=== PATIENT | male | born 1955 | race American Indian/Alaskan Native ===

== ENCOUNTER → 2017-10-31 | Outpatient (CLI) | payer MEDICARE, OTHER ==
[2017-10-31 11:05] LABS: Albumin 3.6 g/dL (3.5-5.0); Calcium 8.2 mg/dL (8.4-10.2); Total Bilirubin 0.3 mg/dL (0.2-1.3); Total Protein 6.1 g/dL (6.3-8.2)
[2017-10-31 18:20] LABS: Hemoglobin A1C 7.1 % (4.0-6.0)
== END | disposition home or self-care (01) ==
LOC: LABWHC1 09:11
PROVIDERS: ATTEND Internal Medicine Endocrinology, Diabetes & Metabolism
DX: E11.65 Type 2 diabetes mellitus with hyperglycemia (principal)
CPT/HCPCS: 36415; 80053; 80061; 82043; 82570; 83036

== ENCOUNTER → 2017-12-06 | Outpatient (CLI) | payer MEDICARE, OTHER | END | disposition home or self-care (01) | LOC: RADMRIMAIN 14:55 | PROVIDERS: ATTEND Otolaryngology | DX: Z53.9 Procedure and treatment not carried out, unspecified reason (principal) | CPT/HCPCS: 82565 ==

== ENCOUNTER → 2017-12-06 | Outpatient (CLI) | payer MEDICARE, OTHER ==
[2017-12-06 15:56] LABS: HCT 39.6 % (39.0-53.0); HGB 12.7 gm/dL (13.0-17.5); MCH 27.6 pg (25.0-35.0); MCHC 32.1 g/dL (31.0-37.0); MCV 85.9 fL (80.0-100.0); Mean Platelet Volume 6.4; Platelet Count 330 k/uL (150-450); RBC 4.61 m/uL (4.30-5.90); RDW 14.4 % (11.5-15.5); WBC 9.9 k/uL (3.8-10.6)
[2017-12-06 16:19] LABS: Appearance,Urine Clear (Clear); Bacteria,Urine Occasional /hpf; Bilirubin,Urine Negative (Negative); Blood,Urine Negative (Negative); Color,Urine Yellow; Glucose,Urine (UA) 1+ (Negative); Hyaline Casts,Urine 4 /lpf (0-2); Ketones,Urine Negative (Negative); Leukocyte Esterase,Urine Small (Negative); Mucus,Urine Rare /hpf; Nitrite,Urine Negative (Negative); Protein,Urine 3+ (Negative); RBC,Urine 1 /hpf (0-5); Specific Gravity,Urine 1.013 (1.001-1.035); Squamous Epithelial Cell,Urine 1 /hpf (0-4); Urobilinogen,Urine <2.0 mg/dL (<2.0); WBC,Urine 4 /hpf (0-5)
[2017-12-06 16:30] LABS: Calcium 8.9 mg/dL (8.4-10.2); Phosphorus 3.8 mg/dL (2.5-4.5); Potassium 5.1 mmol/L (3.5-5.1); Total Bilirubin 0.3 mg/dL (0.2-1.3); Total Protein 6.8 g/dL (6.3-8.2)
== END | disposition home or self-care (01) ==
LOC: LABWHC1 15:31
PROVIDERS: ATTEND Internal Medicine Endocrinology, Diabetes & Metabolism
DX: E78.5 Hyperlipidemia, unspecified (principal); E11.65 Type 2 diabetes mellitus with hyperglycemia; I10 Essential (primary) hypertension
CPT/HCPCS: 36415; 80053; 81001; 84100; 85027

== ENCOUNTER → 2017-12-26 | Outpatient (CLI) | payer MEDICARE, OTHER ==
--- NOTE | 2017-12-26 21:08 | US ---
EXAMINATION TYPE: US kidneys/renal and bladder DATE OF EXAM: 12/26/2017 COMPARISON: NONE CLINICAL HISTORY: E11.65 Type 2 Diabetes. Abnormal labs, pt is a diabetic EXAM MEASUREMENTS: Right Kidney: 11.3 x 5.8 x 4.9 cm Left Kidney: 11.2 x 6.1 x 5.7 cm Right Kidney: Possible perinephric edema, otherwise appeared wnl Left Kidney: Possible perinephric edema, small cyst lateral= 0.8 x 0.8 x 0.7 cm with increased throug h transmission. Bladder: wnl Bilateral Jets seen: Only left jet visualized There is no evidence for hydronephrosis at this point in time. No nephrolithiasis is seen. The uri nary bladder is anechoic. Bilateral ureteral jets are seen. IMPRESSION: 1. Crescentic areas of hypoattenuation are seen around the kidneys and may represent nonspecific isabella nephric fat stranding/edema although very less likely other considerations are for subcapsular hemato ma and the setting of trauma or perinephric masses such as lymphangiectasia or renal lymphoma. CT is recommended to ensure crescentic regions represent nonspecific perinephric fat stranding. 2. 8mm left renal cyst.
== END | disposition home or self-care (01) ==
LOC: RADUSWWP 15:19
PROVIDERS: ATTEND Internal Medicine Endocrinology, Diabetes & Metabolism
DX: N28.1 Cyst of kidney, acquired (principal); R60.0 Localized edema; E11.65 Type 2 diabetes mellitus with hyperglycemia
CPT/HCPCS: 76770

== ENCOUNTER → 2018-02-05 | Outpatient (CLI) | payer MEDICARE, OTHER ==
--- NOTE | 2018-02-05 16:19 | MR ---
EXAMINATION TYPE: MR iac wo con DATE OF EXAM: 02/05/2018 COMPARISON: NONE HISTORY: Headaches, Hearing loss bilateral. TECHNIQUE: Multiplanar, multisequence imaging of the brain and brainstem including dedicated IAC imag ing is performed without IV contrast. Contrast was not given as patient refused FINDINGS: Diffusion weighted images demonstrate no evidence of a recent infarct or other diffusion abnormality. Significant artifact degradation is present. There is no worrisome extra-axial fluid collection. There is ventricular and sulcal prominence with d iffuse cerebral atrophy. Degree of ventricular prominence is slightly out of proportion to degree of sulcal effacement and a normal pressure hydrocephalus cannot be excluded. There is prominence of the third ventricle without prominence of the fourth ventricle. Some scattered foci of T2 hyperintensity throughout the white matter are present. Midline structures demonstrate normal morphology. Thinning of corpus callosum is present. The crani ocervical junction appears within normal limits. Normal vascular flow voids are present. The visualiz ed sinuses are clear and the globes are intact. Mastoid air cells show no increased fluid signal bilaterally. Vestibulocochlear complexes are symmetr ic and felt within normal limits. IMPRESSION: 1. Suboptimal study as patient refused contrast. No worrisome fluid collection in the mastoid air diana ls are seen. 2. There is moderate diffuse cerebral atrophy, cannot exclude a normal pressure hydrocephalus. Correl ate with old outside CT or MRI would be beneficial. Mild underlying chronic small vessel ischemic jose alejandro nges present. 3. Suboptimal study due to significant artifact degradation over left frontal region and patient refu sing IV contrast.
== END | disposition home or self-care (01) ==
LOC: RADMRIMAIN 14:19
PROVIDERS: ATTEND Otolaryngology
DX: G31.9 Degenerative disease of nervous system, unspecified (principal); I67.82 Cerebral ischemia
CPT/HCPCS: 82565; 70551; A9581

== ENCOUNTER → 2018-04-30 | Outpatient (CLI) | payer MEDICARE, OTHER ==
[2018-04-30 12:03] LABS: Basophils % (A) 1 %; Eosinophils # (A) 0.3 k/uL (0-0.7); Eosinophils % (A) 4 %; HGB 12.5 gm/dL (13.0-17.5); Lymphocytes # (A) 1.4 k/uL (1.0-4.8); Lymphocytes % (A) 18 %; MCH 27.5 pg (25.0-35.0); MCHC 32.2 g/dL (31.0-37.0); MCV 85.3 fL (80.0-100.0); Mean Platelet Volume 6.2; Monocytes # (A) 0.4 k/uL (0-1.0); Monocytes % (A) 5 %; Neutrophils # (A) 5.5 k/uL (1.3-7.7); Neutrophils % (A) 71 %; Platelet Count 292 k/uL (150-450); RBC 4.57 m/uL (4.30-5.90); RDW 13.9 % (11.5-15.5); WBC 7.8 k/uL (3.8-10.6)
[2018-04-30 12:21] LABS: INR 0.9 (<1.2); Partial Thromboplastin Time 23.6 sec (22.0-30.0); Prothrombin Time 9.4 sec (9.0-12.0)
[2018-04-30 19:05] LABS: Anion Gap 7.2 mmol/L (4.00-12.00); Carbon Dioxide 23.8 mmol/L (21.6-31.8); Potassium 4.7 mmol/L (3.5-5.5)
== END | disposition home or self-care (01) ==
LOC: LABWHC1 10:35
PROVIDERS: ATTEND Internal Medicine
DX: R80.9 Proteinuria, unspecified (principal)
CPT/HCPCS: 36415; 80051; 82565; 84520; 85025; 85610; 85730

== ENCOUNTER → 2018-05-01 | Day surgery (SDC) | payer MEDICARE, OTHER ==
[~2018-05-01] MED LIST: ALPRAZolam 0.5 MG TAB PO ONE; HYDROmorphone 1 MG/ML 1 ML SYRINGE IVP PRN
[2018-05-01 09:41] VITALS: TEMP 97.9
[2018-05-01 09:41] LABS: Glucose,Whole Blood 159 mg/dL (75-99)
--- NOTE | 2018-05-01 12:03 | CT ---
EXAMINATION TYPE: CT biopsy renal LT DATE OF EXAM: 05/01/2018 COMPARISON: NONE HISTORY: Proteinuria CT DLP: 08/02/2019 mGycm The procedure was explained to the patient. The risks, complications, benefits, and alternatives wer e discussed and any questions were answered. Informed consent was obtained. Patient was placed pron e on the CT table and prepped and draped in the usual sterile fashion. Utilizing CT guidance, an 18 gauge core biopsy needle access into the left renal cortex was achieved and three 18 gauge core samples were obtained. The patient was stable throughout the procedure and r emained stable upon discharge. IMPRESSION: Successful 18 gauge core biopsy of the kidney function.
[2018-05-01 14:16] VITALS: BP 160/74; PULSE 79; RESP 18
== END ==
LOC: RADPROMAIN 09:02
PROVIDERS: ATTEND Internal Medicine Nephrology
DX: I12.9 Hypertensive chronic kidney disease with stage 1 through stage 4 chronic kidney disease, or unspecified chronic kidney disease (principal); E11.22 Type 2 diabetes mellitus with diabetic chronic kidney disease; N18.9 Chronic kidney disease, unspecified
CPT/HCPCS: 86900; 86901; 86850; 50200; 77012; J1170

== ENCOUNTER → 2018-08-13 | Outpatient (CLI) | payer MEDICARE, OTHER ==
[2018-08-13 17:17] LABS: Albumin/Globulin Ratio 1.9 (1.60-3.17); Anion Gap 10.9 mmol/L (4.00-12.00); Calcium 8.1 mg/dL (8.7-10.3); Carbon Dioxide 21.1 mmol/L (21.6-31.8); Globulin 2.1 g/dL (1.6-3.3); LDL Cholesterol,Calculated 54.2 mg/dL (0.0-131.0); Potassium 4.7 mmol/L (3.5-5.5); Total Bilirubin 0.3 mg/dL (0.2-1.2); Total Protein 6.1 g/dL (6.2-8.2); VLDL Calculation 36.8 mg/dL (5.00-40.00)
[2018-08-13 18:46] LABS: Hemoglobin A1C 8.1 % (4.0-6.0)
== END | disposition home or self-care (01) ==
LOC: LABWHC1 10:43
PROVIDERS: ATTEND Internal Medicine Endocrinology, Diabetes & Metabolism
DX: E11.65 Type 2 diabetes mellitus with hyperglycemia (principal)
CPT/HCPCS: 36415; 80053; 80061; 82043; 82570; 83036; 84443

== ENCOUNTER → 2019-03-26 | Outpatient (CLI) | payer MEDICARE, OTHER ==
[2019-03-26 17:03] LABS: African American GFR (CKD) 41.9 (60.0-200.0); Albumin 3.9 g/dL (3.80-4.90); Albumin/Globulin Ratio 1.86 (1.60-3.17); Anion Gap 12.3 mmol/L (4.00-12.00); BUN/Creat Ratio 18.42 Ratio (12.00-20.00); Calcium 8.1 mg/dL (8.7-10.3); Carbon Dioxide 22.7 mmol/L (21.6-31.8); Chol/HDL Ratio 4.45; Globulin 2.1 g/dL (1.6-3.3); LDL Cholesterol,Calculated 54.4 mg/dL (0.0-131.0); Potassium 4.6 mmol/L (3.5-5.5); Total Bilirubin 0.2 mg/dL (0.2-1.2); VLDL Calculation 45.6 mg/dL (5.00-40.00)
[2019-03-26 17:40] LABS: Hemoglobin A1C 7.6 % (4.0-6.0)
== END | disposition home or self-care (01) ==
LOC: LABWHC1 08:28
PROVIDERS: ATTEND Internal Medicine Endocrinology, Diabetes & Metabolism
DX: E11.65 Type 2 diabetes mellitus with hyperglycemia (principal)
CPT/HCPCS: 36415; 80053; 80061; 82043; 82570; 83036; 84443

== ENCOUNTER 2019-05-21 13:23 | Inpatient (IN) | payer MEDICARE, OTHER ==
[2019-05-21 13:33] LABS: Glucose,Whole Blood 187 mg/dL (75-99)
[2019-05-21] MEDS ORDERED: IPRATROPIUM 0.5 MG/2.5 ML NEBU INHALATION STA (13:34)
[2019-05-21] MEDS ORDERED: methylPREDNISolone SOD SUCCI 125 MG/2 ML VIAL IV STA (13:34)
[2019-05-21] MEDS ORDERED: ALBUTEROL NEBULIZED 2.5 MG/3 ML INHALATION STA (13:34)
[2019-05-21 14:11] LABS: Basophils # (A) 0.1 k/uL (0-0.2); Basophils % (A) 1 %; Eosinophils % (A) 0 %; HCT 34.6 % (39.0-53.0); HGB 11.3 gm/dL (13.0-17.5); Lymphocytes # (A) 0.4 k/uL (1.0-4.8); Lymphocytes % (A) 4 %; MCH 27.3 pg (25.0-35.0); MCHC 32.6 g/dL (31.0-37.0); MCV 83.5 fL (80.0-100.0); Monocytes # (A) 0.6 k/uL (0-1.0); Monocytes % (A) 6 %; Neutrophils # (A) 8.6 k/uL (1.3-7.7); Neutrophils % (A) 88 %; Platelet Count 238 k/uL (150-450); RBC 4.14 m/uL (4.30-5.90); RDW 13.8 % (11.5-15.5); WBC 9.8 k/uL (3.8-10.6)
[2019-05-21 14:20] LABS: Albumin 3.4 g/dL (3.5-5.0); Calcium 6.7 mg/dL (8.4-10.2); Potassium 3.4 mmol/L (3.5-5.1); Total Bilirubin 0.8 mg/dL (0.2-1.3); Total Protein 6.4 g/dL (6.3-8.2)
[2019-05-21] MEDS ORDERED: LORazepam 2 MG/ML INJ IV STA (14:31)
--- NOTE | 2019-05-21 14:36 | XR ---
EXAMINATION TYPE: XR chest 1V portable DATE OF EXAM: 05/21/2019 COMPARISON: 11/03/2014 HISTORY: Chest pain short of breath TECHNIQUE: Single view FINDINGS: There is moderate pulmonary edema. Heart is probably enlarged. There are chest leads. There is no definite pleural effusion. IMPRESSION: Moderately severe pulmonary edema is new compared to old exam and could relate to acute h eart failure or RDS.
[2019-05-21] MEDS ORDERED: FUROSEMIDE 10 MG/ML 10 ML VIAL IV STA (14:43)
[2019-05-21] MEDS ORDERED: NITROGLYCERIN-D5W PMX 50 MG in DEXTROSE/WATER 1 250ML.BAG IV ONE (14:43)
[2019-05-21] MEDS ORDERED: HEPARIN SODIUM,PORCINE 5,000 UNIT/ML 1 ML VIAL SQ SCH (14:45)
--- NOTE | 2019-05-21 14:46 | P.HPIM ---
History of Present Illness this is a pleasant 63 years old male with past medical history of COPD not on home oxygen or steroids, status post cardiac arrest in 2016 and he follows up with Dr. Saavedra clothing examiner, diabetes mellitus, hypertension, hyperlipidemia, sleep apnea on CPAP, previous smoker since 2009 he quit. to presents because of worsening dyspnea of one week duration associated with cough and white phlegm especially when he takes his inhaler. Associated with orthopnea and paroxysmal nocturnal dyspnea but no chest pain. He denies abdominal pain, no headache, no vomiting, no change in urine or bowel habits. No fever vitals on admission showing tachycardia and high blood pressure 190/95. He was immediately placed on BiPAP. Labs showingunremarkable CBC and INR, sodium 132, potassium 3.4, creatinine is 3.9. Lactic acid 1.5, AST 75 and ALT 41.. Chest x-ray showing fluid overload. Patient was started on nitroglycerin drip and given 1 dose of Lasix 80 mg. Review of Systems CONSTITUTIONAL: No fever, no malaise, no fatigue. HEENT: No recent visual problems or hearing problems. Denied any sore throat. CARDIOVASCULAR: no palpitations, no syncope. PULMONARY: no hemoptysis. GASTROINTESTINAL: No diarrhea, no nausea, no vomiting, no abdominal pain. Normoactive bowel sounds. NEUROLOGICAL: No headaches, no weakness, no numbness. HEMATOLOGICAL: Denies any bleeding or petechiae. GENITOURINARY: Denies any burning micturition, frequency, or urgency. MUSCULOSKELETAL/RHEUMATOLOGICAL: Denies any joint pain, swelling, or any muscle pain. ENDOCRINE: Denies any polyuria or polydipsia. Past Medical History Past Medical History: COPD, Diabetes Mellitus, Hyperlipidemia, Hypertension, Sleep Apnea/CPAP/BIPAP Additional Past Medical History / Comment(s): callus removed 1rst digit left foot-prophylactic tx of antibiotic currently,uses cpap History of Any Multi-Drug Resistant Organisms: None Reported Past Surgical History: Joint Replacement Additional Past Surgical History / Comment(s): rt total hip Additional Past Anesthesia/Blood Transfusion Reaction / Comment(s): heartrate went very low in recovery room and admitted into icu for hip surgery at [facility]. Past Psychological History: No Psychological Hx Reported Smoking Status: Former smoker Past Alcohol Use History: None Reported Past Drug Use History: None Reported - Past Family History Mother Family Medical History: No Reported History Sister(s) Family Medical History: Cancer Brother(s) Family Medical History: Cancer Medications and Allergies Home Medications Medication Instructions Recorded Confirmed Type Atorvastatin [Lipitor] 80 mg PO HS 11/03/14 05/01/18 History Budesonide-Formot 160-4.5 Mcg 2 puff INHALATION BID 11/03/14 05/01/18 History [Symbicort 160-4.5 Mcg Inhaler] Tiotropium Docena [Spiriva 2 puff INHALATION DAILY 11/03/14 05/01/18 History Respimat] metFORMIN HCL [Glucophage] 1,000 mg PO BID 11/03/14 05/01/18 History Albuterol Inhaler [Ventolin Hfa 1 - 2 puff INHALATION RT-Q6H PRN 04/11/18 05/01/18 History Inhaler] Albuterol Nebulized [Ventolin 2.5 mg INHALATION Q6H PRN 04/11/18 05/01/18 History Nebulized] Amoxicillin 250 mg PO Q8H 04/11/18 05/01/18 History Dorzolamide HCl/Pf [Dorzolamide 2% 1 drop BOTH EYES BID 04/11/18 05/01/18 Hi story Eye Drop] Ergocalciferol [Vitamin D2] 50,000 unit PO Q7D 04/11/18 05/01/18 History Ferrous Sulfate [Iron] 325 mg PO DAILY 04/11/18 05/01/18 History Hydrochlorothiazide 25 mg PO DAILY 04/11/18 05/01/18 History Insulin NPH Hum/Reg Insulin Hm 57 unit SQ QAM 04/11/18 05/01/18 History [NovoLIN 70-30 100 UNIT/ML VIAL] Insuln Asp Prt/Insulin Aspart 56 unit SQ 1800 04/11/18 05/01/18 History [NovoLOG MIX 70-30 VIAL] Latanoprost [Xalatan 0.005%] 1 drop BOTH EYES HS 04/11/18 05/01/18 History Losartan Potassium [Cozaar] 100 mg PO DAILY 04/11/18 05/01/18 History Methocarbamol [Robaxin] 500 mg PO TID PRN 04/11/18 05/01/18 History Pregabalin [Lyrica] 100 mg PO TID 04/11/18 05/01/18 History amLODIPine BESYLATE 10 mg PO DAILY 04/11/18 05/01/18 History cloNIDine HCL [Catapres] 0.2 mg PO BID 04/11/18 05/01/18 History hydrALAZINE HCL [Apresoline] 100 mg PO TID 04/11/18 05/01/18 History Allergies Allergy/AdvReac Type Severity Reaction Status Date / Time antibiotic Allergy pt not Uncoded 05/01/18 09:28 sure of name,throat swelling Physical Exam Vitals: Vital Signs Temp Pulse Resp BP Pulse Ox 05/21/19 14:16 113 H 05/21/19 14:13 112 H 20 190/95 97 05/21/19 13:40 105 H 05/21/19 13:34 105 H 24 163/82 88 L 05/21/19 13:33 24 05/21/19 13:30 98.6 F 114 H 16 127/65 64 L Intake and Output 05/20/19 05/21/19 05/21/19 22:59 06:59 14:59 Other: Weight 107.501 kg GENERAL: The patient is alert and oriented x3, not in any acute distress. Well developed, well nourished. HEENT: Pupils are round and equally reacting to light. EOMI. No scleral icterus. No conjunctival pallor. Normocephalic, atraumatic. No pharyngeal erythema. No thyromegaly. CARDIOVASCULAR: S1 and S2 present. No murmurs, rubs, or gallops. -PULMONARY: Chest is clear to auscultation, bilateral scattered wheezing with bilateral coarse crepitation ABDOMEN: Soft, nontender, nondistended, normoactive bowel sounds. No palpable organomegaly. MUSCULOSKELETAL: No joint swelling or deformity. -EXTREMITIES: No cyanosis, clubbing,. Bilateral leg edema, pitting NEUROLOGICAL: Gross neurological examination did not reveal any focal deficits. SKIN: No rashes. No petechiae Results CBC & Chem 7: 05/21/19 13:54 05/21/19 13:54 Labs: Abnormal Lab Results - Last 24 Hours (Table) 05/21/19 05/21/19 05/21/19 Range/Units 13:32 13:54 13:54 RBC 4.14 L (4.30-5.90) m/uL Hgb 11.3 L (13.0-17.5) gm/dL Hct 34.6 L (39.0-53.0) % Neutrophils # 8.6 H (1.3-7.7) k/uL Lymphocytes # 0.4 L (1.0-4.8) k/uL Sodium 132 L (137-145) mmol/L Potassium 3.4 L (3.5-5.1) mmol/L Chloride 96 L (98-107) mmol/L Carbon Dioxide 19 L (22-30) mmol/L BUN 67 H (9-20) mg/dL Creatinine 3.94 H (0.66-1.25) mg/dL Glucose 182 H (74-99) mg/dL POC Glucose (mg/dL) 187 H (75-99) mg/dL Calcium 6.7 L (8.4-10.2) mg/dL AST 75 H (17-59) U/L Albumin 3.4 L (3.5-5.0) g/dL Assessment and Plan Assessment: acute pulmonary congestion, suspicious for acute heart failure Hypertensive urgency possible acute COPD exacerbation acute hypoxic respiratory failure Acute kidney injury on chronic kidney disease CKD, stage III hypokalemia diabetes mellitus Hypertension Hyperlipidemia Sleep apnea on CPAP/BiPAP Plan: this is a pleasant 63 years old male who presents with acute renal failure and respiratory failure from fluid congestion of the lungs. Continue with BiPAP. Consult legal manager. Continue with Lasix. Check renal ultrasound. Check echocardiogram. cardiology consult. Continue with BiPAP as needed Labs and medication were reviewed.. Continue same treatment. Continue with sym ptomatic treatment. Resume home medication. Monitor lytes and vitals. DVT and GI prophylaxis. Further recommendations of the clinical course of the patient DVT prophylaxis: Subcutaneous heparin GI Prophylaxis: Pepcid PT/OT: Pending Prognosis is guarded
[2019-05-21 14:59] LABS: INR 0.9 (<1.2); Partial Thromboplastin Time 26.7 sec (22.0-30.0); Prothrombin Time 9.4 sec (9.0-12.0)
[2019-05-21] MEDS ORDERED: ASPIRIN 325 MG TAB PO STA (15:00)
[2019-05-21] MEDS ORDERED: OSELTAMIVIR 75 MG CAP PO STA (15:16)
[2019-05-21] MEDS ORDERED: IPRATROPIUM-ALBUTEROL 3 ML NEB INHALATION PRN (15:56)
[2019-05-21] MEDS ORDERED: ALBUTEROL NEBULIZED 2.5 MG/3 ML INHALATION PRN (16:00)
--- NOTE | 2019-05-21 16:03 | ED ---
General Adult HPI - General Chief complaint: Shortness of Breath Stated complaint: ROBERT Time Seen by Provider: 05/21/19 13:27 Source: patient, EMS, RN notes reviewed, old records reviewed Mode of arrival: EMS Limitations: no limitations - History of Present Illness Initial comments: 63-year-old male presents through a mandatory triage with chief complaint of dyspnea. Patient found to be severely hypoxic in the 60s. He is taken toresuscitation room. He states he's been sick for approximately one week with minimal cough and dyspnea. He does report some lower extremity swelling. He has a history of COPD states his inhalers have not been working. He denies fever. Denies chest pain. No history of heart failure. history limited Secondary to severe respiratory distress. - Related Data Home Medications Medication Instructions Recorded Confirmed Atorvastatin [Lipitor] 80 mg PO HS 11/03/14 05/01/18 Budesonide-Formot 160-4.5 Mcg 2 puff INHALATION BID 11/03/14 05/01/18 [Symbicort 160-4.5 Mcg Inhaler] Tiotropium Pritchett [Spiriva 2 puff INHALATION DAILY 11/03/14 05/01/18 Respimat] metFORMIN HCL [Glucophage] 1,000 mg PO BID 11/03/14 05/01/18 Albuterol Inhaler [Ventolin Hfa 1 - 2 puff INHALATION RT-Q6H PRN 04/11/18 05/01/18 Inhaler] Albuterol Nebulized [Ventolin 2.5 mg INHALATION Q6H PRN 04/11/18 05/01/18 Nebulized] Amoxicillin 250 mg PO Q8H 04/11/18 05/01/18 Dorzolamide HCl/Pf [Dorzolamide 2% 1 drop BOTH EYES BID 04/11/18 05/01/18 Eye Drop] Ergocalciferol [Vitamin D2] 50,000 unit PO Q7D 04/11/18 05/01/18 Ferrous Sulfate [Iron] 325 mg PO DAILY 04/11/18 05/01/18 Hydrochlorothiazide 25 mg PO DAILY 04/11/18 05/01/18 Insulin NPH Hum/Reg Insulin Hm 57 unit SQ QAM 04/11/18 05/01/18 [NovoLIN 70-30 100 UNIT/ML VIAL] Insuln Asp Prt/Insulin Aspart 56 unit SQ 1800 04/11/18 05/01/18 [NovoLOG MIX 70-30 VIAL] Latanoprost [Xalatan 0.005%] 1 drop BOTH EYES HS 04/11/18 05/01/18 Losartan Potassium [Cozaar] 100 mg PO DAILY 04/11/18 05/01/18 Methocarbamol [Robaxin] 500 mg PO TID PRN 04/11/18 05/01/18 Pregabalin [Lyrica] 100 mg PO TID 04/11/18 05/01/18 amLODIPine BESYLATE 10 mg PO DAILY 04/11/18 05/01/18 cloNIDine HCL [Catapres] 0.2 mg PO BID 04/11/18 05/01/18 hydrALAZINE HCL [Apresoline] 100 mg PO TID 04/11/18 05/01/18 Allergies Allergy/AdvReac Type Severity Reaction Status Date / Time antibiotic Allergy pt not Uncoded 05/01/18 09:28 sure of name,throat swelling Review of Systems ROS Statement: Those systems with pertinent positive or pertinent negative responses have been documented in the HPI. ROS Other: All systems not noted in ROS Statement are negative. Past Medical History Past Medical History: COPD, Diabetes Mellitus, Hyperlipidemia, Hypertension, Sleep Apnea/CPAP/BIPAP Additional Past Medical History / Comment(s): callus removed 1rst digit left foot-prophylactic tx of antibiotic currently,uses cpap History of Any Multi-Drug Resistant Organisms: None Reported Past Surgical History: Joint Replacement Additional Past Surgical History / Comment(s): rt total hip Additional Past Anesthesia/Blood Transfusion Reaction / Comment(s): heartrate went very low in recovery room and admitted into icu for hip surgery at [facility]. Past Psychological History: No Psychological Hx Reported Smoking Status: Former smoker Past Alcohol Use History: None Reported Past Drug Use History: None Reported - Past Family History Mother Family Medical History: No Reported History Sister(s) Family Medical History: Cancer Brother(s) Family Medical History: Cancer General Exam Limitations: no limitations General appearance: alert, in distress Head exam: Present: atraumatic, normocephalic Eye exam: Present: normal appearance, PERRL ENT exam: Present: mucous membranes dry Neck exam: Present: normal inspection. Absent: tenderness, meningismus Respiratory exam: Present: respiratory distress, wheezes, rhonchi, accessory muscle use, decreased breath sounds Cardiovascular Exam: Present: normal rhythm, tachycardia GI/Abdominal exam: Present: soft, distended. Absent: tenderness, guarding, rebound Extremities exam: Present: pedal edema Neurological exam: Present: alert, oriented X3, CN II-XII intact. Absent: motor sensory deficit Psychiatric exam: Present: normal affect, normal mood Skin exam: Present: warm, dry, intact. Absent: cyanosis, diaphoretic Course Vital Signs 05/21/19 05/21/19 05/21/19 13:30 13:33 13:34 Temperature 98.6 F Pulse Rate 114 H 105 H Respiratory 16 24 24 Rate Blood Pressure 127/65 163/82 O2 Sat by Pulse 64 L 88 L Oximetry 05/21/19 05/21/19 05/21/19 13:40 14:13 14:16 Temperature Pulse Rate 105 H 112 H 113 H Respiratory 20 Rate Blood Pressure 190/95 O2 Sat by Pulse 97 Oximetry 05/21/19 05/21/19 14:33 15:34 Temperature Pulse Rate 114 H 105 H Respiratory 16 Rate Blood Pressure 136/70 O2 Sat by Pulse 98 Oximetry EKG Findings - EKG Comments: EKG Findings:: EKG: Sinus tachycardia no ST segment elevation, rate of 108, NC interval 138, QRS duration 112, QTC 474 Procedures - [place] Protocol (Time Out) Nurse: Natalya Mendez Medical Decision Making - Medical Decision Making 63-year-old male presenting in severe respiratory distress, hypoxic respiratory failure placed on BiPAP with significant improvement in oxygenation. Given albuterol, Atrovent, steroids. Patient states she is found to be in acute renal failure with a creatinine of 3.94, baseline creatinine is 1.9. He has a significantly elevated BNP at 6890. Troponin is elevated 2.17 likely secondary to renal failure and congestive heart failure. He hasn't no leukocytosis, white blood cell count 9.8, hemoglobin is 11.3. He has mild left foot abnormalities with a sodium 132 and potassium 3.4. His an x-ray showing diffuse pulmonary edema, concern for ARDS. He is influenza A positive. He's continued on BiPAP, initiated on Tamiflu, given a dose of Levaquin. He will be admitted for multifactorial dyspnea, acute fluid overload and pulmonary edema, ARDS, COPD, hypoxic respiratory failure. Case is discussed with the admitting physician , covering physician Dr. Spence, and the pulmonary laborer chicken farm Dr. Shields, who does recommend Lasix drip. Closely monitored in the emergency department with improvement and vitals on BiPAP. He will be admitted to the ICU - Lab Data Result diagrams: 05/21/19 13:54 05/21/19 13:54 Lab Results 05/21/19 05/21/19 05/21/19 Range/Units 13:32 13:50 13:54 WBC 9.8 (3.8-10.6) k/uL RBC 4.14 L (4.30-5.90) m/uL Hgb 11.3 L (13.0-17.5) gm/dL Hct 34.6 L (39.0-53.0) % MCV 83.5 (80.0-100.0) fL MCH 27.3 (25.0-35.0) pg MCHC 32.6 (31.0-37.0) g/dL RDW 13.8 (11.5-15.5) % Plt Count 238 (150-450) k/uL Neutrophils % 88 % Lymphocytes % 4 % Monocytes % 6 % Eosinophils % 0 % Basophils % 1 % Neutrophils # 8.6 H (1.3-7.7) k/uL Lymphocytes # 0.4 L (1.0-4.8) k/uL Monocytes # 0.6 (0-1.0) k/uL Eosinophils # 0.0 (0-0.7) k/uL Basophils # 0.1 (0-0.2) k/uL PT (9.0-12.0) sec INR (<1.2) APTT (22.0-30.0) sec Sodium (137-145) mmol/L Potassium (3.5-5.1) mmol/L Chloride (98-107) mmol/L Carbon Dioxide (22-30) mmol/L Anion Gap mmol/L BUN (9-20) mg/dL Creatinine (0.66-1.25) mg/dL Est GFR (CKD-EPI)AfAm (>60 ml/min/1.73 sqM) Est GFR (CKD-EPI)NonAf (>60 ml/min/1.73 sqM) Glucose (74-99) mg/dL POC Glucose (mg/dL) 187 H (75-99) mg/dL POC Glu Ambulance Dispatcher ID Urmila Martínez Plasma Lactic Acid Parminder (0.7-2.0) mmol/L Calcium (8.4-10.2) mg/dL Total Bilirubin (0.2-1.3) mg/dL AST (17-59) U/L ALT (4-49) U/L Alkaline Phosphatase (38-126) U/L Troponin I (0.000-0.034) ng/mL NT-Pro-B Natriuret Pep pg/mL Total Protein (6.3-8.2) g/dL Albumin (3.5-5.0) g/dL Influenza Type A RNA Detected H (Not Detectd) Influenza Type B (PCR) Not Detected (Not Detectd) 05/21/19 05/21/19 05/21/19 Range/Units 13:54 13:54 13:54 WBC (3.8-10.6) k/uL RBC (4.30-5.90) m/uL Hgb (13.0-17.5) gm/dL Hct (39.0-53.0) % MCV (80.0-100.0) fL MCH (25.0-35.0) pg MCHC (31.0-37.0) g/dL RDW (11.5-15.5) % Plt Count (150-450) k/uL Neutrophils % % Lymphocytes % % Monocytes % % Eosinophils % % Basophils % % Neutrophils # (1.3-7.7) k/uL Lymphocytes # (1.0-4.8) k/uL Monocytes # (0-1.0) k/uL Eosinophils # (0-0.7) k/uL Basophils # (0-0.2) k/uL PT (9.0-12.0) sec INR (<1.2) APTT (22.0-30.0) sec Sodium 132 L (137-145) mmol/L Potassium 3.4 L (3.5-5.1) mmol/L Chloride 96 L (98-107) mmol/L Carbon Dioxide 19 L (22-30) mmol/L Anion Gap 17 mmol/L BUN 67 H (9-20) mg/dL Creatinine 3.94 H (0.66-1.25) mg/dL Est GFR (CKD-EPI)AfAm 17 (>60 ml/min/1.73 sqM) Est GFR (CKD-EPI)NonAf 15 (>60 ml/min/1.73 sqM) Glucose 182 H (74-99) mg/dL POC Glucose (mg/dL) (75-99) mg/dL POC Glu Ambulance Dispatcher ID Plasma Lactic Acid Parminder 1.5 (0.7-2.0) mmol/L Calcium 6.7 L (8.4-10.2) mg/dL Total Bilirubin 0.8 (0.2-1.3) mg/dL AST 75 H (17-59) U/L ALT 41 (4-49) U/L Alkaline Phosphatase 98 (38-126) U/L Troponin I (0.000-0.034) ng/mL NT-Pro-B Natriuret Pep 6890 pg/mL Total Protein 6.4 (6.3-8.2) g/dL Albumin 3.4 L (3.5-5.0) g/dL Influenza Type A RNA (Not Detectd) Influenza Type B (PCR) (Not Detectd) 05/21/19 05/21/19 Range/Units 13:54 14:29 WBC (3.8-10.6) k/uL RBC (4.30-5.90) m/uL Hgb (13.0-17.5) gm/dL Hct (39.0-53.0) % MCV (80.0-100.0) fL MCH (25.0-35.0) pg MCHC (31.0-37.0) g/dL RDW (11.5-15.5) % Plt Count (150-450) k/uL Neutrophils % % Lymphocytes % % Monocytes % % Eosinophils % % Basophils % % Neutrophils # (1.3-7.7) k/uL Lymphocytes # (1.0-4.8) k/uL Monocytes # (0-1.0) k/uL Eosinophils # (0-0.7) k/uL Basophils # (0-0.2) k/uL PT 9.4 (9.0-12.0) sec INR 0.9 (<1.2) APTT 26.7 (22.0-30.0) sec Sodium (137-145) mmol/L Potassium (3.5-5.1) mmol/L Chloride (98-107) mmol/L Carbon Dioxide (22-30) mmol/L Anion Gap mmol/L BUN (9-20) mg/dL Creatinine (0.66-1.25) mg/dL Est GFR (CKD-EPI)AfAm (>60 ml/min/1.73 sqM) Est GFR (CKD-EPI)NonAf (>60 ml/min/1.73 sqM) Glucose (74-99) mg/dL POC Glucose (mg/dL) (75-99) mg/dL POC Glu Ambulance Dispatcher ID Plasma Lactic Acid Parminder (0.7-2.0) mmol/L Calcium (8.4-10.2) mg/dL Total Bilirubin (0.2-1.3) mg/dL AST (17-59) U/L ALT (4-49) U/L Alkaline Phosphatase (38-126) U/L Troponin I 2.170 H* (0.000-0.034) ng/mL NT-Pro-B Natriuret Pep pg/mL Total Protein (6.3-8.2) g/dL Albumin (3.5-5.0) g/dL Influenza Type A RNA (Not Detectd) Influenza Type B (PCR) (Not Detectd) Critical Care Time Critical Care Time: Yes Total Critical Care Time: 35 Disposition Clinical Impression: Congestive heart failure, Acute pulmonary edema, Acute respiratory distress syndrome in adult, Acute exacerbation of chronic obstructive pulmonary disease, Influenza A Disposition: ADMITTED IP TO THIS HOSP Condition: Serious Is patient prescribed a controlled substance at d/c from ED?: No Referrals: Pastora Cisse MD [Primary Care Provider] - 1-2 days Decision to Admit Reason: Admit from EC Decision Date: 05/21/19 Decision Time: 16:03
[2019-05-21] MEDS ORDERED: LEVOFLOXACIN 500MG-D5W PMX 500 MG in DEXTROSE/WATER 1 100ML.BAG IVPB STA (16:04)
--- NOTE | 2019-05-21 16:33 | US ---
EXAMINATION TYPE: US renals and bladder DATE OF EXAM: 05/21/2019 COMPARISON: NONE CLINICAL HISTORY: mel. ROBERT, diabetic EXAM MEASUREMENTS: Right Kidney: 11.0 x 5.9 x 7.0 cm Left Kidney: 11.1 x 7.4 x 6.9 cm Post Void Residual Volume: not assessed on EC trauma room patient Right Kidney: No hydronephrosis or masses seen; multiple crescent shaped areas adjacent to renal isabella phery may be sonographic "sweat sign" suggestive of renal failure Left Kidney: No hydronephrosis or masses seen ; multiple crescent shaped areas adjacent to renal isabella phery may be sonographic "sweat sign" suggestive of renal failure Bladder: wnl Bilateral Jets seen: no, only left jet was seen. ROBERT caused motion color artifact, thus right uret eral jet was not seen. There is no evidence for hydronephrosis at this point in time. No nephrolithiasis is seen. No timothy s are identified. The urinary bladder is anechoic. IMPRESSION: No evidence of renal mass or obstruction.
[2019-05-21 16:38] LABS: ABG Base Excess -7.6 mmol/L; ABG HCO3 18 mmol/L (21-25); ABG Oxygen Saturation 90.4 % (94-97); ABG PCO2 32 mmHg (35-45); ABG PH 7.36 (7.35-7.45); ABG PO2 64 mmHg (83-108); ABG TCO2 19 mmol/L (19-24); Allen Test Performed? Yes
[2019-05-21] MEDS: IPRATROPIUM-ALBUTEROL 3 ML NEB INHALATION SCH ×2 (16:56→20:26)
[2019-05-21 17:05] LABS: Glucose,Whole Blood 252 mg/dL (75-99)
[2019-05-21] MEDS: FUROSEMIDE 100 MG in SODIUM CHLORIDE 0.9% 90 ML IV SCH (17:43)
[2019-05-21] MEDS: methylPREDNISolone SOD SUCCI 125 MG/2 ML VIAL IV SCH (18:19)
[2019-05-21 20:31] LABS: Glucose,Whole Blood 321 mg/dL (75-99)
[2019-05-21] MEDS ORDERED: FAMOTIDINE 20 MG/2 ML VIAL IV SCH ×2 (21:00)
[2019-05-21] MEDS: hydrALAZINE HCL 50 MG TAB PO SCH (21:15)
[2019-05-21] MEDS: cloNIDine HCL 0.1 MG TAB PO SCH (21:15)
[2019-05-21] MEDS: PIPERACILLIN-TAZOBACTAM 3.375 GM in SODIUM CHLORIDE 0.9% 100 ML IVPB SCH (21:16)
[2019-05-21] MEDS: INSULIN ASPART (NovoLOG) 100 UNIT/ML VIAL SQ SCH (21:16)
[2019-05-21] MEDS: PANTOPRAZOLE 40 MG/10 ML VIAL IVP SCH (21:16)
[2019-05-22] MEDS ORDERED: HEPARIN SODIUM,PORCINE 5,000 UNIT/ML 1 ML VIAL SQ SCH
[2019-05-22] MEDS: methylPREDNISolone SOD SUCCI 125 MG/2 ML VIAL IV SCH ×2 (00:29→06:45)
[2019-05-22] MEDS: HEPARIN SODIUM,PORCINE 5,000 UNIT/ML 1 ML VIAL SQ SCH ×3 (00:29→15:02)
[2019-05-22] MEDS: FUROSEMIDE 100 MG in SODIUM CHLORIDE 0.9% 90 ML IV SCH ×2 (00:43→11:16)
[2019-05-22 05:20] LABS: Basophils % (A) 0 %; Eosinophils % (A) 0 %; HCT 34.3 % (39.0-53.0); HGB 10.9 gm/dL (13.0-17.5); Hypochromasia Slight; Lymphocytes # (A) 0.4 k/uL (1.0-4.8); Lymphocytes % (A) 4 %; MCH 28.2 pg (25.0-35.0); MCHC 31.9 g/dL (31.0-37.0); MCV 88.3 fL (80.0-100.0); Mean Platelet Volume 7.5; Monocytes # (A) 0.3 k/uL (0-1.0); Monocytes % (A) 3 %; Neutrophils # (A) 7.6 k/uL (1.3-7.7); Neutrophils % (A) 90 %; Platelet Count 243 k/uL (150-450); RBC 3.88 m/uL (4.30-5.90); RDW 13.6 % (11.5-15.5); WBC 8.4 k/uL (3.8-10.6)
[2019-05-22 05:35] LABS: Albumin 3.2 g/dL (3.5-5.0); Calcium 6.5 mg/dL (8.4-10.2); Magnesium 2.2 mg/dL (1.6-2.3); Total Protein 6.4 g/dL (6.3-8.2)
[2019-05-22 06:42] LABS: Glucose,Whole Blood 320 mg/dL (75-99)
[2019-05-22] MEDS: INSULIN ASPART (NovoLOG) 100 UNIT/ML VIAL SQ SCH (06:45)
--- NOTE | 2019-05-22 07:14 | XR ---
EXAMINATION TYPE: XR chest 1V DATE OF EXAM: 05/22/2019 HISTORY: Shortness of breath. COMPARISON: 05/21/2019 TECHNIQUE: Single view of the chest is submitted. FINDINGS: Demonstrated are scattered senescent parenchymal change. Persistent airspace infiltrates throughout the right lung greatest within the right upper lobe slight ly improved relative to the prior study. Mild patchy density left lower lobe as well. Suspect small l eft-sided pleural effusion. The heart is stable. Hilar and mediastinal structures are within normal limits. Degenerative changes are seen of the dorsal spine. IMPRESSION: 1. Persistent airspace infiltrates throughout the right lung greatest within the right upper lobe sl ightly improved relative to the prior study. Mild patchy density left lower lobe as well. Suspect sma ll left-sided pleural effusion.
[2019-05-22] MEDS ORDERED: DOCUSATE 100 MG CAP PO PRN (08:39)
[2019-05-22] MEDS: IPRATROPIUM-ALBUTEROL 3 ML NEB INHALATION SCH ×4 (08:48→20:01)
[2019-05-22] MEDS ORDERED: LOSARTAN 50 MG TAB PO SCH (09:00)
--- NOTE | 2019-05-22 09:16 | P.CRDCN ---
History of Present Illness Consult date: 05/22/19 History of present illness: This is a 63-year-old gentleman with history of hypertension, insulin-dependent diamonds mellitus and apparently chronic renal failure who was admitted to the hospital with progressive shortness of breath. A chest x-ray showed picture of possible pulmonary edema versus ARDS. Patient is also positive for influenza A. He was started on IV Lasix drip and was admitted to the hospital. His creatinine on admission was about 3.5 and 3.4. Patient did not complain of any chest pain. His EKGs did not really any acute changes. Apparently patient had severe bradycardia and cardiac arrest after hip surgery and was seen by Dr. Saavedra and has been followed by him. No definite history of previous myocardial infarction. Patient is maintaining sinus rhythm. His creatinine has gone up this morning. His troponin was high but was felt to be secondary to renal failure and CHF. We're going to get an echocardiogram and follow-up troponin. Nephrology consult is pending. We'll continue also on IV diuretics. Further examination depend upon the clinical course. Review of Systems REVIEW OF SYSTEMS: CONSTITUTIONAL:. Patient is in moderate respiratory distress EYES: Denies diplopia, blurring of vision EARS, NOSE, MOUTH, THROAT: Denies headaches, denies sore throat. CARDIOVASCULAR: As per HPI RESPIRATORY: As per HPI GASTROINTESTINAL: Denies change in appetite, denies abdominal pain, denies diarrhea GENITOURINARY: Denies hematuria, denies infections. MUSKULOSKELETAL: Denies pain, denies swelling. Denies any cramps or claudication INTEGUMENTARY: Denies rash, denies eczema. NEUROLOGICAL: Denies focal weakness, or visual disturbance. Denies any dizziness or syncope PSYCHIATRIC: Denies anxiety, denies depression. HEMATOLOGIC/LYMPHATIC: Denies any bleeding, denies enlarged lymph nodes. Past Medical History Past Medical History: COPD, Diabetes Mellitus, Hyperlipidemia, Hypertension, Sleep Apnea/CPAP/BIPAP Additional Past Medical History / Comment(s): callus removed 1rst digit left foot-prophylactic tx of antibiotic currently,uses cpap. diabetic retinopathy History of Any Multi-Drug Resistant Organisms: None Reported Past Surgical History: Joint Replacement Additional Past Surgical History / Comment(s): rt total hip Additional Past Anesthesia/Blood Transfusion Reaction / Comment(s): heartrate went very low in recovery room and admitted into icu for hip surgery at [facility]. Past Psychological History: No Psychological Hx Reported Smoking Status: Former smoker Past Alcohol Use History: None Reported Additional Past Alcohol Use History / Comment(s): quit smoking approx 2009,smoked approx since age 13,<1ppd Past Drug Use History: None Reported - Past Family History Mother Family Medical History: No Reported History Sister(s) Family Medical History: Cancer Brother(s) Family Medical History: Cancer Medications and Allergies Home Medications Medication Instructions Recorded Confirmed Type Atorvastatin [Lipitor] 80 mg PO HS 11/03/14 05/01/18 History Budesonide-Formot 160-4.5 Mcg 2 puff INHALATION BID 11/03/14 05/01/18 History [Symbicort 160-4.5 Mcg Inhaler] Tiotropium [place] [Spiriva 2 puff INHALATION DAILY 11/03/14 05/01/18 History Respimat] metFORMIN HCL [Glucophage] 1,000 mg PO BID 11/03/14 05/01/18 History Albuterol Inhaler [Ventolin Hfa 1 - 2 puff INHALATION RT-Q6H PRN 04/11/18 05/01/18 History Inhaler] Albuterol Nebulized [Ventolin 2.5 mg INHALATION Q6H PRN 04/11/18 05/01/18 Hi story Nebulized] Amoxicillin 250 mg PO Q8H 04/11/18 05/01/18 History Dorzolamide HCl/Pf [Dorzolamide 2% 1 drop BOTH EYES BID 04/11/18 05/01/18 History Eye Drop] Ergocalciferol [Vitamin D2] 50,000 unit PO Q7D 04/11/18 05/01/18 History Ferrous Sulfate [Iron] 325 mg PO DAILY 04/11/18 05/01/18 History Hydrochlorothiazide 25 mg PO DAILY 04/11/18 05/01/18 History Insulin NPH Hum/Reg Insulin Hm 57 unit SQ QAM 04/11/18 05/01/18 History [NovoLIN 70-30 100 UNIT/ML VIAL] Insuln Asp Prt/Insulin Aspart 56 unit SQ 1800 04/11/18 05/01/18 History [NovoLOG MIX 70-30 VIAL] Latanoprost [Xalatan 0.005%] 1 drop BOTH EYES HS 04/11/18 05/01/18 History Losartan Potassium [Cozaar] 100 mg PO DAILY 04/11/18 05/01/18 History Methocarbamol [Robaxin] 500 mg PO TID PRN 04/11/18 05/01/18 History Pregabalin [Lyrica] 100 mg PO TID 04/11/18 05/01/18 History amLODIPine BESYLATE 10 mg PO DAILY 04/11/18 05/01/18 History cloNIDine HCL [Catapres] 0.2 mg PO BID 04/11/18 05/01/18 History hydrALAZINE HCL [Apresoline] 100 mg PO TID 04/11/18 05/01/18 History Allergies Allergy/AdvReac Type Severity Reaction Status Date / Time clindamycin Allergy Anaphylaxis Verified 05/21/19 17:00 Physical Exam Vitals: Vital Signs Temp Pulse Resp BP Pulse Ox 05/22/19 09:03 94 05/22/19 08:48 89 05/22/19 07:00 87 59 H 117/74 94 L 05/22/19 06:00 88 27 H 150/78 94 L 05/22/19 05:00 92 22 130/70 94 L 05/22/19 04:00 98.1 F 86 19 113/67 94 L 05/22/19 03:00 85 22 131/70 93 L 05/22/19 02:00 90 24 132/62 93 L 05/22/19 01:00 90 20 144/79 92 L 05/22/19 00:00 97.8 F 92 22 107/57 93 L 05/21/19 23:09 83 20 92 L 05/21/19 23:00 85 18 120/66 92 L 05/21/19 22:00 94 24 147/73 91 L 05/21/19 21:30 102 H 29 H 90 L 05/21/19 21:00 100 29 H 127/90 88 L 05/21/19 20:38 100 05/21/19 20:30 98 30 H 94 L 05/21/19 20:26 98 05/21/19 20:00 98.2 F 93 26 H 111/59 92 L 05/21/19 19:30 96 26 H 93 L 05/21/19 19:00 88 20 111/59 92 L 05/21/19 18:00 94 22 142/73 91 L 05/21/19 17:31 100 29 H 142/73 93 L 05/21/19 17:14 102 H 05/21/19 17:00 99.1 F 100 29 H 142/73 93 L 05/21/19 16:57 100 05/21/19 16:54 102 H 35 H 90 L 05/21/19 15:34 105 H 16 136/70 98 05/21/19 14:33 114 H 05/21/19 14:16 113 H 05/21/19 14:13 112 H 20 190/95 97 05/21/19 13:40 105 H 05/21/19 13:34 105 H 24 163/82 88 L 05/21/19 13:33 24 05/21/19 13:30 98.6 F 114 H 16 127/65 64 L Intake and Output 05/21/19 05/22/19 05/22/19 22:59 06:59 14:59 Intake Total 150 310 90 Output Total 855 560 325 Balance -705 250 -235 Intake: IV 130 240 90 0.9 100 60 60 Furosemide 100 mg In 30 80 30 Sodium Chloride 0.9% 90 ml @ 10 MG/HR 10 mls/hr IV .Q10H [facility] Rx#: [id number] Piperacillin-Tazobactam 3 0 100 .375 gm In Sodium Chloride 0.9% 100 ml @ 25 mls/hr IVPB Q12HR [facility] Rx #:[id number] Intake, IV Titration 20 70 Amount Furosemide 100 mg In 20 70 Sodium Chloride 0.9% 90 ml @ 10 MG/HR 10 mls/hr IV .Q10H [facility] Rx#: [id number] Output: Urine 855 560 325 Uretheral (Jalloh) 500 Other: Voiding Method Indwelling Catheter Indwelling Catheter Indwelling Catheter Weight 107.501 kg 104.8 kg GENERAL EXAM: Patient is alert and oriented and in moderate distress HEENT: Normocephalic. Normal reaction of pupils, equal size, normal range of extraocular motion. No erythema or exudates in the throat. NECK: No masses, no nuchal rigidity. CHEST: No chest wall deformity. LUNGS: Expiratory wheezes and rhonchi HEART: S1 and S2 normal. Distant heart sounds and difficult to assess for any murmurs ABDOMEN: No hepatosplenomegaly, normal bowel sounds, no guarding or rigidity. SKIN: No rashes CENTRAL NERVOUS SYSTEM: No focal deficits. EXTREMITIES: No cyanosis, clubbing or edema. Results 05/22/19 04:42 05/22/19 04:42 Cardiac Enzymes 05/21/19 05/21/19 05/22/19 Range/Units 13:54 13:54 04:42 AST 75 H 82 H (17-59) U/L Troponin I 2.170 H* (0.000-0.034) ng/mL Coagulation 05/21/19 Range/Units 14:29 PT 9.4 (9.0-12.0) sec APTT 26.7 (22.0-30.0) sec CBC 05/21/19 05/22/19 Range/Units 13:54 04:42 WBC 9.8 8.4 (3.8-10.6) k/uL RBC 4.14 L 3.88 L (4.30-5.90) m/uL Hgb 11.3 L 10.9 L (13.0-17.5) gm/dL Hct 34.6 L 34.3 L (39.0-53.0) % Plt Count 238 243 (150-450) k/uL Comprehensive Metabolic Panel 05/21/19 05/22/19 Range/Units 13:54 04:42 Sodium 132 L 131 L (137-145) mmol/L Potassium 3.4 L 4.0 (3.5-5.1) mmol/L Chloride 96 L 97 L (98-107) mmol/L Carbon Dioxide 19 L 14 L (22-30) mmol/L BUN 67 H 83 H (9-20) mg/dL Creatinine 3.94 H 4.60 H (0.66-1.25) mg/dL Glucose 182 H 333 H (74-99) mg/dL Calcium 6.7 L 6.5 L (8.4-10.2) mg/dL AST 75 H 82 H (17-59) U/L ALT 41 42 (4-49) U/L Alkaline Phosphatase 98 69 (38-126) U/L Total Protein 6.4 6.4 (6.3-8.2) g/dL Albumin 3.4 L 3.2 L (3.5-5.0) g/dL Current Medications Generic Name Dose Route Start Last Admin Trade Name Freq PRN Reason Stop Dose Admin Albuterol Sulfate 2.5 mg 05/21/19 16:00 Ventolin Nebulized INHALATION RT-Q2H PRN Shortness Of Breath Or Wheezing Albuterol/Ipratropium 3 ml 05/21/19 15:56 Duoneb 0.5 Mg-3 Mg/3 Ml Soln INHALATION RT-Q4H PRN Shortness Of Breath Or Wheezing Albuterol/Ipratropium 3 ml 05/21/19 16:00 05/22/19 08:48 Duoneb 0.5 Mg-3 Mg/3 Ml Soln INHALATION 3 ml RT-QID [facility] Administration Amlodipine Besylate 10 mg 05/22/19 09:00 Norvasc PO DAILY [facility] Aspirin 81 mg 05/22/19 09:00 Aspirin PO DAILY [facility] Clonidine 0.3 mg 05/21/19 21:00 05/21/19 21:15 Catapres PO 0.3 mg BID [facility] Administration Docusate Sodium 100 mg 05/22/19 08:39 Colace PO BID PRN Constipation Heparin Sodium (Porcine) 5,000 unit 05/22/19 00:00 05/22/19 00:29 Heparin SQ 5,000 unit Q8HR [facility] Administration Hydralazine HCl 100 mg 05/21/19 22:00 05/21/19 21:15 Apresoline PO 100 mg TID [facility] Administration Furosemide 100 mg/ Sodium 100 mls @ 10 mls/hr 05/21/19 16:30 05/22/19 00:43 Chloride IV 10 mg/hr .Q10H [facility] 10 mls/hr Administration 10 MG/HR Piperacillin Sod/Tazobactam 100 mls @ 25 mls/hr 05/21/19 21:00 05/21/19 21:16 Sod 3.375 gm/ Sodium Chloride IVPB 25 mls/hr Q12HR [facility] Administration Insulin Aspart 0 unit 05/21/19 21:00 05/22/19 06:45 Novolog SQ 5 unit ACHS [facility] Administration Protocol Losartan Potassium 100 mg 05/22/19 09:00 Cozaar PO DAILY [facility] Methylprednisolone Sodium Succinate 60 mg 05/21/19 18:00 05/22/19 06:45 Solu-Medrol IV 60 mg Q6HR [facility] Administration Oseltamivir Phosphate 30 mg 05/22/19 09:00 Tamiflu PO 05/25/19 09:01 Q24HR [facility] Pantoprazole Sodium 40 mg 05/21/19 21:00 05/21/19 21:16 Protonix IVP 40 mg BID [facility] Administration Intake and Output 05/21/19 05/22/19 05/22/19 22:59 06:59 14:59 Intake Total 150 310 90 Output Total 855 560 325 Balance -705 -250 -235 Intake: IV 130 240 90 0.9 100 60 60 Furosemide 100 mg In 30 80 30 Sodium Chloride 0.9% 90 ml @ 10 MG/HR 10 mls/hr IV .Q10H [facility] Rx#: [id number] Piperacillin-Tazobactam 3 0 100 .375 gm In Sodium Chloride 0.9% 100 ml @ 25 mls/hr IVPB Q12HR [facility] Rx #:[id number] Intake, IV Titration 20 70 Amount Furosemide 100 mg In 20 70 Sodium Chloride 0.9% 90 ml @ 10 MG/HR 10 mls/hr IV .Q10H [facility] Rx#: [id number] Output: Urine 855 560 325 Uretheral (Jalloh) 500 Other: Voiding Method Indwelling Catheter Indwelling Catheter Indwelling Catheter Weight 107.501 kg 104.8 kg 05/22/19 04:42 05/22/19 04:42 EKG Interpretations (text) Sinus rhythm Assessment and Plan (1) Essential hypertension Current Visit: Yes Status: Acute Code(s): I10 - ESSENTIAL (PRIMARY) HYPERTENSION SNOMED Code(s): 23100339 (2) Acute pulmonary edema Current Visit: Yes Status: Acute Code(s): J81.0 - ACUTE PULMONARY EDEMA SNOMED Code(s): 40433681 (3) Acute respiratory distress syndrome in adult Current Visit: Yes Status: Acute Code(s): J80 - ACUTE RESPIRATORY DISTRESS SYNDROME SNOMED Code(s): 53866776 (4) Influenza A Current Visit: Yes Status: Acute Code(s): J10.1 - FLU DUE TO OTH IDENT INFLUENZA VIRUS W OTH RESP MANIFEST SNOMED Code(s): 435231905 (5) Acute on chronic renal failure Current Visit: Yes Status: Acute Code(s): N17.9 - ACUTE KIDNEY FAILURE, UNSPECIFIED; N18.9 - CHRONIC KIDNEY DISEASE, UNSPECIFIED SNOMED Code(s): 300652130 Plan: Continue current medical therapy. I will get an echocardiogram to assess LV function and also follow-up troponin value. Nephrology consult is pending. Further recommendations depend upon the clinical course. Prognosis is guarded
[2019-05-22] MEDS: OSELTAMIVIR 60 MG/10 ML ORAL SYRINGE PO SCH (09:27)
[2019-05-22] MEDS: PIPERACILLIN-TAZOBACTAM 3.375 GM in SODIUM CHLORIDE 0.9% 100 ML IVPB SCH ×2 (09:27→21:38)
[2019-05-22] MEDS: PANTOPRAZOLE 40 MG/10 ML VIAL IVP SCH (09:27)
[2019-05-22] MEDS: amLODIPine 10 MG TAB PO SCH (09:28)
[2019-05-22] MEDS: cloNIDine HCL 0.1 MG TAB PO SCH ×2 (09:28→21:36)
[2019-05-22] MEDS: hydrALAZINE HCL 50 MG TAB PO SCH ×3 (09:28→21:36)
[2019-05-22] MEDS: ASPIRIN 81 MG PO SCH (09:28)
[2019-05-22] MEDS ORDERED: INSULIN REGULAR BOLUS (FROM DRIP BAG) IV PRN (09:44)
--- NOTE | 2019-05-22 09:54 | P.CNPUL ---
History of Present Illness Consult date: 05/22/19 Requesting physician: Cullen E Yvan Reason for consult: other (Acute hypoxic respiratory failure) Chief complaint: Shortness of breath and cough. 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 Patient presented to the ER with 1 week history of shortness of breath cough and wheezing. He was also complaining of few pillows orthopnea, paroxysmal nocturnal dyspnea, he had no fever no chills no hemoptysis no chest pain. No nausea no vomiting no abdominal pain no melena no hematemesis. Upon arrival, patient was tachycardic, hypertensive with a blood pressure of 190/95. Chest x- ray showed evidence of pulmonary edema. Labs showed no evidence of leukocytosis, his ABG on 40% FiO2 showed a pO2 of 64 pCO2 of 32, pH of 7.36, Low bicarb of 19, anion gap of 17, BUN of 67 and creatinine of 3.94, elevated troponin of 2.17, and elevated BNP of 6890. He also tested positive for influenza type A. Patient was admitted, placed on BiPAP, placed on bronchodilators, steroids, Lasix drip, Tamiflu, empiric antibiotics, and this consult was initiated. Patient is not in the ICU, responding well to diuresis, feeling better breathing easier, however he remains on BiPAP at IPAP of 16 EPAP of 6 FiO2 of 50%. O2 saturation is 94%. Repeat labs this morning showed a blood sugar of 333, BUN is 83 creatinine 4.60 bicarb is 14 and anion gap of 20. Review of Systems CONSTITUTIONAL: Denies weight loss, fever chills or malaise. HEENT: Denies any ear ache, sore throat, headache, blurred vision, dizziness. Denies any symptoms related to his sinuses. CARDIOVASCULAR: Denies any chest pain, no palpitations, however he has orthopnea and PND. PULMONARY: Cough, shortness of breath, cough is productive with yellow phlegm. No chest pain. GASTROINTESTINAL: Denies nausea vomiting abdominal pain melena or hematemesis.. NEUROLOGICAL: Denies headache blurred vision dizziness diplopia. HEMATOLOGICAL: No history of clotting bleeding or bruising GENITOURINARY: Denies any dysuria frequency urgency or hematuria. MUSCULOSKELETAL/RHEUMATOLOGICAL: Vague generalized aches, otherwise unremarkable. ENDOCRINE: Denies any heat or cold intolerance, patient has known history of diabetes. Psychiatric: Denies any symptoms of active depression. Past Medical History Past Medical History: COPD, Diabetes Mellitus, Hyperlipidemia, Hypertension, Sleep Apnea/CPAP/BIPAP Additional Past Medical History / Comment(s): callus removed 1rst digit left foot-prophylactic tx of antibiotic currently,uses cpap. diabetic retinopathy History of Any Multi-Drug Resistant Organisms: None Reported Past Surgical History: Joint Replacement Additional Past Surgical History / Comment(s): rt total hip Additional Past Anesthesia/Blood Transfusion Reaction / Comment(s): heartrate went very low in recovery room and admitted into icu for hip surgery at [facility]. Past Psychological History: No Psychological Hx Reported Smoking Status: Former smoker Past Alcohol Use History: None Reported Additional Past Alcohol Use History / Comment(s): quit smoking approx 2 010,smoked approx since age 13,<1ppd Past Drug Use History: None Reported - Past Family History Mother Family Medical History: No Reported History Sister(s) Family Medical History: Cancer Brother(s) Family Medical History: Cancer Medications and Allergies Home Medications Medication Instructions Recorded Confirmed Type Atorvastatin [Lipitor] 80 mg PO HS 11/03/14 05/01/18 History Budesonide-Formot 160-4.5 Mcg 2 puff INHALATION BID 11/03/14 05/01/18 History [Symbicort 160-4.5 Mcg Inhaler] Tiotropium [place] [Spiriva 2 puff INHALATION DAILY 11/03/14 05/01/18 History Respimat] metFORMIN HCL [Glucophage] 1,000 mg PO BID 11/03/14 05/01/18 History Albuterol Inhaler [Ventolin Hfa 1 - 2 puff INHALATION RT-Q6H PRN 04/11/18 05/01/18 History Inhaler] Albuterol Nebulized [Ventolin 2.5 mg INHALATION Q6H PRN 04/11/18 05/01/18 History Nebulized] Amoxicillin 250 mg PO Q8H 04/11/18 05/01/18 History Dorzolamide HCl/Pf [Dorzolamide 2% 1 drop BOTH EYES BID 04/11/18 05/01/18 Hist ory Eye Drop] Ergocalciferol [Vitamin D2] 50,000 unit PO Q7D 04/11/18 05/01/18 History Ferrous Sulfate [Iron] 325 mg PO DAILY 04/11/18 05/01/18 History Hydrochlorothiazide 25 mg PO DAILY 04/11/18 05/01/18 History Insulin NPH Hum/Reg Insulin Hm 57 unit SQ QAM 04/11/18 05/01/18 History [NovoLIN 70-30 100 UNIT/ML VIAL] Insuln Asp Prt/Insulin Aspart 56 unit SQ 1800 04/11/18 05/01/18 History [NovoLOG MIX 70-30 VIAL] Latanoprost [Xalatan 0.005%] 1 drop BOTH EYES HS 04/11/18 05/01/18 History Losartan Potassium [Cozaar] 100 mg PO DAILY 04/11/18 05/01/18 History Methocarbamol [Robaxin] 500 mg PO TID PRN 04/11/18 05/01/18 History Pregabalin [Lyrica] 100 mg PO TID 04/11/18 05/01/18 History amLODIPine BESYLATE 10 mg PO DAILY 04/11/18 05/01/18 History cloNIDine HCL [Catapres] 0.2 mg PO BID 04/11/18 05/01/18 History hydrALAZINE HCL [Apresoline] 100 mg PO TID 04/11/18 05/01/18 History Allergies Allergy/AdvReac Type Severity Reaction Status Date / Time clindamycin Allergy Anaphylaxis Verified 05/21/19 17:00 Physical Exam Vitals: Vital Signs Temp Pulse Resp BP Pulse Ox 05/22/19 09:03 94 05/22/19 09:00 93 30 H 125/64 97 05/22/19 08:48 89 05/22/19 08:00 97.9 F 81 29 H 134/78 95 05/22/19 07:00 87 59 H 117/74 94 L 05/22/19 06:00 88 27 H 150/78 94 L 05/22/19 05:00 92 22 130/70 94 L 05/22/19 04:00 98.1 F 86 19 113/67 94 L 05/22/19 03:00 85 22 131/70 93 L 05/22/19 02:00 90 24 132/62 93 L 05/22/19 01:00 90 20 144/79 92 L 05/22/19 00:00 97.8 F 92 22 107/57 93 L 05/21/19 23:09 83 20 92 L 05/21/19 23:00 85 18 120/66 92 L 05/21/19 22:00 94 24 147/73 91 L 05/21/19 21:30 102 H 29 H 90 L 05/21/19 21:00 100 29 H 127/90 88 L 05/21/19 20:38 100 05/21/19 20:30 98 30 H 94 L 05/21/19 20:26 98 05/21/19 20:00 98.2 F 93 26 H 111/59 92 L 05/21/19 19:30 96 26 H 93 L 05/21/19 19:00 88 20 111/59 92 L 05/21/19 18:00 94 22 142/73 91 L 05/21/19 17:31 100 29 H 142/73 93 L 05/21/19 17:14 102 H 05/21/19 17:00 99.1 F 100 29 H 142/73 93 L 05/21/19 16:57 100 05/21/19 16:54 102 H 35 H 90 L 05/21/19 15:34 105 H 16 136/70 98 05/21/19 14:33 114 H 05/21/19 14:16 113 H 05/21/19 14:13 112 H 20 190/95 97 05/21/19 13:40 105 H 05/21/19 13:34 105 H 24 163/82 88 L 05/21/19 13:33 24 05/21/19 13:30 98.6 F 114 H 16 127/65 64 L Intake and Output 05/21/19 05/22/19 05/22/19 22:59 06:59 14:59 Intake Total 150 310 90 Output Total 855 560 325 Balance -705 -250 -235 Intake: IV 130 240 90 0.9 100 60 60 Furosemide 100 mg In 30 80 30 Sodium Chloride 0.9% 90 ml @ 10 MG/HR 10 mls/hr IV .Q10H [facility] Rx#: [id number] Piperacillin-Tazobactam 3 0 100 .375 gm In Sodium Chloride 0.9% 100 ml @ 25 mls/hr IVPB Q12HR [facility] Rx #:[id number] Intake, IV Titration 20 70 Amount Furosemide 100 mg In 20 70 Sodium Chloride 0.9% 90 ml @ 10 MG/HR 10 mls/hr IV .Q10H [facility] Rx#: [id number] Output: Urine 855 560 325 Uretheral (Jalloh) 500 Other: Voiding Method Indwelling Catheter Indwelling Catheter Indwelling Catheter Weight 107.501 kg 104.8 kg Physical Exam: Revealed a 63-year-old male on BiPAP, obese, in no distress. Head: Atraumatic, normocephalic. HEENT:[Neck is supple.] [No neck masses.] [No thyromegaly.] [No JVD.] Moist mucous membranes. Chest: [Crackles and rhonchi and wheezes noted bilaterally. Symmetrical chest expansion noted..] Cardiac Exam: Normal S1 and S2, no S3 gallop, no murmur, Abdomen: Obese, [Soft, nontender, no megaly, no rebound, no guarding, normal bowel sounds.] Extremities: Trace of bipedal edema, no clubbing no cyanosis. Neurological Exam: Alert and oriented 3, no gross focal neurologic deficits. Skin: No rashes. Psychiatric: Normal mood affect and normal mental status examination. Results - Laboratory Findings CBC and BMP: 05/22/19 04:42 05/22/19 04:42 ABG ABG pH 7.36 (7.35-7.45) 05/21/19 16:34 ABG pCO2 32 mmHg (35-45) L 05/21/19 16:34 ABG pO2 64 mmHg (83-108) L 05/21/19 16:34 ABG O2 Saturation 90.4 % (94-97) L 05/21/19 16:34 PT/INR, D-dimer PT 9.4 sec (9.0-12.0) 05/21/19 14:29 INR 0.9 (<1.2) 05/21/19 14:29 Abnormal lab findings: Abnormal Labs 05/21/19 05/21/19 05/21/19 13:32 13:50 13:54 RBC 4.14 L Hgb 11.3 L Hct 34.6 L Neutrophils # 8.6 H Lymphocytes # 0.4 L ABG pCO2 ABG pO2 ABG HCO3 ABG O2 Saturation Sodium Potassium Chloride Carbon Dioxide BUN Creatinine Glucose POC Glucose (mg/dL) 187 H Calcium AST Troponin I Albumin Influenza Type A RNA Detected H 05/21/19 05/21/19 05/21/19 13:54 13:54 16:34 RBC Hgb Hct Neutrophils # Lymphocytes # ABG pCO2 32 L ABG pO2 64 L ABG HCO3 18 L ABG O2 Saturation 90.4 L Sodium 132 L Potassium 3.4 L Chloride 96 L Carbon Dioxide 19 L BUN 67 H Creatinine 3.94 H Glucose 182 H POC Glucose (mg/dL) Calcium 6.7 L AST 75 H Troponin I 2.170 H* Albumin 3.4 L Influenza Type A RNA 05/21/19 05/21/19 05/22/19 16:53 20:30 04:42 RBC 3.88 L Hgb 10.9 L Hct 34.3 L Neutrophils # Lymphocytes # 0.4 L ABG pCO2 ABG pO2 ABG HCO3 ABG O2 Saturation Sodium Potassium Chloride Carbon Dioxide BUN Creatinine Glucose POC Glucose (mg/dL) 252 H 321 H Calcium AST Troponin I Albumin Influenza Type A RNA 05/22/19 05/22/19 05/22/19 04:42 04:42 06:41 RBC Hgb Hct Neutrophils # Lymphocytes # ABG pCO2 ABG pO2 ABG HCO3 ABG O2 Saturation Sodium 131 L Potassium Chloride 97 L Carbon Dioxide 14 L BUN 83 H Creatinine 4.60 H Glucose 333 H POC Glucose (mg/dL) 320 H Calcium 6.5 L AST 82 H Troponin I 1.680 H* Albumin 3.2 L Influenza Type A RNA - Diagnostic Findings Chest x-ray: image reviewed (As noted in HPI.) Assessment and Plan Assessment: Impression: Acute hypoxic respiratory failure secondary to acute congestive heart failure, possibly systolic in nature however echocardiogram is pending. Hypertensive urgency, patient was initially started on nitroglycerin drip, presently on his usual blood pressure medications. Acute influenza a infection. Patient is now on Tamiflu. Acute exacerbation of COPD, continue bronchodilators and steroids. Possible underlying pneumonia, hence the patient will remain on empiric antibiotics. Unless we noticed a significant improvement on the chest x-ray wi th diuretics. Clearly the findings on the chest x-ray are mostly findings of chf. Chronic kidney disease stage III Type 2 diabetes, poorly controlled associated with diabetic nephropathy, previously diagnosed with kidney biopsy. Hypertensive nephrosclerosis and diabetic nephropathy Dyslipidemia Obstructive sleep apnea syndrome maintained normally on CPAP at home. Acute anion gap metabolic acidosis, secondary to renal failure, and also secondary to poorly controlled blood sugar, and could also be related to metformin. And possible sepsis. Primary source is unclear at this point. Acute on chronic kidney injury. Recommendation: Continue Lasix drip, I have cut down the dose from 10 mg per hour to 5 mg per hour. Continue bronchodilators and steroids. Continue Tamiflu. Continue empiric antibiotics for the time being until cultures become available. Continue insulin drip and titrate accordingly. Continue to control blood pressure patient was restarted on his blood pressure medication. Resume home meds except continue to hold metformin. Continue BiPAP and oxygen titrate accordingly. Added sodium bicarb drip since the patient is developing worsening metabolic acidosis since admission. Nephrology consultation to evaluate his acute on chronic kidney injury. GI and DVT prophylaxis. We'll continue to follow. Prognosis is guarded. Patient will remain in the ICU for now. Time with Patient: Greater than 30
--- NOTE | 2019-05-22 10:09 | P.PN ---
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 to presents because of worsening dyspnea of one week duration associated with cough and white phlegm especially when he takes his inhaler. Associated with o rthopnea and paroxysmal nocturnal dyspnea but no chest pain. He denies abdominal pain, no headache, no vomiting, no change in urine or bowel habits. No fever vitals on admission showing tachycardia and high blood pressure 190/95. He was immediately placed on BiPAP. Labs showingunremarkable CBC and INR, sodium 132, potassium 3.4, creatinine is 3.9. Lactic acid 1.5, AST 75 and ALT 41.. Chest x-ray showing fluid overload. Patient was started on nitroglycerin drip and given 1 dose of Lasix 80 mg. further work up came back positive for influenza A and pt was started on Tamiflu,, troponin is elevated at 2.17, pt is admitted to ICU, with nitro drip and lasix drip, c/w BiPAP , consult critical care team, c/w asprin ,and steroid and bronchodilators and heparin prognosis is guarded given multiple and complex medical problems 05/22/2019 Patient remains in the ICU, he is currently on BiPAP patients with FiO2 -40%, which is lowered compared to last night. Patient is breathing is better and he says more than 50% improved. He still denies chest pain, no headache. No nausea vomiting. No sweating. Is still tachypneic with a preserved rate 30, other vitals are stable. CBC is stable. Sodium stable at 131, creatinine is worsened and 4.6. Renal ultrasound was unremarkable. His troponin is trending down from 2.1 down to 1.6. He remains on droplet isolation for positive for influenza A. Chest x-ray, per radiology showing some improvement in the right side with patchy consolidation of the left lower side. Chest x-ray reviewed by me showing significant improvement on radiation especially in the right side. Patient remains on Lasix drip at 10, no nitro drip. He remains on BiPAP machine. Cardiology input is appreciated, they recommended echocardiogram. Patient currently remains on Tamiflu, and steroids. Continue with aspirin. Nephrology consult is called. Review of systems CONSTITUTIONAL: No fever, no malaise, no fatigue. HEENT: No recent visual problems or hearing problems. Denied any sore throat. CARDIOVASCULAR: no palpitations, no syncope. PULMONARY: no hemoptysis. GASTROINTESTINAL: No diarrhea, no nausea, no vomiting, no abdominal pain. Normoactive bowel sounds. NEUROLOGICAL: No headaches, no weakness, no numbness. HEMATOLOGICAL: Denies any bleeding or petechiae. GENITOURINARY: Denies any burning micturition, frequency, or urgency. MUSCULOSKELETAL/RHEUMATOLOGICAL: Denies any joint pain, swelling, or any muscle pain. ENDOCRINE: Denies any polyuria or polydipsia. Active Medications Generic Name Dose Route Start Last Admin Trade Name Freq PRN Reason Stop Dose Admin Albuterol Sulfate 2.5 mg 05/21/19 16:00 Ventolin Nebulized INHALATION RT-Q2H PRN Shortness Of Breath Or Wheezing Albuterol/Ipratropium 3 ml 05/21/19 15:56 Duoneb 0.5 Mg-3 Mg/3 Ml Soln INHALATION RT-Q4H PRN Shortness Of Breath Or Wheezing Albuterol/Ipratropium 3 ml 05/21/19 16:00 05/22/19 08:48 Duoneb 0.5 Mg-3 Mg/3 Ml Soln INHALATION 3 ml RT-QID [facility] Administration Amlodipine Besylate 10 mg 05/22/19 09:00 05/22/19 09:28 Norvasc PO 10 mg DAILY [facility] Administration Aspirin 81 mg 05/22/19 09:00 05/22/19 09:28 Aspirin PO 81 mg DAILY [facility] Administration Clonidine 0.3 mg 05/21/19 21:00 05/22/19 09:28 Catapres PO 0.3 mg BID [facility] Administration Docusate Sodium 100 mg 05/22/19 08:39 Colace PO BID PRN Constipation Heparin Sodium (Porcine) 5,000 unit 05/22/19 00:00 05/22/19 09:27 Heparin SQ 5,000 unit Q8HR [facility] Administration Hydralazine HCl 100 mg 05/21/19 22:00 05/22/19 09:28 Apresoline PO 100 mg TID [facility] Administration Furosemide 100 mg/ Sodium 100 mls @ 5 mls/hr 05/21/19 16:30 05/22/19 00:43 Chloride IV 10 mg/hr .Q20H [facility] 10 mls/hr Administration 5 MG/HR Piperacillin Sod/Tazobactam 100 mls @ 25 mls/hr 05/21/19 21:00 05/22/19 09:27 Sod 3.375 gm/ Sodium Chloride IVPB 25 mls/hr Q12HR [facility] Administration Sodium Bicarbonate 150 ml/ 1,150 mls @ 50 mls/hr 05/22/19 11:00 Dextrose/Water IV .Q23H [facility] Insulin Human Regular 100 unit 101 mls @ 0 mls/hr 05/22/19 10:00 / Sodium Chloride IV .Q0M [facility] Protocol Per Protocol Insulin Human Regular 10.5 unit 05/22/19 09:44 Humulin R Bolus From Bag 0.1 unit/kg (10.5 unit) 05/22/19 12:44 IV ONCE PRN Blood Sugar - High Methylprednisolone Sodium Succinate 40 mg 05/22/19 16:00 Solu-Medrol IV Q8HR [facility] Oseltamivir Phosphate 30 mg 05/22/19 09:00 05/22/19 09:27 Tamiflu PO 05/25/19 09:01 30 mg Q24HR [facility] Administration Pantoprazole Sodium 40 mg 05/21/19 21:00 05/22/19 09:27 Protonix IVP 40 mg BID [facility] Administration Objective - Vital Signs Vital signs: Vital Signs Temp 97.9 F 05/22/19 08:00 Pulse 94 05/22/19 09:03 Resp 30 H 05/22/19 09:00 BP 125/64 05/22/19 09:00 Pulse Ox 97 05/22/19 09:00 Intake & Output 05/21/19 05/22/19 05/22/19 18:59 06:59 18:59 Intake Total 50 410 120 Output Total 600 815 410 Balance -550 -405 -290 Weight 107.501 kg 104.8 kg Intake: IV 40 330 120 0.9 40 120 80 Furosemide 100 mg In 110 40 Sodium Chloride 0.9% 90 ml @ 5 MG/HR 5 mls/hr IV .Q20H [facility] Rx#:[id number] Piperacillin-Tazobactam 3 100 .375 gm In Sodium Chloride 0.9% 100 ml @ 25 mls/hr IVPB Q12HR [facility] Rx #:[id number] Intake, IV Titration 10 80 Amount Furosemide 100 mg In 10 80 Sodium Chloride 0.9% 90 ml @ 5 MG/HR 5 mls/hr IV .Q20H [facility] Rx#:[id number] Output: Urine 600 815 410 Uretheral (Jalloh) 500 Other: Voiding Method Indwelling Catheter Indwelling Catheter Indwelling Catheter - Exam GENERAL: The patient is alert and oriented x3, not in any acute distress. Well developed, well nourished. HEENT: Pupils are round and equally reacting to light. EOMI. No scleral icterus. No conjunctival pallor. Normocephalic, atraumatic. No pharyngeal erythema. No thyromegaly. CARDIOVASCULAR: S1 and S2 present. No murmurs, rubs, or gallops. -PULMONARY: Chest is clear to auscultation, bilateral scattered wheezing with bilateral coarse crepitation ABDOMEN: Soft, nontender, nondistended, normoactive bowel sounds. No palpable organomegaly. MUSCULOSKELETAL: No joint swelling or deformity. -EXTREMITIES: No cyanosis, clubbing,. Bilateral leg edema, pitting NEUROLOGICAL: Gross neurological examination did not reveal any focal deficits. SKIN: No rashes. No petechiae - Labs CBC & Chem 7: 05/22/19 04:42 05/22/19 04:42 Labs: Abnormal Lab Results - Last 24 Hours (Table) 05/21/19 05/21/19 05/21/19 Range/Units 13:32 13:50 13:54 RBC 4.14 L (4.30-5.90) m/uL Hgb 11.3 L (13.0-17.5) gm/dL Hct 34.6 L (39.0-53.0) % Neutrophils # 8.6 H (1.3-7.7) k/uL Lymphocytes # 0.4 L (1.0-4.8) k/uL ABG pCO2 (35-45) mmHg ABG pO2 (83-108) mmHg ABG HCO3 (21-25) mmol/L ABG O2 Saturation (94-97) % Sodium (137-145) mmol/L Potassium (3.5-5.1) mmol/L Chloride (98-107) mmol/L Carbon Dioxide (22-30) mmol/L BUN (9-20) mg/dL Creatinine (0.66-1.25) mg/dL Glucose (74-99) mg/dL POC Glucose (mg/dL) 187 H (75-99) mg/dL Calcium (8.4-10.2) mg/dL AST (17-59) U/L Troponin I (0.000-0.034) ng/mL Albumin (3.5-5.0) g/dL Influenza Type A RNA Detected H (Not Detectd) 05/21/19 05/21/19 05/21/19 Range/Units 13:54 13:54 16:34 RBC (4.30-5.90) m/uL Hgb (13.0-17.5) gm/dL Hct (39.0-53.0) % Neutrophils # (1.3-7.7) k/uL Lymphocytes # (1.0-4.8) k/uL ABG pCO2 32 L (35-45) mmHg ABG pO2 64 L (83-108) mmHg ABG HCO3 18 L (21-25) mmol/L ABG O2 Saturation 90.4 L (94-97) % Sodium 132 L (137-145) mmol/L Potassium 3.4 L (3.5-5.1) mmol/L Chloride 96 L (98-107) mmol/L Carbon Dioxide 19 L (22-30) mmol/L BUN 67 H (9-20) mg/dL Creatinine 3.94 H (0.66-1.25) mg/dL Glucose 182 H (74-99) mg/dL POC Glucose (mg/dL) (75-99) mg/dL Calcium 6.7 L (8.4-10.2) mg/dL AST 75 H (17-59) U/L Troponin I 2.170 H* (0.000-0.034) ng/mL Albumin 3.4 L (3.5-5.0) g/dL Influenza Type A RNA (Not Detectd) 05/21/19 05/21/19 05/22/19 Range/Units 16:53 20:30 04:42 RBC 3.88 L (4.30-5.90) m/uL Hgb 10.9 L (13.0-17.5) gm/dL Hct 34.3 L (39.0-53.0) % Neutrophils # (1.3-7.7) k/uL Lymphocytes # 0.4 L (1.0-4.8) k/uL ABG pCO2 (35-45) mmHg ABG pO2 (83-108) mmHg ABG HCO3 (21-25) mmol/L ABG O2 Saturation (94-97) % Sodium (137-145) mmol/L Potassium (3.5-5.1) mmol/L Chloride (98-107) mmol/L Carbon Dioxide (22-30) mmol/L BUN (9-20) mg/dL Creatinine (0.66-1.25) mg/dL Glucose (74-99) mg/dL POC Glucose (mg/dL) 252 H 321 H (75-99) mg/dL Calcium (8.4-10.2) mg/dL AST (17-59) U/L Troponin I (0.000-0.034) ng/mL Albumin (3.5-5.0) g/dL Influenza Type A RNA (Not Detectd) 05/22/19 05/22/19 05/22/19 Range/Units 04:42 04:42 06:41 RBC (4.30-5.90) m/uL Hgb (13.0-17.5) gm/dL Hct (39.0-53.0) % Neutrophils # (1.3-7.7) k/uL Lymphocytes # (1.0-4.8) k/uL ABG pCO2 (35-45) mmHg ABG pO2 (83-108) mmHg ABG HCO3 (21-25) mmol/L ABG O2 Saturation (94-97) % Sodium 131 L (137-145) mmol/L Potassium (3.5-5.1) mmol/L Chloride 97 L (98-107) mmol/L Carbon Dioxide 14 L (22-30) mmol/L BUN 83 H (9-20) mg/dL Creatinine 4.60 H (0.66-1.25) mg/dL Glucose 333 H (74-99) mg/dL POC Glucose (mg/dL) 320 H (75-99) mg/dL Calcium 6.5 L (8.4-10.2) mg/dL AST 82 H (17-59) U/L Troponin I 1.680 H* (0.000-0.034) ng/mL Albumin 3.2 L (3.5-5.0) g/dL Influenza Type A RNA (Not Detectd) Assessment and Plan Assessment: acute pulmonary edema with acute congestive heart failure Hypertensive urgency, improved Influenza A infection possible acute COPD exacerbation acute hypoxic respiratory failure Acute kidney injury on chronic kidney disease CKD, stage III hypokalemia diabetes mellitus Hypertension Hyperlipidemia Sleep apnea on CPAP/BiPAP Plan: this is a pleasant 63 years old male who presents with acute renal failure and respiratory failure from fluid congestion of the lungs. Continue with BiPAP. Consult die attacher. Continue with Lasix. Check echocardiogram. cardiology consult. Continue with BiPAP as needed, continue with steroids, continue with antibiotics. Continue with aspirin. Continue with Atripla to isolation Labs and medication were reviewed.. Continue same treatment. Continue with symptomatic treatment. Resume home medication. Monitor lytes and vitals. DVT and GI prophylaxis. Further recommendations of the clinical course of the patient DVT prophylaxis: Subcutaneous heparin GI Prophylaxis: Pepcid PT/OT: Pending Prognosis is guarded
[2019-05-22 10:34] LABS: Glucose,Whole Blood 329 mg/dL (75-99)
[2019-05-22] MEDS: INSULIN REGULAR 100 UNIT in SODIUM CHLORIDE 0.9% 100 ML IV SCH ×3 (10:41→23:44)
[2019-05-22] MEDS ORDERED: DEXTROSE 5% IN WATER 1,000 ML with SODIUM BICARB (1 MEQ/ML) 150 ML IV SCH (11:00)
[2019-05-22 11:16] LABS: Glucose,Whole Blood 338 mg/dL (75-99)
[2019-05-22 11:56] LABS: Glucose,Whole Blood 312 mg/dL (75-99)
[2019-05-22 13:04] LABS: Amorphous Sediment,Urine Rare /hpf; Appearance,Urine Cloudy (Clear); Bacteria,Urine Rare /hpf; Bilirubin,Urine Negative (Negative); Blood,Urine Small (Negative); Color,Urine Light Yellow; Glucose,Urine (UA) 1+ (Negative); Hyaline Casts,Urine 1 /lpf (0-2); Ketones,Urine Negative (Negative); Leukocyte Esterase,Urine Negative (Negative); Mucus,Urine Rare /hpf; Nitrite,Urine Negative (Negative); PH, Urine 5.5 (5.0-8.0); Protein,Urine 2+ (Negative); RBC,Urine 10 /hpf (0-5); Specific Gravity,Urine 1.008 (1.001-1.035); Squamous Epithelial Cell,Urine <1 /hpf (0-4); Urobilinogen,Urine <2.0 mg/dL (<2.0); WBC,Urine 4 /hpf (0-5)
[2019-05-22 13:13] LABS: Glucose,Whole Blood 263 mg/dL (75-99)
[2019-05-22 14:11] LABS: Glucose,Whole Blood 264 mg/dL (75-99)
--- NOTE | 2019-05-22 14:57 | CONS ---
CONSULTATION REASON FOR CONSULT: Renal failure. HISTORY OF PRESENT ILLNESS: Patient is a 63-year-old male with history of chronic kidney disease, being followed as outpatient, NKF stage 3B with baseline creatinine about 1.5-1.6 mg/dL secondary to diabetic nephropathy and nephrosclerosis. The patient was admitted to the hospital with complaints of shortness of breath. He tested positive for influenza A. The patient is also maintained on BiPAP. Chest x-ray shows evidence of CHF as well. Currently patient is on Lasix drip. He has had good urine output, about 6200 mL an hour. Chest x-ray shows some improvement. Serum creatinine was 3.9 on admission. It has gone up to 4.6. Blood pressure has not been significantly low. Patient is maintained on Cozaar. PAST MEDICAL HISTORY: Hypertension, diabetes, CKD stage 3B, COPD, obstructive sleep apnea. PAST SURGICAL HISTORY: Removal of callus on the foot, arthroplasty of the right. SOCIAL HISTORY: Patient is a former smoker. No history of drug abuse or alcohol abuse. MEDICATIONS: Medications at home prior to admission include Lipitor, Glucophage, vitamin D, iron, insulin, hydrochlorothiazide, Cozaar, Robaxin, Lyrica, amlodipine, clonidine, hydralazine. ALLERGIES: Include an antibiotic, name is not known. EXAMINATION: Patient is currently on BiPAP. He is not in any acute distress. Blood pressure was 125/64, heart rate 93 per minute, he is afebrile. Examination of the heart S1, S2. Examination of the lungs, decreased breath sounds at bases, basal crackles are heard. Abdomen is soft, nontender, obese. Examination of lower extremities shows trace edema. SCRAP METAL COLLECTOR exam is grossly intact. LAB: Show sodium 131, potassium 4.0, chloride 97, CO2 is 14, BUN 83, creatinine 4.6, hemoglobin 10.9 g/dL. ASSESSMENT: 1. Acute kidney injury secondary to flu as well as acute tubular necrosis currently as well as cardiorenal currently nonoliguric. I will continue with the Lasix drip and changed to IV push Lasix later on this evening once the respiratory status improves. Chest x-ray is significantly improved. I will also DC the Cozaar. 2. Chronic kidney disease, stage 3B. Baseline creatinine 1.5-1.6 mg/dL secondary to diabetic nephropathy and nephrosclerosis. 3. Congestive heart failure volume overload maintained on Lasix drip, currently improving. The previous echocardiogram is not available. Cardiology has evaluated the patient. 4. Influenza A maintained on Tamiflu. 5. Metabolic acidosis, anion gap secondary to renal failure add oral sodium bicarb. If it is worse, I will add a small amount of IV bicarb. PLAN: Continue with Lasix drip until later on this evening. We can switch to IV push Lasix then. Discontinue Cozaar. Add oral sodium bicarb. Repeat labs in a.m. Check urinalysis. Follow up on the troponins. Thank you for this consultation. Will continue to follow the patient with you during his hospitalization. MMODL / IJN: [id number] /
[2019-05-22] MEDS: methylPREDNISolone SOD SUCCI 40 MG/ML 1 ML VIAL IV SCH (15:02)
[2019-05-22 15:07] LABS: Glucose,Whole Blood 249 mg/dL (75-99)
[2019-05-22 16:36] LABS: Glucose,Whole Blood 242 mg/dL (75-99)
[2019-05-22 18:05] LABS: Glucose,Whole Blood 282 mg/dL (75-99)
[2019-05-22] MEDS: PANTOPRAZOLE 40 MG TABLET PO SCH (18:26)
[2019-05-22 19:12] LABS: Glucose,Whole Blood 285 mg/dL (75-99)
[2019-05-22 20:11] LABS: Glucose,Whole Blood 281 mg/dL (75-99)
[2019-05-22] MEDS ORDERED: MORPHINE SULFATE 2 MG/ML SYRINGE IVP STA (20:32)
[2019-05-22] MEDS ORDERED: FUROSEMIDE 100 MG in SODIUM CHLORIDE 0.9% 90 ML IV SCH (20:45)
[2019-05-22 20:53] LABS: Glucose,Whole Blood 263 mg/dL (75-99)
[2019-05-22 22:12] LABS: Glucose,Whole Blood 225 mg/dL (75-99)
[2019-05-22 23:09] LABS: Glucose,Whole Blood 213 mg/dL (75-99)
[2019-05-23] MEDS: methylPREDNISolone SOD SUCCI 40 MG/ML 1 ML VIAL IV SCH ×4 (00:03→23:24)
[2019-05-23] MEDS: HEPARIN SODIUM,PORCINE 5,000 UNIT/ML 1 ML VIAL SQ SCH ×4 (00:03→23:24)
[2019-05-23 00:07] LABS: Glucose,Whole Blood 189 mg/dL (75-99)
[2019-05-23 01:04] LABS: Glucose,Whole Blood 161 mg/dL (75-99)
[2019-05-23 02:01] LABS: Glucose,Whole Blood 116 mg/dL (75-99)
[2019-05-23 03:02] LABS: Glucose,Whole Blood 123 mg/dL (75-99)
[2019-05-23 04:03] LABS: Glucose,Whole Blood 205 mg/dL (75-99)
[2019-05-23 05:02] LABS: Glucose,Whole Blood 207 mg/dL (75-99)
[2019-05-23 06:00] LABS: Basophils % (A) 0 %; Eosinophils % (A) 0 %; HCT 32.4 % (39.0-53.0); HGB 10.9 gm/dL (13.0-17.5); Lymphocytes # (A) 0.3 k/uL (1.0-4.8); Lymphocytes % (A) 3 %; MCH 28.3 pg (25.0-35.0); MCHC 33.8 g/dL (31.0-37.0); MCV 83.8 fL (80.0-100.0); Mean Platelet Volume 7.3; Monocytes # (A) 0.4 k/uL (0-1.0); Monocytes % (A) 3 %; Neutrophils # (A) 10.8 k/uL (1.3-7.7); Neutrophils % (A) 93 %; Platelet Count 307 k/uL (150-450); RBC 3.87 m/uL (4.30-5.90); RDW 13.6 % (11.5-15.5); WBC 11.6 k/uL (3.8-10.6)
[2019-05-23 06:05] LABS: Glucose,Whole Blood 155 mg/dL (75-99)
[2019-05-23] MEDS: PANTOPRAZOLE 40 MG TABLET PO SCH ×2 (06:22→17:25)
[2019-05-23 06:25] LABS: Magnesium 2.2 mg/dL (1.6-2.3); Total Bilirubin 0.5 mg/dL (0.2-1.3); Total Protein 5.8 g/dL (6.3-8.2)
[2019-05-23 06:50] LABS: Potassium 2.6 mmol/L (3.5-5.1)
[2019-05-23 06:51] LABS: Calcium 6.2 mg/dL (8.4-10.2)
[2019-05-23] MEDS: IPRATROPIUM-ALBUTEROL 3 ML NEB INHALATION SCH ×4 (06:58→20:33)
[2019-05-23 07:08] LABS: Glucose,Whole Blood 155 mg/dL (75-99)
[2019-05-23] MEDS ORDERED: POTASSIUM CHLORIDE ER 20 MEQ TAB.ER PO ONE ×2 (07:30→08:30)
--- NOTE | 2019-05-23 07:53 | XR ---
EXAMINATION TYPE: XR chest 1V DATE OF EXAM: 05/23/2019 COMPARISON: Prior chest x-ray 05/22/2019 HISTORY: Abnormal chest x-ray shortness of breath and follow-up TECHNIQUE: Single frontal view of the chest is obtained. FINDINGS: Airspace disease persists similar to prior exam bilaterally. Patient is rotated. No eviden t pneumothorax or pleural effusion. Heart size is stable. IMPRESSION: Correlate for pneumonia, edema, follow-up recommended.
[2019-05-23] MEDS: cloNIDine HCL 0.1 MG TAB PO SCH ×2 (08:09→21:02)
[2019-05-23] MEDS: ASPIRIN 81 MG PO SCH (08:10)
[2019-05-23] MEDS: amLODIPine 10 MG TAB PO SCH (08:10)
[2019-05-23] MEDS: hydrALAZINE HCL 50 MG TAB PO SCH ×3 (08:10→21:02)
[2019-05-23] MEDS: PIPERACILLIN-TAZOBACTAM 3.375 GM in SODIUM CHLORIDE 0.9% 100 ML IVPB SCH ×2 (08:11→21:22)
[2019-05-23 08:22] LABS: Glucose,Whole Blood 112 mg/dL (75-99)
[2019-05-23] MEDS: OSELTAMIVIR 60 MG/10 ML ORAL SYRINGE PO SCH (08:39)
--- NOTE | 2019-05-23 09:35 | P.PN ---
Subjective Progress Note Date: 05/23/19 This 63-year-old gentleman who was admitted to the hospital with increasing shortness of breath and pulmonary infiltrates and possible edema. Patient has been treated with antibiotics and also IV Lasix. Patient also has chronic renal failure. Patient has diuresed well and feeling slightly better. A chest x-ray still shows right upper lobe infiltrate suggestive of possible pneumonia. His creatinine is up and his potassium is low. I'm going to stop the Lasix at this time, which can be resumed if necessary. Echo Cardigan was pending. Overall there seemed to be improvement. We'll continue current medical therapy. Nephrology is also following patient regarding his renal failure Objective - Vital Signs Vital signs: Vital Signs Temp 98.2 F 05/23/19 08:00 Pulse 85 05/23/19 09:00 Resp 19 05/23/19 09:00 BP 145/84 05/23/19 09:00 Pulse Ox 93 L 05/23/19 09:00 Intake & Output 05/22/19 05/23/19 05/23/19 18:59 06:59 18:59 Intake Total 287.978 6659.109 300.014 Output Total 820 820 350 Balance -261.333 204.109 -49.986 Weight 105.1 kg Intake: IV 320 865 275 0.9 240 160 60 Dextrose 5% in Water 1, 550 150 000 ml @ 50 mls/hr IV . Q23H [facility]HAWN with Sodium Bicarb (1 Meq/ml) 150 ml Rx#:[id number] Furosemide 100 mg In 80 Sodium Chloride 0.9% 90 ml @ 5 MG/HR 5 mls/hr IV .Q20H [facility] Rx#:[id number] Furosemide 100 mg In 55 15 Sodium Chloride 0.9% 90 ml @ 5 MG/HR 5 mls/hr IV .Q20H [facility] Rx#:[id number] Piperacillin-Tazobactam 3 100 50 .375 gm In Sodium Chloride 0.9% 100 ml @ 25 mls/hr IVPB Q12HR [facility] Rx #:[id number] Intake, IV Titration 238.667 159.109 25.014 Amount Furosemide 100 mg In 137.667 Sodium Chloride 0.9% 90 ml @ 5 MG/HR 5 mls/hr IV .Q20H [facility] Rx#:[id number] Insulin Regular 100 unit 101.000 159.109 25.014 In Sodium Chloride 0.9% 100 ml @ Per Protocol IV .Q0M [facility] Rx#:[id number] Output: Urine 820 820 350 Other: Voiding Method Indwelling Catheter Indwelling Catheter Indwelling Catheter - Exam GENERAL EXAM: Patient is alert and oriented and doesn't appear to be in any acute distress HEENT: Normocephalic. Normal reaction of pupils, equal size, normal range of extraocular motion. No erythema or exudates in the throat. NECK: No masses, no nuchal rigidity. CHEST: No chest wall deformity. LUNGS: Expiratory wheezes and rhonchi HEART: S1 and S2 normal with no audible mumurs or gallops. Regular rhythm, femorals equal on both sides.. ABDOMEN: No hepatosplenomegaly, normal bowel sounds, no guarding or rigidity. SKIN: No rashes CENTRAL NERVOUS SYSTEM: No focal deficits. EXTREMITIES: No cyanosis, clubbing or edema. - Labs CBC & Chem 7: 05/23/19 04:53 05/23/19 04:53 Labs: Abnormal Lab Results - Last 24 Hours (Table) 05/22/19 05/22/19 05/22/19 Range/Units 10:32 10:37 11:14 WBC (3.8-10.6) k/uL RBC (4.30-5.90) m/uL Hgb (13.0-17.5) gm/dL Hct (39.0-53.0) % Neutrophils # (1.3-7.7) k/uL Lymphocytes # (1.0-4.8) k/uL Potassium (3.5-5.1) mmol/L Carbon Dioxide (22-30) mmol/L BUN (9-20) mg/dL Creatinine (0.66-1.25) mg/dL Glucose (74-99) mg/dL POC Glucose (mg/dL) 329 H 338 H (75-99) mg/dL Calcium (8.4-10.2) mg/dL Troponin I (0.000-0.034) ng/mL Total Protein (6.3-8.2) g/dL Albumin (3.5-5.0) g/dL Urine Protein 2+ H (Negative) Urine Glucose (UA) 1+ H (Negative) Urine Blood Small H (Negative) Urine RBC 10 H (0-5) /hpf Amorphous Sediment Rare H (None) /hpf Urine Bacteria Rare H (None) /hpf Urine Mucus Rare H (None) /hpf 05/22/19 05/22/19 05/22/19 Range/Units 11:55 13:02 13:47 WBC (3.8-10.6) k/uL RBC (4.30-5.90) m/uL Hgb (13.0-17.5) gm/dL Hct (39.0-53.0) % Neutrophils # (1.3-7.7) k/uL Lymphocytes # (1.0-4.8) k/uL Potassium (3.5-5.1) mmol/L Carbon Dioxide (22-30) mmol/L BUN (9-20) mg/dL Creatinine (0.66-1.25) mg/dL Glucose (74-99) mg/dL POC Glucose (mg/dL) 312 H 263 H (75-99) mg/dL Calcium (8.4-10.2) mg/dL Troponin I 1.270 H* (0.000-0.034) ng/mL Total Protein (6.3-8.2) g/dL Albumin (3.5-5.0) g/dL Urine Protein (Negative) Urine Glucose (UA) (Negative) Urine Blood (Negative) Urine RBC (0-5) /hpf Amorphous Sediment (None) /hpf Urine Bacteria (None) /hpf Urine Mucus (None) /hpf 05/22/19 05/22/19 05/22/19 Range/Units 14:08 14:55 16:35 WBC (3.8-10.6) k/uL RBC (4.30-5.90) m/uL Hgb (13.0-17.5) gm/dL Hct (39.0-53.0) % Neutrophils # (1.3-7.7) k/uL Lymphocytes # (1.0-4.8) k/uL Potassium (3.5-5.1) mmol/L Carbon Dioxide (22-30) mmol/L BUN (9-20) mg/dL Creatinine (0.66-1.25) mg/dL Glucose (74-99) mg/dL POC Glucose (mg/dL) 264 H 249 H 242 H (75-99) mg/dL Calcium (8.4-10.2) mg/dL Troponin I (0.000-0.034) ng/mL Total Protein (6.3-8.2) g/dL Albumin (3.5-5.0) g/dL Urine Protein (Negative) Urine Glucose (UA) (Negative) Urine Blood (Negative) Urine RBC (0-5) /hpf Amorphous Sediment (None) /hpf Urine Bacteria (None) /hpf Urine Mucus (None) /hpf 05/22/19 05/22/19 05/22/19 Range/Units 18:04 19:01 20:09 WBC (3.8-10.6) k/uL RBC (4.30-5.90) m/uL Hgb (13.0-17.5) gm/dL Hct (39.0-53.0) % Neutrophils # (1.3-7.7) k/uL Lymphocytes # (1.0-4.8) k/uL Potassium (3.5-5.1) mmol/L Carbon Dioxide (22-30) mmol/L BUN (9-20) mg/dL Creatinine (0.66-1.25) mg/dL Glucose (74-99) mg/dL POC Glucose (mg/dL) 282 H 285 H 281 H (75-99) mg/dL Calcium (8.4-10.2) mg/dL Troponin I (0.000-0.034) ng/mL Total Protein (6.3-8.2) g/dL Albumin (3.5-5.0) g/dL Urine Protein (Negative) Urine Glucose (UA) (Negative) Urine Blood (Negative) Urine RBC (0-5) /hpf Amorphous Sediment (None) /hpf Urine Bacteria (None) /hpf Urine Mucus (None) /hpf 05/22/19 05/22/19 05/22/19 Range/Units 20:52 22:10 23:08 WBC (3.8-10.6) k/uL RBC (4.30-5.90) m/uL Hgb (13.0-17.5) gm/dL Hct (39.0-53.0) % Neutrophils # (1.3-7.7) k/uL Lymphocytes # (1.0-4.8) k/uL Potassium (3.5-5.1) mmol/L Carbon Dioxide (22-30) mmol/L BUN (9-20) mg/dL Creatinine (0.66-1.25) mg/dL Glucose (74-99) mg/dL POC Glucose (mg/dL) 263 H 225 H 213 H (75-99) mg/dL Calcium (8.4-10.2) mg/dL Troponin I (0.000-0.034) ng/mL Total Protein (6.3-8.2) g/dL Albumin (3.5-5.0) g/dL Urine Protein (Negative) Urine Glucose (UA) (Negative) Urine Blood (Negative) Urine RBC (0-5) /hpf Amorphous Sediment (None) /hpf Urine Bacteria (None) /hpf Urine Mucus (None) /hpf 05/23/19 05/23/19 05/23/19 Range/Units 00:05 01:02 02:00 WBC (3.8-10.6) k/uL RBC (4.30-5.90) m/uL Hgb (13.0-17.5) gm/dL Hct (39.0-53.0) % Neutrophils # (1.3-7.7) k/uL Lymphocytes # (1.0-4.8) k/uL Potassium (3.5-5.1) mmol/L Carbon Dioxide (22-30) mmol/L BUN (9-20) mg/dL Creatinine (0.66-1.25) mg/dL Glucose (74-99) mg/dL POC Glucose (mg/dL) 189 H 161 H 116 H (75-99) mg/dL Calcium (8.4-10.2) mg/dL Troponin I (0.000-0.034) ng/mL Total Protein (6.3-8.2) g/dL Albumin (3.5-5.0) g/dL Urine Protein (Negative) Urine Glucose (UA) (Negative) Urine Blood (Negative) Urine RBC (0-5) /hpf Amorphous Sediment (None) /hpf Urine Bacteria (None) /hpf Urine Mucus (None) /hpf 05/23/19 05/23/19 05/23/19 Range/Units 03:01 04:01 04:53 WBC 11.6 H (3.8-10.6) k/uL RBC 3.87 L (4.30-5.90) m/uL Hgb 10.9 L (13.0-17.5) gm/dL Hct 32.4 L (39.0-53.0) % Neutrophils # 10.8 H (1.3-7.7) k/uL Lymphocytes # 0.3 L (1.0-4.8) k/uL Potassium (3.5-5.1) mmol/L Carbon Dioxide (22-30) mmol/L BUN (9-20) mg/dL Creatinine (0.66-1.25) mg/dL Glucose (74-99) mg/dL POC Glucose (mg/dL) 123 H 205 H (75-99) mg/dL Calcium (8.4-10.2) mg/dL Troponin I (0.000-0.034) ng/mL Total Protein (6.3-8.2) g/dL Albumin (3.5-5.0) g/dL Urine Protein (Negative) Urine Glucose (UA) (Negative) Urine Blood (Negative) Urine RBC (0-5) /hpf Amorphous Sediment (None) /hpf Urine Bacteria (None) /hpf Urine Mucus (None) /hpf 05/23/19 05/23/19 05/23/19 Range/Units 04:53 05:00 06:04 WBC (3.8-10.6) k/uL RBC (4.30-5.90) m/uL Hgb (13.0-17.5) gm/dL Hct (39.0-53.0) % Neutrophils # (1.3-7.7) k/uL Lymphocytes # (1.0-4.8) k/uL Potassium 2.6 L* (3.5-5.1) mmol/L Carbon Dioxide 20 L (22-30) mmol/L BUN 99 H (9-20) mg/dL Creatinine 5.49 H (0.66-1.25) mg/dL Glucose 195 H (74-99) mg/dL POC Glucose (mg/dL) 207 H 155 H (75-99) mg/dL Calcium 6.2 L* (8.4-10.2) mg/dL Troponin I (0.000-0.034) ng/mL Total Protein 5.8 L (6.3-8.2) g/dL Albumin 3.0 L (3.5-5.0) g/dL Urine Protein (Negative) Urine Glucose (UA) (Negative) Urine Blood (Negative) Urine RBC (0-5) /hpf Amorphous Sediment (None) /hpf Urine Bacteria (None) /hpf Urine Mucus (None) /hpf 05/23/19 05/23/19 Range/Units 07:07 08:21 WBC (3.8-10.6) k/uL RBC (4.30-5.90) m/uL Hgb (13.0-17.5) gm/dL Hct (39.0-53.0) % Neutrophils # (1.3-7.7) k/uL Lymphocytes # (1.0-4.8) k/uL Potassium (3.5-5.1) mmol/L Carbon Dioxide (22-30) mmol/L BUN (9-20) mg/dL Creatinine (0.66-1.25) mg/dL Glucose (74-99) mg/dL POC Glucose (mg/dL) 155 H 112 H (75-99) mg/dL Calcium (8.4-10.2) mg/dL Troponin I (0.000-0.034) ng/mL Total Protein (6.3-8.2) g/dL Albumin (3.5-5.0) g/dL Urine Protein (Negative) Urine Glucose (UA) (Negative) Urine Blood (Negative) Urine RBC (0-5) /hpf Amorphous Sediment (None) /hpf Urine Bacteria (None) /hpf Urine Mucus (None) /hpf Microbiology - Last 24 Hours (Table) 05/21/19 13:54 Blood Culture - Preliminary Blood No Growth after 24 hours Assessment and Plan (1) Essential hypertension Current Visit: Yes Status: Acute Code(s): I10 - ESSENTIAL (PRIMARY) HYPERTENSION SNOMED Code(s): 96507198 (2) Acute pulmonary edema Current Visit: Yes Status: Acute Code(s): J81.0 - ACUTE PULMONARY EDEMA SNOMED Code(s): 35662480 (3) Acute respiratory distress syndrome in adult Current Visit: Yes Status: Acute Code(s): J80 - ACUTE RESPIRATORY DISTRESS SYNDROME SNOMED Code(s): 88191549 (4) Influenza A Current Visit: Yes Status: Acute Code(s): J10.1 - FLU DUE TO OTH IDENT INFLUENZA VIRUS W OTH RESP MANIFEST SNOMED Code(s): 710644613 (5) Acute on chronic renal failure Current Visit: Yes Status: Acute Code(s): N17.9 - ACUTE KIDNEY FAILURE, UNSPECIFIED; N18.9 - CHRONIC KIDNEY DISEASE, UNSPECIFIED SNOMED Code(s): 727542077 Plan: We'll discontinue Lasix for now because of increasing creatinine and low potassium. May resume the Lasix if necessary. Nephrology is also following. Continue the rest of the medication
[2019-05-23] MEDS ORDERED: VANCOMYCIN IV PER PHARMACY 1 EACH MISC MISCELLANE PRN (09:38)
[2019-05-23] MEDS: GABAPENTIN 100 MG CAP PO SCH ×2 (10:24→21:02)
--- NOTE | 2019-05-23 10:56 | P.PN ---
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 to presents because of worsening dyspnea of one week duration associated with cough and white phlegm especially when he takes his inhaler. Associated with o rthopnea and paroxysmal nocturnal dyspnea but no chest pain. He denies abdominal pain, no headache, no vomiting, no change in urine or bowel habits. No fever vitals on admission showing tachycardia and high blood pressure 190/95. He was immediately placed on BiPAP. Labs showingunremarkable CBC and INR, sodium 132, potassium 3.4, creatinine is 3.9. Lactic acid 1.5, AST 75 and ALT 41.. Chest x-ray showing fluid overload. Patient was started on nitroglycerin drip and given 1 dose of Lasix 80 mg. further work up came back positive for influenza A and pt was started on Tamiflu,, troponin is elevated at 2.17, pt is admitted to ICU, with nitro drip and lasix drip, c/w BiPAP , consult critical care team, c/w asprin ,and steroid and bronchodilators and heparin prognosis is guarded given multiple and complex medical problems 05/22/2019 Patient remains in the ICU, he is currently on BiPAP patients with FiO2 -40%, which is lowered compared to last night. Patient is breathing is better and he says more than 50% improved. He still denies chest pain, no headache. No nausea vomiting. No sweating. Is still tachypneic with a preserved rate 30, other vitals are stable. CBC is stable. Sodium stable at 131, creatinine is worsened and 4.6. Renal ultrasound was unremarkable. His troponin is trending down from 2.1 down to 1.6. He remains on droplet isolation for positive for influenza A. Chest x-ray, per radiology showing some improvement in the right side with patchy consolidation of the left lower side. Chest x-ray reviewed by me showing significant improvement on radiation especially in the right side. Patient remains on Lasix drip at 10, no nitro drip. He remains on BiPAP machine. Cardiology input is appreciated, they recommended echocardiogram. Patient currently remains on Tamiflu, and steroids. Continue with aspirin. Nephrology consult is called. 05/23/2019 Patient is seen in the ICU. His breathing is improving with a air entry on auscultation. He is currently on high flow nasal cannula at 15 L/minutes. Patient can't really with no much difficulty. However patient had use BiPAP at night. He has mild leukocytosis of 11.6. Potassium was severely low at 2.6 and calcium 6.2. This will replaced. Hold Lasix drip for now for hypokalemia and high creatinine. Insulin drip was stopped and patient was started on insulin 70:30 mm going to follow-up glucose level and adjust dose accordingly. Also patient remains on insulin drip. He remains on Tamiflu on Zosyn, remains on IV steroids. And continue with hydralazine and clonidine with Norvasc and losartan for blood pressure control. Aspirin has been added. Labs showing worsening creatinine of 5.4. Chest x-ray: Pneumonia versus edema. However is improved from admission. Review of systems CONSTITUTIONAL: No fever, no malaise, no fatigue. HEENT: No recent visual problems or hearing problems. Denied any sore throat. CARDIOVASCULAR: no palpitations, no syncope. PULMONARY: no hemoptysis. GASTROINTESTINAL: No diarrhea, no nausea, no vomiting, no abdominal pain. Normoactive bowel sounds. NEUROLOGICAL: No headaches, no weakness, no numbness. HEMATOLOGICAL: Denies any bleeding or petechiae. GENITOURINARY: Denies any burning micturition, frequency, or urgency. MUSCULOSKELETAL/RHEUMATOLOGICAL: Denies any joint pain, swelling, or any muscle pain. ENDOCRINE: Denies any polyuria or polydipsia. Active Medications Generic Name Dose Route Start Last Admin Trade Name Freq PRN Reason Stop Dose Admin Albuterol Sulfate 2.5 mg 05/21/19 16:00 Ventolin Nebulized INHALATION RT-Q2H PRN Shortness Of Breath Or Wheezing Albuterol/Ipratropium 3 ml 05/21/19 15:56 Duoneb 0.5 Mg-3 Mg/3 Ml Soln INHALATION RT-Q4H PRN Shortness Of Breath Or Wheezing Albuterol/Ipratropium 3 ml 05/21/19 16:00 05/23/19 06:58 Duoneb 0.5 Mg-3 Mg/3 Ml Soln INHALATION 3 ml RT-QID DESHAWN Administration Amlodipine Besylate 10 mg 05/22/19 09:00 05/23/19 08:10 Norvasc PO 10 mg DAILY DESHAWN Administration Aspirin 81 mg 05/22/19 09:00 05/23/19 08:10 Aspirin PO 81 mg DAILY DESHAWN Administration Clonidine 0.3 mg 05/21/19 21:00 05/23/19 08:09 Catapres PO 0.3 mg BID DESHAWN Administration Docusate Sodium 100 mg 05/22/19 08:39 Colace PO BID PRN Constipation Gabapentin 100 mg 05/23/19 10:00 05/23/19 10:24 Neurontin PO 100 mg BID DESHAWN Administration Heparin Sodium (Porcine) 5,000 unit 05/22/19 00:00 05/23/19 08:09 Heparin SQ 5,000 unit Q8HR DESHAWN Administration Hydralazine HCl 100 mg 05/21/19 22:00 05/23/19 08:10 Apresoline PO 100 mg TID DESHAWN Administration Piperacillin Sod/Tazobactam 100 mls @ 25 mls/hr 05/21/19 21:00 05/23/19 08:11 Sod 3.375 gm/ Sodium Chloride IVPB 25 mls/hr Q12HR DESHAWN Administration Vancomycin HCl 2,000 mg/ 500 mls @ 167 mls/hr 05/23/19 11:00 05/23/19 10:34 Sodium Chloride IVPB 05/23/19 13:59 167 mls/hr ONCE ONE Administration Insulin Aspart 30 unit 05/23/19 17:30 Novolog Mix 70-30 Vial SQ AC-BID DESHAWN Methocarbamol 500 mg 05/23/19 09:34 Robaxin PO TID PRN Mild Pain Methylprednisolone Sodium Succinate 40 mg 05/22/19 16:00 05/23/19 08:09 Solu-Medrol IV 40 mg Q8HR DESHAWN Administration Miscellaneous Information 1 each 05/23/19 09:38 Pharmacy To Dose Iv Vancomycin MISCELLANE DIRECTED PRN Per Protocol Protocol Oseltamivir Phosphate 30 mg 05/22/19 09:00 05/23/19 08:39 Tamiflu PO 05/25/19 09:01 30 mg Q24HR DESHAWN Administration Pantoprazole Sodium 40 mg 05/22/19 17:30 05/23/19 06:22 Protonix PO 40 mg AC-BID DESHAWN Administration Objective - Vital Signs Vital signs: Vital Signs Temp 98.2 F 05/23/19 08:00 Pulse 88 05/23/19 10:00 Resp 20 05/23/19 10:00 BP 145/77 05/23/19 10:00 Pulse Ox 93 L 05/23/19 09:00 Intake & Output 05/22/19 05/23/19 05/23/19 18:59 06:59 18:59 Intake Total 368.173 7203.109 400.014 Output Total 820 820 450 Balance -261.333 204.109 -49.986 Weight 105.1 kg Intake: IV 320 865 375 0.9 240 160 80 Dextrose 5% in Water 1, 550 200 000 ml @ 50 mls/hr IV . Q23H DESHAWN with Sodium Bicarb (1 Meq/ml) 150 ml Rx#:[id number] Furosemide 100 mg In 80 Sodium Chloride 0.9% 90 ml @ 5 MG/HR 5 mls/hr IV .Q20H [facility] Rx#:[id number] Furosemide 100 mg In 55 20 Sodium Chloride 0.9% 90 ml @ 5 MG/HR 5 mls/hr IV .Q20H [facility] Rx#:[id number] Piperacillin-Tazobactam 3 100 75 .375 gm In Sodium Chloride 0.9% 100 ml @ 25 mls/hr IVPB Q12HR [facility] Rx #:[id number] Intake, IV Titration 238.667 159.109 25.014 Amount Furosemide 100 mg In 137.667 Sodium Chloride 0.9% 90 ml @ 5 MG/HR 5 mls/hr IV .Q20H [facility] Rx#:[id number] Insulin Regular 100 unit 101.000 159.109 25.014 In Sodium Chloride 0.9% 100 ml @ Per Protocol IV .Q0M [facility] Rx#:[id number] Output: Urine 820 820 450 Other: Voiding Method Indwelling Catheter Indwelling Catheter Indwelling Catheter - Exam GENERAL: The patient is alert and oriented x3, not in any acute distress. Well developed, well nourished. HEENT: Pupils are round and equally reacting to light. EOMI. No scleral icterus. No conjunctival pallor. Normocephalic, atraumatic. No pharyngeal erythema. No thyromegaly. CARDIOVASCULAR: S1 and S2 present. No murmurs, rubs, or gallops. -PULMONARY: Chest is clear to auscultation, bilateral scattered wheezing with bilateral coarse crepitation ABDOMEN: Soft, nontender, nondistended, normoactive bowel sounds. No palpable or ganomegaly. MUSCULOSKELETAL: No joint swelling or deformity. -EXTREMITIES: No cyanosis, clubbing,. Bilateral leg edema, pitting NEUROLOGICAL: Gross neurological examination did not reveal any focal deficits. SKIN: No rashes. No petechiae - Labs CBC & Chem 7: 05/23/19 04:53 05/23/19 04:53 Labs: Abnormal Lab Results - Last 24 Hours (Table) 05/22/19 05/22/19 05/22/19 Range/Units 10:37 11:14 11:55 WBC (3.8-10.6) k/uL RBC (4.30-5.90) m/uL Hgb (13.0-17.5) gm/dL Hct (39.0-53.0) % Neutrophils # (1.3-7.7) k/uL Lymphocytes # (1.0-4.8) k/uL Potassium (3.5-5.1) mmol/L Carbon Dioxide (22-30) mmol/L BUN (9-20) mg/dL Creatinine (0.66-1.25) mg/dL Glucose (74-99) mg/dL POC Glucose (mg/dL) 338 H 312 H (75-99) mg/dL Calcium (8.4-10.2) mg/dL Troponin I (0.000-0.034) ng/mL Total Protein (6.3-8.2) g/dL Albumin (3.5-5.0) g/dL Urine Protein 2+ H (Negative) Urine Glucose (UA) 1+ H (Negative) Urine Blood Small H (Negative) Urine RBC 10 H (0-5) /hpf Amorphous Sediment Rare H (None) /hpf Urine Bacteria Rare H (None) /hpf Urine Mucus Rare H (None) /hpf 05/22/19 05/22/19 05/22/19 Range/Units 13:02 13:47 14:08 WBC (3.8-10.6) k/uL RBC (4.30-5.90) m/uL Hgb (13.0-17.5) gm/dL Hct (39.0-53.0) % Neutrophils # (1.3-7.7) k/uL Lymphocytes # (1.0-4.8) k/uL Potassium (3.5-5.1) mmol/L Carbon Dioxide (22-30) mmol/L BUN (9-20) mg/dL Creatinine (0.66-1.25) mg/dL Glucose (74-99) mg/dL POC Glucose (mg/dL) 263 H 264 H (75-99) mg/dL Calcium (8.4-10.2) mg/dL Troponin I 1.270 H* (0.000-0.034) ng/mL Total Protein (6.3-8.2) g/dL Albumin (3.5-5.0) g/dL Urine Protein (Negative) Urine Glucose (UA) (Negative) Urine Blood (Negative) Urine RBC (0-5) /hpf Amorphous Sediment (None) /hpf Urine Bacteria (None) /hpf Urine Mucus (None) /hpf 05/22/19 05/22/19 05/22/19 Range/Units 14:55 16:35 18:04 WBC (3.8-10.6) k/uL RBC (4.30-5.90) m/uL Hgb (13.0-17.5) gm/dL Hct (39.0-53.0) % Neutrophils # (1.3-7.7) k/uL Lymphocytes # (1.0-4.8) k/uL Potassium (3.5-5.1) mmol/L Carbon Dioxide (22-30) mmol/L BUN (9-20) mg/dL Creatinine (0.66-1.25) mg/dL Glucose (74-99) mg/dL POC Glucose (mg/dL) 249 H 242 H 282 H (75-99) mg/dL Calcium (8.4-10.2) mg/dL Troponin I (0.000-0.034) ng/mL Total Protein (6.3-8.2) g/dL Albumin (3.5-5.0) g/dL Urine Protein (Negative) Urine Glucose (UA) (Negative) Urine Blood (Negative) Urine RBC (0-5) /hpf Amorphous Sediment (None) /hpf Urine Bacteria (None) /hpf Urine Mucus (None) /hpf 05/22/19 05/22/19 05/22/19 Range/Units 19:01 20:09 20:52 WBC (3.8-10.6) k/uL RBC (4.30-5.90) m/uL Hgb (13.0-17.5) gm/dL Hct (39.0-53.0) % Neutrophils # (1.3-7.7) k/uL Lymphocytes # (1.0-4.8) k/uL Potassium (3.5-5.1) mmol/L Carbon Dioxide (22-30) mmol/L BUN (9-20) mg/dL Creatinine (0.66-1.25) mg/dL Glucose (74-99) mg/dL POC Glucose (mg/dL) 285 H 281 H 263 H (75-99) mg/dL Calcium (8.4-10.2) mg/dL Troponin I (0.000-0.034) ng/mL Total Protein (6.3-8.2) g/dL Albumin (3.5-5.0) g/dL Urine Protein (Negative) Urine Glucose (UA) (Negative) Urine Blood (Negative) Urine RBC (0-5) /hpf Amorphous Sediment (None) /hpf Urine Bacteria (None) /hpf Urine Mucus (None) /hpf 05/22/19 05/22/19 05/23/19 Range/Units 22:10 23:08 00:05 WBC (3.8-10.6) k/uL RBC (4.30-5.90) m/uL Hgb (13.0-17.5) gm/dL Hct (39.0-53.0) % Neutrophils # (1.3-7.7) k/uL Lymphocytes # (1.0-4.8) k/uL Potassium (3.5-5.1) mmol/L Carbon Dioxide (22-30) mmol/L BUN (9-20) mg/dL Creatinine (0.66-1.25) mg/dL Glucose (74-99) mg/dL POC Glucose (mg/dL) 225 H 213 H 189 H (75-99) mg/dL Calcium (8.4-10.2) mg/dL Troponin I (0.000-0.034) ng/mL Total Protein (6.3-8.2) g/dL Albumin (3.5-5.0) g/dL Urine Protein (Negative) Urine Glucose (UA) (Negative) Urine Blood (Negative) Urine RBC (0-5) /hpf Amorphous Sediment (None) /hpf Urine Bacteria (None) /hpf Urine Mucus (None) /hpf 05/23/19 05/23/19 05/23/19 Range/Units 01:02 02:00 03:01 WBC (3.8-10.6) k/uL RBC (4.30-5.90) m/uL Hgb (13.0-17.5) gm/dL Hct (39.0-53.0) % Neutrophils # (1.3-7.7) k/uL Lymphocytes # (1.0-4.8) k/uL Potassium (3.5-5.1) mmol/L Carbon Dioxide (22-30) mmol/L BUN (9-20) mg/dL Creatinine (0.66-1.25) mg/dL Glucose (74-99) mg/dL POC Glucose (mg/dL) 161 H 116 H 123 H (75-99) mg/dL Calcium (8.4-10.2) mg/dL Troponin I (0.000-0.034) ng/mL Total Protein (6.3-8.2) g/dL Albumin (3.5-5.0) g/dL Urine Protein (Negative) Urine Glucose (UA) (Negative) Urine Blood (Negative) Urine RBC (0-5) /hpf Amorphous Sediment (None) /hpf Urine Bacteria (None) /hpf Urine Mucus (None) /hpf 05/23/19 05/23/19 05/23/19 Range/Units 04:01 04:53 04:53 WBC 11.6 H (3.8-10.6) k/uL RBC 3.87 L (4.30-5.90) m/uL Hgb 10.9 L (13.0-17.5) gm/dL Hct 32.4 L (39.0-53.0) % Neutrophils # 10.8 H (1.3-7.7) k/uL Lymphocytes # 0.3 L (1.0-4.8) k/uL Potassium 2.6 L* (3.5-5.1) mmol/L Carbon Dioxide 20 L (22-30) mmol/L BUN 99 H (9-20) mg/dL Creatinine 5.49 H (0.66-1.25) mg/dL Glucose 195 H (74-99) mg/dL POC Glucose (mg/dL) 205 H (75-99) mg/dL Calcium 6.2 L* (8.4-10.2) mg/dL Troponin I (0.000-0.034) ng/mL Total Protein 5.8 L (6.3-8.2) g/dL Albumin 3.0 L (3.5-5.0) g/dL Urine Protein (Negative) Urine Glucose (UA) (Negative) Urine Blood (Negative) Urine RBC (0-5) /hpf Amorphous Sediment (None) /hpf Urine Bacteria (None) /hpf Urine Mucus (None) /hpf 05/23/19 05/23/19 05/23/19 Range/Units 05:00 06:04 07:07 WBC (3.8-10.6) k/uL RBC (4.30-5.90) m/uL Hgb (13.0-17.5) gm/dL Hct (39.0-53.0) % Neutrophils # (1.3-7.7) k/uL Lymphocytes # (1.0-4.8) k/uL Potassium (3.5-5.1) mmol/L Carbon Dioxide (22-30) mmol/L BUN (9-20) mg/dL Creatinine (0.66-1.25) mg/dL Glucose (74-99) mg/dL POC Glucose (mg/dL) 207 H 155 H 155 H (75-99) mg/dL Calcium (8.4-10.2) mg/dL Troponin I (0.000-0.034) ng/mL Total Protein (6.3-8.2) g/dL Albumin (3.5-5.0) g/dL Urine Protein (Negative) Urine Glucose (UA) (Negative) Urine Blood (Negative) Urine RBC (0-5) /hpf Amorphous Sediment (None) /hpf Urine Bacteria (None) /hpf Urine Mucus (None) /hpf 05/23/19 Range/Units 08:21 WBC (3.8-10.6) k/uL RBC (4.30-5.90) m/uL Hgb (13.0-17.5) gm/dL Hct (39.0-53.0) % Neutrophils # (1.3-7.7) k/uL Lymphocytes # (1.0-4.8) k/uL Potassium (3.5-5.1) mmol/L Carbon Dioxide (22-30) mmol/L BUN (9-20) mg/dL Creatinine (0.66-1.25) mg/dL Glucose (74-99) mg/dL POC Glucose (mg/dL) 112 H (75-99) mg/dL Calcium (8.4-10.2) mg/dL Troponin I (0.000-0.034) ng/mL Total Protein (6.3-8.2) g/dL Albumin (3.5-5.0) g/dL Urine Protein (Negative) Urine Glucose (UA) (Negative) Urine Blood (Negative) Urine RBC (0-5) /hpf Amorphous Sediment (None) /hpf Urine Bacteria (None) /hpf Urine Mucus (None) /hpf Microbiology - Last 24 Hours (Table) 05/21/19 13:54 Blood Culture - Preliminary Blood No Growth after 24 hours Assessment and Plan Assessment: acute pulmonary edema with acute congestive heart failure Hypertensive urgency, improved Influenza A infection possible acute COPD exacerbation acute hypoxic respiratory failure Acute kidney injury on chronic kidney disease CKD, stage III hypokalemia diabetes mellitus Hypertension Hyperlipidemia Sleep apnea on CPAP/BiPAP Plan: this is a pleasant 63 years old male who presents with acute renal failure and respiratory failure from fluid congestion of the lungs. Continue with oxygen via High flow nasal cannula. Following recommendation by mica plate layer hand. Hold Lasix. Check echocardiogram. cardiology consult. Continue with BiPAP as needed, continue with steroids, continue with antibiotics. Continue with aspirin. Continue with droplets isolation Labs and medication were reviewed.. Continue same treatment. Continue with symptomatic treatment. Resume home medication. Monitor lytes and vitals. DVT and GI prophylaxis. Further recommendations of the clinical course of the patient DVT prophylaxis: Subcutaneous heparin GI Prophylaxis: Pepcid PT/OT: Pending Prognosis is guarded
[2019-05-23] MEDS ORDERED: VANCOMYCIN 2,000 MG in SODIUM CHLORIDE 0.9% 500 ML 500 ML IVPB ONE (11:00)
--- NOTE | 2019-05-23 11:16 | P.PN ---
Subjective Progress Note Date: 05/23/19 Principal diagnosis: Acute hypoxic respiratory failure secondary to acute congestive heart failure, possibly systolic, and possible right upper lobe pneumonia This is a 63-year-old white male, morbidly obese, known history of COPD, however not O2 dependent and not steroid dependent, history of previous cardiac arrest in 2016, type 2 diabetes, associated with that the attic nephropathy and chronic renal failure, hypertension and hypertensive nephrosclerosis, obstructive sleep apnea, maintained on CPAP at home, remote smoking history quit in 2009. Patient presented to the ER with 1 week history of shortness of breath cough and wheezing. He was also complaining of few pillows orthopnea, paroxysmal nocturnal dyspnea, he had no fever no chills no hemoptysis no chest pain. No nausea no vomiting no abdominal pain no melena no hematemesis. Upon arrival, patient was tachycardic, hypertensive with a blood pressure of 190/95. Chest x- ray showed evidence of pulmonary edema. Labs showed no evidence of leukocytosis, his ABG on 40% FiO2 showed a pO2 of 64 pCO2 of 32, pH of 7.36, Low bicarb of 19, anion gap of 17, BUN of 67 and creatinine of 3.94, elevated troponin of 2.17, and elevated BNP of 6890. He also tested positive for influenza type A. Patient was admitted, placed on BiPAP, placed on bronchodilators, steroids, Lasix drip, Tamiflu, empiric antibiotics, and this consult was initiated. Patient is not in the ICU, responding well to diuresis, feeling better breathing easier, however he remains on BiPAP at IPAP of 16 EPAP of 6 FiO2 of 50%. O2 saturation is 94%. Repeat labs this morning showed a blood sugar of 333, BUN is 83 creatinine 4.60 bicarb is 14 and anion gap of 20. Patient was reevaluated today on 05/23/2019, remains in the ICU, continues to h ave a good urine output on Lasix drip, renal functioning is getting a bit worse, hence the Lasix was discontinued. Chest x-ray continues to show interstitial edema and what seems to be a right upper lobe consolidation, possible pneumonia. Although the possibility of atypical pulmonary edema is not entirely ruled out. Patient is empirically on antibiotics including vancomycin and Zosyn. Pro-florentino citonin level was ordered. Patient is on 5 L nasal cannula. Electrolytes showed low potassium being corrected. Bicarb is 20. BUN is 99 creatinine is 5.49. Admission creatinine was 3.94, patient does have history of chronic stage III renal failure. Patient is feeling better breathing easier compared to how he felt on admission. He is on Tamiflu, diuretics which were discontinued this morning, and antibiotics. Hardly any cough, no wheezing, he does have shortness of breath. And maintained presently on 5 L nasal cannula. Objective - Vital Signs Vital signs: Vital Signs Temp 98.2 F 05/23/19 08:00 Pulse 87 05/23/19 11:00 Resp 21 05/23/19 11:00 BP 154/77 05/23/19 11:00 Pulse Ox 93 L 05/23/19 11:00 Intake & Output 05/22/19 05/23/19 05/23/19 18:59 06:59 18:59 Intake Total 020.384 4319.109 500.014 Output Total 820 820 550 Balance -261.333 204.109 -49.986 Weight 105.1 kg Intake: IV 320 865 475 0.9 240 160 100 Dextrose 5% in Water 1, 550 250 000 ml @ 50 mls/hr IV . Q23H DESHAWN with Sodium Bicarb (1 Meq/ml) 150 ml Rx#:[id number] Furosemide 100 mg In 80 Sodium Chloride 0.9% 90 ml @ 5 MG/HR 5 mls/hr IV .Q20H DESHAWN Rx#:[id number] Furosemide 100 mg In 55 25 Sodium Chloride 0.9% 90 ml @ 5 MG/HR 5 mls/hr IV .Q20H [facility]HA[facility] Rx#:[id number] Piperacillin-Tazobactam 3 100 100 .375 gm In Sodium Chloride 0.9% 100 ml @ 25 mls/hr IVPB Q12HR [facility] Rx #:[id number] Intake, IV Titration 238.667 159.109 25.014 Amount Furosemide 100 mg In 137.667 Sodium Chloride 0.9% 90 ml @ 5 MG/HR 5 mls/hr IV .Q20H DESHAWN Rx#:[id number] Insulin Regular 100 unit 101.000 159.109 25.014 In Sodium Chloride 0.9% 100 ml @ Per Protocol IV .Q0M DESHAWN Rx#:[id number] Output: Urine 820 820 550 Other: Voiding Method Indwelling Catheter Indwelling Catheter Indwelling Catheter - Exam Physical Exam: Revealed a 63-year-old male on 5 L nasal cannula, seems to be in no distress. Head: Atraumatic, normocephalic. HEENT:[Neck is supple.] [No neck masses.] [No thyromegaly.] [No JVD.] Moist mucous membranes. Chest: [Crackles bilaterally, no wheezing noted. Symmetrical chest expansion. Cardiac Exam: Normal S1 and S2, no S3 gallop, no murmur, Abdomen: Obese, [Soft, nontender, no megaly, no rebound, no guarding, normal bowel sounds.] Extremities: Trace of bipedal edema, no clubbing no cyanosis. Neurological Exam: Alert and oriented 3, no gross focal neurologic deficits. Skin: No rashes. Psychiatric: Normal mood affect and normal mental status examination. - Labs CBC & Chem 7: 05/23/19 04:53 05/23/19 04:53 Labs: Abnormal Lab Results - Last 24 Hours (Table) 05/22/19 05/22/19 05/22/19 Range/Units 10:37 11:14 11:55 WBC (3.8-10.6) k/uL RBC (4.30-5.90) m/uL Hgb (13.0-17.5) gm/dL Hct (39.0-53.0) % Neutrophils # (1.3-7.7) k/uL Lymphocytes # (1.0-4.8) k/uL Potassium (3.5-5.1) mmol/L Carbon Dioxide (22-30) mmol/L BUN (9-20) mg/dL Creatinine (0.66-1.25) mg/dL Glucose (74-99) mg/dL POC Glucose (mg/dL) 338 H 312 H (75-99) mg/dL Calcium (8.4-10.2) mg/dL Troponin I (0.000-0.034) ng/mL Total Protein (6.3-8.2) g/dL Albumin (3.5-5.0) g/dL Urine Protein 2+ H (Negative) Urine Glucose (UA) 1+ H (Negative) Urine Blood Small H (Negative) Urine RBC 10 H (0-5) /hpf Amorphous Sediment Rare H (None) /hpf Urine Bacteria Rare H (None) /hpf Urine Mucus Rare H (None) /hpf 05/22/19 05/22/19 05/22/19 Range/Units 13:02 13:47 14:08 WBC (3.8-10.6) k/uL RBC (4.30-5.90) m/uL Hgb (13.0-17.5) gm/dL Hct (39.0-53.0) % Neutrophils # (1.3-7.7) k/uL Lymphocytes # (1.0-4.8) k/uL Potassium (3.5-5.1) mmol/L Carbon Dioxide (22-30) mmol/L BUN (9-20) mg/dL Creatinine (0.66-1.25) mg/dL Glucose (74-99) mg/dL POC Glucose (mg/dL) 263 H 264 H (75-99) mg/dL Calcium (8.4-10.2) mg/dL Troponin I 1.270 H* (0.000-0.034) ng/mL Total Protein (6.3-8.2) g/dL Albumin (3.5-5.0) g/dL Urine Protein (Negative) Urine Glucose (UA) (Negative) Urine Blood (Negative) Urine RBC (0-5) /hpf Amorphous Sediment (None) /hpf Urine Bacteria (None) /hpf Urine Mucus (None) /hpf 05/22/19 05/22/19 05/22/19 Range/Units 14:55 16:35 18:04 WBC (3.8-10.6) k/uL RBC (4.30-5.90) m/uL Hgb (13.0-17.5) gm/dL Hct (39.0-53.0) % Neutrophils # (1.3-7.7) k/uL Lymphocytes # (1.0-4.8) k/uL Potassium (3.5-5.1) mmol/L Carbon Dioxide (22-30) mmol/L BUN (9-20) mg/dL Creatinine (0.66-1.25) mg/dL Glucose (74-99) mg/dL POC Glucose (mg/dL) 249 H 242 H 282 H (75-99) mg/dL Calcium (8.4-10.2) mg/dL Troponin I (0.000-0.034) ng/mL Total Protein (6.3-8.2) g/dL Albumin (3.5-5.0) g/dL Urine Protein (Negative) Urine Glucose (UA) (Negative) Urine Blood (Negative) Urine RBC (0-5) /hpf Amorphous Sediment (None) /hpf Urine Bacteria (None) /hpf Urine Mucus (None) /hpf 05/22/19 05/22/19 05/22/19 Range/Units 19:01 20:09 20:52 WBC (3.8-10.6) k/uL RBC (4.30-5.90) m/uL Hgb (13.0-17.5) gm/dL Hct (39.0-53.0) % Neutrophils # (1.3-7.7) k/uL Lymphocytes # (1.0-4.8) k/uL Potassium (3.5-5.1) mmol/L Carbon Dioxide (22-30) mmol/L BUN (9-20) mg/dL Creatinine (0.66-1.25) mg/dL Glucose (74-99) mg/dL POC Glucose (mg/dL) 285 H 281 H 263 H (75-99) mg/dL Calcium (8.4-10.2) mg/dL Troponin I (0.000-0.034) ng/mL Total Protein (6.3-8.2) g/dL Albumin (3.5-5.0) g/dL Urine Protein (Negative) Urine Glucose (UA) (Negative) Urine Blood (Negative) Urine RBC (0-5) /hpf Amorphous Sediment (None) /hpf Urine Bacteria (None) /hpf Urine Mucus (None) /hpf 05/22/19 05/22/19 05/23/19 Range/Units 22:10 23:08 00:05 WBC (3.8-10.6) k/uL RBC (4.30-5.90) m/uL Hgb (13.0-17.5) gm/dL Hct (39.0-53.0) % Neutrophils # (1.3-7.7) k/uL Lymphocytes # (1.0-4.8) k/uL Potassium (3.5-5.1) mmol/L Carbon Dioxide (22-30) mmol/L BUN (9-20) mg/dL Creatinine (0.66-1.25) mg/dL Glucose (74-99) mg/dL POC Glucose (mg/dL) 225 H 213 H 189 H (75-99) mg/dL Calcium (8.4-10.2) mg/dL Troponin I (0.000-0.034) ng/mL Total Protein (6.3-8.2) g/dL Albumin (3.5-5.0) g/dL Urine Protein (Negative) Urine Glucose (UA) (Negative) Urine Blood (Negative) Urine RBC (0-5) /hpf Amorphous Sediment (None) /hpf Urine Bacteria (None) /hpf Urine Mucus (None) /hpf 05/23/19 05/23/19 05/23/19 Range/Units 01:02 02:00 03:01 WBC (3.8-10.6) k/uL RBC (4.30-5.90) m/uL Hgb (13.0-17.5) gm/dL Hct (39.0-53.0) % Neutrophils # (1.3-7.7) k/uL Lymphocytes # (1.0-4.8) k/uL Potassium (3.5-5.1) mmol/L Carbon Dioxide (22-30) mmol/L BUN (9-20) mg/dL Creatinine (0.66-1.25) mg/dL Glucose (74-99) mg/dL POC Glucose (mg/dL) 161 H 116 H 123 H (75-99) mg/dL Calcium (8.4-10.2) mg/dL Troponin I (0.000-0.034) ng/mL Total Protein (6.3-8.2) g/dL Albumin (3.5-5.0) g/dL Urine Protein (Negative) Urine Glucose (UA) (Negative) Urine Blood (Negative) Urine RBC (0-5) /hpf Amorphous Sediment (None) /hpf Urine Bacteria (None) /hpf Urine Mucus (None) /hpf 05/23/19 05/23/19 05/23/19 Range/Units 04:01 04:53 04:53 WBC 11.6 H (3.8-10.6) k/uL RBC 3.87 L (4.30-5.90) m/uL Hgb 10.9 L (13.0-17.5) gm/dL Hct 32.4 L (39.0-53.0) % Neutrophils # 10.8 H (1.3-7.7) k/uL Lymphocytes # 0.3 L (1.0-4.8) k/uL Potassium 2.6 L* (3.5-5.1) mmol/L Carbon Dioxide 20 L (22-30) mmol/L BUN 99 H (9-20) mg/dL Creatinine 5.49 H (0.66-1.25) mg/dL Glucose 195 H (74-99) mg/dL POC Glucose (mg/dL) 205 H (75-99) mg/dL Calcium 6.2 L* (8.4-10.2) mg/dL Troponin I (0.000-0.034) ng/mL Total Protein 5.8 L (6.3-8.2) g/dL Albumin 3.0 L (3.5-5.0) g/dL Urine Protein (Negative) Urine Glucose (UA) (Negative) Urine Blood (Negative) Urine RBC (0-5) /hpf Amorphous Sediment (None) /hpf Urine Bacteria (None) /hpf Urine Mucus (None) /hpf 05/23/19 05/23/19 05/23/19 Range/Units 05:00 06:04 07:07 WBC (3.8-10.6) k/uL RBC (4.30-5.90) m/uL Hgb (13.0-17.5) gm/dL Hct (39.0-53.0) % Neutrophils # (1.3-7.7) k/uL Lymphocytes # (1.0-4.8) k/uL Potassium (3.5-5.1) mmol/L Carbon Dioxide (22-30) mmol/L BUN (9-20) mg/dL Creatinine (0.66-1.25) mg/dL Glucose (74-99) mg/dL POC Glucose (mg/dL) 207 H 155 H 155 H (75-99) mg/dL Calcium (8.4-10.2) mg/dL Troponin I (0.000-0.034) ng/mL Total Protein (6.3-8.2) g/dL Albumin (3.5-5.0) g/dL Urine Protein (Negative) Urine Glucose (UA) (Negative) Urine Blood (Negative) Urine RBC (0-5) /hpf Amorphous Sediment (None) /hpf Urine Bacteria (None) /hpf Urine Mucus (None) /hpf 05/23/19 Range/Units 08:21 WBC (3.8-10.6) k/uL RBC (4.30-5.90) m/uL Hgb (13.0-17.5) gm/dL Hct (39.0-53.0) % Neutrophils # (1.3-7.7) k/uL Lymphocytes # (1.0-4.8) k/uL Potassium (3.5-5.1) mmol/L Carbon Dioxide (22-30) mmol/L BUN (9-20) mg/dL Creatinine (0.66-1.25) mg/dL Glucose (74-99) mg/dL POC Glucose (mg/dL) 112 H (75-99) mg/dL Calcium (8.4-10.2) mg/dL Troponin I (0.000-0.034) ng/mL Total Protein (6.3-8.2) g/dL Albumin (3.5-5.0) g/dL Urine Protein (Negative) Urine Glucose (UA) (Negative) Urine Blood (Negative) Urine RBC (0-5) /hpf Amorphous Sediment (None) /hpf Urine Bacteria (None) /hpf Urine Mucus (None) /hpf Microbiology - Last 24 Hours (Table) 05/21/19 13:54 Blood Culture - Preliminary Blood No Growth after 24 hours Assessment and Plan Assessment: Impression: Acute hypoxic respiratory failure secondary to acute congestive heart failure, possibly systolic in nature however echocardiogram is pending. Possible right upper lobe pneumonia, likely community-acquired, could also be staph aureus pneumonia since the patient is recovering from influenza A infection. Pro-calcitonin level was ordered. Hypertensive urgency, on presentation, however his blood pressure seems to be better controlled today Acute influenza A infection. Patient is now on Tamiflu. Acute exacerbation of COPD, remains on steroids and bronchodilators.. Type 2 diabetes, poorly controlled associated with diabetic nephropathy, previously diagnosed with kidney biopsy. Hypertensive nephrosclerosis and diabetic nephropathy Dyslipidemia Obstructive sleep apnea syndrome maintained normally on CPAP at home. Acute anion gap metabolic acidosis, secondary to renal failure, and also secondary to poorly controlled blood sugar, and could also be related to metformin. Possible sepsis from pneumonia. Acute on chronic kidney injury. Recommendation: Hold Lasix for today. Continue bronchodilators and steroids. Continue Tamiflu. Continue empiric antibiotics including vancomycin and Zosyn. Continue insulin Continue to control blood pressure Resume home meds except continue to hold metformin. Use BiPAP as needed Discontinue sodium bicarb drip. Renal functioning is being addressed by nephrology. GI and DVT prophylaxis. Continue to monitor in the ICU Pro-calcitonin level was ordered. Discussed his condition with other consultants on the case. Time with Patient: Less than 30
--- NOTE | 2019-05-23 12:01 | ECHOF ---
Referral Reason:Chest pain and cardiomyopathy MEASUREMENTS -------- HEIGHT: 162.6 cm WEIGHT: 104.8 kg BP: 131/65 RVIDd: 2.8 cm (< 3.3) IVSd: 1.4 cm (0.6 - 1.1) LVIDd: 5.4 cm (3.9 - 5.3) LVPWd: 1.3 cm (0.6 - 1.1) IVSs: 1.5 cm LVIDs: 4.6 cm LVPWs: 1.4 cm LA Diam: 4.2 cm (2.7 - 3.8) LAESV Index (A-L): 31.14 ml/m Ao Diam: 3.4 cm (2.0 - 3.7) AV Cusp: 1.4 cm (1.5 - 2.6) LA Diam: 3.9 cm (2.7 - 3.8) MV EXCURSION: 23.254 mm (> 18.000) MV EF SLOPE: 59 mm/s (70 - 150) EPSS: 0.7 cm MV E Jb: 0.84 m/s MV DecT: 286 ms MV A Jb: 0.97 m/s MV E/A Ratio: 0.86 RAP: 5.00 mmHg RVSP: 40.90 mmHg FINDINGS -------- Sinus rhythm. This was a techncally difficult study with suboptimal views, , Lumason utilized for enhancement of im ages. The left ventricular size is normal. There is moderate concentric left ventricular hypertrophy. O verall left ventricular systolic function is low-normal with, an EF between 50 - 55 %. The right ventricle is normal in size. LA is midly dilated 29-33ml/m2. The right atrial size is normal. 5.0mg OF Lumason UTLIZED: 2 OR MORE WALL SEGMENTS NOT VISUALIZED. There is mild aortic valve sclerosis. There is no evidence of aortic regurgitation. Mild mitral annular calcification present. There is trace mitral regurgitation. Trace tricuspid regurgitation present. There is mild pulmonary hypertension. The right ventricula r systolic pressure, as measured by Doppler, is 40.90mmHg. There is no pulmonic regurgitation present. The aortic root size is normal. There is no pericardial effusion. CONCLUSIONS -------- 1. Sinus rhythm. 2. This was a techncally difficult study with suboptimal views, , Lumason utilized for enhancement of images. 3. The left ventricular size is normal. 4. There is moderate concentric left ventricular hypertrophy. 5. Overall left ventricular systolic function is low-normal with, an EF between 50 - 55 %. 6. LA is midly dilated 29-33ml/m2. 7. 5.0mg OF Lumason UTLIZED: 2 OR MORE WALL SEGMENTS NOT VISUALIZED. 8. There is mild aortic valve sclerosis. 9. Mild mitral annular calcification present. 10. There is trace mitral regurgitation. 11. Trace tricuspid regurgitation present. 12. There is mild pulmonary hypertension. 13. There is no pulmonic regurgitation present. 14. The aortic root size is normal. 15. There is no pericardial effusion. [place]: Stefanie Prince RDCS
[2019-05-23 12:05] LABS: Glucose,Whole Blood 328 mg/dL (75-99)
[2019-05-23] MEDS: INSULIN ASPART (NovoLOG) 100 UNIT/ML VIAL SQ SCH ×4 (12:27→21:23)
--- NOTE | 2019-05-23 13:11 | PN ---
PROGRESS NOTE The patient is seen for followup for acute kidney injury. He was admitted to the hospital with shortness of breath and fever. Patient was found to have influenza A. He was also in CHF and maintained on Lasix drip. The patient has had good urine output. His respiratory status has improved however his creatinine has worsened and it is up to 5.49 today from 3.94 on initial admission. Previous creatinine in February and July of 2018 was 1.9 and 1.6 mg/dL. Overall patient states he is feeling better. He is currently off of BiPAP. Patient is also maintained on sodium bicarb. PHYSICAL EXAMINATION: On examination today, blood pressure was 154/77, heart rate 87 per minute. He is afebrile. EXAMINATION OF THE HEART: S1, S2. EXAMINATION OF THE LUNGS: Decreased breath sounds at bases. Abdomen is soft, nontender. Examination of lower extremities shows chronic skin changes, edema 1+ bilaterally. DIRECTOR OF CREATIVE SERVICES EXAM: Grossly intact. LAB: Labs show sodium of 138, potassium 2.6, chloride 99, CO2 is 20, BUN 99, creatinine 5.49, calcium 6.2. ASSESSMENT: 1. Acute kidney injury secondary to influenza as well as cardiorenal currently nonoliguric. Serum creatinine is higher today. I will discontinue the Lasix drip as respiratory status has improved. We will repeat labs in a.m. Patient has good urine output. Hopefully he will not need renal replacement therapy. 2. Metabolic acidosis, currently off of bicarb drip. 3. Congestive heart failure, volume overload, now improved. Echocardiogram shows ejection fraction 50% to 55% with left atrium mildly dilated. 4. Influenza A, maintained on Tamiflu. 5. Non gap metabolic acidosis secondary to renal failure, currently improved. 6. Acute exacerbation of chronic obstructive pulmonary disease, slowly improving. 7. Hypokalemia secondary to diuresis, being replaced. PLAN: Discontinue Lasix drip, replace potassium, discontinue bicarb drip and repeat labs in a.m. Check chest x-ray. I will decrease the dose of Lasix. MMODL / IJN: [id number] /
[2019-05-23] MEDS ORDERED: FUROSEMIDE 10 MG/ML 10 ML VIAL IV SCH (16:00)
[2019-05-23 17:13] LABS: Glucose,Whole Blood 340 mg/dL (75-99)
[2019-05-23] MEDS ORDERED: INSULN ASP PRT/INSULIN ASPART 100 UNIT/ML 10 ML VIAL SQ SCH (17:30)
[2019-05-23] MEDS ORDERED: MAGNESIUM HYDROXIDE 2,400 MG/10 ML CUP PO PRN (18:38)
[2019-05-23] MEDS: FUROSEMIDE 10 MG/ML 4 ML VIAL IV SCH (21:02)
[2019-05-23] MEDS: METHOCARBAMOL 500 MG TAB PO PRN (21:03)
[2019-05-23 21:12] LABS: Glucose,Whole Blood 314 mg/dL (75-99)
[2019-05-23] MEDS: INSULIN NPH 300 UNIT/3 ML VIAL SQ SCH (21:22)
[2019-05-24 02:00] LABS: Glucose,Whole Blood 295 mg/dL (75-99)
[2019-05-24] MEDS: INSULIN ASPART (NovoLOG) 100 UNIT/ML VIAL SQ SCH ×6 (02:35→20:30)
[2019-05-24] MEDS ORDERED: ONDANSETRON 4 MG/2 ML VIAL IVP STA (03:26)
[2019-05-24 05:58] LABS: Basophils % (A) 0 %; Eosinophils % (A) 0 %; HCT 34.5 % (39.0-53.0); HGB 11.1 gm/dL (13.0-17.5); Lymphocytes # (A) 0.3 k/uL (1.0-4.8); Lymphocytes % (A) 2 %; MCH 27.4 pg (25.0-35.0); MCHC 32.3 g/dL (31.0-37.0); MCV 84.9 fL (80.0-100.0); Mean Platelet Volume 7.3; Monocytes # (A) 0.5 k/uL (0-1.0); Monocytes % (A) 4 %; Neutrophils # (A) 10.8 k/uL (1.3-7.7); Neutrophils % (A) 91 %; Platelet Count 311 k/uL (150-450); RBC 4.06 m/uL (4.30-5.90); RDW 13.8 % (11.5-15.5); WBC 11.9 k/uL (3.8-10.6)
[2019-05-24 06:12] LABS: Albumin 3.2 g/dL (3.5-5.0); Magnesium 2.3 mg/dL (1.6-2.3); Potassium 3.1 mmol/L (3.5-5.1); Total Bilirubin 0.6 mg/dL (0.2-1.3); Total Protein 6.1 g/dL (6.3-8.2)
[2019-05-24 06:17] LABS: Vancomycin,Random 17.2 ug/mL
[2019-05-24] MEDS: PANTOPRAZOLE 40 MG TABLET PO SCH ×2 (07:00→17:10)
[2019-05-24 07:01] LABS: Glucose,Whole Blood 266 mg/dL (75-99)
[2019-05-24] MEDS: IPRATROPIUM-ALBUTEROL 3 ML NEB INHALATION SCH ×4 (07:11→20:32)
[2019-05-24] MEDS: METHOCARBAMOL 500 MG TAB PO PRN (07:15)
[2019-05-24] MEDS ORDERED: CALCIUM GLUCONATE 1 GM in SODIUM CHLORIDE 0.9% 100 ML IVPB ONE (07:30)
[2019-05-24] MEDS ORDERED: INSULN ASP PRT/INSULIN ASPART 100 UNIT/ML 10 ML VIAL SQ SCH ×2 (07:30→17:30)
[2019-05-24] MEDS ORDERED: POTASSIUM CHLORIDE ER 20 MEQ TAB.ER PO SCH (08:00)
[2019-05-24] MEDS: HEPARIN SODIUM,PORCINE 5,000 UNIT/ML 1 ML VIAL SQ SCH ×3 (08:44→23:02)
[2019-05-24] MEDS: PIPERACILLIN-TAZOBACTAM 3.375 GM in SODIUM CHLORIDE 0.9% 100 ML IVPB SCH ×2 (08:44→20:01)
[2019-05-24] MEDS: GABAPENTIN 100 MG CAP PO SCH ×2 (08:45→20:01)
[2019-05-24] MEDS: amLODIPine 10 MG TAB PO SCH (08:45)
[2019-05-24] MEDS: FUROSEMIDE 10 MG/ML 4 ML VIAL IV SCH ×2 (08:45→20:01)
[2019-05-24] MEDS: cloNIDine HCL 0.1 MG TAB PO SCH ×2 (08:45→20:01)
[2019-05-24] MEDS: methylPREDNISolone SOD SUCCI 40 MG/ML 1 ML VIAL IV SCH ×3 (08:45→23:00)
[2019-05-24] MEDS: hydrALAZINE HCL 50 MG TAB PO SCH ×3 (08:45→21:15)
[2019-05-24] MEDS: ASPIRIN 81 MG PO SCH (08:46)
[2019-05-24] MEDS: OSELTAMIVIR 60 MG/10 ML ORAL SYRINGE PO SCH (08:55)
[2019-05-24] MEDS ORDERED: FUROSEMIDE 10 MG/ML 4 ML VIAL IV SCH (09:15)
[2019-05-24] MEDS ORDERED: ONDANSETRON 4 MG/2 ML VIAL IVP PRN (09:38)
--- NOTE | 2019-05-24 09:54 | P.PN ---
Subjective Progress Note Date: 05/24/19 This 63-year-old gentleman who was admitted to the hospital with increasing shortness of breath and pulmonary infiltrates and possible edema. Patient has been treated with antibiotics and also IV Lasix. Patient also has chronic renal failure. Patient has diuresed well and feeling slightly better. A chest x-ray still shows right upper lobe infiltrate suggestive of possible pneumonia. His creatinine is up and his potassium is low. I'm going to stop the Lasix at this time, which can be resumed if necessary. Echo Cardigan was pending. Overall there seemed to be improvement. We'll continue current medical therapy. Nephrology is also following patient regarding his renal failure. He had 05/24/2019: This patient's critically appears to be more stable. In less distress and less difficulty with breathing. Patient is having good urinary output. His BUN is going up and creatinine is stable. The patient is off Lasix at this time. If necessary, we'll may have to give some IV fluids. Lungs still show expiratory wheezes and rhonchi. Patient is maintaining sinus rhythm. Heart rate is controlled. Continue current medical therapy. Objective - Vital Signs Vital signs: Vital Signs Temp 98.1 F 05/24/19 08:00 Pulse 97 05/24/19 09:00 Resp 17 05/24/19 09:00 BP 161/76 05/24/19 09:00 Pulse Ox 92 L 05/24/19 09:00 Intake & Output 05/23/19 05/24/19 05/24/19 18:59 06:59 18:59 Intake Total 545.014 240 260 Output Total 1550 1130 300 Balance -1004.986 -890 -40 Weight 103.9 kg Intake: IV 520 240 160 0.9 260 140 60 Dextrose 5% in Water 1, 150 000 ml @ 50 mls/hr IV . Q23H DESAHWN with Sodium Bicarb (1 Meq/ml) 150 ml Rx#:[id number] Furosemide 100 mg In 10 Sodium Chloride 0.9% 90 ml @ 5 MG/HR 5 mls/hr IV .Q20H DESHAWN Rx#:[id number] Piperacillin-Tazobactam 3 100 100 100 .375 gm In Sodium Chloride 0.9% 100 ml @ 25 mls/hr IVPB Q12HR [facility]HAWN Rx #:[id number] Intake, IV Titration 25.014 100 Amount Calcium Gluconate 1 gm In 100 Sodium Chloride 0.9% 100 ml @ 100 mls/hr IVPB ONCE ONE Rx#:[id number] Insulin Regular 100 unit 25.014 In Sodium Chloride 0.9% 100 ml @ Per Protocol IV .Q0M [facility] Rx#:[id number] Output: Urine 1550 1130 300 Other: Voiding Method Indwelling Catheter Indwelling Catheter Indwelling Catheter - Exam GENERAL EXAM: Patient is alert and oriented and doesn't appear to be in any acute distress HEENT: Normocephalic. Normal reaction of pupils, equal size, normal range of extraocular motion. No erythema or exudates in the throat. NECK: No masses, no nuchal rigidity. CHEST: No chest wall deformity. LUNGS: Expiratory wheezes and rhonchi HEART: S1 and S2 normal with no audible mumurs or gallops. Regular rhythm, femorals equal on both sides.. ABDOMEN: No hepatosplenomegaly, normal bowel sounds, no guarding or rigidity. SKIN: No rashes CENTRAL NERVOUS SYSTEM: No focal deficits. EXTREMITIES: No cyanosis, clubbing or edema. - Labs CBC & Chem 7: 05/24/19 05:43 05/24/19 05:43 Labs: Abnormal Lab Results - Last 24 Hours (Table) 05/23/19 05/23/19 05/23/19 Range/Units 04:53 12:03 17:12 WBC (3.8-10.6) k/uL RBC (4.30-5.90) m/uL Hgb (13.0-17.5) gm/dL Hct (39.0-53.0) % Neutrophils # (1.3-7.7) k/uL Lymphocytes # (1.0-4.8) k/uL Potassium (3.5-5.1) mmol/L BUN (9-20) mg/dL Creatinine (0.66-1.25) mg/dL Glucose (74-99) mg/dL POC Glucose (mg/dL) 328 H 340 H (75-99) mg/dL Calcium (8.4-10.2) mg/dL Total Protein (6.3-8.2) g/dL Albumin (3.5-5.0) g/dL Procalcitonin 1.11 H (0.02-0.09) ng/mL 05/23/19 05/24/19 05/24/19 Range/Units 21:10 01:59 05:43 WBC 11.9 H (3.8-10.6) k/uL RBC 4.06 L (4.30-5.90) m/uL Hgb 11.1 L (13.0-17.5) gm/dL Hct 34.5 L (39.0-53.0) % Neutrophils # 10.8 H (1.3-7.7) k/uL Lymphocytes # 0.3 L (1.0-4.8) k/uL Potassium (3.5-5.1) mmol/L BUN (9-20) mg/dL Creatinine (0.66-1.25) mg/dL Glucose (74-99) mg/dL POC Glucose (mg/dL) 314 H 295 H (75-99) mg/dL Calcium (8.4-10.2) mg/dL Total Protein (6.3-8.2) g/dL Albumin (3.5-5.0) g/dL Procalcitonin (0.02-0.09) ng/mL 05/24/19 05/24/19 Range/Units 05:43 06:58 WBC (3.8-10.6) k/uL RBC (4.30-5.90) m/uL Hgb (13.0-17.5) gm/dL Hct (39.0-53.0) % Neutrophils # (1.3-7.7) k/uL Lymphocytes # (1.0-4.8) k/uL Potassium 3.1 L (3.5-5.1) mmol/L BUN 111 H* (9-20) mg/dL Creatinine 5.48 H (0.66-1.25) mg/dL Glucose 287 H (74-99) mg/dL POC Glucose (mg/dL) 266 H (75-99) mg/dL Calcium 6.0 L* (8.4-10.2) mg/dL Total Protein 6.1 L (6.3-8.2) g/dL Albumin 3.2 L (3.5-5.0) g/dL Procalcitonin (0.02-0.09) ng/mL Microbiology - Last 24 Hours (Table) 05/21/19 13:54 Blood Culture - Preliminary Blood No Growth after 48 hours Assessment and Plan (1) Essential hypertension Current Visit: Yes Status: Acute Code(s): I10 - ESSENTIAL (PRIMARY) HYPERTENSION SNOMED Code(s): 79071329 (2) Acute pulmonary edema Current Visit: Yes Status: Acute Code(s): J81.0 - ACUTE PULMONARY EDEMA SNOMED Code(s): 46696371 (3) Acute respiratory distress syndrome in adult Current Visit: Yes Status: Acute Code(s): J80 - ACUTE RESPIRATORY DISTRESS SYNDROME SNOMED Code(s): 93007345 (4) Influenza A Current Visit: Yes Status: Acute Code(s): J10.1 - FLU DUE TO OTH IDENT INFLUENZA VIRUS W OTH RESP MANIFEST SNOMED Code(s): 009453873 (5) Acute on chronic renal failure Current Visit: Yes Status: Acute Code(s): N17.9 - ACUTE KIDNEY FAILURE, UNSPECIFIED; N18.9 - CHRONIC KIDNEY DISEASE, UNSPECIFIED SNOMED Code(s): 306734090 Plan: Patient is clinically looking better. His BUN is up creatinine is stable. Maintaining sinus rhythm. Lungs still show expiratory wheezes and rhonchi. Continue current management without diuretics. May need some fluid replacement, If necessary
--- NOTE | 2019-05-24 10:03 | P.PN ---
Subjective this is a pleasant 63 years old male with past medical history of COPD not on home oxygen or steroids, status post cardiac arrest in 2016 and he follows up with Dr. Saavedra hide handler, diabetes mellitus, hypertension, hyperlipidemia, sleep apnea on CPAP, previous smoker since 2009 he quit. to presents because of worsening dyspnea of one week duration associated with cough and white phlegm especially when he takes his inhaler. Associated with o rthopnea and paroxysmal nocturnal dyspnea but no chest pain. He denies abdominal pain, no headache, no vomiting, no change in urine or bowel habits. No fever vitals on admission showing tachycardia and high blood pressure 190/95. He was immediately placed on BiPAP. Labs showingunremarkable CBC and INR, sodium 132, potassium 3.4, creatinine is 3.9. Lactic acid 1.5, AST 75 and ALT 41.. Chest x-ray showing fluid overload. Patient was started on nitroglycerin drip and given 1 dose of Lasix 80 mg. further work up came back positive for influenza A and pt was started on Tamiflu,, troponin is elevated at 2.17, pt is admitted to ICU, with nitro drip and lasix drip, c/w BiPAP , consult critical care team, c/w asprin ,and steroid and bronchodilators and heparin prognosis is guarded given multiple and complex medical problems 05/22/2019 Patient remains in the ICU, he is currently on BiPAP patients with FiO2 -40%, which is lowered compared to last night. Patient is breathing is better and he says more than 50% improved. He still denies chest pain, no headache. No nausea vomiting. No sweating. Is still tachypneic with a preserved rate 30, other vitals are stable. CBC is stable. Sodium stable at 131, creatinine is worsened and 4.6. Renal ultrasound was unremarkable. His troponin is trending down from 2.1 down to 1.6. He remains on droplet isolation for positive for influenza A. Chest x-ray, per radiology showing some improvement in the right side with patchy consolidation of the left lower side. Chest x-ray reviewed by me showing significant improvement on radiation especially in the right side. Patient remains on Lasix drip at 10, no nitro drip. He remains on BiPAP machine. Cardiology input is appreciated, they recommended echocardiogram. Patient currently remains on Tamiflu, and steroids. Continue with aspirin. Nephrology consult is called. 05/23/2019 Patient is seen in the ICU. His breathing is improving with a air entry on auscultation. He is currently on high flow nasal cannula at 15 L/minutes. Patient can't really with no much difficulty. However patient had use BiPAP at night. He has mild leukocytosis of 11.6. Potassium was severely low at 2.6 and calcium 6.2. This will replaced. Hold Lasix drip for now for hypokalemia and high creatinine. Insulin drip was stopped and patient was started on insulin 70:30 mm going to follow-up glucose level and adjust dose accordingly. Also patient remains on insulin drip. He remains on Tamiflu on Zosyn, remains on IV steroids. And continue with hydralazine and clonidine with Norvasc and losartan for blood pressure control. Aspirin has been added. Labs showing worsening creatinine of 5.4. Chest x-ray: Pneumonia versus edema. However is improved from admission. Leukocytosis at 11.9 K. 05/24/2019 Patient is awake, his breathing is little better than yesterday however still on high flow oxygen at 15 L/m via nasal cannula. History is looks a bit tight and repeat chest x-ray is requested. Patient needs and BiPAP at night. He feels some nausea. He also is constipated and lactulose has been ordered. Vitals looks stable. Creatinine is stable at 5.4, potassium 3.2 and with calcium 6.0, sugars to 266-314. Increase his insulin to 40 units twice a day. He is currently on Lasix 40 mg twice daily however wanted to be increased, this on repeat chest x-ray. Patient is making good urine output and will follow up with commutator undercutter for possible need for hemodialysis. ProBNP is improving from 6890 down to 4600 Review of systems CONSTITUTIONAL: No fever, no malaise, no fatigue. HEENT: No recent visual problems or hearing problems. Denied any sore throat. CARDIOVASCULAR: no palpitations, no syncope. PULMONARY: no hemoptysis. GASTROINTESTINAL: No diarrhea, no nausea, no vomiting, no abdominal pain. Normoactive bowel sounds. NEUROLOGICAL: No headaches, no weakness, no numbness. HEMATOLOGICAL: Denies any bleeding or petechiae. GENITOURINARY: Denies any burning micturition, frequency, or urgency. MUSCULOSKELETAL/RHEUMATOLOGICAL: Denies any joint pain, swelling, or any muscle pain. ENDOCRINE: Denies any polyuria or polydipsia. Active Medications Generic Name Dose Route Start Last Admin Trade Name Freq PRN Reason Stop Dose Admin Albuterol Sulfate 2.5 mg 05/21/19 16:00 Ventolin Nebulized INHALATION RT-Q2H PRN Shortness Of Breath Or Wheezing Albuterol/Ipratropium 3 ml 05/21/19 15:56 Duoneb 0.5 Mg-3 Mg/3 Ml Soln INHALATION RT-Q4H PRN Shortness Of Breath Or Wheezing Albuterol/Ipratropium 3 ml 05/21/19 16:00 05/24/19 07:11 Duoneb 0.5 Mg-3 Mg/3 Ml Soln INHALATION 3 ml RT-QID DESHAWN Administration Amlodipine Besylate 10 mg 05/22/19 09:00 05/24/19 08:45 Norvasc PO 10 mg DAILY DESHAWN Administration Aspirin 81 mg 05/22/19 09:00 05/24/19 08:46 Aspirin PO 81 mg DAILY DESHAWN Administration Clonidine 0.3 mg 05/21/19 21:00 05/24/19 08:45 Catapres PO 0.3 mg BID DESHAWN Administration Docusate Sodium 100 mg 05/22/19 08:39 05/24/19 07:00 Colace PO 100 mg BID PRN Administration Constipation Furosemide 40 mg 05/23/19 21:00 05/24/19 08:45 Lasix IV 40 mg Q12HR DESHA[facility] Administration Gabapentin 100 mg 05/23/19 10:00 05/24/19 08:45 Neurontin PO 100 mg BID DESHAWN Administration Heparin Sodium (Porcine) 5,000 unit 05/22/19 00:00 05/24/19 08:44 Heparin SQ 5,000 unit Q8HR DESHA[facility] Administration Hydralazine HCl 100 mg 05/21/19 22:00 05/24/19 08:45 Apresoline PO 100 mg TID DESHAWN Administration Piperacillin Sod/Tazobactam 100 mls @ 25 mls/hr 05/21/19 21:00 05/24/19 08:44 Sod 3.375 gm/ Sodium Chloride IVPB 25 mls/hr Q12HR [facility] Administration Vancomycin HCl 2,000 mg/ 500 mls @ 167 mls/hr 05/24/19 11:00 Sodium Chloride IVPB 05/24/19 13:59 ONCE ONE Potassium Chloride 10 meq/ IV 100 mls @ 100 mls/hr 05/24/19 09:30 Solution IVPB 05/24/19 11:29 Q1H DESHAWN Protocol Insulin Aspart 6 unit 05/23/19 12:30 05/23/19 12:27 Novolog 0.06 unit/kg (6 unit) 6 unit SQ Administration AC-LUNCH DESHAWN Insulin Aspart 0 unit 05/23/19 12:30 05/24/19 07:43 Novolog SQ 4 unit ACHS DESHAWN Administration Protocol Insulin Aspart 15 unit 05/24/19 07:30 05/24/19 07:43 Novolog Mix 70-30 Vial SQ 15 unit AC-BID DESHAWN Administration Insulin Human NPH 6 unit 05/23/19 21:00 05/23/19 21:22 Humulin N 0.06 unit/kg (6 unit) 6 unit SQ Administration HS [facility] Lactulose 30 gm 05/24/19 16:00 Cephulac PO TID DESHAWN Magnesium Hydroxide 2,400 mg 05/23/19 18:38 05/23/19 19:00 Milk Of Magnesia PO 2,400 mg ONCE PRN Administration Constipation Methocarbamol 500 mg 05/23/19 09:34 05/24/19 07:15 Robaxin PO 500 mg TID PRN Administration Mild Pain Methylprednisolone Sodium Succinate 40 mg 05/22/19 16:00 05/24/19 08:45 Solu-Medrol IV 40 mg Q8HR DESHAWN Administration Miscellaneous Information 1 each 05/23/19 09:38 Pharmacy To Dose Iv Vancomycin MISCELLANE DIRECTED PRN Per Protocol Protocol Ondansetron HCl 4 mg 05/24/19 09:38 Zofran IVP Q6HR PRN Nausea And Vomiting Oseltamivir Phosphate 30 mg 05/22/19 09:00 05/24/19 08:55 Tamiflu PO 05/25/19 09:01 30 mg Q24HR DESHAWN Administration Pantoprazole Sodium 40 mg 05/22/19 17:30 05/24/19 07:00 Protonix PO 40 mg AC-BID DESHAWN Administration Objective - Vital Signs Vital signs: Vital Signs Temp 98.1 F 05/24/19 08:00 Pulse 97 05/24/19 09:00 Resp 17 05/24/19 09:00 BP 161/76 05/24/19 09:00 Pulse Ox 92 L 05/24/19 09:00 Intake & Output 05/23/19 05/24/19 05/24/19 18:59 06:59 18:59 Intake Total 545.014 240 260 Output Total 1550 1130 300 Balance -1004.986 -890 -40 Weight 103.9 kg Intake: IV 520 240 160 0.9 260 140 60 Dextrose 5% in Water 1, 150 000 ml @ 50 mls/hr IV . Q23H DESHAWN with Sodium Bicarb (1 Meq/ml) 150 ml Rx#:[id number] Furosemide 100 mg In 10 Sodium Chloride 0.9% 90 ml @ 5 MG/HR 5 mls/hr IV .Q20H [facility] Rx#:[id number] Piperacillin-Tazobactam 3 100 100 100 .375 gm In Sodium Chloride 0.9% 100 ml @ 25 mls/hr IVPB Q12HR [facility] Rx #:[id number] Intake, IV Titration 25.014 100 Amount Calcium Gluconate 1 gm In 100 Sodium Chloride 0.9% 100 ml @ 100 mls/hr IVPB ONCE ONE Rx#:[id number] Insulin Regular 100 unit 25.014 In Sodium Chloride 0.9% 100 ml @ Per Protocol IV .Q0M [facility] Rx#:[id number] Output: Urine 1550 1130 300 Other: Voiding Method Indwelling Catheter Indwelling Catheter Indwelling Catheter - Exam GENERAL: The patient is alert and oriented x3, not in any acute distress. Well developed, well nourished. HEENT: Pupils are round and equally reacting to light. EOMI. No scleral icterus. No conjunctival pallor. Normocephalic, atraumatic. No pharyngeal erythema. No thyromegaly. CARDIOVASCULAR: S1 and S2 present. No murmurs, rubs, or gallops. -PULMONARY: Chest is clear to auscultation, bilateral scattered wheezing with bilateral coarse crepitation ABDOMEN: Soft, nontender, nondistended, normoactive bowel sounds. No palpable organomegaly. MUSCULOSKELETAL: No joint swelling or deformity. -EXTREMITIES: No cyanosis, clubbing,. Bilateral leg edema, pitting NEUROLOGICAL: Gross neurological examination did not reveal any focal deficits. SKIN: No rashes. No petechiae - Labs CBC & Chem 7: 05/24/19 05:43 05/24/19 05:43 Labs: Abnormal Lab Results - Last 24 Hours (Table) 05/23/19 05/23/19 05/23/19 Range/Units 04:53 12:03 17:12 WBC (3.8-10.6) k/uL RBC (4.30-5.90) m/uL Hgb (13.0-17.5) gm/dL Hct (39.0-53.0) % Neutrophils # (1.3-7.7) k/uL Lymphocytes # (1.0-4.8) k/uL Potassium (3.5-5.1) mmol/L BUN (9-20) mg/dL Creatinine (0.66-1.25) mg/dL Glucose (74-99) mg/dL POC Glucose (mg/dL) 328 H 340 H (75-99) mg/dL Calcium (8.4-10.2) mg/dL Total Protein (6.3-8.2) g/dL Albumin (3.5-5.0) g/dL Procalcitonin 1.11 H (0.02-0.09) ng/mL 05/23/19 05/24/19 05/24/19 Range/Units 21:10 01:59 05:43 WBC 11.9 H (3.8-10.6) k/uL RBC 4.06 L (4.30-5.90) m/uL Hgb 11.1 L (13.0-17.5) gm/dL Hct 34.5 L (39.0-53.0) % Neutrophils # 10.8 H (1.3-7.7) k/uL Lymphocytes # 0.3 L (1.0-4.8) k/uL Potassium (3.5-5.1) mmol/L BUN (9-20) mg/dL Creatinine (0.66-1.25) mg/dL Glucose (74-99) mg/dL POC Glucose (mg/dL) 314 H 295 H (75-99) mg/dL Calcium (8.4-10.2) mg/dL Total Protein (6.3-8.2) g/dL Albumin (3.5-5.0) g/dL Procalcitonin (0.02-0.09) ng/mL 05/24/19 05/24/19 Range/Units 05:43 06:58 WBC (3.8-10.6) k/uL RBC (4.30-5.90) m/uL Hgb (13.0-17.5) gm/dL Hct (39.0-53.0) % Neutrophils # (1.3-7.7) k/uL Lymphocytes # (1.0-4.8) k/uL Potassium 3.1 L (3.5-5.1) mmol/L BUN 111 H* (9-20) mg/dL Creatinine 5.48 H (0.66-1.25) mg/dL Glucose 287 H (74-99) mg/dL POC Glucose (mg/dL) 266 H (75-99) mg/dL Calcium 6.0 L* (8.4-10.2) mg/dL Total Protein 6.1 L (6.3-8.2) g/dL Albumin 3.2 L (3.5-5.0) g/dL Procalcitonin (0.02-0.09) ng/mL Microbiology - Last 24 Hours (Table) 05/21/19 13:54 Blood Culture - Preliminary Blood No Growth after 48 hours Assessment and Plan Assessment: acute pulmonary edema with acute congestive heart failure Hypertensive urgency, improved Influenza A infection possible acute COPD exacerbation acute hypoxic respiratory failure Acute kidney injury on chronic kidney disease CKD, stage III hypokalemia diabetes mellitus Hypertension Hyperlipidemia Sleep apnea on CPAP/BiPAP Plan: this is a pleasant 63 years old male who presents with acute renal failure and respiratory failure from fluid congestion of the lungs. Continue with oxygen via High flow nasal cannula. Following recommendation by commutator undercutter. Continue with Lasix. Follow-up recommendation by hide handler, commutator undercutter and cut off saw grader. Continue with BiPAP as needed at night. Continue with high flow oxygen via nasal cannula. Continue with steroids and antibiotics. Continue with aspirin, and Labs and medication were reviewed.. Continue same treatment. Continue with symptomatic treatment. Resume home medication. Monitor lytes and vitals. DVT and GI prophylaxis. Further recommendations of the clinical course of the patient DVT prophylaxis: Subcutaneous heparin GI Prophylaxis: Pepcid PT/OT: Pending Prognosis is guarded
[2019-05-24] MEDS: POTASSIUM CHLORIDE 10 MEQ in WATER FOR INJECTION 1 100ML.BAG IVPB SCH ×2 (10:04→10:47)
--- NOTE | 2019-05-24 10:29 | P.PN ---
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 Patient presented to the ER with 1 week history of shortness of breath cough and wheezing. He was also complaining of few pillows orthopnea, paroxysmal nocturnal dyspnea, he had no fever no chills no hemoptysis no chest pain. No nausea no vomiting no abdominal pain no melena no hematemesis. Upon arrival, patient was tachycardic, hypertensive with a blood pressure of 190/95. Chest x- ray showed evidence of pulmonary edema. Labs showed no evidence of leukocytosis, his ABG on 40% FiO2 showed a pO2 of 64 pCO2 of 32, pH of 7.36, Low bicarb of 19, anion gap of 17, BUN of 67 and creatinine of 3.94, elevated troponin of 2.17, and elevated BNP of 6890. He also tested positive for influenza type A. Patient was admitted, placed on BiPAP, placed on bronchodilators, steroids, Lasix drip, Tamiflu, empiric antibiotics, and this consult was initiated. Patient is not in the ICU, responding well to diuresis, feeling better breathing easier, however he remains on BiPAP at IPAP of 16 EPAP of 6 FiO2 of 50%. O2 saturation is 94%. Repeat labs this morning showed a blood sugar of 333, BUN is 83 creatinine 4.60 bicarb is 14 and anion gap of 20. Patient was reevaluated today on 05/23/2019, remains in the ICU, continues to h ave a good urine output on Lasix drip, renal functioning is getting a bit worse, hence the Lasix was discontinued. Chest x-ray continues to show interstitial edema and what seems to be a right upper lobe consolidation, possible pneumonia. Although the possibility of atypical pulmonary edema is not entirely ruled out. Patient is empirically on antibiotics including vancomycin and Zosyn. Pro-florentino citonin level was ordered. Patient is on 5 L nasal cannula. Electrolytes showed low potassium being corrected. Bicarb is 20. BUN is 99 creatinine is 5.49. Admission creatinine was 3.94, patient does have history of chronic stage III renal failure. Patient is feeling better breathing easier compared to how he felt on admission. He is on Tamiflu, diuretics which were discontinued this morning, and antibiotics. Hardly any cough, no wheezing, he does have shortness of breath. And maintained presently on 5 L nasal cannula. Patient was reevaluated today on 05/24/2019, remains in the intensive care unit, he is on high flow nasal cannula, O2 saturation is marginal, received a dose of Lasix earlier today, and last night he had an episode of increased shortness of breath, desaturation, coughing and wheezing, placed on BiPAP. Off BiPAP at 4:00 this morning. Has been off and on a high flow nasal cannula since 4 AM. His overall pulmonary status remains marginal. Chest x-ray this morning is pending. Presently the patient is feeling a bit better, however he did receive earlier 40 mg of Lasix IV push. Remains on broad-spectrum antibiotics, remains on bronchodilators, remains on steroids. CBC is relatively normal electrolytes showed low potassium of 3.1 renal functioning showed BUN of 111 creatinine 5.48. Similar to yesterday. Pro-calcitonin level is elevated, it is 1.11, hence we'll continue antibiotics. Objective - Vital Signs Vital signs: Vital Signs Temp 98.1 F 05/24/19 08:00 Pulse 97 05/24/19 09:00 Resp 17 05/24/19 09:00 BP 161/76 05/24/19 09:00 Pulse Ox 92 L 05/24/19 09:00 Intake & Output 05/23/19 05/24/19 05/24/19 18:59 06:59 18:59 Intake Total 545.014 240 260 Output Total 1550 1130 300 Balance -1004.986 -890 -40 Weight 103.9 kg Intake: IV 520 240 160 0.9 260 140 60 Dextrose 5% in Water 1, 150 000 ml @ 50 mls/hr IV . Q23H DESHAWN with Sodium Bicarb (1 Meq/ml) 150 ml Rx#:[id number] Furosemide 100 mg In 10 Sodium Chloride 0.9% 90 ml @ 5 MG/HR 5 mls/hr IV .Q20H DESHAWN Rx#:[id number] Piperacillin-Tazobactam 3 100 100 100 .375 gm In Sodium Chloride 0.9% 100 ml @ 25 mls/hr IVPB Q12HR [facility] Rx #:[id number] Intake, IV Titration 25.014 100 Amount Calcium Gluconate 1 gm In 100 Sodium Chloride 0.9% 100 ml @ 100 mls/hr IVPB ONCE ONE Rx#:[id number] Insulin Regular 100 unit 25.014 In Sodium Chloride 0.9% 100 ml @ Per Protocol IV .Q0M [facility] Rx#:[id number] Output: Urine 1550 1130 300 Other: Voiding Method Indwelling Catheter Indwelling Catheter Indwelling Catheter - Exam Physical Exam: Revealed a 63-year-old male on high flow nasal cannula at 10 L/m. Head: Atraumatic, normocephalic. HEENT:[Neck is supple.] [No neck masses.] [No thyromegaly.] [No JVD.] Moist mucous membranes. Chest: [Crackles bilaterally, no wheezing noted. Symmetrical chest expansion. Cardiac Exam: Normal S1 and S2, no S3 gallop, no murmur, Abdomen: Obese, [Soft, nontender, no megaly, no rebound, no guarding, normal bowel sounds.] Extremities: Trace of bipedal edema, no clubbing no cyanosis. Neurological Exam: Alert and oriented 3, no gross focal neurologic deficits. Skin: No rashes. Psychiatric: Normal mood affect and normal mental status examination. - Labs CBC & Chem 7: 05/24/19 05:43 05/24/19 05:43 Labs: Abnormal Lab Results - Last 24 Hours (Table) 05/23/19 05/23/19 05/23/19 Range/Units 04:53 12:03 17:12 WBC (3.8-10.6) k/uL RBC (4.30-5.90) m/uL Hgb (13.0-17.5) gm/dL Hct (39.0-53.0) % Neutrophils # (1.3-7.7) k/uL Lymphocytes # (1.0-4.8) k/uL Potassium (3.5-5.1) mmol/L BUN (9-20) mg/dL Creatinine (0.66-1.25) mg/dL Glucose (74-99) mg/dL POC Glucose (mg/dL) 328 H 340 H (75-99) mg/dL Calcium (8.4-10.2) mg/dL Total Protein (6.3-8.2) g/dL Albumin (3.5-5.0) g/dL Procalcitonin 1.11 H (0.02-0.09) ng/mL 05/23/19 05/24/19 05/24/19 Range/Units 21:10 01:59 05:43 WBC 11.9 H (3.8-10.6) k/uL RBC 4.06 L (4.30-5.90) m/uL Hgb 11.1 L (13.0-17.5) gm/dL Hct 34.5 L (39.0-53.0) % Neutrophils # 10.8 H (1.3-7.7) k/uL Lymphocytes # 0.3 L (1.0-4.8) k/uL Potassium (3.5-5.1) mmol/L BUN (9-20) mg/dL Creatinine (0.66-1.25) mg/dL Glucose (74-99) mg/dL POC Glucose (mg/dL) 314 H 295 H (75-99) mg/dL Calcium (8.4-10.2) mg/dL Total Protein (6.3-8.2) g/dL Albumin (3.5-5.0) g/dL Procalcitonin (0.02-0.09) ng/mL 05/24/19 05/24/19 Range/Units 05:43 06:58 WBC (3.8-10.6) k/uL RBC (4.30-5.90) m/uL Hgb (13.0-17.5) gm/dL Hct (39.0-53.0) % Neutrophils # (1.3-7.7) k/uL Lymphocytes # (1.0-4.8) k/uL Potassium 3.1 L (3.5-5.1) mmol/L BUN 111 H* (9-20) mg/dL Creatinine 5.48 H (0.66-1.25) mg/dL Glucose 287 H (74-99) mg/dL POC Glucose (mg/dL) 266 H (75-99) mg/dL Calcium 6.0 L* (8.4-10.2) mg/dL Total Protein 6.1 L (6.3-8.2) g/dL Albumin 3.2 L (3.5-5.0) g/dL Procalcitonin (0.02-0.09) ng/mL Microbiology - Last 24 Hours (Table) 05/21/19 13:54 Blood Culture - Preliminary Blood No Growth after 48 hours Assessment and Plan Assessment: Impression: Acute hypoxic respiratory failure secondary to acute congestive heart failure, diastolic congestive heart failure. Echocardiogram showed Good LV function. Possible right upper lobe pneumonia, likely community-acquired, could also be staph aureus pneumonia since the patient is recovering from influenza A infection. Pro-calcitonin level was 1.11 Hypertensive urgency, on presentation, remains on treatment for blood pressure. Acute influenza A infection. Continue Tamiflu. Acute exacerbation of COPD, continue bronchodilators and steroids. Type 2 diabetes, poorly controlled associated with diabetic nephropathy, previously diagnosed with kidney biopsy. Hypertensive nephrosclerosis and diabetic nephropathy Dyslipidemia Obstructive sleep apnea syndrome maintained normally on CPAP at home. Used last night because of desaturation and increased shortness of breath. Acute on chronic kidney injury. Recommendation: Follow-up chest x-ray this morning was ordered. Resume Lasix at 40 mg IV push every 12 hours. Continue bronchodilators and steroids. Continue Tamiflu. Continue empiric vancomycin and Zosyn. Continue insulin Continue to control blood pressure Continue to hold metformin. Use insulin as per protocol. Use BiPAP as needed Renal functioning is being addressed by nephrology. GI and DVT prophylaxis. Continue to monitor in the ICU Pro-calcitonin level is elevated hence we'll continue antibiotics. We'll continue to monitor in the ICU Time with Patient: Less than 30
--- NOTE | 2019-05-24 10:33 | PN ---
PROGRESS NOTE Patient is seen for followup for acute kidney injury secondary to influenza and cardiorenal syndrome. Patient was admitted to the hospital with shortness of breath. He tested positive for influenza A. He also had CHF, which is mainly diastolic dysfunction and was initially maintained on Lasix drip. Lasix drip was discontinued and yesterday Lasix was decreased to 40 mg q.12 hours. The patient is off of BiPAP. However, he did need a BiPAP last night. His creatinine had increased to 5.4 yesterday. However, today it is the same at 5.4. Patient continues to have good urine output at about 75 to 100 mL an hour. Overall, he states he is feeling better. Previous creatinine was 1.9 on 03/26/2019 and 1.5 in 2018. PHYSICAL EXAMINATION: On examination, patient is comfortable, awake. He is not in any acute distress. Blood pressure is 161/76, heart rate 97 per minute. He is afebrile. EXAMINATION OF THE HEART: S1, S2. EXAMINATION OF THE LUNGS: Decreased breath sounds at the bases. Occasional crackles are heard. ABDOMEN: Soft, nontender. Examination of lower extremities shows edema 1+ bilaterally. LIFE ADVISOR EXAM: Grossly intact. LABS: Labs show sodium of 137, potassium 3.1, chloride 100, CO2 is 22, BUN 111, serum creatinine 5.4, calcium 6.0, albumin 3.2. Vancomycin level 17.2. Hemoglobin 11.1 g/dL. ASSESSMENT: 1. Acute kidney injury, cardiorenal as well as acute tubular necrosis and secondary to influenza, currently nonoliguric. Renal function is fairly stable. We will check the chest x-ray and if patient's volume status is further improved, I can decrease the Lasix. However, I feel he will still need a small amount of diuretics. Hopefully the kidney function will start to improve over the weekend. I will discontinue the vancomycin as well. 2. Hypokalemia associated with diuresis, currently being replaced. 3. Influenza A, maintained on Tamiflu. 4. Congestive heart failure, acute on top of chronic diastolic dysfunction, status post Lasix drip currently maintained on 40 mg IV q.12 hours. 5. Chronic kidney disease, stage 3. Previous creatinine 1.5 to 1.9 mg/dL. Secondary to nephrosclerosis. 6. Non-gap metabolic acidosis secondary to renal failure, now improved. 7. Acute exacerbation of chronic obstructive pulmonary disease, slowly improving. PLAN: Check chest x-ray. Continue with the Lasix for now. Decrease if volume status is further improved based on the chest x-ray. Clinically patient is better. However, he remains volume overloaded. Discontinue vancomycin and repeat labs in a.m. MMODL / IJN: [id number] /
[2019-05-24] MEDS ORDERED: VANCOMYCIN 2,000 MG in SODIUM CHLORIDE 0.9% 500 ML 500 ML IVPB ONE (11:00)
--- NOTE | 2019-05-24 11:30 | XR ---
EXAMINATION TYPE: XR chest 1V portable DATE OF EXAM: 05/24/2019 CLINICAL HISTORY: Difficulty breathing progress study. TECHNIQUE: Single AP portable upright view of the chest is obtained. COMPARISON: Chest x-ray from one day earlier and older studies FINDINGS: Persistent multifocal airspace opacities inferior lateral right upper lobe and medial righ t basilar region along with left mid to lower lung, left-sided findings more prominent from most rece nt study. No pleural effusion or pneumothorax. Cardiac silhouettes are stable and upper limits of nor mal. Old fracture deformity left clavicle redemonstrated IMPRESSION: Multilobar multifocal bilateral acute infiltrates appear more prominent left mid to lower lung versus most recent x-ray. Progress study advised.
[2019-05-24 11:53] LABS: Glucose,Whole Blood 248 mg/dL (75-99)
[2019-05-24] MEDS: LACTULOSE 20 GM/30 ML CUP PO SCH ×2 (16:02→21:15)
[2019-05-24 16:55] LABS: Glucose,Whole Blood 306 mg/dL (75-99)
[2019-05-24 20:28] LABS: Glucose,Whole Blood 294 mg/dL (75-99)
[2019-05-24] MEDS: INSULIN NPH 300 UNIT/3 ML VIAL SQ SCH (20:30)
[2019-05-25 05:36] LABS: Basophils % (A) 0 %; Eosinophils % (A) 0 %; HCT 33.4 % (39.0-53.0); HGB 10.9 gm/dL (13.0-17.5); Lymphocytes # (A) 0.2 k/uL (1.0-4.8); Lymphocytes % (A) 2 %; MCH 27.5 pg (25.0-35.0); MCHC 32.7 g/dL (31.0-37.0); MCV 84.1 fL (80.0-100.0); Mean Platelet Volume 7.5; Monocytes # (A) 0.6 k/uL (0-1.0); Monocytes % (A) 5 %; Neutrophils # (A) 10.3 k/uL (1.3-7.7); Neutrophils % (A) 91 %; Platelet Count 350 k/uL (150-450); RBC 3.96 m/uL (4.30-5.90); RDW 13.7 % (11.5-15.5); WBC 11.2 k/uL (3.8-10.6)
[2019-05-25 05:40] LABS: Potassium 3.8 mmol/L (3.5-5.1)
[2019-05-25 05:45] LABS: Vancomycin,Random 12.9 ug/mL
[2019-05-25 05:57] LABS: Calcium 6.2 mg/dL (8.4-10.2)
[2019-05-25 06:46] LABS: Glucose,Whole Blood 247 mg/dL (75-99)
[2019-05-25] MEDS: PANTOPRAZOLE 40 MG TABLET PO SCH ×2 (06:51→16:59)
[2019-05-25] MEDS: INSULIN ASPART (NovoLOG) 100 UNIT/ML VIAL SQ SCH ×5 (06:51→20:11)
--- NOTE | 2019-05-25 06:56 | XR ---
EXAMINATION TYPE: XR chest 1V portable DATE OF EXAM: 05/25/2019 CLINICAL HISTORY: Difficulty breathing progress study. TECHNIQUE: Single AP portable upright view of the chest is obtained. COMPARISON: Chest x-ray from one day earlier and older studies. FINDINGS: Persistent multifocal airspace opacities right mid lung laterally and medial right basilar region along with left lower lung, improved left midlung opacity from most recent prior. No new pleu ral effusion or pneumothorax. Cardiac silhouettes are stable and mildly enlarged. Old fracture deform ity left clavicle less well seen. IMPRESSION: Bilateral multifocal areas of acute infiltrate and/or atelectasis with some improvement m idlung findings noted since most recent prior.
[2019-05-25] MEDS ORDERED: INSULN ASP PRT/INSULIN ASPART 100 UNIT/ML 10 ML VIAL SQ SCH ×2 (07:30→17:30)
[2019-05-25] MEDS ORDERED: CALCIUM GLUCONATE 2 GM in SODIUM CHLORIDE 0.9% 100 ML IVPB ONE (08:00)
[2019-05-25] MEDS ORDERED: CALCIUM GLUCONATE 1 GM in SODIUM CHLORIDE 0.9% 100 ML IVPB ONE (08:00)
--- NOTE | 2019-05-25 08:10 | P.PN ---
Subjective Patient is seen in follow-up for acute kidney injury on chronic kidney disease. Renal function is stable. Patient is nonoliguric. Currently maintained on Lasix 40 mg IV twice daily. Currently on 15 L nasal cannula. Vital signs are stable. General: The patient appeared well nourished and normally developed. HEENT: Head exam is unremarkable. Neck is without jugular venous distension. LUNGS: Breath sounds decreased. HEART: Rate and Rhythm are regular. First and second heart sounds normal. No murmurs, rubs or gallops. ABDOMEN: Abdominal exam reveals normal bowel sounds. Non-tender and non- distended. No evidence of peritonitis. EXTREMITITES: No clubbing, cyanosis, or edema. Objective - Vital Signs Vital signs: Vital Signs Temp 97.6 F 05/25/19 04:00 Pulse 85 05/25/19 07:00 Resp 19 05/25/19 07:00 BP 156/87 05/25/19 07:00 Pulse Ox 96 05/25/19 07:00 Intake & Output 05/24/19 05/25/19 05/25/19 18:59 06:59 18:59 Intake Total 1090 540 20 Output Total 1140 710 120 Balance -50 -170 -100 Weight 102.9 kg Intake: IV 340 240 20 0.9 240 240 20 Piperacillin-Tazobactam 3 100 .375 gm In Sodium Chloride 0.9% 100 ml @ 25 mls/hr IVPB Q12HR [facility] Rx #:[id number] Intake, IV Titration 300 Amount Calcium Gluconate 1 gm In 100 Sodium Chloride 0.9% 100 ml @ 100 mls/hr IVPB ONCE ONE Rx#:[id number] Potassium Chloride 10 meq 200 In Water For Injection 1 100ml.bag @ 100 mls/hr IVPB Q1H [facility] Rx#: [id number] Oral 450 300 Output: Urine 1140 710 120 Other: Voiding Method Indwelling Catheter Indwelling Catheter - Labs CBC & Chem 7: 05/25/19 04:44 05/25/19 04:44 Labs: Abnormal Lab Results - Last 24 Hours (Table) 05/24/19 05/24/19 05/24/19 Range/Units 11:52 16:53 20:26 WBC (3.8-10.6) k/uL RBC (4.30-5.90) m/uL Hgb (13.0-17.5) gm/dL Hct (39.0-53.0) % Neutrophils # (1.3-7.7) k/uL Lymphocytes # (1.0-4.8) k/uL BUN (9-20) mg/dL Creatinine (0.66-1.25) mg/dL Glucose (74-99) mg/dL POC Glucose (mg/dL) 248 H 306 H 294 H (75-99) mg/dL Calcium (8.4-10.2) mg/dL Ionized Calcium Khurram (4.5-5.3) mg/dL 05/25/19 05/25/19 05/25/19 Range/Units 04:44 04:44 06:19 WBC 11.2 H (3.8-10.6) k/uL RBC 3.96 L (4.30-5.90) m/uL Hgb 10.9 L (13.0-17.5) gm/dL Hct 33.4 L (39.0-53.0) % Neutrophils # 10.3 H (1.3-7.7) k/uL Lymphocytes # 0.2 L (1.0-4.8) k/uL BUN 112 H* (9-20) mg/dL Creatinine 5.36 H (0.66-1.25) mg/dL Glucose 225 H (74-99) mg/dL POC Glucose (mg/dL) (75-99) mg/dL Calcium 6.2 L* (8.4-10.2) mg/dL Ionized Calcium Khurram 3.5 L* (4.5-5.3) mg/dL 05/25/19 Range/Units 06:45 WBC (3.8-10.6) k/uL RBC (4.30-5.90) m/uL Hgb (13.0-17.5) gm/dL Hct (39.0-53.0) % Neutrophils # (1.3-7.7) k/uL Lymphocytes # (1.0-4.8) k/uL BUN (9-20) mg/dL Creatinine (0.66-1.25) mg/dL Glucose (74-99) mg/dL POC Glucose (mg/dL) 247 H (75-99) mg/dL Calcium (8.4-10.2) mg/dL Ionized Calcium Khurram (4.5-5.3) mg/dL Microbiology - Last 24 Hours (Table) 05/21/19 13:54 Blood Culture - Preliminary Blood No Growth after 72 hours Assessment and Plan Plan: Assessment: 1. Acute kidney injury secondary to ATN secondary to infection. Also component of cardiorenal syndrome. Renal function stable. Creatinine 5.36 today. Elevated BUN which is due to renal failure as well as IV steroids. 2. Chronic kidney disease stage III. Baseline creatinine 1.5-1.6. Etiology is diabetic kidney disease. 3. Influenza A maintained on Tamiflu. 4. Acute on chronic diastolic CHF. 5. Volume overload maintain IV Lasix. Better. 6. Hypocalcemia secondary to acute kidney injury. 7. Hypokalemia secondary to diuresis. Better. 8. Hypertension with chronic kidney disease. 9. Insulin-dependent diabetes mellitus. Plan: Maintain IV Lasix 40 mg twice daily. Wean FiO2. Replace calcium. 2 g IV today. Continue to monitor renal function and urine output.
[2019-05-25] MEDS: amLODIPine 10 MG TAB PO SCH (08:14)
[2019-05-25] MEDS: hydrALAZINE HCL 50 MG TAB PO SCH ×3 (08:14→21:20)
[2019-05-25] MEDS: HEPARIN SODIUM,PORCINE 5,000 UNIT/ML 1 ML VIAL SQ SCH ×3 (08:14→23:35)
[2019-05-25] MEDS: cloNIDine HCL 0.1 MG TAB PO SCH ×2 (08:14→19:51)
[2019-05-25] MEDS: ASPIRIN 81 MG PO SCH (08:14)
[2019-05-25] MEDS: methylPREDNISolone SOD SUCCI 40 MG/ML 1 ML VIAL IV SCH ×3 (08:15→23:35)
[2019-05-25] MEDS: OSELTAMIVIR 60 MG/10 ML ORAL SYRINGE PO SCH (08:15)
[2019-05-25] MEDS: FUROSEMIDE 10 MG/ML 4 ML VIAL IV SCH ×2 (08:15→19:51)
[2019-05-25] MEDS: GABAPENTIN 100 MG CAP PO SCH ×2 (08:15→19:52)
[2019-05-25] MEDS: LACTULOSE 20 GM/30 ML CUP PO SCH ×3 (08:15→21:18)
[2019-05-25] MEDS: IPRATROPIUM-ALBUTEROL 3 ML NEB INHALATION SCH ×4 (08:45→19:10)
[2019-05-25] MEDS: PIPERACILLIN-TAZOBACTAM 3.375 GM in SODIUM CHLORIDE 0.9% 100 ML IVPB SCH ×2 (09:00→19:52)
--- NOTE | 2019-05-25 11:02 | P.PN ---
Subjective Progress Note Date: 05/25/19 Principal diagnosis: Acute hypoxic respiratory failure secondary to acute congestive heart failure, possibly systolic, and possible right upper lobe pneumonia This is a 63-year-old white male, morbidly obese, known history of COPD, however not O2 dependent and not steroid dependent, history of previous cardiac arrest in 2016, type 2 diabetes, associated with that the attic nephropathy and chronic renal failure, hypertension and hypertensive nephrosclerosis, obstructive sleep apnea, maintained on CPAP at home, remote smoking history quit in 2009. Patient presented to the ER with 1 week history of shortness of breath cough and wheezing. He was also complaining of few pillows orthopnea, paroxysmal nocturnal dyspnea, he had no fever no chills no hemoptysis no chest pain. No nausea no vomiting no abdominal pain no melena no hematemesis. Upon arrival, patient was tachycardic, hypertensive with a blood pressure of 190/95. Chest x- ray showed evidence of pulmonary edema. Labs showed no evidence of leukocytosis, his ABG on 40% FiO2 showed a pO2 of 64 pCO2 of 32, pH of 7.36, Low bicarb of 19, anion gap of 17, BUN of 67 and creatinine of 3.94, elevated troponin of 2.17, and elevated BNP of 6890. He also tested positive for influenza type A. Patient was admitted, placed on BiPAP, placed on bronchodilators, steroids, Lasix drip, Tamiflu, empiric antibiotics, and this consult was initiated. Patient is not in the ICU, responding well to diuresis, feeling better breathing easier, however he remains on BiPAP at IPAP of 16 EPAP of 6 FiO2 of 50%. O2 saturation is 94%. Repeat labs this morning showed a blood sugar of 333, BUN is 83 creatinine 4.60 bicarb is 14 and anion gap of 20. Patient was reevaluated today on 05/23/2019, remains in the ICU, continues to h ave a good urine output on Lasix drip, renal functioning is getting a bit worse, hence the Lasix was discontinued. Chest x-ray continues to show interstitial edema and what seems to be a right upper lobe consolidation, possible pneumonia. Although the possibility of atypical pulmonary edema is not entirely ruled out. Patient is empirically on antibiotics including vancomycin and Zosyn. Pro-florentino citonin level was ordered. Patient is on 5 L nasal cannula. Electrolytes showed low potassium being corrected. Bicarb is 20. BUN is 99 creatinine is 5.49. Admission creatinine was 3.94, patient does have history of chronic stage III renal failure. Patient is feeling better breathing easier compared to how he felt on admission. He is on Tamiflu, diuretics which were discontinued this morning, and antibiotics. Hardly any cough, no wheezing, he does have shortness of breath. And maintained presently on 5 L nasal cannula. Patient was reevaluated today on 05/24/2019, remains in the intensive care unit, he is on high flow nasal cannula, O2 saturation is marginal, received a dose of Lasix earlier today, and last night he had an episode of increased shortness of breath, desaturation, coughing and wheezing, placed on BiPAP. Off BiPAP at 4:00 this morning. Has been off and on a high flow nasal cannula since 4 AM. His overall pulmonary status remains marginal. Chest x-ray this morning is pending. Presently the patient is feeling a bit better, however he did receive earlier 40 mg of Lasix IV push. Remains on broad-spectrum antibiotics, remains on bronchodilators, remains on steroids. CBC is relatively normal electrolytes showed low potassium of 3.1 renal functioning showed BUN of 111 creatinine 5.48. Similar to yesterday. Pro-calcitonin level is elevated, it is 1.11, hence we'll continue antibiotics. Reevaluated today on 05/25/2019, remains in the intensive care unit, remains on high flow nasal cannula, patient is feeling better clinically less shortness of breath, no cough no wheezing no fever no chills no hemoptysis. His chest x-ray is showing definite improvement in his interstitial edema and in his pneumonia. However it's not completely resolved. Patient remains on Lasix at 40 mg IV push twice a day. Definite improvement compared to the last few days clinically and radiographically. Objective - Vital Signs Vital signs: Vital Signs Temp 97.5 F L 05/25/19 08:00 Pulse 78 05/25/19 10:00 Resp 16 05/25/19 09:00 BP 156/82 05/25/19 10:00 Pulse Ox 94 L 05/25/19 10:00 Intake & Output 05/24/19 05/25/19 05/25/19 18:59 06:59 18:59 Intake Total 1090 540 530 Output Total 1140 710 620 Balance -50 -170 -90 Weight 102.9 kg Intake: IV 340 240 180 0.9 240 240 80 Piperacillin-Tazobactam 3 100 100 .375 gm In Sodium Chloride 0.9% 100 ml @ 25 mls/hr IVPB Q12HR [facility] Rx #:[id number] Intake, IV Titration 300 100 Amount Calcium Gluconate 1 gm In 100 Sodium Chloride 0.9% 100 ml @ 100 mls/hr IVPB ONCE ONE Rx#:[id number] Calcium Gluconate 2 gm In 100 Sodium Chloride 0.9% 100 ml @ 100 mls/hr IVPB ONCE ONE Rx#:[id number] Potassium Chloride 10 meq 200 In Water For Injection 1 100ml.bag @ 100 mls/hr IVPB Q1H [facility] Rx#: [id number] Oral 450 300 250 Output: Urine 1140 710 620 Other: Voiding Method Indwelling Catheter Indwelling Catheter Indwelling Catheter - Exam Physical Exam: Revealed a 63-year-old male on high flow nasal cannula in no dist ress. Head: Atraumatic, normocephalic. HEENT:[Neck is supple.] [No neck masses.] [No thyromegaly.] [No JVD.] Moist mucous membranes. Chest: [Crackles and rhonchi bilaterally especially at the right base Abdomen: Obese, [Soft, nontender, no megaly, no rebound, no guarding, normal bowel sounds.] Extremitie 1+ bipedal edema, no clubbing no cyanosis. Neurological Exam: Alert and oriented 3, no gross focal neurologic deficits. Skin: No rashes. Psychiatric: Normal mood affect and normal mental status examination. - Labs CBC & Chem 7: 05/25/19 04:44 05/25/19 04:44 Labs: Abnormal Lab Results - Last 24 Hours (Table) 05/24/19 05/24/19 05/24/19 Range/Units 11:52 16:53 20:26 WBC (3.8-10.6) k/uL RBC (4.30-5.90) m/uL Hgb (13.0-17.5) gm/dL Hct (39.0-53.0) % Neutrophils # (1.3-7.7) k/uL Lymphocytes # (1.0-4.8) k/uL BUN (9-20) mg/dL Creatinine (0.66-1.25) mg/dL Glucose (74-99) mg/dL POC Glucose (mg/dL) 248 H 306 H 294 H (75-99) mg/dL Calcium (8.4-10.2) mg/dL Ionized Calcium Khurram (4.5-5.3) mg/dL 05/25/19 05/25/19 05/25/19 Range/Units 04:44 04:44 06:19 WBC 11.2 H (3.8-10.6) k/uL RBC 3.96 L (4.30-5.90) m/uL Hgb 10.9 L (13.0-17.5) gm/dL Hct 33.4 L (39.0-53.0) % Neutrophils # 10.3 H (1.3-7.7) k/uL Lymphocytes # 0.2 L (1.0-4.8) k/uL BUN 112 H* (9-20) mg/dL Creatinine 5.36 H (0.66-1.25) mg/dL Glucose 225 H (74-99) mg/dL POC Glucose (mg/dL) (75-99) mg/dL Calcium 6.2 L* (8.4-10.2) mg/dL Ionized Calcium Khurram 3.5 L* (4.5-5.3) mg/dL 05/25/19 Range/Units 06:45 WBC (3.8-10.6) k/uL RBC (4.30-5.90) m/uL Hgb (13.0-17.5) gm/dL Hct (39.0-53.0) % Neutrophils # (1.3-7.7) k/uL Lymphocytes # (1.0-4.8) k/uL BUN (9-20) mg/dL Creatinine (0.66-1.25) mg/dL Glucose (74-99) mg/dL POC Glucose (mg/dL) 247 H (75-99) mg/dL Calcium (8.4-10.2) mg/dL Ionized Calcium Khurram (4.5-5.3) mg/dL Microbiology - Last 24 Hours (Table) 05/21/19 13:54 Blood Culture - Preliminary Blood No Growth after 72 hours Assessment and Plan Assessment: Impression: Acute hypoxic respiratory failure secondary to acute congestive heart failure, diastolic congestive heart failure. Echocardiogram showed Good LV function. Possible right upper lobe pneumonia, likely community-acquired, Pro-calcitonin level was 1.11 Hypertensive urgency, on presentation, remains on treatment for blood pressure. Acute influenza A infection. Continue Tamiflu. And continue droplet precautions. Acute exacerbation of COPD, continue bronchodilators and steroids. Type 2 diabetes, poorly controlled associated with diabetic nephropathy, previously diagnosed with kidney biopsy. Hypertensive nephrosclerosis and diabetic nephropathy Dyslipidemia Obstructive sleep apnea syndrome maintained normally on CPAP at home. Used last night because of desaturation and increased shortness of breath. Acute on chronic kidney injury. Recommendation: Pleased to see improvement on the chest x-ray today. Resume Lasix at 40 mg IV push every 12 hours. Continue bronchodilators and steroids. Continued antibiotics patient is presently on Zosyn, vancomycin was discontinued. Continue Tamiflu. Continue insulin Blood pressure medications to be continued. Continue insulin as per protocol. Use BiPAP as needed Renal functioning is being addressed by nephrology. GI and DVT prophylaxis. We will likely transfer out of the ICU in the next 24 hours.. Time with Patient: Less than 30
[2019-05-25 11:35] LABS: Glucose,Whole Blood 260 mg/dL (75-99)
--- NOTE | 2019-05-25 11:51 | PN ---
PROGRESS NOTE Julio César Panchal came in with what seems to be a hypoxic respiratory failure type picture. He also developed acute kidney injury. There is significantly low ionized calcium level. He is resting comfortably without symptoms. His troponin profile does not suggest a myocardial injury. Creatinine still is high at 5.6. He is not in any distress. Denies any chest pain. Vital signs stable. Rhythm appears to be sinus. Heart rate is about 104 beats per minute. Blood pressure is 130/70. HEENT is unremarkable. Fundus was not examined by me. Neck is supple. There is JVD of 1 cm. There is no carotid bruit, bruit heart exam reveals S1, S2 heard normally with a short systolic murmur at the base. Lungs revealed diminished air entry in bilateral lung neely. Abdomen is soft. Lower extremities reveal diminished pulses. Central nervous system grossly no focal deficits. IMPRESSION: 1. Acute kidney injury. 2. Hypertension. 3. Elevated troponin, not suggestive of myocardial injury. 4. History of accelerated hypertension. RECOMMENDATIONS: I am recommending that we give him supplement calcium gluconate in view of low ionized calcium. Await further input from Nephrology. Continue his current medications. I will add a small dose of beta von as long as the blood pressure is acceptable at 25 mg b.i.d. of metoprolol tartrate. From a cardiac standpoint, no intervention is necessary. Echo revealed fairly well preserved systolic function. We will continue to see him as needed. MMODL / IJN: [id number] /
--- NOTE | 2019-05-25 14:55 | P.PN ---
Subjective this is a pleasant 63 years old male with past medical history of COPD not on home oxygen or steroids, status post cardiac arrest in 2016 and he follows up with Dr. Saavedra materials mgmt tech, diabetes mellitus, hypertension, hyperlipidemia, sleep apnea on CPAP, previous smoker since 2009 he quit. to presents because of worsening dyspnea of one week duration associated with cough and white phlegm especially when he takes his inhaler. Associated with o rthopnea and paroxysmal nocturnal dyspnea but no chest pain. He denies abdominal pain, no headache, no vomiting, no change in urine or bowel habits. No fever vitals on admission showing tachycardia and high blood pressure 190/95. He was immediately placed on BiPAP. Labs showingunremarkable CBC and INR, sodium 132, potassium 3.4, creatinine is 3.9. Lactic acid 1.5, AST 75 and ALT 41.. Chest x-ray showing fluid overload. Patient was started on nitroglycerin drip and given 1 dose of Lasix 80 mg. further work up came back positive for influenza A and pt was started on Tamiflu,, troponin is elevated at 2.17, pt is admitted to ICU, with nitro drip and lasix drip, c/w BiPAP , consult critical care team, c/w asprin ,and steroid and bronchodilators and heparin prognosis is guarded given multiple and complex medical problems 05/22/2019 Patient remains in the ICU, he is currently on BiPAP patients with FiO2 -40%, which is lowered compared to last night. Patient is breathing is better and he says more than 50% improved. He still denies chest pain, no headache. No nausea vomiting. No sweating. Is still tachypneic with a preserved rate 30, other vitals are stable. CBC is stable. Sodium stable at 131, creatinine is worsened and 4.6. Renal ultrasound was unremarkable. His troponin is trending down from 2.1 down to 1.6. He remains on droplet isolation for positive for influenza A. Chest x-ray, per radiology showing some improvement in the right side with patchy consolidation of the left lower side. Chest x-ray reviewed by me showing significant improvement on radiation especially in the right side. Patient remains on Lasix drip at 10, no nitro drip. He remains on BiPAP machine. Cardiology input is appreciated, they recommended echocardiogram. Patient currently remains on Tamiflu, and steroids. Continue with aspirin. Nephrology consult is called. 05/23/2019 Patient is seen in the ICU. His breathing is improving with a air entry on auscultation. He is currently on high flow nasal cannula at 15 L/minutes. Patient can't really with no much difficulty. However patient had use BiPAP at night. He has mild leukocytosis of 11.6. Potassium was severely low at 2.6 and calcium 6.2. This will replaced. Hold Lasix drip for now for hypokalemia and high creatinine. Insulin drip was stopped and patient was started on insulin 70:30 mm going to follow-up glucose level and adjust dose accordingly. Also patient remains on insulin drip. He remains on Tamiflu on Zosyn, remains on IV steroids. And continue with hydralazine and clonidine with Norvasc and losartan for blood pressure control. Aspirin has been added. Labs showing worsening creatinine of 5.4. Chest x-ray: Pneumonia versus edema. However is improved from admission. Leukocytosis at 11.9 K. 05/24/2019 Patient is awake, his breathing is little better than yesterday however still on high flow oxygen at 15 L/m via nasal cannula. History is looks a bit tight and repeat chest x-ray is requested. Patient needs and BiPAP at night. He feels some nausea. He also is constipated and lactulose has been ordered. Vitals looks stable. Creatinine is stable at 5.4, potassium 3.2 and with calcium 6.0, sugars to 266-314. Increase his insulin to 40 units twice a day. He is currently on Lasix 40 mg twice daily however wanted to be increased, this on repeat chest x-ray. Patient is making good urine output and will follow up with real estate sales manager for possible need for hemodialysis. ProBNP is improving from 6890 down to 4600 05/25/2019 patient remains in the ICU. He feels better. He is requiring less oxygen on high flow cannula. He didn't need BiPAP at night. Vitas looks stable. we are replacing his calcium. Chest x-ray showing improvement and he is needing this Lasix. He has to bowel movement on lactulose and he is happy about that, he does not want to lower the dose of lactulose when asked today.other than That his sugar is better controlled although it's on the high side.we going to increase his insulin 55 units twice a day Review of systems CONSTITUTIONAL: No fever, no malaise, no fatigue. HEENT: No recent visual problems or hearing problems. Denied any sore throat. CARDIOVASCULAR: no palpitations, no syncope. PULMONARY: no hemoptysis. GASTROINTESTINAL: No diarrhea, no nausea, no vomiting, no abdominal pain. Normoactive bowel sounds. NEUROLOGICAL: No headaches, no weakness, no numbness. HEMATOLOGICAL: Denies any bleeding or petechiae. GENITOURINARY: Denies any burning micturition, frequency, or urgency. MUSCULOSKELETAL/RHEUMATOLOGICAL: Denies any joint pain, swelling, or any muscle pain. ENDOCRINE: Denies any polyuria or polydipsia. Active Medications Albuterol Sulfate (Ventolin Nebulized) 2.5 mg INHALATION RT-Q2H PRN PRN Reason: Shortness Of Breath Or Wheezing Albuterol/Ipratropium (Duoneb 0.5 Mg-3 Mg/3 Ml Soln) 3 ml INHALATION RT-Q4H PRN PRN Reason: Shortness Of Breath Or Wheezing Albuterol/Ipratropium (Duoneb 0.5 Mg-3 Mg/3 Ml Soln) 3 ml INHALATION RT-QID [facility] Last Admin: 05/25/19 12:23 Dose: 3 ml Documented by: Amlodipine Besylate (Norvasc) 10 mg PO DAILY [facility] Last Admin: 05/25/19 08:14 Dose: 10 mg Documented by: Aspirin (Aspirin) 81 mg PO DAILY [facility] Last Admin: 05/25/19 08:14 Dose: 81 mg Documented by: Clonidine (Catapres) 0.3 mg PO BID [facility] Last Admin: 05/25/19 08:14 Dose: 0.3 mg Documented by: Docusate Sodium (Colace) 100 mg PO BID PRN PRN Reason: Constipation Last Admin: 05/24/19 07:00 Dose: 100 mg Documented by: Furosemide (Lasix) 40 mg IV Q12HR [facility] Last Admin: 05/25/19 08:15 Dose: 40 mg Documented by: Gabapentin (Neurontin) 100 mg PO BID [facility] Last Admin: 05/25/19 08:15 Dose: 100 mg Documented by: Heparin Sodium (Porcine) (Heparin) 5,000 unit SQ Q8HR [facility] Last Admin: 05/25/19 08:14 Dose: 5,000 unit Documented by: Hydralazine HCl (Apresoline) 100 mg PO TID [facility] Last Admin: 05/25/19 08:14 Dose: 100 mg Documented by: Piperacillin Sod/Tazobactam (Sod 3.375 gm/ Sodium Chloride) 100 mls @ 25 mls/hr IVPB Q12HR [facility] Last Admin: 05/25/19 09:00 Dose: 25 mls/hr Documented by: Insulin Aspart (Novolog) 6 unit 0.06 unit/kg (6 unit) SQ AC-LUNCH [facility] Last Admin: 05/25/19 11:49 Dose: 6 unit Documented by: Insulin Aspart (Novolog) 0 unit SQ ACHS [facility]; Protocol Last Admin: 05/25/19 11:49 Dose: 4 unit Documented by: Insulin Human NPH (Humulin N) 6 unit 0.06 unit/kg (6 unit) SQ HS [facility] Last Admin: 05/24/19 20:30 Dose: 6 unit Documented by: Lactulose (Cephulac) 30 gm PO TID [facility] Last Admin: 05/25/19 14:13 Dose: Not Given Documented by: Magnesium Hydroxide (Milk Of Magnesia) 2,400 mg PO ONCE PRN PRN Reason: Constipation Last Admin: 05/23/19 19:00 Dose: 2,400 mg Documented by: Methocarbamol (Robaxin) 500 mg PO TID PRN PRN Reason: Mild Pain Last Admin: 05/24/19 07:15 Dose: 500 mg Documented by: Methylprednisolone Sodium Succinate (Solu-Medrol) 40 mg IV Q8HR [facility] Last Admin: 05/25/19 08:15 Dose: 40 mg Documented by: Ondansetron HCl (Zofran) 4 mg IVP Q6HR PRN PRN Reason: Nausea And Vomiting Pantoprazole Sodium (Protonix) 40 mg PO AC-BID [facility] Last Admin: 05/25/19 06:51 Dose: 40 mg Documented by: Objective - Vital Signs Vital signs: Vital Signs Temp 97.5 F L 05/25/19 12:00 Pulse 87 05/25/19 14:00 Resp 23 05/25/19 14:00 BP 153/72 05/25/19 14:00 Pulse Ox 93 L 05/25/19 14:00 Intake & Output 05/24/19 05/25/19 05/25/19 18:59 06:59 18:59 Intake Total 1090 540 910 Output Total 5127 132 2165 Balance -50 -170 -160 Weight 102.9 kg Intake: IV 340 240 260 0.9 240 240 160 Piperacillin-Tazobactam 3 100 100 .375 gm In Sodium Chloride 0.9% 100 ml @ 25 mls/hr IVPB Q12HR [facility] Rx #:[id number] Intake, IV Titration 300 100 Amount Calcium Gluconate 1 gm In 100 Sodium Chloride 0.9% 100 ml @ 100 mls/hr IVPB ONCE ONE Rx#:[id number] Calcium Gluconate 2 gm In 100 Sodium Chloride 0.9% 100 ml @ 100 mls/hr IVPB ONCE ONE Rx#:[id number] Potassium Chloride 10 meq 200 In Water For Injection 1 100ml.bag @ 100 mls/hr IVPB Q1H [facility] Rx#: [id number] Oral 450 300 550 Output: Urine 5197 973 0864 Other: Voiding Method Indwelling Catheter Indwelling Catheter Indwelling Catheter - Exam GENERAL: The patient is alert and oriented x3, not in any acute distress. Well developed, well nourished. HEENT: Pupils are round and equally reacting to light. EOMI. No scleral icterus. No conjunctival pallor. Normocephalic, atraumatic. No pharyngeal erythema. No thyromegaly. CARDIOVASCULAR: S1 and S2 present. No murmurs, rubs, or gallops. -PULMONARY: Chest is clear to auscultation, bilateral scattered wheezing with bilateral coarse crepitation ABDOMEN: Soft, nontender, nondistended, normoactive bowel sounds. No palpable organomegaly. MUSCULOSKELETAL: No joint swelling or deformity. -EXTREMITIES: No cyanosis, clubbing,. Bilateral leg edema, pitting NEUROLOGICAL: Gross neurological examination did not reveal any focal deficits. SKIN: No rashes. No petechiae - Labs CBC & Chem 7: 05/25/19 04:44 05/25/19 04:44 Labs: Abnormal Lab Results - Last 24 Hours (Table) 05/24/19 05/24/19 05/25/19 Range/Units 16:53 20:26 04:44 WBC (3.8-10.6) k/uL RBC (4.30-5.90) m/uL Hgb (13.0-17.5) gm/dL Hct (39.0-53.0) % Neutrophils # (1.3-7.7) k/uL Lymphocytes # (1.0-4.8) k/uL BUN 112 H* (9-20) mg/dL Creatinine 5.36 H (0.66-1.25) mg/dL Glucose 225 H (74-99) mg/dL POC Glucose (mg/dL) 306 H 294 H (75-99) mg/dL Calcium 6.2 L* (8.4-10.2) mg/dL Ionized Calcium Khurram (4.5-5.3) mg/dL 05/25/19 05/25/19 05/25/19 Range/Units 04:44 06:19 06:45 WBC 11.2 H (3.8-10.6) k/uL RBC 3.96 L (4.30-5.90) m/uL Hgb 10.9 L (13.0-17.5) gm/dL Hct 33.4 L (39.0-53.0) % Neutrophils # 10.3 H (1.3-7.7) k/uL Lymphocytes # 0.2 L (1.0-4.8) k/uL BUN (9-20) mg/dL Creatinine (0.66-1.25) mg/dL Glucose (74-99) mg/dL POC Glucose (mg/dL) 247 H (75-99) mg/dL Calcium (8.4-10.2) mg/dL Ionized Calcium Khurram 3.5 L* (4.5-5.3) mg/dL 05/25/19 Range/Units 11:33 WBC (3.8-10.6) k/uL RBC (4.30-5.90) m/uL Hgb (13.0-17.5) gm/dL Hct (39.0-53.0) % Neutrophils # (1.3-7.7) k/uL Lymphocytes # (1.0-4.8) k/uL BUN (9-20) mg/dL Creatinine (0.66-1.25) mg/dL Glucose (74-99) mg/dL POC Glucose (mg/dL) 260 H (75-99) mg/dL Calcium (8.4-10.2) mg/dL Ionized Calcium Khurram (4.5-5.3) mg/dL Microbiology - Last 24 Hours (Table) 05/21/19 13:54 Blood Culture - Preliminary Blood No Growth after 72 hours Assessment and Plan Assessment: acute pulmonary edema with acute congestive heart failure Hypertensive urgency, improved Influenza A infection possible acute COPD exacerbation acute hypoxic respiratory failure Acute kidney injury on chronic kidney disease CKD, stage III hypokalemia diabetes mellitus Hypertension Hyperlipidemia Sleep apnea on CPAP/BiPAP Plan: this is a pleasant 63 years old male who presents with acute renal failure and respiratory failure from fluid congestion of the lungs. Continue with oxygen via High flow nasal cannula. Following recommendation by real estate sales manager. Continue with Lasix. Follow-up recommendation by materials mgmt tech, real estate sales manager and casino runner. Continue with BiPAP as needed at night. Continue with high flow oxygen via nasal cannula. Continue with steroids and antibiotics. Continue wit h aspirin, and Labs and medication were reviewed.. Continue same treatment. Continue with symptomatic treatment. Resume home medication. Monitor lytes and vitals. DVT and GI prophylaxis. Further recommendations of the clinical course of the patient DVT prophylaxis: Subcutaneous heparin GI Prophylaxis: Pepcid PT/OT: Pending Prognosis is guarded
[2019-05-25 16:55] LABS: Glucose,Whole Blood 293 mg/dL (75-99)
[2019-05-25 20:00] LABS: Glucose,Whole Blood 405 mg/dL (75-99)
[2019-05-25] MEDS ORDERED: INSULIN REGULAR BOLUS (FROM DRIP BAG) IV PRN (20:05)
[2019-05-25] MEDS: INSULIN NPH 300 UNIT/3 ML VIAL SQ SCH (20:12)
[2019-05-25] MEDS: INSULIN REGULAR 100 UNIT in SODIUM CHLORIDE 0.9% 100 ML IV SCH ×2 (20:39→23:27)
[2019-05-25 20:55] LABS: Glucose,Whole Blood 399 mg/dL (75-99)
[2019-05-25 21:34] LABS: Glucose,Whole Blood 389 mg/dL (75-99)
[2019-05-25 22:05] LABS: Glucose,Whole Blood 328 mg/dL (75-99)
[2019-05-25 22:58] LABS: Glucose,Whole Blood 298 mg/dL (75-99)
[2019-05-26] LABS: Glucose,Whole Blood 249 mg/dL (75-99)
[2019-05-26 01:10] LABS: Glucose,Whole Blood 163 mg/dL (75-99)
[2019-05-26 02:01] LABS: Glucose,Whole Blood 100 mg/dL (75-99)
[2019-05-26 02:59] LABS: Glucose,Whole Blood 73 mg/dL (75-99)
[2019-05-26 04:06] LABS: Glucose,Whole Blood 65 mg/dL (75-99)
[2019-05-26] MEDS ORDERED: DEXTROSE 10 % IN WATER 250 ML IV ONE (04:08)
[2019-05-26 04:34] LABS: Glucose,Whole Blood 155 mg/dL (75-99)
[2019-05-26 04:56] LABS: Glucose,Whole Blood 127 mg/dL (75-99)
[2019-05-26 05:59] LABS: Glucose,Whole Blood 113 mg/dL (75-99)
[2019-05-26 06:03] LABS: Basophils % (A) 0 %; Eosinophils % (A) 0 %; HCT 31.5 % (39.0-53.0); HGB 10.5 gm/dL (13.0-17.5); Lymphocytes # (A) 0.2 k/uL (1.0-4.8); Lymphocytes % (A) 2 %; MCH 27.9 pg (25.0-35.0); MCHC 33.4 g/dL (31.0-37.0); MCV 83.4 fL (80.0-100.0); Mean Platelet Volume 7.1; Monocytes # (A) 0.7 k/uL (0-1.0); Monocytes % (A) 6 %; Neutrophils # (A) 9.7 k/uL (1.3-7.7); Neutrophils % (A) 90 %; Platelet Count 322 k/uL (150-450); RBC 3.77 m/uL (4.30-5.90); RDW 13.5 % (11.5-15.5); WBC 10.8 k/uL (3.8-10.6)
[2019-05-26 06:12] LABS: Ionized Calcium 3.7 mg/dL (4.5-5.3)
[2019-05-26 06:16] LABS: Potassium 3.6 mmol/L (3.5-5.1)
[2019-05-26 06:40] LABS: Calcium 6.3 mg/dL (8.4-10.2)
[2019-05-26] MEDS: PANTOPRAZOLE 40 MG TABLET PO SCH ×2 (06:53→17:12)
[2019-05-26 06:56] LABS: Glucose,Whole Blood 108 mg/dL (75-99)
[2019-05-26] MEDS: IPRATROPIUM-ALBUTEROL 3 ML NEB INHALATION SCH ×4 (07:20→19:03)
[2019-05-26] MEDS ORDERED: INSULN ASP PRT/INSULIN ASPART 100 UNIT/ML 10 ML VIAL SQ SCH (07:30)
--- NOTE | 2019-05-26 07:38 | XR ---
EXAMINATION TYPE: XR chest 1V portable DATE OF EXAM: 05/26/2019 COMPARISON: 05/25/2019 HISTORY: Shortness of breath TECHNIQUE: Single frontal view of the chest is obtained. FINDINGS: Persistent multifocal airspace opacities right mid lung laterally and medial right basilar region along with left lower lung, improved left midlung opacity from most recent prior. No new pleu ral effusion or pneumothorax. Cardiac silhouettes are stable and mildly enlarged. Old fracture deform ity left clavicle less well seen. IMPRESSION: 1. Persistent multifocal airspace disease most noted in the right upper lobe. Differential diagnosis includes pneumonia. Follow-up to resolution to exclude underlying neoplastic process
[2019-05-26 08:12] LABS: Glucose,Whole Blood 150 mg/dL (75-99)
[2019-05-26] MEDS: LACTULOSE 20 GM/30 ML CUP PO SCH (08:48)
[2019-05-26] MEDS: cloNIDine HCL 0.1 MG TAB PO SCH ×2 (08:50→21:53)
[2019-05-26] MEDS: HEPARIN SODIUM,PORCINE 5,000 UNIT/ML 1 ML VIAL SQ SCH ×2 (08:52→16:02)
[2019-05-26] MEDS: methylPREDNISolone SOD SUCCI 40 MG/ML 1 ML VIAL IV SCH ×2 (08:53→16:02)
[2019-05-26] MEDS: hydrALAZINE HCL 50 MG TAB PO SCH ×3 (08:54→21:53)
[2019-05-26] MEDS: METOPROLOL TARTRATE 25 MG TAB PO SCH ×3 (08:55→21:53)
[2019-05-26] MEDS: FUROSEMIDE 10 MG/ML 4 ML VIAL IV SCH ×2 (08:55→21:56)
[2019-05-26] MEDS: amLODIPine 10 MG TAB PO SCH (08:55)
[2019-05-26] MEDS: PIPERACILLIN-TAZOBACTAM 3.375 GM in SODIUM CHLORIDE 0.9% 100 ML IVPB SCH ×2 (08:55→21:54)
[2019-05-26] MEDS: ASPIRIN 81 MG PO SCH (08:55)
[2019-05-26] MEDS: GABAPENTIN 100 MG CAP PO SCH ×2 (08:56→21:53)
[2019-05-26] MEDS ORDERED: LACTULOSE 20 GM/30 ML CUP PO PRN (09:00)
--- NOTE | 2019-05-26 09:11 | P.PN ---
Subjective Patient is seen in follow-up for acute kidney injury on chronic kidney disease. Renal function is improving. Patient is nonoliguric. Currently maintained on Lasix 40 mg IV twice daily. Currently on 6 L nasal cannula. Oral intake is good. Vital signs are stable. General: The patient appeared well nourished and normally developed. HEENT: Head exam is unremarkable. Neck is without jugular venous distension. LUNGS: Breath sounds decreased. HEART: Rate and Rhythm are regular. First and second heart sounds normal. No murmurs, rubs or gallops. ABDOMEN: Abdominal exam reveals normal bowel sounds. Non-tender and non- distended. No evidence of peritonitis. EXTREMITITES: No clubbing, cyanosis, or edema. Objective - Vital Signs Vital signs: Vital Signs Temp 98.2 F 05/26/19 08:00 Pulse 90 05/26/19 08:00 Resp 17 05/26/19 08:00 BP 151/53 05/26/19 08:00 Pulse Ox 95 05/26/19 08:00 Intake & Output 05/25/19 05/26/19 05/26/19 18:59 06:59 18:59 Intake Total 1490 1597.223 20 Output Total 1420 1175 250 Balance 70 422.223 -230 Weight 105.2 kg Intake: IV 340 360 20 0.9 240 260 20 Piperacillin-Tazobactam 3 100 100 .375 gm In Sodium Chloride 0.9% 100 ml @ 25 mls/hr IVPB Q12HR [facility] Rx #:[id number] Intake, IV Titration 100 317.223 Amount Calcium Gluconate 2 gm In 100 Sodium Chloride 0.9% 100 ml @ 100 mls/hr IVPB ONCE ONE Rx#:[id number] Dextrose 10 % in Water 150 250 ml @ 999 mls/hr IV ONCE ONE Rx#:[id number] Insulin Regular 100 unit 167.223 In Sodium Chloride 0.9% 100 ml @ Per Protocol IV .Q0M [facility] Rx#:[id number] Oral 1050 920 Output: Urine 1420 1175 250 Other: Voiding Method Indwelling Catheter Indwelling Catheter # Bowel Movements 3 - Labs CBC & Chem 7: 05/26/19 05:29 05/26/19 05:29 Labs: Abnormal Lab Results - Last 24 Hours (Table) 05/25/19 05/25/19 05/25/19 Range/Units 11:33 16:48 19:58 WBC (3.8-10.6) k/uL RBC (4.30-5.90) m/uL Hgb (13.0-17.5) gm/dL Hct (39.0-53.0) % Neutrophils # (1.3-7.7) k/uL Lymphocytes # (1.0-4.8) k/uL BUN (9-20) mg/dL Creatinine (0.66-1.25) mg/dL Glucose (74-99) mg/dL POC Glucose (mg/dL) 260 H 293 H 405 H (75-99) mg/dL Calcium (8.4-10.2) mg/dL 05/25/19 05/25/19 05/25/19 Range/Units 20:54 21:32 22:04 WBC (3.8-10.6) k/uL RBC (4.30-5.90) m/uL Hgb (13.0-17.5) gm/dL Hct (39.0-53.0) % Neutrophils # (1.3-7.7) k/uL Lymphocytes # (1.0-4.8) k/uL BUN (9-20) mg/dL Creatinine (0.66-1.25) mg/dL Glucose (74-99) mg/dL POC Glucose (mg/dL) 399 H 389 H 328 H (75-99) mg/dL Calcium (8.4-10.2) mg/dL 05/25/19 05/25/19 05/26/19 Range/Units 22:57 23:59 01:09 WBC (3.8-10.6) k/uL RBC (4.30-5.90) m/uL Hgb (13.0-17.5) gm/dL Hct (39.0-53.0) % Neutrophils # (1.3-7.7) k/uL Lymphocytes # (1.0-4.8) k/uL BUN (9-20) mg/dL Creatinine (0.66-1.25) mg/dL Glucose (74-99) mg/dL POC Glucose (mg/dL) 298 H 249 H 163 H (75-99) mg/dL Calcium (8.4-10.2) mg/dL 05/26/19 05/26/19 05/26/19 Range/Units 02:00 02:58 04:04 WBC (3.8-10.6) k/uL RBC (4.30-5.90) m/uL Hgb (13.0-17.5) gm/dL Hct (39.0-53.0) % Neutrophils # (1.3-7.7) k/uL Lymphocytes # (1.0-4.8) k/uL BUN (9-20) mg/dL Creatinine (0.66-1.25) mg/dL Glucose (74-99) mg/dL POC Glucose (mg/dL) 100 H 73 L 65 L (75-99) mg/dL Calcium (8.4-10.2) mg/dL 05/26/19 05/26/19 05/26/19 Range/Units 04:32 04:54 05:29 WBC (3.8-10.6) k/uL RBC (4.30-5.90) m/uL Hgb (13.0-17.5) gm/dL Hct (39.0-53.0) % Neutrophils # (1.3-7.7) k/uL Lymphocytes # (1.0-4.8) k/uL BUN 104 H* (9-20) mg/dL Creatinine 4.74 H (0.66-1.25) mg/dL Glucose 108 H (74-99) mg/dL POC Glucose (mg/dL) 155 H 127 H (75-99) mg/dL Calcium 6.3 L* (8.4-10.2) mg/dL 05/26/19 05/26/19 05/26/19 Range/Units 05:29 05:58 06:56 WBC 10.8 H (3.8-10.6) k/uL RBC 3.77 L (4.30-5.90) m/uL Hgb 10.5 L (13.0-17.5) gm/dL Hct 31.5 L (39.0-53.0) % Neutrophils # 9.7 H (1.3-7.7) k/uL Lymphocytes # 0.2 L (1.0-4.8) k/uL BUN (9-20) mg/dL Creatinine (0.66-1.25) mg/dL Glucose (74-99) mg/dL POC Glucose (mg/dL) 113 H 108 H (75-99) mg/dL Calcium (8.4-10.2) mg/dL 05/26/19 Range/Units 08:10 WBC (3.8-10.6) k/uL RBC (4.30-5.90) m/uL Hgb (13.0-17.5) gm/dL Hct (39.0-53.0) % Neutrophils # (1.3-7.7) k/uL Lymphocytes # (1.0-4.8) k/uL BUN (9-20) mg/dL Creatinine (0.66-1.25) mg/dL Glucose (74-99) mg/dL POC Glucose (mg/dL) 150 H (75-99) mg/dL Calcium (8.4-10.2) mg/dL Microbiology - Last 24 Hours (Table) 05/21/19 13:54 Blood Culture - Preliminary Blood No Growth after 96 hours Assessment and Plan Plan: Assessment: 1. Acute kidney injury secondary to ATN secondary to infection. Also component of cardiorenal syndrome. Renal function better. Creatinine 4.74 today. Elevated BUN which is due to renal failure as well as IV steroids. 2. Chronic kidney disease stage III. Baseline creatinine 1.5-1.6. Etiology is diabetic kidney disease. 3. Influenza A maintained on Tamiflu. 4. Acute on chronic diastolic CHF. 5. Volume overload maintain IV Lasix. Better. 6. Hypocalcemia secondary to acute kidney injury. 7. Hypokalemia secondary to diuresis. 8. Hypertension with chronic kidney disease. 9. Insulin-dependent diabetes mellitus. Plan: Maintain IV Lasix 40 mg twice daily. Wean FiO2. Replace calcium. Continue to monitor renal function and urine output. Repeat electrolytes, including magnesium level, in the morning.
[2019-05-26] MEDS ORDERED: CALCIUM GLUCONATE 1 GM in SODIUM CHLORIDE 0.9% 100 ML IVPB ONE ×2 (10:30→11:30)
--- NOTE | 2019-05-26 11:01 | P.PN ---
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 Patient presented to the ER with 1 week history of shortness of breath cough and wheezing. He was also complaining of few pillows orthopnea, paroxysmal nocturnal dyspnea, he had no fever no chills no hemoptysis no chest pain. No nausea no vomiting no abdominal pain no melena no hematemesis. Upon arrival, patient was tachycardic, hypertensive with a blood pressure of 190/95. Chest x- ray showed evidence of pulmonary edema. Labs showed no evidence of leukocytosis, his ABG on 40% FiO2 showed a pO2 of 64 pCO2 of 32, pH of 7.36, Low bicarb of 19, anion gap of 17, BUN of 67 and creatinine of 3.94, elevated troponin of 2.17, and elevated BNP of 6890. He also tested positive for influenza type A. Patient was admitted, placed on BiPAP, placed on bronchodilators, steroids, Lasix drip, Tamiflu, empiric antibiotics, and this consult was initiated. Patient is not in the ICU, responding well to diuresis, feeling better breathing easier, however he remains on BiPAP at IPAP of 16 EPAP of 6 FiO2 of 50%. O2 saturation is 94%. Repeat labs this morning showed a blood sugar of 333, BUN is 83 creatinine 4.60 bicarb is 14 and anion gap of 20. Patient was reevaluated today on 05/23/2019, remains in the ICU, continues to h ave a good urine output on Lasix drip, renal functioning is getting a bit worse, hence the Lasix was discontinued. Chest x-ray continues to show interstitial edema and what seems to be a right upper lobe consolidation, possible pneumonia. Although the possibility of atypical pulmonary edema is not entirely ruled out. Patient is empirically on antibiotics including vancomycin and Zosyn. Pro-florentino citonin level was ordered. Patient is on 5 L nasal cannula. Electrolytes showed low potassium being corrected. Bicarb is 20. BUN is 99 creatinine is 5.49. Admission creatinine was 3.94, patient does have history of chronic stage III renal failure. Patient is feeling better breathing easier compared to how he felt on admission. He is on Tamiflu, diuretics which were discontinued this morning, and antibiotics. Hardly any cough, no wheezing, he does have shortness of breath. And maintained presently on 5 L nasal cannula. Patient was reevaluated today on 05/24/2019, remains in the intensive care unit, he is on high flow nasal cannula, O2 saturation is marginal, received a dose of Lasix earlier today, and last night he had an episode of increased shortness of breath, desaturation, coughing and wheezing, placed on BiPAP. Off BiPAP at 4:00 this morning. Has been off and on a high flow nasal cannula since 4 AM. His overall pulmonary status remains marginal. Chest x-ray this morning is pending. Presently the patient is feeling a bit better, however he did receive earlier 40 mg of Lasix IV push. Remains on broad-spectrum antibiotics, remains on bronchodilators, remains on steroids. CBC is relatively normal electrolytes showed low potassium of 3.1 renal functioning showed BUN of 111 creatinine 5.48. Similar to yesterday. Pro-calcitonin level is elevated, it is 1.11, hence we'll continue antibiotics. Reevaluated today on 05/25/2019, remains in the intensive care unit, remains on high flow nasal cannula, patient is feeling better clinically less shortness of breath, no cough no wheezing no fever no chills no hemoptysis. His chest x-ray is showing definite improvement in his interstitial edema and in his pneumonia. However it's not completely resolved. Patient remains on Lasix at 40 mg IV push twice a day. Definite improvement compared to the last few days clinically and radiographically. Reevaluated today on 05/26/2019, patient continues to respond well to treatment with diuretics and antibiotics for congestive heart failure and for what seems to be a right upper lobe pneumonia. He is down to 6 L nasal cannula, remains on Lasix at 40 mg IV push every 12 hours. No major issues overnight. Chest x-ray was reviewed, continues to have significant amount of interstitial edema and right upper lobe infiltrate. Hence we'll continue present treatment, and I plan to transfer the patient out of the ICU to a monitor bed on the floor or possibly selective bed. WBC count is 10.8 hemoglobin is 10.5 twice are normal BUN is a bit down 104 creatinine is also a bit down 4.74 compared to yesterday. Objective - Vital Signs Vital signs: Vital Signs Temp 98.2 F 05/26/19 08:00 Pulse 90 05/26/19 08:00 Resp 17 05/26/19 08:00 BP 151/53 05/26/19 08:00 Pulse Ox 95 05/26/19 08:00 Intake & Output 05/25/19 05/26/19 05/26/19 18:59 06:59 18:59 Intake Total 1490 1597.223 20 Output Total 1420 1175 250 Balance 70 422.223 -230 Weight 105.2 kg Intake: IV 340 360 20 0.9 240 260 20 Piperacillin-Tazobactam 3 100 100 .375 gm In Sodium Chloride 0.9% 100 ml @ 25 mls/hr IVPB Q12HR [facility] Rx #:[id number] Intake, IV Titration 100 317.223 Amount Calcium Gluconate 2 gm In 100 Sodium Chloride 0.9% 100 ml @ 100 mls/hr IVPB ONCE ONE Rx#:[id number] Dextrose 10 % in Water 150 250 ml @ 999 mls/hr IV ONCE ONE Rx#:[id number] Insulin Regular 100 unit 167.223 In Sodium Chloride 0.9% 100 ml @ Per Protocol IV .Q0M [facility] Rx#:[id number] Oral 1050 920 Output: Urine 1420 1175 250 Other: Voiding Method Indwelling Catheter Indwelling Catheter Indwelling Catheter # Bowel Movements 3 - Exam Physical Exam: Revealed a 63-year-old male on 6 L nasal cannula Head: Atraumatic, normocephalic. HEENT:[Neck is supple.] [No neck masses.] [No thyromegaly.] [No JVD.] Moist mucous membranes. Chest: [Crackles and rhonchi bilaterally especially at the right base Abdomen: Obese, [Soft, nontender, no megaly, no rebound, no guarding, normal bowel sounds.] Extremitie 1+ bipedal edema, no clubbing no cyanosis. Neurological Exam: Alert and oriented 3, no gross focal neurologic deficits. Skin: No rashes. No petechiae. Psychiatric: Normal mood affect and normal mental status examination. Lymphatics: No lymphadenopathy. - Labs CBC & Chem 7: 05/26/19 05:29 05/26/19 05:29 Labs: Abnormal Lab Results - Last 24 Hours (Table) 05/25/19 05/25/19 05/25/19 Range/Units 11:33 16:48 19:58 WBC (3.8-10.6) k/uL RBC (4.30-5.90) m/uL Hgb (13.0-17.5) gm/dL Hct (39.0-53.0) % Neutrophils # (1.3-7.7) k/uL Lymphocytes # (1.0-4.8) k/uL BUN (9-20) mg/dL Creatinine (0.66-1.25) mg/dL Glucose (74-99) mg/dL POC Glucose (mg/dL) 260 H 293 H 405 H (75-99) mg/dL Calcium (8.4-10.2) mg/dL Ionized Calcium Khurram (4.5-5.3) mg/dL 05/25/19 05/25/19 05/25/19 Range/Units 20:54 21:32 22:04 WBC (3.8-10.6) k/uL RBC (4.30-5.90) m/uL Hgb (13.0-17.5) gm/dL Hct (39.0-53.0) % Neutrophils # (1.3-7.7) k/uL Lymphocytes # (1.0-4.8) k/uL BUN (9-20) mg/dL Creatinine (0.66-1.25) mg/dL Glucose (74-99) mg/dL POC Glucose (mg/dL) 399 H 389 H 328 H (75-99) mg/dL Calcium (8.4-10.2) mg/dL Ionized Calcium Khurram (4.5-5.3) mg/dL 05/25/19 05/25/19 05/26/19 Range/Units 22:57 23:59 01:09 WBC (3.8-10.6) k/uL RBC (4.30-5.90) m/uL Hgb (13.0-17.5) gm/dL Hct (39.0-53.0) % Neutrophils # (1.3-7.7) k/uL Lymphocytes # (1.0-4.8) k/uL BUN (9-20) mg/dL Creatinine (0.66-1.25) mg/dL Glucose (74-99) mg/dL POC Glucose (mg/dL) 298 H 249 H 163 H (75-99) mg/dL Calcium (8.4-10.2) mg/dL Ionized Calcium Khurram (4.5-5.3) mg/dL 05/26/19 05/26/19 05/26/19 Range/Units 02:00 02:58 04:04 WBC (3.8-10.6) k/uL RBC (4.30-5.90) m/uL Hgb (13.0-17.5) gm/dL Hct (39.0-53.0) % Neutrophils # (1.3-7.7) k/uL Lymphocytes # (1.0-4.8) k/uL BUN (9-20) mg/dL Creatinine (0.66-1.25) mg/dL Glucose (74-99) mg/dL POC Glucose (mg/dL) 100 H 73 L 65 L (75-99) mg/dL Calcium (8.4-10.2) mg/dL Ionized Calcium Khurram (4.5-5.3) mg/dL 05/26/19 05/26/19 05/26/19 Range/Units 04:32 04:54 05:29 WBC (3.8-10.6) k/uL RBC (4.30-5.90) m/uL Hgb (13.0-17.5) gm/dL Hct (39.0-53.0) % Neutrophils # (1.3-7.7) k/uL Lymphocytes # (1.0-4.8) k/uL BUN 104 H* (9-20) mg/dL Creatinine 4.74 H (0.66-1.25) mg/dL Glucose 108 H (74-99) mg/dL POC Glucose (mg/dL) 155 H 127 H (75-99) mg/dL Calcium 6.3 L* (8.4-10.2) mg/dL Ionized Calcium Khurram 3.7 L (4.5-5.3) mg/dL 05/26/19 05/26/19 05/26/19 Range/Units 05:29 05:58 06:56 WBC 10.8 H (3.8-10.6) k/uL RBC 3.77 L (4.30-5.90) m/uL Hgb 10.5 L (13.0-17.5) gm/dL Hct 31.5 L (39.0-53.0) % Neutrophils # 9.7 H (1.3-7.7) k/uL Lymphocytes # 0.2 L (1.0-4.8) k/uL BUN (9-20) mg/dL Creatinine (0.66-1.25) mg/dL Glucose (74-99) mg/dL POC Glucose (mg/dL) 113 H 108 H (75-99) mg/dL Calcium (8.4-10.2) mg/dL Ionized Calcium Khurram (4.5-5.3) mg/dL 05/26/19 Range/Units 08:10 WBC (3.8-10.6) k/uL RBC (4.30-5.90) m/uL Hgb (13.0-17.5) gm/dL Hct (39.0-53.0) % Neutrophils # (1.3-7.7) k/uL Lymphocytes # (1.0-4.8) k/uL BUN (9-20) mg/dL Creatinine (0.66-1.25) mg/dL Glucose (74-99) mg/dL POC Glucose (mg/dL) 150 H (75-99) mg/dL Calcium (8.4-10.2) mg/dL Ionized Calcium Khurram (4.5-5.3) mg/dL Microbiology - Last 24 Hours (Table) 05/21/19 13:54 Blood Culture - Preliminary Blood No Growth after 96 hours Assessment and Plan Assessment: Impression: Acute hypoxic respiratory failure secondary to acute congestive heart failure, diastolic congestive heart failure. Echocardiogram showed Good LV function. Possible right upper lobe pneumonia, likely community-acquired, Pro-calcitonin level was 1.11 Hypertensive urgency, on presentation, remains on treatment for blood pressure. Acute influenza A infection. Continue Tamiflu. And continue droplet precautions. Acute exacerbation of COPD, continue bronchodilators and steroids. Type 2 diabetes, poorly controlled associated with diabetic nephropathy, previously diagnosed with kidney biopsy. Hypertensive nephrosclerosis and diabetic nephropathy Dyslipidemia Obstructive sleep apnea syndrome maintained normally on CPAP at home. Used last night because of desaturation and increased shortness of breath. Acute on chronic kidney injury. Recommendation: Resume Lasix at 40 mg IV push every 12 hours. Continue bronchodilators and steroids. Continued antibiotics patient is presently on Zosyn, vancomycin was discontinued. Continue Tamiflu. Continue insulin Continue blood pressure medications. Continue insulin as per protocol. Use BiPAP only if needed. Renal functioning is slightly improved compared to yesterday, closely monitored by nephrology. GI and DVT prophylaxis. Transfer patient out of the ICU today, and we'll continue to follow. Time with Patient: Less than 30
[2019-05-26 11:29] LABS: Glucose,Whole Blood 253 mg/dL (75-99)
[2019-05-26] MEDS: INSULIN ASPART (NovoLOG) 100 UNIT/ML VIAL SQ SCH ×4 (12:04→20:43)
--- NOTE | 2019-05-26 14:42 | PN ---
PROGRESS NOTE This gentleman has what seems to be an acute kidney injury on top of his other medical problems. However, he is maintaining sinus rhythm. He appears to be hemodynamically stable. His breathing is also much better today. Denies any chest discomfort. Creatinine remains high, but he is making some urine. Vital signs stable. S1-S2 heard normally. Short systolic murmur is audible. Lungs reveal improved air entry. Abdomen and lower extremity exam is unchanged. From a cardiac standpoint, I would recommend that we add a small dose of metoprolol tartrate 25 mg b.i.d. as long as the blood pressure is acceptable. No other issues from cardiac standpoint. I will see the patient as needed. MMODL / IJN: [id number] /
--- NOTE | 2019-05-26 15:10 | P.PN ---
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 to presents because of worsening dyspnea of one week duration associated with cough and white phlegm especially when he takes his inhaler. Associated with o rthopnea and paroxysmal nocturnal dyspnea but no chest pain. He denies abdominal pain, no headache, no vomiting, no change in urine or bowel habits. No fever vitals on admission showing tachycardia and high blood pressure 190/95. He was immediately placed on BiPAP. Labs showingunremarkable CBC and INR, sodium 132, potassium 3.4, creatinine is 3.9. Lactic acid 1.5, AST 75 and ALT 41.. Chest x-ray showing fluid overload. Patient was started on nitroglycerin drip and given 1 dose of Lasix 80 mg. further work up came back positive for influenza A and pt was started on Tamiflu,, troponin is elevated at 2.17, pt is admitted to ICU, with nitro drip and lasix drip, c/w BiPAP , consult critical care team, c/w asprin ,and steroid and bronchodilators and heparin prognosis is guarded given multiple and complex medical problems 05/22/2019 Patient remains in the ICU, he is currently on BiPAP patients with FiO2 -40%, which is lowered compared to last night. Patient is breathing is better and he says more than 50% improved. He still denies chest pain, no headache. No nausea vomiting. No sweating. Is still tachypneic with a preserved rate 30, other vitals are stable. CBC is stable. Sodium stable at 131, creatinine is worsened and 4.6. Renal ultrasound was unremarkable. His troponin is trending down from 2.1 down to 1.6. He remains on droplet isolation for positive for influenza A. Chest x-ray, per radiology showing some improvement in the right side with patchy consolidation of the left lower side. Chest x-ray reviewed by me showing significant improvement on radiation especially in the right side. Patient remains on Lasix drip at 10, no nitro drip. He remains on BiPAP machine. Cardiology input is appreciated, they recommended echocardiogram. Patient currently remains on Tamiflu, and steroids. Continue with aspirin. Nephrology consult is called. 05/23/2019 Patient is seen in the ICU. His breathing is improving with a air entry on auscultation. He is currently on high flow nasal cannula at 15 L/minutes. Patient can't really with no much difficulty. However patient had use BiPAP at night. He has mild leukocytosis of 11.6. Potassium was severely low at 2.6 and calcium 6.2. This will replaced. Hold Lasix drip for now for hypokalemia and high creatinine. Insulin drip was stopped and patient was started on insulin 70:30 mm going to follow-up glucose level and adjust dose accordingly. Also patient remains on insulin drip. He remains on Tamiflu on Zosyn, remains on IV steroids. And continue with hydralazine and clonidine with Norvasc and losartan for blood pressure control. Aspirin has been added. Labs showing worsening creatinine of 5.4. Chest x-ray: Pneumonia versus edema. However is improved from admission. Leukocytosis at 11.9 K. 05/24/2019 Patient is awake, his breathing is little better than yesterday however still on high flow oxygen at 15 L/m via nasal cannula. History is looks a bit tight and repeat chest x-ray is requested. Patient needs and BiPAP at night. He feels some nausea. He also is constipated and lactulose has been ordered. Vitals looks stable. Creatinine is stable at 5.4, potassium 3.2 and with calcium 6.0, sugars to 266-314. Increase his insulin to 40 units twice a day. He is currently on Lasix 40 mg twice daily however wanted to be increased, this on repeat chest x-ray. Patient is making good urine output and will follow up with supervisory it specialist for possible need for hemodialysis. ProBNP is improving from 6890 down to 4600 05/25/2019 patient remains in the ICU. He feels better. He is requiring less oxygen on high flow cannula. He didn't need BiPAP at night. Vitas looks stable. we are replacing his calcium. Chest x-ray showing improvement and he is needing this Lasix. He has to bowel movement on lactulose and he is happy about that, he does not want to lower the dose of lactulose when asked today.other than That his sugar is better controlled although it's on the high side.we going to increase his insulin 55 units twice a day 05/26/2019 would be downgraded today to the select unit . His breathing is significantly improved and his breathing more easily now. No chest pain. He has bowel movement. Vitas looks stable. Labs reviewed with improvement in the WBC down to 10.8. Creatinine 4.7. Low calcium is been replaced. Tamiflu has been discontinued. Chest x-ray from today showing stable airspace disease Objective - Vital Signs Vital signs: Vital Signs Temp 98.2 F 05/26/19 08:00 Pulse 84 05/26/19 12:00 Resp 14 05/26/19 12:00 BP 146/69 05/26/19 12:00 Pulse Ox 96 05/26/19 12:00 Intake & Output 05/25/19 05/26/19 05/26/19 18:59 06:59 18:59 Intake Total 1490 1597.223 640 Output Total 1420 1175 1100 Balance 70 422.223 -460 Weight 105.2 kg Intake: IV 340 360 40 0.9 240 260 40 Piperacillin-Tazobactam 3 100 100 .375 gm In Sodium Chloride 0.9% 100 ml @ 25 mls/hr IVPB Q12HR [facility] Rx #:[id number] Intake, IV Titration 100 317.223 200 Amount Calcium Gluconate 1 gm In 100 Sodium Chloride 0.9% 100 ml @ 100 mls/hr IVPB ONCE ONE Rx#:[id number] Calcium Gluconate 1 gm In 100 Sodium Chloride 0.9% 100 ml @ 100 mls/hr IVPB ONCE ONE Rx#:[id number] Calcium Gluconate 2 gm In 100 Sodium Chloride 0.9% 100 ml @ 100 mls/hr IVPB ONCE ONE Rx#:[id number] Dextrose 10 % in Water 150 250 ml @ 999 mls/hr IV ONCE ONE Rx#:[id number] Insulin Regular 100 unit 167.223 In Sodium Chloride 0.9% 100 ml @ Per Protocol IV .Q0M [facility] Rx#:[id number] Oral 1050 920 400 Output: Urine 1420 1175 1100 Other: Voiding Method Indwelling Catheter Indwelling Catheter Indwelling Catheter # Bowel Movements 3 - Exam GENERAL: The patient is alert and oriented x3, not in any acute distress. Well developed, well nourished. HEENT: Pupils are round and equally reacting to light. EOMI. No scleral icterus. No conjunctival pallor. Normocephalic, atraumatic. No pharyngeal erythema. No thyromegaly. CARDIOVASCULAR: S1 and S2 present. No murmurs, rubs, or gallops. -PULMONARY: Chest is clear to auscultation, bilateral scattered wheezing with bilateral coarse crepitation ABDOMEN: Soft, nontender, nondistended, normoactive bowel sounds. No palpable organomegaly. MUSCULOSKELETAL: No joint swelling or deformity. -EXTREMITIES: No cyanosis, clubbing,. Bilateral leg edema, pitting NEUROLOGICAL: Gross neurological examination did not reveal any focal deficits. SKIN: No rashes. No petechiae - Labs CBC & Chem 7: 05/26/19 05:29 05/26/19 05:29 Labs: Abnormal Lab Results - Last 24 Hours (Table) 05/25/19 05/25/19 05/25/19 Range/Units 16:48 19:58 20:54 WBC (3.8-10.6) k/uL RBC (4.30-5.90) m/uL Hgb (13.0-17.5) gm/dL Hct (39.0-53.0) % Neutrophils # (1.3-7.7) k/uL Lymphocytes # (1.0-4.8) k/uL BUN (9-20) mg/dL Creatinine (0.66-1.25) mg/dL Glucose (74-99) mg/dL POC Glucose (mg/dL) 293 H 405 H 399 H (75-99) mg/dL Calcium (8.4-10.2) mg/dL Ionized Calcium Khurram (4.5-5.3) mg/dL 05/25/19 05/25/19 05/25/19 Range/Units 21:32 22:04 22:57 WBC (3.8-10.6) k/uL RBC (4.30-5.90) m/uL Hgb (13.0-17.5) gm/dL Hct (39.0-53.0) % Neutrophils # (1.3-7.7) k/uL Lymphocytes # (1.0-4.8) k/uL BUN (9-20) mg/dL Creatinine (0.66-1.25) mg/dL Glucose (74-99) mg/dL POC Glucose (mg/dL) 389 H 328 H 298 H (75-99) mg/dL Calcium (8.4-10.2) mg/dL Ionized Calcium Khurram (4.5-5.3) mg/dL 05/25/19 05/26/19 05/26/19 Range/Units 23:59 01:09 02:00 WBC (3.8-10.6) k/uL RBC (4.30-5.90) m/uL Hgb (13.0-17.5) gm/dL Hct (39.0-53.0) % Neutrophils # (1.3-7.7) k/uL Lymphocytes # (1.0-4.8) k/uL BUN (9-20) mg/dL Creatinine (0.66-1.25) mg/dL Glucose (74-99) mg/dL POC Glucose (mg/dL) 249 H 163 H 100 H (75-99) mg/dL Calcium (8.4-10.2) mg/dL Ionized Calcium Khurram (4.5-5.3) mg/dL 05/26/19 05/26/19 05/26/19 Range/Units 02:58 04:04 04:32 WBC (3.8-10.6) k/uL RBC (4.30-5.90) m/uL Hgb (13.0-17.5) gm/dL Hct (39.0-53.0) % Neutrophils # (1.3-7.7) k/uL Lymphocytes # (1.0-4.8) k/uL BUN (9-20) mg/dL Creatinine (0.66-1.25) mg/dL Glucose (74-99) mg/dL POC Glucose (mg/dL) 73 L 65 L 155 H (75-99) mg/dL Calcium (8.4-10.2) mg/dL Ionized Calcium Khurram (4.5-5.3) mg/dL 05/26/19 05/26/19 05/26/19 Range/Units 04:54 05:29 05:29 WBC 10.8 H (3.8-10.6) k/uL RBC 3.77 L (4.30-5.90) m/uL Hgb 10.5 L (13.0-17.5) gm/dL Hct 31.5 L (39.0-53.0) % Neutrophils # 9.7 H (1.3-7.7) k/uL Lymphocytes # 0.2 L (1.0-4.8) k/uL BUN 104 H* (9-20) mg/dL Creatinine 4.74 H (0.66-1.25) mg/dL Glucose 108 H (74-99) mg/dL POC Glucose (mg/dL) 127 H (75-99) mg/dL Calcium 6.3 L* (8.4-10.2) mg/dL Ionized Calcium Khurram 3.7 L (4.5-5.3) mg/dL 05/26/19 05/26/19 05/26/19 Range/Units 05:58 06:56 08:10 WBC (3.8-10.6) k/uL RBC (4.30-5.90) m/uL Hgb (13.0-17.5) gm/dL Hct (39.0-53.0) % Neutrophils # (1.3-7.7) k/uL Lymphocytes # (1.0-4.8) k/uL BUN (9-20) mg/dL Creatinine (0.66-1.25) mg/dL Glucose (74-99) mg/dL POC Glucose (mg/dL) 113 H 108 H 150 H (75-99) mg/dL Calcium (8.4-10.2) mg/dL Ionized Calcium Khurram (4.5-5.3) mg/dL 05/26/19 Range/Units 11:28 WBC (3.8-10.6) k/uL RBC (4.30-5.90) m/uL Hgb (13.0-17.5) gm/dL Hct (39.0-53.0) % Neutrophils # (1.3-7.7) k/uL Lymphocytes # (1.0-4.8) k/uL BUN (9-20) mg/dL Creatinine (0.66-1.25) mg/dL Glucose (74-99) mg/dL POC Glucose (mg/dL) 253 H (75-99) mg/dL Calcium (8.4-10.2) mg/dL Ionized Calcium Khurram (4.5-5.3) mg/dL Microbiology - Last 24 Hours (Table) 05/21/19 13:54 Blood Culture - Preliminary Blood No Growth after 96 hours Assessment and Plan Assessment: acute pulmonary edema with acute congestive heart failure Hypertensive urgency, improved Influenza A infection possible acute COPD exacerbation acute hypoxic respiratory failure Acute kidney injury on chronic kidney disease CKD, stage III hypokalemia diabetes mellitus Hypertension Hyperlipidemia Sleep apnea on CPAP/BiPAP Plan: this is a pleasant 63 years old male who presents with acute renal failure and respiratory failure from fluid congestion of the lungs. Continue with oxygen via High flow nasal cannula. Following recommendation by supervisory it specialist. Continue with Lasix. 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 Continue with BiPAP as needed at night. Continue with high flow oxygen via nasal cannula. Continue with steroids and antibiotics. Continue with aspirin, and Labs and medication were reviewed.. Continue same treatment. Continue with symptomatic treatment. Resume home medication. Monitor lytes and vitals. DVT and GI prophylaxis. Further recommendations of the clinical course of the patient DVT prophylaxis: Subcutaneous heparin GI Prophylaxis: Pepcid PT/OT: Pending Prognosis is guarded
[2019-05-26 16:27] LABS: Glucose,Whole Blood 387 mg/dL (75-99)
[2019-05-26] MEDS: INSULN ASP PRT/INSULIN ASPART 100 UNIT/ML 10 ML VIAL SQ SCH (17:41)
[2019-05-26 20:22] LABS: Glucose,Whole Blood 368 mg/dL (75-99)
[2019-05-27] MEDS: HEPARIN SODIUM,PORCINE 5,000 UNIT/ML 1 ML VIAL SQ SCH ×4 (01:28→23:16)
[2019-05-27] MEDS: methylPREDNISolone SOD SUCCI 40 MG/ML 1 ML VIAL IV SCH ×4 (01:28→23:15)
[2019-05-27 06:29] LABS: Calcium 6.7 mg/dL (8.4-10.2); Magnesium 2.2 mg/dL (1.6-2.3); Total Bilirubin 0.5 mg/dL (0.2-1.3); Total Protein 5.9 g/dL (6.3-8.2)
[2019-05-27 06:57] LABS: Glucose,Whole Blood 154 mg/dL (75-99)
[2019-05-27] MEDS: INSULIN ASPART (NovoLOG) 100 UNIT/ML VIAL SQ SCH ×5 (07:22→21:52)
[2019-05-27] MEDS: INSULN ASP PRT/INSULIN ASPART 100 UNIT/ML 10 ML VIAL SQ SCH ×2 (07:23→17:26)
[2019-05-27 07:25] LABS: Potassium 4.1 mmol/L (3.5-5.1)
[2019-05-27] MEDS: PIPERACILLIN-TAZOBACTAM 3.375 GM in SODIUM CHLORIDE 0.9% 100 ML IVPB SCH ×2 (07:59→20:38)
[2019-05-27] MEDS: ASPIRIN 81 MG PO SCH (08:00)
[2019-05-27] MEDS: cloNIDine HCL 0.1 MG TAB PO SCH ×2 (08:00→20:37)
[2019-05-27] MEDS: amLODIPine 10 MG TAB PO SCH (08:00)
[2019-05-27] MEDS: METOPROLOL TARTRATE 25 MG TAB PO SCH ×3 (08:00→20:37)
[2019-05-27] MEDS: GABAPENTIN 100 MG CAP PO SCH ×2 (08:00→20:37)
[2019-05-27] MEDS: hydrALAZINE HCL 50 MG TAB PO SCH ×3 (08:00→20:36)
[2019-05-27] MEDS: PANTOPRAZOLE 40 MG TABLET PO SCH ×2 (08:00→16:19)
[2019-05-27] MEDS: FUROSEMIDE 10 MG/ML 4 ML VIAL IV SCH ×2 (08:01→20:37)
--- NOTE | 2019-05-27 08:40 | P.PN ---
Subjective Patient is seen in follow-up for acute kidney injury on chronic kidney disease. Renal function is improving. Patient is nonoliguric. Currently maintained on Lasix 40 mg IV twice daily. Currently on 4 L nasal cannula. Oral intake is good. Jalloh catheter discontinued. Vital signs are stable. General: The patient appeared well nourished and normally developed. HEENT: Head exam is unremarkable. Neck is without jugular venous distension. LUNGS: Breath sounds decreased. HEART: Rate and Rhythm are regular. First and second heart sounds normal. No murmurs, rubs or gallops. ABDOMEN: Abdominal exam reveals normal bowel sounds. Non-tender and non- distended. No evidence of peritonitis. EXTREMITITES: No clubbing, cyanosis, or edema. Objective - Vital Signs Vital signs: Vital Signs Temp 98.2 F 05/27/19 08:00 Pulse 75 05/27/19 08:00 Resp 17 05/27/19 08:00 BP 150/92 05/27/19 08:00 Pulse Ox 94 L 05/27/19 08:00 Intake & Output 05/26/19 05/27/19 05/27/19 18:59 06:59 18:59 Intake Total 1260 320 298 Output Total 1695 1425 Balance -435 -1105 298 Intake: IV 160 320 0.9 160 320 Intake, IV Titration 200 Amount Calcium Gluconate 1 gm In 100 Sodium Chloride 0.9% 100 ml @ 100 mls/hr IVPB ONCE ONE Rx#:[id number] Calcium Gluconate 1 gm In 100 Sodium Chloride 0.9% 100 ml @ 100 mls/hr IVPB ONCE ONE Rx#:[id number] Oral 900 298 Output: Urine 1695 1425 Other: Voiding Method Indwelling Catheter - Labs CBC & Chem 7: 05/26/19 05:29 05/27/19 04:25 Labs: Abnormal Lab Results - Last 24 Hours (Table) 05/26/19 05/26/19 05/26/19 Range/Units 05:29 11:28 16:25 BUN (9-20) mg/dL Creatinine (0.66-1.25) mg/dL Glucose (74-99) mg/dL POC Glucose (mg/dL) 253 H 387 H (75-99) mg/dL Calcium (8.4-10.2) mg/dL Ionized Calcium Khurram 3.7 L (4.5-5.3) mg/dL AST (17-59) U/L ALT (4-49) U/L Alkaline Phosphatase (38-126) U/L Total Protein (6.3-8.2) g/dL Albumin (3.5-5.0) g/dL 05/26/19 05/27/19 05/27/19 Range/Units 20:20 04:25 06:56 BUN 95 H (9-20) mg/dL Creatinine 4.33 H (0.66-1.25) mg/dL Glucose 192 H (74-99) mg/dL POC Glucose (mg/dL) 368 H 154 H (75-99) mg/dL Calcium 6.7 L (8.4-10.2) mg/dL Ionized Calcium Khurram (4.5-5.3) mg/dL AST 68 H (17-59) U/L ALT 98 H (4-49) U/L Alkaline Phosphatase 127 H (38-126) U/L Total Protein 5.9 L (6.3-8.2) g/dL Albumin 3.0 L (3.5-5.0) g/dL Microbiology - Last 24 Hours (Table) 05/21/19 13:54 Blood Culture - Preliminary Blood No Growth after 120 hours Assessment and Plan Plan: Assessment: 1. Acute kidney injury secondary to ATN secondary to infection. Also component of cardiorenal syndrome. Renal function better. Creatinine 4.33 today. Elevated BUN which is due to renal failure as well as IV steroids - trending down. 2. Chronic kidney disease stage III. Baseline creatinine 1.5-1.6. Etiology is diabetic kidney disease. 3. Influenza A s/p Tamiflu. 4. Acute on chronic diastolic CHF. 5. Volume overload maintain IV Lasix. Better. 6. Hypocalcemia secondary to acute kidney injury. Improved post replacement. 7. Hypokalemia secondary to diuresis. Better. 8. Hypertension with chronic kidney disease. 9. Insulin-dependent diabetes mellitus. Plan: Maintain IV Lasix 40 mg twice daily - can be changed to orally in the next 24-48 hours. Wean FiO2. Continue to monitor renal function and urine output.
[2019-05-27] MEDS: IPRATROPIUM-ALBUTEROL 3 ML NEB INHALATION SCH ×4 (09:15→21:18)
--- NOTE | 2019-05-27 10:12 | P.PN ---
Subjective Progress Note Date: 05/27/19 Principal diagnosis: Acute hypoxic rest or a failure secondary to acute congestive heart failure, with systolic dysfunction, and possible right upper lobe pneumonia This is a 63-year-old white male, morbidly obese, known history of COPD, however not O2 dependent and not steroid dependent, history of previous cardiac arrest in 2016, type 2 diabetes, associated with that the attic nephropathy and chronic renal failure, hypertension and hypertensive nephrosclerosis, obstructive sleep apnea, maintained on CPAP at home, remote smoking history quit in 2009. Patient presented to the ER with 1 week history of shortness of breath cough and wheezing. He was also complaining of few pillows orthopnea, paroxysmal nocturnal dyspnea, he had no fever no chills no hemoptysis no chest pain. No nausea no vomiting no abdominal pain no melena no hematemesis. Upon arrival, patient was tachycardic, hypertensive with a blood pressure of 190/95. Chest x- ray showed evidence of pulmonary edema. Labs showed no evidence of leukocytosis, his ABG on 40% FiO2 showed a pO2 of 64 pCO2 of 32, pH of 7.36, Low bicarb of 19, anion gap of 17, BUN of 67 and creatinine of 3.94, elevated troponin of 2.17, and elevated BNP of 6890. He also tested positive for influenza type A. Patient was admitted, placed on BiPAP, placed on bronchodilators, steroids, Lasix drip, Tamiflu, empiric antibiotics, and this consult was initiated. Patient is not in the ICU, responding well to diuresis, feeling better breathing easier, however he remains on BiPAP at IPAP of 16 EPAP of 6 FiO2 of 50%. O2 saturation is 94%. Repeat labs this morning showed a blood sugar of 333, BUN is 83 creatinine 4.60 bicarb is 14 and anion gap of 20. Patient was reevaluated today on 05/23/2019, remains in the ICU, continues to have a good urine output on Lasix drip, renal functioning is getting a bit worse, hence the Lasix was discontinued. Chest x-ray continues to show interstitial edema and what seems to be a right upper lobe consolidation, possible pneumonia. Although the possibility of atypical pulmonary edema is not entirely ruled out. Patient is empirically on antibiotics including vancomycin and Zosyn. Pro-calcitonin level was ordered. Patient is on 5 L nasal cannula. Electrolytes showed low potassium being corrected. Bicarb is 20. BUN is 99 creatinine is 5.49. Admission creatinine was 3.94, patient does have history of chronic stage III renal failure. Patient is feeling better breathing easier compared to how he felt on admission. He is on Tamiflu, diuretics which were discontinued this morning, and antibiotics. Hardly any cough, no wheezing, he does have shortness of breath. And maintained presently on 5 L nasal cannula. Patient was reevaluated today on 05/24/2019, remains in the intensive care unit, he is on high flow nasal cannula, O2 saturation is marginal, received a dose of Lasix earlier today, and last night he had an episode of increased shortness of breath, desaturation, coughing and wheezing, placed on BiPAP. Off BiPAP at 4:00 this morning. Has been off and on a high flow nasal cannula since 4 AM. His overall pulmonary status remains marginal. Chest x-ray this morning is pending. Presently the patient is feeling a bit better, however he did receive earlier 40 mg of Lasix IV push. Remains on broad-spectrum antibiotics, remains on bronchodilators, remains on steroids. CBC is relatively normal electrolytes showed low potassium of 3.1 renal functioning showed BUN of 111 creatinine 5.48. Similar to yesterday. Pro-calcitonin level is elevated, it is 1.11, hence we'll continue antibiotics. Reevaluated today on 05/25/2019, remains in the intensive care unit, remains on high flow nasal cannula, patient is feeling better clinically less shortness of breath, no cough no wheezing no fever no chills no hemoptysis. His chest x-ray is showing definite improvement in his interstitial edema and in his pneumonia. However it's not completely resolved. Patient remains on Lasix at 40 mg IV push twice a day. Definite improvement compared to the last few days clinically and radiographically. Reevaluated today on 05/26/2019, patient continues to respond well to treatment with diuretics and antibiotics for congestive heart failure and for what seems t o be a right upper lobe pneumonia. He is down to 6 L nasal cannula, remains on Lasix at 40 mg IV push every 12 hours. No major issues overnight. Chest x-ray was reviewed, continues to have significant amount of interstitial edema and right upper lobe infiltrate. Hence we'll continue present treatment, and I plan to transfer the patient out of the ICU to a monitor bed on the floor or possibly selective bed. WBC count is 10.8 hemoglobin is 10.5 twice are normal BUN is a bit down 104 creatinine is also a bit down 4.74 compared to yesterday. On 05/27/2019 patient seen in follow-up in the intensive care unit, patient is weak and alert, he sitting up in the chair in no acute distress, currently on 4 L of oxygen, has not required BiPAP support last night, physical exam reveals diminished breath sounds at the bases, no significant rhonchi or wheezing, today's chest x-ray still shows bilateral infiltrates, patient is diuresing, and he is in -1540 mL fluid balance, signs are stable, sinus mechanism with a controlled rate no fever or chills, culture has shown no growth. Remains on Zosyn, IV steroids, nebulized bronchodilators, and Lasix dose was adjusted today, dropped down to 40 mg every 12 hours. Today's labs have been reviewed, electrodes are within normal limits, B1 is 95 creatinine is 4.33, and nephrology service is following. Objective - Vital Signs Vital signs: Vital Signs Temp 98.2 F 05/27/19 08:00 Pulse 77 05/27/19 09:28 Resp 17 05/27/19 08:00 BP 150/92 05/27/19 08:00 Pulse Ox 94 L 05/27/19 08:00 Intake & Output 05/26/19 05/27/19 05/27/19 18:59 06:59 18:59 Intake Total 1260 320 298 Output Total 1695 1425 450 Balance -435 -1105 -152 Intake: IV 160 320 0.9 160 320 Intake, IV Titration 200 Amount Calcium Gluconate 1 gm In 100 Sodium Chloride 0.9% 100 ml @ 100 mls/hr IVPB ONCE ONE Rx#:[id number] Calcium Gluconate 1 gm In 100 Sodium Chloride 0.9% 100 ml @ 100 mls/hr IVPB ONCE ONE Rx#:[id number] Oral 900 298 Output: Urine 1695 1425 450 Other: Voiding Method Indwelling Catheter # Voids 1 - Exam GENERAL EXAM: Alert, very pleasant, 63-year-old male, on 4 L of oxygen, pulse ox of 94%, comfortable in no apparent distress. HEAD: Normocephalic/atraumatic. EYES: Normal reaction of pupils, equal size. Conjunctiva pink, sclera white. NOSE: Clear with pink turbinates. THROAT: No erythema or exudates. NECK: No masses, no JVD, no thyroid enlargement, no adenopathy. CHEST: No chest wall deformity. Symmetrical expansion. LUNGS: Equal air entry with no crackles, wheeze, rhonchi or dullness. CVS: Regular rate and rhythm, normal S1 and S2, no gallops, no murmurs, no rubs ABDOMEN: Soft, nontender. No hepatosplenomegaly, normal bowel sounds, no guarding or rigidity. EXTREMITIES: No clubbing, 1+ bipedal edema, no cyanosis, 2+ pulses and upper and lower extremities. MUSCULOSKELETAL: Muscle strength and tone normal. SPINE: No scoliosis or deformity SKIN: No rashes CENTRAL NERVOUS SYSTEM: Alert and oriented -3. No focal deficits, tone is normal in all 4 extremities. PSYCHIATRIC: Alert and oriented -3. Appropriate affect. Intact judgment and insight. - Labs CBC & Chem 7: 05/26/19 05:29 05/27/19 04:25 Labs: Abnormal Lab Results - Last 24 Hours (Table) 05/26/19 05/26/19 05/26/19 Range/Units 05:29 11:28 16:25 BUN (9-20) mg/dL Creatinine (0.66-1.25) mg/dL Glucose (74-99) mg/dL POC Glucose (mg/dL) 253 H 387 H (75-99) mg/dL Calcium (8.4-10.2) mg/dL Ionized Calcium Khurram 3.7 L (4.5-5.3) mg/dL AST (17-59) U/L ALT (4-49) U/L Alkaline Phosphatase (38-126) U/L Total Protein (6.3-8.2) g/dL Albumin (3.5-5.0) g/dL 05/26/19 05/27/19 05/27/19 Range/Units 20:20 04:25 06:56 BUN 95 H (9-20) mg/dL Creatinine 4.33 H (0.66-1.25) mg/dL Glucose 192 H (74-99) mg/dL POC Glucose (mg/dL) 368 H 154 H (75-99) mg/dL Calcium 6.7 L (8.4-10.2) mg/dL Ionized Calcium Khurram (4.5-5.3) mg/dL AST 68 H (17-59) U/L ALT 98 H (4-49) U/L Alkaline Phosphatase 127 H (38-126) U/L Total Protein 5.9 L (6.3-8.2) g/dL Albumin 3.0 L (3.5-5.0) g/dL Microbiology - Last 24 Hours (Table) 05/21/19 13:54 Blood Culture - Preliminary Blood No Growth after 120 hours Assessment and Plan Plan: Assessment: #1. Acute hypoxic respiratory failure secondary to acute congestive heart failure, diastolic dysfunction, echocardiogram showed preserved LV function #2. Possible right upper lobe pneumonia, possibly community-acquired, Protonix at 2 levels 1.11 #3. Hypertensive urgency, on presentation, remains on treatment for blood pressure, blood pressures currently better controlled #4. Acute influenza A infection #5. Acute exacerbation of COPD #6. Type 2 diabetes, poorly controlled associated with diabetic nephropathy, previously diagnosed with kidney biopsy #7. Hypertensive nephrosclerosis and diabetic nephropathy #8. Dyslipidemia #9. Obstructive sleep apnea on CPAP at home #10. Acute on chronic kidney injury Plan: Continue IV diuretics, patient is in negative fluid balance, FiO2 is down to 4 L, continue weaning FiO2, encourage deep breathing and coughing, continue Zosyn, continue Tamiflu, vancomycin has been discontinued, no fever or chills, hemodynamically patient is stable, today's chest x-ray has been reviewed, still showing bilateral infiltrates. Patient is stable to transfer out of intensive care to general medical floor, will continue to follow I performed a history & physical examination of the patient and discussed their management with my nurse practitioner, Simi Arana. I reviewed the nurse practitioner's note and agree with the documented findings and plan of care. Lung sounds are positive for diminished breath sounds. The findings and the impression was discussed with the patient. I attest to the documentation by the nurse practitioner. Time with Patient: Less than 30
[2019-05-27 12:04] LABS: Glucose,Whole Blood 131 mg/dL (75-99)
[2019-05-27 12:46] VITALS: BMI 33.3
[2019-05-27 17:05] LABS: Glucose,Whole Blood 322 mg/dL (75-99)
--- NOTE | 2019-05-27 17:24 | P.PN ---
Subjective this is a pleasant 63 years old male with past medical history of COPD not on home oxygen or steroids, status post cardiac arrest in 2016 and he follows up with Dr. Saavedra [employer] [facility], diabetes mellitus, hypertension, hyperlipidemia, sleep apnea on CPAP, previous smoker since 2009 he quit. to presents because of worsening dyspnea of one week duration associated with cough and white phlegm especially when he takes his inhaler. Associated with o rthopnea and paroxysmal nocturnal dyspnea but no chest pain. He denies abdominal pain, no headache, no vomiting, no change in urine or bowel habits. No fever vitals on admission showing tachycardia and high blood pressure 190/95. He was immediately placed on BiPAP. Labs showingunremarkable CBC and INR, sodium 132, potassium 3.4, creatinine is 3.9. Lactic acid 1.5, AST 75 and ALT 41.. Chest x-ray showing fluid overload. Patient was started on nitroglycerin drip and given 1 dose of Lasix 80 mg. further work up came back positive for influenza A and pt was started on Tamiflu,, troponin is elevated at 2.17, pt is admitted to ICU, with nitro drip and lasix drip, c/w BiPAP , consult critical care team, c/w asprin ,and steroid and bronchodilators and heparin prognosis is guarded given multiple and complex medical problems 05/22/2019 Patient remains in the ICU, he is currently on BiPAP patients with FiO2 -40%, which is lowered compared to last night. Patient is breathing is better and he says more than 50% improved. He still denies chest pain, no headache. No nausea vomiting. No sweating. Is still tachypneic with a preserved rate 30, other vitals are stable. CBC is stable. Sodium stable at 131, creatinine is worsened and 4.6. Renal ultrasound was unremarkable. His troponin is trending down from 2.1 down to 1.6. He remains on droplet isolation for positive for influenza A. Chest x-ray, per radiology showing some improvement in the right side with patchy consolidation of the left lower side. Chest x-ray reviewed by me showing significant improvement on radiation especially in the right side. Patient remains on Lasix drip at 10, no nitro drip. He remains on BiPAP machine. Cardiology input is appreciated, they recommended echocardiogram. Patient currently remains on Tamiflu, and steroids. Continue with aspirin. Nephrology consult is called. 05/23/2019 Patient is seen in the ICU. His breathing is improving with a air entry on auscultation. He is currently on high flow nasal cannula at 15 L/minutes. Patient can't really with no much difficulty. However patient had use BiPAP at night. He has mild leukocytosis of 11.6. Potassium was severely low at 2.6 and calcium 6.2. This will replaced. Hold Lasix drip for now for hypokalemia and high creatinine. Insulin drip was stopped and patient was started on insulin 70:30 mm going to follow-up glucose level and adjust dose accordingly. Also patient remains on insulin drip. He remains on Tamiflu on Zosyn, remains on IV steroids. And continue with hydralazine and clonidine with Norvasc and losartan for blood pressure control. Aspirin has been added. Labs showing worsening creatinine of 5.4. Chest x-ray: Pneumonia versus edema. However is improved from admission. Leukocytosis at 11.9 K. 05/24/2019 Patient is awake, his breathing is little better than yesterday however still on high flow oxygen at 15 L/m via nasal cannula. History is looks a bit tight and repeat chest x-ray is requested. Patient needs and BiPAP at night. He feels some nausea. He also is constipated and lactulose has been ordered. Vitals looks stable. Creatinine is stable at 5.4, potassium 3.2 and with calcium 6.0, sugars to 266-314. Increase his insulin to 40 units twice a day. He is currently on Lasix 40 mg twice daily however wanted to be increased, this on repeat chest x-ray. Patient is making good urine output and will follow up with physical security specialist for possible need for hemodialysis. ProBNP is improving from 6890 down to 4600 05/25/2019 patient remains in the ICU. He feels better. He is requiring less oxygen on high flow cannula. He didn't need BiPAP at night. Vitas looks stable. we are replacing his calcium. Chest x-ray showing improvement and he is needing this Lasix. He has to bowel movement on lactulose and he is happy about that, he does not want to lower the dose of lactulose when asked today.other than That his sugar is better controlled although it's on the high side.we going to increase his insulin 55 units twice a day 05/26/2019 would be downgraded today to the select unit . His breathing is significantly improved and his breathing more easily now. No chest pain. He has bowel movement. Vitas looks stable. Labs reviewed with improvement in the WBC down to 10.8. Creatinine 4.7. Low calcium is been replaced. Tamiflu has been discontinued. Chest x-ray from today showing stable airspace disease 05/27/2019 Patient keep improving, his breathing more ea and his leukocytosis improvement 10.8 K. sily today. Vital signs stable, blood pressure on the high side 175/80, also he is on Solu-Medrol. Labs showing improvement creatinine to 4.3, he is saturating 95% on 3 L oxygen and breathing more quietly. Patient showing significant improvement Objective - Vital Signs Vital signs: Vital Signs Temp 98.2 F 05/27/19 16:00 Pulse 74 05/27/19 16:47 Resp 14 05/27/19 16:00 BP 175/80 05/27/19 16:00 Pulse Ox 95 05/27/19 16:00 Intake & Output 05/26/19 05/27/19 05/27/19 18:59 06:59 18:59 Intake Total 1260 320 908 Output Total 1695 1425 1350 Balance -435 -2159 -973 Weight 105.2 kg Intake: IV 160 320 160 0.9 160 320 160 Intake, IV Titration 200 Amount Calcium Gluconate 1 gm In 100 Sodium Chloride 0.9% 100 ml @ 100 mls/hr IVPB ONCE ONE Rx#:[id number] Calcium Gluconate 1 gm In 100 Sodium Chloride 0.9% 100 ml @ 100 mls/hr IVPB ONCE ONE Rx#:[id number] Oral 900 748 Output: Urine 1695 1425 1350 Other: Voiding Method Indwelling Catheter # Voids 1 - Exam GENERAL: The patient is alert and oriented x3, not in any acute distress. Well developed, well nourished. HEENT: Pupils are round and equally reacting to light. EOMI. No scleral icterus. No conjunctival pallor. Normocephalic, atraumatic. No pharyngeal erythema. No thyromegaly. CARDIOVASCULAR: S1 and S2 present. No murmurs, rubs, or gallops. -PULMONARY: Chest is clear to auscultation, bilateral scattered wheezing with bilateral coarse crepitation ABDOMEN: Soft, nontender, nondistended, normoactive bowel sounds. No palpable organomegaly. MUSCULOSKELETAL: No joint swelling or deformity. -EXTREMITIES: No cyanosis, clubbing,. Bilateral leg edema, pitting NEUROLOGICAL: Gross neurological examination did not reveal any focal deficits. SKIN: No rashes. No petechiae - Labs CBC & Chem 7: 05/26/19 05:29 05/27/19 04:25 Labs: Abnormal Lab Results - Last 24 Hours (Table) 05/26/19 05/27/19 05/27/19 Range/Units 20:20 04:25 06:56 BUN 95 H (9-20) mg/dL Creatinine 4.33 H (0.66-1.25) mg/dL Glucose 192 H (74-99) mg/dL POC Glucose (mg/dL) 368 H 154 H (75-99) mg/dL Calcium 6.7 L (8.4-10.2) mg/dL AST 68 H (17-59) U/L ALT 98 H (4-49) U/L Alkaline Phosphatase 127 H (38-126) U/L Total Protein 5.9 L (6.3-8.2) g/dL Albumin 3.0 L (3.5-5.0) g/dL 05/27/19 05/27/19 Range/Units 12:03 17:03 BUN (9-20) mg/dL Creatinine (0.66-1.25) mg/dL Glucose (74-99) mg/dL POC Glucose (mg/dL) 131 H 322 H (75-99) mg/dL Calcium (8.4-10.2) mg/dL AST (17-59) U/L ALT (4-49) U/L Alkaline Phosphatase (38-126) U/L Total Protein (6.3-8.2) g/dL Albumin (3.5-5.0) g/dL Microbiology - Last 24 Hours (Table) 05/21/19 13:54 Blood Culture - Final Blood No Growth after 144 hours Assessment and Plan Assessment: acute pulmonary edema with acute congestive heart failure Hypertensive urgency, improved Influenza A infection possible acute COPD exacerbation acute hypoxic respiratory failure Acute kidney injury on chronic kidney disease CKD, stage III hypokalemia diabetes mellitus Hypertension Hyperlipidemia Sleep apnea on CPAP/BiPAP Plan: this is a pleasant 63 years old male who presents with acute renal failure and respiratory failure from fluid congestion of the lungs. Continue with oxygen nasal cannula. Following recommendation by physical security specialist. Continue with Lasix. Follow-up recommendation by [employer] [facility] consultant, physical security specialist and feeder catcher tobacco. Continue with BiPAP as needed at night. Continue with high flow oxygen via nasal cannula. Continue with steroids and antibiotics. Continue with aspirin, and Labs and medication were reviewed.. Continue same treatment. Continue with symptomatic treatment. Resume home medication. Monitor lytes and vitals. DVT and GI prophylaxis. Further recommendations of the clinical course of the patient DVT prophylaxis: Subcutaneous heparin GI Prophylaxis: Pepcid PT/OT: Pending Prognosis is guarded
[2019-05-27 21:19] LABS: Glucose,Whole Blood 441 mg/dL (75-99)
[2019-05-27] MEDS ORDERED: INSULIN ASPART (NovoLOG) 100 UNIT/ML VIAL SQ ONE (21:38)
[2019-05-28 05:48] LABS: Calcium 6.6 mg/dL (8.4-10.2); Potassium 4.2 mmol/L (3.5-5.1)
[2019-05-28 06:45] LABS: Glucose,Whole Blood 233 mg/dL (75-99)
[2019-05-28] MEDS: INSULIN ASPART (NovoLOG) 100 UNIT/ML VIAL SQ SCH ×5 (06:51→21:33)
[2019-05-28] MEDS: INSULN ASP PRT/INSULIN ASPART 100 UNIT/ML 10 ML VIAL SQ SCH ×2 (06:52→16:58)
[2019-05-28] MEDS: PANTOPRAZOLE 40 MG TABLET PO SCH ×2 (06:52→16:37)
[2019-05-28] MEDS: PIPERACILLIN-TAZOBACTAM 3.375 GM in SODIUM CHLORIDE 0.9% 100 ML IVPB SCH ×2 (08:07→21:32)
[2019-05-28] MEDS: methylPREDNISolone SOD SUCCI 40 MG/ML 1 ML VIAL IV SCH ×3 (08:07→23:35)
[2019-05-28] MEDS: FUROSEMIDE 10 MG/ML 4 ML VIAL IV SCH ×2 (08:07→21:32)
[2019-05-28] MEDS: HEPARIN SODIUM,PORCINE 5,000 UNIT/ML 1 ML VIAL SQ SCH ×3 (08:07→23:35)
[2019-05-28] MEDS: hydrALAZINE HCL 50 MG TAB PO SCH ×3 (08:08→21:31)
[2019-05-28] MEDS: GABAPENTIN 100 MG CAP PO SCH ×2 (08:08→21:32)
[2019-05-28] MEDS: cloNIDine HCL 0.1 MG TAB PO SCH ×2 (08:08→21:31)
[2019-05-28] MEDS: amLODIPine 10 MG TAB PO SCH (08:08)
[2019-05-28] MEDS: ASPIRIN 81 MG PO SCH (08:09)
[2019-05-28] MEDS: METOPROLOL TARTRATE 25 MG TAB PO SCH (08:09)
[2019-05-28] MEDS: IPRATROPIUM-ALBUTEROL 3 ML NEB INHALATION SCH ×4 (08:47→19:27)
--- NOTE | 2019-05-28 08:48 | P.PN ---
Subjective Progress Note Date: 05/28/19 Principal diagnosis: Acute hypoxic rest or a failure secondary to acute congestive heart failure, with systolic dysfunction, and possible right upper lobe pneumonia This is a 63-year-old white male, morbidly obese, known history of COPD, however not O2 dependent and not steroid dependent, history of previous cardiac arrest in 2016, type 2 diabetes, associated with that the attic nephropathy and chronic renal failure, hypertension and hypertensive nephrosclerosis, obstructive sleep apnea, maintained on CPAP at home, remote smoking history quit in 2009. Patient presented to the ER with 1 week history of shortness of breath cough and wheezing. He was also complaining of few pillows orthopnea, paroxysmal nocturnal dyspnea, he had no fever no chills no hemoptysis no chest pain. No nausea no vomiting no abdominal pain no melena no hematemesis. Upon arrival, patient was tachycardic, hypertensive with a blood pressure of 190/95. Chest x- ray showed evidence of pulmonary edema. Labs showed no evidence of leukocytosis, his ABG on 40% FiO2 showed a pO2 of 64 pCO2 of 32, pH of 7.36, Low bicarb of 19, anion gap of 17, BUN of 67 and creatinine of 3.94, elevated troponin of 2.17, and elevated BNP of 6890. He also tested positive for influenza type A. Patient was admitted, placed on BiPAP, placed on bronchodilators, steroids, Lasix drip, Tamiflu, empiric antibiotics, and this consult was initiated. Patient is not in the ICU, responding well to diuresis, feeling better breathing easier, however he remains on BiPAP at IPAP of 16 EPAP of 6 FiO2 of 50%. O2 saturation is 94%. Repeat labs this morning showed a blood sugar of 333, BUN is 83 creatinine 4.60 bicarb is 14 and anion gap of 20. Patient was reevaluated today on 05/23/2019, remains in the ICU, continues to have a good urine output on Lasix drip, renal functioning is getting a bit worse, hence the Lasix was discontinued. Chest x-ray continues to show interstitial edema and what seems to be a right upper lobe consolidation, possible pneumonia. Although the possibility of atypical pulmonary edema is not entirely ruled out. Patient is empirically on antibiotics including vancomycin and Zosyn. Pro-calcitonin level was ordered. Patient is on 5 L nasal cannula. Electrolytes showed low potassium being corrected. Bicarb is 20. BUN is 99 creatinine is 5.49. Admission creatinine was 3.94, patient does have history of chronic stage III renal failure. Patient is feeling better breathing easier compared to how he felt on admission. He is on Tamiflu, diuretics which were discontinued this morning, and antibiotics. Hardly any cough, no wheezing, he does have shortness of breath. And maintained presently on 5 L nasal cannula. Patient was reevaluated today on 05/24/2019, remains in the intensive care unit, he is on high flow nasal cannula, O2 saturation is marginal, received a dose of Lasix earlier today, and last night he had an episode of increased shortness of breath, desaturation, coughing and wheezing, placed on BiPAP. Off BiPAP at 4:00 this morning. Has been off and on a high flow nasal cannula since 4 AM. His overall pulmonary status remains marginal. Chest x-ray this morning is pending. Presently the patient is feeling a bit better, however he did receive earlier 40 mg of Lasix IV push. Remains on broad-spectrum antibiotics, remains on bronchodilators, remains on steroids. CBC is relatively normal electrolytes showed low potassium of 3.1 renal functioning showed BUN of 111 creatinine 5.48. Similar to yesterday. Pro-calcitonin level is elevated, it is 1.11, hence we'll continue antibiotics. Reevaluated today on 05/25/2019, remains in the intensive care unit, remains on high flow nasal cannula, patient is feeling better clinically less shortness of breath, no cough no wheezing no fever no chills no hemoptysis. His chest x-ray is showing definite improvement in his interstitial edema and in his pneumonia. However it's not completely resolved. Patient remains on Lasix at 40 mg IV push twice a day. Definite improvement compared to the last few days clinically and radiographically. Reevaluated today on 05/26/2019, patient continues to respond well to treatment with diuretics and antibiotics for congestive heart failure and for what seems t o be a right upper lobe pneumonia. He is down to 6 L nasal cannula, remains on Lasix at 40 mg IV push every 12 hours. No major issues overnight. Chest x-ray was reviewed, continues to have significant amount of interstitial edema and right upper lobe infiltrate. Hence we'll continue present treatment, and I plan to transfer the patient out of the ICU to a monitor bed on the floor or possibly selective bed. WBC count is 10.8 hemoglobin is 10.5 twice are normal BUN is a bit down 104 creatinine is also a bit down 4.74 compared to yesterday. On 05/27/2019 patient seen in follow-up in the intensive care unit, patient is weak and alert, he sitting up in the chair in no acute distress, currently on 4 L of oxygen, has not required BiPAP support last night, physical exam reveals diminished breath sounds at the bases, no significant rhonchi or wheezing, today's chest x-ray still shows bilateral infiltrates, patient is diuresing, and he is in -1540 mL fluid balance, signs are stable, sinus mechanism with a controlled rate no fever or chills, culture has shown no growth. Remains on Zosyn, IV steroids, nebulized bronchodilators, and Lasix dose was adjusted today, dropped down to 40 mg every 12 hours. Today's labs have been reviewed, electrodes are within normal limits, B1 is 95 creatinine is 4.33, and nephrology service is following. On 05/28/2019 patient seen in follow-up in the intensive care unit, he is awake and alert, FiO2 is down to 3 L, and her pulse ox is 95%, states his breathing is improving, he remains on IV Lasix and patient is in -1540 mL fluid balance over the last 24 hours, lower extremity edema is improving, breathing easier, lung sounds are positive for a few scattered rhonchi, good air entry noted bilaterally. No fever or chills. It is labs have been noted, electrolytes are within normal limits, some improvement in his renal profile, B1 is down to 86 a nd creatinine 3.75. It is on IV steroids, and Zosyn for empiric antibiotic coverage, his had no fever or chills. Objective - Vital Signs Vital signs: Vital Signs Temp 97.9 F 05/27/19 20:30 Pulse 80 05/27/19 21:31 Resp 24 05/27/19 23:00 BP 165/80 05/27/19 23:00 Pulse Ox 95 05/27/19 23:00 Intake & Output 05/27/19 05/28/19 05/28/19 18:59 06:59 18:59 Intake Total 1248 240 Output Total 1700 2250 Weight 105.2 kg 103.8 kg Intake: IV 260 240 0.9 260 140 Piperacillin-Tazobactam 3 100 .375 gm In Sodium Chloride 0.9% 100 ml @ 25 mls/hr IVPB Q12HR [facility] Rx #:[id number] Oral 988 Output: Urine 1700 2250 Other: Voiding Method Urinal # Voids 1 - Exam GENERAL EXAM: Alert, very pleasant, 63-year-old male, on 3 L of oxygen, pulse ox of 95%, comfortable in no apparent distress. HEAD: Normocephalic/atraumatic. EYES: Normal reaction of pupils, equal size. Conjunctiva pink, sclera white. NOSE: Clear with pink turbinates. THROAT: No erythema or exudates. NECK: No masses, no JVD, no thyroid enlargement, no adenopathy. CHEST: No chest wall deformity. Symmetrical expansion. LUNGS: Equal air entry with scattered rhonchi CVS: Regular rate and rhythm, normal S1 and S2, no gallops, no murmurs, no rubs ABDOMEN: Soft, nontender. No hepatosplenomegaly, normal bowel sounds, no guarding or rigidity. EXTREMITIES: No clubbing, 1+ bipedal edema, no cyanosis, 2+ pulses and upper and lower extremities. MUSCULOSKELETAL: Muscle strength and tone normal. SPINE: No scoliosis or deformity SKIN: No rashes CENTRAL NERVOUS SYSTEM: Alert and oriented -3. No focal deficits, tone is normal in all 4 extremities. PSYCHIATRIC: Alert and oriented -3. Appropriate affect. Intact judgment and insight. - Labs CBC & Chem 7: 05/26/19 05:29 05/28/19 04:48 Labs: Abnormal Lab Results - Last 24 Hours (Table) 05/27/19 05/27/19 05/27/19 Range/Units 12:03 17:03 21:08 BUN (9-20) mg/dL Creatinine (0.66-1.25) mg/dL Glucose (74-99) mg/dL POC Glucose (mg/dL) 131 H 322 H 441 H (75-99) mg/dL Calcium (8.4-10.2) mg/dL 05/28/19 05/28/19 Range/Units 04:48 06:43 BUN 86 H (9-20) mg/dL Creatinine 3.75 H (0.66-1.25) mg/dL Glucose 261 H (74-99) mg/dL POC Glucose (mg/dL) 233 H (75-99) mg/dL Calcium 6.6 L (8.4-10.2) mg/dL Microbiology - Last 24 Hours (Table) 05/21/19 13:54 Blood Culture - Final Blood No Growth after 144 hours Assessment and Plan Plan: Assessment: #1. Acute hypoxic respiratory failure secondary to acute congestive heart fail ure, diastolic dysfunction, echocardiogram showed preserved LV function #2. Possible right upper lobe pneumonia, possibly community-acquired, Procalcitonin level 1.11 #3. Hypertensive urgency, on presentation, remains on treatment for blood pressure, blood pressures currently better controlled #4. Acute influenza A infection #5. Acute exacerbation of COPD #6. Type 2 diabetes, poorly controlled associated with diabetic nephropathy, previously diagnosed with kidney biopsy #7. Hypertensive nephrosclerosis and diabetic nephropathy #8. Dyslipidemia #9. Obstructive sleep apnea on CPAP at home #10. Acute on chronic kidney injury Plan: Continue weaning FiO2, continue with IV Lasix, fluid volume status is improving, patient maintain is negative fluid balance, improvement in appearance of generalized edema noted on today's exam, increase activity as tolerated, today's labs have been noted, we'll obtain follow-up chest x-ray, there have been no fever or chills, continue Zosyn and IV steroids, continue nebulized bronchodilators. Patient is stable to transfer out of intensive care unit to general medical floor I performed a history & physical examination of the patient and discussed their management with my nurse practitioner, Simi Arana. I reviewed the nurse practitioner's note and agree with the documented findings and plan of care. Lung sounds are positive for diminished breath sounds. The findings and the impression was discussed with the patient. I attest to the documentation by the nurse practitioner. Time with Patient: Less than 30
--- NOTE | 2019-05-28 11:04 | P.PN ---
Subjective Progress Note Date: 05/28/19 Seen and examined for the follow-up of acute kidney injury. Objective - Vital Signs Vital signs: Vital Signs Temp 97.4 F L 05/28/19 08:00 Pulse 74 05/28/19 09:04 Resp 14 05/28/19 08:00 BP 164/78 05/28/19 08:00 Pulse Ox 95 05/27/19 23:00 Intake & Output 05/27/19 05/28/19 05/28/19 18:59 06:59 18:59 Intake Total 1248 240 Output Total 1700 2250 - Weight 105.2 kg 103.8 kg Intake: IV 260 240 0.9 260 140 Piperacillin-Tazobactam 3 100 .375 gm In Sodium Chloride 0.9% 100 ml @ 25 mls/hr IVPB Q12HR [facility] Rx #:[id number] Oral 988 Output: Urine 1700 2250 Other: Voiding Method Urinal # Voids 1 - Exam No acute distress S1-S2 heard Decreased breath sounds bases Abdomen soft Edema - Labs CBC & Chem 7: 05/26/19 05:29 05/28/19 04:48 Labs: Abnormal Lab Results - Last 24 Hours (Table) 05/27/19 05/27/19 05/27/19 Range/Units 12:03 17:03 21:08 BUN (9-20) mg/dL Creatinine (0.66-1.25) mg/dL Glucose (74-99) mg/dL POC Glucose (mg/dL) 131 H 322 H 441 H (75-99) mg/dL Calcium (8.4-10.2) mg/dL 05/28/19 05/28/19 Range/Units 04:48 06:43 BUN 86 H (9-20) mg/dL Creatinine 3.75 H (0.66-1.25) mg/dL Glucose 261 H (74-99) mg/dL POC Glucose (mg/dL) 233 H (75-99) mg/dL Calcium 6.6 L (8.4-10.2) mg/dL Microbiology - Last 24 Hours (Table) 05/21/19 13:54 Blood Culture - Final Blood No Growth after 144 hours Assessment and Plan Assessment: #1 nonoliguric acute kidney injury secondary to septic ATN/CRS type I. #2 hypertension with chronic kidney disease #3 chronic kidney disease stage III baseline creatinine 1.5-1.6 secondary to diabetic kidney disease #4 influenza A on Tamiflu #5 acute on chronic diastolic CHF #6 volume overload Plan: #1 continue with diuretics. Creatinine improving #2 avoid nephrotoxic agents and hypotensive episodes.
[2019-05-28 11:57] LABS: Glucose,Whole Blood 247 mg/dL (75-99)
[2019-05-28] MEDS: METOPROLOL TARTRATE 50 MG TAB PO SCH ×3 (12:17→21:37)
--- NOTE | 2019-05-28 15:02 | P.PN ---
Subjective this is a pleasant 63 years old male with past medical history of COPD not on home oxygen or steroids, status post cardiac arrest in 2016 and he follows up with Dr. Saavedra salad chef, diabetes mellitus, hypertension, hyperlipidemia, sleep apnea on CPAP, previous smoker since 2009 he quit. to presents because of worsening dyspnea of one week duration associated with cough and white phlegm especially when he takes his inhaler. Associated with o rthopnea and paroxysmal nocturnal dyspnea but no chest pain. He denies abdominal pain, no headache, no vomiting, no change in urine or bowel habits. No fever vitals on admission showing tachycardia and high blood pressure 190/95. He was immediately placed on BiPAP. Labs showingunremarkable CBC and INR, sodium 132, potassium 3.4, creatinine is 3.9. Lactic acid 1.5, AST 75 and ALT 41.. Chest x-ray showing fluid overload. Patient was started on nitroglycerin drip and given 1 dose of Lasix 80 mg. further work up came back positive for influenza A and pt was started on Tamiflu,, troponin is elevated at 2.17, pt is admitted to ICU, with nitro drip and lasix drip, c/w BiPAP , consult critical care team, c/w asprin ,and steroid and bronchodilators and heparin prognosis is guarded given multiple and complex medical problems 05/22/2019 Patient remains in the ICU, he is currently on BiPAP patients with FiO2 -40%, which is lowered compared to last night. Patient is breathing is better and he says more than 50% improved. He still denies chest pain, no headache. No nausea vomiting. No sweating. Is still tachypneic with a preserved rate 30, other vitals are stable. CBC is stable. Sodium stable at 131, creatinine is worsened and 4.6. Renal ultrasound was unremarkable. His troponin is trending down from 2.1 down to 1.6. He remains on droplet isolation for positive for influenza A. Chest x-ray, per radiology showing some improvement in the right side with patchy consolidation of the left lower side. Chest x-ray reviewed by me showing significant improvement on radiation especially in the right side. Patient remains on Lasix drip at 10, no nitro drip. He remains on BiPAP machine. Cardiology input is appreciated, they recommended echocardiogram. Patient currently remains on Tamiflu, and steroids. Continue with aspirin. Nephrology consult is called. 05/23/2019 Patient is seen in the ICU. His breathing is improving with a air entry on auscultation. He is currently on high flow nasal cannula at 15 L/minutes. Patient can't really with no much difficulty. However patient had use BiPAP at night. He has mild leukocytosis of 11.6. Potassium was severely low at 2.6 and calcium 6.2. This will replaced. Hold Lasix drip for now for hypokalemia and high creatinine. Insulin drip was stopped and patient was started on insulin 70:30 mm going to follow-up glucose level and adjust dose accordingly. Also patient remains on insulin drip. He remains on Tamiflu on Zosyn, remains on IV steroids. And continue with hydralazine and clonidine with Norvasc and losartan for blood pressure control. Aspirin has been added. Labs showing worsening creatinine of 5.4. Chest x-ray: Pneumonia versus edema. However is improved from admission. Leukocytosis at 11.9 K. 05/24/2019 Patient is awake, his breathing is little better than yesterday however still on high flow oxygen at 15 L/m via nasal cannula. History is looks a bit tight and repeat chest x-ray is requested. Patient needs and BiPAP at night. He feels some nausea. He also is constipated and lactulose has been ordered. Vitals looks stable. Creatinine is stable at 5.4, potassium 3.2 and with calcium 6.0, sugars to 266-314. Increase his insulin to 40 units twice a day. He is currently on Lasix 40 mg twice daily however wanted to be increased, this on repeat chest x-ray. Patient is making good urine output and will follow up with auto accessories installer for possible need for hemodialysis. ProBNP is improving from 6890 down to 4600 05/25/2019 patient remains in the ICU. He feels better. He is requiring less oxygen on high flow cannula. He didn't need BiPAP at night. Vitas looks stable. we are replacing his calcium. Chest x-ray showing improvement and he is needing this Lasix. He has to bowel movement on lactulose and he is happy about that, he does not want to lower the dose of lactulose when asked today.other than That his sugar is better controlled although it's on the high side.we going to increase his insulin 55 units twice a day 05/26/2019 would be downgraded today to the select unit . His breathing is significantly improved and his breathing more easily now. No chest pain. He has bowel movement. Vitas looks stable. Labs reviewed with improvement in the WBC down to 10.8. Creatinine 4.7. Low calcium is been replaced. Tamiflu has been discontinued. Chest x-ray from today showing stable airspace disease 05/27/2019 Patient keep improving, his breathing more ea and his leukocytosis improvement 10.8 K. sily today. Vital signs stable, blood pressure on the high side 175/80, also he is on Solu-Medrol. Labs showing improvement creatinine to 4.3, he is saturating 95% on 3 L oxygen and breathing more quietly. Patient showing significant improvement 05/28/2019 Patient's remains in the ICU for MedSurg overflow without telemetry. Patient breathing quietly. Baseline blood sugar was elevated today, his insulin dose was increased from 50 up to 65 units twice a day. Patient is needing higher dose of insulin because he is on steroids. Also for the same reason patient blood pressure was trending up, this morning 189/54, his metoprolol dose was i ncreased from 25 to 50 mg, patient checked for oxygen and probably he will need home oxygen. A consult for binder caser was placed. Patient needs to stay in the hospital for monitoring his blood pressure, blood sugar, breathing pattern. He is also remains on IV antibiotics, IV Lasix, and Solu-Medrol. However patient is improving significantly and gradually Objective - Vital Signs Vital signs: Vital Signs Temp 98.7 F 05/28/19 14:00 Pulse 82 05/28/19 14:00 Resp 16 05/28/19 14:00 BP 165/75 05/28/19 14:00 Pulse Ox 96 05/28/19 14:00 Intake & Output 05/27/19 05/28/19 05/28/19 18:59 06:59 18:59 Intake Total 1248 240 Output Total 1700 2250 1200 Balance - Weight 105.2 kg 103.8 kg Intake: IV 260 240 0.9 260 140 Piperacillin-Tazobactam 3 100 .375 gm In Sodium Chloride 0.9% 100 ml @ 25 mls/hr IVPB Q12HR [facility] Rx #:[id number] Oral 988 Output: Urine 1700 2250 1200 Other: Voiding Method Urinal # Voids 1 - Exam GENERAL: The patient is alert and oriented x3, not in any acute distress. Well developed, well nourished. HEENT: Pupils are round and equally reacting to light. EOMI. No scleral icterus. No conjunctival pallor. Normocephalic, atraumatic. No pharyngeal erythema. No thyromegaly. CARDIOVASCULAR: S1 and S2 present. No murmurs, rubs, or gallops. -PULMONARY: Chest is clear to auscultation, bilateral scattered wheezing with bilateral coarse crepitation ABDOMEN: Soft, nontender, nondistended, normoactive bowel sounds. No palpable organomegaly. MUSCULOSKELETAL: No joint swelling or deformity. -EXTREMITIES: No cyanosis, clubbing,. Bilateral leg edema, pitting NEUROLOGICAL: Gross neurological examination did not reveal any focal deficits. SKIN: No rashes. No petechiae - Labs CBC & Chem 7: 05/26/19 05:29 05/28/19 04:48 Labs: Abnormal Lab Results - Last 24 Hours (Table) 05/27/19 05/27/19 05/28/19 Range/Units 17:03 21:08 04:48 BUN 86 H (9-20) mg/dL Creatinine 3.75 H (0.66-1.25) mg/dL Glucose 261 H (74-99) mg/dL POC Glucose (mg/dL) 322 H 441 H (75-99) mg/dL Calcium 6.6 L (8.4-10.2) mg/dL 05/28/19 05/28/19 Range/Units 06:43 11:56 BUN (9-20) mg/dL Creatinine (0.66-1.25) mg/dL Glucose (74-99) mg/dL POC Glucose (mg/dL) 233 H 247 H (75-99) mg/dL Calcium (8.4-10.2) mg/dL Microbiology - Last 24 Hours (Table) 05/21/19 13:54 Blood Culture - Final Blood No Growth after 144 hours Assessment and Plan Assessment: acute pulmonary edema with acute congestive heart failure Hypertensive urgency, improved Influenza A infection possible acute COPD exacerbation acute hypoxic respiratory failure Acute kidney injury on chronic kidney disease CKD, stage III hypokalemia diabetes mellitus Hypertension Hyperlipidemia Sleep apnea on CPAP/BiPAP Plan: this is a pleasant 63 years old male who presents with acute renal failure and respiratory failure from fluid congestion of the lungs. Continue with oxygen nasal cannula. Following recommendation by auto accessories installer. Continue with Lasix. Follow-up recommendation by salad chef, auto accessories installer and cheese cutter. Continue with BiPAP as needed at night. Continue with high flow oxygen via nasal cannula. Continue with steroids and antibiotics. Continue with aspirin, and Labs and medication were reviewed.. Continue same treatment. Continue with symptomatic treatment. Resume home medication. Monitor lytes and vitals. DVT and GI prophylaxis. Further recommendations of the clinical course of the patient DVT prophylaxis: Subcutaneous heparin GI Prophylaxis: Pepcid PT/OT: Pending Prognosis is guarded
[2019-05-28 16:48] LABS: Glucose,Whole Blood 278 mg/dL (75-99)
[2019-05-28 21:04] LABS: Glucose,Whole Blood 179 mg/dL (75-99)
[2019-05-29 04:59] LABS: Calcium 6.6 mg/dL (8.4-10.2); Potassium 4.4 mmol/L (3.5-5.1)
[2019-05-29 06:57] LABS: Glucose,Whole Blood 113 mg/dL (75-99)
[2019-05-29] MEDS: INSULIN ASPART (NovoLOG) 100 UNIT/ML VIAL SQ SCH ×3 (07:08→12:01)
[2019-05-29] MEDS: PANTOPRAZOLE 40 MG TABLET PO SCH (07:11)
[2019-05-29] MEDS: INSULN ASP PRT/INSULIN ASPART 100 UNIT/ML 10 ML VIAL SQ SCH (07:11)
[2019-05-29] MEDS: IPRATROPIUM-ALBUTEROL 3 ML NEB INHALATION SCH ×2 (07:46→10:52)
--- NOTE | 2019-05-29 07:49 | XR ---
EXAMINATION TYPE: XR chest 2V DATE OF EXAM: 05/29/2019 COMPARISON: 05/26/2019 INDICATION: Follow-up CHF and pneumonia, short of breath TECHNIQUE: Frontal and lateral views of the chest are obtained. FINDINGS: The heart size is normal. The pulmonary vasculature is normal. There appears be some improving infiltrate in the periphery of the right lung and in the retrocardiac left lower lobe. Residual remains. IMPRESSION: 1. There is residual bilateral infiltrates, improving from comparison. Continued follow-up is recomme nded.
[2019-05-29 09:41] VITALS: BP 152/71; PULSE 72; RESP 20; TEMP 97.8
[2019-05-29] MEDS: methylPREDNISolone SOD SUCCI 40 MG/ML 1 ML VIAL IV SCH ×2 (09:42→11:04)
[2019-05-29] MEDS: HEPARIN SODIUM,PORCINE 5,000 UNIT/ML 1 ML VIAL SQ SCH (09:42)
[2019-05-29] MEDS: FUROSEMIDE 10 MG/ML 4 ML VIAL IV SCH (09:42)
[2019-05-29] MEDS: PIPERACILLIN-TAZOBACTAM 3.375 GM in SODIUM CHLORIDE 0.9% 100 ML IVPB SCH ×2 (09:42→11:04)
[2019-05-29] MEDS: hydrALAZINE HCL 50 MG TAB PO SCH (09:43)
[2019-05-29] MEDS: METOPROLOL TARTRATE 50 MG TAB PO SCH (09:43)
[2019-05-29] MEDS: ASPIRIN 81 MG PO SCH (09:43)
[2019-05-29] MEDS: amLODIPine 10 MG TAB PO SCH (09:43)
[2019-05-29] MEDS: GABAPENTIN 100 MG CAP PO SCH (09:43)
[2019-05-29] MEDS: cloNIDine HCL 0.1 MG TAB PO SCH (09:43)
[2019-05-29] MEDS ORDERED: FUROSEMIDE 40 MG TAB PO SCH ×2 (10:06→16:00)
--- NOTE | 2019-05-29 10:20 | P.PN ---
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 Patient presented to the ER with 1 week history of shortness of breath cough and wheezing. He was also complaining of few pillows orthopnea, paroxysmal nocturnal dyspnea, he had no fever no chills no hemoptysis no chest pain. No nausea no vomiting no abdominal pain no melena no hematemesis. Upon arrival, patient was tachycardic, hypertensive with a blood pressure of 190/95. Chest x- ray showed evidence of pulmonary edema. Labs showed no evidence of leukocytosis, his ABG on 40% FiO2 showed a pO2 of 64 pCO2 of 32, pH of 7.36, Low bicarb of 19, anion gap of 17, BUN of 67 and creatinine of 3.94, elevated troponin of 2.17, and elevated BNP of 6890. He also tested positive for influenza type A. Patient was admitted, placed on BiPAP, placed on bronchodilators, steroids, Lasix drip, Tamiflu, empiric antibiotics, and this consult was initiated. Patient is not in the ICU, responding well to diuresis, feeling better breathing easier, however he remains on BiPAP at IPAP of 16 EPAP of 6 FiO2 of 50%. O2 saturation is 94%. Repeat labs this morning showed a blood sugar of 333, BUN is 83 creatinine 4.60 bicarb is 14 and anion gap of 20. Patient was reevaluated today on 05/23/2019, remains in the ICU, continues to have a good urine output on Lasix drip, renal functioning is getting a bit worse, hence the Lasix was discontinued. Chest x-ray continues to show interstitial edema and what seems to be a right upper lobe consolidation, possible pneumonia. Although the possibility of atypical pulmonary edema is not entirely ruled out. Patient is empirically on antibiotics including vancomycin and Zosyn. Pro-calcitonin level was ordered. Patient is on 5 L nasal cannula. Electrolytes showed low potassium being corrected. Bicarb is 20. BUN is 99 creatinine is 5.49. Admission creatinine was 3.94, patient does have history of chronic stage III renal failure. Patient is feeling better breathing easier compared to how he felt on admission. He is on Tamiflu, diuretics which were discontinued this morning, and antibiotics. Hardly any cough, no wheezing, he does have shortness of breath. And maintained presently on 5 L nasal cannula. Patient was reevaluated today on 05/24/2019, remains in the intensive care unit, he is on high flow nasal cannula, O2 saturation is marginal, received a dose of Lasix earlier today, and last night he had an episode of increased shortness of breath, desaturation, coughing and wheezing, placed on BiPAP. Off BiPAP at 4:00 this morning. Has been off and on a high flow nasal cannula since 4 AM. His overall pulmonary status remains marginal. Chest x-ray this morning is pending. Presently the patient is feeling a bit better, however he did receive earlier 40 mg of Lasix IV push. Remains on broad-spectrum antibiotics, remains on bronchodilators, remains on steroids. CBC is relatively normal electrolytes showed low potassium of 3.1 renal functioning showed BUN of 111 creatinine 5.48. Similar to yesterday. Pro-calcitonin level is elevated, it is 1.11, hence we'll continue antibiotics. Reevaluated today on 05/25/2019, remains in the intensive care unit, remains on high flow nasal cannula, patient is feeling better clinically less shortness of breath, no cough no wheezing no fever no chills no hemoptysis. His chest x-ray is showing definite improvement in his interstitial edema and in his pneumonia. However it's not completely resolved. Patient remains on Lasix at 40 mg IV push twice a day. Definite improvement compared to the last few days clinically and radiographically. Reevaluated today on 05/26/2019, patient continues to respond well to treatment with diuretics and antibiotics for congestive heart failure and for what seems to be a right upper lobe pneumonia. He is down to 6 L nasal cannula, remains on Lasix at 40 mg IV push every 12 hours. No major issues overnight. Chest x-ray was reviewed, continues to have significant amount of interstitial edema and right upper lobe infiltrate. Hence we'll continue present treatment, and I plan to transfer the patient out of the ICU to a monitor bed on the floor or possibly selective bed. WBC count is 10.8 hemoglobin is 10.5 twice are normal BUN is a bit down 104 creatinine is also a bit down 4.74 compared to yesterday. On 05/27/2019 patient seen in follow-up in the intensive care unit, patient is weak and alert, he sitting up in the chair in no acute distress, currently on 4 L of oxygen, has not required BiPAP support last night, physical exam reveals diminished breath sounds at the bases, no significant rhonchi or wheezing, today's chest x-ray still shows bilateral infiltrates, patient is diuresing, and he is in -1540 mL fluid balance, signs are stable, sinus mechanism with a controlled rate no fever or chills, culture has shown no growth. Remains on Zosyn, IV steroids, nebulized bronchodilators, and Lasix dose was adjusted today, dropped down to 40 mg every 12 hours. Today's labs have been reviewed, electrodes are within normal limits, B1 is 95 creatinine is 4.33, and nephrology service is following. On 05/28/2019 patient seen in follow-up in the intensive care unit, he is awake and alert, FiO2 is down to 3 L, and her pulse ox is 95%, states his breathing is improving, he remains on IV Lasix and patient is in -1540 mL fluid balance over the last 24 hours, lower extremity edema is improving, breathing easier, lung sounds are positive for a few scattered rhonchi, good air entry noted bilaterally. No fever or chills. It is labs have been noted, electrolytes are within normal limits, some improvement in his renal profile, B1 is down to 86 and creatinine 3.75. It is on IV steroids, and Zosyn for empiric antibiotic coverage, his had no fever or chills. The patient is seen today 05/29/2019 in follow-up in the intensive care unit. He is currently sitting up in a chair at the bedside. Awake and alert in no acute distress. Feeling back to his baseline and hoping to go home today. He does have home oxygen in place now. He is maintaining O2 saturation the 90s on 3 L/m per nasal cannula. Currently afebrile. Hemodynamically stable. Blood cultures reveal no growth. Sodium 141. Potassium 4.4. chloride 108. Bicarb 20. Creatinine 3.55. He is continued on bronchodilators, IV Solu-Medrol, Zosyn, diuretics. Chest x-ray shows residual bilateral infiltrates with improvement compared to previous. Objective - Vital Signs Vital signs: Vital Signs Temp 97.8 F 05/29/19 09:30 Pulse 72 05/29/19 09:30 Resp 20 05/29/19 09:30 BP 152/71 05/29/19 09:30 Pulse Ox 94 L 05/29/19 09:30 Intake & Output 05/28/19 05/29/19 05/29/19 18:59 06:59 18:59 Output Total 1200 350 200 Balance -1200 -350 -200 Weight 105 kg Output: Urine 1200 350 200 Other: Voiding Method Urinal # Voids 1 # Bowel Movements 1 - Exam GENERAL EXAM: Alert, very pleasant, 63-year-old male patient, on 3 L of oxygen, pulse ox of 94%, comfortable in no apparent distress. HEAD: Normocephalic/atraumatic. EYES: Normal reaction of pupils, equal size. Conjunctiva pink, sclera white. NOSE: Clear with pink turbinates. THROAT: No erythema or exudates. NECK: No masses, no JVD, no thyroid enlargement, no adenopathy. CHEST: No chest wall deformity. Symmetrical expansion. LUNGS: Equal air entry with scattered rhonchi CVS: Regular rate and rhythm, normal S1 and S2, no gallops, no murmurs, no rubs ABDOMEN: Soft, nontender. No hepatosplenomegaly, normal bowel sounds, no guarding or rigidity. EXTREMITIES: No clubbing, 1+ bipedal edema, no cyanosis, 2+ pulses and upper and lower extremities. MUSCULOSKELETAL: Muscle strength and tone normal. SPINE: No scoliosis or deformity SKIN: No rashes CENTRAL NERVOUS SYSTEM: No focal deficits, tone is normal in all 4 extremities. PSYCHIATRIC: Alert and oriented -3. Appropriate affect. Intact judgment and insight. - Labs CBC & Chem 7: 05/26/19 05:29 05/29/19 04:13 Labs: Abnormal Lab Results - Last 24 Hours (Table) 05/28/19 05/28/19 05/28/19 Range/Units 11:56 16:47 21:03 Chloride (98-107) mmol/L Carbon Dioxide (22-30) mmol/L BUN (9-20) mg/dL Creatinine (0.66-1.25) mg/dL Glucose (74-99) mg/dL POC Glucose (mg/dL) 247 H 278 H 179 H (75-99) mg/dL Calcium (8.4-10.2) mg/dL 05/29/19 05/29/19 Range/Units 04:13 06:55 Chloride 108 H (98-107) mmol/L Carbon Dioxide 20 L (22-30) mmol/L BUN 83 H (9-20) mg/dL Creatinine 3.55 H (0.66-1.25) mg/dL Glucose 133 H (74-99) mg/dL POC Glucose (mg/dL) 113 H (75-99) mg/dL Calcium 6.6 L (8.4-10.2) mg/dL Assessment and Plan Assessment: #1. Acute hypoxic respiratory failure secondary to acute congestive heart failure, diastolic dysfunction, echocardiogram showed preserved LV function #2. Possible right upper lobe pneumonia, possibly community-acquired, Procalcitonin level 1.11 #3. Hypertensive urgency, on presentation, remains on treatment for blood pressure, blood pressures currently better controlled #4. Acute influenza A infection #5. Acute exacerbation of COPD #6. Type 2 diabetes, poorly controlled associated with diabetic nephropathy, previously diagnosed with kidney biopsy #7. Hypertensive nephrosclerosis and diabetic nephropathy #8. Dyslipidemia #9. Obstructive sleep apnea on CPAP at home #10. Acute on chronic kidney injury Plan: The patient was seen and evaluated by Dr. Anglin. Chest x-ray and labs reviewed. The patient is stable from the pulmonary standpoint. The plan is for possible discharge to home. Home oxygen is in place. He will follow up with Dr. Mo in our office. Continue bronchodilators. Continue prednisone burst and taper starting at 40 mg daily for 4 days. Complete course of antibiotics. He is encouraged to call sooner if any recurrence of symptoms or other questions or concerns. I, the cosigning physician, performed a history & physical examination of the patient. Lungs sounds with few scattered rhonchi. Maintaining good O2 saturations in the 90s on 3 L/m per nasal cannula. I discussed the assessment and plan of care with my nurse practitioner, Rae Valdez. I attest to the above note as dictated by her.
--- NOTE | 2019-05-29 11:07 | P.PN ---
Subjective Progress Note Date: 05/29/19 Seen and examined for the follow-up of acute kidney injury. Feels better. No nausea vomiting diarrhea. Objective - Vital Signs Vital signs: Vital Signs Temp 97.8 F 05/29/19 09:30 Pulse 72 05/29/19 09:30 Resp 20 05/29/19 09:30 BP 152/71 05/29/19 09:30 Pulse Ox 94 L 05/29/19 09:30 Intake & Output 05/28/19 05/29/19 05/29/19 18:59 06:59 18:59 Output Total 1200 350 200 Balance -1200 -350 -200 Weight 105 kg Output: Urine 1200 350 200 Other: Voiding Method Urinal Urinal # Voids 1 # Bowel Movements 1 - Exam No acute distress S1-S2 heard Decreased breath sounds bases Abdomen soft Edema - Labs CBC & Chem 7: 05/26/19 05:29 05/29/19 04:13 Labs: Abnormal Lab Results - Last 24 Hours (Table) 05/28/19 05/28/19 05/28/19 Range/Units 11:56 16:47 21:03 Chloride (98-107) mmol/L Carbon Dioxide (22-30) mmol/L BUN (9-20) mg/dL Creatinine (0.66-1.25) mg/dL Glucose (74-99) mg/dL POC Glucose (mg/dL) 247 H 278 H 179 H (75-99) mg/dL Calcium (8.4-10.2) mg/dL 05/29/19 05/29/19 Range/Units 04:13 06:55 Chloride 108 H (98-107) mmol/L Carbon Dioxide 20 L (22-30) mmol/L BUN 83 H (9-20) mg/dL Creatinine 3.55 H (0.66-1.25) mg/dL Glucose 133 H (74-99) mg/dL POC Glucose (mg/dL) 113 H (75-99) mg/dL Calcium 6.6 L (8.4-10.2) mg/dL Assessment and Plan Assessment: #1 nonoliguric acute kidney injury secondary to septic ATN/CRS type I. #2 hypertension with chronic kidney disease #3 chronic kidney disease stage III baseline creatinine 1.5-1.6 secondary to diabetic kidney disease #4 influenza A on Tamiflu #5 acute on chronic diastolic CHF #6 volume overload, improving with diuresis Plan: #1 continue with diuretics. Creatinine stable and improving. #2 avoid nephrotoxic agents and hypotensive episodes. #3 change to Lasix 40 mg by mouth twice a day. Follow up in the office in a week. If renal function does not improve, check serology and plan biopsy as outpatient.
[2019-05-29 11:54] LABS: Glucose,Whole Blood 152 mg/dL (75-99)
--- NOTE | 2019-05-31 00:44 | CDI ---
Documentation Clarification Form Date: 05/31/2019 From: MEKA STALEY Phone: If you have a question about this query, please contact Bibi Parkinson Ecommerce Analyst at [phone] between 8am and 5pm. Admit Date: 05/21/19 Discharge Date: 05/29/2019 Patient Name: Julio César Panchal Visit Number: [id number] ATTENTION: The Clinical Documentation Specialists (CDI) and [facility] Coding Staff appreciate your assistance in clarifying documentation. Please respond to the clarification below the line at the bottom and electronically sign. The CDI & [facility] Coding staff will review the response and follow-up if needed. Please note: Queries are made part of the Legal Health Record. If you have any questions, please contact the author of this message via ITS. Dear Cullen Newell, The patient presented with the Congestive heart failure, Acute pulmonary edema, Acute respiratory distress syndrome in adult, History/Risk Factors: Influenza A, COPD exacerbation, Acute respiratory failure. WBC :9.8 Lactic acid: 1.5 Blood cultures: no growth. Vitals signs on admission: Pulse Rate 114 H 105 H , Respiratory 20 , Blood Pressure 190/95 Other Clinical Indicators: Treatment: Antibiotics, Tamiflu Antibiotics: vancomycin, zosyn In [place] 05/23 Progress notes documented as "Possible sepsis from pneumonia" & 05/28 Vitaliy Mckeon Progress note documented as "nonoliguric acute kidney injury secondary to septic ATN/CRS type I". In your professional opinion, please clarify if these findings signify one of the following conditions, whether the condition is POA, and cause, if known: Condition Sepsis ruled out SIRS, without underlying infectious process Sepsis Other, please specify Unable to determine Present on Admission Yes No i think pt did not had sepsis MTDD
--- NOTE | 2019-06-16 21:34 | P.DS ---
Providers Date of admission: 05/21/19 15:56 Expected date of discharge: 05/29/19 Attending physician: Cullen Santoro MD Consults: 05/21/19 14:35 Consult Physician Urgent Consulting Provider: Gretchen Landrum Consult Reason/Comments: mel and fluid overload Do you want consulting provider notified?: Yes 05/21/19 14:43 Consult Physician Urgent Consulting Provider: Leigh Luciano Consult Reason/Comments: possilbe acute heart failure Do you want consulting provider notified?: Yes 05/21/19 15:56 Consult Physician Routine Consulting Provider: Tone Shields Consult Reason/Comments: pulmonary edema, ARDS, influenza Do you want consulting provider notified?: Already Contacted Primary care physician: Tanna Guillory Hospital Course: Discharge diagnosis acute pulmonary edema with acute congestive heart failure Hypertensive urgency, improved Influenza A infection possible acute COPD exacerbation acute hypoxic respiratory failure Acute kidney injury on chronic kidney disease CKD, stage III hypokalemia diabetes mellitus Hypertension Hyperlipidemia Sleep apnea on CPAP/BiPAP Hospital course this is a pleasant 63 years old male with past medical history of COPD not on h ome oxygen or steroids, status post cardiac arrest in 2016 and he follows up with Dr. Saavedra speck dyer, diabetes mellitus, hypertension, hyperlipidemia, sleep apnea on CPAP, previous smoker since 2009 he quit. to presents because of worsening dyspnea of one week duration associated with cough and white phlegm especially when he takes his inhaler. Associated with orthopnea and paroxysmal nocturnal dyspnea but no chest pain. He denies abdominal pain, no headache, no vomiting, no change in urine or bowel habits. No fever vitals on admission showing tachycardia and high blood pressure 190/95. He was immediately placed on BiPAP. Labs showingunremarkable CBC and INR, sodium 132, potassium 3.4, creatinine is 3.9. Lactic acid 1.5, AST 75 and ALT 41.. Chest x-ray showing fluid overload. Patient was started on nitroglycerin drip and given 1 dose of Lasix 80 mg. further work up came back positive for influenza A and pt was started on Tamiflu,, troponin is elevated at 2.17, pt is admitted to ICU, with nitro drip and lasix drip, c/w BiPAP , consult critical care team, c/w asprin ,and steroid and bronchodilators and heparin prognosis is guarded given multiple and complex medical problems 05/22/2019 Patient remains in the ICU, he is currently on BiPAP patients with FiO2 -40%, which is lowered compared to last night. Patient is breathing is better and he says more than 50% improved. He still denies chest pain, no headache. No nausea vomiting. No sweating. Is still tachypneic with a preserved rate 30, other vitals are stable. CBC is stable. Sodium stable at 131, creatinine is worsened and 4.6. Renal ultrasound was unremarkable. His troponin is trending down from 2.1 down to 1.6. He remains on droplet isolation for positive for influenza A. Chest x-ray, per radiology showing some improvement in the right side with patchy consolidation of the left lower side. Chest x-ray reviewed by me showing significant improvement on radiation especially in the right side. Patient remains on Lasix drip at 10, no nitro drip. He remains on BiPAP machine. Cardiology input is appreciated, they recommended echocardiogram. Patient currently remains on Tamiflu, and steroids. Continue with aspirin. Nephrology consult is called. 05/23/2019 Patient is seen in the ICU. His breathing is improving with a air entry on auscultation. He is currently on high flow nasal cannula at 15 L/minutes. Patient can't really with no much difficulty. However patient had use BiPAP at night. He has mild leukocytosis of 11.6. Potassium was severely low at 2.6 and calcium 6.2. This will replaced. Hold Lasix drip for now for hypokalemia and high creatinine. Insulin drip was stopped and patient was started on insulin 70:30 mm going to follow-up glucose level and adjust dose accordingly. Also patient remains on insulin drip. He remains on Tamiflu on Zosyn, remains on IV steroids. And continue with hydralazine and clonidine with Norvasc and losartan for blood pressure control. Aspirin has been added. Labs showing worsening creatinine of 5.4. Chest x-ray: Pneumonia versus edema. However is improved from admission. Leukocytosis at 11.9 K. 05/24/2019 Patient is awake, his breathing is little better than yesterday however still on high flow oxygen at 15 L/m via nasal cannula. History is looks a bit tight and repeat chest x-ray is requested. Patient needs and BiPAP at night. He feels some nausea. He also is constipated and lactulose has been ordered. Vitals looks stable. Creatinine is stable at 5.4, potassium 3.2 and with calcium 6.0, sugars to 266-314. Increase his insulin to 40 units twice a day. He is currently on Lasix 40 mg twice daily however wanted to be increased, this on repeat chest x-ray. Patient is making good urine output and will follow up with afterschool for possible need for hemodialysis. ProBNP is improving from 6890 down to 4600 05/25/2019 patient remains in the ICU. He feels better. He is requiring less oxygen on high flow cannula. He didn't need BiPAP at night. Vitas looks stable. we are replacing his calcium. Chest x-ray showing improvement and he is needing this Lasix. He has to bowel movement on lactulose and he is happy about that, he does not want to lower the dose of lactulose when asked today.other than That his sugar is better controlled although it's on the high side.we going to increase his insulin 55 units twice a day 05/26/2019 would be downgraded today to the select unit . His breathing is significantly improved and his breathing more easily now. No chest pain. He has bowel movement. Vitas looks stable. Labs reviewed with improvement in the WBC down to 10.8. Creatinine 4.7. Low calcium is been replaced. Tamiflu has been discontinued. Chest x-ray from today showing stable airspace disease 05/27/2019 Patient keep improving, his breathing more ea and his leukocytosis improvement 10.8 K. sily today. Vital signs stable, blood pressure on the high side 175/80, also he is on Solu-Medrol. Labs showing improvement creatinine to 4.3, he is saturating 95% on 3 L oxygen and breathing more quietly. Patient showing significant improvement 05/28/2019 Patient's remains in the ICU for MedSurg overflow without telemetry. Patient breathing quietly. Baseline blood sugar was elevated today, his insulin dose was increased from 50 up to 65 units twice a day. Patient is needing higher dose of insulin because he is on steroids. Also for the same reason patient blood pressure was trending up, this morning 189/54, his metoprolol dose was increased from 25 to 50 mg, patient checked for oxygen and probably he will need home oxygen. A consult for director of casework department was placed. Patient needs to stay in the hospital for monitoring his blood pressure, blood sugar, breathing pattern. He is also remains on IV antibiotics, IV Lasix, and Solu-Medrol. However patient is improving significantly and gradually. 05/29/2019 He is currently sitting up in a chair at the bedside. Awake and alert in no acute distress. Feeling back to his baseline and hoping to go home today. He does have home oxygen in place now. He is maintaining O2 saturation the 90s on 3 L/m per nasal cannula. Currently afebrile. Hemodynamically stable. Blood cultures reveal no growth. Sodium 141. Potassium 4.4. chloride 108. Bicarb 20. Creatinine 3.55. He is continued on bronchodilators, IV Solu-Medrol, Zosyn, diuretics. Chest x-ray shows residual bilateral infiltrates with improvement compared to previous. Patient was cleared by pulmonary. Patient wants to be discharged home today. PHYSICAL examination GENERAL: The patient is alert and oriented x3, not in any acute distress. Well developed, well nourished. HEENT: Pupils are round and equally reacting to light. EOMI. No scleral icterus. No conjunctival pallor. Normocephalic, atraumatic. No pharyngeal erythema. No thyromegaly. CARDIOVASCULAR: S1 and S2 present. No murmurs, rubs, or gallops. -PULMONARY: Chest is clear to auscultation, bilateral scattered wheezing with bilateral coarse crepitation ABDOMEN: Soft, nontender, nondistended, normoactive bowel sounds. No palpable organomegaly. MUSCULOSKELETAL: No joint swelling or deformity. -EXTREMITIES: No cyanosis, clubbing,. Bilateral leg edema, pitting NEUROLOGICAL: Gross neurological examination did not reveal any focal deficits. SKIN: No rashes. No petechiae Vital Signs Temp 97.8 F 05/29/19 09:30 Pulse 72 05/29/19 09:30 Resp 20 05/29/19 09:30 BP 152/71 05/29/19 09:30 Pulse Ox 94 L 05/29/19 09:30 Intake & Output 05/28/19 05/29/19 05/29/19 18:59 06:59 18:59 Output Total 1200 350 200 Balance -1200 -350 -200 Weight 105 kg Output: Urine 1200 350 200 Other: Voiding Method Urinal # Voids 1 # Bowel Movements 1 Total time taken greater than 35 minutes including 18 minutes for counseling and coordination of care. Patient Condition at Discharge: Serious Plan - Discharge Summary Discharge Rx Participant: No New Discharge Prescriptions: New Amoxicillin/Potassium Clav [Augmentin 875-125 Tablet] 1 tab PO BID 5 Days #10 tab Furosemide [Lasix] 40 mg PO BID@0900,1600 #60 tab predniSONE See Taper PO DIRECTED #34 tab hydrALAZINE HCL [Apresoline] 100 mg PO TID #90 tab Aspirin 81 mg PO DAILY #30 chew Metoprolol Tartrate [Lopressor] 50 mg PO TID #90 tab Continue Tiotropium [place] [Spiriva Respimat] 2 puff INHALATION RT-DAILY Budesonide-Formot 160-4.5 Mcg [Symbicort 160-4.5 Mcg Inhaler] 2 puff INHALATION RT-BID Atorvastatin [Lipitor] 40 mg PO HS Albuterol Inhaler [Ventolin Hfa Inhaler] 2 puff INHALATION RT-Q4H PRN PRN Reason: Shortness Of Breath Insulin NPH Hum/Reg Insulin Hm [NovoLIN 70-30 100 UNIT/ML VIAL] 73 unit SQ QAM amLODIPine BESYLATE 10 mg PO DAILY Ferrous Sulfate [Iron] 325 mg PO DAILY Ammonium Lactate Cream [Lac-Hydrin 12% Cream] 1 applic TOPICAL DAILY Calcitriol 0.25 mcg PO Q7D Calcium Carbonate 500 mg PO TID Cholecalciferol (Vitamin D3) [Vitamin D3] 2,000 unit PO DAILY cloNIDine HCL [Catapres] 0.3 mg PO TID Doxazosin [Cardura] 2 mg PO DAILY Gabapentin [Neurontin] 100 mg PO BID Gentamicin 0.1% Cream 1 applic TOPICAL TID Hydrocortisone Cream [Hydrocortisone 1% Cream] 1 applic TOPICAL TID Insuln Asp Prt/Insulin Aspart [NovoLOG MIX 70-30 VIAL] 72 unit SQ HS Latanoprost/Pf [Latanoprost 0.005% Eye Drop] 1 drop BOTH EYES HS Magnesium 200 mg PO DAILY metFORMIN HCL 1,000 mg PO AC-BID Discontinued Losartan Potassium [Cozaar] 100 mg PO DAILY Hydrochlorothiazide 25 mg PO DAILY Cephalexin [Keflex] 250 mg PO QID Discharge Medication List Atorvastatin [Lipitor] 40 mg PO HS 11/03/14 [History] Budesonide-Formot 160-4.5 Mcg [Symbicort 160-4.5 Mcg Inhaler] 2 puff INHALATION RT-BID 11/03/14 [History] Tiotropium [place] [Spiriva Respimat] 2 puff INHALATION RT-DAILY 11/03/14 [History] Albuterol Inhaler [Ventolin Hfa Inhaler] 2 puff INHALATION RT-Q4H PRN 04/11/18 [History] Ferrous Sulfate [Iron] 325 mg PO DAILY 04/11/18 [History] Insulin NPH Hum/Reg Insulin Hm [NovoLIN 70-30 100 UNIT/ML VIAL] 73 unit SQ QAM 04/11/18 [History] amLODIPine BESYLATE 10 mg PO DAILY 04/11/18 [History] Ammonium Lactate Cream [Lac-Hydrin 12% Cream] 1 applic TOPICAL DAILY 05/23/19 [History] Calcitriol 0.25 mcg PO Q7D 05/23/19 [History] Calcium Carbonate 500 mg PO TID 05/23/19 [History] Cholecalciferol (Vitamin D3) [Vitamin D3] 2,000 unit PO DAILY 05/23/19 [History] Doxazosin [Cardura] 2 mg PO DAILY 05/23/19 [History] Gabapentin [Neurontin] 100 mg PO BID 05/23/19 [History] Gentamicin 0.1% Cream 1 applic TOPICAL TID 05/23/19 [History] Hydrocortisone Cream [Hydrocortisone 1% Cream] 1 applic TOPICAL TID 05/23/19 [History] Insuln Asp Prt/Insulin Aspart [NovoLOG MIX 70-30 VIAL] 72 unit SQ HS 05/23/19 [ History] Latanoprost/Pf [Latanoprost 0.005% Eye Drop] 1 drop BOTH EYES HS 05/23/19 [History] Magnesium 200 mg PO DAILY 05/23/19 [History] cloNIDine HCL [Catapres] 0.3 mg PO TID 05/23/19 [History] metFORMIN HCL 1,000 mg PO AC-BID 05/23/19 [History] Amoxicillin/Potassium Clav [Augmentin 875-125 Tablet] 1 tab PO BID 5 Days #10 tab 05/29/19 [Rx] Aspirin 81 mg PO DAILY #30 chew 05/29/19 [Rx] Furosemide [Lasix] 40 mg PO BID@0900,1600 #60 tab 05/29/19 [Rx] Metoprolol Tartrate [Lopressor] 50 mg PO TID #90 tab 05/29/19 [Rx] hydrALAZINE HCL [Apresoline] 100 mg PO TID #90 tab 05/29/19 [Rx] predniSONE See Taper PO DIRECTED #34 tab 05/29/19 [Rx] Follow up Appointment(s)/Referral(s): Gretchen Landrum MD [STAFF PHYSICIAN] - 1 Week (Please call and make appointment when regular business hours resume 05/30/2019) Pastora Cisse MD [Primary Care Provider] - 1-2 days (Please call for appointment when regular business hours resume 05/30/2019) [facility] [NON-STAFF] - As Needed [facility], [NON-STAFF] - 1-2 Days Saurav Mo MD [STAFF PHYSICIAN] - 1 Week (Please call and make appointment when regular business hours resume 05/30/2019) Patient Instructions/Handouts: Influenza Virus Vaccine (By injection), Heart Failure (GEN), Pulmonary Edema (GEN), Foot Care for People with Diabetes (GEN), Hypoglycemia in a Person with Diabetes (DC), Influenza (GEN), COPD (Chronic Obstructive Pulmonary Disease) (DC), Basic Carbohydrate Counting (GEN), Meal Planning with the Plate Method (DC), Diabetic Foot Ulcers (GEN), Hypertensive Crisis (GEN), Chronic Lung Disease and Infection Prevention (GEN), Energy Conservation Techniques (GEN), Hemoglobin A1c (GEN), Hypertension and Diabetes (GEN), What to Do if Your Blood Sugar is Low (GEN), Diabetes and Nutrition (GEN), Diabetes and Exercise (GEN) Discharge Disposition: HOME WITH HOME HEALTH SERVICES
== END 2019-05-29 14:52 | disposition home health service (06) | DRG 291 ==
LOC: EC 13:23 → 2SICU 15:56
PROVIDERS: ADMIT Internal Medicine; ATTEND Internal Medicine
PROC: 5A09457 Assistance with Respiratory Ventilation, 24-96 Consecutive Hours, Continuous Positive Airway Pressure (ICD-10-PCS; principal; 2019-05-21)
DX: I13.0 Hypertensive heart and chronic kidney disease with heart failure and stage 1 through stage 4 chronic kidney disease, or unspecified chronic kidney disease (principal); J10.00 Influenza due to other identified influenza virus with unspecified type of pneumonia; J96.01 Acute respiratory failure with hypoxia; I50.43 Acute on chronic combined systolic (congestive) and diastolic (congestive) heart failure; N17.0 Acute kidney failure with tubular necrosis; J44.1 Chronic obstructive pulmonary disease with (acute) exacerbation; J44.0 Chronic obstructive pulmonary disease with (acute) lower respiratory infection; E87.2 Acidosis; G47.33 Obstructive sleep apnea (adult) (pediatric); I16.0 Hypertensive urgency; K59.00 Constipation, unspecified; E87.6 Hypokalemia; E78.5 Hyperlipidemia, unspecified; N18.3 Chronic kidney disease, stage 3 (moderate); T50.2X5A Adverse effect of carbonic-anhydrase inhibitors, benzothiadiazides and other diuretics, initial encounter; E66.01 Morbid (severe) obesity due to excess calories; E11.319 Type 2 diabetes mellitus with unspecified diabetic retinopathy without macular edema; E11.22 Type 2 diabetes mellitus with diabetic chronic kidney disease; E11.65 Type 2 diabetes mellitus with hyperglycemia; E83.51 Hypocalcemia; Z79.4 Long term (current) use of insulin; Z79.899 Other long term (current) drug therapy; Z79.51 Long term (current) use of inhaled steroids; Z87.891 Personal history of nicotine dependence; Z88.1 Allergy status to other antibiotic agents; Z99.89 Dependence on other enabling machines and devices; Z80.9 Family history of malignant neoplasm, unspecified
CPT/HCPCS: 36415; 36600; 71045; 71046; 76770; 80048; 80053; 80202; 81001; 82330; 82805; 83605; 83735; 83880; 84132; 84145; 84484; 85025; 85610; 85730; 87040; 87502; 93005; 93306; 94640; 94644; 94660; 96365; 96372; 96375; 99291

== ENCOUNTER → 2019-09-25 | Outpatient (CLI) | payer MEDICARE, OTHER ==
[2019-09-25 09:44] LABS: Basophils % (A) 0 %; Eosinophils # (A) 0.3 k/uL (0-0.7); Eosinophils % (A) 4 %; HCT 36.2 % (39.0-53.0); HGB 11.9 gm/dL (13.0-17.5); Lymphocytes # (A) 1.4 k/uL (1.0-4.8); Lymphocytes % (A) 18 %; MCH 28.3 pg (25.0-35.0); MCHC 32.8 g/dL (31.0-37.0); MCV 86.2 fL (80.0-100.0); Mean Platelet Volume 6.7; Monocytes # (A) 0.5 k/uL (0-1.0); Monocytes % (A) 7 %; Neutrophils # (A) 5.4 k/uL (1.3-7.7); Neutrophils % (A) 71 %; Platelet Count 333 k/uL (150-450); WBC 7.7 k/uL (3.8-10.6)
[2019-09-25 16:28] LABS: African American GFR (CKD) 36.9 (60.0-200.0); Albumin 4.2 g/dL (3.80-4.90); Albumin/Globulin Ratio 1.75 (1.60-3.17); Anion Gap 9.9 mmol/L (4.00-12.00); BUN/Creat Ratio 25.71 Ratio (12.00-20.00); Calcium 8.4 mg/dL (8.7-10.3); Carbon Dioxide 20.1 mmol/L (21.6-31.8); Chol/HDL Ratio 3.88; Globulin 2.4 g/dL (1.6-3.3); LDL Cholesterol,Calculated 44.4 mg/dL (0.0-131.0); Non-African American GFR(CKD) 31.8 (60.0-200.0); Potassium 4.9 mmol/L (3.5-5.5); Total Bilirubin 0.2 mg/dL (0.2-1.2); Total Protein 6.6 g/dL (6.2-8.2); VLDL Calculation 30.6 mg/dL (5.00-40.00)
== END | disposition home or self-care (01) ==
LOC: LABWHC1 08:27
PROVIDERS: ATTEND Internal Medicine
DX: E11.9 Type 2 diabetes mellitus without complications (principal); N28.9 Disorder of kidney and ureter, unspecified; D64.9 Anemia, unspecified; R94.5 Abnormal results of liver function studies
CPT/HCPCS: 36415; 80053; 80061; 85025

== ENCOUNTER → 2020-01-08 | Outpatient (CLI) | payer MEDICARE, OTHER ==
[2020-01-08 19:28] LABS: African American GFR (CKD) 29.9 (60.0-200.0); Albumin 4.4 g/dL (3.80-4.90); Albumin/Globulin Ratio 1.69 (1.60-3.17); Anion Gap 10.5 mmol/L (4.00-12.00); BUN/Creat Ratio 12.4 Ratio (12.00-20.00); Calcium 8.8 mg/dL (8.7-10.3); Carbon Dioxide 22.5 mmol/L (21.6-31.8); Globulin 2.6 g/dL (1.6-3.3); Non-African American GFR(CKD) 25.8 (60.0-200.0); Potassium 4.7 mmol/L (3.5-5.5); Total Bilirubin 0.3 mg/dL (0.2-1.2)
== END | disposition home or self-care (01) ==
LOC: LABWHC1 13:42
PROVIDERS: ATTEND Internal Medicine Endocrinology, Diabetes & Metabolism
DX: E11.65 Type 2 diabetes mellitus with hyperglycemia (principal)
CPT/HCPCS: 36415; 80053

== ENCOUNTER → 2020-04-09 | Outpatient (CLI) | payer MEDICARE, OTHER ==
[2020-04-09 09:21] LABS: HCT 34.4 % (39.0-53.0); HGB 11.1 gm/dL (13.0-17.5); MCH 28.1 pg (25.0-35.0); MCHC 32.4 g/dL (31.0-37.0); MCV 86.8 fL (80.0-100.0); Mean Platelet Volume 6.6; Platelet Count 322 k/uL (150-450); RBC 3.96 m/uL (4.30-5.90); RDW 13.8 % (11.5-15.5); WBC 7.4 k/uL (3.8-10.6)
[2020-04-09 10:12] LABS: Appearance,Urine Clear (Clear); Bilirubin,Urine Negative (Negative); Blood,Urine Negative (Negative); Color,Urine Colorless; Glucose,Urine (UA) Negative (Negative); Ketones,Urine Negative (Negative); Leukocyte Esterase,Urine Small (Negative); Nitrite,Urine Negative (Negative); PH, Urine 6.5 (5.0-8.0); Protein,Urine 2+ (Negative); Specific Gravity,Urine 1.005 (1.001-1.035); Squamous Epithelial Cell,Urine <1 /hpf (0-4); Urobilinogen,Urine <2.0 mg/dL (<2.0); WBC,Urine 1 /hpf (0-5)
[2020-04-09 14:54] LABS: % Iron Saturation 17.39 (15.00-50.00); African American GFR (CKD) 28.5 (60.0-200.0); Albumin 4.1 g/dL (3.80-4.90); Albumin/Globulin Ratio 1.78 (1.60-3.17); Anion Gap 8.1 mmol/L (4.00-12.00); Calcium 8.5 mg/dL (8.7-10.3); Carbon Dioxide 21.9 mmol/L (21.6-31.8); Globulin 2.3 g/dL (1.6-3.3); Magnesium 1.6 mg/dL (1.5-2.4); Non-African American GFR(CKD) 24.6 (60.0-200.0); Phosphorus 4.2 mg/dL (2.4-5.1); Potassium 4.9 mmol/L (3.5-5.5); Total Bilirubin 0.2 mg/dL (0.2-1.2); Total Protein 6.4 g/dL (6.2-8.2); Uric Acid 8.4 mg/dL (3.7-8.7)
== END | disposition home or self-care (01) ==
LOC: LABWHC1 08:10
PROVIDERS: ATTEND Nurse Practitioner Family
DX: E55.9 Vitamin D deficiency, unspecified (principal); D63.1 Anemia in chronic kidney disease; N39.0 Urinary tract infection, site not specified; N25.81 Secondary hyperparathyroidism of renal origin; M10.9 Gout, unspecified; N18.30 Chronic kidney disease, stage 3 unspecified
CPT/HCPCS: 36415; 80053; 81001; 82306; 82728; 83540; 83550; 83735; 83970; 84100; 84550; 85027

== ENCOUNTER 2020-05-06 10:32 | Emergency (ER) | payer MEDICARE, OTHER ==
[2020-05-06 10:52] VITALS: RESP 18
--- NOTE | 2020-05-06 11:35 | XR ---
KUB HISTORY: Constipation KUB on 2 images Lung bases are clear. There are air-filled loops of bowel present without bowel distention. Retained fecal debris present throughout the distribution of the colon. No evident pneumoperitoneum. Postop ch amol noted to the right hip status post arthroplasty. Question heterotopic bone formation adjacent to the right hip. Degenerative disc changes are present in the visualized spine. IMPRESSION: Correlate for fecal stasis. Follow-up as indicated.
--- NOTE | 2020-05-06 12:25 | ED ---
Abdominal Pain HPI - General Chief Complaint: Abdominal Pain Stated Complaint: constipation Time Seen by Provider: 05/06/20 10:55 Source: patient, RN notes reviewed Mode of arrival: ambulatory Limitations: no limitations - History of Present Illness Initial Comments: 64-year-old male presents emergency Department with chief complaint of constipation. Patient states has not had a bowel movement in almost one week. Patient states that he's had an issue with this in the past with narcotic pain meds. Patient states he started on pain meds few months ago. Patient did try some magnesium citrate at home with no relief. He has no localized abdominal pain. No sick and crampy no dysuria no hematuria. Patient offers no other complaints. - Related Data Home Medications Medication Instructions Recorded Confirmed Atorvastatin [Lipitor] 40 mg PO HS 11/03/14 05/23/19 Budesonide-Formot 160-4.5 Mcg 2 puff INHALATION RT-BID 11/03/14 05/23/19 [Symbicort 160-4.5 Mcg Inhaler] Tiotropium [place] [Spiriva 2 puff INHALATION RT-DAILY 11/03/14 05/23/19 Respimat] Albuterol Inhaler (Mhu) [Ventolin 2 puff INHALATION RT-Q4H PRN 04/11/18 05/23/19 Hfa Inhaler (Mhu)] Ferrous Sulfate [Iron] 325 mg PO DAILY 04/11/18 05/23/19 Insulin NPH Hum/Reg Insulin Hm 73 unit SQ QAM 04/11/18 05/23/19 [NovoLIN 70-30 100 UNIT/ML VIAL] amLODIPine BESYLATE 10 mg PO DAILY 04/11/18 05/23/19 Ammonium Lactate Cream [Lac-Hydrin 1 applic TOPICAL DAILY 05/23/19 05/23/19 12% Cream] Calcium Carbonate 500 mg PO TID 05/23/19 05/23/19 Cholecalciferol (Vitamin D3) 2,000 unit PO DAILY 05/23/19 05/23/19 [Vitamin D3] Doxazosin [Cardura] 2 mg PO DAILY 05/23/19 05/23/19 Gabapentin [Neurontin] 100 mg PO BID 05/23/19 05/23/19 Gentamicin 0.1% Cream 1 applic TOPICAL TID 05/23/19 05/23/19 Hydrocortisone Cream 1 applic TOPICAL TID 05/23/19 05/23/19 [Hydrocortisone 1% Cream] Insuln Asp Prt/Insulin Aspart 72 unit SQ HS 05/23/19 05/23/19 [NovoLOG MIX 70-30 VIAL] Latanoprost/Pf [Latanoprost 0.005% 1 drop BOTH EYES HS 05/23/19 05/23/19 Eye Drop] Magnesium 200 mg PO DAILY 05/23/19 05/23/19 calcitrioL [Calcitriol] 0.25 mcg PO Q7D 05/23/19 05/23/19 cloNIDine HCL [Catapres] 0.3 mg PO TID 05/23/19 05/23/19 metFORMIN HCL 1,000 mg PO AC-BID 05/23/19 05/23/19 Previous Rx's Medication Instructions Recorded Amoxicillin/Potassium Clav 1 tab PO BID 5 Days #10 tab 05/29/19 [Augmentin 875-125 Tablet] Aspirin 81 mg PO DAILY #30 chew 05/29/19 Furosemide [Lasix] 40 mg PO BID@0900,1600 #60 tab 05/29/19 Metoprolol Tartrate [Lopressor] 50 mg PO TID #90 tab 05/29/19 hydrALAZINE HCL [Apresoline] 100 mg PO TID #90 tab 05/29/19 predniSONE See Taper PO DIRECTED #34 tab 05/29/19 Docusate [Colace] 100 mg PO BID #14 capsule 05/06/20 bisacodyL [Dulcolax] 10 mg PO ONCE PRN #10 tablet. 05/06/20 Allergies Allergy/AdvReac Type Severity Reaction Status Date / Time clindamycin Allergy Anaphylaxis Verified 05/06/20 10:52 Review of Systems ROS Statement: Those systems with pertinent positive or pertinent negative responses have been documented in the HPI. ROS Other: All systems not noted in ROS Statement are negative. Past Medical History Past Medical History: COPD, Diabetes Mellitus, Hyperlipidemia, Hypertension, Sleep Apnea/CPAP/BIPAP Additional Past Medical History / Comment(s): callus removed 1rst digit left foot-prophylactic tx of antibiotic currently,uses cpap. diabetic retinopathy History of Any Multi-Drug Resistant Organisms: None Reported Past Surgical History: Joint Replacement Additional Past Surgical History / Comment(s): rt total hip Additional Past Anesthesia/Blood Transfusion Reaction / Comment(s): heartrate went very low in recovery room and admitted into icu for hip surgery at [facility]. Past Psychological History: No Psychological Hx Reported Past Alcohol Use History: None Reported Past Drug Use History: None Reported - Past Family History Mother Family Medical History: No Reported History Sister(s) Family Medical History: Cancer Brother(s) Family Medical History: Cancer General Exam Limitations: no limitations General appearance: alert, in no apparent distress Head exam: Present: atraumatic, normocephalic, normal inspection Eye exam: Present: normal appearance, PERRL, EOMI. Absent: scleral icterus, conjunctival injection, periorbital swelling ENT exam: Present: normal exam, mucous membranes moist Neck exam: Present: normal inspection, full ROM. Absent: tenderness, meningismus, lymphadenopathy Respiratory exam: Present: normal lung sounds bilaterally. Absent: respiratory distress, wheezes, rales, rhonchi, stridor Cardiovascular Exam: Present: regular rate, normal rhythm, normal heart sounds. Absent: systolic murmur, diastolic murmur, rubs, gallop, clicks GI/Abdominal exam: Present: soft, normal bowel sounds. Absent: distended, tenderness, guarding, rebound, rigid Course Vital Signs 05/06/20 10:49 Temperature 98.3 F Pulse Rate 105 H Respiratory 18 Rate Blood Pressure 175/68 O2 Sat by Pulse 99 Oximetry Medical Decision Making - Medical Decision Making Patient presented for constipation x-ray showed fecal stasis, patient given 2 enemas patient had good results feels better patient be discharged in stable condition. Disposition Clinical Impression: Constipation Disposition: HOME SELF-CARE Condition: Stable Instructions (If sedation given, give patient instructions): Constipation (ED) Additional Instructions: Please return to the Emergency Department if symptoms worsen or any other concerns. Prescriptions: Docusate [Colace] 100 mg PO BID #14 capsule bisacodyL [Dulcolax] 10 mg PO ONCE PRN #10 tablet.dr OSULLIVAN Reason: Constipation Is patient prescribed a controlled substance at d/c from ED?: No Referrals: Pastora Cisse MD [Primary Care Provider] - 1-2 days Time of Disposition: 13:39
[2020-05-06 13:49] VITALS: BP 169/80; PULSE 97; TEMP 98
== END 2020-05-06 13:51 | disposition home or self-care (01) ==
LOC: EC 10:32
DX: K59.00 Constipation, unspecified (principal); J44.9 Chronic obstructive pulmonary disease, unspecified; E11.319 Type 2 diabetes mellitus with unspecified diabetic retinopathy without macular edema; E78.5 Hyperlipidemia, unspecified; I10 Essential (primary) hypertension; G47.30 Sleep apnea, unspecified; Z79.4 Long term (current) use of insulin; Z79.899 Other long term (current) drug therapy; Z79.51 Long term (current) use of inhaled steroids; Z88.1 Allergy status to other antibiotic agents; Z99.89 Dependence on other enabling machines and devices
CPT/HCPCS: 74018; 99284

== ENCOUNTER → 2020-06-30 | Outpatient (CLI) | payer MEDICARE, OTHER ==
[2020-06-30 09:24] LABS: Appearance,Urine Clear (Clear); Bilirubin,Urine Negative (Negative); Blood,Urine Negative (Negative); Color,Urine Light Yellow; Glucose,Urine (UA) Trace (Negative); Ketones,Urine Negative (Negative); Leukocyte Esterase,Urine Large (Negative); Nitrite,Urine Negative (Negative); Protein,Urine 2+ (Negative); RBC,Urine <1 /hpf (0-5); Specific Gravity,Urine 1.007 (1.001-1.035); Squamous Epithelial Cell,Urine 1 /hpf (0-4); Urobilinogen,Urine <2.0 mg/dL (<2.0); WBC,Urine 8 /hpf (0-5)
[2020-06-30 14:57] LABS: HCT 37.2 % (39.6-50.0); HGB 11.5 g/dL (13.0-17.0); MCH 27.3 pg (27.0-32.0); MCHC 30.9 g/dL (32.0-37.0); MCV 88.4 fL (80.0-97.0); Mean Platelet Volume 9.9 fL (9.5-12.2); Platelet Count 333 X 10*3/uL (140-440); RBC 4.21 X 10*6/uL (4.40-5.60); RDW 13.2 % (11.5-14.5); WBC 8.06 X 10*3/uL (4.50-10.00)
[2020-06-30 15:31] LABS: % Iron Saturation 15.86 (15.00-50.00); African American GFR (CKD) 26.1 (60.0-200.0); Albumin 4.2 g/dL (3.80-4.90); Anion Gap 9.9 mmol/L (4.00-12.00); BUN/Creat Ratio 15.36 Ratio (12.00-20.00); Calcium 8.3 mg/dL (8.7-10.3); Carbon Dioxide 23.1 mmol/L (21.6-31.8); Globulin 2.1 g/dL (1.6-3.3); Magnesium 1.9 mg/dL (1.5-2.4); Non-African American GFR(CKD) 22.5 (60.0-200.0); Phosphorus 5.2 mg/dL (2.4-5.1); Potassium 5.1 mmol/L (3.5-5.5); Total Bilirubin 0.2 mg/dL (0.2-1.2); Total Protein 6.3 g/dL (6.2-8.2); Uric Acid 7.6 mg/dL (3.7-8.7)
[2020-06-30 15:39] LABS: Ferritin 38.8 ng/mL (22.0-322.0)
== END | disposition home or self-care (01) ==
LOC: LABWHC1 08:09
PROVIDERS: ATTEND Nurse Practitioner Family
DX: E55.9 Vitamin D deficiency, unspecified (principal); D63.1 Anemia in chronic kidney disease; N18.30 Chronic kidney disease, stage 3 unspecified; N39.0 Urinary tract infection, site not specified; N25.81 Secondary hyperparathyroidism of renal origin; M10.9 Gout, unspecified
CPT/HCPCS: 36415; 80053; 81001; 82306; 82728; 83540; 83550; 83735; 83970; 84100; 84550; 85027

== ENCOUNTER → 2020-09-18 | Outpatient (CLI) | payer MEDICARE, OTHER ==
[2020-09-18 10:15] LABS: Appearance,Urine Clear (Clear); Bilirubin,Urine Negative (Negative); Blood,Urine Negative (Negative); Color,Urine Light Yellow; Glucose,Urine (UA) 1+ (Negative); Ketones,Urine Negative (Negative); Leukocyte Esterase,Urine Moderate (Negative); Mucus,Urine Rare /hpf; Nitrite,Urine Negative (Negative); PH, Urine 6.5 (5.0-8.0); Protein,Urine 2+ (Negative); RBC,Urine <1 /hpf (0-5); Squamous Epithelial Cell,Urine <1 /hpf (0-4); Urobilinogen,Urine <2.0 mg/dL (<2.0); WBC,Urine 5 /hpf (0-5)
[2020-09-18 15:32] LABS: HCT 34.1 % (39.6-50.0); HGB 10.6 g/dL (13.0-17.0); MCH 27.7 pg (27.0-32.0); MCHC 31.1 g/dL (32.0-37.0); MCV 89.3 fL (80.0-97.0); Mean Platelet Volume 9.9 fL (9.5-12.2); Platelet Count 332 X 10*3/uL (140-440); RBC 3.82 X 10*6/uL (4.40-5.60); WBC 10.18 X 10*3/uL (4.50-10.00)
[2020-09-19 01:22] LABS: % Iron Saturation 14.95 (15.00-50.00); African American GFR (CKD) 20.6 (60.0-200.0); Albumin 4.1 g/dL (3.80-4.90); Albumin/Globulin Ratio 1.95 (1.60-3.17); Anion Gap 13.3 mmol/L (4.00-12.00); BUN/Creat Ratio 15.59 Ratio (12.00-20.00); Calcium 8.3 mg/dL (8.7-10.3); Carbon Dioxide 18.7 mmol/L (21.6-31.8); Globulin 2.1 g/dL (1.6-3.3); Magnesium 1.9 mg/dL (1.5-2.4); Non-African American GFR(CKD) 17.8 (60.0-200.0); Phosphorus 5.8 mg/dL (2.4-5.1); Potassium 5.1 mmol/L (3.5-5.5); Total Bilirubin 0.3 mg/dL (0.2-1.2); Total Protein 6.2 g/dL (6.2-8.2); Uric Acid 8.2 mg/dL (3.7-8.7)
[2020-09-19 01:30] LABS: Ferritin 46.4 ng/mL (22.0-322.0)
[2020-09-19 06:56] LABS: Urine Creatinine 48.9 mg/dL
== END | disposition home or self-care (01) ==
LOC: LABWHC1 08:36
PROVIDERS: ATTEND Internal Medicine
DX: N39.0 Urinary tract infection, site not specified (principal); N18.4 Chronic kidney disease, stage 4 (severe); N25.81 Secondary hyperparathyroidism of renal origin; D64.9 Anemia, unspecified; E55.9 Vitamin D deficiency, unspecified; M10.9 Gout, unspecified
CPT/HCPCS: 36415; 80053; 81001; 82043; 82306; 82570; 82728; 83540; 83550; 83735; 83970; 84100; 84550; 85027

== ENCOUNTER → 2020-10-09 | Outpatient (CLI) | payer MEDICARE, OTHER ==
--- NOTE | 2020-10-09 13:26 | US ---
EXAMINATION TYPE: US kidneys/renal and bladder DATE OF EXAM: 10/09/2020 COMPARISON: 12/26/2017 CLINICAL HISTORY: N18.4 CKD STAGE 4. CKD EXAM MEASUREMENTS: Right Kidney: 10.4 x 5.3 x 4.7 cm Left Kidney: 10.4 x 6.5 x 6.0 cm Right Kidney: perinephric fat noted Left Kidney: perinephric fat noted Bladder: appears wnl Bilateral Jets seen: no There is no evidence for hydronephrosis at this point in time. No nephrolithiasis is seen. No timothy s are identified. The urinary bladder is anechoic. Bilateral ureteral jets are seen. IMPRESSION: No distinct abnormality seen.
== END | disposition home or self-care (01) ==
LOC: RADUSWWP 12:37
PROVIDERS: ATTEND Internal Medicine Nephrology
DX: N18.4 Chronic kidney disease, stage 4 (severe) (principal)
CPT/HCPCS: 76770

== ENCOUNTER → 2020-11-24 | Outpatient (CLI) | payer MEDICARE, OTHER ==
[2020-11-24 17:44] LABS: Chol/HDL Ratio 3.86
== END | disposition home or self-care (01) ==
LOC: LABWHC1 07:46
PROVIDERS: ATTEND Internal Medicine Cardiovascular Disease
DX: E78.2 Mixed hyperlipidemia (principal)
CPT/HCPCS: 36415; 80061; 84450; 84460

== ENCOUNTER → 2020-12-19 | Outpatient (CLI) | payer MEDICARE, OTHER ==
[2020-12-19 09:50] LABS: Appearance,Urine Clear (Clear); Bilirubin,Urine Negative (Negative); Blood,Urine Negative (Negative); Color,Urine Light Yellow; Glucose,Urine (UA) 1+ (Negative); Ketones,Urine Negative (Negative); Leukocyte Esterase,Urine Small (Negative); Mucus,Urine Rare /hpf; Nitrite,Urine Negative (Negative); Protein,Urine 2+ (Negative); RBC,Urine <1 /hpf (0-5); Specific Gravity,Urine 1.007 (1.001-1.035); Squamous Epithelial Cell,Urine 1 /hpf (0-4); Urobilinogen,Urine <2.0 mg/dL (<2.0); WBC,Urine 3 /hpf (0-5)
[2020-12-19 16:19] LABS: HCT 36.5 % (39.6-50.0); HGB 11.5 g/dL (13.0-17.0); MCH 28.3 pg (27.0-32.0); MCHC 31.5 g/dL (32.0-37.0); MCV 89.7 fL (80.0-97.0); Mean Platelet Volume 9.6 fL (9.5-12.2); Platelet Count 310 X 10*3/uL (140-440); RBC 4.07 X 10*6/uL (4.40-5.60); RDW 13.3 % (11.5-14.5); WBC 9.94 X 10*3/uL (4.50-10.00)
[2020-12-19 16:29] LABS: African American GFR (CKD) 23.8 (60.0-200.0); Albumin/Globulin Ratio 1.67 (1.60-3.17); Anion Gap 7.4 mmol/L (4.00-12.00); Calcium 8.5 mg/dL (8.7-10.3); Carbon Dioxide 26.6 mmol/L (21.6-31.8); Globulin 2.4 g/dL (1.6-3.3); Non-African American GFR(CKD) 20.5 (60.0-200.0); Phosphorus 5.3 mg/dL (2.4-5.1); Potassium 4.7 mmol/L (3.5-5.5); Total Bilirubin 0.2 mg/dL (0.3-1.2); Total Protein 6.4 g/dL (6.2-8.2); Uric Acid 8.2 mg/dL (3.7-8.7)
[2020-12-19 16:38] LABS: Ferritin 234.3 ng/mL (22.0-322.0)
[2020-12-19 17:57] LABS: Urine Creatinine 35.2 mg/dL
== END | disposition home or self-care (01) ==
LOC: LABWHC1 08:57
PROVIDERS: ATTEND Nurse Practitioner Family
DX: N18.4 Chronic kidney disease, stage 4 (severe) (principal); D64.9 Anemia, unspecified; M10.9 Gout, unspecified; E55.9 Vitamin D deficiency, unspecified; N25.81 Secondary hyperparathyroidism of renal origin; N39.0 Urinary tract infection, site not specified; R80.9 Proteinuria, unspecified
CPT/HCPCS: 36415; 80053; 81001; 82043; 82306; 82570; 82728; 83540; 83550; 83735; 83970; 84100; 84550; 85027

== ENCOUNTER → 2021-01-26 | Outpatient (CLI) | payer MEDICARE ==
[2021-01-26 23:08] LABS: African American GFR (CKD) 23.8 (60.0-200.0); Albumin 4.4 g/dL (3.80-4.90); Albumin/Globulin Ratio 1.63 (1.60-3.17); Anion Gap 14.2 mmol/L (4.00-12.00); BUN/Creat Ratio 15.33 Ratio (12.00-20.00); Calcium 8.5 mg/dL (8.7-10.3); Carbon Dioxide 20.8 mmol/L (21.6-31.8); Chol/HDL Ratio 3.71; Globulin 2.7 g/dL (1.6-3.3); LDL Cholesterol,Calculated 44.6 mg/dL (0.0-131.0); Non-African American GFR(CKD) 20.5 (60.0-200.0); Potassium 5.3 mmol/L (3.5-5.5); Total Bilirubin 0.3 mg/dL (0.2-1.2); Total Protein 7.1 g/dL (6.2-8.2); VLDL Calculation 39.4 mg/dL (5.00-40.00)
[2021-01-27 15:48] LABS: Urine Creatinine 19.7 mg/dL
== END | disposition home or self-care (01) ==
LOC: LABWHC1 08:39
PROVIDERS: ATTEND Internal Medicine Endocrinology, Diabetes & Metabolism
DX: E11.65 Type 2 diabetes mellitus with hyperglycemia (principal)
CPT/HCPCS: 36415; 80053; 80061; 82043; 82570; 84443

== ENCOUNTER → 2021-08-27 | Outpatient (CLI) | payer MEDICARE, OTHER ==
[2021-08-27 14:47] LABS: Basophils # (A) 0.06 X 10*3/uL (0.00-0.10); Basophils % (A) 0.7 %; Eosinophils # (A) 0.34 X 10*3/uL (0.04-0.35); Eosinophils % (A) 3.7 %; HCT 36.3 % (39.6-50.0); HGB 11.1 g/dL (13.0-17.0); Immature Grans, Automated 0.3 %; Lymphocytes % (A) 9.9 %; MCH 27.5 pg (27.0-32.0); MCHC 30.6 g/dL (32.0-37.0); MCV 90.1 fL (80.0-97.0); Mean Platelet Volume 9.4 fL (9.5-12.2); Monocytes # (A) 0.55 X 10*3/uL (0.20-1.00); NRBC Per 100 WBC 0 /100 WBCS (0.0-0.0); Neutrophils # (A) 7.25 X 10*3/uL (1.80-7.70); Neutrophils % (A) 79.4 %; Platelet Count 328 X 10*3/uL (140-440); RBC 4.03 X 10*6/uL (4.40-5.60); RDW 12.8 % (11.5-14.5); WBC 9.13 X 10*3/uL (4.50-10.00)
[2021-08-27 16:14] LABS: % Iron Saturation 19.96 (15.00-50.00); African American GFR (CKD) 17.3 (60.0-200.0); Albumin/Globulin Ratio 1.48 (1.60-3.17); Anion Gap 14.7 mmol/L (10.00-18.00); BUN/Creat Ratio 15.62 Ratio (12.00-20.00); Blood Urea Nitrogen 60.9 mg/dL (9.0-27.0); Calcium 8.2 mg/dL (8.7-10.3); Carbon Dioxide 19.3 mmol/L (20.0-27.5); Globulin 2.7 g/dL (1.6-3.3); Magnesium 2.9 mg/dL (1.5-2.4); Phosphorus 5.4 mg/dL (2.4-5.1); Potassium 4.9 mmol/L (3.5-5.5); Total Bilirubin 0.2 mg/dL (0.30-1.20); Total Protein 6.7 g/dL (6.2-8.2); Uric Acid 7.6 mg/dL (3.7-8.7)
[2021-08-27 17:56] LABS: Appearance,Urine Clear (Clear); Bacteria,Urine None Seen /HPF (None Seen); Bilirubin,Urine Negative (Negative); Blood,Urine Negative (Negative); Color,Urine Yellow (Yellow); Ketones,Urine Negative (Negative); Nitrite,Urine Negative (Negative); Specific Gravity,Urine 1.012 (1.001-1.030); Urobilinogen,Urine 0.2 (0.2,1.0)
[2021-08-28 00:52] LABS: Urine Creatinine 52.7 mg/dL (39.0-259.0)
== END | disposition home or self-care (01) ==
LOC: LABWHC1 08:26
PROVIDERS: ATTEND Nurse Practitioner Family
DX: D64.9 Anemia, unspecified (principal); E55.9 Vitamin D deficiency, unspecified; M10.9 Gout, unspecified; N39.0 Urinary tract infection, site not specified; N25.81 Secondary hyperparathyroidism of renal origin; N18.4 Chronic kidney disease, stage 4 (severe)
CPT/HCPCS: 36415; 80053; 81001; 82043; 82306; 82570; 82728; 83540; 83550; 83735; 83970; 84100; 84550; 85025

== ENCOUNTER 2021-09-05 10:07 | Emergency (ER) | payer MEDICARE, OTHER ==
[2021-09-05 10:17] VITALS: BP 151/62; PULSE 88; RESP 18; TEMP 97.9
--- NOTE | 2021-09-05 10:57 | XR ---
EXAMINATION TYPE: XR shoulder complete RT DATE OF EXAM: 09/05/2021 CLINICAL HISTORY: Pain after fall injury. TECHNIQUE: Three views of the right shoulder are obtained. COMPARISON: None. FINDINGS: There is no acute fracture/dislocation evident in the right shoulder. Moderate to severe n arrowing of the acromioclavicular joint. Mild to moderate narrowing glenohumeral joint. Osseous struc tures are demineralized. Visualized ribs are intact. IMPRESSION: There is no acute fracture or dislocation in the right shoulder.
--- NOTE | 2021-09-05 10:58 | XR ---
EXAMINATION TYPE: XR elbow complete RT DATE OF EXAM: 09/05/2021 CLINICAL HISTORY: Pain after fall injury. TECHNIQUE: Frontal, lateral and oblique images of the right elbow are obtained. COMPARISON: None FINDINGS: There is no acute fracture/dislocation evident in the right elbow. No abnormal fat pad si gns are seen. Osseous structures are demineralized. The overlying soft tissue appears unremarkable. IMPRESSION: There is no acute fracture or dislocation in the right elbow.
--- NOTE | 2021-09-05 11:17 | ED ---
Fall HPI - General Chief Complaint: Fall Stated Complaint: fall Time Seen by Provider: 09/05/21 11:01 Source: patient, RN notes reviewed, old records reviewed Mode of arrival: wheelchair - History of Present Illness Initial Comments: This patient's a 65-year-old male who presents emergency Department with complaints of right elbow and right shoulder pain after falling down appr oximately 2-3 stairs. Patient reports he had no head or neck injury. Patient reports that when he fell he had nothing to grab onto and landed on his right arm. Patient reports that his pain is mainly within the shoulder and has pain with lifting his arm above his head. He reports had previous left shoulder arthropathy. Patient states that he has no numbness or tingling into the distal fingertips. He denies any wrist or hand pain. He denies breaks in skin. Patient is right-handed. - Related Data Home Medications Medication Instructions Recorded Confirmed Atorvastatin [Lipitor] 40 mg PO HS 11/03/14 10/15/20 Budesonide-Formot 160-4.5 Mcg 2 puff INHALATION RT-BID 11/03/14 10/15/20 [Symbicort 160-4.5 Mcg Inhaler] Tiotropium [place] [Spiriva 2 puff INHALATION RT-DAILY 11/03/14 10/15/20 Respimat] Albuterol Inhaler (Mhu) [Ventolin 2 puff INHALATION RT-Q4H PRN 04/11/18 10/15/20 Hfa Inhaler (Mhu)] Ferrous Sulfate [Iron] 325 mg PO DAILY 04/11/18 10/15/20 Insulin NPH Hum/Reg Insulin Hm 73 unit SQ QAM 04/11/18 10/15/20 [NovoLIN 70-30 100 UNIT/ML VIAL] amLODIPine BESYLATE 10 mg PO DAILY 04/11/18 10/15/20 Ammonium Lactate Cream [Lac-Hydrin 1 applic TOPICAL DAILY 05/23/19 10/15/20 12% Cream] Calcium Carbonate 500 mg PO TID 05/23/19 10/15/20 Cholecalciferol (Vitamin D3) 2,000 unit PO DAILY 05/23/19 10/15/20 [Vitamin D3] Doxazosin [Cardura] 2 mg PO DAILY 05/23/19 10/15/20 Gabapentin [Neurontin] 100 mg PO BID 05/23/19 10/15/20 Gentamicin 0.1% Cream 1 applic TOPICAL TID 05/23/19 10/15/20 Hydrocortisone Cream 1 applic TOPICAL TID 05/23/19 10/15/20 [Hydrocortisone 1% Cream] Insuln Asp Prt/Insulin Aspart 72 unit SQ HS 05/23/19 10/15/20 [NovoLOG MIX 70-30 VIAL] Latanoprost/Pf [Latanoprost 0.005% 1 drop BOTH EYES HS 05/23/19 10/15/20 Eye Drop] Magnesium 200 mg PO DAILY 05/23/19 10/15/20 calcitrioL [Calcitriol] 0.25 mcg PO Q7D 05/23/19 10/15/20 cloNIDine HCL [Catapres] 0.3 mg PO TID 05/23/19 10/15/20 Previous Rx's Medication Instructions Recorded Aspirin 81 mg PO DAILY #30 chew 05/29/19 Furosemide [Lasix] 40 mg PO BID@0900,1600 #60 tab 05/29/19 Metoprolol Tartrate [Lopressor] 50 mg PO TID #90 tab 05/29/19 hydrALAZINE HCL [Apresoline] 100 mg PO TID #90 tab 05/29/19 predniSONE See Taper PO DIRECTED #34 tab 05/29/19 Docusate [Colace] 100 mg PO BID #14 capsule 05/06/20 bisacodyL [Dulcolax] 10 mg PO ONCE PRN #10 tablet. 05/06/20 Ibuprofen 600 mg PO Q6H #20 tab 09/05/21 Allergies Allergy/AdvReac Type Severity Reaction Status Date / Time clindamycin Allergy Anaphylaxis Verified 09/05/21 10:17 Review of Systems ROS Statement: Those systems with pertinent positive or pertinent negative responses have been documented in the HPI. ROS Other: All systems not noted in ROS Statement are negative. Past Medical History Past Medical History: COPD, Diabetes Mellitus, Hyperlipidemia, Hypertension, Sleep Apnea/CPAP/BIPAP Additional Past Medical History / Comment(s): callus removed 1rst digit left foot-prophylactic tx of antibiotic currently,uses cpap. diabetic retinopathy History of Any Multi-Drug Resistant Organisms: None Reported Past Surgical History: Joint Replacement Additional Past Surgical History / Comment(s): rt total hip Additional Past Anesthesia/Blood Transfusion Reaction / Comment(s): heartrate went very low in recovery room and admitted into icu for hip surgery at [facility]. Past Psychological History: No Psychological Hx Reported Smoking Status: Former smoker Past Alcohol Use History: None Reported Past Drug Use History: None Reported - Past Family History Mother Family Medical History: No Reported History Sister(s) Family Medical History: Cancer Brother(s) Family Medical History: Cancer General Exam - General Exam Comments Initial Comments: This is a 65-year-old male. Patient is alert and oriented 3. Appears in no acute distress. Limitations: no limitations General appearance: alert, in no apparent distress Head exam: Present: atraumatic, normocephalic, normal inspection Eye exam: Present: normal appearance, PERRL, EOMI. Absent: scleral icterus, conjunctival injection, periorbital swelling ENT exam: Present: normal exam Neck exam: Present: normal inspection. Absent: tenderness, meningismus, lymphadenopathy Respiratory exam: Present: wheezes. Absent: normal lung sounds bilaterally (slight wheezing, pt smoker ), respiratory distress, rales, rhonchi, stridor Cardiovascular Exam: Present: regular rate Right Shoulder Exam: Present: normal inspection, tenderness (over anterior shoulder ), swelling. Absent: full ROM Upper Arm exam: Present: normal inspection. Absent: full ROM (patient has pain with abduction of shoulder greater than 10 degrees. ) Elbow exam: Present: normal inspection, full ROM Forearm Wrist exam: Present: normal inspection, full ROM Hand Wrist exam: Present: normal inspection, full ROM Neurosensory exam: Present: radial nerve intact, ulnar nerve intact, median nerve intact Vascular: Present: normal capillary refill Course Vital Signs 09/05/21 10:10 Temperature 97.9 F Pulse Rate 88 Respiratory 18 Rate Blood Pressure 151/62 O2 Sat by Pulse 96 Oximetry Medical Decision Making - Medical Decision Making Pleasant 65-year-old male presents with complaints of right shoulder pain and right elbow pain after fall on 3 steps yesterday evening. Patient has pain with abduction greater than 10. X-rays of the right shoulder and elbow reviewed and show no evidence of fracture. He has full range of motion of the elbow wrist and hand and normal sensation distally. Capillary refill is less than 2 seconds. Discussed with concern of range of motions shoulder in the fall that he may have concern for rotator cuff injury or labrum injury. Patient was placed in a sling. Advised follow-up with customer specialist and anti- inflammatory medication. Patient has a prescription for [place] for chronic back pain and advised to continue this medication for his pain relief. - Radiology Data Radiology results: report reviewed Right elbow and right shoulder x-ray show no evidence of acute fracture. Disposition Clinical Impression: Injury of right rotator cuff, Fall, Elbow sprain Disposition: HOME SELF-CARE Condition: Good Instructions (If sedation given, give patient instructions): Fall Prevention (ED), Rotator Cuff Injury (ED) Additional Instructions: Patient advised to have close follow-up with customer specialist. Taking anti-inflammatory medication as prescribed. Patient should remain in the sling except for showering. Using pillows to prop your arm up at night to prevent rolling on it during sleep. Prescriptions: Ibuprofen 600 mg PO Q6H #20 tab Is patient prescribed a controlled substance at d/c from ED?: No Referrals: Pastora Cisse MD [Primary Care Provider] - 1-2 days Brad Wilkins PAC [PH[employer]IC[employer]] - 1-2 days Time of Disposition: 11:17
== END 2021-09-05 11:30 | disposition home or self-care (01) ==
LOC: EC 10:07
DX: S53.491A Other sprain of right elbow, initial encounter (principal); S46.091A Other injury of muscle(s) and tendon(s) of the rotator cuff of right shoulder, initial encounter; J44.9 Chronic obstructive pulmonary disease, unspecified; E11.9 Type 2 diabetes mellitus without complications; E78.5 Hyperlipidemia, unspecified; I10 Essential (primary) hypertension; Z79.4 Long term (current) use of insulin; Z79.82 Long term (current) use of aspirin; Z88.1 Allergy status to other antibiotic agents; Z96.641 Presence of right artificial hip joint; Z87.891 Personal history of nicotine dependence; W10.8XXA Fall (on) (from) other stairs and steps, initial encounter
CPT/HCPCS: 99283

== ENCOUNTER → 2021-11-20 | Outpatient (CLI) | payer MEDICARE, OTHER ==
--- NOTE | 2021-11-20 16:48 | MR ---
EXAMINATION TYPE: MR shoulder RT wo con DATE OF EXAM: 11/20/2021 COMPARISON: None HISTORY: Right shoulder pain and limited range of movment due to fall in July 2021. Multiplanar multiecho imaging of the right shoulder with no contrast. There is mild shoulder joint effusion. Biceps tendon is intact. Subscapularis tendon shows slight thi ckening laterally. No retraction. The glenoid perfecto appear intact. There is some narrowing of the gle nohumeral joint space. There is thickening and increased signal in the supraspinatus tendon with full-thickness tear in the subacromial joint space. No retraction. The infraspinatus tendon is intact. There is mild spurring at the AC joint. There is small subdeltoid effusion. No evidence of a fracture. There is some osteoarth ritis at the AC joint. IMPRESSION: There is full-thickness tear of the supraspinatus tendon with thickening. There is mild shoulder join t effusion and subdeltoid effusion. Osteoarthritis of the glenohumeral joint.
== END | disposition home or self-care (01) ==
LOC: RADMRIMAIN 13:17
PROVIDERS: ATTEND Orthopaedic Surgery Hand Surgery
DX: M75.111 Incomplete rotator cuff tear or rupture of right shoulder, not specified as traumatic (principal); M19.011 Primary osteoarthritis, right shoulder

== ENCOUNTER 2022-03-31 15:39 | Emergency (ER) | payer OTHER, MEDICARE ==
[2022-03-31 15:47] VITALS: TEMP 98
[2022-03-31] MEDS ORDERED: MORPHINE SULFATE 4 MG/ML SYRINGE IM STA ×2 (16:06→18:33)
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
[2022-03-31 18:53] VITALS: BP 151/81; PULSE 81; RESP 20
== END 2022-03-31 19:20 | disposition home or self-care (01) ==
LOC: EC 15:39
DX: M54.50 Low back pain, unspecified (principal); J44.9 Chronic obstructive pulmonary disease, unspecified; E11.9 Type 2 diabetes mellitus without complications; E78.5 Hyperlipidemia, unspecified; I10 Essential (primary) hypertension; I25.2 Old myocardial infarction; M19.90 Unspecified osteoarthritis, unspecified site; G47.30 Sleep apnea, unspecified; Z79.02 Long term (current) use of antithrombotics/antiplatelets; Z79.51 Long term (current) use of inhaled steroids; Z79.83 Long term (current) use of bisphosphonates; Z87.891 Personal history of nicotine dependence; Z79.891 Long term (current) use of opiate analgesic; V89.2XXA Person injured in unspecified motor-vehicle accident, traffic, initial encounter; Y92.411 Interstate highway as the place of occurrence of the external cause; Z79.899 Other long term (current) drug therapy
CPT/HCPCS: 72128; 72131; 99284; 96372 ×2; J2270

== ENCOUNTER 2022-04-02 15:18 | Emergency (ER) | payer OTHER, MEDICARE ==
[2022-04-02] MEDS ORDERED: ONDANSETRON 4 MG/2 ML VIAL IVP STA (16:31)
[2022-04-02] MEDS ORDERED: SODIUM CHLORIDE 0.9% 1,000 ML IV STA (16:31)
[2022-04-02] MEDS ORDERED: HYDROmorphone 1 MG/ML 1 ML SYRINGE IVP STA (16:31)
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
[2022-04-02 17:09] LABS: Basophils % (A) 0 %; Eosinophils # (A) 0.4 k/uL (0-0.7); Eosinophils % (A) 4 %; HCT 30.2 % (39.0-53.0); HGB 9.9 gm/dL (13.0-17.5); Hypochromasia Slight; Lymphocytes # (A) 0.6 k/uL (1.0-4.8); Lymphocytes % (A) 6 %; MCH 28.9 pg (25.0-35.0); MCHC 32.7 g/dL (31.0-37.0); MCV 88.3 fL (80.0-100.0); Mean Platelet Volume 6.9; Monocytes # (A) 0.6 k/uL (0-1.0); Monocytes % (A) 6 %; Neutrophils # (A) 8.9 k/uL (1.3-7.7); Neutrophils % (A) 84 %; Platelet Count 358 k/uL (150-450); RBC 3.42 m/uL (4.30-5.90); RDW 13.6 % (11.5-15.5); WBC 10.7 k/uL (3.8-10.6)
[2022-04-02 17:21] LABS: Prothrombin Time 10.7 sec (9.0-12.0)
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
[2022-04-02 17:32] LABS: Albumin 4.2 g/dL (3.5-5.0); Calcium 7.1 mg/dL (8.4-10.2); Potassium 4.2 mmol/L (3.5-5.1); Total Bilirubin 0.4 mg/dL (0.2-1.3); Total Protein 7.4 g/dL (6.3-8.2)
[2022-04-02] MEDS ORDERED: ACET/COD 300 MG/30 MG STARTER PACK 6 TAB BTL PO STA (17:42)
[2022-04-02 17:49] LABS: Glucose,Whole Blood 71 mg/dL (70-110)
[2022-04-02 18:22] VITALS: BP 157/72; PULSE 88; RESP 18; TEMP 98.3
== END 2022-04-02 18:48 | disposition home or self-care (01) ==
LOC: EC 15:18
DX: S00.93XA Contusion of unspecified part of head, initial encounter (principal); I12.9 Hypertensive chronic kidney disease with stage 1 through stage 4 chronic kidney disease, or unspecified chronic kidney disease; N18.9 Chronic kidney disease, unspecified; G89.4 Chronic pain syndrome; J44.9 Chronic obstructive pulmonary disease, unspecified; E11.9 Type 2 diabetes mellitus without complications; E78.5 Hyperlipidemia, unspecified; I25.2 Old myocardial infarction; M19.90 Unspecified osteoarthritis, unspecified site; Z87.891 Personal history of nicotine dependence; Z88.1 Allergy status to other antibiotic agents; Z79.82 Long term (current) use of aspirin; Z79.51 Long term (current) use of inhaled steroids; Z79.4 Long term (current) use of insulin; Z79.899 Other long term (current) drug therapy; V49.40XA Driver injured in collision with unspecified motor vehicles in traffic accident, initial encounter
CPT/HCPCS: 36415; 80053; 85025; 85610; 71250; 74176; 99284; 96374; 96375; J2405; J1170

== ENCOUNTER 2022-04-15 15:09 | Inpatient (IN) | payer MEDICARE, OTHER ==
[2022-04-15 16:45] LABS: Basophils % (A) 0 %; Eosinophils # (A) 0.3 k/uL (0-0.7); Eosinophils % (A) 3 %; HCT 28.6 % (39.0-53.0); HGB 9.1 gm/dL (13.0-17.5); Hypochromasia Moderate; Lymphocytes # (A) 0.4 k/uL (1.0-4.8); Lymphocytes % (A) 4 %; MCH 27.9 pg (25.0-35.0); MCHC 31.9 g/dL (31.0-37.0); MCV 87.5 fL (80.0-100.0); Mean Platelet Volume 8.7; Monocytes # (A) 0.6 k/uL (0-1.0); Monocytes % (A) 6 %; Neutrophils # (A) 8.6 k/uL (1.3-7.7); Neutrophils % (A) 86 %; Platelet Count 311 k/uL (150-450); RBC 3.27 m/uL (4.30-5.90); RDW 13.7 % (11.5-15.5)
[2022-04-15 16:54] LABS: Partial Thromboplastin Time 26.6 sec (22.0-30.0); Prothrombin Time 10.7 sec (9.0-12.0)
[2022-04-15 17:02] LABS: Albumin 3.9 g/dL (3.5-5.0); Calcium 6.8 mg/dL (8.4-10.2); Potassium 4.4 mmol/L (3.5-5.1); Total Bilirubin 0.5 mg/dL (0.2-1.3)
--- NOTE | 2022-04-15 17:16 | XR ---
EXAMINATION TYPE: XR chest 2V DATE OF EXAM: 04/15/2022 5:03 PM COMPARISON: Chest radiographs from 05/29/2019 TECHNIQUE: XR chest 2V Frontal and lateral views of the chest. CLINICAL INDICATION:Male, 66 years old with history of difficulty breathing; FINDINGS: Lungs/Pleura: There is no evidence of focal consolidation, or pneumothorax. Blunting of left costoph renic angle with pleural fusion. Pulmonary vascularity: Pulmonary vascular congestion. Heart/mediastinum: Cardiomediastinal silhouette is prominent in size. Musculoskeletal: No acute osseous pathology. IMPRESSION: 1. Scattered airspace opacities with increased interstitial lung markings correlate for atypical pne umonia. Correlate for congestive heart failure with serum BNP. 2. New Left pleural effusion, small.
[2022-04-15] MEDS ORDERED: FUROSEMIDE 10 MG/ML 4 ML VIAL IV STA (19:26)
--- NOTE | 2022-04-15 19:33 | ED ---
SOB HPI - General Chief Complaint: Shortness of Breath Stated Complaint: SOB/water weight Time Seen by Provider: 04/15/22 19:12 Source: patient, RN notes reviewed Mode of arrival: ambulatory Limitations: no limitations - History of Present Illness Initial Comments: This is a 66-year-old male who presents to the emergency department for shortness of breath and swelling. He has a history of congestive heart failure and takes HCTZ 25 mg daily. He is a patient of Dr. Saavedra, cardiology, but states that he is overdue for an appointment. States that he has been on this dose for many years and has never had a problem like this in the past. Reports swelling in the lower extremities and abdomen with associated shortness of breath. Symptoms have been present and worsening over the last week. Denies any associated chest pain. Denies any fevers, chills, sore throat, cough, chest pain, palpitations, abdominal pain, nausea, vomiting, diarrhea, back pain, or headaches. MD Complaint: shortness of breath Onset/Timin -: week(s) Known History Of: COPD, congestive heart failure, diabetes Associated Symptoms: cough - Related Data Home Medications Medication Instructions Recorded Confirmed Budesonide-Formot 160-4.5 Mcg 2 puff INHALATION RT-BID 11/03/14 04/15/22 [Symbicort 160-4.5 Mcg Inhaler] Tiotropium [place] [Spiriva 2 puff INHALATION RT-DAILY 11/03/14 04/15/22 Respimat] amLODIPine BESYLATE 10 mg PO DAILY 04/11/18 04/15/22 Latanoprost/Pf [Latanoprost 0.005% 1 drop BOTH EYES HS 05/23/19 04/15/22 Eye Drop] calcitrioL [Calcitriol] 0.25 mcg PO DAILY 05/23/19 04/15/22 hydroCHLOROthiazide 25 mg PO DAILY 12/24/21 04/15/22 Atorvastatin Calcium [Lipitor] 80 mg PO HS 04/15/22 04/15/22 Dorzolamide 2% [Trusopt 2%] 1 drops BOTH EYES BID 04/15/22 04/15/22 Insulin Aspart Prot/Insuln Asp See Protocol SQ AC-BID 04/15/22 04/15/22 [Novolog Mix 70-30 Flexpen] Losartan [Cozaar] 50 mg PO DAILY 04/15/22 04/15/22 carvediloL [Coreg] 6.25 mg PO BID 04/15/22 04/15/22 cloNIDine HCL [Catapres] 0.2 mg PO BID 04/15/22 04/15/22 hydrALAZINE HCL [Apresoline] 100 mg PO BID 04/15/22 04/15/22 Allergies Allergy/AdvReac Type Severity Reaction Status Date / Time clindamycin Allergy Anaphylaxis Verified 04/15/22 20:26 Review of Systems ROS Statement: Those systems with pertinent positive or pertinent negative responses have been documented in the HPI. ROS Other: All systems not noted in ROS Statement are negative. Past Medical History Past Medical History: COPD, Diabetes Mellitus, Eye Disorder, Hyperlipidemia, Hypertension, Myocardial Infarction ([place]), Osteoarthritis ([place]), Renal Disease, Sleep Apnea/CPAP/BIPAP Additional Past Medical History / Comment(s): diabetic retinopathy, Last Myocardial Infarction Date:: 2014 History of Any Multi-Drug Resistant Organisms: None Reported Past Surgical History: Joint Replacement, Tonsillectomy Additional Past Surgical History / Comment(s): rt total hip replacement, lasik eye surgery, Past Anesthesia/Blood Transfusion Reactions: Previous Problems w/ Anesthesia Additional Past Anesthesia/Blood Transfusion Reaction / Comment(s): heartrate went very low in recovery room and admitted into icu after hip surgery at [facility]. 12/24/21: pt states "cardiac arrest during hip replacement surgery with Dr Ellis at [facility] in 2014"-anesthesia record on chart Past Psychological History: No Psychological Hx Reported Smoking Status: Former smoker Past Alcohol Use History: None Reported Past Drug Use History: None Reported - Past Family History Sister(s) Family Medical History: Cancer Brother(s) Family Medical History: Cancer General Exam Limitations: no limitations General appearance: alert, in no apparent distress Head exam: Present: atraumatic, normocephalic, normal inspection Respiratory exam: Present: normal lung sounds bilaterally, rhonchi. Absent: respiratory distress, wheezes, rales, stridor Cardiovascular Exam: Present: regular rate, normal rhythm, normal heart sounds. Absent: systolic murmur, diastolic murmur, rubs, gallop, clicks GI/Abdominal exam: Present: distended, normal bowel sounds Extremities exam: Present: other (3+ pitting edema bilaterally) Neurological exam: Present: alert, oriented X3, CN II-XII intact Psychiatric exam: Present: normal affect, normal mood Course Vital Signs 04/15/22 16:22 Temperature 97.6 F Pulse Rate 99 Respiratory 20 Rate Blood Pressure 143/71 O2 Sat by Pulse 96 Oximetry Medical Decision Making - Medical Decision Making This is a 66-year-old male who presents to the emergency department for shortness of breath and swelling. BNP is significantly elevated compared to prior at 14,300, suggesting a CHF exacerbation. He is also noted to have sw elling in both extremities and distention of the abdomen. My interpretation of the chest x-ray reveals a small left pleural effusion without evidence of localized consolidations. He was given a dose of 20 mg IV Lasix. Additionally, his lab work reveals that he is in end-stage renal failure, however he is not yet on dialysis. He was supposed to have a fistula created in January to start dialysis, however this appointment was canceled because he did not have anyone to drive him home. He is still waiting to schedule this appointment. His fagoting machine operator is Dr. Cervantes. Patient will be admitted to medicine for CHF exacerbation with cardiology consult and he was started on 20 mg of IV Lasix twice daily. Nephrology consult placed as well due to the end-stage renal failure. This case was discussed in detail with the attending ED physician. Presentation, findings, and treatment plan discussed in detail as well. - Lab Data Result diagrams: 04/15/22 16:32 04/15/22 16:32 Lab Results 04/15/22 04/15/22 04/15/22 Range/Units 16:32 16:32 16:32 WBC 10.0 (3.8-10.6) k/uL RBC 3.27 L (4.30-5.90) m/uL Hgb 9.1 L (13.0-17.5) gm/dL Hct 28.6 L (39.0-53.0) % MCV 87.5 (80.0-100.0) fL MCH 27.9 (25.0-35.0) pg MCHC 31.9 (31.0-37.0) g/dL RDW 13.7 (11.5-15.5) % Plt Count 311 (150-450) k/uL MPV 8.7 Neutrophils % 86 % Lymphocytes % 4 % Monocytes % 6 % Eosinophils % 3 % Basophils % 0 % Neutrophils # 8.6 H (1.3-7.7) k/uL Lymphocytes # 0.4 L (1.0-4.8) k/uL Monocytes # 0.6 (0-1.0) k/uL Eosinophils # 0.3 (0-0.7) k/uL Basophils # 0.0 (0-0.2) k/uL Hypochromasia Moderate PT 10.7 (9.0-12.0) sec INR 1.0 (<1.2) APTT 26.6 (22.0-30.0) sec Sodium 140 (137-145) mmol/L Potassium 4.4 (3.5-5.1) mmol/L Chloride 107 (98-107) mmol/L Carbon Dioxide 20 L (22-30) mmol/L Anion Gap 13 mmol/L BUN 62 H (9-20) mg/dL Creatinine 4.35 H (0.66-1.25) mg/dL Est GFR (CKD-EPI)AfAm 15 (>60 ml/min/1.73 sqM) Est GFR (CKD-EPI)NonAf 13 (>60 ml/min/1.73 sqM) Glucose 116 H (74-99) mg/dL Calcium 6.8 L (8.4-10.2) mg/dL Total Bilirubin 0.5 (0.2-1.3) mg/dL AST 19 (17-59) U/L ALT 23 (4-49) U/L Alkaline Phosphatase 116 (38-126) U/L Troponin I (0.000-0.034) ng/mL NT-Pro-B Natriuret Pep pg/mL Total Protein 7.0 (6.3-8.2) g/dL Albumin 3.9 (3.5-5.0) g/dL 04/15/22 04/15/22 Range/Units 16:32 16:32 WBC (3.8-10.6) k/uL RBC (4.30-5.90) m/uL Hgb (13.0-17.5) gm/dL Hct (39.0-53.0) % MCV (80.0-100.0) fL MCH (25.0-35.0) pg MCHC (31.0-37.0) g/dL RDW (11.5-15.5) % Plt Count (150-450) k/uL MPV Neutrophils % % Lymphocytes % % Monocytes % % Eosinophils % % Basophils % % Neutrophils # (1.3-7.7) k/uL Lymphocytes # (1.0-4.8) k/uL Monocytes # (0-1.0) k/uL Eosinophils # (0-0.7) k/uL Basophils # (0-0.2) k/uL Hypochromasia PT (9.0-12.0) sec INR (<1.2) APTT (22.0-30.0) sec Sodium (137-145) mmol/L Potassium (3.5-5.1) mmol/L Chloride (98-107) mmol/L Carbon Dioxide (22-30) mmol/L Anion Gap mmol/L BUN (9-20) mg/dL Creatinine (0.66-1.25) mg/dL Est GFR (CKD-EPI)AfAm (>60 ml/min/1.73 sqM) Est GFR (CKD-EPI)NonAf (>60 ml/min/1.73 sqM) Glucose (74-99) mg/dL Calcium (8.4-10.2) mg/dL Total Bilirubin (0.2-1.3) mg/dL AST (17-59) U/L ALT (4-49) U/L Alkaline Phosphatase (38-126) U/L Troponin I <0.012 (0.000-0.034) ng/mL NT-Pro-B Natriuret Pep 82117 pg/mL Total Protein (6.3-8.2) g/dL Albumin (3.5-5.0) g/dL - EKG Data EKG Comments: Sinus tachycardia. Normal axis. Ventricular rate 100 bpm, LA interval 124 ms, QRS duration 109 ms, QTC 420 ms. - Radiology Data Radiology results: report reviewed, image reviewed Disposition Clinical Impression: Acute exacerbation of CHF (congestive heart failure), ESRF (end stage renal failure) Disposition: ADMITTED IP TO THIS HOSP
[2022-04-15] MEDS ORDERED: FUROSEMIDE 10 MG/ML 2 ML VIAL IV ONE (19:45)
[2022-04-15] MEDS ORDERED: ACETAMINOPHEN TAB 325 MG TAB PO PRN (20:16)
[2022-04-15] MEDS ORDERED: NALOXONE 0.4 MG/ML 1 ML VIAL IV PRN (20:16)
[2022-04-15 22:55] LABS: Glucose,Whole Blood 144 mg/dL (70-110)
[2022-04-15] MEDS: LATANOPROST 0.005% OPHTH DROPS 2.5 ML BTL BOTH EYES SCH (23:35)
[2022-04-15] MEDS: DORZOLAMIDE HCL 2% DROPS 10 ML BTL BOTH EYES SCH (23:35)
[2022-04-15] MEDS: carvediloL 6.25 MG TAB PO SCH (23:35)
[2022-04-15] MEDS: cloNIDine HCL 0.2 MG TAB PO SCH (23:35)
[2022-04-15] MEDS: hydrALAZINE HCL 50 MG TAB PO SCH (23:35)
[2022-04-15] MEDS: ATORVASTATIN 80 MG TAB PO SCH (23:35)
[2022-04-15] MEDS: SYMBICORT 160-4.5 MCG INHALER INHALATION SCH (23:49)
[2022-04-16 06:05] LABS: Glucose,Whole Blood 151 mg/dL (70-110)
[2022-04-16] MEDS: INSULIN ASPART (NovoLOG) 100 UNIT/ML VIAL SQ SCH ×4 (06:06→20:56)
[2022-04-16] MEDS: SYMBICORT 160-4.5 MCG INHALER INHALATION SCH ×2 (07:59→19:51)
[2022-04-16] MEDS: cloNIDine HCL 0.2 MG TAB PO SCH ×2 (09:03→21:02)
[2022-04-16] MEDS: hydrALAZINE HCL 50 MG TAB PO SCH ×2 (09:03→21:02)
[2022-04-16] MEDS: DORZOLAMIDE HCL 2% DROPS 10 ML BTL BOTH EYES SCH ×2 (09:03→21:02)
[2022-04-16] MEDS: carvediloL 6.25 MG TAB PO SCH ×2 (09:03→21:02)
[2022-04-16] MEDS: FUROSEMIDE 10 MG/ML 2 ML VIAL IV SCH ×2 (09:04→09:08)
--- NOTE | 2022-04-16 09:55 | P.NPCON ---
History of Present Illness - Reason for Consult acute renal failure, chronic renal failure - History of Present Illness Reason for consultation: Acute kidney injury on chronic kidney disease History of present illness: Patient is a 66-year-old male seen in renal consultation for acute kidney injury on chronic kidney disease. Patient has chronic kidney disease stage IV/V with baseline creatinine near 4 secondary to diabetic kidney disease. Patient presented to the hospital with worsening shortness of breath and edema over the last 1 week. Patient states he has gained at least 10 pounds. He admits to shortness of breath as well as edema in his lower extremities. Patient states he was taking hydrochlorothiazide outpatient. Denies chest pain. No vomiting or diarrhea. Oral intake has been fair. Denies use of nonsteroidals. Patient has long-standing history of diabetes. States he's been feeling well except for fluid retention. Denies excessive fluid intake or eating salty foods. Patient states his AV fistula surgery was canceled twice; the first time as he didn't have a ride the second time as his wasn't feeling well. Vital signs are stable. General: Awake. No acute distress. HEENT: Head exam is unremarkable. LUNGS: Breath sounds decreased. HEART: Rate and Rhythm are regular. ABDOMEN: Soft, obese. EXTREMITITES: 2+ edema. Past Medical History Past Medical History: COPD, Diabetes Mellitus, Eye Disorder, Hyperlipidemia, Hypertension, Myocardial Infarction ([place]), Osteoarthritis (OA), Renal Disease, Sleep Apnea/CPAP/BIPAP Additional Past Medical History / Comment(s): diabetic retinopathy, Last Myocardial Infarction Date:: 2014 History of Any Multi-Drug Resistant Organisms: None Reported Past Surgical History: Joint Replacement, Tonsillectomy Additional Past Surgical History / Comment(s): rt total hip replacement, lasik eye surgery, Past Anesthesia/Blood Transfusion Reactions: Previous Problems w/ Anesthesia Additional Past Anesthesia/Blood Transfusion Reaction / Comment(s): heartrate went very low in recovery room and admitted into icu after hip surgery at [facility]. 12/24/21: pt states "cardiac arrest during hip replacement surgery with Dr Ellis at [facility] in 2014"-anesthesia record on chart Past Psychological History: No Psychological Hx Reported Smoking Status: Former smoker Past Alcohol Use History: None Reported Past Drug Use History: None Reported - Past Family History Sister(s) Family Medical History: Cancer Additional Family Medical History / Comment(s): ovarian CA, lung CA Brother(s) Family Medical History: Cancer Additional Family Medical History / Comment(s): prostate CA Medications and Allergies Home Medications Medication Instructions Recorded Confirmed Type Budesonide-Formot 160-4.5 Mcg 2 puff INHALATION RT-BID 11/03/14 04/15/22 History [Symbicort 160-4.5 Mcg Inhaler] Tiotropium [place] [Spiriva 2 puff INHALATION RT-DAILY 11/03/14 04/15/22 History Respimat] amLODIPine BESYLATE 10 mg PO DAILY 04/11/18 04/15/22 History Latanoprost/Pf [Latanoprost 0.005% 1 drop BOTH EYES HS 05/23/19 04/15/22 History Eye Drop] calcitrioL [Calcitriol] 0.25 mcg PO DAILY 05/23/19 04/15/22 History hydroCHLOROthiazide 25 mg PO DAILY 12/24/21 04/15/22 History Atorvastatin Calcium [Lipitor] 80 mg PO HS 04/15/22 04/15/22 History Dorzolamide 2% [Trusopt 2%] 1 drops BOTH EYES BID 04/15/22 04/15/22 History Insulin Aspart Prot/Insuln Asp See Protocol SQ AC-BID 04/15/22 04/15/22 History [Novolog Mix 70-30 Flexpen] Losartan [Cozaar] 50 mg PO DAILY 04/15/22 04/15/22 History carvediloL [Coreg] 6.25 mg PO BID 04/15/22 04/15/22 History cloNIDine HCL [Catapres] 0.2 mg PO BID 04/15/22 04/15/22 History hydrALAZINE HCL [Apresoline] 100 mg PO BID 04/15/22 04/15/22 History Allergies Allergy/AdvReac Type Severity Reaction Status Date / Time clindamycin Allergy Anaphylaxis Verified 04/15/22 20:26 Physical Exam Vitals: Vital Signs Temp Pulse Pulse Resp BP BP Pulse Ox 04/16/22 08:00 98.6 F 95 18 142/66 95 04/16/22 03:23 96.4 F L 80 20 135/63 96 04/15/22 23:06 101 H 22 156/73 95 04/15/22 22:58 101 H 22 156/73 95 04/15/22 16:22 97.6 F 99 20 143/71 96 Intake and Output 04/15/22 04/16/22 04/16/22 22:59 06:59 14:59 Output Total 1020 Balance -1020 Output: Urine 1020 Other: Weight 102.058 kg 105.4 kg Results - Lab Results Most recent lab results Calcium 6.8 mg/dL (8.4-10.2) L 04/15/22 16:32 04/15/22 16:32 04/15/22 16:32 Assessment and Plan Plan: Assessment: 1. Acute kidney injury secondary to ATN secondary to cardiorenal syndrome. Creatinine 4.35 yesterday. 2. 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 Baseline creatinine near 4. 3. Volume overload. 4. Diabetes mellitus. 5. Acute on chronic diastolic CHF. 6. Hypertension with chronic kidney disease. 7. Anemia of chronic kidney disease. Plan: Increase Lasix to 80 mg IV twice daily. Low-salt diet and 1500 mL fluid restriction. Check phosphorus level. Check iron studies. Follow-up echocardiogram. Patient's AV fistula surgery had to be rescheduled twice outpatient. Stressed importance of getting this done as soon as possible. Continue to assess daily for need for renal replacement therapy. If no improvement in volume status in the next 1-2 days, will initiate renal replacement therapy while in the hospital. Patient in agreement. Thank you for the consultation. I will continue to follow the patient with you during his hospital stay.
[2022-04-16 10:11] LABS: Calcium 6.5 mg/dL (8.4-10.2); Potassium 4.8 mmol/L (3.5-5.1)
[2022-04-16] MEDS: IPRATROPIUM 0.5 MG/2.5 ML NEBU INHALATION SCH ×3 (11:36→19:51)
[2022-04-16 11:46] LABS: Glucose,Whole Blood 258 mg/dL (70-110)
--- NOTE | 2022-04-16 11:49 | P.HPIM ---
History of Present Illness Patient is a 66-year-old male came in because of a competent of shortness of breath patient is found to have some pulmonary edema patient gained about 10 pounds patient does have edema in bilateral lower expertise as well. Patient had a normal ejection fraction. Patient denied any nausea vomiting patient and use of nonsteroidal anti-intermittent medications. Patient does have a history of long-standing diabetes with us and a chronic kidney disease stage IV with baseline serum creatinine of around 2.5 patient denied any fever chills chest x- ray showing pulmonary edema patient has highly elevated BNP of 14,000. Patient had a AV fistula procedure that was canceled twice in the past because of some issues at home. REVIEW OF SYSTEMS: CONSTITUTIONAL: No fever, no malaise, no fatigue. HEENT: No recent visual problems or hearing problems. Denied any sore throat. CARDIOVASCULAR: No chest pain, orthopnea, PND, no palpitations, no syncope. PULMONARY: no hemoptysis. GASTROINTESTINAL: No diarrhea, no nausea, no vomiting, no abdominal pain. NEUROLOGICAL: No headaches, no weakness, no numbness. HEMATOLOGICAL: Denies any bleeding or petechiae. GENITOURINARY: Denies any burning micturition, frequency, or urgency. MUSCULOSKELETAL/RHEUMATOLOGICAL: Denies any joint pain, or any muscle pain. ENDOCRINE: Denies any polyuria or polydipsia. The rest of the 14-point review of systems is negative. PHYSICAL EXAMINATION: GENERAL: The patient is alert and oriented x3, not in any acute distress. Well developed, well nourished. HEENT: Pupils are round and equally reacting to light. EOMI. No scleral icterus. No conjunctival pallor. Normocephalic, atraumatic. No pharyngeal erythema. No thyromegaly. CARDIOVASCULAR: S1 and S2 present. No murmurs, rubs, or gallops. She does have elevated JVD PULMONARY: Chest is clear to auscultation, no wheezing or crackles. ABDOMEN: Soft, nontender, nondistended, normoactive bowel sounds. No palpable organomegaly. MUSCULOSKELETAL: No joint swelling or deformity. EXTREMITIES: No cyanosis, clubbing, bilateral lower exudative edema NEUROLOGICAL: Gross neurological examination did not reveal any focal deficits. SKIN: No rashes. Assessment and plan -Acute kidney injury believed to be secondary to acute blood necrosis which is again secondary to cardiorenal syndrome present creatinine is around 4.35 patient does have chronic kidney disease stage IV secondary to diabetic nephropathy: Patient is on Lasix 80 mg IV twice a day which will be continued along with low-salt diet -Type 2 diabetes mellitus patient will be resumed on home regimen along with sliding scale insulin -Congestive heart failure chronic diastolic dysfunction with acute exacerbation IV Lasix as mentioned above -Hypertension: Hold off lisinopril continue rest of the home medications -Anemia of chronic kidney disease -Hyperlipidemia -Sleep apnea -Diabetic retinopathy -Coronary artery disease DVT prophylaxis: Subcutaneous heparin Past Medical History Past Medical History: COPD, Diabetes Mellitus, Eye Disorder, Hyperlipidemia, Hypertension, Myocardial Infarction ([place]), Osteoarthritis (OA), Renal Disease, Sleep Apnea/CPAP/BIPAP Additional Past Medical History / Comment(s): diabetic retinopathy, Last Myocardial Infarction Date:: 2014 History of Any Multi-Drug Resistant Organisms: None Reported Past Surgical History: Joint Replacement, Tonsillectomy Additional Past Surgical History / Comment(s): rt total hip replacement, lasik eye surgery, Past Anesthesia/Blood Transfusion Reactions: Previous Problems w/ Anesthesia Additional Past Anesthesia/Blood Transfusion Reaction / Comment(s): heartrate went very low in recovery room and admitted into icu after hip surgery at [facility]. 12/24/21: pt states "cardiac arrest during hip replacement surgery with Dr Ellis at [facility] in 2014"-anesthesia record on chart Past Psychological History: No Psychological Hx Reported Smoking Status: Former smoker Past Alcohol Use History: None Reported Past Drug Use History: None Reported - Past Family History Sister(s) Family Medical History: Cancer Additional Family Medical History / Comment(s): ovarian CA, lung CA Brother(s) Family Medical History: Cancer Additional Family Medical History / Comment(s): prostate CA Medications and Allergies Home Medications Medication Instructions Recorded Confirmed Type Budesonide-Formot 160-4.5 Mcg 2 puff INHALATION RT-BID 11/03/14 04/15/22 History [Symbicort 160-4.5 Mcg Inhaler] Tiotropium [place] [Spiriva 2 puff INHALATION RT-DAILY 11/03/14 04/15/22 History Respimat] amLODIPine BESYLATE 10 mg PO DAILY 04/11/18 04/15/22 History Latanoprost/Pf [Latanoprost 0.005% 1 drop BOTH EYES HS 05/23/19 04/15/22 History Eye Drop] calcitrioL [Calcitriol] 0.25 mcg PO DAILY 05/23/19 04/15/22 History hydroCHLOROthiazide 25 mg PO DAILY 12/24/21 04/15/22 History Atorvastatin Calcium [Lipitor] 80 mg PO HS 04/15/22 04/15/22 History Dorzolamide 2% [Trusopt 2%] 1 drops BOTH EYES BID 04/15/22 04/15/22 History Insulin Aspart Prot/Insuln Asp 60 unit SQ AC-BID 04/15/22 04/16/22 History [Novolog Mix 70-30 Flexpen] Losartan [Cozaar] 50 mg PO DAILY 04/15/22 04/15/22 History carvediloL [Coreg] 6.25 mg PO BID 04/15/22 04/15/22 History cloNIDine HCL [Catapres] 0.2 mg PO BID 04/15/22 04/15/22 History hydrALAZINE HCL [Apresoline] 100 mg PO BID 04/15/22 04/15/22 History Allergies Allergy/AdvReac Type Severity Reaction Status Date / Time clindamycin Allergy Anaphylaxis Verified 04/15/22 20:26 Physical Exam Vitals: Vital Signs Temp Pulse Pulse Resp BP BP Pulse Ox 04/16/22 11:41 80 04/16/22 08:00 98.6 F 95 18 142/66 95 04/16/22 03:23 96.4 F L 80 20 135/63 96 04/15/22 23:06 101 H 22 156/73 95 04/15/22 22:58 101 H 22 156/73 95 04/15/22 16:22 97.6 F 99 20 143/71 96 Intake and Output 04/15/22 04/16/22 04/16/22 22:59 06:59 14:59 Output Total 1020 200 Balance -1020 -200 Output: Urine 1020 200 Other: Weight 102.058 kg 105.4 kg Results CBC & Chem 7: 04/15/22 16:32 04/16/22 07:12 Labs: Abnormal Lab Results - Last 24 Hours (Table) 04/15/22 04/15/22 04/15/22 Range/Units 16:32 16:32 22:53 RBC 3.27 L (4.30-5.90) m/uL Hgb 9.1 L (13.0-17.5) gm/dL Hct 28.6 L (39.0-53.0) % Neutrophils # 8.6 H (1.3-7.7) k/uL Lymphocytes # 0.4 L (1.0-4.8) k/uL Chloride (98-107) mmol/L Carbon Dioxide 20 L (22-30) mmol/L BUN 62 H (9-20) mg/dL Creatinine 4.35 H (0.66-1.25) mg/dL Glucose 116 H (74-99) mg/dL POC Glucose (mg/dL) 144 H (70-110) mg/dL Calcium 6.8 L (8.4-10.2) mg/dL 04/16/22 04/16/22 04/16/22 Range/Units 06:04 07:12 11:44 RBC (4.30-5.90) m/uL Hgb (13.0-17.5) gm/dL Hct (39.0-53.0) % Neutrophils # (1.3-7.7) k/uL Lymphocytes # (1.0-4.8) k/uL Chloride 108 H (98-107) mmol/L Carbon Dioxide (22-30) mmol/L BUN 66 H (9-20) mg/dL Creatinine 4.60 H (0.66-1.25) mg/dL Glucose 129 H (74-99) mg/dL POC Glucose (mg/dL) 151 H 258 H (70-110) mg/dL Calcium 6.5 L (8.4-10.2) mg/dL Thrombosis Risk Factor Assmnt - Choose All That Apply Any of the Below Risk Factors Present?: Yes Each Factor Represents 1 point: Abnormal pulmonary function (COPD), Obesity (BMI >25), Swollen legs (current) Other Risk Factors: Yes Each Risk Factor Represents 2 Points: Age 61-74 years Each Risk Factor Represents 3 Points: Family history of DVT/PE Other congenital or acquired thrombophilia - If yes, enter type in comment: No Thrombosis Risk Factor Assessment Total Risk Factor Score: 8 Thrombosis Risk Factor Assessment Level: High Risk
[2022-04-16] MEDS: INSULN ASP PRT/INSULIN ASPART 100 UNIT/ML 10 ML VIAL SQ SCH ×2 (12:22→17:00)
--- NOTE | 2022-04-16 13:06 | P.CRDCN ---
History of Present Illness Consult date: 04/16/22 History of present illness: Patient is a pleasant 58-year-old gentleman with known history of hyperlipidemia hypertension previous [place] chronic kidney disease COPD. We have been consulted to see the patient for congestive heart exacerbation. Patient follows with Dr. Saavedra in the office. Patient complains of shortness of breath and lower extremity edema. His chest x-ray showed atypical pneumonia correlated for congestive heart failure. Patient's BNP was 14,300. His EKG shows sinus rhythm with nonspecific ST-T wave abnormalities. Troponin was negative. Will diurese patient cautiously due to known history of end-stage renal disease. BUN is 62 creatinine is 4.35, He is on Lasix 20 mg every 12 nephrology is on the case will follow for further recommendations of Lasix. Patient's lisinopril is on hold due to kidney function. Will obtain an echocardiogram. Will continue with IV Lasix Review of Systems REVIEW OF SYSTEMS At the time of my exam: CONSTITUTIONAL: Denies fever or chills. EYES: Negative for vision changes ENT: Negative for hearing loss CARDIOVASCULAR: Denies chest pain, shortness of breath, diaphoresis, orthopnea, PND or palpitations. VASCULAR: Denies edema RESPIRATORY: Denies cough. Reports increased shortness of breath with activity GASTROINTESTINAL: Denies abdominal pain, diarrhea, constipation, nausea or vomiting. MUSCULOSKELETAL: Denies myalgias. NEUROLOGIC: Denies numbness, tingling, headache or weakness. ENDOCRINE: Denies fatigue, weight change, polydipsia or polyurina. GENITOURINARY: Denies burning, hematuria or urgency with micturation. HEMATOLOGIC: Denies history of anemia or bleeding. DERMATOLOGY: Denies rash or skin sores PSYCH: Negative for depression or hallucinations. Past Medical History Past Medical History: COPD, Diabetes Mellitus, Eye Disorder, Hyperlipidemia, Hypertension, Myocardial Infarction ([place]), Osteoarthritis ([place]), Renal Disease, Sleep Apnea/CPAP/BIPAP Additional Past Medical History / Comment(s): diabetic retinopathy, Last Myocardial Infarction Date:: 2014 History of Any Multi-Drug Resistant Organisms: None Reported Past Surgical History: Joint Replacement, Tonsillectomy Additional Past Surgical History / Comment(s): rt total hip replacement, lasik eye surgery, Past Anesthesia/Blood Transfusion Reactions: Previous Problems w/ Anesthesia Additional Past Anesthesia/Blood Transfusion Reaction / Comment(s): heartrate went very low in recovery room and admitted into icu after hip surgery at [facility]. 12/24/21: pt states "cardiac arrest during hip replacement surgery with Dr Ellis at [facility] in 2015"-anesthesia record on chart Past Psychological History: No Psychological Hx Reported Smoking Status: Former smoker Past Alcohol Use History: None Reported Past Drug Use History: None Reported - Past Family History Sister(s) Family Medical History: Cancer Additional Family Medical History / Comment(s): ovarian CA, lung CA Brother(s) Family Medical History: Cancer Additional Family Medical History / Comment(s): prostate CA Medications and Allergies Home Medications Medication Instructions Recorded Confirmed Type Budesonide-Formot 160-4.5 Mcg 2 puff INHALATION RT-BID 11/03/14 04/15/22 History [Symbicort 160-4.5 Mcg Inhaler] Tiotropium [place] [Spiriva 2 puff INHALATION RT-DAILY 11/03/14 04/15/22 History Respimat] amLODIPine BESYLATE 10 mg PO DAILY 04/11/18 04/15/22 History Latanoprost/Pf [Latanoprost 0.005% 1 drop BOTH EYES HS 05/23/19 04/15/22 History Eye Drop] calcitrioL [Calcitriol] 0.25 mcg PO DAILY 05/23/19 04/15/22 History hydroCHLOROthiazide 25 mg PO DAILY 12/24/21 04/15/22 History Atorvastatin Calcium [Lipitor] 80 mg PO HS 04/15/22 04/15/22 History Dorzolamide 2% [Trusopt 2%] 1 drops BOTH EYES BID 04/15/22 04/15/22 History Insulin Aspart Prot/Insuln Asp 60 unit SQ AC-BID 04/15/22 04/16/22 History [Novolog Mix 70-30 Flexpen] Losartan [Cozaar] 50 mg PO DAILY 04/15/22 04/15/22 History carvediloL [Coreg] 6.25 mg PO BID 04/15/22 04/15/22 History cloNIDine HCL [Catapres] 0.2 mg PO BID 04/15/22 04/15/22 History hydrALAZINE HCL [Apresoline] 100 mg PO BID 04/15/22 04/15/22 History Allergies Allergy/AdvReac Type Severity Reaction Status Date / Time clindamycin Allergy Anaphylaxis Verified 04/15/22 20:26 Physical Exam Vitals: Vital Signs Temp Pulse Pulse Resp BP BP Pulse Ox 04/16/22 11:49 80 04/16/22 11:41 80 04/16/22 08:00 98.6 F 95 18 142/66 95 04/16/22 03:23 96.4 F L 80 20 135/63 96 04/15/22 23:06 101 H 22 156/73 95 04/15/22 22:58 101 H 22 156/73 95 04/15/22 16:22 97.6 F 99 20 143/71 96 Intake and Output 04/15/22 04/16/22 04/16/22 22:59 06:59 14:59 Output Total 1020 200 Balance -1020 -200 Output: Urine 1020 200 Other: Weight 102.058 kg 105.4 kg General: The patient is awake and alert, in no distress, and does not appear acutely ill. Skin: Skin is warm and dry and no rashes or lesions are noted. Eye: Pupils are equal, round and reactive to light, extra-ocular movements are intact; there is normal conjunctiva bilaterally. Ears, nose, mouth and throat: There are moist mucous membranes and no oral lesions. Neck: The neck is supple, there is no tenderness or JVD. Cardiovascular: There is irregular regular rate and rhythm. No murmur, rub or gallop is appreciated. Respiratory: Lungs are clear to auscultation, respirations are non-labored, breath sounds are equal. Gastrointestinal: Soft, non-distended, non-tender abdomen without masses or organomegaly noted. There is no rebound or guarding present. Bowel sounds are unremarkable. Back: There is no tenderness to palpation in the midline. There is no obvious deformity. Musculoskeletal: Normal ROM, no tenderness, There is no pedal edema. There is no calf tenderness or swelling. Extremities: Mild bilateral pitting edema Vascular: Femoral pulse is normal. Posterior tibial pulses are normal .Dorsalis pedis is palpable. Neurological: CN II-XII intact. There are no obvious motor or sensory deficits. Speech is normal. Psychiatric: Cooperative, appropriate mood & affect, normal judgment Results 04/15/22 16:32 04/16/22 07:12 Cardiac Enzymes 04/15/22 04/15/22 Range/Units 16:32 16:32 AST 19 (17-59) U/L Troponin I <0.012 (0.000-0.034) ng/mL Coagulation 04/15/22 Range/Units 16:32 PT 10.7 (9.0-12.0) sec APTT 26.6 (22.0-30.0) sec CBC 04/15/22 Range/Units 16:32 WBC 10.0 (3.8-10.6) k/uL RBC 3.27 L (4.30-5.90) m/uL Hgb 9.1 L (13.0-17.5) gm/dL Hct 28.6 L (39.0-53.0) % Plt Count 311 (150-450) k/uL Comprehensive Metabolic Panel 04/15/22 04/16/22 Range/Units 16:32 07:12 Sodium 140 140 (137-145) mmol/L Potassium 4.4 4.8 (3.5-5.1) mmol/L Chloride 107 108 H (98-107) mmol/L Carbon Dioxide 20 L 22 (22-30) mmol/L BUN 62 H 66 H (9-20) mg/dL Creatinine 4.35 H 4.60 H (0.66-1.25) mg/dL Glucose 116 H 129 H (74-99) mg/dL Calcium 6.8 L 6.5 L (8.4-10.2) mg/dL AST 19 (17-59) U/L ALT 23 (4-49) U/L Alkaline Phosphatase 116 (38-126) U/L Total Protein 7.0 (6.3-8.2) g/dL Albumin 3.9 (3.5-5.0) g/dL Current Medications Generic Name Dose Route Start Last Admin Trade Name Freq PRN Reason Stop Dose Admin Acetaminophen 650 mg 04/15/22 20:16 Acetaminophen Tab 325 Mg Tab PO Q6HR PRN Mild Pain or Fever > 100.5 Hydrocodone Bitart/Acetaminophen 1 each 04/15/22 20:16 Hydrocodone/Apap 5-325mg 1 Each Tab PO Q4HR PRN Moderate Pain (Scale 4 to 6) Amlodipine Besylate 10 mg 04/17/22 09:00 Amlodipine 10 Mg Tab PO DAILY DESHAWN Atorvastatin Calcium 80 mg 04/15/22 23:15 04/15/22 23:35 Atorvastatin 80 Mg Tab PO 80 mg HS DESHAWN Administration Budesonide/Formoterol Fumarate 2 puff 04/15/22 23:03 04/16/22 07:59 Symbicort 160-4.5 Mcg Inhaler INHALATION 2 puff RT-BID DESHAWN Administration Calcitriol 0.25 mcg 04/17/22 09:00 Calcitriol 0.25 Mcg Cap PO DAILY DESHAWN Carvedilol 6.25 mg 04/15/22 23:15 04/16/22 09:03 Carvedilol 6.25 Mg Tab PO 6.25 mg BID DESHAWN Administration Clonidine 0.2 mg 04/15/22 23:15 04/16/22 09:03 Clonidine Hcl 0.2 Mg Tab PO 0.2 mg BID DESHAWN Administration Dorzolamide HCl 1 drops 04/15/22 23:15 04/16/22 09:03 Dorzolamide Hcl 2% Drops 10 Ml Btl BOTH EYES 1 drops BID DESHAWN Administration Furosemide 80 mg 04/16/22 21:00 Furosemide 10 Mg/Ml 10 Ml Vial IV BID DESHAWN Heparin Sodium (Porcine) 5,000 unit 04/16/22 16:00 Heparin Sodium,Porcine/Pf 5,000 Unit/0.5 Ml Syringe SQ Q8HR DESHAWN Hydralazine HCl 100 mg 04/15/22 23:15 04/16/22 09:03 Hydralazine Hcl 50 Mg Tab PO 100 mg BID DESHAWN Administration Insulin Aspart 0 unit 04/16/22 07:30 04/16/22 12:23 Insulin Aspart (Novolog) 100 Unit/Ml Vial SQ Not Given ACHS [facility] Protocol Insulin Aspart 60 unit 04/16/22 11:15 04/16/22 12:22 Insuln Asp Prt/Insulin Aspart 100 Unit/Ml 10 Ml Vial SQ 60 unit AC-BID DESHAWN Administration Ipratropium [place] 0.5 mg 04/16/22 12:00 04/16/22 11:36 Ipratropium 0.5 Mg/2.5 Ml Nebu INHALATION 0.5 mg RT-QID DESHAWN Administration Latanoprost 1 drops 04/15/22 23:15 04/15/22 23:35 Latanoprost 0.005% Ophth Drops 2.5 Ml Btl BOTH EYES 1 drops HS DESHAWN Administration Naloxone HCl 0.2 mg 04/15/22 20:16 Naloxone 0.4 Mg/Ml 1 Ml Vial IV Q2M PRN Opioid Reversal Ondansetron HCl 4 mg 04/15/22 20:16 Ondansetron 4 Mg/2 Ml Vial IVP Q8HR PRN Nausea And Vomiting Intake and Output 04/15/22 04/16/22 04/16/22 22:59 06:59 14:59 Output Total 1020 200 Balance -1020 -200 Output: Urine 1020 200 Other: Weight 102.058 kg 105.4 kg 04/15/22 16:32 04/16/22 07:12 Assessment and Plan Assessment: Acute on chronic congestive heart failure with an unknown EF Acute kidney injury Diabetic Plan: Will obtain an echocardiogram Will continue IV Lasix per nephrology Continue to hold lisinopril based on kidney function Further recommendations based on clinical course The above impression and plan of care have been discussed and directed by the signing physician. Alysia Trinidad, nurse practitioner, acting as scribe for signing physician.
[2022-04-16 16:41] LABS: Glucose,Whole Blood 44 mg/dL (70-110)
[2022-04-16 17:09] LABS: Glucose,Whole Blood 55 mg/dL (70-110)
[2022-04-16] MEDS: HEPARIN SODIUM,PORCINE/PF 5,000 UNIT/0.5 ML SYRINGE SQ SCH ×2 (17:23→23:37)
[2022-04-16 17:28] LABS: % Iron Saturation 12.34 (15.00-50.00)
[2022-04-16 20:31] LABS: Glucose,Whole Blood 83 mg/dL (70-110)
[2022-04-16] MEDS: LATANOPROST 0.005% OPHTH DROPS 2.5 ML BTL BOTH EYES SCH (21:02)
[2022-04-16] MEDS: ATORVASTATIN 80 MG TAB PO SCH (21:02)
[2022-04-16] MEDS: FUROSEMIDE 10 MG/ML 10 ML VIAL IV SCH (21:02)
[2022-04-17 05:57] LABS: Glucose,Whole Blood 101 mg/dL (70-110)
[2022-04-17] MEDS: INSULIN ASPART (NovoLOG) 100 UNIT/ML VIAL SQ SCH ×4 (05:58→20:27)
[2022-04-17] MEDS: IPRATROPIUM 0.5 MG/2.5 ML NEBU INHALATION SCH ×4 (08:31→21:13)
[2022-04-17] MEDS: SYMBICORT 160-4.5 MCG INHALER INHALATION SCH ×2 (08:32→21:13)
--- NOTE | 2022-04-17 09:05 | P.PN ---
Subjective Patient is seen in follow-up for acute kidney injury on chronic kidney disease. Creatinine 4.6 yesterday. On IV Lasix. Edema improving. Nonoliguric. Blood pressure stable. No vomiting or diarrhea. Vital signs are stable. General: Awake. No acute distress. HEENT: Head exam is unremarkable. LUNGS: Breath sounds decreased. HEART: Rate and Rhythm are regular. ABDOMEN: Soft, obese. EXTREMITITES: 2+ edema. Objective - Vital Signs Vital signs: Vital Signs Temp 97.1 F L 04/17/22 04:08 Pulse 82 04/17/22 08:41 Resp 16 04/17/22 08:41 BP 137/66 04/17/22 04:08 Pulse Ox 94 L 04/17/22 04:08 FiO2 Intake & Output 04/16/22 04/17/22 04/17/22 18:59 06:59 18:59 Output Total 550 1140 500 Balance -550 -1140 -500 Weight 104.5 kg Output: Urine 550 1140 500 - Labs CBC & Chem 7: 04/15/22 16:32 04/16/22 07:12 Labs: Abnormal Lab Results - Last 24 Hours (Table) 04/16/22 04/16/22 04/16/22 Range/Units 07:12 10:55 11:44 Chloride 108 H (98-107) mmol/L BUN 66 H (9-20) mg/dL Creatinine 4.60 H (0.66-1.25) mg/dL Glucose 129 H (74-99) mg/dL POC Glucose (mg/dL) 258 H (70-110) mg/dL Calcium 6.5 L (8.4-10.2) mg/dL Iron 25 L (65-175) ug/dL TIBC 200 L (228-460) ug/dL % Saturation 12.34 L (15.00-50.00) Transferrin 143.0 L (204.0-354.0) mg/dL 04/16/22 04/16/22 Range/Units 16:39 17:08 Chloride (98-107) mmol/L BUN (9-20) mg/dL Creatinine (0.66-1.25) mg/dL Glucose (74-99) mg/dL POC Glucose (mg/dL) 44 L 55 L (70-110) mg/dL Calcium (8.4-10.2) mg/dL Iron (65-175) ug/dL TIBC (228-460) ug/dL % Saturation (15.00-50.00) Transferrin (204.0-354.0) mg/dL Assessment and Plan Plan: Assessment: 1. Acute kidney injury secondary to ATN secondary to cardiorenal syndrome. Creatinine 4.6 yesterday. 2. 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 Ba seline creatinine near 4. 3. Volume overload. Improving with diuresis. 4. Diabetes mellitus. 5. Acute on chronic diastolic CHF. 6. Hypertension with chronic kidney disease. 7. Anemia of chronic kidney disease. Iron deficiency noted. Plan: Maintain Lasix 80 mg IV twice daily. Low-salt diet and 1500 mL fluid restriction. Follow-up phosphorus level. Add IV iron. Follow-up echocardiogram. Patient's AV fistula surgery had to be rescheduled twice outpatient. Stressed importance of getting this done as soon as possible. Continue to assess daily for need for renal replacement therapy.
[2022-04-17] MEDS: INSULN ASP PRT/INSULIN ASPART 100 UNIT/ML 10 ML VIAL SQ SCH ×2 (09:09→17:35)
[2022-04-17] MEDS: hydrALAZINE HCL 50 MG TAB PO SCH ×2 (09:25→20:30)
[2022-04-17] MEDS: HEPARIN SODIUM,PORCINE/PF 5,000 UNIT/0.5 ML SYRINGE SQ SCH ×3 (09:26→23:08)
[2022-04-17] MEDS: cloNIDine HCL 0.2 MG TAB PO SCH ×2 (09:26→20:31)
[2022-04-17] MEDS: DORZOLAMIDE HCL 2% DROPS 10 ML BTL BOTH EYES SCH ×2 (09:26→20:31)
[2022-04-17] MEDS: FUROSEMIDE 10 MG/ML 10 ML VIAL IV SCH ×2 (09:26→20:31)
[2022-04-17] MEDS: carvediloL 6.25 MG TAB PO SCH ×2 (09:26→20:31)
[2022-04-17] MEDS: amLODIPine 10 MG TAB PO SCH (09:26)
[2022-04-17] MEDS: SODIUM FERRIC GLUCONAT-SUCROSE 125 MG in SODIUM CHLORIDE 0.9% 100 ML IVPB SCH (09:54)
--- NOTE | 2022-04-17 11:22 | CA ---
Transthoracic Echo Report Name: Julio César Panchal Age: 66 Gender: M : 1955 Exam Date: 04/16/2022 14:37 Exam Location: [facility] Ht (in): 70 Wt (lb): 232 Ordering Physician: Alysia Trinidad Attending/Referring Phys: Wool Grader Ana Plaza RDCS Procedure CPT: Indications: chf Cardiac Hx: Technical Quality: Fair Contrast 1: Total Dose (mL): Contrast 2: Total Dose (mL): MEASUREMENTS (Male / Female) Normal Values 2D ECHO LV Diastolic Diameter PLAX 5.7 cm 4.2 - 5.9 / 3.9 - 5.3 cm LV Systolic Diameter PLAX 4.1 cm IVS Diastolic Thickness 1.3 cm 0.6 - 1.0 / 0.6 - 0.9 cm LVPW Diastolic Thickness 1.3 cm 0.6 - 1.0 / 0.6 - 0.9 cm LV Relative Wall Thickness 0.4 RV Internal Dim ED PLAX 3.2 cm LA Volume 93.3 cm??? 18 - 58 / 22 - 52 cm??? M-MODE Aortic Root Diameter MM 2.8 cm LA Systolic Diameter MM 4.4 cm LA Ao Ratio MM 1.6 AV Cusp Separation MM 1.8 cm DOPPLER AV Peak Velocity 199.8 cm/s AV Peak Gradient 16.0 mmHg AV Mean Velocity 153.6 cm/s AV Mean Gradient 9.8 mmHg AV Velocity Time Integral 49.1 cm LVOT Peak Velocity 104.8 cm/s LVOT Peak Gradient 4.4 mmHg MV Area PHT 2.6 cm??? Mitral E Point Velocity 165.5 cm/s Mitral A Point Velocity 106.6 cm/s Mitral E to A Ratio 1.6 MV Deceleration Time 294.0 ms MV E' Velocity 4.3 cm/s Mitral E to MV E' Ratio 38.7 TR Peak Velocity 277.0 cm/s TR Peak Gradient 30.7 mmHg Right Ventricular Systolic Press 35.7 mmHg FINDINGS Left Ventricle Mildly increased left ventricular wall thickness. Normal left ventricular systolic function with no obvious regional wall motion abnormalities. Left ventricular ejection fraction is estimated at 55 %. Right Ventricle Normal right ventricular size. Mild pulmonary hypertension. Right Atrium Normal right atrial size. Left Atrium Severely increased left atrial volume. Mitral Valve Structurally normal mitral valve. Mitral valve thickened. Mild mitral annular calcification. Moderate mitral regurgitation. Aortic Valve No aortic valve stenosis or regurgitation. Tricuspid Valve Mild tricuspid regurgitation. Pulmonic Valve Trace pulmonic regurgitation. Pericardium No pericardial effusion. Aorta Normal size aortic root and proximal ascending aorta. CONCLUSIONS Normal LV systolic function Mild to moderate mitral regurgitation Previewed by: Dr. Wander Saavedra MD (Electronically Signed) Final Date: 17 April 2022 11:21
--- NOTE | 2022-04-17 11:52 | P.PN ---
Subjective Progress Note Date: 04/17/22 Patient is seen today resting comfortably in bed in no signs of acute distress. He denies increased shortness of breath or chest pain. He is diuresing well. Lower extremity edema has improved. He continues on Lasix IV 80 mg twice a day. Patient underwent an echocardiogram yesterday which showed a normal LV function with mild to moderate mitral regurgitation. Vital signs remained stable. Will continue with current dose of IV Lasix which is being titrated by nephrology. Objective - Vital Signs Vital signs: Vital Signs Temp 97.2 F L 04/17/22 08:00 Pulse 82 04/17/22 08:41 Resp 16 04/17/22 08:41 BP 130/67 04/17/22 08:00 Pulse Ox 91 L 04/17/22 08:00 FiO2 Intake & Output 04/16/22 04/17/22 04/17/22 18:59 06:59 18:59 Output Total 550 1140 650 Balance -550 -1140 -650 Weight 104.5 kg Output: Urine 550 1140 650 - Exam PHYSICAL EXAM: VITAL SIGNS: Reviewed. GENERAL: Well-developed in no acute distress. HEENT: Head is normocephalic. Pupils are equal, round. Sclerae anicteric. Mucous membranes of the mouth are moist. NECK: Supple. No JVD or thyromegaly RESPIRATORY: Respirations even and unlabored. Lungs diminished to auscultation bilaterally. CARDIO: Regular rate and rhythm. S1 and S2 heard. No murmur or gallops. EXTREMITIES: Normal range of motion. No clubbing or cyanosis. Peripheral pulses intact. Mild bilateral lower extremity edema NEURO: Orientated to person, time, mood is appropriate - Labs CBC & Chem 7: 04/15/22 16:32 04/16/22 07:12 Labs: Abnormal Lab Results - Last 24 Hours (Table) 04/16/22 04/16/22 04/16/22 Range/Units 10:55 16:39 17:08 POC Glucose (mg/dL) 44 L 55 L (70-110) mg/dL Iron 25 L (65-175) ug/dL TIBC 200 L (228-460) ug/dL % Saturation 12.34 L (15.00-50.00) Transferrin 143.0 L (204.0-354.0) mg/dL Assessment and Plan Assessment: Acute on chronic congestive heart failure with an unknown EF Acute chronic kidney injury Diabetic Plan: echocardiogram obtained and reviewed Will continue IV Lasix per nephrology Continue to hold lisinopril based on kidney function Further recommendations based on clinical course The above impression and plan of care have been discussed and directed by the signing physician. Alysia Trinidad, nurse practitioner, acting as scribe for signing physician.
[2022-04-17 11:54] LABS: Glucose,Whole Blood 158 mg/dL (70-110)
[2022-04-17 12:06] LABS: Calcium 6.7 mg/dL (8.4-10.2)
--- NOTE | 2022-04-17 13:24 | P.PN ---
Subjective Progress Note Date: 04/17/22 Patient is a 66-year-old male came in because of a competent of shortness of breath patient is found to have some pulmonary edema patient gained about 10 pounds patient does have edema in bilateral lower expertise as well. Patient had a normal ejection fraction. Patient denied any nausea vomiting patient and use of nonsteroidal anti-intermittent medications. Patient does have a history of long-standing diabetes with us and a chronic kidney disease stage IV with baseline serum creatinine of around 2.5 patient denied any fever chills chest x- ray showing pulmonary edema patient has highly elevated BNP of 14,000. Patient had a AV fistula procedure that was canceled twice in the past because of some issues at home. 04/17/2022 Patient is evaluated today resting in bed. He reports significant improvement in his symptoms, feels less short of breath today. He has diuresed about 1.3 L overnight. Blood glucose dropped into the 40s on his 70/30, afternoon dose has been decreased. Creatinine up to 4.80 today. Patient continues on IV lasix 80 mg BID and 1500 FR. Echocardiogram completed showing normal LV systolic dysfunction, mild to moderate mitral regurgitation. 90% room air. Review of Systems Constitutional: Denied any fatigue denied any fever. Cardio vascular: denied any chest pain, palpitations Gastrointestinal: denied any nausea, vomiting, diarrhea Pulmonary: Denied any shortness of breath cough Neurologic denied any new focal deficits All inpatient medications were reviewed and appropriate changes in these medications as dictated in the interval history and assessment and plan. PHYSICAL EXAMINATION: GENERAL: The patient is alert and oriented x3, not in any acute distress. Well developed, well nourished. HEENT: Pupils are round and equally reacting to light. EOMI. No scleral icterus. No conjunctival pallor. Normocephalic, atraumatic. No pharyngeal erythema. No thyromegaly. CARDIOVASCULAR: S1 and S2 present. No murmurs, rubs, or gallops. She does have elevated JVD PULMONARY: Chest is clear to auscultation, no wheezing or crackles. ABDOMEN: Soft, nontender, nondistended, normoactive bowel sounds. No palpable organomegaly. MUSCULOSKELETAL: No joint swelling or deformity. EXTREMITIES: No cyanosis, clubbing, bilateral lower exudative edema NEUROLOGICAL: Gross neurological examination did not reveal any focal deficits. SKIN: No rashes. Assessment and plan -Acute kidney injury believed to be secondary to acute tubular necrosis which is again secondary to cardiorenal syndrome, creatinine 4.8 today. -Chronic kidney disease stage IV/5 secondary to diabetic nephropathy: Patient is on Lasix 80 mg IV twice a day which will be continued along with low-salt diet and 1500 mL fluid restriction -Type 2 diabetes mellitus resumed on home medication patient experienced hypoglycemia and insulin decreased -Congestive heart failure chronic diastolic dysfunction with normal LV function, continues on IV lasix BID -Hypertension: Hold off lisinopril continue rest of the home medications -Anemia of chronic kidney disease receiving IV ferrlecit -Hyperlipidemia -Sleep apnea -Diabetic retinopathy -Coronary artery disease DVT prophylaxis: Subcutaneous heparin Full Code The impression and plan of care has been dictated by Nurse Lubna Pra ctitioner as directed. Dr. Jordy MD I have performed a history and physical examination and medical decision making of this patient, discussed the same with the dictator, and agree with the dictat ors assessment and plan as written, documented as a scribe. Based on total visit time, I have performed more than 50% of this visit. Objective - Vital Signs Vital signs: Vital Signs Temp 97.1 F L 04/17/22 04:08 Pulse 82 04/17/22 08:41 Resp 16 04/17/22 08:41 BP 137/66 04/17/22 04:08 Pulse Ox 94 L 04/17/22 04:08 FiO2 Intake & Output 04/16/22 04/17/22 04/17/22 18:59 06:59 18:59 Output Total 550 1140 500 Balance -550 -1140 -500 Weight 104.5 kg Output: Urine 550 1140 500 - Labs CBC & Chem 7: 04/15/22 16:32 04/17/22 11:18 Labs: Abnormal Lab Results - Last 24 Hours (Table) 04/16/22 04/16/22 04/16/22 Range/Units 07:12 10:55 11:44 Chloride 108 H (98-107) mmol/L BUN 66 H (9-20) mg/dL Creatinine 4.60 H (0.66-1.25) mg/dL Glucose 129 H (74-99) mg/dL POC Glucose (mg/dL) 258 H (70-110) mg/dL Calcium 6.5 L (8.4-10.2) mg/dL Iron 25 L (65-175) ug/dL TIBC 200 L (228-460) ug/dL % Saturation 12.34 L (15.00-50.00) Transferrin 143.0 L (204.0-354.0) mg/dL 04/16/22 04/16/22 Range/Units 16:39 17:08 Chloride (98-107) mmol/L BUN (9-20) mg/dL Creatinine (0.66-1.25) mg/dL Glucose (74-99) mg/dL POC Glucose (mg/dL) 44 L 55 L (70-110) mg/dL Calcium (8.4-10.2) mg/dL Iron (65-175) ug/dL TIBC (228-460) ug/dL % Saturation (15.00-50.00) Transferrin (204.0-354.0) mg/dL Assessment and Plan Time with Patient: Less than 30
[2022-04-17 16:39] LABS: Glucose,Whole Blood 211 mg/dL (70-110)
[2022-04-17] MEDS: CALCIUM ACETATE 667 MG TAB PO SCH (17:34)
[2022-04-17 20:24] LABS: Glucose,Whole Blood 144 mg/dL (70-110)
[2022-04-17] MEDS: ATORVASTATIN 80 MG TAB PO SCH (20:30)
[2022-04-17] MEDS: LATANOPROST 0.005% OPHTH DROPS 2.5 ML BTL BOTH EYES SCH (20:31)
[2022-04-18 05:58] LABS: Glucose,Whole Blood 170 mg/dL (70-110)
[2022-04-18] MEDS: INSULIN ASPART (NovoLOG) 100 UNIT/ML VIAL SQ SCH ×4 (06:52→20:40)
[2022-04-18] MEDS: CALCIUM ACETATE 667 MG TAB PO SCH ×3 (06:52→16:24)
[2022-04-18] MEDS: IPRATROPIUM 0.5 MG/2.5 ML NEBU INHALATION SCH ×4 (08:15→19:41)
[2022-04-18] MEDS: SYMBICORT 160-4.5 MCG INHALER INHALATION SCH ×2 (08:15→19:40)
[2022-04-18 08:43] LABS: Calcium 6.9 mg/dL (8.4-10.2); Potassium 4.5 mmol/L (3.5-5.1)
--- NOTE | 2022-04-18 09:05 | P.PN ---
Subjective Patient is seen in follow-up for acute kidney injury on chronic kidney disease. Creatinine 5.32 today. On IV Lasix. Still quite edematous. Nonoliguric. No vomiting or diarrhea. Vital signs are stable. General: Awake. No acute distress. HEENT: Head exam is unremarkable. LUNGS: Breath sounds decreased. HEART: Rate and Rhythm are regular. ABDOMEN: Soft, obese. EXTREMITITES: 2+ edema. Objective - Vital Signs Vital signs: Vital Signs Temp 98.0 F 04/18/22 03:42 Pulse 87 04/18/22 08:27 Resp 16 04/18/22 08:27 BP 162/70 04/18/22 03:42 Pulse Ox 96 04/18/22 03:42 FiO2 Intake & Output 04/17/22 04/18/22 04/18/22 18:59 06:59 18:59 Output Total 1100 1400 Balance -1100 -1400 Weight 102.6 kg Output: Urine 1100 1400 - Labs CBC & Chem 7: 04/15/22 16:32 04/18/22 06:47 Labs: Abnormal Lab Results - Last 24 Hours (Table) 04/17/22 04/17/22 04/17/22 Range/Units 11:18 11:18 11:52 Chloride 108 H (98-107) mmol/L BUN 76 H (9-20) mg/dL Creatinine 4.80 H (0.66-1.25) mg/dL Glucose 135 H (74-99) mg/dL POC Glucose (mg/dL) 158 H (70-110) mg/dL Calcium 6.7 L (8.4-10.2) mg/dL Phosphorus 6.2 H (2.5-4.5) mg/dL 04/17/22 04/17/22 04/18/22 Range/Units 16:37 :22 05:56 Chloride (98-107) mmol/L BUN (9-20) mg/dL Creatinine (0.66-1.25) mg/dL Glucose (74-99) mg/dL POC Glucose (mg/dL) 211 H 144 H 170 H (70-110) mg/dL Calcium (8.4-10.2) mg/dL Phosphorus (2.5-4.5) mg/dL 04/18/22 Range/Units 06:47 Chloride 108 H (98-107) mmol/L BUN 78 H (9-20) mg/dL Creatinine 5.32 H (0.66-1.25) mg/dL Glucose 144 H (74-99) mg/dL POC Glucose (mg/dL) (70-110) mg/dL Calcium 6.9 L (8.4-10.2) mg/dL Phosphorus (2.5-4.5) mg/dL Assessment and Plan Plan: Assessment: 1. Acute kidney injury secondary to ATN secondary to cardiorenal syndrome. Creatinine 5.32 today. 2. 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 Baseline creatinine near 4. 3. Volume overload. Slowly improving with diuresis. 4. Diabetes mellitus. 5. Acute on chronic diastolic CHF with moderate MR. 6. Hypertension with chronic kidney disease. Partially volume sensitive. 7. Anemia of chronic kidney disease. Iron deficiency noted. 8. Hyperphosphatemia secondary to acute kidney injury. On PhosLo. Plan: Maintain Lasix 80 mg IV twice daily. Low-salt diet and 1500 mL fluid restriction. Maintain IV iron. Increase hydralazine to 100 mg 3 times daily. Hold for systolic blood pressure less than 120. Patient's AV fistula surgery had to be rescheduled twice outpatient. Stressed importance of getting this done as soon as possible. Due to severely depressed GFR and volume overload, initiated renal replacement therapy. Consult vascular surgery for Pcath placement. Plan for first treatment of hemodialysis today and second treatment tomorrow. Outpatient dialysis to be set up by test case developer. Patient in agreement with the plan.
[2022-04-18] MEDS: INSULN ASP PRT/INSULIN ASPART 100 UNIT/ML 10 ML VIAL SQ SCH ×2 (09:18→17:04)
[2022-04-18] MEDS: FUROSEMIDE 10 MG/ML 10 ML VIAL IV SCH ×2 (09:18→20:37)
[2022-04-18] MEDS: amLODIPine 10 MG TAB PO SCH (09:19)
[2022-04-18] MEDS: carvediloL 6.25 MG TAB PO SCH (09:19)
[2022-04-18] MEDS: cloNIDine HCL 0.2 MG TAB PO SCH ×2 (09:19→20:39)
[2022-04-18] MEDS: DORZOLAMIDE HCL 2% DROPS 10 ML BTL BOTH EYES SCH ×2 (09:19→20:39)
[2022-04-18] MEDS: hydrALAZINE HCL 50 MG TAB PO SCH ×3 (10:25→20:38)
[2022-04-18] MEDS ORDERED: carvediloL 6.25 MG TAB PO STA (10:34)
[2022-04-18] MEDS: HEPARIN SODIUM,PORCINE/PF 5,000 UNIT/0.5 ML SYRINGE SQ SCH ×3 (11:19→23:33)
[2022-04-18] MEDS ORDERED: SODIUM CHLORIDE 0.9% 500 ML 500 ML IV ONE (11:53)
[2022-04-18] MEDS: MIDAZOLAM 2 MG/2 ML VIAL IV ONE ×2 (12:01→12:47)
[2022-04-18] MEDS: LIDOCAINE 1% INJ 10MG/ML (30 ML VIAL-PF) SQ ONE ×3 (12:01→12:51)
--- NOTE | 2022-04-18 12:36 | P.PN ---
Subjective Progress Note Date: 04/18/22 Patient is a 66-year-old male came in because of a competent of shortness of breath patient is found to have some pulmonary edema patient gained about 10 pounds patient does have edema in bilateral lower expertise as well. Patient had a normal ejection fraction. Patient denied any nausea vomiting patient and use of nonsteroidal anti-intermittent medications. Patient does have a history of long-standing diabetes with us and a chronic kidney disease stage IV with baseline serum creatinine of around 2.5 patient denied any fever chills chest x- ray showing pulmonary edema patient has highly elevated BNP of 14,000. Patient had a AV fistula procedure that was canceled twice in the past because of some issues at home. 04/17/2022 Patient is evaluated today resting in bed. He reports significant improvement in his symptoms, feels less short of breath today. He has diuresed about 1.3 L overnight. Blood glucose dropped into the 40s on his 70/30, afternoon dose has been decreased. Creatinine up to 4.80 today. Patient continues on IV lasix 80 mg BID and 1500 FR. Echocardiogram completed showing normal LV systolic dysfunction, mild to moderate mitral regurgitation. 90% room air. 04/18/22. Patient seen and examined. Patient continues to complain of swelling of lower extremities. Still gets short of breath on exertion. Nephrology recommended initiating patient on dialysis. Vascular surgery consulted for dialysis catheter placement. Probable first run OF Dialysis Today. REVIEW OF SYSTEMS: CONSTITUTIONAL: No fever, no malaise, no fatigue. HEENT: No recent visual problems or hearing problems. Denied any sore throat. CARDIOVASCULAR: No chest pain, orthopnea PULMONARY: Complaining of shortness of breath. no cough, no hemoptysis. GASTROINTESTINAL: No diarrhea, no nausea, no vomiting, no abdominal pain. PHYSICAL EXAMINATION: GENERAL: The patient is alert and oriented x3, not in any acute distress. Well developed, well nourished. HEENT: Pupils are round and equally reacting to light. EOMI. No scleral icterus. No conjunctival pallor. Normocephalic, atraumatic. No pharyngeal erythema. No thyromegaly. CARDIOVASCULAR: S1 and S2 present. No murmurs, rubs, or gallops. PULMONARY: Chest is clear to auscultation, no wheezing or crackles. ABDOMEN: Soft, nontender, nondistended, normoactive bowel sounds. No palpable organomegaly. MUSCULOSKELETAL: No joint swelling or deformity. EXTREMITIES: 3+ pitting edema in lower extremities bilaterally NEUROLOGICAL: Gross neurological examination did not reveal any focal deficits. SKIN: No rashes. 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 Continue hydralazine to 100 mg 3 times daily. Hold for systolic blood pressure less than 120. Due to severely depressed GFR and volume overload, nephrology initiated renal replacement therapy. Consult vascular surgery for Pcath placement. Plan for first treatment of hemodialysis today and second treatment tomorrow Follow-up on nephrology recommendations Objective - Vital Signs Vital signs: Vital Signs Temp 98.1 F 04/18/22 08:00 Pulse 87 04/18/22 08:27 Resp 16 04/18/22 08:27 BP 185/61 04/18/22 08:00 Pulse Ox 96 04/18/22 08:00 FiO2 Intake & Output 04/17/22 04/18/22 04/18/22 18:59 06:59 18:59 Intake Total 360 Output Total 1100 1400 650 Balance -1100 -1400 -290 Weight 102.6 kg Intake: Oral 360 Output: Urine 1100 1400 650 - Labs CBC & Chem 7: 04/15/22 16:32 04/18/22 06:47 Labs: Abnormal Lab Results - Last 24 Hours (Table) 04/17/22 04/17/22 04/18/22 Range/Units 16:37 :22 05:56 Chloride (98-107) mmol/L BUN (9-20) mg/dL Creatinine (0.66-1.25) mg/dL Glucose (74-99) mg/dL POC Glucose (mg/dL) 211 H 144 H 170 H (70-110) mg/dL Calcium (8.4-10.2) mg/dL 04/18/22 Range/Units 06:47 Chloride 108 H (98-107) mmol/L BUN 78 H (9-20) mg/dL Creatinine 5.32 H (0.66-1.25) mg/dL Glucose 144 H (74-99) mg/dL POC Glucose (mg/dL) (70-110) mg/dL Calcium 6.9 L (8.4-10.2) mg/dL
[2022-04-18] MEDS: fentaNYL (PF) 50 MCG/ML 2 ML AMP IV ONE ×2 (12:51→12:57)
[2022-04-18] MEDS ORDERED: MIDAZOLAM 2 MG/2 ML VIAL IV ONE (12:57)
--- NOTE | 2022-04-18 13:23 | P.PN ---
Subjective This is a 66 year old male with a past medical history of hypertension, dyslipidemia, chronic kidney disease, COPD, former nicotine dependence. We have been consulted to see the patient for congestive heart exacerbation. Patient follows with Dr. Saavedra in the office. Patient complains of shortness of breath and lower extremity edema. Found to be in acute kidney injury and congestive heart failure. Patient started on IV Lasix, managed by nephrology. Echo revealed EF 55%, moderate mitral regurgitation. Patient seen and examined at bedside, no chest pain. Shortness of breath improved. BP continues to be elevated at 162/70 HR 76. GENERAL: In no acute distress. NECK: Supple without JVD or thyromegaly. LUNGS: Breath sounds diminished bases to auscultation bilaterally. Respiration equal and unlabored. No wheezes, rales or rhonchi. HEART: Regular rate and rhythm with systolic murmur at apex, No rubs or gallops. S1 and S2 heard. EXTREMITIES: Normal range of motion, 1-2+ bilateral edema. No clubbing or cyanosis. Peripheral pulses intact. ASSESSMENT Acute on chronic heart failure with preserved ejection fraction 55% Acute on chronic kidney disease Hypertension Dyslipidemia COPD Former tobacco use PLAN Increase carvedilol 12.5mg BID Continue statin, amlodipine, hydralazine Nephrology management IV Lasix Monitor I/Os, daily weights, renal function and electrolytes Further recommendations based on clinical course Nurse Practitioner note has been reviewed, I agree with a documented findings and plan of care. Patient was seen and examined. Objective - Vital Signs Vital signs: Vital Signs Temp 98.1 F 04/18/22 08:00 Pulse 87 04/18/22 08:27 Resp 16 04/18/22 08:27 BP 185/61 04/18/22 08:00 Pulse Ox 96 04/18/22 08:00 FiO2 Intake & Output 04/17/22 04/18/22 04/18/22 18:59 06:59 18:59 Intake Total 360 Output Total 1100 1400 650 Balance -1100 -1400 -290 Weight 102.6 kg Intake: Oral 360 Output: Urine 1100 1400 650 - Labs CBC & Chem 7: 04/15/22 16:32 04/18/22 06:47 Labs: Abnormal Lab Results - Last 24 Hours (Table) 04/17/22 04/17/22 04/18/22 Range/Units 16:37 20:22 05:56 Chloride (98-107) mmol/L BUN (9-20) mg/dL Creatinine (0.66-1.25) mg/dL Glucose (74-99) mg/dL POC Glucose (mg/dL) 211 H 144 H 170 H (70-110) mg/dL Calcium (8.4-10.2) mg/dL 04/18/22 Range/Units 06:47 Chloride 108 H (98-107) mmol/L BUN 78 H (9-20) mg/dL Creatinine 5.32 H (0.66-1.25) mg/dL Glucose 144 H (74-99) mg/dL POC Glucose (mg/dL) (70-110) mg/dL Calcium 6.9 L (8.4-10.2) mg/dL
--- NOTE | 2022-04-18 14:06 | P.GSCN ---
History of Present Illness History of present illness: 56-year-old old gentleman patient has history of acute chronic renal failure. Patient came with shortness of breath consulted for placement of a dialysis catheter and graft medical history history of COPD, diabetes, chronic renal failure, history of [place] in the past Chest few crackles the lung bases first and second sound present Abdomen protuberant no no peritoneal sign Vascular femorals are 1+ bilateral plan is placement of the dialysis catheter risk and complication discussed we will arrange Past Medical History Past Medical History: COPD, Diabetes Mellitus, Eye Disorder, Hyperlipidemia, Hypertension, Myocardial Infarction ([place]), Osteoarthritis (OA), Renal Disease, Sleep Apnea/CPAP/BIPAP Additional Past Medical History / Comment(s): diabetic retinopathy, Last Myocardial Infarction Date:: 2014 History of Any Multi-Drug Resistant Organisms: None Reported Past Surgical History: Joint Replacement, Tonsillectomy Additional Past Surgical History / Comment(s): rt total hip replacement, lasik eye surgery, Past Anesthesia/Blood Transfusion Reactions: Previous Problems w/ Anesthesia Additional Past Anesthesia/Blood Transfusion Reaction / Comm: heartrate went very low in recovery room and admitted into icu after hip surgery at [facility]. 12/24/21: pt states "cardiac arrest during hip replacement surgery with Dr Ellis at [facility] in 2014"-anesthesia record on chart Past Psychological History: No Psychological Hx Reported Smoking Status: Former smoker Past Alcohol Use History: None Reported Past Drug Use History: None Reported - Past Family History Sister(s) Family Medical History: Cancer Additional Family Medical History / Comment(s): ovarian CA, lung CA Brother(s) Family Medical History: Cancer Additional Family Medical History / Comment(s): prostate CA Medications and Allergies Home Medications Medication Instructions Recorded Confirmed Type Budesonide-Formot 160-4.5 Mcg 2 puff INHALATION RT-BID 11/03/14 04/15/22 History [Symbicort 160-4.5 Mcg Inhaler] Tiotropium [place] [Spiriva 2 puff INHALATION RT-DAILY 11/03/14 04/15/22 History Respimat] amLODIPine BESYLATE 10 mg PO DAILY 04/11/18 04/15/22 History Latanoprost/Pf [Latanoprost 0.005% 1 drop BOTH EYES HS 05/23/19 04/15/22 History Eye Drop] calcitrioL [Calcitriol] 0.25 mcg PO DAILY 05/23/19 04/15/22 History hydroCHLOROthiazide 25 mg PO DAILY 12/24/21 04/15/22 History Atorvastatin Calcium [Lipitor] 80 mg PO HS 04/15/22 04/15/22 History Dorzolamide 2% [Trusopt 2%] 1 drops BOTH EYES BID 04/15/22 04/15/22 History Insulin Aspart Prot/Insuln Asp 60 unit SQ AC-BID 04/15/22 04/16/22 History [Novolog Mix 70-30 Flexpen] Losartan [Cozaar] 50 mg PO DAILY 04/15/22 04/15/22 History carvediloL [Coreg] 6.25 mg PO BID 04/15/22 04/15/22 History cloNIDine HCL [Catapres] 0.2 mg PO BID 04/15/22 04/15/22 History hydrALAZINE HCL [Apresoline] 100 mg PO BID 04/15/22 04/15/22 History Allergies Allergy/AdvReac Type Severity Reaction Status Date / Time clindamycin Allergy Anaphylaxis Verified 04/15/22 20:26 Surgical - Exam Vital Signs Temp Pulse Resp BP Pulse Ox 97.6 F 99 20 143/71 96 04/15/22 16:22 04/15/22 16:22 04/15/22 16:22 04/15/22 16:22 04/15/22 16:22 Results - Labs 04/15/22 16:32 04/18/22 06:47 Abnormal Lab Results - Last 24 Hours (Table) 04/17/22 04/17/22 04/18/22 Range/Units 16:37 20:22 05:56 Chloride (98-107) mmol/L BUN (9-20) mg/dL Creatinine (0.66-1.25) mg/dL Glucose (74-99) mg/dL POC Glucose (mg/dL) 211 H 144 H 170 H (70-110) mg/dL Calcium (8.4-10.2) mg/dL 04/18/22 Range/Units 06:47 Chloride 108 H (98-107) mmol/L BUN 78 H (9-20) mg/dL Creatinine 5.32 H (0.66-1.25) mg/dL Glucose 144 H (74-99) mg/dL POC Glucose (mg/dL) (70-110) mg/dL Calcium 6.9 L (8.4-10.2) mg/dL Diabetes panel 04/18/22 Range/Units 06:47 Sodium 145 (137-145) mmol/L Potassium 4.5 (3.5-5.1) mmol/L Chloride 108 H (98-107) mmol/L Carbon Dioxide 24 (22-30) mmol/L BUN 78 H (9-20) mg/dL Creatinine 5.32 H (0.66-1.25) mg/dL Glucose 144 H (74-99) mg/dL Calcium 6.9 L (8.4-10.2) mg/dL Calcium panel 04/18/22 Range/Units 06:47 Calcium 6.9 L (8.4-10.2) mg/dL Pituitary panel 04/18/22 Range/Units 06:47 Sodium 145 (137-145) mmol/L Potassium 4.5 (3.5-5.1) mmol/L Chloride 108 H (98-107) mmol/L Carbon Dioxide 24 (22-30) mmol/L BUN 78 H (9-20) mg/dL Creatinine 5.32 H (0.66-1.25) mg/dL Glucose 144 H (74-99) mg/dL Calcium 6.9 L (8.4-10.2) mg/dL Adrenal panel 04/18/22 Range/Units 06:47 Sodium 145 (137-145) mmol/L Potassium 4.5 (3.5-5.1) mmol/L Chloride 108 H (98-107) mmol/L Carbon Dioxide 24 (22-30) mmol/L BUN 78 H (9-20) mg/dL Creatinine 5.32 H (0.66-1.25) mg/dL Glucose 144 H (74-99) mg/dL Calcium 6.9 L (8.4-10.2) mg/dL
--- NOTE | 2022-04-18 14:09 | P.PCN ---
Description of Procedure: Preop diagnoses is acute chronic renal failure graft posterior Same Active. Right IJ catheter this point placed a permanent dialysis catheter right femoral femoral approach ultrasound guided with local IV sedation Patient brought to the [facility] [employer] Steven of the neck was prepped and draped applied sterile manner sound guided micropuncture introduced to the right jugular vein jugular vein was very enlarged guidewire was passed and guidewire was inserted towards the left most likely it was arterial aspect needle was removed pressure was held at this time we decided to place a catheter right femoral approach groin was prepped and draped applied sterile manner ultrasound-guided micropuncture dated introduced right femoral vein micropuncture guidewire was passed and dilator was advanced top the guidewire then we created tunnels through the terminal be brought 28 same dialysis permanent catheter dilator was advanced the sheath was advanced top the guidewire through the sheath we did use permanent dialysis catheter right femoral approach 6 secured with 3-0 nylon and flushed with heparin saline and patient are to the procedure well
--- NOTE | 2022-04-18 14:26 | IR ---
EXAMINATION TYPE: IR cvc insert central tunneled DATE OF EXAM: 04/18/2022 COMPARISON: NONE HISTORY: Fluoroscopy time. Fluoroscopy was provided to the referring clinician.
[2022-04-18] MEDS: SODIUM FERRIC GLUCONAT-SUCROSE 125 MG in SODIUM CHLORIDE 0.9% 100 ML IVPB SCH ×2 (14:50→20:39)
[2022-04-18 16:19] LABS: Glucose,Whole Blood 203 mg/dL (70-110)
[2022-04-18] MEDS: carvediloL 12.5 MG TAB PO SCH (16:24)
[2022-04-18] MEDS: HYDROcodone/APAP 5-325MG 1 EACH TAB PO PRN ×2 (16:35→20:37)
[2022-04-18 19:27] LABS: Hepatitis B Surface AB- Quant 3.5 mIU/mL; Hepatitis B Surface Antibody Nonreactive (Nonreactive); Hepatitis B Surface Antigen Nonreactive (Nonreactive)
[2022-04-18 19:41] LABS: Glucose,Whole Blood 229 mg/dL (70-110)
[2022-04-18] MEDS: ATORVASTATIN 80 MG TAB PO SCH (20:39)
[2022-04-18] MEDS: LATANOPROST 0.005% OPHTH DROPS 2.5 ML BTL BOTH EYES SCH (20:39)
[2022-04-19 05:56] LABS: Glucose,Whole Blood 171 mg/dL (70-110)
[2022-04-19] MEDS: carvediloL 12.5 MG TAB PO SCH ×2 (06:01→17:14)
[2022-04-19] MEDS: CALCIUM ACETATE 667 MG TAB PO SCH ×3 (06:01→17:14)
[2022-04-19] MEDS: INSULIN ASPART (NovoLOG) 100 UNIT/ML VIAL SQ SCH ×4 (06:01→21:14)
[2022-04-19] MEDS: INSULN ASP PRT/INSULIN ASPART 100 UNIT/ML 10 ML VIAL SQ SCH ×2 (06:07→17:14)
[2022-04-19 07:56] LABS: Basophils # (A) 0.1 k/uL (0-0.2); Basophils % (A) 1 %; Eosinophils # (A) 0.4 k/uL (0-0.7); Eosinophils % (A) 5 %; HCT 28.5 % (39.0-53.0); Hypochromasia Marked; Lymphocytes # (A) 0.7 k/uL (1.0-4.8); Lymphocytes % (A) 9 %; MCH 28.2 pg (25.0-35.0); MCHC 31.4 g/dL (31.0-37.0); MCV 89.7 fL (80.0-100.0); Mean Platelet Volume 7.3; Monocytes # (A) 0.5 k/uL (0-1.0); Monocytes % (A) 7 %; Neutrophils % (A) 78 %; Platelet Count 277 k/uL (150-450); RBC 3.18 m/uL (4.30-5.90); RDW 13.9 % (11.5-15.5); WBC 7.8 k/uL (3.8-10.6)
[2022-04-19 08:11] LABS: Albumin 3.6 g/dL (3.5-5.0); Potassium 4.1 mmol/L (3.5-5.1); Total Bilirubin 0.4 mg/dL (0.2-1.3); Total Protein 6.6 g/dL (6.3-8.2)
[2022-04-19] MEDS: IPRATROPIUM 0.5 MG/2.5 ML NEBU INHALATION SCH ×4 (09:31→20:38)
[2022-04-19] MEDS: SYMBICORT 160-4.5 MCG INHALER INHALATION SCH ×2 (09:31→20:38)
--- NOTE | 2022-04-19 10:19 | P.PN ---
Subjective Patient is seen in follow-up for acute kidney injury on chronic kidney disease. Started on hemodialysis 04/18/2022. No problems with dialysis yesterday. On IV Lasix. Nonoliguric. No vomiting or diarrhea. Vital signs are stable. General: Awake. No acute distress. HEENT: Head exam is unremarkable. LUNGS: Breath sounds decreased. HEART: Rate and Rhythm are regular. ABDOMEN: Soft, obese. EXTREMITITES: 2+ edema. Objective - Vital Signs Vital signs: Vital Signs Temp 98.2 F 04/19/22 08:00 Pulse 70 04/19/22 09:43 Resp 18 04/19/22 08:00 BP 151/67 04/19/22 08:00 Pulse Ox 96 04/19/22 08:00 FiO2 Intake & Output 04/18/22 04/19/22 04/19/22 18:59 06:59 18:59 Intake Total 480 500 0 Output Total 900 950 Balance -420 -450 0 Weight 98.4 kg Intake: Intake, IV Titration 100 Amount Sodium Ferric Gluconat- 100 Sucrose 125 mg In Sodium Chloride 0.9% 100 ml @ 100 mls/hr IVPB HS [facility] Rx #:[id number] Oral 480 400 0 Output: Urine 900 950 - Labs CBC & Chem 7: 04/19/22 07:10 04/19/22 07:10 Labs: Abnormal Lab Results - Last 24 Hours (Table) 04/18/22 04/18/22 04/19/22 Range/Units 16:18 19:39 05:55 RBC (4.30-5.90) m/uL Hgb (13.0-17.5) gm/dL Hct (39.0-53.0) % Lymphocytes # (1.0-4.8) k/uL BUN (9-20) mg/dL Creatinine (0.66-1.25) mg/dL Glucose (74-99) mg/dL POC Glucose (mg/dL) 203 H 229 H 171 H (70-110) mg/dL Calcium (8.4-10.2) mg/dL AST (17-59) U/L 04/19/22 04/19/22 Range/Units 07:10 07:10 RBC 3.18 L (4.30-5.90) m/uL Hgb 9.0 L (13.0-17.5) gm/dL Hct 28.5 L (39.0-53.0) % Lymphocytes # 0.7 L (1.0-4.8) k/uL BUN 58 H (9-20) mg/dL Creatinine 4.16 H (0.66-1.25) mg/dL Glucose 148 H (74-99) mg/dL POC Glucose (mg/dL) (70-110) mg/dL Calcium 7.0 L (8.4-10.2) mg/dL AST 15 L (17-59) U/L Assessment and Plan Plan: Assessment: 1. Acute kidney injury secondary to ATN secondary to cardiorenal syndrome. Sta rted on hemodialysis 04/18/2022. Tunneled femoral catheter placed 04/18/2022. 2. 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 Baseline creatinine near 4. 3. Volume overload. Improving with diuresis and ultrafiltration. 4. Diabetes mellitus. 5. Acute on chronic diastolic CHF with moderate MR. 6. Hypertension with chronic kidney disease. Partially volume sensitive. Stable. 7. Anemia of chronic kidney disease. Iron deficiency noted. 8. Hyperphosphatemia secondary to acute kidney injury. On PhosLo. Plan: Second treatment of hemodialysis today and third treatment tomorrow. Maintain Lasix 80 mg IV twice daily. Low-salt diet and 1500 mL fluid restriction. Maintain IV iron. Hold hydralazine for systolic blood pressure less than 120. Patient's AV fistula surgery had to be rescheduled twice outpatient. Stressed importance of getting this done as soon as possible. Outpatient dialysis to be set up by catalytic case operator.
--- NOTE | 2022-04-19 10:35 | P.PN ---
Subjective This is a 66 year old male with a past medical history of hypertension, dyslipidemia, chronic kidney disease, COPD, former nicotine dependence. We have been consulted to see the patient for congestive heart exacerbation. Patient follows with Dr. Saavedra in the office. Patient complains of shortness of breath and lower extremity edema. Found to be in acute kidney injury and congestive heart failure. Continues to be on IV Lasix, managed by nephrology. Echo revealed EF 55%, moderate mitral regurgitation. Patient started on hemodiaylsis yesterday 04/18. Patient seen and examined at bedside, no chest pain. Shortness of breath improved. Vital signs are stable and BP has improved. GENERAL: In no acute distress. NECK: Supple without JVD or thyromegaly. LUNGS: Breath sounds diminished bases to auscultation bilaterally. Respiration equal and unlabored. No wheezes, rales or rhonchi. HEART: Regular rate and rhythm with systolic murmur at apex, No rubs or gallops. S1 and S2 heard. EXTREMITIES: Normal range of motion, 1-2+ bilateral edema. No clubbing or cyanosis. Peripheral pulses intact. ASSESSMENT Acute on chronic heart failure with preserved ejection fraction 55% Acute on chronic kidney disease, started on hemodialysis 04/18/2022 Hypertension Dyslipidemia COPD Former tobacco use PLAN Continue carvedilol 12.5mg BID Continue statin, amlodipine, hydralazine Nephrology management IV Lasix and hemodialysis Monitor I/Os, daily weights, renal function and electrolytes No further changes from a cardiology perspective. Further recommendations based on clinical course Nurse Practitioner note has been reviewed, I agree with a documented findings and plan of care. Patient was seen and examined. Objective - Vital Signs Vital signs: Vital Signs Temp 98.1 F 04/19/22 03:44 Pulse 66 04/19/22 03:44 Resp 18 04/19/22 03:44 BP 133/54 04/19/22 03:44 Pulse Ox 95 04/19/22 03:44 FiO2 Intake & Output 04/18/22 04/19/22 04/19/22 18:59 06:59 18:59 Intake Total 480 500 0 Output Total 900 950 Balance -420 -450 0 Weight 98.4 kg Intake: Intake, IV Titration 100 Amount Sodium Ferric Gluconat- 100 Sucrose 125 mg In Sodium Chloride 0.9% 100 ml @ 100 mls/hr IVPB HS [facility] Rx #:[id number] Oral 480 400 0 Output: Urine 900 950 - Labs CBC & Chem 7: 04/19/22 07:10 04/19/22 07:10 Labs: Abnormal Lab Results - Last 24 Hours (Table) 04/18/22 04/18/22 04/19/22 Range/Units 16:18 19:39 05:55 RBC (4.30-5.90) m/uL Hgb (13.0-17.5) gm/dL Hct (39.0-53.0) % Lymphocytes # (1.0-4.8) k/uL BUN (9-20) mg/dL Creatinine (0.66-1.25) mg/dL Glucose (74-99) mg/dL POC Glucose (mg/dL) 203 H 229 H 171 H (70-110) mg/dL Calcium (8.4-10.2) mg/dL AST (17-59) U/L 04/19/22 04/19/22 Range/Units 07:10 07:10 RBC 3.18 L (4.30-5.90) m/uL Hgb 9.0 L (13.0-17.5) gm/dL Hct 28.5 L (39.0-53.0) % Lymphocytes # 0.7 L (1.0-4.8) k/uL BUN 58 H (9-20) mg/dL Creatinine 4.16 H (0.66-1.25) mg/dL Glucose 148 H (74-99) mg/dL POC Glucose (mg/dL) (70-110) mg/dL Calcium 7.0 L (8.4-10.2) mg/dL AST 15 L (17-59) U/L
[2022-04-19 11:36] LABS: Glucose,Whole Blood 177 mg/dL (70-110)
--- NOTE | 2022-04-19 12:17 | P.PN ---
Subjective Progress Note Date: 04/19/22 Patient is a 66-year-old male came in because of a competent of shortness of breath patient is found to have some pulmonary edema patient gained about 10 pounds patient does have edema in bilateral lower expertise as well. Patient had a normal ejection fraction. Patient denied any nausea vomiting patient and use of nonsteroidal anti-intermittent medications. Patient does have a history of long-standing diabetes with us and a chronic kidney disease stage IV with baseline serum creatinine of around 2.5 patient denied any fever chills chest x- ray showing pulmonary edema patient has highly elevated BNP of 14,000. Patient had a AV fistula procedure that was canceled twice in the past because of some issues at home. 04/17/2022 Patient is evaluated today resting in bed. He reports significant improvement in his symptoms, feels less short of breath today. He has diuresed about 1.3 L overnight. Blood glucose dropped into the 40s on his 70/30, afternoon dose has been decreased. Creatinine up to 4.80 today. Patient continues on IV lasix 80 mg BID and 1500 FR. Echocardiogram completed showing normal LV systolic dysfunction, mild to moderate mitral regurgitation. 90% room air. 04/18/22. Patient seen and examined. Patient continues to complain of swelling of lower extremities. Still gets short of breath on exertion. Nephrology recommended initiating patient on dialysis. Vascular surgery consulted for dialysis catheter placement. Probable first run OF Dialysis Today. 04/19/22. Patient seen and examined. Patient undergoing his second run of dialysis today. Denies any nausea or vomiting. Swelling of lower legs has improved Vital signs stable. Case discussed with nursing staff REVIEW OF SYSTEMS: CONSTITUTIONAL: No fever, no malaise, no fatigue. HEENT: No recent visual problems or hearing problems. Denied any sore throat. CARDIOVASCULAR: No chest pain, orthopnea PULMONARY: Complaining of shortness of breath. no cough, no hemoptysis. GASTROINTESTINAL: No diarrhea, no nausea, no vomiting, no abdominal pain. PHYSICAL EXAMINATION: GENERAL: The patient is alert and oriented x3, not in any acute distress. Well developed, well nourished. HEENT: Pupils are round and equally reacting to light. EOMI. No scleral icterus. No conjunctival pallor. Normocephalic, atraumatic. No pharyngeal erythema. No thyromegaly. CARDIOVASCULAR: S1 and S2 present. No murmurs, rubs, or gallops. PULMONARY: Chest is clear to auscultation, no wheezing or crackles. ABDOMEN: Soft, nontender, nondistended, normoactive bowel sounds. No palpable organomegaly. MUSCULOSKELETAL: No joint swelling or deformity. EXTREMITIES: 3+ pitting edema in lower extremities bilaterally NEUROLOGICAL: Gross neurological examination did not reveal any focal deficits. SKIN: No rashes. 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 Continue hydralazine to 100 mg 3 times daily. Hold for systolic blood pressure less than 120. Patient had dialysis catheter placed yesterday, continued dialysis per n ephrology Objective - Vital Signs Vital signs: Vital Signs Temp 98.2 F 04/19/22 08:00 Pulse 70 04/19/22 09:43 Resp 18 04/19/22 08:00 BP 151/67 04/19/22 08:00 Pulse Ox 96 04/19/22 08:00 FiO2 Intake & Output 04/18/22 04/19/22 04/19/22 18:59 06:59 18:59 Intake Total 480 500 0 Output Total 900 950 350 Balance -420 -450 -350 Weight 98.4 kg Intake: Intake, IV Titration 100 Amount Sodium Ferric Gluconat- 100 Sucrose 125 mg In Sodium Chloride 0.9% 100 ml @ 100 mls/hr IVPB HS [facility] Rx #:[id number] Oral 480 400 0 Output: Urine 900 950 350 - Labs CBC & Chem 7: 04/19/22 07:10 04/19/22 07:10 Labs: Abnormal Lab Results - Last 24 Hours (Table) 04/18/22 04/18/22 04/19/22 Range/Units 16:18 19:39 05:55 RBC (4.30-5.90) m/uL Hgb (13.0-17.5) gm/dL Hct (39.0-53.0) % Lymphocytes # (1.0-4.8) k/uL BUN (9-20) mg/dL Creatinine (0.66-1.25) mg/dL Glucose (74-99) mg/dL POC Glucose (mg/dL) 203 H 229 H 171 H (70-110) mg/dL Calcium (8.4-10.2) mg/dL AST (17-59) U/L 04/19/22 04/19/22 04/19/22 Range/Units 07:10 07:10 11:34 RBC 3.18 L (4.30-5.90) m/uL Hgb 9.0 L (13.0-17.5) gm/dL Hct 28.5 L (39.0-53.0) % Lymphocytes # 0.7 L (1.0-4.8) k/uL BUN 58 H (9-20) mg/dL Creatinine 4.16 H (0.66-1.25) mg/dL Glucose 148 H (74-99) mg/dL POC Glucose (mg/dL) 177 H (70-110) mg/dL Calcium 7.0 L (8.4-10.2) mg/dL AST 15 L (17-59) U/L
[2022-04-19] MEDS: FUROSEMIDE 10 MG/ML 10 ML VIAL IV SCH ×2 (14:42→21:10)
[2022-04-19] MEDS: HEPARIN SODIUM,PORCINE/PF 5,000 UNIT/0.5 ML SYRINGE SQ SCH ×3 (14:43→22:36)
[2022-04-19] MEDS: hydrALAZINE HCL 50 MG TAB PO SCH ×3 (14:43→21:13)
[2022-04-19] MEDS: cloNIDine HCL 0.2 MG TAB PO SCH ×2 (14:43→21:14)
[2022-04-19] MEDS: amLODIPine 10 MG TAB PO SCH (14:43)
[2022-04-19] MEDS: DORZOLAMIDE HCL 2% DROPS 10 ML BTL BOTH EYES SCH ×2 (14:44→21:13)
[2022-04-19 16:18] LABS: Glucose,Whole Blood 149 mg/dL (70-110)
[2022-04-19] MEDS: ONDANSETRON 4 MG/2 ML VIAL IVP PRN (18:30)
[2022-04-19 19:32] LABS: Glucose,Whole Blood 343 mg/dL (70-110)
[2022-04-19] MEDS: LATANOPROST 0.005% OPHTH DROPS 2.5 ML BTL BOTH EYES SCH (21:13)
[2022-04-19] MEDS: ATORVASTATIN 80 MG TAB PO SCH (21:14)
[2022-04-19] MEDS: SODIUM FERRIC GLUCONAT-SUCROSE 125 MG in SODIUM CHLORIDE 0.9% 100 ML IVPB SCH (22:36)
[2022-04-20 06:09] LABS: Glucose,Whole Blood 206 mg/dL (70-110)
[2022-04-20] MEDS: INSULIN ASPART (NovoLOG) 100 UNIT/ML VIAL SQ SCH ×4 (07:03→20:19)
[2022-04-20] MEDS: CALCIUM ACETATE 667 MG TAB PO SCH ×3 (07:04→16:54)
[2022-04-20] MEDS: carvediloL 12.5 MG TAB PO SCH ×2 (07:04→16:54)
[2022-04-20] MEDS: INSULN ASP PRT/INSULIN ASPART 100 UNIT/ML 10 ML VIAL SQ SCH ×2 (07:04→16:55)
[2022-04-20] MEDS: IPRATROPIUM 0.5 MG/2.5 ML NEBU INHALATION SCH ×4 (09:09→22:26)
[2022-04-20] MEDS: SYMBICORT 160-4.5 MCG INHALER INHALATION SCH ×2 (09:09→22:26)
[2022-04-20] MEDS: ONDANSETRON 4 MG/2 ML VIAL IVP PRN (09:10)
[2022-04-20 09:17] LABS: Albumin 3.3 g/dL (3.5-5.0); Calcium 7.1 mg/dL (8.4-10.2); Total Bilirubin 0.4 mg/dL (0.2-1.3); Total Protein 6.2 g/dL (6.3-8.2)
[2022-04-20 09:24] LABS: Basophils % (A) 1 %; Eosinophils # (A) 0.4 k/uL (0-0.7); Eosinophils % (A) 5 %; HCT 28.5 % (39.0-53.0); HGB 8.5 gm/dL (13.0-17.5); Hypochromasia Marked; Lymphocytes # (A) 0.8 k/uL (1.0-4.8); Lymphocytes % (A) 9 %; MCH 27.1 pg (25.0-35.0); MCHC 29.9 g/dL (31.0-37.0); MCV 90.8 fL (80.0-100.0); Mean Platelet Volume 8.1; Monocytes # (A) 0.5 k/uL (0-1.0); Monocytes % (A) 6 %; Neutrophils # (A) 6.2 k/uL (1.3-7.7); Neutrophils % (A) 77 %; Platelet Count 250 k/uL (150-450); RBC 3.14 m/uL (4.30-5.90); RDW 14.3 % (11.5-15.5)
[2022-04-20 09:35] VITALS: BMI 30.9
--- NOTE | 2022-04-20 10:31 | P.PN ---
Subjective Patient is seen in follow-up for acute kidney injury on chronic kidney disease. Started on hemodialysis 04/18/2022. No problems with dialysis yesterday. On IV Lasix. Edema improved. No vomiting or diarrhea. Vital signs are stable. General: Awake. No acute distress. HEENT: Head exam is unremarkable. LUNGS: Breath sounds decreased. HEART: Rate and Rhythm are regular. ABDOMEN: Soft, obese. EXTREMITITES: 1+ edema. Objective - Vital Signs Vital signs: Vital Signs Temp 98.7 F 04/20/22 08:00 Pulse 73 04/20/22 09:22 Resp 18 04/20/22 08:00 BP 140/60 04/20/22 08:00 Pulse Ox 92 L 04/20/22 08:00 FiO2 Intake & Output 04/19/22 04/20/22 04/20/22 18:59 06:59 18:59 Intake Total 240 240 Output Total 350 775 400 Balance -110 -535 -400 Weight 97.6 kg 97.6 kg Intake: Oral 240 240 Output: Gastric Drainage 0 Urine 350 775 400 Stool 0 0 Emesis 0 Oral Regurgitation 0 Other: # Voids 0 # Bowel Movements 0 - Labs CBC & Chem 7: 04/20/22 07:38 04/20/22 07:38 Labs: Abnormal Lab Results - Last 24 Hours (Table) 04/19/22 04/19/22 04/19/22 Range/Units 11:34 16:15 19:28 RBC (4.30-5.90) m/uL Hgb (13.0-17.5) gm/dL Hct (39.0-53.0) % MCHC (31.0-37.0) g/dL Lymphocytes # (1.0-4.8) k/uL BUN (9-20) mg/dL Creatinine (0.66-1.25) mg/dL Glucose (74-99) mg/dL POC Glucose (mg/dL) 177 H 149 H 343 H (70-110) mg/dL Calcium (8.4-10.2) mg/dL Total Protein (6.3-8.2) g/dL Albumin (3.5-5.0) g/dL 04/20/22 04/20/22 04/20/22 Range/Units 06:08 07:38 07:38 RBC 3.14 L (4.30-5.90) m/uL Hgb 8.5 L (13.0-17.5) gm/dL Hct 28.5 L (39.0-53.0) % MCHC 29.9 L (31.0-37.0) g/dL Lymphocytes # 0.8 L (1.0-4.8) k/uL BUN 43 H (9-20) mg/dL Creatinine 3.59 H (0.66-1.25) mg/dL Glucose 212 H (74-99) mg/dL POC Glucose (mg/dL) 206 H (70-110) mg/dL Calcium 7.1 L (8.4-10.2) mg/dL Total Protein 6.2 L (6.3-8.2) g/dL Albumin 3.3 L (3.5-5.0) g/dL Assessment and Plan Plan: Assessment: 1. Acute kidney injury secondary to ATN secondary to cardiorenal syndrome. Started on hemodialysis 04/18/2022. Tunneled femoral catheter placed 04/18/2022. 2. 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 Baseline creatinine near 4. 3. Volume overload. Improving with diuresis and ultrafiltration. 4. Diabetes mellitus. 5. Acute on chronic diastolic CHF with moderate MR. 6. Hypertension with chronic kidney disease. Partially volume sensitive. Stable. 7. Anemia of chronic kidney disease. Iron deficiency noted. 8. Hyperphosphatemia secondary to acute kidney injury. On PhosLo. Plan: Hemodialysis today. Next treatment on Monday. Plan for discharge after dialysis on Monday and patient will start outpatient dialysis on a Monday schedule next week. Change IV Lasix to oral torsemide. Low-salt diet and 1500 mL fluid restriction. Maintain IV iron. Hold hydralazine for systolic blood pressure less than 120. Patient's AV fistula surgery had to be rescheduled twice outpatient. Stressed importance of getting this done as soon as possible. Add Aranesp.
--- NOTE | 2022-04-20 11:00 | P.PN ---
Subjective This is a 66 year old male with a past medical history of hypertension, dyslipidemia, chronic kidney disease, COPD, former nicotine dependence. We have been consulted to see the patient for congestive heart exacerbation. Patient follows with Dr. Saavedra in the office. Patient complains of shortness of breath and lower extremity edema. Found to be in acute kidney injury and congestive heart failure. Transitioned to Torsemide managed by nephrology. Echo revealed EF 55%, moderate mitral regurgitation. Patient started on hemodiaylsis 04/18. Patient seen and examined at bedside, no chest pain. Shortness of breath improved. Vital signs are stable and BP has improved. Blood pressure 140/60, heart rate 78. GENERAL: In no acute distress. NECK: Supple without JVD or thyromegaly. LUNGS: Breath sounds diminished bases to auscultation bilaterally. Respiration equal and unlabored. No wheezes, rales or rhonchi. HEART: Regular rate and rhythm with systolic murmur at apex, No rubs or gallops. S1 and S2 heard. EXTREMITIES: Normal range of motion, 1+ bilateral edema. No clubbing or cyanosis. Peripheral pulses intact. ASSESSMENT Acute on chronic heart failure with preserved ejection fraction 55% Acute on chronic kidney disease, started on hemodialysis 04/18/2022 Hypertension Dyslipidemia COPD Former tobacco use PLAN Continue carvedilol 12.5mg BID, if needed coreg can be increased Continue statin, amlodipine, hydralazine Nephrology management IV Lasix and hemodialysis Monitor I/Os, daily weights, renal function and electrolytes No further changes from a cardiology perspective. We will follow the patient as needed. Please re-consult if needed. Follow up outpatient to Dr. Saavedra Nurse Practitioner note has been reviewed, I agree with a documented findings and plan of care. Patient was seen and examined. Objective - Vital Signs Vital signs: Vital Signs Temp 98.7 F 04/20/22 08:00 Pulse 73 04/20/22 09:22 Resp 18 04/20/22 08:00 BP 140/60 04/20/22 08:00 Pulse Ox 92 L 04/20/22 08:00 FiO2 Intake & Output 04/19/22 04/20/22 04/20/22 18:59 06:59 18:59 Intake Total 240 240 Output Total 350 775 400 Balance -110 -535 -400 Weight 97.6 kg 97.6 kg Intake: Oral 240 240 Output: Gastric Drainage 0 Urine 350 775 400 Stool 0 0 Emesis 0 Oral Regurgitation 0 Other: # Voids 0 # Bowel Movements 0 - Labs CBC & Chem 7: 04/20/22 07:38 04/20/22 07:38 Labs: Abnormal Lab Results - Last 24 Hours (Table) 04/19/22 04/19/22 04/19/22 Range/Units 11:34 16:15 19:28 RBC (4.30-5.90) m/uL Hgb (13.0-17.5) gm/dL Hct (39.0-53.0) % MCHC (31.0-37.0) g/dL Lymphocytes # (1.0-4.8) k/uL BUN (9-20) mg/dL Creatinine (0.66-1.25) mg/dL Glucose (74-99) mg/dL POC Glucose (mg/dL) 177 H 149 H 343 H (70-110) mg/dL Calcium (8.4-10.2) mg/dL Total Protein (6.3-8.2) g/dL Albumin (3.5-5.0) g/dL 04/20/22 04/20/22 04/20/22 Range/Units 06:08 07:38 07:38 RBC 3.14 L (4.30-5.90) m/uL Hgb 8.5 L (13.0-17.5) gm/dL Hct 28.5 L (39.0-53.0) % MCHC 29.9 L (31.0-37.0) g/dL Lymphocytes # 0.8 L (1.0-4.8) k/uL BUN 43 H (9-20) mg/dL Creatinine 3.59 H (0.66-1.25) mg/dL Glucose 212 H (74-99) mg/dL POC Glucose (mg/dL) 206 H (70-110) mg/dL Calcium 7.1 L (8.4-10.2) mg/dL Total Protein 6.2 L (6.3-8.2) g/dL Albumin 3.3 L (3.5-5.0) g/dL
[2022-04-20 11:56] LABS: Glucose,Whole Blood 197 mg/dL (70-110)
--- NOTE | 2022-04-20 12:38 | CDI ---
Documentation Clarification Form Date: 04/20/2022 11:34:02 AM From: [place] Love RN, CCDS Admit Date: 04/15/2022 08:16:00 PM Patient Name: Julio César Panchal Visit Number: [id number] Discharge Date: ATTENTION: The Clinical Documentation Specialists (CDI) and [facility] Coding Staff appreciate your assistance in clarifying documentation. Please respond to the clarification below the line at the bottom and electronically sign. The CDI & [facility] Coding staff will review the response and follow-up if needed. Please note: Queries are made part of the Legal Health Record. If you have any questions, please contact the author of this message via ITS. Dr. Brad Cervantes CKD Stage IV to V is documented in the consult and subsequent progress notes. We are unable to pick from the range provide and ask for the most appropriate response. Additional clarification regarding the stage of CKD is requested. History/Risk Factors: COPD, Diabetes Mellitus, Hypertension, Renal Disease 04/15 BUN 62, Creatinine 4.35 GFR 13 04/16 BUN 66, Creatinine 4.46 GFR 12 04/19 BUN 58, Creatinine 4.15 GFR 14 Clinical Indicators: 66-year-old male in with acute kidney injury on chronic kidney disease baseline creatine near 4 secondary to diabetic kidney disease. Treatment: Right IJ catheter Hemodialysis (per Nephrology orders) Lasix 80 MG IV BID, Ferric Sodium Gluconate 125 MG x 3 bags Aranesp 40 MCQ SQ Q 7 D, Hydralazine Hcl 100 mg PO TID (hold for bb less than 120) Low-Salt diet and 1500 ml fluid restriction Please clarify the most appropriate response for stage of the CKD, if known: [ ] CKD Stage 4 (GFR 15-29) [ ] CKD Stage 5 (GFR <15) [ ] ESRD [ ] Other, please specify [ ] Unable to determine (Template last revised: June 2020) CKD-5 on admission, now ESRD MTDD
--- NOTE | 2022-04-20 12:42 | P.PN ---
Subjective Progress Note Date: 04/20/22 Patient is a 66-year-old male came in because of a competent of shortness of breath patient is found to have some pulmonary edema patient gained about 10 pounds patient does have edema in bilateral lower expertise as well. Patient had a normal ejection fraction. Patient denied any nausea vomiting patient and use of nonsteroidal anti-intermittent medications. Patient does have a history of long-standing diabetes with us and a chronic kidney disease stage IV with baseline serum creatinine of around 2.5 patient denied any fever chills chest x- ray showing pulmonary edema patient has highly elevated BNP of 14,000. Patient had a AV fistula procedure that was canceled twice in the past because of some issues at home. 04/17/2022 Patient is evaluated today resting in bed. He reports significant improvement in his symptoms, feels less short of breath today. He has diuresed about 1.3 L overnight. Blood glucose dropped into the 40s on his 70/30, afternoon dose has been decreased. Creatinine up to 4.80 today. Patient continues on IV lasix 80 mg BID and 1500 FR. Echocardiogram completed showing normal LV systolic dysfunction, mild to moderate mitral regurgitation. 90% room air. 04/18/22. Patient seen and examined. Patient continues to complain of swelling of lower extremities. Still gets short of breath on exertion. Nephrology recommended initiating patient on dialysis. Vascular surgery consulted for dialysis catheter placement. Probable first run OF Dialysis Today. 04/19/22. Patient seen and examined. Patient undergoing his second run of dialysis today. Denies any nausea or vomiting. Swelling of lower legs has improved Vital signs stable. Case discussed with nursing staff 04/20. Patient seen and examined. Patient currently undergoing dialysis. Case management working on outpatient dialysis setup. Plan is for patient to get dialysis on Monday and then to be discharged afterwards. Swelling of legs is improved. Shortness of breath also improved REVIEW OF SYSTEMS: CONSTITUTIONAL: No fever, no malaise, no fatigue. HEENT: No recent visual problems or hearing problems. Denied any sore throat. CARDIOVASCULAR: No chest pain, orthopnea PULMONARY: no cough, no hemoptysis. GASTROINTESTINAL: No diarrhea, no nausea, no vomiting, no abdominal pain. PHYSICAL EXAMINATION: GENERAL: The patient is alert and oriented x3, not in any acute distress. Well developed, well nourished. HEENT: Pupils are round and equally reacting to light. EOMI. No scleral icterus. No conjunctival pallor. Normocephalic, atraumatic. No pharyngeal erythema. No thyromegaly. CARDIOVASCULAR: S1 and S2 present. No murmurs, rubs, or gallops. PULMONARY: Chest is clear to auscultation, no wheezing or crackles. ABDOMEN: Soft, nontender, nondistended, normoactive bowel sounds. No palpable organomegaly. MUSCULOSKELETAL: No joint swelling or deformity. EXTREMITIES: 3+ pitting edema in lower extremities bilaterally NEUROLOGICAL: Gross neurological examination did not reveal any focal deficits. SKIN: No rashes. 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 Continue hydralazine to 100 mg 3 times daily. Hold for systolic blood pressure less than 120. Case management working on outpatient dialysis setup. Nephrology plan to do dialysis on Monday and then patient can be discharged afterwards. Objective - Vital Signs Vital signs: Vital Signs Temp 97.7 F 04/20/22 11:49 Pulse 68 04/20/22 11:49 Resp 16 04/20/22 11:49 BP 142/69 04/20/22 11:49 Pulse Ox 97 04/20/22 11:49 FiO2 Intake & Output 04/19/22 04/20/22 04/20/22 18:59 06:59 18:59 Intake Total 240 240 Output Total 350 775 400 Balance -110 -535 -400 Weight 97.6 kg 97.6 kg Intake: Oral 240 240 Output: Gastric Drainage 0 Urine 350 775 400 Stool 0 0 Emesis 0 Oral Regurgitation 0 Other: # Voids 0 # Bowel Movements 0 - Labs CBC & Chem 7: 04/20/22 07:38 04/20/22 07:38 Labs: Abnormal Lab Results - Last 24 Hours (Table) 04/19/22 04/19/22 04/20/22 Range/Units 16:15 19:28 06:08 RBC (4.30-5.90) m/uL Hgb (13.0-17.5) gm/dL Hct (39.0-53.0) % MCHC (31.0-37.0) g/dL Lymphocytes # (1.0-4.8) k/uL BUN (9-20) mg/dL Creatinine (0.66-1.25) mg/dL Glucose (74-99) mg/dL POC Glucose (mg/dL) 149 H 343 H 206 H (70-110) mg/dL Calcium (8.4-10.2) mg/dL Total Protein (6.3-8.2) g/dL Albumin (3.5-5.0) g/dL 04/20/22 04/20/22 04/20/22 Range/Units 07:38 07:38 11:51 RBC 3.14 L (4.30-5.90) m/uL Hgb 8.5 L (13.0-17.5) gm/dL Hct 28.5 L (39.0-53.0) % MCHC 29.9 L (31.0-37.0) g/dL Lymphocytes # 0.8 L (1.0-4.8) k/uL BUN 43 H (9-20) mg/dL Creatinine 3.59 H (0.66-1.25) mg/dL Glucose 212 H (74-99) mg/dL POC Glucose (mg/dL) 197 H (70-110) mg/dL Calcium 7.1 L (8.4-10.2) mg/dL Total Protein 6.2 L (6.3-8.2) g/dL Albumin 3.3 L (3.5-5.0) g/dL
[2022-04-20] MEDS ORDERED: DARBEPOETIN ALFA 40 MCG/0.4 ML SYRINGE SQ SCH (13:00)
[2022-04-20] MEDS: FUROSEMIDE 10 MG/ML 10 ML VIAL IV SCH (13:39)
[2022-04-20] MEDS: HEPARIN SODIUM,PORCINE/PF 5,000 UNIT/0.5 ML SYRINGE SQ SCH ×3 (13:45→21:57)
[2022-04-20] MEDS: amLODIPine 10 MG TAB PO SCH (13:46)
[2022-04-20] MEDS: hydrALAZINE HCL 50 MG TAB PO SCH ×3 (13:46→20:03)
[2022-04-20] MEDS: cloNIDine HCL 0.2 MG TAB PO SCH ×2 (13:49→20:03)
[2022-04-20] MEDS: TORSEMIDE 20 MG TAB PO SCH (13:50)
[2022-04-20] MEDS: DORZOLAMIDE HCL 2% DROPS 10 ML BTL BOTH EYES SCH ×2 (13:53→20:04)
[2022-04-20 16:38] LABS: Glucose,Whole Blood 151 mg/dL (70-110)
[2022-04-20] MEDS: ATORVASTATIN 80 MG TAB PO SCH (20:03)
[2022-04-20] MEDS: LATANOPROST 0.005% OPHTH DROPS 2.5 ML BTL BOTH EYES SCH (20:04)
[2022-04-20 20:07] LABS: Glucose,Whole Blood 188 mg/dL (70-110)
[2022-04-20] MEDS: SODIUM FERRIC GLUCONAT-SUCROSE 125 MG in SODIUM CHLORIDE 0.9% 100 ML IVPB SCH (20:19)
[2022-04-21 06:07] LABS: Glucose,Whole Blood 258 mg/dL (70-110)
[2022-04-21] MEDS: carvediloL 12.5 MG TAB PO SCH ×2 (06:48→16:55)
[2022-04-21] MEDS: CALCIUM ACETATE 667 MG TAB PO SCH ×3 (06:49→16:55)
[2022-04-21] MEDS: INSULIN ASPART (NovoLOG) 100 UNIT/ML VIAL SQ SCH ×4 (06:49→20:05)
[2022-04-21] MEDS: INSULN ASP PRT/INSULIN ASPART 100 UNIT/ML 10 ML VIAL SQ SCH ×2 (07:06→16:55)
[2022-04-21] MEDS: TORSEMIDE 20 MG TAB PO SCH (08:25)
[2022-04-21] MEDS: amLODIPine 10 MG TAB PO SCH (08:25)
[2022-04-21] MEDS: cloNIDine HCL 0.2 MG TAB PO SCH ×2 (08:25→20:06)
[2022-04-21] MEDS: HEPARIN SODIUM,PORCINE/PF 5,000 UNIT/0.5 ML SYRINGE SQ SCH ×3 (08:25→20:06)
[2022-04-21] MEDS: hydrALAZINE HCL 50 MG TAB PO SCH ×3 (08:25→20:06)
[2022-04-21] MEDS: DORZOLAMIDE HCL 2% DROPS 10 ML BTL BOTH EYES SCH ×2 (08:26→20:06)
[2022-04-21] MEDS: IPRATROPIUM 0.5 MG/2.5 ML NEBU INHALATION SCH ×4 (09:32→21:05)
[2022-04-21] MEDS: SYMBICORT 160-4.5 MCG INHALER INHALATION SCH ×2 (09:32→21:05)
--- NOTE | 2022-04-21 09:57 | P.PN ---
Subjective Patient is seen in follow-up for acute kidney injury on chronic kidney disease. Started on hemodialysis 04/18/2022. No problems with dialysis yesterday. On po torsemide. Edema improved. No vomiting or diarrhea. Vital signs are stable. General: Awake. No acute distress. HEENT: Head exam is unremarkable. LUNGS: Breath sounds decreased. HEART: Rate and Rhythm are regular. ABDOMEN: Soft, obese. EXTREMITITES: 1+ edema. Objective - Vital Signs Vital signs: Vital Signs Temp 98.3 F 04/21/22 04:00 Pulse 82 04/21/22 09:44 Resp 16 04/21/22 04:00 BP 140/64 04/21/22 04:00 Pulse Ox 97 04/21/22 04:00 FiO2 Intake & Output 04/20/22 04/21/22 04/21/22 18:59 06:59 18:59 Intake Total 240 Output Total 2625 250 Balance -2625 -250 240 Weight 97.6 kg 96.5 kg Intake: Oral 240 Output: Urine 625 250 Stool 0 Hemodialysis 2000 Other: # Voids 1 # Bowel Movements 0 - Labs CBC & Chem 7: 04/20/22 07:38 04/20/22 07:38 Labs: Abnormal Lab Results - Last 24 Hours (Table) 04/20/22 04/20/22 04/20/22 Range/Units 11:51 16:36 20:05 POC Glucose (mg/dL) 197 H 151 H 188 H (70-110) mg/dL 04/21/22 Range/Units 06:06 POC Glucose (mg/dL) 258 H (70-110) mg/dL Assessment and Plan Plan: Assessment: 1. Acute kidney injury secondary to ATN secondary to cardiorenal syndrome. Started on hemodialysis 04/18/2022. Tunneled femoral catheter placed 022. 2. 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 Baseline creatinine near 4. 3. Volume overload. Improved with diuresis and ultrafiltration. 4. Diabetes mellitus. 5. Acute on chronic diastolic CHF with moderate MR. 6. Hypertension with chronic kidney disease. Partially volume sensitive. Stable. 7. Anemia of chronic kidney disease. Iron deficiency noted. Status post IV iron. On Aranesp. 8. Hyperphosphatemia secondary to acute kidney injury. On PhosLo. Plan: Hemodialysis tomorrow. Plan for discharge after dialysis on Monday and patient will start outpatient dialysis on a Monday schedule next week. Maintain oral torsemide. Low-salt diet and 1500 mL fluid restriction. Hold hydralazine for systolic blood pressure less than 120. Patient's AV fistula surgery had to be rescheduled twice outpatient. Stressed importance of getting this done as soon as possible. PD also discussed and will be further discussed in more detail outpatient.
--- NOTE | 2022-04-21 11:22 | P.PN ---
Subjective Progress Note Date: 04/21/22 Patient is a 66-year-old male came in because of a competent of shortness of breath patient is found to have some pulmonary edema patient gained about 10 pounds patient does have edema in bilateral lower expertise as well. Patient had a normal ejection fraction. Patient denied any nausea vomiting patient and use of nonsteroidal anti-intermittent medications. Patient does have a history of long-standing diabetes with us and a chronic kidney disease stage IV with baseline serum creatinine of around 2.5 patient denied any fever chills chest x- ray showing pulmonary edema patient has highly elevated BNP of 14,000. Patient had a AV fistula procedure that was canceled twice in the past because of some issues at home. 04/17/2022 Patient is evaluated today resting in bed. He reports significant improvement in his symptoms, feels less short of breath today. He has diuresed about 1.3 L overnight. Blood glucose dropped into the 40s on his 70/30, afternoon dose has been decreased. Creatinine up to 4.80 today. Patient continues on IV lasix 80 mg BID and 1500 FR. Echocardiogram completed showing normal LV systolic dysfunction, mild to moderate mitral regurgitation. 90% room air. 04/18/22. Patient seen and examined. Patient continues to complain of swelling of lower extremities. Still gets short of breath on exertion. Nephrology recommended initiating patient on dialysis. Vascular surgery consulted for dialysis catheter placement. Probable first run OF Dialysis Today. 04/19/22. Patient seen and examined. Patient undergoing his second run of dialysis today. Denies any nausea or vomiting. Swelling of lower legs has improved Vital signs stable. Case discussed with nursing staff 04/20. Patient seen and examined. Patient currently undergoing dialysis. Case management working on outpatient dialysis setup. Plan is for patient to get dialysis on Monday and then to be discharged afterwards. Swelling of legs is improved. Shortness of breath also improved 04/17/22. Patient seen and examined. Laying comfortably in the bed. Swelling of legs is improved. Vital signs stable REVIEW OF SYSTEMS: CONSTITUTIONAL: No fever, no malaise, no fatigue. HEENT: No recent visual problems or hearing problems. Denied any sore throat. CARDIOVASCULAR: No chest pain, orthopnea PULMONARY: no cough, GASTROINTESTINAL: No diarrhea, no abdominal pain. PHYSICAL EXAMINATION: GENERAL: The patient is alert and oriented x3, not in any acute distress. Well developed, well nourished. HEENT: Pupils are round and equally reacting to light. EOMI. No scleral icterus. No conjunctival pallor. Normocephalic, atraumatic. No pharyngeal erythema. No thyromegaly. CARDIOVASCULAR: S1 and S2 present. No murmurs, rubs, or gallops. PULMONARY: Chest is clear to auscultation, no wheezing or crackles. ABDOMEN: Soft, nontender, nondistended, normoactive bowel sounds. No palpable organomegaly. MUSCULOSKELETAL: No joint swelling or deformity. EXTREMITIES: 1+ pitting edema in lower extremities bilaterally NEUROLOGICAL: Gross neurological examination did not reveal any focal deficits. SKIN: No rashes. 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 Continue hydralazine to 100 mg 3 times daily. Hold for systolic blood pressure less than 120. Case management working on outpatient dialysis setup. Nephrology plan to do dialysis on Monday and then patient can be discharged afterwards. Objective - Vital Signs Vital signs: Vital Signs Temp 98.3 F 04/21/22 04:00 Pulse 82 04/21/22 09:44 Resp 18 04/21/22 08:00 BP 140/64 04/21/22 04:00 Pulse Ox 97 04/21/22 04:00 FiO2 Intake & Output 04/20/22 04/21/22 04/21/22 18:59 06:59 18:59 Intake Total 240 Output Total 2625 250 351 Balance -2625 -250 -111 Weight 97.6 kg 96.5 kg Intake: Oral 240 Output: Urine 625 250 351 Stool 0 Hemodialysis 2000 Other: # Voids 1 # Bowel Movements 0 - Labs CBC & Chem 7: 04/20/22 07:38 04/20/22 07:38 Labs: Abnormal Lab Results - Last 24 Hours (Table) 04/20/22 04/20/22 04/20/22 Range/Units 11:51 16:36 20:05 POC Glucose (mg/dL) 197 H 151 H 188 H (70-110) mg/dL 04/21/22 Range/Units 06:06 POC Glucose (mg/dL) 258 H (70-110) mg/dL
[2022-04-21 11:48] LABS: Glucose,Whole Blood 174 mg/dL (70-110)
[2022-04-21 16:51] LABS: Glucose,Whole Blood 241 mg/dL (70-110)
[2022-04-21 19:56] LABS: Glucose,Whole Blood 177 mg/dL (70-110)
[2022-04-21] MEDS: ATORVASTATIN 80 MG TAB PO SCH (20:06)
[2022-04-21] MEDS: LATANOPROST 0.005% OPHTH DROPS 2.5 ML BTL BOTH EYES SCH (20:07)
[2022-04-21] MEDS: ONDANSETRON 4 MG/2 ML VIAL IVP PRN (22:47)
[2022-04-22 06:49] LABS: Glucose,Whole Blood 151 mg/dL (70-110)
[2022-04-22] MEDS: CALCIUM ACETATE 667 MG TAB PO SCH ×2 (06:51→12:17)
[2022-04-22] MEDS: INSULIN ASPART (NovoLOG) 100 UNIT/ML VIAL SQ SCH ×2 (06:52→12:18)
[2022-04-22] MEDS: INSULN ASP PRT/INSULIN ASPART 100 UNIT/ML 10 ML VIAL SQ SCH (06:54)
[2022-04-22] MEDS: carvediloL 12.5 MG TAB PO SCH (06:54)
[2022-04-22] MEDS: HEPARIN SODIUM,PORCINE/PF 5,000 UNIT/0.5 ML SYRINGE SQ SCH (08:57)
[2022-04-22] MEDS: hydrALAZINE HCL 50 MG TAB PO SCH (08:58)
[2022-04-22] MEDS: SYMBICORT 160-4.5 MCG INHALER INHALATION SCH (09:28)
[2022-04-22] MEDS: IPRATROPIUM 0.5 MG/2.5 ML NEBU INHALATION SCH ×2 (09:28→12:56)
--- NOTE | 2022-04-22 10:52 | P.PN ---
Subjective Patient is seen in follow-up for acute kidney injury on chronic kidney disease. Started on hemodialysis 04/18/2022. Tolerating dialysis well. On po torsemide. Edema improved. No vomiting or diarrhea. Hemodynamically stable. Plan for discharge home today. Vital signs are stable. General: Awake. No acute distress. HEENT: Head exam is unremarkable. LUNGS: Breath sounds decreased. HEART: Rate and Rhythm are regular. ABDOMEN: Soft, obese. EXTREMITITES: Trace edema. Objective - Vital Signs Vital signs: Vital Signs Temp 98.5 F 04/22/22 08:00 Pulse 64 04/22/22 09:36 Resp 20 04/22/22 08:00 BP 138/62 04/22/22 08:00 Pulse Ox 94 L 04/22/22 08:00 FiO2 Intake & Output 04/21/22 04/22/22 04/22/22 18:59 06:59 18:59 Intake Total 960 240 Output Total 576 300 Balance 384 -60 Weight 97.8 kg Intake: Oral 960 240 Output: Urine 576 300 Stool 0 0 Other: # Voids 1 # Bowel Movements 0 - Labs CBC & Chem 7: 04/20/22 07:38 04/20/22 07:38 Labs: Abnormal Lab Results - Last 24 Hours (Table) 04/21/22 04/21/22 04/21/22 Range/Units 11:30 16:37 19:55 POC Glucose (mg/dL) 174 H 241 H 177 H (70-110) mg/dL 04/22/22 Range/Units 06:48 POC Glucose (mg/dL) 151 H (70-110) mg/dL Assessment and Plan Plan: Assessment: 1. Acute kidney injury secondary to ATN secondary to cardiorenal syndrome. Started on hemodialysis 04/18/2022. Tunneled femoral catheter placed 04/18/2022. 2. 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 Baseline creatinine near 4. 3. Volume overload. Improved with diuresis and ultrafiltration. 4. Diabetes mellitus. 5. Acute on chronic diastolic CHF with moderate MR. 6. Hypertension with chronic kidney disease. Partially volume sensitive. Stable. 7. Anemia of chronic kidney disease. Iron deficiency noted. Status post IV iron. On Aranesp. 8. Hyperphosphatemia secondary to acute kidney injury. On PhosLo. Plan: Currently seen while undergoing hemodialysis. Plan for discharge after dialysis today and patient will start outpatient dialysis on a Monday schedule next week. Maintain oral torsemide. Low-salt diet and 1500 mL fluid restriction. Hold hydralazine for systolic blood pressure less than 120. Patient's AV fistula surgery had to be rescheduled twice outpatient. Stressed importance of getting this done as soon as possible. PD also discussed and will be further discussed in more detail outpatient.
[2022-04-22 11:54] LABS: Glucose,Whole Blood 114 mg/dL (70-110)
--- NOTE | 2022-04-22 12:05 | P.DS ---
Providers Date of admission: 04/15/22 20:16 Expected date of discharge: 04/22/22 Attending physician: Rafi Wayne MD Consults: 04/15/22 20:16 Consult Physician Urgent Consulting Provider: Wander Saavedra Consult Reason/Comments: CHF exacerbation Do you want consulting provider notified?: Yes, Notify in am Consult Physician Urgent Consulting Provider: Brad Cervantes Consult Reason/Comments: End stage renal failure Do you want consulting provider notified?: Yes, Notify in am 04/18/22 08:53 Consult Physician Urgent Consulting Provider: Dillan Walter Consult Reason/Comments: urgent permanent dialysis catheter Do you want consulting provider notified?: Yes Primary care physician: Tanna Guillory Hospital Course: Discharge diagnoses; -Acute kidney injury believed to be secondary to acute tubular necrosis which is again secondary to cardiorenal syndrome -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 Patient had a normal ejection fraction. Patient denied any nausea vomiting patient and use of nonsteroidal anti-intermittent medications. Patient does have a history of long-standing diabetes with us and a chronic kidney disease stage IV with baseline serum creatinine of around 2.5 patient denied any fever chills chest x- ray showing pulmonary edema patient has highly elevated BNP of 14,000. Patient had a AV fistula procedure that was canceled twice in the past because of some issues at home. 04/17/2022 Patient is evaluated today resting in bed. He reports significant improvement in his symptoms, feels less short of breath today. He has diuresed about 1.3 L overnight. Blood glucose dropped into the 40s on his 70/30, afternoon dose has been decreased. Creatinine up to 4.80 today. Patient continues on IV lasix 80 mg BID and 1500 FR. Echocardiogram completed showing normal LV systolic dysfunction, mild to moderate mitral regurgitation. 90% room air. 04/18/22. Patient seen and examined. Patient continues to complain of swelling of lower extremities. Still gets short of breath on exertion. Nephrology recommended initiating patient on dialysis. Vascular surgery consulted for dialysis catheter placement. Probable first run OF Dialysis Today. 04/19/22. Patient seen and examined. Patient undergoing his second run of dial ysis today. Denies any nausea or vomiting. Swelling of lower legs has improved Vital signs stable. Case discussed with nursing staff 04/20. Patient seen and examined. Patient currently undergoing dialysis. Case management working on outpatient dialysis setup. Plan is for patient to get dialysis on Monday and then to be discharged afterwards. Swelling of legs is improved. Shortness of breath also improved 04/21/22. Patient seen and examined. Laying comfortably in the bed. Swelling of legs is improved. Vital signs stable 04/22. Patient underwent dialysis this morning. Nephrology has cleared the patient for discharge. Outpatient dialysis setup has been achieved PHYSICAL EXAMINATION: GENERAL: The patient is alert and oriented x3, not in any acute distress. Well developed, well nourished. HEENT: Pupils are round and equally reacting to light. EOMI. No scleral icterus. No conjunctival pallor. Normocephalic, atraumatic. No pharyngeal erythema. No thyromegaly. CARDIOVASCULAR: S1 and S2 present. No murmurs, rubs, or gallops. PULMONARY: Chest is clear to auscultation, no wheezing or crackles. ABDOMEN: Soft, nontender, nondistended, normoactive bowel sounds. No palpable organomegaly. MUSCULOSKELETAL: No joint swelling or deformity. EXTREMITIES: 1+ pitting edema lower extremities bilaterally NEUROLOGICAL: Gross neurological examination did not reveal any focal deficits. SKIN: No rashes. Plan - Discharge Summary Discharge Rx Participant: Yes New Discharge Prescriptions: New carvediloL [Coreg*] 12.5 mg PO BID-W/MEALS #30 tab Torsemide [Demadex] 40 mg PO DAILY #30 tab Calcium Acetate [PhosLo] 667 mg PO TID-W/MEALS #90 tab Continue Tiotropium [place] [Spiriva Respimat] 2 puff INHALATION RT-DAILY Budesonide-Formot 160-4.5 Mcg [Symbicort 160-4.5 Mcg Inhaler] 2 puff INHALATION RT-BID amLODIPine BESYLATE 10 mg PO DAILY calcitrioL [Calcitriol] 0.25 mcg PO DAILY Latanoprost/Pf [Latanoprost 0.005% Eye Drop] 1 drop BOTH EYES HS hydrALAZINE HCL [Apresoline] 100 mg PO BID Insulin Aspart Prot/Insuln Asp [Novolog Mix 70-30 Flexpen] 60 unit SQ AC-BID cloNIDine HCL [Catapres] 0.2 mg PO BID Dorzolamide 2% [Trusopt 2%] 1 drops BOTH EYES BID Atorvastatin Calcium [Lipitor] 80 mg PO HS Discontinued hydroCHLOROthiazide 25 mg PO DAILY Losartan [Cozaar] 50 mg PO DAILY carvediloL [Coreg] 6.25 mg PO BID Discharge Medication List Budesonide-Formot 160-4.5 Mcg [Symbicort 160-4.5 Mcg Inhaler] 2 puff INHALATION RT-BID 11/03/14 [History] Tiotropium [place] [Spiriva Respimat] 2 puff INHALATION RT-DAILY 11/03/14 [History] amLODIPine BESYLATE 10 mg PO DAILY 04/11/18 [History] Latanoprost/Pf [Latanoprost 0.005% Eye Drop] 1 drop BOTH EYES HS 05/23/19 [History] calcitrioL [Calcitriol] 0.25 mcg PO DAILY 05/23/19 [History] Atorvastatin Calcium [Lipitor] 80 mg PO HS 04/15/22 [History] Dorzolamide 2% [Trusopt 2%] 1 drops BOTH EYES BID 04/15/22 [History] Insulin Aspart Prot/Insuln Asp [Novolog Mix 70-30 Flexpen] 60 unit SQ AC-BID 04/15/22 [History] cloNIDine HCL [Catapres] 0.2 mg PO BID 04/15/22 [History] hydrALAZINE HCL [Apresoline] 100 mg PO BID 04/15/22 [History] Calcium Acetate [PhosLo] 667 mg PO TID-W/MEALS #90 tab 04/22/22 [Rx] Torsemide [Demadex] 40 mg PO DAILY #30 tab 04/22/22 [Rx] carvediloL [Coreg*] 12.5 mg PO BID-W/MEALS #30 tab 04/22/22 [Rx] Follow up Appointment(s)/Referral(s): Pastora Cisse MD [Primary Care Provider] - 1-2 days Wander Saavedra MD [STAFF PHYSICIAN] - 1 Week Activity/Diet/Wound Care/Special Instructions: Hemodialysis at [place] [facility] ([address], [place] [address] ) on Monday, , Monday @11:30 a.m. First treatment date is Monday04/26/22 @11:00 a.m. Transportation to and from dialysis through [employer] [facility] ([phone]). They will pick you up at your home on Tuesdays between 10:15 - 10:45 (bus #18), between 10:15-10:45 (bus #14), and Saturdays between 10:45-11:15 (bus #16). When you are almost done with dialysis someone from the center will call them to come pick you up to take you home. The cost of the bus is .$[address]
[2022-04-22] MEDS: cloNIDine HCL 0.2 MG TAB PO SCH (12:17)
[2022-04-22] MEDS: TORSEMIDE 20 MG TAB PO SCH (12:17)
[2022-04-22] MEDS: amLODIPine 10 MG TAB PO SCH (12:17)
[2022-04-22] MEDS: DORZOLAMIDE HCL 2% DROPS 10 ML BTL BOTH EYES SCH (12:18)
[2022-04-22 12:26] VITALS: BP 149/71; RESP 19; TEMP 97.8
[2022-04-22 13:11] VITALS: PULSE 76
== END 2022-04-22 14:37 | disposition home or self-care (01) | DRG 291 ==
LOC: EC 15:09 → 3SCARD 20:16
PROVIDERS: ADMIT Internal Medicine; ATTEND Internal Medicine
PROC: 06HM33Z Insertion of Infusion Device into Right Femoral Vein, Percutaneous Approach (ICD-10-PCS; principal; 2022-04-18 10:00)
PROC: 5A1D70Z Performance of Urinary Filtration, Intermittent, Less than 6 Hours Per Day (ICD-10-PCS; principal; 2022-04-18 10:00)
PROC: 05JY3ZZ Inspection of Upper Vein, Percutaneous Approach (ICD-10-PCS; principal; 2022-04-18 10:00)
PROC: 0JHL3XZ Insertion of Tunneled Vascular Access Device into Right Upper Leg Subcutaneous Tissue and Fascia, Percutaneous Approach (ICD-10-PCS; principal; 2022-04-18 10:00)
DX: I13.2 Hypertensive heart and chronic kidney disease with heart failure and with stage 5 chronic kidney disease, or end stage renal disease (principal); I50.33 Acute on chronic diastolic (congestive) heart failure; N17.0 Acute kidney failure with tubular necrosis; N18.6 End stage renal disease; I34.0 Nonrheumatic mitral (valve) insufficiency; I25.2 Old myocardial infarction; I25.10 Atherosclerotic heart disease of native coronary artery without angina pectoris; G47.30 Sleep apnea, unspecified; D63.1 Anemia in chronic kidney disease; Z68.30 Body mass index [BMI] 30.0-30.9, adult; E11.22 Type 2 diabetes mellitus with diabetic chronic kidney disease; E11.319 Type 2 diabetes mellitus with unspecified diabetic retinopathy without macular edema; I87.8 Other specified disorders of veins; D50.9 Iron deficiency anemia, unspecified; J44.9 Chronic obstructive pulmonary disease, unspecified; E66.9 Obesity, unspecified; Z99.2 Dependence on renal dialysis; E78.5 Hyperlipidemia, unspecified; E83.39 Other disorders of phosphorus metabolism; Z53.9 Procedure and treatment not carried out, unspecified reason; Z79.4 Long term (current) use of insulin; Z86.74 Personal history of sudden cardiac arrest; Z20.822 Contact with and (suspected) exposure to COVID-19; Z79.51 Long term (current) use of inhaled steroids; Z79.899 Other long term (current) drug therapy; Z87.891 Personal history of nicotine dependence; Z96.641 Presence of right artificial hip joint; Z28.21 Immunization not carried out because of patient refusal; Z88.1 Allergy status to other antibiotic agents
CPT/HCPCS: 36415; 36558; 71046; 76937; 77001; 80048; 80053; 82728; 83540; 83550; 83735; 83880; 84100; 84484; 85025; 85610; 85730; 86706; 87340; 87635; 90935; 93005; 93306; 94640; 96374; 96375; 99285

== ENCOUNTER 2022-06-27 08:36 | Day surgery (SDC) | payer MEDICARE, OTHER ==
[2022-06-23 09:15] VITALS: BMI 29.1
[~2022-06-27 08:36] MED LIST changes: -ALPRAZolam 0.5 MG TAB PO ONE; +DEXAMETHASONE SOD PHOSPHATE 4 MG/ML 1 ML VIAL IV ONE; +HYDROmorphone 0.5 MG/0.5 ML SYRINGE IVP PRN; -HYDROmorphone 1 MG/ML 1 ML SYRINGE IVP PRN; +LACTATED RINGERS 1,000 ML IV SCH; +LIDOCAINE 1% (10MG/ML) FOR IV START INTRADERMA PRN; +ONDANSETRON 4 MG/2 ML VIAL IVP ONE
[2022-06-27] MEDS ORDERED: SODIUM CHLORIDE 0.9% 1,000 ML IV ONE (09:28)
[2022-06-27 09:30] LABS: Glucose,Whole Blood 96 mg/dL (70-110)
--- NOTE | 2022-06-27 09:35 | P.GSHP ---
History of Present Illness H&P Date: 06/27/22 Chief Complaint: ESRD 66 year old right handed male with history of ESRD on HD via right chest catheter presents today for AVF creation on the left. He denies any fevers, chills, chest pain or shortness of breath. - Review of Systems All systems: negative (what is mentioned in the PMH or HPI) Past Medical History Past Medical History: COPD, Diabetes Mellitus, Eye Disorder, Hyperlipidemia, Hyp ertension, Myocardial Infarction (NH), Osteoarthritis (OA), Renal Disease, Sleep Apnea/CPAP/BIPAP Additional Past Medical History / Comment(s): diabetic retinopathy, GLAUCOMA. HEMODIALYSIS ,,. USES CPAP Last Myocardial Infarction Date:: 2014 History of Any Multi-Drug Resistant Organisms: None Reported Past Surgical History: Joint Replacement, Tonsillectomy Additional Past Surgical History / Comment(s): rt total hip replacement, lasik eye surgery Past Anesthesia/Blood Transfusion Reactions: Previous Problems w/ Anesthesia Additional Past Anesthesia/Blood Transfusion Reaction / Comment(s): heart rate went very low in recovery room and admitted into icu after hip surgery at [facility]-12/24/21: pt states "cardiac arrest during hip replacement surgery with Dr Franklin at [facility] in 2014" Past Psychological History: No Psychological Hx Reported Smoking Status: Former smoker Past Alcohol Use History: None Reported Additional Past Alcohol Use History / Comment(s): quit smoking approx 2009,smoked approx since age 13,<1ppd Past Drug Use History: None Reported - Past Family History Sister(s) Family Medical History: Cancer Additional Family Medical History / Comment(s): ovarian CA, lung CA Brother(s) Family Medical History: Cancer Additional Family Medical History / Comment(s): prostate CA Medications and Allergies Home Medications Medication Instructions Recorded Confirmed Type Budesonide-Formot 160-4.5 Mcg 2 puff INHALATION RT-BID 11/03/14 06/23/22 History [Symbicort 160-4.5 Mcg Inhaler] Tiotropium [place] [Spiriva 2 puff INHALATION RT-DAILY 11/03/14 06/23/22 History Respimat] amLODIPine BESYLATE 10 mg PO QAM 04/11/18 06/23/22 History Latanoprost/Pf [Latanoprost 0.005% 1 drop BOTH EYES HS 05/23/19 06/23/22 History Eye Drop] calcitrioL [Calcitriol] 0.25 mcg PO DAILY 05/23/19 06/23/22 History Atorvastatin Calcium [Lipitor] 80 mg PO HS 04/15/22 06/23/22 History Dorzolamide 2% [Trusopt 2%] 1 drops BOTH EYES BID 04/15/22 06/23/22 History Insulin Aspart Prot/Insuln Asp 60 - 80 unit SQ AC-BID 04/15/22 06/27/22 History [Novolog MIX 70-30 Flexpen] cloNIDine HCL [Catapres] 0.2 mg PO BID 04/15/22 06/23/22 History hydrALAZINE HCL [Apresoline] 100 mg PO BID 04/15/22 06/23/22 History Torsemide [Demadex] 20 mg PO BID 06/03/22 06/23/22 History Allergies Allergy/AdvReac Type Severity Reaction Status Date / Time clindamycin Allergy Anaphylaxis Verified 06/27/22 08:55 Surgical - Exam - General well developed, well nourished, no distress - Eyes PERRL, normal ocular movement - ENT normal pinna - Neck no masses - Respiratory normal expansion, normal respiratory effort - Cardiovascular Rhythm: regular - Abdomen Abdomen: soft, non tender - Integumentary no rash, no growths - Neurologic normal sensation - Musculoskeletal normal gait - Psychiatric oriented to time, oriented to person, oriented to place, speech is normal palpable radial pulse bilaterally Results - Imaging Additional studies: vein mapping upper extremity suitable for radiocephalic fistula creation on the left. Assessment and Plan Assessment: ESRD on HD Plan: To OR for left upper extremity radiocephalic fistula creation.
[2022-06-27] MEDS: MIDAZOLAM 2 MG/2 ML VIAL IV PRN ×3 (09:44→10:00)
[2022-06-27] MEDS ORDERED: fentaNYL (PF) 50 MCG/1 ML VIAL IVP ONE (10:00)
[2022-06-27] MEDS ORDERED: HYDROmorphone (PF) 1 MG/ML ONE (10:10)
[2022-06-27] MEDS ORDERED: ROPIVACAINE 5 MG/ML 30 ML VIAL ONE (10:10)
[2022-06-27] MEDS ORDERED: KETAMINE 10 MG/ML 20 ML VIAL ONE (10:10)
[2022-06-27] MEDS ORDERED: fentaNYL (PF) 50 MCG/ML 2 ML AMP ONE (10:10)
[2022-06-27] MEDS ORDERED: LIDOCAINE 2% INJ 20 MG/ML (2 ML VIAL) ONE (10:10)
[2022-06-27] MEDS ORDERED: DEXAMETHASONE SOD PHOSPHATE 4 MG/ML 1 ML VIAL ONE (10:10)
[2022-06-27] MEDS ORDERED: PROPOFOL 10 MG/ML 20 ML VIAL IV ONE (10:10)
[2022-06-27] MEDS ORDERED: MIDAZOLAM 2 MG/2 ML VIAL ONE (10:10)
[2022-06-27] MEDS ORDERED: ceFAZolin 2 GM in SODIUM CHLORIDE 0.9% 500 ML 500 ML IRRIGATION ONE (10:22)
[2022-06-27] MEDS ORDERED: HEPARIN SODIUM,PORCINE 2,000 UNIT in SODIUM CHLORIDE 0.9% 500 ML 500 ML IRRIGATION ONE (10:33)
[2022-06-27 10:42] LABS: Potassium 5.5 mmol/L (3.5-5.1)
[2022-06-27] MEDS ORDERED: BUPIVACAINE (PF) 0.25% 30 ML VIAL SQ ONE (10:49)
--- NOTE | 2022-06-27 11:01 | P.ANPRN ---
Procedure Note - Anesthesia - Nerve Block Performed Left Supraclavicular Single Time Out Performed: Yes Date of Procedure: 06/27/22 Procedure Start Time: 10:00 Procedure Stop Time: 10:06 Location of Patient: PreOp Indication: Requested by Surgeon Specifically requested for management of pain by DrRomina: Bereket Hugo Sedation Type: Sedate with meaningful contact maintained Preparation: Sterile Prep Position: Supine Needle Types: Pajunk Needle Gauge: 21 Ultrasound used to visualize needle placement: Yes Ultrasound used to observe medication spread: Yes Injectate: 0.5% Ropivacaine (see comment for volume) (20 ml + 4mg Dexamethasone) Blood Aspirated: No Pain Paresthesia on Injection Noted: No Resistance on Injection: Normal Image Stored and Saved: Yes Events: Uneventful and Well Tolerated
[2022-06-27 12:04] VITALS: RESP 18
[2022-06-27 12:08] LABS: Glucose,Whole Blood 119 mg/dL (70-110)
[2022-06-27 12:18] VITALS: PULSE 78
--- NOTE | 2022-06-27 12:23 | P.OP ---
Date of Procedure: 06/27/22 Preoperative Diagnosis: ESRD Postoperative Diagnosis: Same Procedure(s) Performed: Attempted left upper extremity radiocephalic arteriovenous fistula creation Anesthesia: MAC, regional Surgeon: Bereket Hugo Estimated Blood Loss (ml): 5 Pathology: none sent Condition: stable Disposition: PACU Indications for Procedure: 66-year-old gentleman with history of incisional disease on hemodialysis via a tunneled chest catheter presents to the OR for creation of left upper extremity radiocephalic fistula. Upon recent ultrasound his cephalic vein appeared to be suitable for fistula creation. All risks benefits and competitions were discussed with the patient. Description of Procedure: After written and informed consent was obtained from the patient the patient was brought to the operative suite and laid in a supine position. The left arm was prepped and draped in the usual sterile fashion after appropriate anesthesia was performed per the anesthesiologist. Utilizing ultrasound the cephalic vein was visualized and marked and shown to be good size. A small vertical incision was then created with a 15 blade scalpel just proximal to the wrist and dissection was carried down to the radial artery which was dissected free in a circumferential manner. Proximal distal control was then obtained with vessel loops. Attention was then placed back to the cephalic vein which was located and dissected free in a circumferential manner distally to the wrist. The vein was diminutive appearance and therefore dissection was carried back towards the bifurcation of the cephalic vein found on ultrasound. At the bifurcation the band appeared to be healthy but this was at the mid forearm and it bifurcated and extended laterally. By this time patient was complaining of pain in his back and trying to get off the table and therefore procedure was concluded due to significantly more dissection which will be required and the vein appears to be fibrotic at the cephalic section at the wrist. He will likely require a graft radial artery to basilic vein. The incision sites were then closed in a multilayer fashion skin was cleansed and dressings were placed. Patient had a palpable radial pulse conclusion of the procedure. He'll follow-up in the office for scheduling of another arteriovenous graft creation. Plan - Discharge Summary Discharge Rx Participant: No New Discharge Prescriptions: No Action Tiotropium [place] [Spiriva Respimat] 2 puff INHALATION RT-DAILY Budesonide-Formot 160-4.5 Mcg [Symbicort 160-4.5 Mcg Inhaler] 2 puff INHALATION RT-BID amLODIPine BESYLATE 10 mg PO QAM calcitrioL [Calcitriol] 0.25 mcg PO DAILY Latanoprost/Pf [Latanoprost 0.005% Eye Drop] 1 drop BOTH EYES HS hydrALAZINE HCL [Apresoline] 100 mg PO BID Insulin Aspart Prot/Insuln Asp [Novolog MIX 70-30 Flexpen] 60 - 80 unit SQ AC-BID cloNIDine HCL [Catapres] 0.2 mg PO BID Dorzolamide 2% [Trusopt 2%] 1 drops BOTH EYES BID Atorvastatin Calcium [Lipitor] 80 mg PO HS Torsemide [Demadex] 20 mg PO BID Discharge Medication List Budesonide-Formot 160-4.5 Mcg [Symbicort 160-4.5 Mcg Inhaler] 2 puff INHALATION RT-BID 11/03/14 [History] Tiotropium [place] [Spiriva Respimat] 2 puff INHALATION RT-DAILY 11/03/14 [History] amLODIPine BESYLATE 10 mg PO QAM 04/11/18 [History] Latanoprost/Pf [Latanoprost 0.005% Eye Drop] 1 drop BOTH EYES HS 05/23/19 [History] calcitrioL [Calcitriol] 0.25 mcg PO DAILY 05/23/19 [History] Atorvastatin Calcium [Lipitor] 80 mg PO HS 04/15/22 [History] Dorzolamide 2% [Trusopt 2%] 1 drops BOTH EYES BID 04/15/22 [History] Insulin Aspart Prot/Insuln Asp [Novolog MIX 70-30 Flexpen] 60 - 80 unit SQ AC- BID 04/15/22 [History] cloNIDine HCL [Catapres] 0.2 mg PO BID 04/15/22 [History] hydrALAZINE HCL [Apresoline] 100 mg PO BID 04/15/22 [History] Torsemide [Demadex] 20 mg PO BID 06/03/22 [History] Follow up Appointment(s)/Referral(s): Bereket Hugo DO [STAFF PHYSICIAN] - 1 Week (Please call office to schedule follow up) Patient Instructions/Handouts: *Surgery [facility] - (Anesthesia) Discharge Instructions Outpatient Surgery, Arteriovenous Fistula Creation for Hemodialysis (DC) Discharge Disposition: HOME SELF-CARE
[2022-06-27] MEDS ORDERED: hydrALAZINE HCL 20 MG/ML 1 ML VIAL ONE (12:24)
[2022-06-27] MEDS ORDERED: hydrALAZINE HCL 20 MG/ML 1 ML VIAL IVP ONE (12:26)
[2022-06-27 13:00] VITALS: BP 178/80
== END 2022-06-27 13:10 | disposition home or self-care (01) ==
LOC: OR 08:36
PROVIDERS: ATTEND Surgery
DX: N18.6 End stage renal disease (principal); I12.0 Hypertensive chronic kidney disease with stage 5 chronic kidney disease or end stage renal disease; E11.22 Type 2 diabetes mellitus with diabetic chronic kidney disease; I25.2 Old myocardial infarction; J44.9 Chronic obstructive pulmonary disease, unspecified; H40.9 Unspecified glaucoma; E11.319 Type 2 diabetes mellitus with unspecified diabetic retinopathy without macular edema; Z99.2 Dependence on renal dialysis; Z79.4 Long term (current) use of insulin; Z79.84 Long term (current) use of oral hypoglycemic drugs; Z79.82 Long term (current) use of aspirin; Z79.891 Long term (current) use of opiate analgesic; Z79.899 Other long term (current) drug therapy; Z79.02 Long term (current) use of antithrombotics/antiplatelets; Z79.51 Long term (current) use of inhaled steroids; G47.30 Sleep apnea, unspecified; Z96.641 Presence of right artificial hip joint; Z98.890 Other specified postprocedural states; Z87.891 Personal history of nicotine dependence; Z80.1 Family history of malignant neoplasm of trachea, bronchus and lung; Z80.41 Family history of malignant neoplasm of ovary; Z80.42 Family history of malignant neoplasm of prostate; Z88.1 Allergy status to other antibiotic agents
CPT/HCPCS: 64415; 76942; 80051; 36821; J2250; J0360; J1644; J1100; J0690; J2405; J3010 ×2; J1170; J2795; J2704; J2001

== ENCOUNTER 2023-08-19 07:14 | Observation (INO) | payer MEDICARE, OTHER ==
[2023-08-19 07:59] LABS: Basophils % (A) 0 %; Eosinophils # (A) 0.2 k/uL (0-0.7); Eosinophils % (A) 2 %; HCT 33.6 % (39.0-53.0); HGB 10.7 gm/dL (13.0-17.5); Lymphocytes # (A) 0.5 k/uL (1.0-4.8); Lymphocytes % (A) 5 %; MCH 30.9 pg (25.0-35.0); MCHC 31.9 g/dL (31.0-37.0); MCV 96.8 fL (80.0-100.0); Mean Platelet Volume 7.9; Monocytes # (A) 0.6 k/uL (0-1.0); Monocytes % (A) 6 %; Neutrophils # (A) 9.6 k/uL (1.3-7.7); Neutrophils % (A) 87 %; Platelet Count 271 k/uL (150-450); RBC 3.47 m/uL (4.30-5.90); RDW 14.3 % (11.5-15.5)
[2023-08-19 08:08] LABS: Appearance,Urine Clear (Clear); Bacteria,Urine Rare /hpf; Bilirubin,Urine Negative (Negative); Blood,Urine Trace (Negative); Color,Urine Colorless; Glucose,Urine (UA) 2+ (Negative); Ketones,Urine Negative (Negative); Leukocyte Esterase,Urine Small (Negative); Mucus,Urine Rare /hpf; Nitrite,Urine Negative (Negative); Protein,Urine 3+ (Negative); RBC,Urine 1 /hpf (0-5); Specific Gravity,Urine 1.014 (1.001-1.035); Squamous Epithelial Cell,Urine 3 /hpf (0-4); Urobilinogen,Urine <2.0 mg/dL (<2.0); WBC,Urine 1 /hpf (0-5)
--- NOTE | 2023-08-19 08:10 | ED ---
General Adult HPI - General Chief complaint: Shortness of Breath Stated complaint: Nausea Time Seen by Provider: 08/19/23 07:27 Source: patient, RN notes reviewed, old records reviewed Mode of arrival: ambulatory Limitations: no limitations - History of Present Illness Initial comments: 67-year-old male presenting for evaluation of increased dyspnea and fluid retention. Patient is on hemodialysis and states he has missed several treatments. He reports some nausea as well. He states he does make urine but this is quite minimal. He states he missed dialysis due to a recent loss in the family. Denies central chest pain. Denies fever. - Related Data Home Medications Medication Instructions Recorded Confirmed Budesonide-Formot 160-4.5 Mcg 2 puff INHALATION RT-BID 11/03/14 10/13/22 [Symbicort 160-4.5 Mcg Inhaler] Tiotropium [place] [Spiriva 2 puff INHALATION BID 11/03/14 10/13/22 Respimat] Latanoprost/Pf [Latanoprost 0.005% 1 drop BOTH EYES HS 05/23/19 10/13/22 Eye Drop] calcitrioL 0.25 mcg PO DAILY 05/23/19 10/13/22 Atorvastatin Calcium [Lipitor] 80 mg PO HS 04/15/22 10/13/22 Dorzolamide 2% [Trusopt 2%] 1 drops BOTH EYES BID 04/15/22 10/13/22 Insulin Aspart Prot/Insuln Asp 60 - 80 unit SQ AC-BID PRN 04/15/22 10/13/22 [NovoLOG MIX 70-30 Flexpen] cloNIDine HCL [Catapres] 0.2 mg PO BID PRN 04/15/22 10/13/22 hydrALAZINE HCL [Apresoline] 25 mg PO BID PRN 04/15/22 10/13/22 Torsemide [Demadex] 20 mg PO BID PRN 06/03/22 10/13/22 Allergies Allergy/AdvReac Type Severity Reaction Status Date / Time clindamycin Allergy Anaphylaxis Verified 08/19/23 07:23 Review of Systems ROS Statement: Those systems with pertinent positive or pertinent negative responses have been documented in the HPI. ROS Other: All systems not noted in ROS Statement are negative. Past Medical History Past Medical History: COPD, Diabetes Mellitus, Eye Disorder, Hyperlipidemia, Hypertension, Myocardial Infarction (MA), Osteoarthritis (OA), Renal Disease, Sleep Apnea/CPAP/BIPAP Additional Past Medical History / Comment(s): IDDM,Diabetic retinopathy, GLAUCOMA. HEMODIALYSIS ,TH,SA-4 hours-access rt chest port. USES CPAP-machine currently not working calling [facility] Last Myocardial Infarction Date:: 2014 History of Any Multi-Drug Resistant Organisms: None Reported Past Surgical History: Joint Replacement, Tonsillectomy Additional Past Surgical History / Comment(s): rt total hip replacement, lasik eye surgery. FX JAW WIRED IN 1989,failed av fistula left upper arm Past Anesthesia/Blood Transfusion Reactions: Previous Problems w/ Anesthesia Additional Past Anesthesia/Blood Transfusion Reaction / Comment(s): pt states "cardiac arrest during hip replacement surgery with Dr Franklin at [facility] in 2014" Past Psychological History: No Psychological Hx Reported Smoking Status: Former smoker Past Alcohol Use History: None Reported Past Drug Use History: None Reported - Past Family History Sister(s) Family Medical History: Cancer Additional Family Medical History / Comment(s): ovarian CA, lung CA Brother(s) Family Medical History: Cancer Additional Family Medical History / Comment(s): prostate CA General Exam Limitations: no limitations General appearance: alert, in no apparent distress Head exam: Present: atraumatic, normocephalic Eye exam: Present: normal appearance, PERRL ENT exam: Present: normal exam Neck exam: Present: normal inspection. Absent: tenderness, meningismus Respiratory exam: Present: rales, decreased breath sounds. Absent: respiratory distress Cardiovascular Exam: Present: normal rhythm, tachycardia GI/Abdominal exam: Present: soft, distended. Absent: tenderness, guarding Extremities exam: Present: pedal edema Neurological exam: Present: alert, oriented X3, CN II-XII intact Psychiatric exam: Present: normal affect, normal mood Skin exam: Present: warm, dry, intact. Absent: cyanosis, diaphoretic Course Vital Signs 08/19/23 08/19/23 08/19/23 07:23 07:27 08:01 Temperature 97.7 F Pulse Rate 118 H 112 H Respiratory 20 20 20 Rate Blood Pressure 162/83 171/90 O2 Sat by Pulse 96 95 Oximetry Medical Decision Making - Medical Decision Making Was pt. sent in by a medical professional or institution (, PA, CARD SORTER, urgent care, hospital, or correction...) When possible be specific @ -No Did you speak to anyone other than the patient for history (EMS, parent, family, police, friend...)? What history was obtained from this source @ -No Did you review nursing and triage notes (agree or disagree)? Why? @ -I reviewed and agree with nursing and triage notes Were old charts reviewed (outside hosp., previous admission, EMS record, old EKG, old radiological studies, urgent care reports/EKG's, correction records)? Report findings @ -No old charts were reviewed Differential Diagnosis (chest pain, altered mental status, abdominal pain women, abdominal pain men, vaginal bleeding, weakness, fever, dyspnea, syncope, headache, dizziness, GI bleed, back pain, seizure, CVA, palpatations, mental hea lth, musculoskeletal)? @ -Differential Weakness: Hypoglycemia, shock, sepsis, hyponatremia, anemia, infection, MA, ETOH, adverse medicine reaction, overdose, stroke, this is not meant to be an all-inclusive list. EKG interpreted by me (3pts min.). @ -Sinus tachycardia, rate of 118 UT interval 131, QRS duration 109, QTc 384 T wave inversion in the inferior leads, X-rays interpreted by me (1pt min.). @ -No acute process. CT interpreted by me (1pt min.). @ -None done U/S interpreted by me (1pt. min.). @ -None done What testing was considered but not performed or refused? (CT, X-rays, U/S, labs)? Why? @ -None What meds were considered but not given or refused? Why? @ -None Did you discuss the management of the patient with other professionals (professionals i.e. , PA, CARD SORTER, lab, RT, psych nurse, social group worker, train brakeman, teacher, branch officer, leather case finisher)? Give summary @Case discussed with Dr. Helen mojica for nephrology and Dr. Mira mojica for sound physician group Was smoking cessation discussed for >3mins.? @ -No Was critical care preformed (if so, how long)? @ -No Were there social determinants of health that impacted care today? How? (Homelessness, low income, unemployed, alcoholism, drug addiction, transportation, low edu. Level, literacy, decrease access to med. care, senior living, rehab)? @ -No Was there de-escalation of care discussed even if they declined (Discuss DNR or withdrawal of care, Hospice)? DNR status @ -No What co-morbidities impacted this encounter? (DM, HTN, Smoking, COPD, CAD, Cancer, CVA, ARF, Chemo, Hep., AIDS, mental health diagnosis, sleep apnea, morbid obesity)? @ -End-stage renal disease Was patient admitted / discharged? Hospital course, mention meds given and route, prescriptions, significant lab abnormalities, going to OR and other pertinent info. @ -[67-year-old male with end-stage renal disease, presents with nausea and shortness of breath after missing dialysis. Potassium is 5. He is mildly acidotic. He is uremic with a BUN of 95. He will require hemodialysis. Undiagnosed new problem with uncertain prognosis? @ -No Drug Therapy requiring intensive monitoring for toxicity (Heparin, Nitro, Insulin, Cardizem)? @ -No Were any procedures done? @ -No Diagnosis/symptom? @End-stage renal disease, uremia, fluid overload Acute, or Chronic, or Acute on Chronic? @ -Acute on chronic Uncomplicated (without systemic symptoms) or Complicated (systemic symptoms)? @Complicated Side effects of treatment? @ -No Exacerbation, Progression, or Severe Exacerbation? @ -No Poses a threat to life or bodily function? How? (Chest pain, USA, MA, pneumonia, PE, COPD, DKA, ARF, appy, cholecystitis, CVA, Diverticulitis, Homicidal, Suicidal, threat to staff... and all critical care pts) @ -[Yes, electrolyte abnormality, uremia, arrhythmia - Lab Data Result diagrams: 08/19/23 07:50 08/19/23 07:50 Lab Results 08/19/23 08/19/23 08/19/23 Range/Units 07:50 07:50 07:50 WBC 11.0 H (3.8-10.6) k/uL RBC 3.47 L (4.30-5.90) m/uL Hgb 10.7 L (13.0-17.5) gm/dL Hct 33.6 L (39.0-53.0) % MCV 96.8 (80.0-100.0) fL MCH 30.9 (25.0-35.0) pg MCHC 31.9 (31.0-37.0) g/dL RDW 14.3 (11.5-15.5) % Plt Count 271 (150-450) k/uL MPV 7.9 Neutrophils % 87 % Lymphocytes % 5 % Monocytes % 6 % Eosinophils % 2 % Basophils % 0 % Neutrophils # 9.6 H (1.3-7.7) k/uL Lymphocytes # 0.5 L (1.0-4.8) k/uL Monocytes # 0.6 (0-1.0) k/uL Eosinophils # 0.2 (0-0.7) k/uL Basophils # 0.0 (0-0.2) k/uL Sodium 145 (137-145) mmol/L Potassium 5.0 (3.5-5.1) mmol/L Chloride 112 H (98-107) mmol/L Carbon Dioxide 17 L (22-30) mmol/L Anion Gap 16 mmol/L BUN 96 H (9-20) mg/dL Creatinine 6.40 H (0.66-1.25) mg/dL Est GFR (CKD-EPI)AfAm 9 (>60 ml/min/1.73 sqM) Est GFR (CKD-EPI)NonAf 8 (>60 ml/min/1.73 sqM) Glucose 158 H (74-99) mg/dL Calcium 7.6 L (8.4-10.2) mg/dL Phosphorus 5.8 H (2.5-4.5) mg/dL Magnesium 2.1 (1.6-2.3) mg/dL Total Bilirubin 0.5 (0.2-1.3) mg/dL AST 22 (17-59) U/L ALT 36 (4-49) U/L Alkaline Phosphatase 114 (38-126) U/L Total Protein 6.8 (6.3-8.2) g/dL Albumin 3.8 (3.5-5.0) g/dL Urine Color Colorless Urine Appearance Clear (Clear) Urine pH 7.0 (5.0-8.0) Ur Specific [place] 1.014 (1.001-1.035) Urine Protein 3+ H (Negative) Urine Glucose (UA) 2+ H (Negative) Urine Ketones Negative (Negative) Urine Blood Trace H (Negative) Urine Nitrite Negative (Negative) Urine Bilirubin Negative (Negative) Urine Urobilinogen <2.0 (<2.0) mg/dL Ur Leukocyte Esterase Small H (Negative) Urine RBC 1 (0-5) /hpf Urine WBC 1 (0-5) /hpf Ur Squamous Epith Cells 3 (0-4) /hpf Urine Bacteria Rare H (None) /hpf Urine Mucus Rare H (None) /hpf Disposition Clinical Impression: ESRF (end stage renal failure), Uremia, Fluid overload Disposition: ADMITTED IP TO THIS HOSP Condition: Stable Is patient prescribed a controlled substance at d/c from ED?: No Referrals: None,Stated [Primary Care Provider] - 1-2 days Time of Disposition: 08:48
[2023-08-19 08:23] LABS: ALT 36 U/L (4-49); AST 22 U/L (17-59); African American GFR (CKD) 9 (>60 ml/min/1.73 sqM); Albumin 3.8 g/dL (3.5-5.0); Alkaline Phosphatase 114 U/L (38-126); Anion Gap 16 mmol/L; Blood Urea Nitrogen 96 mg/dL (9-20); Calcium 7.6 mg/dL (8.4-10.2); Carbon Dioxide 17 mmol/L (22-30); Chloride 112 mmol/L (98-107); Glucose 158 mg/dL (74-99); Magnesium 2.1 mg/dL (1.6-2.3); Non-African American GFR(CKD) 8 (>60 ml/min/1.73 sqM); Phosphorus 5.8 mg/dL (2.5-4.5); Sodium 145 mmol/L (137-145); Total Bilirubin 0.5 mg/dL (0.2-1.3); Total Protein 6.8 g/dL (6.3-8.2)
--- NOTE | 2023-08-19 08:26 | XR ---
EXAMINATION TYPE: XR chest 2V DATE OF EXAM: 08/19/2023 COMPARISON: 04/15/2022 HISTORY: Difficulty breathing TECHNIQUE: Frontal and lateral views of the chest are obtained. FINDINGS: There is a partially consolidated infiltrate in the left lower lobe posteriorly with a pro bable small left pleural effusion. The findings are suspicious for acute pneumonia. The right lung is clear. The heart size is prominent. The pulmonary vasculature is not congested. The osseous structures are intact. IMPRESSION: Left lower lobe infiltrate and effusion likely indicative of a pneumonic infiltrate. Clinical correla tion short-term follow-up to resolution is recommended. IMPRESSION: No acute cardiopulmonary process.
[2023-08-19] MEDS ORDERED: NALOXONE 0.4 MG/ML 1 ML VIAL IV PRN (08:36)
[2023-08-19] MEDS ORDERED: DEXTROSE 50% SYRINGE 50 ML IVP PRN ×2 (10:51)
--- NOTE | 2023-08-19 10:55 | P.HPIM ---
History of Present Illness H&P Date: 08/19/23 Patient is a 67-year-old male with history of ESRD on hemodialysis TTS, hypertension, insulin-dependent diabetes, and dyslipidemia presenting with shortness of breath. Patient claims that his this past week, and because of that he did not go for his last 3 dialysis sessions. He was planning on going today, but felt extremely dyspneic which led to him coming to the hospital. He makes very minimal urine. He denies any other changes recently. He denies any fevers, chills, abdominal pain, nausea, vomiting, or bowel complaints. He claims that his legs did swell up over the last week. He denies any sick contacts or travel history. In the ED, temperature was 97.7, pulse 118, respiratory rate 20, blood pressure 162/83, saturating at 96% on room air. WBC 11, hemoglobin 10.7, bicarb 17, anion gap 16, BUN 96, creatinine 6.4, phosphorus 5.8, calcium 7.6. Urinalysis shows negative nitrites, small leukocyte esterase, 3+ protein, 2+ glucose. Chest x-ray independently interpreted, shows interstitial opacities bilateral. EKG independently interpreted, shows sinus tachycardia. Patient admitted for hypervolemia in the setting of ESRD and missed hemodialysis sessions. Nephrology consulted. Pertinent positives and negatives as discussed in HPI, a complete review of systems was performed and all other systems are negative. Patient seen and examined at bedside. Vital signs reviewed General: nontoxic, no distress, appears at stated age Derm: warm, dry Head: atraumatic, normocephalic, symmetric Eyes: EOMI, no lid lag, anicteric sclera, pupils equal round reactive to light ENT: Nose and ears atraumatic Neck: No thyromegaly, supple Mouth: no lip lesion, mucus membranes moist Cardiovascular: S1S2 reg, no murmur, 2+ pitting lower extremity edema Lungs: Bibasilar rales, no wheeze, no accessory muscle use Abdominal: soft, nontender to palpation, no guarding, no appreciable organomegaly Ext: no gross muscle atrophy, muscle strength muscle strength 5 out of 5 in all 4 extremities, no contractures, left arm fistula with good thrill and bruit Neuro: CN II-XII grossly intact Psych: Alert, oriented, appropriate affect Assessment/Plan: Active: Hypervolemia secondary to missed hemodialysis sessions ESRD on hemodialysis TTS Hypocalcemia Hyperphosphatemia Mild anion gap metabolic acidosis - Nephrology consulted, pending recommendations - Likely hemodialysis today Insulin-dependent diabetes - Sliding scale insulin, monitor for hypoglycemia Chronic: COPD Dyslipidemia Hypertension - Restart home medications when confirmed by pharmacy The patient is admitted with an anticipated less than 2 midnight stay as observation status for evaluation of hypervolemia. Surrogate decision-maker: Unknown CODE STATUS: Full code DVT prophylaxis: Subcu heparin Anticipated discharge date: Pending clinical course Anticipated discharge place: Pending clinical course A total of minutes was spent on the care of this complex patient more than 50% of the time was spent in counseling and care coordination. Past Medical History Past Medical History: COPD, Diabetes Mellitus, Eye Disorder, Hyperlipidemia, Hy pertension, Myocardial Infarction ([place]), Osteoarthritis (OA), Renal Disease, Sleep Apnea/CPAP/BIPAP Additional Past Medical History / Comment(s): IDDM,Diabetic retinopathy, GLA UCOMA. HEMODIALYSIS ,,SA-4 hours-access rt chest port. USES CPAP-machine currently not working calling [facility] Last Myocardial Infarction Date:: 2014 History of Any Multi-Drug Resistant Organisms: None Reported Past Surgical History: Joint Replacement, Tonsillectomy Additional Past Surgical History / Comment(s): rt total hip replacement, lasik eye surgery. FX JAW WIRED IN 1989,failed av fistula left upper arm Past Anesthesia/Blood Transfusion Reactions: Previous Problems w/ Anesthesia Additional Past Anesthesia/Blood Transfusion Reaction / Comment(s): pt states "cardiac arrest during hip replacement surgery with Dr Franklin at [facility] in 2014" Past Psychological History: No Psychological Hx Reported Smoking Status: Former smoker Past Alcohol Use History: None Reported Past Drug Use History: None Reported - Past Family History Sister(s) Family Medical History: Cancer Additional Family Medical History / Comment(s): ovarian CA, lung CA Brother(s) Family Medical History: Cancer Additional Family Medical History / Comment(s): prostate CA Medications and Allergies Home Medications Medication Instructions Recorded Confirmed Type Budesonide-Formot 160-4.5 Mcg 2 puff INHALATION RT-BID 11/03/14 10/13/22 History [Symbicort 160-4.5 Mcg Inhaler] Tiotropium [place] [Spiriva 2 puff INHALATION BID 11/03/14 10/13/22 History Respimat] Latanoprost/Pf [Latanoprost 0.005% 1 drop BOTH EYES HS 05/23/19 10/13/22 History Eye Drop] calcitrioL 0.25 mcg PO DAILY 05/23/19 10/13/22 History Atorvastatin Calcium [Lipitor] 80 mg PO HS 04/15/22 10/13/22 History Dorzolamide 2% [Trusopt 2%] 1 drops BOTH EYES BID 04/15/22 10/13/22 History Insulin Aspart Prot/Insuln Asp 60 - 80 unit SQ AC-BID PRN 04/15/22 10/13/22 His tory [NovoLOG MIX 70-30 Flexpen] cloNIDine HCL [Catapres] 0.2 mg PO BID PRN 04/15/22 10/13/22 History hydrALAZINE HCL [Apresoline] 25 mg PO BID PRN 04/15/22 10/13/22 History Torsemide [Demadex] 20 mg PO BID PRN 06/03/22 10/13/22 History Allergies Allergy/AdvReac Type Severity Reaction Status Date / Time clindamycin Allergy Anaphylaxis Verified 08/19/23 07:23 Physical Exam Vitals: Vital Signs Temp Pulse Resp BP Pulse Ox 08/19/23 10:00 90 20 165/85 98 08/19/23 09:06 110 H 20 178/90 92 L 08/19/23 08:01 20 08/19/23 07:27 112 H 20 171/90 95 08/19/23 07:23 97.7 F 118 H 20 162/83 96 Intake and Output 08/18/23 08/19/23 08/19/23 22:59 06:59 14:59 Other: Weight 93.44 kg Results CBC & Chem 7: 08/19/23 07:50 08/19/23 07:50 Labs: Abnormal Lab Results - Last 24 Hours (Table) 08/19/23 08/19/23 08/19/23 Range/Units 07:50 07:50 07:50 WBC 11.0 H (3.8-10.6) k/uL RBC 3.47 L (4.30-5.90) m/uL Hgb 10.7 L (13.0-17.5) gm/dL Hct 33.6 L (39.0-53.0) % Neutrophils # 9.6 H (1.3-7.7) k/uL Lymphocytes # 0.5 L (1.0-4.8) k/uL Chloride 112 H (98-107) mmol/L Carbon Dioxide 17 L (22-30) mmol/L BUN 96 H (9-20) mg/dL Creatinine 6.40 H (0.66-1.25) mg/dL Glucose 158 H (74-99) mg/dL Calcium 7.6 L (8.4-10.2) mg/dL Phosphorus 5.8 H (2.5-4.5) mg/dL Urine Protein 3+ H (Negative) Urine Glucose (UA) 2+ H (Negative) Urine Blood Trace H (Negative) Ur Leukocyte Esterase Small H (Negative) Urine Bacteria Rare H (None) /hpf Urine Mucus Rare H (None) /hpf
--- NOTE | 2023-08-19 11:20 | P.NPCON ---
History of Present Illness - Reason for Consult end stage renal disease - History of Present Illness Reason for consultation: End-stage renal disease History of present illness: Patient is a 67-year-old male seen in renal consultation for end-stage renal disease. He is maintained on hemodialysis on Monday schedule via left upper extremity AV fistula. Patient normally dialyzes at [facility] but moved to [place] for about a month or so. Patient states he has been dialyzing at [place] but missed the last week of hemodialysis due to feeling depressed. Patient states he lost his in March 2023 and has been feeling down since. Patient states he developed shortness of breath about 2 days ago which was progressively getting worse. Patient states he was going to go to hemodialysis today but decided to come to the hospital instead. He denies chest pain. Patient has longstanding history of diabetes. He denies any vomiting or diarrhea. Denies history of coronary artery disease. No fever or chills. No cough. No abdominal pain. Does have edema in the lower e xtremities. Vital signs are stable. General: No acute distress. HEENT: Head exam is unremarkable. On room air. LUNGS: No audible rhonchi or wheezes. HEART: Rate and Rhythm are regular. ABDOMEN: Obese, nontender. EXTREMITITES: 2+ edema. Past Medical History Past Medical History: COPD, Diabetes Mellitus, Eye Disorder, Hyperlipidemia, Hypertension, Myocardial Infarction ([place]), Osteoarthritis (OA), Renal Disease, Sleep Apnea/CPAP/BIPAP Additional Past Medical History / Comment(s): IDDM,Diabetic retinopathy, GLAUCOMA. HEMODIALYSIS ,-4 hours-access rt chest port. USES CPAP-machine currently not working calling [facility] Last Myocardial Infarction Date:: 2014 History of Any Multi-Drug Resistant Organisms: None Reported Past Surgical History: Joint Replacement, Tonsillectomy Additional Past Surgical History / Comment(s): rt total hip replacement, lasik eye surgery. FX JAW WIRED IN 1989,failed av fistula left upper arm Past Anesthesia/Blood Transfusion Reactions: Previous Problems w/ Anesthesia Additional Past Anesthesia/Blood Transfusion Reaction / Comment(s): pt states "cardiac arrest during hip replacement surgery with Dr Franklin at [facility] in 2014" Past Psychological History: No Psychological Hx Reported Smoking Status: Former smoker Past Alcohol Use History: None Reported Past Drug Use History: None Reported - Past Family History Sister(s) Family Medical History: Cancer Additional Family Medical History / Comment(s): ovarian CA, lung CA Brother(s) Family Medical History: Cancer Additional Family Medical History / Comment(s): prostate CA Medications and Allergies Home Medications Medication Instructions Recorded Confirmed Type RX: Tiotropium [place] [Spiriva 2 puff INHALATION RT-DAILY 11/03/14 08/19/23 History Respimat] RX: Latanoprost/Pf [Latanoprost 1 drop BOTH EYES HS 05/23/19 08/19/23 History 0.005% Eye Drop] RX: Atorvastatin Calcium [Lipitor] 80 mg PO HS 04/15/22 08/19/23 History RX: Dorzolamide 2% [Trusopt 2%] 1 drop BOTH EYES DAILY 04/15/22 08/19/23 History RX: Insulin Aspart Prot/Insuln Asp 1 - 90 unit SQ BID-W/MEALS 04/15/22 08/19/23 History [NovoLOG MIX 70-30 Flexpen] RX: cloNIDine HCL [Catapres] 0.2 mg PO BID 04/15/22 08/19/23 History RX: hydrALAZINE HCL [Apresoline] 100 mg PO BID 04/15/22 08/19/23 History Calcium Carbonate [Tums] 500 mg PO TID-W/MEALS 08/19/23 08/19/23 History Losartan [Cozaar] 50 mg PO DAILY 08/19/23 08/19/23 History Omeprazole [PriLOSEC] 20 mg PO BID 08/19/23 08/19/23 History Sertraline [Zoloft] 25 mg PO DAILY PRN 08/19/23 08/19/23 History amLODIPine [Norvasc] 5 mg PO DAILY 08/19/23 08/19/23 History cloNIDine HCL [Catapres] 0.2 mg PO DAILY PRN 08/19/23 08/19/23 History hydrALAZINE HCL [Apresoline] 100 mg PO DAILY PRN 08/19/23 08/19/23 History Allergies Allergy/AdvReac Type Severity Reaction Status Date / Time clindamycin Allergy Anaphylaxis Verified 08/19/23 10:55 Physical Exam Vitals: Vital Signs Temp Pulse Resp BP Pulse Ox 08/19/23 11:02 97.8 F 115 H 22 161/79 92 L 08/19/23 10:00 90 20 165/85 98 08/19/23 09:06 110 H 20 178/90 92 L 08/19/23 08:01 20 08/19/23 07:27 112 H 20 171/90 95 08/19/23 07:23 97.7 F 118 H 20 162/83 96 Intake and Output 08/18/23 08/19/23 08/19/23 22:59 06:59 14:59 Other: Weight 93.44 kg Results - Lab Results Most recent lab results Calcium 7.6 mg/dL (8.4-10.2) L 08/19/23 07:50 Phosphorus 5.8 mg/dL (2.5-4.5) H 08/19/23 07:50 Magnesium 2.1 mg/dL (1.6-2.3) 08/19/23 07:50 08/19/23 07:50 08/19/23 07:50 Assessment and Plan Plan: Assessment: 1. End-stage renal disease maintained on hemodialysis on Monday schedule via left upper extremity AV fistula. 2. Noncompliance with hemodialysis. 3. Volume overload. 4. Diabetes mellitus. 5. Metabolic acidosis secondary to chronic kidney disease. Expect improvement postdialysis. 6. Hypertension with chronic kidney disease. Plan: Hemodialysis today with goal 4 L ultrafiltration. Check phosphorus level. Resume amlodipine and hydralazine. Low-salt diet and 1500 cc fluid restriction. Stressed compliance with medications and hemodialysis treatments outpatient. Thank you for the consultation. I will continue to follow the patient with you during his hospital stay.
[2023-08-19 12:45] LABS: Glucose,Whole Blood 171 mg/dL (70-110)
[2023-08-19] MEDS: amLODIPine 5 MG TAB PO SCH (12:50)
[2023-08-19] MEDS: hydrALAZINE HCL 50 MG TAB PO SCH (12:50)
[2023-08-19] MEDS: INSULIN ASPART (NovoLOG) 100 UNIT/ML VIAL SQ SCH (12:52)
[2023-08-19] MEDS ORDERED: SERTRALINE 25 MG TAB PO PRN (16:08)
[2023-08-19 18:30] LABS: Glucose,Whole Blood 170 mg/dL (70-110)
[2023-08-19] MEDS: HEPARIN SODIUM,PORCINE 5,000 UNIT/ML 1 ML VIAL SQ SCH (18:40)
[2023-08-19] MEDS: CALCIUM CARBONATE 500 MG CHEWABLE PO SCH (18:40)
[2023-08-19 20:49] LABS: Glucose,Whole Blood 273 mg/dL (70-110)
[2023-08-19] MEDS ORDERED: NON FORMULARY DRUG (Hydralazine Hcl [Apresoline] 100 MG Tablet) PO SCH (21:00)
[2023-08-19] MEDS: PANTOPRAZOLE 40 MG TABLET PO SCH (22:08)
[2023-08-19] MEDS: ATORVASTATIN 80 MG TAB PO SCH (22:08)
[2023-08-19] MEDS: cloNIDine HCL 0.2 MG TAB PO SCH (22:08)
[2023-08-19] MEDS: LATANOPROST 0.005% OPHTH DROPS 2.5 ML BTL BOTH EYES SCH (22:27)
[2023-08-20 06:09] LABS: Glucose,Whole Blood 181 mg/dL (70-110)
[2023-08-20 06:47] LABS: Basophils % (A) 1 %; Eosinophils # (A) 0.3 k/uL (0-0.7); Eosinophils % (A) 4 %; HCT 30.2 % (39.0-53.0); HGB 9.5 gm/dL (13.0-17.5); Hypochromasia Slight; Lymphocytes # (A) 0.8 k/uL (1.0-4.8); Lymphocytes % (A) 10 %; MCH 30.6 pg (25.0-35.0); MCHC 31.3 g/dL (31.0-37.0); MCV 97.6 fL (80.0-100.0); Mean Platelet Volume 7.3; Monocytes # (A) 0.6 k/uL (0-1.0); Monocytes % (A) 8 %; Neutrophils # (A) 5.9 k/uL (1.3-7.7); Neutrophils % (A) 75 %; Platelet Count 230 k/uL (150-450); RDW 14.2 % (11.5-15.5); WBC 7.8 k/uL (3.8-10.6)
[2023-08-20 07:00] LABS: African American GFR (CKD) 16 (>60 ml/min/1.73 sqM); Anion Gap 10 mmol/L; Blood Urea Nitrogen 56 mg/dL (9-20); Calcium 7.2 mg/dL (8.4-10.2); Carbon Dioxide 25 mmol/L (22-30); Chloride 104 mmol/L (98-107); Glucose 155 mg/dL (74-99); Non-African American GFR(CKD) 14 (>60 ml/min/1.73 sqM); Phosphorus 4.7 mg/dL (2.5-4.5); Potassium 4.3 mmol/L (3.5-5.1); Sodium 139 mmol/L (137-145)
[2023-08-20] MEDS: IPRATROPIUM 0.5 MG/2.5 ML NEBU INHALATION SCH (07:41)
[2023-08-20] MEDS: DORZOLAMIDE HCL 2% DROPS 10 ML BTL BOTH EYES SCH (09:00)
[2023-08-20] MEDS: LOSARTAN 50 MG TAB PO SCH (09:00)
--- NOTE | 2023-08-20 11:30 | P.PN ---
Subjective Patient is seen in follow-up for end-stage renal disease. He is maintained on hemodialysis on Monday schedule. Tolerated 4 L ul trafiltration yesterday. Feels better today. No chest pain or shortness of breath. Vital signs are stable. General: No acute distress. HEENT: Head exam is unremarkable. On nasal cannula. LUNGS: No audible rhonchi or wheezes. HEART: Rate and Rhythm are regular. ABDOMEN: Nontender. EXTREMITITES: 1+ edema. Objective - Vital Signs Vital signs: Vital Signs Temp 98.1 F 08/20/23 07:30 Pulse 85 08/20/23 07:55 Resp 16 08/20/23 07:30 BP 143/67 08/20/23 07:30 Pulse Ox 96 08/20/23 07:30 FiO2 Intake & Output 08/19/23 08/20/23 08/20/23 18:59 06:59 18:59 Intake Total 400 354 Output Total 4900 Balance -4500 354 Weight 93.44 kg 93.44 kg Intake: Oral 354 Hemodialysis 400 Output: Urine 500 Hemodialysis 4400 Other: Voiding Method Urinal Urinal - Labs CBC & Chem 7: 08/20/23 06:06 08/20/23 06:06 Labs: Abnormal Lab Results - Last 24 Hours (Table) 08/19/23 08/19/23 08/19/23 Range/Units 12:44 18:28 20:47 RBC (4.30-5.90) m/uL Hgb (13.0-17.5) gm/dL Hct (39.0-53.0) % Lymphocytes # (1.0-4.8) k/uL BUN (9-20) mg/dL Creatinine (0.66-1.25) mg/dL Glucose (74-99) mg/dL POC Glucose (mg/dL) 171 H 170 H 273 H (70-110) mg/dL Hemoglobin A1c (<=6.0) % Calcium (8.4-10.2) mg/dL Phosphorus (2.5-4.5) mg/dL 08/20/23 08/20/23 08/20/23 Range/Units 06:06 06:06 06:06 RBC 3.10 L (4.30-5.90) m/uL Hgb 9.5 L (13.0-17.5) gm/dL Hct 30.2 L (39.0-53.0) % Lymphocytes # 0.8 L (1.0-4.8) k/uL BUN 56 H (9-20) mg/dL Creatinine 4.10 H (0.66-1.25) mg/dL Glucose 155 H (74-99) mg/dL POC Glucose (mg/dL) (70-110) mg/dL Hemoglobin A1c 6.3 H (<=6.0) % Calcium 7.2 L (8.4-10.2) mg/dL Phosphorus 4.7 H (2.5-4.5) mg/dL 08/19/ Range/Units 06:07 RBC (4.30-5.90) m/uL Hgb (13.0-17.5) gm/dL Hct (39.0-53.0) % Lymphocytes # (1.0-4.8) k/uL BUN (9-20) mg/dL Creatinine (0.66-1.25) mg/dL Glucose (74-99) mg/dL POC Glucose (mg/dL) 181 H (70-110) mg/dL Hemoglobin A1c (<=6.0) % Calcium (8.4-10.2) mg/dL Phosphorus (2.5-4.5) mg/dL Assessment and Plan Plan: Assessment: 1. End-stage renal disease maintained on hemodialysis on Monday schedule via left upper extremity AV fistula. 2. Noncompliance with hemodialysis. 3. Volume overload. Improved with ultrafiltration. 4. Diabetes mellitus. 5. Metabolic acidosis secondary to chronic kidney disease. Improved postdialysis. 6. Hypertension with chronic kidney disease. Stable. 7. Anemia of chronic kidney disease. Plan: Extra hemodialysis treatment tomorrow mostly for ultrafiltration. Phosphorus level 4.7 today. Low-salt diet and 1500 cc fluid restriction. Check iron studies. Stressed compliance with medications and hemodialysis treatments outpatient. Potential discharge after dialysis tomorrow.
[2023-08-20 12:25] LABS: Glucose,Whole Blood 187 mg/dL (70-110)
--- NOTE | 2023-08-20 13:43 | P.PN ---
Subjective Progress Note Date: 08/20/23 Hospital Course: 67-year-old male with history of ESRD on hemodialysis TTS, hypertension, insul in-dependent diabetes, and dyslipidemia presenting with shortness of breath. In the ED, temperature was 97.7, pulse 118, respiratory rate 20, blood pressure 162/83, saturating at 96% on room air. WBC 11, hemoglobin 10.7, bicarb 17, anion gap 16, BUN 96, creatinine 6.4, phosphorus 5.8, calcium 7.6. Urinalysis shows negative nitrites, small leukocyte esterase, 3+ protein, 2+ glucose. Chest x-ray independently interpreted, shows interstitial opacities bilateral. EKG independently interpreted, shows sinus tachycardia. Patient admitted for hypervolemia in the setting of ESRD and missed hemodialysis sessions. Nephrology consulted. Improved after he yesterday's hemodialysis session Subjective: Patient seen and examined at bedside. No acute events overnight. Pertinent positives and negatives as discussed above, a complete review of systems was performed and all other systems are negative. Vitals Signs Reviewed. General: nontoxic, no distress, appears at stated age Derm: warm, dry Head: atraumatic, normocephalic, symmetric Eyes: EOMI, no lid lag, anicteric sclera, pupils equal round reactive to light ENT: Nose and ears atraumatic Neck: No thyromegaly, supple Mouth: no lip lesion, mucus membranes moist Cardiovascular: S1S2 reg, no murmur, 2+ pitting lower extremity edema Lungs: Bibasilar rales, no wheeze, no accessory muscle use Abdominal: soft, nontender to palpation, no guarding, no appreciable organomegaly Ext: no gross muscle atrophy, muscle strength muscle strength 5 out of 5 in all 4 extremities, no contractures, left arm fistula with good thrill and bruit Neuro: CN II-XII grossly intact Psych: Alert, oriented, appropriate affect Data Reviewed Today: Pertinent Labs: WBC 7.8, hemoglobin 9.5, creatinine 4.1, bicarb 25, blood sugars range between 1 55-2 73, phosphorus 4.7, calcium 7.2, A1c 6.3 Imaging: No new imaging Assessment and Plan: Hypervolemia secondary to missed hemodialysis sessions resolving ESRD on hemodialysis TTS Hypocalcemia Hyperphosphatemia Mild anion gap metabolic acidosis -Discussed management with nephrology, likely another session of hemodialysis tomorrow morning and can be discharged home later Insulin-dependent diabetes, A1c 6.3 - Sliding scale insulin, monitor for hypoglycemia Chronic: COPD Dyslipidemia Hypertension DVT ppx: Subcu heparin Code status: Full code Anticipated discharge place: Home Anticipated discharge time: Tomorrow Objective - Vital Signs Vital signs: Vital Signs Temp 98.1 F 08/20/23 07:30 Pulse 96 08/20/23 11:45 Resp 16 08/20/23 07:30 BP 143/67 08/20/23 07:30 Pulse Ox 96 08/20/23 07:30 FiO2 Intake & Output 08/19/23 08/20/23 08/20/23 18:59 06:59 18:59 Intake Total 400 354 Output Total 4900 Balance -4500 354 Weight 93.44 kg 93.44 kg Intake: Oral 354 Hemodialysis 400 Output: Urine 500 Hemodialysis 4400 Other: Voiding Method Urinal Urinal - Labs CBC & Chem 7: 08/20/23 06:06 08/20/23 06:06 Labs: Abnormal Lab Results - Last 24 Hours (Table) 08/19/23 08/19/23 08/20/23 Range/Units 18:28 20:47 06:06 RBC (4.30-5.90) m/uL Hgb (13.0-17.5) gm/dL Hct (39.0-53.0) % Lymphocytes # (1.0-4.8) k/uL BUN (9-20) mg/dL Creatinine (0.66-1.25) mg/dL Glucose (74-99) mg/dL POC Glucose (mg/dL) 170 H 273 H (70-110) mg/dL Hemoglobin A1c 6.3 H (<=6.0) % Calcium (8.4-10.2) mg/dL Phosphorus (2.5-4.5) mg/dL 08/20/23 08/20/23 08/20/23 Range/Units 06:06 06:06 06:07 RBC 3.10 L (4.30-5.90) m/uL Hgb 9.5 L (13.0-17.5) gm/dL Hct 30.2 L (39.0-53.0) % Lymphocytes # 0.8 L (1.0-4.8) k/uL BUN 56 H (9-20) mg/dL Creatinine 4.10 H (0.66-1.25) mg/dL Glucose 155 H (74-99) mg/dL POC Glucose (mg/dL) 181 H (70-110) mg/dL Hemoglobin A1c (<=6.0) % Calcium 7.2 L (8.4-10.2) mg/dL Phosphorus 4.7 H (2.5-4.5) mg/dL 03/24/24 Range/Units 12:24 RBC (4.30-5.90) m/uL Hgb (13.0-17.5) gm/dL Hct (39.0-53.0) % Lymphocytes # (1.0-4.8) k/uL BUN (9-20) mg/dL Creatinine (0.66-1.25) mg/dL Glucose (74-99) mg/dL POC Glucose (mg/dL) 187 H (70-110) mg/dL Hemoglobin A1c (<=6.0) % Calcium (8.4-10.2) mg/dL Phosphorus (2.5-4.5) mg/dL
[2023-08-20 17:28] LABS: Glucose,Whole Blood 219 mg/dL (70-110)
[2023-08-20 20:19] LABS: Glucose,Whole Blood 256 mg/dL (70-110)
[2023-08-21 05:54] LABS: Glucose,Whole Blood 220 mg/dL (70-110)
[2023-08-21 07:51] LABS: % Iron Saturation 22.65 (15.00-50.00)
[2023-08-21 08:32] LABS: Basophils # (A) 0.05 X 10*3/uL (0.00-0.10); Basophils % (A) 0.6 %; Eosinophils # (A) 0.44 X 10*3/uL (0.04-0.35); Eosinophils % (A) 5.5 %; HCT 28.2 % (39.6-50.0); HGB 8.8 g/dL (13.0-17.0); Lymphocytes # (A) 0.89 X 10*3/uL (0.90-5.00); Lymphocytes % (A) 11.1 %; MCH 29.8 pg (27.0-32.0); MCHC 31.2 g/dL (32.0-37.0); MCV 95.6 FL (80.0-97.0); Mean Platelet Volume 9.7 FL (9.5-12.2); Monocytes # (A) 0.81 X 10*3/uL (0.20-1.00); Monocytes % (A) 10.1 %; NRBC Per 100 WBC 0 X 10*3/uL (0.00-0.01); Neutrophils # (A) 5.81 X 10*3/uL (1.80-7.70); Neutrophils % (A) 72.1 %; Platelet Count 227 X 10*3/uL (140-440); RBC 2.95 X 10*6/uL (4.40-5.60); RDW 13.5 % (11.5-14.5); WBC 8.05 X 10*3/uL (4.50-10.00)
[2023-08-21 08:40] LABS: BUN/Creat Ratio 12.98 Ratio (12.00-20.00); Blood Urea Nitrogen 64.9 mg/dL (9.0-27.0); Carbon Dioxide 24.1 mmol/L (21.6-31.8); Chloride 104 mmol/L (96-109); Glucose 208 mg/dL (70-110); Potassium 4.8 mmol/L (3.5-5.5); Sodium 141 mmol/L (135-145)
--- NOTE | 2023-08-21 11:26 | P.PN ---
Subjective Patient is seen in follow-up for end-stage renal disease. He is maintained on hemodialysis on Monday schedule. Currently seen while undergoing hemodialysis. No active complaints. No chest pain or shortness of breath. Vital signs are stable. General: No acute distress. HEENT: Head exam is unremarkable. LUNGS: No audible rhonchi or wheezes. HEART: Rate and Rhythm are regular. ABDOMEN: Nontender. EXTREMITITES: 1+ edema. Objective - Vital Signs Vital signs: Vital Signs Temp 98.1 F 08/21/23 07:00 Pulse 84 08/21/23 09:07 Resp 18 08/21/23 07:00 BP 167/82 08/21/23 07:00 Pulse Ox 95 08/21/23 07:00 FiO2 Intake & Output 08/20/23 08/21/23 08/21/23 18:59 06:59 18:59 Intake Total 590 240 118 Output Total 475 600 Balance 115 -360 118 Intake: Oral 590 240 118 Output: Urine 475 600 Other: Voiding Method Urinal Urinal - Labs CBC & Chem 7: 08/21/23 05:46 08/21/23 05:46 Labs: Abnormal Lab Results - Last 24 Hours (Table) 08/20/23 08/20/23 08/20/23 Range/Units 06:06 12:24 17:26 RBC (4.40-5.60) X 10*6/uL Hgb (13.0-17.0) g/dL Hct (39.6-50.0) % MCHC (32.0-37.0) g/dL Immature Gran # (0.00-0.04) X 10*3/uL Lymphocytes # (0.90-5.00) X 10*3/uL Eosinophils # (0.04-0.35) X 10*3/uL Anion Gap (4.00-12.00) mmol/L BUN (9.0-27.0) mg/dL Creatinine (0.6-1.5) mg/dL Est GFR (CKD-EPI) (>=60) Glucose (70-110) mg/dL POC Glucose (mg/dL) 187 H 219 H (70-110) mg/dL Calcium (8.7-10.3) mg/dL Iron 41 L (65-175) UG/DL TIBC 181 L (228-460) UG/DL Transferrin 129.0 L (204.0-354.0) mg/dL Ferritin 889.0 H (22.0-322.0) ng/mL 08/20/23 08/21/23 08/21/23 Range/Units 20:10 05:46 05:46 RBC 2.95 L (4.40-5.60) X 10*6/uL Hgb 8.8 L (13.0-17.0) g/dL Hct 28.2 L (39.6-50.0) % MCHC 31.2 L (32.0-37.0) g/dL Immature Gran # 0.05 H (0.00-0.04) X 10*3/uL Lymphocytes # 0.89 L (0.90-5.00) X 10*3/uL Eosinophils # 0.44 H (0.04-0.35) X 10*3/uL Anion Gap 12.90 H (4.00-12.00) mmol/L BUN 64.9 H (9.0-27.0) mg/dL Creatinine 5.0 H (0.6-1.5) mg/dL Est GFR (CKD-EPI) 12 L (>=60) Glucose 208 H (70-110) mg/dL POC Glucose (mg/dL) 256 H (70-110) mg/dL Calcium 7.0 L (8.7-10.3) mg/dL Iron (65-175) UG/DL TIBC (228-460) UG/DL Transferrin (204.0-354.0) mg/dL Ferritin (22.0-322.0) ng/mL 08/21/23 Range/Units 05:50 RBC (4.40-5.60) X 10*6/uL Hgb (13.0-17.0) g/dL Hct (39.6-50.0) % MCHC (32.0-37.0) g/dL Immature Gran # (0.00-0.04) X 10*3/uL Lymphocytes # (0.90-5.00) X 10*3/uL Eosinophils # (0.04-0.35) X 10*3/uL Anion Gap (4.00-12.00) mmol/L BUN (9.0-27.0) mg/dL Creatinine (0.6-1.5) mg/dL Est GFR (CKD-EPI) (>=60) Glucose (70-110) mg/dL POC Glucose (mg/dL) 220 H (70-110) mg/dL Calcium (8.7-10.3) mg/dL Iron (65-175) UG/DL TIBC (228-460) UG/DL Transferrin (204.0-354.0) mg/dL Ferritin (22.0-322.0) ng/mL Assessment and Plan Plan: Assessment: 1. End-stage renal disease maintained on hemodialysis on Monday schedule via left upper extremity AV fistula. 2. Noncompliance with hemodialysis. 3. Volume overload. Improved with ultrafiltration. 4. Diabetes mellitus. 5. Metabolic acidosis secondary to chronic kidney disease. Improved postdialysis. 6. Hypertension with chronic kidney disease. Stable. Did not receive meds this morning. 7. Anemia of chronic kidney disease. Mild iron deficiency noted. Plan: Currently seen while undergoing hemodialysis. Another treatment tomorrow per his outpatient schedule. IV iron x 1 dose today. Phosphorus level 4.7 today. Low-salt diet and 1500 cc fluid restriction. NICKOLAS will be started outpatient. Stressed compliance with medications and hemodialysis treatments outpatient. Potential discharge after dialysis today.
[2023-08-21 12:02] LABS: Glucose,Whole Blood 203 mg/dL (70-110)
[2023-08-21] MEDS: SODIUM FERRIC GLUCONAT-SUCROSE 125 MG in SODIUM CHLORIDE 0.9% 100 ML IVPB ONE (12:36)
--- NOTE | 2023-08-21 14:04 | P.DS ---
Providers Date of admission: 08/19/23 08:40 Expected date of discharge: 08/21/23 Attending physician: Brody Meyers MD Consults: 08/19/23 08:36 Consult Physician Routine Consulting Provider: Brad Cervantes Consult Reason/Comments: ESRD Do you want consulting provider notified?: Already Contacted Primary care physician: Stated None Hospital Course: Discharge Diagnosis: Hypervolemia secondary to missed hemodialysis sessions ESRD on hemodialysis TTS Hypocalcemia Hyperphosphatemia Mild anion gap metabolic acidosis Insulin-dependent diabetes, A1c 6.3 Hospital Course: 67-year-old male with history of ESRD on hemodialysis TTS, hypertension, insulin-dependent diabetes, and dyslipidemia presenting with shortness of breath. In the ED, temperature was 97.7, pulse 118, respiratory rate 20, blood pressure 162/83, saturating at 96% on room air. WBC 11, hemoglobin 10.7, bicarb 17, anion gap 16, BUN 96, creatinine 6.4, phosphorus 5.8, calcium 7.6. Urinalysis shows negative nitrites, small leukocyte esterase, 3+ protein, 2+ glucose. Chest x-ray independently interpreted, shows interstitial opacities bilateral. EKG independently interpreted, shows sinus tachycardia. Patient admitted for hypervolemia in the setting of ESRD and missed hemodialysis sessions. Nephrology consulted. Improved with hemodialysis. Patient to resume hemodialysis outpatient. Follow-up with PCP and nephrology. Patient seen and examined at bedside. Vital signs reviewed and stable. General: Nontoxic, no distress, appears at stated age Derm: Warm, dry Head: Atraumatic, normocephalic, symmetric Eyes: EOMI, no lid lag, anicteric sclera Mouth: No lip lesion, mucus membranes moist Cardiovascular: S1S2 reg, no murmur Lungs: CTA bilateral, no rhonchi, no rales, no accessory muscle use Abdominal: Soft, nontender to palpation, no guarding, no appreciable organomegaly Ext: No gross muscle atrophy, no edema, no contractures, left arm fistula with good thrill and bruit Neuro: CN II-XI grossly intact, no focal neuro deficits Psych: Alert, oriented, appropriate affect A total of 33 minutes of time were spent preparing this complex discharge summary. Patient was discharged on 08/21/2023 at 1045 Patient Condition at Discharge: Stable Plan - Discharge Summary New Discharge Prescriptions: Continue Tiotropium [place] [Spiriva Respimat] 2 puff INHALATION RT-DAILY Latanoprost/Pf [Latanoprost 0.005% Eye Drop] 1 drop BOTH EYES HS hydrALAZINE HCL [Apresoline] 100 mg PO BID Insulin Aspart Prot/Insuln Asp [NovoLOG MIX 70-30 Flexpen] 1 - 90 unit SQ BID-W/MEALS cloNIDine HCL [Catapres] 0.2 mg PO BID Dorzolamide 2% [Trusopt 2%] 1 drop BOTH EYES DAILY Atorvastatin Calcium [Lipitor] 80 mg PO HS Calcium Carbonate [Tums] 500 mg PO TID-W/MEALS cloNIDine HCL [Catapres] 0.2 mg PO DAILY PRN PRN Reason: high BP Omeprazole [PriLOSEC] 20 mg PO BID amLODIPine [Norvasc] 5 mg PO DAILY hydrALAZINE HCL [Apresoline] 100 mg PO DAILY PRN PRN Reason: high bp Losartan [Cozaar] 50 mg PO DAILY Sertraline [Zoloft] 25 mg PO DAILY PRN PRN Reason: mood Discharge Medication List Tiotropium [place] [Spiriva Respimat] 2 puff INHALATION RT-DAILY 11/03/14 [History] Latanoprost/Pf [Latanoprost 0.005% Eye Drop] 1 drop BOTH EYES HS 05/23/19 [History] Atorvastatin Calcium [Lipitor] 80 mg PO HS 04/15/22 [History] Dorzolamide 2% [Trusopt 2%] 1 drop BOTH EYES DAILY 04/15/22 [History] Insulin Aspart Prot/Insuln Asp [NovoLOG MIX 70-30 Flexpen] 1 - 90 unit SQ BID- W/MEALS 04/15/22 [History] cloNIDine HCL [Catapres] 0.2 mg PO BID 04/15/22 [History] hydrALAZINE HCL [Apresoline] 100 mg PO BID 04/15/22 [History] Calcium Carbonate [Tums] 500 mg PO TID-W/MEALS 08/19/23 [History] Losartan [Cozaar] 50 mg PO DAILY 08/19/23 [History] Omeprazole [PriLOSEC] 20 mg PO BID 08/19/23 [History] Sertraline [Zoloft] 25 mg PO DAILY PRN 08/19/23 [History] amLODIPine [Norvasc] 5 mg PO DAILY 08/19/23 [History] cloNIDine HCL [Catapres] 0.2 mg PO DAILY PRN 08/19/23 [History] hydrALAZINE HCL [Apresoline] 100 mg PO DAILY PRN 08/19/23 [History] Follow up Appointment(s)/Referral(s): [facility] [NON-STAFF] - As Needed ([id number] @ 0700 AM) Levar Tomas MD [REFERRING] - 1 Week None,Stated [Primary Care Provider] - 1-2 days Brad Cervantes DO [STAFF PHYSICIAN] - 1 Week Patient Instructions/Handouts: Dialysis Diet (DC), End Stage Kidney Disease (DC) Activity/Diet/Wound Care/Special Instructions: Please see PCP and nephrology. Please go to your dialysis session tomorrow. Discharge Disposition: HOME SELF-CARE
[2023-08-21] MEDS: ONDANSETRON 4 MG/2 ML VIAL IVP STA ×2 (14:58→23:39)
[2023-08-21 17:30] LABS: Glucose,Whole Blood 329 mg/dL (70-110)
[2023-08-21] MEDS: INSULIN ASPART (NovoLOG) 100 UNIT/ML VIAL SQ ONE (18:16)
[2023-08-21 20:37] LABS: Glucose,Whole Blood 225 mg/dL (70-110)
[2023-08-21] MEDS: INSULIN DETEMIR (LEVEMIR) 100 UNIT/ML SYR SQ SCH (21:30)
[2023-08-22 06:16] LABS: Glucose,Whole Blood 204 mg/dL (70-110)
[2023-08-22 08:45] VITALS: BP 122/55; PULSE 71; RESP 18; TEMP 97.5
[2023-08-22 08:45] LABS: African American GFR (CKD) 17 (>60 ml/min/1.73 sqM); Anion Gap 9 mmol/L; Blood Urea Nitrogen 49 mg/dL (9-20); Carbon Dioxide 25 mmol/L (22-30); Chloride 107 mmol/L (98-107); Glucose 215 mg/dL (74-99); Magnesium 1.9 mg/dL (1.6-2.3); Non-African American GFR(CKD) 15 (>60 ml/min/1.73 sqM); Potassium 4.9 mmol/L (3.5-5.1); Sodium 141 mmol/L (137-145)
--- NOTE | 2023-08-22 10:40 | P.PN ---
Subjective Patient is seen in follow-up for end-stage renal disease. He is maintained on hemodialysis on Monday schedule. Currently seen while undergoing hemodialysis. No active complaints. No chest pain or shortness of breath. Vomited yesterday but none overnight or today so far. Vital signs are stable. General: No acute distress. HEENT: Head exam is unremarkable. LUNGS: No audible rhonchi or wheezes. HEART: Rate and Rhythm are regular. ABDOMEN: Nontender. EXTREMITITES: Trace edema. Objective - Vital Signs Vital signs: Vital Signs Temp 97.5 F L 08/22/23 08:26 Pulse 71 08/22/23 08:26 Resp 18 08/22/23 08:26 BP 122/55 08/22/23 08:26 Pulse Ox 96 08/22/23 08:26 FiO2 Intake & Output 08/21/23 08/22/23 08/22/23 18:59 06:59 18:59 Intake Total 518 Output Total 3925 200 Balance -3407 -200 Intake: Oral 118 Hemodialysis 400 Output: Urine 925 200 Hemodialysis 3000 Other: Voiding Method Urinal Urinal Urinal - Labs CBC & Chem 7: 08/21/23 05:46 08/22/23 07:43 Labs: Abnormal Lab Results - Last 24 Hours (Table) 08/21/23 08/21/23 08/21/23 Range/Units 12:01 17:29 20:35 BUN (9-20) mg/dL Creatinine (0.66-1.25) mg/dL Glucose (74-99) mg/dL POC Glucose (mg/dL) 203 H 329 H 225 H (70-110) mg/dL Calcium (8.4-10.2) mg/dL 08/22/23 08/22/23 Range/Units 06:14 07:43 BUN 49 H (9-20) mg/dL Creatinine 3.95 H (0.66-1.25) mg/dL Glucose 215 H (74-99) mg/dL POC Glucose (mg/dL) 204 H (70-110) mg/dL Calcium 7.0 L (8.4-10.2) mg/dL Assessment and Plan Plan: Assessment: 1. End-stage renal disease maintained on hemodialysis on Monday schedule via left upper extremity AV fistula. 2. Noncompliance with hemodialysis. 3. Volume overload. Improved with ultrafiltration. 4. Diabetes mellitus. 5. Metabolic acidosis secondary to chronic kidney disease. Improved post dialysis. 6. Hypertension with chronic kidney disease. Controlled. 7. Anemia of chronic kidney disease. Mild iron deficiency noted. Plan: Currently seen while undergoing hemodialysis. Next treatment . Status post IV iron yesterday. Phosphorus level 4.7 this admission. Low-salt diet and 1500 cc fluid restriction. NICKOLAS will be started outpatient. Stressed compliance with medications and hemodialysis treatments outpatient. Potential discharge after dialysis today.
[2023-08-22] MEDS: ONDANSETRON 4 MG/2 ML VIAL IVP PRN (12:04)
[2023-08-22 12:10] LABS: Glucose,Whole Blood 131 mg/dL (70-110)
--- NOTE | 2023-08-22 13:01 | P.DS ---
Providers Date of admission: 08/19/23 08:40 Expected date of discharge: 08/22/23 Attending physician: Brody Meyers MD Consults: 08/19/23 08:36 Consult Physician Routine Consulting Provider: Brad Cervantes Consult Reason/Comments: ESRD Do you want consulting provider notified?: Already Contacted Primary care physician: Stated None Hospital Course: Discharge Diagnosis: Hypervolemia secondary to missed hemodialysis sessions ESRD on hemodialysis TTS Hypocalcemia Hyperphosphatemia Mild anion gap metabolic acidosis Insulin-dependent diabetes, A1c 6.3 Hospital Course: 67-year-old male with history of ESRD on hemodialysis TTS, hypertension, insulin-dependent diabetes, and dyslipidemia presenting with shortness of breath. In the ED, temperature was 97.7, pulse 118, respiratory rate 20, blood pressure 162/83, saturating at 96% on room air. WBC 11, hemoglobin 10.7, bicarb 17, anion gap 16, BUN 96, creatinine 6.4, phosphorus 5.8, calcium 7.6. Urinalysis shows negative nitrites, small leukocyte esterase, 3+ protein, 2+ glucose. Chest x-ray independently interpreted, shows interstitial opacities bilateral. EKG independently interpreted, shows sinus tachycardia. Patient admitted for hypervolemia in the setting of ESRD and missed hemodialysis sessions. Nephrology consulted. Improved with hemodialysis. Patient to resume hemodialysis outpatient. Follow-up with PCP and nephrology. Patient seen and examined at bedside. Vital signs reviewed and stable. General: Nontoxic, no distress, appears at stated age Derm: Warm, dry Head: Atraumatic, normocephalic, symmetric Eyes: EOMI, no lid lag, anicteric sclera Mouth: No lip lesion, mucus membranes moist Cardiovascular: S1S2 reg, no murmur Lungs: CTA bilateral, no rhonchi, no rales, no accessory muscle use Abdominal: Soft, nontender to palpation, no guarding, no appreciable organomegaly Ext: No gross muscle atrophy, no edema, no contractures, left arm fistula with good thrill and bruit Neuro: CN II-XI grossly intact, no focal neuro deficits Psych: Alert, oriented, appropriate affect A total of 33 minutes of time were spent preparing this complex discharge summary. Patient was discharged on 08/22/2023 at 0956. Patient Condition at Discharge: Stable Plan - Discharge Summary New Discharge Prescriptions: Continue Tiotropium [place] [Spiriva Respimat] 2 puff INHALATION RT-DAILY Latanoprost/Pf [Latanoprost 0.005% Eye Drop] 1 drop BOTH EYES HS hydrALAZINE HCL [Apresoline] 100 mg PO BID Insulin Aspart Prot/Insuln Asp [NovoLOG MIX 70-30 Flexpen] 1 - 90 unit SQ BID-W/MEALS cloNIDine HCL [Catapres] 0.2 mg PO BID Dorzolamide 2% [Trusopt 2%] 1 drop BOTH EYES DAILY Atorvastatin Calcium [Lipitor] 80 mg PO HS Calcium Carbonate [Tums] 500 mg PO TID-W/MEALS cloNIDine HCL [Catapres] 0.2 mg PO DAILY PRN PRN Reason: high BP Omeprazole [PriLOSEC] 20 mg PO BID amLODIPine [Norvasc] 5 mg PO DAILY hydrALAZINE HCL [Apresoline] 100 mg PO DAILY PRN PRN Reason: high bp Losartan [Cozaar] 50 mg PO DAILY Sertraline [Zoloft] 25 mg PO DAILY PRN PRN Reason: mood Discharge Medication List Tiotropium [place] [Spiriva Respimat] 2 puff INHALATION RT-DAILY 11/03/14 [History] Latanoprost/Pf [Latanoprost 0.005% Eye Drop] 1 drop BOTH EYES HS 05/23/19 [History] Atorvastatin Calcium [Lipitor] 80 mg PO HS 04/15/22 [History] Dorzolamide 2% [Trusopt 2%] 1 drop BOTH EYES DAILY 04/15/22 [History] Insulin Aspart Prot/Insuln Asp [NovoLOG MIX 70-30 Flexpen] 1 - 90 unit SQ BID- W/MEALS 04/15/22 [History] cloNIDine HCL [Catapres] 0.2 mg PO BID 04/15/22 [History] hydrALAZINE HCL [Apresoline] 100 mg PO BID 04/15/22 [History] Calcium Carbonate [Tums] 500 mg PO TID-W/MEALS 08/19/23 [History] Losartan [Cozaar] 50 mg PO DAILY 08/19/23 [History] Omeprazole [PriLOSEC] 20 mg PO BID 08/19/23 [History] Sertraline [Zoloft] 25 mg PO DAILY PRN 08/19/23 [History] amLODIPine [Norvasc] 5 mg PO DAILY 08/19/23 [History] cloNIDine HCL [Catapres] 0.2 mg PO DAILY PRN 08/19/23 [History] hydrALAZINE HCL [Apresoline] 100 mg PO DAILY PRN 08/19/23 [History] Follow up Appointment(s)/Referral(s): [facility] [[facility]-STAFF] - As Needed ([id number] @ 0700 AM) Levar Tomas MD [REFERRING] - 1 Week None,Stated [Primary Care Provider] - 1-2 days Brad Cervantes DO [STAFF PHYSICIAN] - 08/30/23 10:40 am Patient Instructions/Handouts: Dialysis Diet (DC), End Stage Kidney Disease (DC) Activity/Diet/Wound Care/Special Instructions: Please see PCP and nephrology. Please go to your dialysis session on . Discharge Disposition: HOME SELF-CARE
== END 2023-08-22 13:37 | disposition home or self-care (01) ==
LOC: EC 07:14 → 6NMEDSUR 08:40
PROVIDERS: ADMIT Student in an Organized Health Care Education/Training Program; ATTEND Student in an Organized Health Care Education/Training Program
DX: E87.70 Fluid overload, unspecified (principal); E83.51 Hypocalcemia; E83.39 Other disorders of phosphorus metabolism; I12.0 Hypertensive chronic kidney disease with stage 5 chronic kidney disease or end stage renal disease; N18.6 End stage renal disease; E11.22 Type 2 diabetes mellitus with diabetic chronic kidney disease; D63.1 Anemia in chronic kidney disease; D72.829 Elevated white blood cell count, unspecified; J44.9 Chronic obstructive pulmonary disease, unspecified; E78.5 Hyperlipidemia, unspecified; G47.30 Sleep apnea, unspecified; I25.2 Old myocardial infarction; Z87.891 Personal history of nicotine dependence; Z91.158 Patient's noncompliance with renal dialysis for other reason; Z99.2 Dependence on renal dialysis; Z79.4 Long term (current) use of insulin; Z79.51 Long term (current) use of inhaled steroids; Z79.899 Other long term (current) drug therapy; Z88.1 Allergy status to other antibiotic agents
CPT/HCPCS: 96376 ×2; 96365; 96372 ×3; 96375; 99285; 36415; 94640 ×3; 93005; 80053; 80048 ×3; 82728; 83540; 83550; 83735 ×2; 84100 ×2; 85025 ×3; 81001; 83036; 71046; G0378 ×4; J1644 ×3; J2405 ×2; J2916; 90935

== ENCOUNTER 2023-11-05 09:48 | Emergency (ER) | payer MEDICARE, OTHER ==
[2023-11-05 10:51] LABS: Basophils % (A) 1 %; Eosinophils # (A) 0.2 k/uL (0-0.7); Eosinophils % (A) 3 %; HCT 30.7 % (39.0-53.0); HGB 9.9 gm/dL (13.0-17.5); Lymphocytes # (A) 0.6 k/uL (1.0-4.8); Lymphocytes % (A) 7 %; MCH 30.9 pg (25.0-35.0); MCHC 32.4 g/dL (31.0-37.0); MCV 95.4 fL (80.0-100.0); Mean Platelet Volume 8.6; Monocytes # (A) 0.8 k/uL (0-1.0); Monocytes % (A) 8 %; Neutrophils # (A) 7.3 k/uL (1.3-7.7); Neutrophils % (A) 81 %; Platelet Count 215 k/uL (150-450); RBC 3.22 m/uL (4.30-5.90); RDW 13.8 % (11.5-15.5); WBC 9.1 k/uL (3.8-10.6)
[2023-11-05 11:04] LABS: ALT 25 U/L (4-49); AST 21 U/L (17-59); African American GFR (CKD) 13 (>60 ml/min/1.73 sqM); Albumin 3.7 g/dL (3.5-5.0); Alkaline Phosphatase 97 U/L (38-126); Anion Gap 10 mmol/L; Blood Urea Nitrogen 46 mg/dL (9-20); Calcium 7.1 mg/dL (8.4-10.2); Carbon Dioxide 27 mmol/L (22-30); Chloride 104 mmol/L (98-107); Glucose 112 mg/dL (74-99); Non-African American GFR(CKD) 11 (>60 ml/min/1.73 sqM); Potassium 4.7 mmol/L (3.5-5.1); Sodium 141 mmol/L (137-145); Total Bilirubin 0.6 mg/dL (0.2-1.3); Total Protein 6.1 g/dL (6.3-8.2)
[2023-11-05 11:13] LABS: INR 0.9 (<1.2); Partial Thromboplastin Time 23.9 sec (22.0-30.0); Prothrombin Time 10.1 sec (10.0-12.5)
--- NOTE | 2023-11-05 11:21 | ED ---
General Adult HPI - General Chief complaint: Recheck/Abnormal Lab/Rx Stated complaint: L Arm Bleed Time Seen by Provider: 11/05/23 10:05 Source: patient, RN notes reviewed Mode of arrival: ambulatory Limitations: no limitations - History of Present Illness Initial comments: 68-year-old male presents emergency department chief complaint of left arm discomfort. Patient states he had a procedure on his left arm to open his fistula as it has been stenosed. Patient states that they are unable open he has go back for a second procedure he states he noticed bruising that started today and increasing swelling mild discomfort no chest pain no shortness of breath denies any other associated symptoms. - Related Data Home Medications Medication Instructions Recorded Confirmed Tiotropium [place] [Spiriva 2 puff INHALATION RT-DAILY 11/03/14 08/19/23 Respimat] Latanoprost/Pf [Latanoprost 0.005% 1 drop BOTH EYES HS 05/23/19 08/19/23 Eye Drop] Atorvastatin Calcium [Lipitor] 80 mg PO HS 04/15/22 08/19/23 Dorzolamide 2% [Trusopt 2%] 1 drop BOTH EYES DAILY 04/15/22 08/19/23 Insulin Aspart Prot/Insuln Asp 1 - 90 unit SQ BID-W/MEALS 04/15/22 08/19/23 [NovoLOG MIX 70-30 Flexpen] cloNIDine HCL [Catapres] 0.2 mg PO BID 04/15/22 08/19/23 hydrALAZINE HCL [Apresoline] 100 mg PO BID 04/15/22 08/19/23 Calcium Carbonate [Tums] 500 mg PO TID-W/MEALS 08/19/23 08/19/23 Losartan [Cozaar] 50 mg PO DAILY 08/19/23 08/19/23 Omeprazole [PriLOSEC] 20 mg PO BID 08/19/23 08/19/23 Sertraline [Zoloft] 25 mg PO DAILY PRN 08/19/23 08/19/23 amLODIPine [Norvasc] 5 mg PO DAILY 08/19/23 08/19/23 cloNIDine HCL [Catapres] 0.2 mg PO DAILY PRN 08/19/23 08/19/23 hydrALAZINE HCL [Apresoline] 100 mg PO DAILY PRN 08/19/23 08/19/23 Allergies Allergy/AdvReac Type Severity Reaction Status Date / Time clindamycin Allergy Anaphylaxis Verified 11/05/23 09:55 Review of Systems ROS Statement: Those systems with pertinent positive or pertinent negative responses have been documented in the HPI. ROS Other: All systems not noted in ROS Statement are negative. Past Medical History Past Medical History: COPD, Diabetes Mellitus, Eye Disorder, Hyperlipidemia, Hypertension, Myocardial Infarction (NV), Osteoarthritis (OA), Renal Disease, Sleep Apnea/CPAP/BIPAP Additional Past Medical History / Comment(s): IDDM,Diabetic retinopathy, GLAUCOMA. HEMODIALYSIS ,TH,SA-4 hours-access rt chest port. USES CPAP-machine currently not working calling [facility] Last Myocardial Infarction Date:: 2014 History of Any Multi-Drug Resistant Organisms: None Reported Past Surgical History: Joint Replacement, Tonsillectomy Additional Past Surgical History / Comment(s): rt total hip replacement, lasik eye surgery. FX JAW WIRED IN 1989,failed av fistula left upper arm Past Anesthesia/Blood Transfusion Reactions: Previous Problems w/ Anesthesia Additional Past Anesthesia/Blood Transfusion Reaction / Comment(s): pt states "cardiac arrest during hip replacement surgery with Dr Franklin at [facility] in 2014" Past Psychological History: No Psychological Hx Reported Smoking Status: Former smoker Past Alcohol Use History: None Reported Past Drug Use History: None Reported - Past Family History Sister(s) Family Medical History: Cancer Additional Family Medical History / Comment(s): ovarian CA, lung CA Brother(s) Family Medical History: Cancer Additional Family Medical History / Comment(s): prostate CA General Exam Limitations: no limitations General appearance: alert, in no apparent distress Head exam: Present: atraumatic, normocephalic, normal inspection Neck exam: Present: normal inspection. Absent: tenderness, meningismus, l ymphadenopathy Respiratory exam: Present: normal lung sounds bilaterally. Absent: respiratory distress, wheezes, rales, rhonchi, stridor Cardiovascular Exam: Present: regular rate, normal rhythm, normal heart sounds. Absent: systolic murmur, diastolic murmur, rubs, gallop, clicks Extremities exam: Present: other (Left bicep region there is noted sutures in place over fistula, there is ecchymosis in the lower bicep region from the elbow to axilla radial pulse equal bilaterally) Course Vital Signs 11/05/23 11/05/23 09:50 12:32 Temperature 98 F 97.9 F Pulse Rate 102 H 80 Respiratory 18 16 Rate Blood Pressure 129/65 137/74 O2 Sat by Pulse 98 96 Oximetry Medical Decision Making - Medical Decision Making Was pt. sent in by a medical professional or institution (DEE Lockett, ADVERTISING PROJECT MANAGER, urgent care, hospital, or jail...) When possible be specific @ -No Did you speak to anyone other than the patient for history (EMS, parent, family, police, friend...)? What history was obtained from this source @ -No Did you review nursing and triage notes (agree or disagree)? Why? @ -I reviewed and agree with nursing and triage notes Were old charts reviewed (outside hosp., previous admission, EMS record, old EKG, old radiological studies, urgent care reports/EKG's, jail records)? Report findings @ -No old charts were reviewed Differential Diagnosis (chest pain, altered mental status, abdominal pain women, abdominal pain men, vaginal bleeding, weakness, fever, dyspnea, syncope, headache, dizziness, GI bleed, back pain, seizure, CVA, palpatations, mental health, musculoskeletal)? @ -Arterial bleed, venous bleed, hematoma, fistula complications EKG interpreted by me (3pts min.). @ -None X-rays interpreted by me (1pt min.). @ -None done CT interpreted by me (1pt min.). @ -None done U/S interpreted by me (1pt. min.). @ -Ultrasound left upper extremity showing no active bleeding, clotted fistula basilic vein What testing was considered but not performed or refused? (CT, X-rays, U/S, labs)? Why? @ -None What meds were considered but not given or refused? Why? @ -None Did you discuss the management of the patient with other professionals (professionals i.e. DEE Lockett, ADVERTISING PROJECT MANAGER, lab, RT, psych nurse, secondary social studies teacher, counseling center manager, teacher, workplace rehabilitation officer, case loader operator)? Give summary @ -Discussed the case with Dr. Tabares regarding imaging and possible complications stating as long as he is no active bleeding patient needs to follow-up with his vascular surgeon Was smoking cessation discussed for >3mins.? @ -No Was critical care preformed (if so, how long)? @ -No Were there social determinants of health that impacted care today? How? (Homelessness, low income, unemployed, alcoholism, drug addiction, transportation, low edu. Level, literacy, decrease access to med. care, custodial, rehab)? @ -No Was there de-escalation of care discussed even if they declined (Discuss DNR or withdrawal of care, Hospice)? DNR status @ -No What co-morbidities impacted this encounter? (DM, HTN, Smoking, COPD, CAD, C ancer, CVA, ARF, Chemo, Hep., AIDS, mental health diagnosis, sleep apnea, morbid obesity)? @ -None Was patient admitted / discharged? Hospital course, mention meds given and route, prescriptions, significant lab abnormalities, going to OR and other pertinent info. @ -Discharge patient ultrasound for concern of active bleeding left arm there is no active bleeding there is sclerotic areas noted which is known by vascular surgeon that he sees he has no worsening symptoms his hemoglobin is stable for patient will be discharged in stable condition vies follow-up with vascular surgeon tomorrow Undiagnosed new problem with uncertain prognosis? @ -No Drug Therapy requiring intensive monitoring for toxicity (Heparin, Nitro, Insulin, Cardizem)? @ -No Were any procedures done? @ -No Diagnosis/symptom? @ -Hematoma left arm Acute, or Chronic, or Acute on Chronic? @ -Acute Uncomplicated (without systemic symptoms) or Complicated (systemic symptoms)? @ -Uncomplicated Side effects of treatment? @ -No Exacerbation, Progression, or Severe Exacerbation? @ -No Poses a threat to life or bodily function? How? (Chest pain, [place], [place], pneumonia, PE, COPD, DKA, ARF, appy, cholecystitis, CVA, Diverticulitis, Homicidal, Suicidal, threat to staff... and all critical care pts) @ -No - Lab Data Result diagrams: 11/05/23 10:36 11/05/23 10:36 Lab Results 11/05/23 11/05/23 11/05/23 Range/Units 10:36 10:36 10:36 WBC 9.1 (3.8-10.6) k/uL RBC 3.22 L (4.30-5.90) m/uL Hgb 9.9 L (13.0-17.5) gm/dL Hct 30.7 L (39.0-53.0) % MCV 95.4 (80.0-100.0) fL MCH 30.9 (25.0-35.0) pg MCHC 32.4 (31.0-37.0) g/dL RDW 13.8 (11.5-15.5) % Plt Count 215 (150-450) k/uL MPV 8.6 Neutrophils % 81 % Lymphocytes % 7 % Monocytes % 8 % Eosinophils % 3 % Basophils % 1 % Neutrophils # 7.3 (1.3-7.7) k/uL Lymphocytes # 0.6 L (1.0-4.8) k/uL Monocytes # 0.8 (0-1.0) k/uL Eosinophils # 0.2 (0-0.7) k/uL Basophils # 0.0 (0-0.2) k/uL PT 10.1 (10.0-12.5) sec INR 0.9 (<1.2) APTT 23.9 (22.0-30.0) sec Sodium 141 (137-145) mmol/L Potassium 4.7 (3.5-5.1) mmol/L Chloride 104 (98-107) mmol/L Carbon Dioxide 27 (22-30) mmol/L Anion Gap 10 mmol/L BUN 46 H (9-20) mg/dL Creatinine 4.79 H (0.66-1.25) mg/dL Est GFR (CKD-EPI)AfAm 13 (>60 ml/min/1.73 sqM) Est GFR (CKD-EPI)NonAf 11 (>60 ml/min/1.73 sqM) Glucose 112 H (74-99) mg/dL Calcium 7.1 L (8.4-10.2) mg/dL Total Bilirubin 0.6 (0.2-1.3) mg/dL AST 21 (17-59) U/L ALT 25 (4-49) U/L Alkaline Phosphatase 97 (38-126) U/L Total Protein 6.1 L (6.3-8.2) g/dL Albumin 3.7 (3.5-5.0) g/dL Disposition Clinical Impression: Arm bruise Disposition: HOME SELF-CARE Condition: Stable Additional Instructions: Please follow-up with your vascular surgeon as directed. Please return to the Emergency Department if symptoms worsen or any other concerns. Is patient prescribed a controlled substance at d/c from ED?: No Referrals: None,Stated [Primary Care Provider] - 1-2 days Time of Disposition: 12:13
--- NOTE | 2023-11-05 11:48 | US ---
EXAMINATION TYPE: US venous doppler duplex UE LT DATE OF EXAM: 11/05/2023 COMPARISON: NONE CLINICAL INDICATION: Male, 68 years old with history of pain, bleeding; Pt had surgery on 11/01/23 to c lear the blockage out of his fistula. Pt states they could not finish it because he started to hemorr juan josé. Scanned area of bruising on posterior arm as well as a venous study. SIDE PERFORMED: Left Technique grayscale imaging of the patient's upper arm and fistula. Findings: Left Arm: Echoes seen in left basilic vein. Fistula appears to be clotted. Area of bruising scanned o n left posterior arm and no obvious abnormality seen. IMPRESSION: 1. Left basilic vein due to multiple colitis. 2. Occluded fistula
[2023-11-05 12:39] VITALS: BP 137/74; PULSE 80; RESP 16; TEMP 97.9
== END 2023-11-05 12:39 | disposition home or self-care (01) ==
LOC: EC 09:48
DX: S40.022A Contusion of left upper arm, initial encounter (principal); Z88.1 Allergy status to other antibiotic agents; X58.XXXA Exposure to other specified factors, initial encounter
CPT/HCPCS: 36415; 80053; 85025; 85610; 85730; 99284

== ENCOUNTER 2023-12-25 19:06 | Emergency (ER) | payer MEDICARE ==
[2023-12-25 19:35] LABS: Glucose,Whole Blood 133 mg/dL (70-110)
--- NOTE | 2023-12-25 20:58 | ED ---
Lower Extremity Injury HPI - General Chief Complaint: Extremity Injury, Lower Stated Complaint: L foot pain Time Seen by Provider: 12/25/23 20:57 Source: patient, RN notes reviewed Mode of arrival: ambulatory - History of Present Illness Initial Comments: 68-year-old male presented to the ER with a chief complaint of left foot sore. Patient states it has been there for about 5 or 6 years. His has been caring for it with Epsom salt baths and closely monitoring the callus. He states his recently and he has been having difficulty with the area since. He states for past couple days he has noticed it as a blister and it popped today which caused it to bleed. He is a known diabetic. Patient reports he has customized shoes due to this issue. He denies any injuries or traumas. Denies any fevers, chills, nausea, vomiting, chest pain, shortness of breath or peripheral edema. - Related Data Home Medications Medication Instructions Recorded Confirmed Tiotropium Hansen [Spiriva 2 puff INHALATION RT-DAILY 11/03/14 08/19/23 Respimat] Latanoprost/Pf [Latanoprost 0.005% 1 drop BOTH EYES HS 05/23/19 08/19/23 Eye Drop] Atorvastatin Calcium [Lipitor] 80 mg PO HS 04/15/22 08/19/23 Dorzolamide 2% [Trusopt 2%] 1 drop BOTH EYES DAILY 04/15/22 08/19/23 Insulin Aspart Prot/Insuln Asp 1 - 90 unit SQ BID-W/MEALS 04/15/22 08/19/23 [NovoLOG MIX 70-30 Flexpen] cloNIDine HCL [Catapres] 0.2 mg PO BID 04/15/22 08/19/23 hydrALAZINE HCL [Apresoline] 100 mg PO BID 04/15/22 08/19/23 Calcium Carbonate [Tums] 500 mg PO TID-W/MEALS 08/19/23 08/19/23 Losartan [Cozaar] 50 mg PO DAILY 08/19/23 08/19/23 Omeprazole [PriLOSEC] 20 mg PO BID 08/19/23 08/19/23 Sertraline [Zoloft] 25 mg PO DAILY PRN 08/19/23 08/19/23 amLODIPine [Norvasc] 5 mg PO DAILY 08/19/23 08/19/23 cloNIDine HCL [Catapres] 0.2 mg PO DAILY PRN 08/19/23 08/19/23 hydrALAZINE HCL [Apresoline] 100 mg PO DAILY PRN 08/19/23 08/19/23 Allergies Allergy/AdvReac Type Severity Reaction Status Date / Time clindamycin Allergy Anaphylaxis Verified 12/25/23 19:34 Review of Systems ROS Statement: Those systems with pertinent positive or pertinent negative responses have been documented in the HPI. ROS Other: All systems not noted in ROS Statement are negative. Past Medical History Past Medical History: COPD, Diabetes Mellitus, Eye Disorder, Hyperlipidemia, Hypertension, Myocardial Infarction (NH), Osteoarthritis (OA), Renal Disease, Sleep Apnea/CPAP/BIPAP Additional Past Medical History / Comment(s): IDDM,Diabetic retinopathy, GLAUCOMA. HEMODIALYSIS ,,SA-4 hours-access rt chest port. USES CPAP-machine currently not working calling [facility] Last Myocardial Infarction Date:: 2014 History of Any Multi-Drug Resistant Organisms: None Reported Past Surgical History: Joint Replacement, Tonsillectomy Additional Past Surgical History / Comment(s): rt total hip replacement, lasik eye surgery. FX JAW WIRED IN 1989,failed av fistula left upper arm Past Anesthesia/Blood Transfusion Reactions: Previous Problems w/ Anesthesia Additional Past Anesthesia/Blood Transfusion Reaction / Comment(s): pt states "cardiac arrest during hip replacement surgery with Dr rFanklin at [facility] in 2014" Past Psychological History: No Psychological Hx Reported Smoking Status: Former smoker Past Alcohol Use History: None Reported Past Drug Use History: None Reported - Past Family History Sister(s) Family Medical History: Cancer Additional Family Medical History / Comment(s): ovarian CA, lung CA Brother(s) Family Medical History: Cancer Additional Family Medical History / Comment(s): prostate CA General Exam - General Exam Comments Initial Comments: Visual Physical Exam Vital signs reviewed General: Well-appearing, nontoxic, no acute distress. Head: Normocephalic, atraumatic Eyes: PERRLA, EOMI ENT: Airway patent Chest: Nonlabored breathing Skin: No visual rash, normal skin tone Neuro: Alert and oriented 3 Musculoskeletal: No gross abnormalities Limitations: no limitations General appearance: alert, in no apparent distress Respiratory exam: Present: normal lung sounds bilaterally. Absent: respiratory distress, wheezes, rales, rhonchi, stridor Cardiovascular Exam: Present: regular rate, normal rhythm, normal heart sounds. Absent: systolic murmur, diastolic murmur, rubs, gallop, clicks Extremities exam: Present: normal inspection, full ROM, normal capillary refill. Absent: tenderness, pedal edema, joint swelling, calf tenderness Neurological exam: Present: alert, oriented X3, CN II-XII intact Skin exam: Present: warm, dry, intact, normal color, other (Callus to left plantar aspect first metatarsal. Callus is dark red no underlying wound, surrounding erythema or purulent drainage.). Absent: rash Course Vital Signs 12/25/23 12/25/23 19:30 22:20 Temperature 98.2 F 97.9 F Pulse Rate 80 76 Respiratory 18 16 Rate Blood Pressure 156/77 143/74 O2 Sat by Pulse 99 99 Oximetry Medical Decision Making - Medical Decision Making I performed the quick note portion of this chart. Electronically signed by Kaela Brooks PA-C Was pt. sent in by a medical professional or institution (DEE Lockett, [employer]IND[employer] SET UP OPERATOR [employer], urgent care, hospital, or detention...) When possible be specific @ -No Did you speak to anyone other than the patient for history (EMS, parent, family, police, friend...)? What history was obtained from this source @ -No Did you review nursing and triage notes (agree or disagree)? Why? @ -I reviewed and agree with nursing and triage notes Were old charts reviewed (outside hosp., previous admission, EMS record, old EKG, old radiological studies, urgent care reports/EKG's, detention records)? Report findings @ -No old charts were reviewed Differential Diagnosis (chest pain, altered mental status, abdominal pain women, abdominal pain men, vaginal bleeding, weakness, fever, dyspnea, syncope, headache, dizziness, GI bleed, back pain, seizure, CVA, palpatations, mental health, musculoskeletal)? @ -Differential Musculoskeletal: Muscular strain, contusion, ligament sprain, fracture, arthritis, septic arthritis, bursitis, cellulitis, muscle spasm, nerve compression, DVT, arterial occlusion, herpes zoster, electrolyte abnormality, tumor.... This is not meant to be in all inclusive list EKG interpreted by me (3pts min.). @ -None X-rays interpreted by me (1pt min.). @ -Left foot x-ray interpreted me negative for acute fractures, bony destruction, radiopaque foreign body. CT interpreted by me (1pt min.). @ -None done U/S interpreted by me (1pt. min.). @ -None done What testing was considered but not performed or refused? (CT, X-rays, U/S, labs)? Why? @ -None What meds were considered but not given or refused? Why? @ -None Did you discuss the management of the patient with other professionals (professionals i.e. , PA, GRINDER SET UP OPERATOR [employer], lab, RT, psych nurse, elementary school social worker, miniature set designer, teacher, amphibious operations officer, pillowcase cutter)? Give summary @ -No Was smoking cessation discussed for >3mins.? @ -No Was critical care preformed (if so, how long)? @ -No Were there social determinants of health that impacted care today? How? (Homelessness, low income, unemployed, alcoholism, drug addiction, transportation, low edu. Level, literacy, decrease access to med. care, fdc, rehab)? @ -No Was there de-escalation of care discussed even if they declined (Discuss DNR or withdrawal of care, Hospice)? DNR status @ -No What co-morbidities impacted this encounter? (DM, HTN, Smoking, COPD, CAD, Cancer, CVA, ARF, Chemo, Hep., AIDS, mental health diagnosis, sleep apnea, morbid obesity)? @ -Diabetes Was patient admitted / discharged? Hospital course, mention meds given and route, prescriptions, significant lab abnormalities, going to OR and other pertinent info. @ -Discharge. 68-year-old male presented to ER with a chief complaint of left foot sore. History and physical exam completed. Vitals stable. Patient in no signs of acute distress and nontoxic-appearing. Left lower extremity neurovascular intact. Examination of plantar aspect of left foot showing a 2 cm callus to distal first metatarsal. No surrounding erythema, purulent drainage or underlying wound. Callus is dark in nature for which I believe it was a hemorrhagic vesicle which has since drained. X-rays obtained negative for acute fractures, osseous destruction or radiopaque foreign body. Due to physical exam and x-ray findings patient is stable for discharge with follow-up to pod iatry, referral given. Conservative treatment measures discussed. Patient discharged in stable condition. Strict return parameters discussed. Patient verbally expressed understanding and agreed with care plan. Case discussed with ED attending, Dr. Chavez. Undiagnosed new problem with uncertain prognosis? @ -No Drug Therapy requiring intensive monitoring for toxicity (Heparin, Nitro, Insulin, Cardizem)? @ -No Were any procedures done? @ -No Diagnosis/symptom? @ -Foot callus Acute, or Chronic, or Acute on Chronic? @ -Chronic Uncomplicated (without systemic symptoms) or Complicated (systemic symptoms)? @ -Uncomplicated Side effects of treatment? @ -No Exacerbation, Progression, or Severe Exacerbation? @ -No Poses a threat to life or bodily function? How? (Chest pain, USA, NH, pneumonia, PE, COPD, DKA, ARF, appy, cholecystitis, CVA, Diverticulitis, Homicidal, Suicidal, threat to staff... and all critical care pts) @ -No - Lab Data Lab Results 12/25/23 Range/Units 19:33 POC Glucose (mg/dL) 133 H (70-110) mg/dL POC Glu Burglary Investigator Sandor Tolbert - Radiology Data Radiology results: report reviewed, image reviewed Disposition Clinical Impression: Callus of foot Disposition: HOME SELF-CARE Condition: Stable Instructions (If sedation given, give patient instructions): Foot Care for People with Diabetes (ED) Additional Instructions: I recommend warm foot soaks with Epsom salt. Follow-up with podiatry. Referral given. Return to the ER for any new or worsening concerns. Is patient prescribed a controlled substance at d/c from ED?: No Referrals: None,Stated [REFERRING] - 1-2 days Mariah Peña DPM [STAFF PHYSICIAN] - 1-2 days Time of Disposition: 22:15
--- NOTE | 2023-12-25 21:29 | XR ---
EXAMINATION TYPE: XR foot complete LT DATE OF EXAM: 12/25/2023 9:12 PM CLINICAL INDICATION:Male, 68 years old with history of blister; [facility] COMPARISON: None TECHNIQUE: XR foot complete LT examined in the AP, oblique, and lateral projections. FINDINGS: No evidence of any acute osseous pathology. Multifocal degeneration changes throughout the joints of the foot with osteophyte formation and joint space narrowing. Atherosclerosis of the arterial vascula ture. Calcaneal plantar spurring is present. Soft tissue wound seen on lateral view. IMPRESSION: 1. No evidence of acute fracture. 2. Multifocal degeneration changes throughout the joints of the foot. 3. Soft tissue wound No evidence radiopaque foreign body or osseous erosion.
[2023-12-25 22:42] VITALS: BP 143/74; PULSE 76; RESP 16; TEMP 97.9
== END 2023-12-25 22:20 | disposition home or self-care (01) ==
LOC: EC 19:06
DX: M25.775 Osteophyte, left foot (principal); Z88.8 Allergy status to other drugs, medicaments and biological substances; Z87.891 Personal history of nicotine dependence; Z99.2 Dependence on renal dialysis; Z90.89 Acquired absence of other organs
CPT/HCPCS: 36415; 99283

== ENCOUNTER 2024-06-15 07:03 | Inpatient (IN) | payer MEDICARE, OTHER ==
--- NOTE | 2024-06-15 07:20 | ED ---
SOB HPI - General Chief Complaint: Shortness of Breath Stated Complaint: ROBERT Time Seen by Provider: 06/15/24 07:09 Source: patient, RN notes reviewed Mode of arrival: ambulatory Limitations: no limitations - History of Present Illness Initial Comments: This is a 68-year-old male who presents to the emergency department for shortness of breath. States that it started 1 to 2 days ago. He is on hemodialysis Monday, , and Monday. States that he has not gone in a week because he has been out of town. He has started to notice swelling in his legs and abdomen. States that he had a similar problem happen to him last year where he missed dialysis causing him to fill up with fluid and become short of breath. Denies any chest pain. Patient admits to forgetting to take his blood pressure medication this morning. Denies any headaches. MD Complaint: shortness of breath - Related Data Home Medications Medication Instructions Recorded Confirmed Latanoprost/Pf [Latanoprost 0.005% 1 drop BOTH EYES DAILY 05/23/19 06/15/24 Eye Drop] Atorvastatin Calcium [Lipitor] 80 mg PO HS 04/15/22 06/15/24 Dorzolamide 2% [Trusopt 2%] 1 drop BOTH EYES DAILY 04/15/22 06/15/24 Insulin Aspart Prot/Insuln Asp 68 unit SQ BID-W/MEALS 04/15/22 06/15/24 [NovoLOG MIX 70-30 Flexpen] cloNIDine HCL [Catapres] 0.2 mg PO BID 04/15/22 06/15/24 hydrALAZINE HCL [Apresoline] 100 mg PO BID 04/15/22 06/15/24 Folic Acid/Vit B Complex and C 0.8 mg PO DAILY 06/15/24 06/15/24 [Marguerite-Ingris Tablet] Losartan [Cozaar] 25 mg PO DAILY 06/15/24 06/15/24 Sertraline [Zoloft] 50 mg PO DAILY 06/15/24 06/15/24 Allergies Allergy/AdvReac Type Severity Reaction Status Date / Time clindamycin Allergy Anaphylaxis Verified 06/15/24 10:41 Review of Systems ROS Statement: Those systems with pertinent positive or pertinent negative responses have been documented in the HPI. ROS Other: All systems not noted in ROS Statement are negative. Past Medical History Past Medical History: COPD, Diabetes Mellitus, Eye Disorder, Hyperlipidemia, Hypertension, Myocardial Infarction (OR), Osteoarthritis (OA), Renal Disease, Sleep Apnea/CPAP/BIPAP Additional Past Medical History / Comment(s): IDDM,Diabetic retinopathy, GLAUCOMA. HEMODIALYSIS ,TH,SA-4 hours-access rt chest port. USES CPAP-machine currently not working calling [facility] Last Myocardial Infarction Date:: 2014 History of Any Multi-Drug Resistant Organisms: None Reported Past Surgical History: Joint Replacement, Tonsillectomy Additional Past Surgical History / Comment(s): rt total hip replacement, lasik eye surgery. FX JAW WIRED IN 1989,failed av fistula left upper arm Past Anesthesia/Blood Transfusion Reactions: Previous Problems w/ Anesthesia Additional Past Anesthesia/Blood Transfusion Reaction / Comment(s): pt states "cardiac arrest during hip replacement surgery with Dr Franklin at [facility] in 2014" Past Psychological History: No Psychological Hx Reported Smoking Status: Former smoker Past Alcohol Use History: None Reported Past Drug Use History: None Reported - Past Family History Sister(s) Family Medical History: Cancer Additional Family Medical History / Comment(s): ovarian CA, lung CA Brother(s) Family Medical History: Cancer Additional Family Medical History / Comment(s): prostate CA General Exam Limitations: no limitations General appearance: alert, in no apparent distress Head exam: Present: atraumatic, normocephalic, normal inspection Respiratory exam: Present: rhonchi Cardiovascular Exam: Present: regular rate, normal rhythm GI/Abdominal exam: Present: distended. Absent: tenderness Neurological exam: Present: alert, oriented X3, CN II-XII intact Psychiatric exam: Present: normal affect, normal mood Skin exam: Present: warm, dry, intact, normal color. Absent: rash Course Vital Signs 06/15/24 06/15/24 06/15/24 07:07 07:33 08:45 Temperature 98.7 F 97.9 F Pulse Rate 100 80 82 Respiratory 20 18 18 Rate Blood Pressure 210/88 173/91 183/89 O2 Sat by Pulse 97 98 97 Oximetry 06/15/24 06/15/24 09:41 11:03 Temperature Pulse Rate 84 Respiratory 18 18 Rate Blood Pressure 191/101 O2 Sat by Pulse 100 Oximetry Medical Decision Making - Medical Decision Making This is a 68-year-old male who presents to the emergency department for sh ortness of breath. Was pt. sent in by a medical professional or institution? @ -No Did you speak to anyone other than the patient for history? @ -No Did you review nursing and triage notes? @ -Yes, and I agree, it is accurate with regards to the patient's symptoms. Were old charts reviewed? @ -No Differential Diagnosis? @ -Differential Dyspnea: Coronary syndrome, arrhythmia, tamponade, asthma, COPD, pulmonary embolism, pneumonia, pneumothorax, pulmonary effusion, anaphylaxis, diabetic ketoacidosis, flailed chest, pulmonary contusion, diaphragmatic rupture, anemia, neuromuscular, this is not meant to be an all-inclusive list. EKG interpreted by me (3pts min.)? @ -EKG interpreted by me demonstrating the following: Sinus rhythm. Ventricular rate 81 bpm, AL interval 139 ms, QRS duration 105 ms, QTc 430 ms. X-rays interpreted by me (1pt min.)? @ -Chest x-ray obtained, my interpretation identifies no localized consolidations or infiltrates. CT interpreted by me (1pt min.)? @ -Not obtained U/S interpreted by me (1pt. min.)? @ -Not obtained What testing was considered but not performed? (CT, X-rays, U/S, labs)? Why? @ -None What meds were considered but not given? Why? @ -None Did you discuss the management of the patient with other professionals? @ -Yes, Dr. Santoro, who accepts the patient for admission Did you reconcile home meds? @ -Yes Was smoking cessation discussed for >3mins.? @ -No Was critical care preformed (if so, how long)? @ -No Were there social determinants of health that impacted care today? How? (Homelessness, low income, unemployed, alcoholism, drug addiction, transportation, low edu. Level, literacy, decrease access to med. care, senior care, rehab)? @ -No Was there de-escalation of care discussed even if they declined? (Discuss DNR or withdrawal of care, Hospice)? @ -No What co-morbidities impacted this encounter? (DM, HTN, Smoking, COPD, CAD, Cancer, CVA, Hep., AIDS, mental health diagnosis, sleep apnea, morbid obesity)? @ -COPD, DM, HLD, HTN, renal failure Was patient admitted / discharged? @ -Admitted. Lab work demonstrates poor renal function consistent with patient being in renal failure on dialysis. Pot[place] [address]. Troponin elevated at 0.232, likely secondary to fluid overload state and end-stage renal disease on dialysis. Chest x-ray reveals no acute process. COVID, influenza, and RSV testing negative. Patient's shortness of breath is likely due to the fluid overload state and need for dialysis, wh ich he has not had in a week. Patient admitted to medicine for further management of his fluid overload status and elevated troponin. Serial troponins ordered. Consult placed for nephrology and cardiology. Case discussed with ED attending Dr. Cavazos. Undiagnosed new problem with uncertain prognosis? @ -None Drug Therapy requiring intensive monitoring for toxicity (Heparin, Nitro, Insulin, Cardizem)? @ -None Were any procedures done? @ -None Diagnosis/symptom? @ -Fluid overload, elevated troponin Acute, or Chronic, or Acute on Chronic? @ -Acute Uncomplicated (without systemic symptoms) or Complicated (systemic symptoms)? @ -Complicated Side effects of treatment? @ -None Exacerbation, Progression, or Severe Exacerbation] @ -Not applicable Poses a threat to life or bodily function? @ -Yes, can lead to respiratory failure and - Lab Data Result diagrams: 06/15/24 07:41 06/15/24 07:41 Lab Results 06/15/24 06/15/24 06/15/24 Range/Units 07:41 07:41 07:41 WBC 9.4 (3.8-10.6) k/uL RBC 3.40 L (4.30-5.90) m/uL Hgb 10.7 L (13.0-17.5) gm/dL Hct 33.1 L (39.0-53.0) % MCV 97.4 (80.0-100.0) fL MCH 31.6 (25.0-35.0) pg MCHC 32.4 (31.0-37.0) g/dL RDW 13.4 (11.5-15.5) % Plt Count 213 (150-450) k/uL MPV 7.2 Neutrophils % 79 % Lymphocytes % 9 % Monocytes % 5 % Eosinophils % 5 % Basophils % 0 % Neutrophils # 7.4 (1.3-7.7) k/uL Lymphocytes # 0.9 L (1.0-4.8) k/uL Monocytes # 0.5 (0-1.0) k/uL Eosinophils # 0.5 (0-0.7) k/uL Basophils # 0.0 (0-0.2) k/uL PT 10.1 (10.0-12.5) sec INR 0.9 (<1.2) APTT 23.8 (22.0-30.0) sec Sodium 143 (137-145) mmol/L Potassium 4.7 (3.5-5.1) mmol/L Chloride 112 H (98-107) mmol/L Carbon Dioxide 17 L (22-30) mmol/L Anion Gap 14 mmol/L BUN 90 H (9-20) mg/dL Creatinine 6.92 H (0.66-1.25) mg/dL Est GFR (CKD-EPI)AfAm 8 (>60 ml/min/1.73 sqM) Est GFR (CKD-EPI)NonAf 7 (>60 ml/min/1.73 sqM) Glucose 83 (74-99) mg/dL Plasma Lactic Acid Parminder (0.7-2.0) mmol/L Calcium 8.2 L (8.4-10.2) mg/dL Magnesium 2.1 (1.6-2.3) mg/dL Total Bilirubin 0.3 (0.2-1.3) mg/dL AST 18 (17-59) U/L ALT 17 (4-49) U/L Alkaline Phosphatase 92 (38-126) U/L Troponin I (0.000-0.034) ng/mL NT-Pro-B Natriuret Pep 77468 pg/mL Total Protein 6.3 (6.3-8.2) g/dL Albumin 3.8 (3.5-5.0) g/dL Influenza Type A (PCR) (Not Detectd) Influenza Type B (PCR) (Not Detectd) RSV (PCR) (Not Detectd) SARS-CoV-2 (PCR) (Not Detectd) 06/15/24 06/15/24 06/15/24 Range/Units 07:41 07:41 07:41 WBC (3.8-10.6) k/uL RBC (4.30-5.90) m/uL Hgb (13.0-17.5) gm/dL Hct (39.0-53.0) % MCV (80.0-100.0) fL MCH (25.0-35.0) pg MCHC (31.0-37.0) g/dL RDW (11.5-15.5) % Plt Count (150-450) k/uL MPV Neutrophils % % Lymphocytes % % Monocytes % % Eosinophils % % Basophils % % Neutrophils # (1.3-7.7) k/uL Lymphocytes # (1.0-4.8) k/uL Monocytes # (0-1.0) k/uL Eosinophils # (0-0.7) k/uL Basophils # (0-0.2) k/uL PT (10.0-12.5) sec INR (<1.2) APTT (22.0-30.0) sec Sodium (137-145) mmol/L Potassium (3.5-5.1) mmol/L Chloride (98-107) mmol/L Carbon Dioxide (22-30) mmol/L Anion Gap mmol/L BUN (9-20) mg/dL Creatinine (0.66-1.25) mg/dL Est GFR (CKD-EPI)AfAm (>60 ml/min/1.73 sqM) Est GFR (CKD-EPI)NonAf (>60 ml/min/1.73 sqM) Glucose (74-99) mg/dL Plasma Lactic Acid Parminder 0.8 (0.7-2.0) mmol/L Calcium (8.4-10.2) mg/dL Magnesium (1.6-2.3) mg/dL Total Bilirubin (0.2-1.3) mg/dL AST (17-59) U/L ALT (4-49) U/L Alkaline Phosphatase (38-126) U/L Troponin I 0.232 H* (0.000-0.034) ng/mL NT-Pro-B Natriuret Pep pg/mL Total Protein (6.3-8.2) g/dL Albumin (3.5-5.0) g/dL Influenza Type A (PCR) Not Detected (Not Detectd) Influenza Type B (PCR) Not Detected (Not Detectd) RSV (PCR) Not Detected (Not Detectd) SARS-CoV-2 (PCR) Not Detected (Not Detectd) - Radiology Data Radiology results: report reviewed, image reviewed Disposition Clinical Impression: Fluid overload, ESRD on dialysis, Elevated troponin Disposition: ADMITTED IP TO THIS HOSP
--- NOTE | 2024-06-15 08:10 | XR ---
EXAMINATION TYPE: XR chest 2V DATE OF EXAM: 06/15/2024 7:58 AM COMPARISON: None CLINICAL INDICATION: Male, 68 years old with history of difficulty breathing; [facility] TECHNIQUE: XR chest 2V Frontal and lateral views of the chest. FINDINGS: Lungs/Pleura: There is no evidence of pleural effusion, focal consolidation, or pneumothorax. Pulmonary vascularity: Unremarkable. Heart/mediastinum: Cardiomediastinal silhouette is unremarkable. Musculoskeletal: No acute osseous pathology. Right central venous catheter tip at the superior cavoatrial junction. IMPRESSION: No acute cardiopulmonary disease/process. [facility] John Aquino, , 06/15/2024 8:08 AM
[2024-06-15 08:12] LABS: Basophils % (A) 0 %; Eosinophils # (A) 0.5 k/uL (0-0.7); Eosinophils % (A) 5 %; HCT 33.1 % (39.0-53.0); HGB 10.7 gm/dL (13.0-17.5); Lymphocytes # (A) 0.9 k/uL (1.0-4.8); Lymphocytes % (A) 9 %; MCH 31.6 pg (25.0-35.0); MCHC 32.4 g/dL (31.0-37.0); MCV 97.4 fL (80.0-100.0); Mean Platelet Volume 7.2; Monocytes # (A) 0.5 k/uL (0-1.0); Monocytes % (A) 5 %; Neutrophils # (A) 7.4 k/uL (1.3-7.7); Neutrophils % (A) 79 %; Platelet Count 213 k/uL (150-450); RDW 13.4 % (11.5-15.5); WBC 9.4 k/uL (3.8-10.6)
[2024-06-15 08:23] LABS: INR 0.9 (<1.2); Partial Thromboplastin Time 23.8 sec (22.0-30.0); Prothrombin Time 10.1 sec (10.0-12.5)
[2024-06-15 08:24] LABS: ALT 17 U/L (4-49); AST 18 U/L (17-59); African American GFR (CKD) 8 (>60 ml/min/1.73 sqM); Albumin 3.8 g/dL (3.5-5.0); Alkaline Phosphatase 92 U/L (38-126); Anion Gap 14 mmol/L; Blood Urea Nitrogen 90 mg/dL (9-20); Calcium 8.2 mg/dL (8.4-10.2); Carbon Dioxide 17 mmol/L (22-30); Chloride 112 mmol/L (98-107); Glucose 83 mg/dL (74-99); Magnesium 2.1 mg/dL (1.6-2.3); Non-African American GFR(CKD) 7 (>60 ml/min/1.73 sqM); Potassium 4.7 mmol/L (3.5-5.1); Sodium 143 mmol/L (137-145); Total Bilirubin 0.3 mg/dL (0.2-1.3); Total Protein 6.3 g/dL (6.3-8.2)
[2024-06-15 08:32] LABS: NT-Pro-B-Type Natriuretic Pept 21700 pg/mL
[2024-06-15 08:48] LABS: Influenza A Not Detected (Not Detectd); Influenza B Not Detected (Not Detectd); RSV Not Detected (Not Detectd)
[2024-06-15] MEDS ORDERED: ACETAMINOPHEN TAB 325 MG TAB PO PRN (09:56)
[2024-06-15] MEDS ORDERED: MORPHINE SULFATE 4 MG/ML SYRINGE IV PRN (09:56)
[2024-06-15] MEDS ORDERED: NALOXONE 0.4 MG/ML 1 ML VIAL IV PRN (09:56)
[2024-06-15] MEDS ORDERED: hydrALAZINE HCL 20 MG/ML 1 ML VIAL IVP PRN (10:14)
[2024-06-15] MEDS ORDERED: hydrALAZINE HCL 25 MG TAB PO PRN (10:14)
--- NOTE | 2024-06-15 10:15 | P.HPIM ---
History of Present Illness This is a pleasant 68 years old male with past medical history of multiple medical problems as below, including end-stage renal disease on hemodialysis Patient presents because of exertional dyspnea for the last 2 to 3 days, patient could not specify but he [place] and he missed his hemodialysis during this. But he was taking his pills as he supposed to be He denies chest pain. Occasional coughing. No abdominal pain vomiting or diarrhea. He makes urine still but he denies dysuria or urgency. No headache dizziness weakness or numbness. He walks using a walker His flare stitcher Dr. Gottlieb. His PCP is Dr. Stanton he is afebrile and vitals are stable except for blood pressure was elevated 210/88 on admission, currently feels better 183/89 His creatinine 6.9, hemoglobin 10.7, rest of CBC, BMP liver enzymes and INR were unremarkable proBNP is elevated 21,700 Chest x-ray showing no acute process, I reviewed chest x-ray by myself and agree Review of Systems Review of systems CONSTITUTIONAL: No fever, no malaise, no fatigue. HEENT: No recent visual problems or hearing problems. Denied any sore throat. CARDIOVASCULAR: No orthopnea, PND, no palpitations, no syncope. -PULMONARY: n occasional cough, no hemoptysis. GASTROINTESTINAL: No diarrhea, no nausea, no vomiting, no abdominal pain. Normoactive bowel sounds. NEUROLOGICAL: No headaches, no weakness, no numbness. HEMATOLOGICAL: Denies any bleeding or petechiae. GENITOURINARY: Denies any burning micturition, frequency, or urgency. MUSCULOSKELETAL/RHEUMATOLOGICAL: Denies any joint pain, swelling, or any muscle pain. ENDOCRINE: Denies any polyuria or polydipsia. Past Medical History Past Medical History: COPD, Diabetes Mellitus, Eye Disorder, Hyperlipidemia, Hypertension, Myocardial Infarction ([place]), Osteoarthritis (OA), Renal Disease, Sleep Apnea/CPAP/BIPAP Additional Past Medical History / Comment(s): IDDM,Diabetic retinopathy, GLAUCOMA. HEMODIALYSIS ,,-4 hours-access rt chest port. USES CPAP-machine currently not working calling [facility] Last Myocardial Infarction Date:: 2014 History of Any Multi-Drug Resistant Organisms: None Reported Past Surgical History: Joint Replacement, Tonsillectomy Additional Past Surgical History / Comment(s): rt total hip replacement, lasik eye surgery. FX JAW WIRED IN 1989,failed av fistula left upper arm Past Anesthesia/Blood Transfusion Reactions: Previous Problems w/ Anesthesia Additional Past Anesthesia/Blood Transfusion Reaction / Comment(s): pt states "cardiac arrest during hip replacement surgery with Dr Franklin at [facility] in 2015" Past Psychological History: No Psychological Hx Reported Smoking Status: Former smoker Past Alcohol Use History: None Reported Past Drug Use History: None Reported - Past Family History Sister(s) Family Medical History: Cancer Additional Family Medical History / Comment(s): ovarian CA, lung CA Brother(s) Family Medical History: Cancer Additional Family Medical History / Comment(s): prostate CA Medications and Allergies Home Medications Medication Instructions Recorded Confirmed Type Tiotropium [place] [Spiriva 2 puff INHALATION RT-DAILY 11/03/14 08/19/23 History Respimat] Latanoprost/Pf [Latanoprost 0.005% 1 drop BOTH EYES HS 05/23/19 08/19/23 History Eye Drop] Atorvastatin Calcium [Lipitor] 80 mg PO HS 04/15/22 08/19/23 History Dorzolamide 2% [Trusopt 2%] 1 drop BOTH EYES DAILY 04/15/22 08/19/23 History Insulin Aspart Prot/Insuln Asp 1 - 90 unit SQ BID-W/MEALS 04/15/22 08/19/23 History [NovoLOG MIX 70-30 Flexpen] cloNIDine HCL [Catapres] 0.2 mg PO BID 04/15/22 08/19/23 History hydrALAZINE HCL [Apresoline] 100 mg PO BID 04/15/22 08/19/23 History Calcium Carbonate [Tums] 500 mg PO TID-W/MEALS 08/19/23 08/19/23 History Losartan [Cozaar] 50 mg PO DAILY 08/19/23 08/19/23 History Omeprazole [PriLOSEC] 20 mg PO BID 08/19/23 08/19/23 History Sertraline [Zoloft] 25 mg PO DAILY PRN 08/19/23 08/19/23 History amLODIPine [Norvasc] 5 mg PO DAILY 08/19/23 08/19/23 History cloNIDine HCL [Catapres] 0.2 mg PO DAILY PRN 08/19/23 08/19/23 History hydrALAZINE HCL [Apresoline] 100 mg PO DAILY PRN 08/19/23 08/19/23 History Allergies Allergy/AdvReac Type Severity Reaction Status Date / Time clindamycin Allergy Anaphylaxis Verified 12/25/23 19:34 Physical Exam Vitals: Vital Signs Temp Pulse Resp BP Pulse Ox 06/15/24 09:41 18 06/15/24 08:45 82 18 183/89 97 06/15/24 07:33 97.9 F 80 18 173/91 98 06/15/24 07:07 98.7 F 100 20 210/88 97 Intake and Output 06/14/24 06/15/24 06/15/24 22:59 06:59 14:59 Other: Weight 90.718 kg GENERAL: The patient is alert and oriented x3, not in any acute distress. Well developed, well nourished. HEENT: Pupils are round and equally reacting to light. EOMI. No scleral icterus. No conjunctival pallor. Normocephalic, atraumatic. No pharyngeal erythema. No thyromegaly. CARDIOVASCULAR: S1 and S2 present. No murmurs, rubs, or gallops. PULMONARY: Chest is clear to auscultation, no wheezing , no crackles. ABDOMEN: Soft, nontender, nondistended, normoactive bowel sounds. No palpable organomegaly. MUSCULOSKELETAL: No joint swelling or deformity. EXTREMITIES: No cyanosis, clubbing, or pedal edema. NEUROLOGICAL: Gross neurological examination did not reveal any focal deficits. SKIN: No rashes. no petechiae. Results CBC & Chem 7: 06/15/24 07:41 06/15/24 07:41 Labs: Abnormal Lab Results - Last 24 Hours (Table) 06/15/24 06/15/24 06/15/24 Range/Units 07:41 07:41 07:41 RBC 3.40 L (4.30-5.90) m/uL Hgb 10.7 L (13.0-17.5) gm/dL Hct 33.1 L (39.0-53.0) % Lymphocytes # 0.9 L (1.0-4.8) k/uL Chloride 112 H (98-107) mmol/L Carbon Dioxide 17 L (22-30) mmol/L BUN 90 H (9-20) mg/dL Creatinine 6.92 H (0.66-1.25) mg/dL Calcium 8.2 L (8.4-10.2) mg/dL Troponin I 0.232 H* (0.000-0.034) ng/mL Assessment and Plan Assessment: Acute diastolic CHF Elevated troponin secondary to above End-stage renal disease on hemodialysis Nonadherence to treatment Diabetes mellitus Hypertension Hyperlipidemia History of osteoarthritis Hypothyroidism Plan: Consult nephrology to check and resume for dialysis Cardiology consult Resume antihypertensive medication morning, once verified by pharmacy Hydralazine as needed Labs and medication were reviewed.. Continue same treatment. Continue with symptomatic treatment. Resume home medication. Monitor lytes and vitals. DVT and GI prophylaxis. Further recommendations depends on the clinical course of the patient DVT prophylaxis: Subcutaneous heparin GI Prophylaxis: Pepcid Prognosis is guarded
--- NOTE | 2024-06-15 11:11 | P.NPCON ---
History of Present Illness - Reason for Consult end stage renal disease - History of Present Illness Reason for consultation: End-stage renal disease History of present illness: Patient is a 68-year-old male seen in renal consultation for end-stage renal disease. He is maintained on hemodialysis on Monday schedule. Patient has a maturing left upper extremity fistula and a right chest permacath which is currently being used for hemodialysis. Patient came to the hospital due to worsening shortness of breath which she noticed with walking yesterday. Last hemodialysis was on Monday. Patient states he went up [place] to see his grandson and did not get dialysis this past week. He denies chest pain. He does have longstanding history of diabetes. Denies history of coronary artery disease. He does make urine. Blood pressure is high and states he forgets to take his blood pressure meds often. No fever or chills. No cough. Vital signs are stable. General: No acute distress. HEENT: Head exam is unremarkable. LUNGS: No audible rhonchi or wheezes. HEART: Rate and Rhythm are regular. ABDOMEN: Nontender. EXTREMITITES: No edema. Past Medical History Past Medical History: COPD, Diabetes Mellitus, Eye Disorder, Hyperlipidemia, Hyp ertension, Myocardial Infarction ([place]), Osteoarthritis (OA), Renal Disease, Sleep Apnea/CPAP/BIPAP Additional Past Medical History / Comment(s): IDDM,Diabetic retinopathy, GLAU COMA. HEMODIALYSIS ,-4 hours-access rt chest port. USES CPAP-machine currently not working calling [facility] Last Myocardial Infarction Date:: 2014 History of Any Multi-Drug Resistant Organisms: None Reported Past Surgical History: Joint Replacement, Tonsillectomy Additional Past Surgical History / Comment(s): rt total hip replacement, lasik eye surgery. FX JAW WIRED IN 1989,failed av fistula left upper arm Past Anesthesia/Blood Transfusion Reactions: Previous Problems w/ Anesthesia Additional Past Anesthesia/Blood Transfusion Reaction / Comment(s): pt states "cardiac arrest during hip replacement surgery with Dr Franklin at [facility] in 2014" Past Psychological History: No Psychological Hx Reported Smoking Status: Former smoker Past Alcohol Use History: None Reported Past Drug Use History: None Reported - Past Family History Sister(s) Family Medical History: Cancer Additional Family Medical History / Comment(s): ovarian CA, lung CA Brother(s) Family Medical History: Cancer Additional Family Medical History / Comment(s): prostate CA Medications and Allergies Home Medications Medication Instructions Recorded Confirmed Type Tiotropium [place] [Spiriva 2 puff INHALATION RT-DAILY 11/03/14 08/19/23 History Respimat] Latanoprost/Pf [Latanoprost 0.005% 1 drop BOTH EYES HS 05/23/19 08/19/23 History Eye Drop] Atorvastatin Calcium [Lipitor] 80 mg PO HS 04/15/22 08/19/23 History Dorzolamide 2% [Trusopt 2%] 1 drop BOTH EYES DAILY 04/15/22 08/19/23 History Insulin Aspart Prot/Insuln Asp 1 - 90 unit SQ BID-W/MEALS 04/15/22 08/19/23 History [NovoLOG MIX 70-30 Flexpen] cloNIDine HCL [Catapres] 0.2 mg PO BID 04/15/22 08/19/23 History hydrALAZINE HCL [Apresoline] 100 mg PO BID 04/15/22 08/19/23 History Calcium Carbonate [Tums] 500 mg PO TID-W/MEALS 08/19/23 08/19/23 History Losartan [Cozaar] 50 mg PO DAILY 08/19/23 08/19/23 History Omeprazole [PriLOSEC] 20 mg PO BID 08/19/23 08/19/23 History Sertraline [Zoloft] 25 mg PO DAILY PRN 08/19/23 08/19/23 History amLODIPine [Norvasc] 5 mg PO DAILY 08/19/23 08/19/23 History cloNIDine HCL [Catapres] 0.2 mg PO DAILY PRN 08/19/23 08/19/23 History hydrALAZINE HCL [Apresoline] 100 mg PO DAILY PRN 08/19/23 08/19/23 History Allergies Allergy/AdvReac Type Severity Reaction Status Date / Time clindamycin Allergy Anaphylaxis Verified 06/15/24 10:41 Physical Exam Vitals: Vital Signs Temp Pulse Resp BP Pulse Ox 06/15/24 11:03 84 18 191/101 100 06/15/24 09:41 18 06/15/24 08:45 82 18 183/89 97 06/15/24 07:33 97.9 F 80 18 173/91 98 06/15/24 07:07 98.7 F 100 20 210/88 97 Intake and Output 06/14/24 06/15/24 06/15/24 22:59 06:59 14:59 Other: Weight 90.718 kg Results - Lab Results Most recent lab results Calcium 8.2 mg/dL (8.4-10.2) L 06/15/24 07:41 Magnesium 2.1 mg/dL (1.6-2.3) 06/15/24 07:41 06/15/24 07:41 06/15/24 07:41 Assessment and Plan Plan: Assessment: 1. End-stage renal disease maintained on hemodialysis on Monday schedule via permacath. Has a maturing left upper extremity AV fistula. 2. Volume overload. 3. Noncompliance with hemodialysis. 4. Diabetes mellitus. 5. Hypertension with chronic kidney disease. Partially due to volume overload. 6. Metabolic acidosis secondary to chronic kidney disease and missed dialysis. Plan: Hemodialysis today. Resume home dose clonidine and Cozaar. Check phosphorus level. Stressed multiple times patient to be compliant with hemodialysis treatment and medications outpatient. Thank you for the consultation. I will continue to follow the patient with you during his hospital stay.
[2024-06-15] MEDS: LOSARTAN 25 MG TAB PO SCH (11:26)
[2024-06-15] MEDS: cloNIDine HCL 0.2 MG TAB PO STA (16:05)
[2024-06-15] MEDS: hydrALAZINE HCL 50 MG TAB PO SCH ×2 (16:08→21:10)
[2024-06-15 18:10] LABS: Glucose,Whole Blood 106 mg/dL (70-110)
[2024-06-15] MEDS: INSULN ASP PRT/INSULIN ASPART 100 UNIT/ML 10 ML VIAL SQ SCH (18:17)
[2024-06-15 20:03] LABS: Glucose,Whole Blood 182 mg/dL (70-110)
[2024-06-15] MEDS: ATORVASTATIN 80 MG TAB PO SCH (21:09)
[2024-06-15] MEDS: cloNIDine HCL 0.2 MG TAB PO SCH (21:09)
[2024-06-15] MEDS: FAMOTIDINE 20 MG/2 ML VIAL IV SCH (21:10)
[2024-06-15] MEDS: HEPARIN SODIUM,PORCINE 5,000 UNIT/ML 1 ML VIAL SQ SCH (21:10)
[2024-06-16 05:58] LABS: Glucose,Whole Blood 54 mg/dL (70-110)
[2024-06-16 06:12] LABS: Glucose,Whole Blood 79 mg/dL (70-110)
[2024-06-16] MEDS: SERTRALINE 50 MG TAB PO SCH (08:48)
[2024-06-16] MEDS: LATANOPROST 0.005% OPHTH DROPS 2.5 ML BTL BOTH EYES SCH (08:49)
[2024-06-16] MEDS: DORZOLAMIDE HCL 2% DROPS 10 ML BTL BOTH EYES SCH (08:49)
[2024-06-16] MEDS ORDERED: LOSARTAN 25 MG TAB PO SCH (09:00)
--- NOTE | 2024-06-16 10:36 | P.PN ---
Subjective Patient is seen in follow-up for end-stage renal disease. He is maintained on hemodialysis on Monday schedule. Tolerated 3 L ul trafiltration yesterday. Hemodynamically stable. Denies chest pain or shortness of breath. Vital signs are stable. General: No acute distress. HEENT: Head exam is unremarkable. LUNGS: No audible rhonchi or wheezes. HEART: Rate and Rhythm are regular. ABDOMEN: Obese, nontender. EXTREMITITES: No edema. Objective - Vital Signs Vital signs: Vital Signs Temp 98.0 F 06/15/24 19:58 Pulse 75 06/16/24 08:30 Resp 16 06/16/24 08:30 BP 134/63 06/16/24 08:30 Pulse Ox 99 06/16/24 08:30 FiO2 Intake & Output 06/15/24 06/16/24 06/16/24 18:59 06:59 18:59 Intake Total 400 337 Output Total 6600 100 Balance -6200 237 Weight 90.718 kg 92.03 kg Intake: Oral 337 Hemodialysis 400 Output: Urine 200 100 Hemodialysis 3400 Hemodialysis Net Amount 3000 Other: Voiding Method Urinal Urinal - Labs CBC & Chem 7: 06/15/24 07:41 06/15/24 07:41 Labs: Abnormal Lab Results - Last 24 Hours (Table) 06/15/24 06/15/24 06/15/24 Range/Units 11:36 15:18 20:01 POC Glucose (mg/dL) 182 H (70-110) mg/dL Phosphorus (2.5-4.5) mg/dL Troponin I 0.216 H* 0.183 H* (0.000-0.034) ng/mL 06/16/24 06/16/24 Range/Units 05:52 07:13 POC Glucose (mg/dL) 54 L (70-110) mg/dL Phosphorus 6.3 H (2.5-4.5) mg/dL Troponin I (0.000-0.034) ng/mL Assessment and Plan Plan: Assessment: 1. End-stage renal disease maintained on hemodialysis on Monday schedule via permacath. Has a maturing left upper extremity AV fistula. 2. Volume overload. Improved with ultrafiltration. 3. Noncompliance with hemodialysis. 4. Diabetes mellitus. 5. Hypertension with chronic kidney disease. Partially due to volume overload. Improved. 6. Metabolic acidosis secondary to chronic kidney disease and missed dialysis. Expect improvement postdialysis. 7. Chronic kidney disease mineral bone disease. Phosphorus level 6.3. Plan: Additional hemodialysis treatment tomorrow. Add PhosLo. Stressed multiple times patient to be compliant with hemodialysis treatment and medications outpatient.
[2024-06-16 11:49] LABS: Glucose,Whole Blood 173 mg/dL (70-110)
--- NOTE | 2024-06-16 12:09 | P.PN ---
Subjective This is a pleasant 68 years old male with past medical history of multiple medical problems as below, including end-stage renal disease on hemodialysis Patient presents because of exertional dyspnea for the last 2 to 3 days, patient could not specify but he said [place] his grandson and he missed his hemodialysis during this. But he was taking his pills as he supposed to be He denies chest pain. Occasional coughing. No abdominal pain vomiting or diarrhea. He makes urine still but he denies dysuria or urgency. No headache dizziness weakness or numbness. He walks using a walker His flight director Dr. Gottlieb. His PCP is Dr. Stanton he is afebrile and vitals are stable except for blood pressure was elevated 210/88 on admission, currently feels better 183/89 His creatinine 6.9, hemoglobin 10.7, rest of CBC, BMP liver enzymes and INR were unremarkable proBNP is elevated 21,700 Chest x-ray showing no acute process, I reviewed chest x-ray by myself and agree 06/16 Patient states that his dyspnea is better Still denies chest pain He has some ulcers on the sole of the left foot at the base of the toe. No evidence of cellulitis or purulent discharge Patient continued on Lipitor added antihypertensive medication clonidine, hydralazine and losartan Cardiology team consult already placed Objective - Vital Signs Vital signs: Vital Signs Temp 98.0 F 06/15/24 19:58 Pulse 75 06/16/24 08:30 Resp 16 06/16/24 08:30 BP 134/63 06/16/24 08:30 Pulse Ox 99 06/16/24 08:30 FiO2 Intake & Output 06/15/24 06/16/24 06/16/24 18:59 06:59 18:59 Intake Total 400 337 Output Total 6600 100 Balance -6200 237 Weight 90.718 kg 92.03 kg Intake: Oral 337 Hemodialysis 400 Output: Urine 200 100 Hemodialysis 3400 Hemodialysis Net Amount 3000 Other: Voiding Method Urinal Urinal - Exam GENERAL: The patient is alert and oriented x3, not in any acute distress. Well developed, well nourished. HEENT: Pupils are round and equally reacting to light. EOMI. No scleral icterus. No conjunctival pallor. Normocephalic, atraumatic. No pharyngeal erythema. No thyromegaly. CARDIOVASCULAR: S1 and S2 present. No murmurs, rubs, or gallops. PULMONARY: Chest is clear to auscultation, no wheezing , no crackles. ABDOMEN: Soft, nontender, nondistended, normoactive bowel sounds. No palpable organomegaly. MUSCULOSKELETAL: No joint swelling or deformity. EXTREMITIES: No cyanosis, clubbing, or pedal edema. -Ulcer with raised edges at the base of the left first toe sole. No discharge or surrounding cellulitis NEUROLOGICAL: Gross neurological examination did not reveal any focal deficits. SKIN: No rashes. no petechiae. - Labs CBC & Chem 7: 06/15/24 07:41 06/15/24 07:41 Labs: Abnormal Lab Results - Last 24 Hours (Table) 06/15/24 06/15/24 06/15/24 Range/Units 11:36 15:18 20:01 POC Glucose (mg/dL) 182 H (70-110) mg/dL Phosphorus (2.5-4.5) mg/dL Troponin I 0.216 H* 0.183 H* (0.000-0.034) ng/mL 06/16/24 06/16/24 06/16/24 Range/Units 05:52 07:13 11:48 POC Glucose (mg/dL) 54 L 173 H (70-110) mg/dL Phosphorus 6.3 H (2.5-4.5) mg/dL Troponin I (0.000-0.034) ng/mL Assessment and Plan Assessment: Acute diastolic CHF Elevated troponin secondary to above End-stage renal disease on hemodialysis Left diabetic ulcer on the left toe sole Nonadherence to treatment Diabetes mellitus Hypertension Hyperlipidemia History of osteoarthritis Hypothyroidism Plan: Consult nephrology to check and resume for dialysis Cardiology consult Resume antihypertensive medication morning, once verified by pharmacy Hydralazine as needed Consult vascular surgery team Dr. Walter for possible debridement Labs and medication were reviewed.. Continue same treatment. Continue with symptomatic treatment. Resume home medication. Monitor lytes and vitals. DVT and GI prophylaxis. Further recommendations depends on the clinical course of the patient DVT prophylaxis: Subcutaneous heparin GI Prophylaxis: Pepcid Prognosis is guarded
[2024-06-16] MEDS: CALCIUM ACETATE 667 MG TAB PO SCH (12:34)
[2024-06-16] MEDS: FOLIC ACID-VIT B COMPLEX-VIT C 1 CAP PO SCH (12:35)
--- NOTE | 2024-06-16 13:49 | P.CRDCN ---
History of Present Illness Consult date: 06/16/24 History of present illness: HISTORY OF PRESENTING ILLNESS: Patient presented to the hospital because of increased worsening shortness of breath. Clinically he appeared volume overloaded with concerns of acute hypoxic respiratory failure on admission. Apparently patient is hemodialysis dependent and he [place] 1 [place] Patient received hemodialysis and thereafter he is feeling symptomatically better. Cardiology was consulted for CHF management. Admission Labs: Hb 10.7, bicarb 17, BUN 90, creatinine 6.92, troponin elevated at 1.83, repeat 0.216, repeat 0.232 Admission EKG: Sinus rhythm heart rate 81 bpm, CXR shows no significant consolidation or congestion. Minimal interstitial marking, dialysis Kike catheter in right subclavian Prior cardiac testing: Echo from 03/2022 shows an EF of 55%, moderate MR, mild pulmonary hypertension severe LA dilatation REVIEW OF SYSTEMS: 14 point review of system is negative except what is mentioned above in HPI. PHYSICAL EXAMINATION: Neck: Brisk carotid upstroke, no jugular venous distention. Lungs: Clear to auscultation. Heart: Regular rate and rhythm, S1-S2, , no murmur or rub. Abdomen: Soft nontender, positive bowel sounds. Extremities: No edema, intact distal pulses. Neuro: Alert, oritented, no focal deficits. Detailed neuro exam was not performed. ASSESSMENT: # Acute hypoxic respiratory failure due to fluid overload from missed dialysis # Acute HFpEF exacerbation # Elevated troponin, likely type II NSTEMI from HFpEF exacerbation along with poor renal clearance # ESRD on hemodialysis # Left toe sole diabetic ulcer. Suspect PAD # Type 2 diabetes, hypertension, dyslipidemia, hypothyroidism PLAN: For hypertension patient is on clonidine 0.2 mg twice daily, hydralazine 100 mg 3 times daily, losartan 25 mg daily I would recommend reducing clonidine to 0.1 mg twice daily with a goal of discontinuing it completely. Start clonidine 12.5 mg twice daily. Continue hydralazine and losartan Continue Lipitor. Add aspirin 81 mg Obtain updated echocardiogram If no recent ischemic evaluation on outpatient records, consider outpatient stress test Ryan Kulkarni MD, FACC, RPVI Thank you for allowing [facility] to participate in thi s patient's care. Feel free to reach out in case of any followup questions. Past Medical History Past Medical History: COPD, Diabetes Mellitus, Eye Disorder, Hyperlipidemia, Hypertension, Myocardial Infarction (AK), Osteoarthritis (OA), Renal Disease, Sleep Apnea/CPAP/BIPAP Additional Past Medical History / Comment(s): IDDM,Diabetic retinopathy, GLAUCOMA. HEMODIALYSIS TU,TH,SA-4 hours-access rt chest port. USES CPAP-machine currently not working calling [facility] Last Myocardial Infarction Date:: 2014 History of Any Multi-Drug Resistant Organisms: None Reported Past Surgical History: Joint Replacement, Tonsillectomy Additional Past Surgical History / Comment(s): rt total hip replacement, lasik eye surgery. FX JAW WIRED IN 1989,failed av fistula left upper arm Past Anesthesia/Blood Transfusion Reactions: Previous Problems w/ Anesthesia Additional Past Anesthesia/Blood Transfusion Reaction / Comment(s): pt states "cardiac arrest during hip replacement surgery with Dr Franklin at [facility] in 2014" Past Psychological History: No Psychological Hx Reported Smoking Status: Current every day smoker Past Alcohol Use History: None Reported Additional Past Alcohol Use History / Comment(s): quit smoking approx 2009,smoked approx since age 13,<1ppd, started smoking again in april after Past Drug Use History: None Reported - Past Family History Sister(s) Family Medical History: Cancer Additional Family Medical History / Comment(s): ovarian CA, lung CA Brother(s) Family Medical History: Cancer Additional Family Medical History / Comment(s): prostate CA Medications and Allergies Home Medications Medication Instructions Recorded Confirmed Type Latanoprost/Pf [Latanoprost 0.005% 1 drop BOTH EYES DAILY 05/23/19 06/15/24 H istory Eye Drop] Atorvastatin Calcium [Lipitor] 80 mg PO HS 04/15/22 06/15/24 History Dorzolamide 2% [Trusopt 2%] 1 drop BOTH EYES DAILY 04/15/22 06/15/24 History Insulin Aspart Prot/Insuln Asp 68 unit SQ BID-W/MEALS 04/15/22 06/15/24 History [NovoLOG MIX 70-30 Flexpen] cloNIDine HCL [Catapres] 0.2 mg PO BID 04/15/22 06/15/24 History hydrALAZINE HCL [Apresoline] 100 mg PO BID 04/15/22 06/15/24 History Folic Acid/Vit B Complex and C 0.8 mg PO DAILY 06/15/24 06/15/24 History [Marguerite-Ingris Tablet] Losartan [Cozaar] 25 mg PO DAILY 06/15/24 06/15/24 History Sertraline [Zoloft] 50 mg PO DAILY 06/15/24 06/15/24 History Allergies Allergy/AdvReac Type Severity Reaction Status Date / Time clindamycin Allergy Anaphylaxis Verified 06/15/24 10:41 Physical Exam Vitals: Vital Signs Temp Pulse Pulse Resp BP BP Pulse Ox 06/16/24 12:00 78 16 158/71 97 06/16/24 08:30 75 16 134/63 99 06/16/24 04:31 66 16 125/51 100 06/15/24 23:16 86 16 117/69 100 06/15/24 19:58 98.0 F 92 18 184/79 96 06/15/24 17:57 87 18 156/67 98 06/15/24 16:26 98.4 F 81 18 166/99 06/15/24 16:03 83 18 178/93 99 06/15/24 14:52 75 18 185/85 95 Intake and Output 06/15/24 06/16/24 06/16/24 22:59 06:59 14:59 Intake Total 737 Output Total 6700 0 Balance -5963 0 Intake: Oral 337 Hemodialysis 400 Output: Urine 300 0 Hemodialysis 3400 Hemodialysis Net Amount 3000 Other: Voiding Method Urinal Urinal Urinal Weight 90.718 kg 92.03 kg Results 06/15/24 07:41 06/15/24 07:41 Cardiac Enzymes 06/15/24 06/15/24 Range/Units 11:36 15:18 Troponin I 0.216 H* 0.183 H* (0.000-0.034) ng/mL Current Medications Generic Name Dose Route Start Last Admin Trade Name Freq PRN Reason Stop Dose Admin Acetaminophen 650 mg 06/15/24 09:56 Acetaminophen Tab 325 Mg Tab PO Q6HR PRN Mild Pain or Fever > 100.5 Hydrocodone Bitart/Acetaminophen 1 each 06/15/24 09:56 Hydrocodone/Apap 5-325mg 1 Each Tab PO Q4HR PRN Moderate Pain (Scale 4 to 6) Atorvastatin Calcium 80 mg 06/15/24 21:00 06/15/24 21:09 Atorvastatin 80 Mg Tab PO 80 mg HS DESHAWN Administration Calcium Acetate 667 mg 06/16/24 12:30 06/16/24 12:34 Calcium Acetate 667 Mg Tab PO 667 mg TID-W/MEALS DESHAWN Administration Clonidine 0.2 mg 06/15/24 21:00 06/16/24 08:48 Clonidine Hcl 0.2 Mg Tab PO 0.2 mg BID DESHAWN Administration Dorzolamide HCl 1 drops 06/16/24 09:00 06/16/24 08:49 Dorzolamide Hcl 2% Drops 10 Ml Btl BOTH EYES 1 drops DAILY DESHAWN Administration Famotidine 10 mg 06/15/24 21:00 06/16/24 08:48 Famotidine 20 Mg/2 Ml Vial IV 10 mg Q12HR DESHAWN Administration Heparin Sodium (Porcine) 5,000 unit 06/15/24 21:00 06/16/24 08:48 Heparin Sodium,Porcine 5,000 Unit/Ml 1 Ml Vial SQ 5,000 unit Q12HR DESHAWN Administration Hydralazine HCl 10 mg 06/15/24 10:14 Hydralazine Hcl 20 Mg/Ml 1 Ml Vial IVP Q6HR PRN Blood Pressure - High Hydralazine HCl 100 mg 06/15/24 16:00 06/16/24 08:48 Hydralazine Hcl 50 Mg Tab PO 100 mg TID DESHAWN Administration Insulin Aspart 68 unit 06/15/24 17:30 06/16/24 06:25 Insuln Asp Prt/Insulin Aspart 100 Unit/Ml 10 Ml Vial SQ Not Given BID-W/MEALS DESHAWN Latanoprost 1 drops 06/16/24 09:00 06/16/24 08:49 Latanoprost 0.005% Ophth Drops 2.5 Ml Btl BOTH EYES 1 drops DAILY DESHAWN Administration Losartan Potassium 25 mg 06/15/24 11:15 06/16/24 08:47 Losartan 25 Mg Tab PO 25 mg DAILY DESHAWN Administration Morphine Sulfate 4 mg 06/15/24 09:56 Morphine Sulfate 4 Mg/Ml Syringe IV Q4HR PRN Severe Pain (Scale 7 to 10) Multivit/Ca Carb/B Cmplx/FA/Prenat 1 each 06/16/24 09:00 06/16/24 12:35 Folic Acid-Vit B Complex-Vit C 1 Cap PO 1 each DAILY DESHAWN Administration Naloxone HCl 0.2 mg 06/15/24 09:56 Naloxone 0.4 Mg/Ml 1 Ml Vial IV Q2M PRN Opioid Reversal Ondansetron HCl 4 mg 06/15/24 09:56 Ondansetron 4 Mg/2 Ml Vial IVP Q8HR PRN Nausea And Vomiting Sertraline HCl 50 mg 06/16/24 09:00 06/16/24 08:48 Sertraline 50 Mg Tab PO 50 mg DAILY DESHAWN Administration Intake and Output 06/15/24 06/16/24 06/16/24 22:59 06:59 14:59 Intake Total 737 Output Total 6700 0 Balance -5963 0 Intake: Oral 337 Hemodialysis 400 Output: Urine 300 0 Hemodialysis 3400 Hemodialysis Net Amount 3000 Other: Voiding Method Urinal Urinal Urinal Weight 90.718 kg 92.03 kg 06/15/24 07:41 06/15/24 07:41
[2024-06-16 16:34] LABS: Glucose,Whole Blood 227 mg/dL (70-110)
[2024-06-16] MEDS: carvediloL 12.5 MG TAB PO SCH (16:42)
[2024-06-16] MEDS: HYDROcodone/APAP 5-325MG 1 EACH TAB PO PRN (19:57)
[2024-06-16] MEDS: cloNIDine HCL 0.1 MG TAB PO SCH (19:57)
[2024-06-16 20:08] LABS: Glucose,Whole Blood 149 mg/dL (70-110)
--- NOTE | 2024-06-16 21:36 | OP ---
OPERATIVE REPORT DATE OF SERVICE : PREOPERATIVE DIAGNOSIS: Chronic callus, right foot at the base of the big toe, measurement is 3 x 2 cm. Post excision of the callus, measurement 3 x 3 x 0.5 cm. The patient was seen. Right foot was prepped and draped in the usual sterile manner. 1% lidocaine was infiltrated. Using knife, we excised the callus down to subcutaneous tissue. No active bleeding was noted. Callus was sent for deep culture, irrigated with saline. We placed Medihoney gel and pressure dressing applied. The patient tolerated the procedure well. Plan is to change the dressing daily with Medihoney gel. MMODL / IJN: [id number] /
--- NOTE | 2024-06-16 21:51 | CONS ---
DATE OF CONSULTATION: 06/16/2024 HISTORY OF PRESENT ILLNESS: This is a 68-year-old gentleman, well known to me in the past, we placed a right IJ catheter for dialysis. The patient came with history of shortness of breath. The patient has history of chronic renal failure, on dialysis. MEDICAL HISTORY: History of end-stage disease, on dialysis; history of diabetes; history of hypertension. PERSONAL HISTORY: History of smoking in the past and continued to smoke. PHYSICAL EXAMINATION: GENERAL: Patient was seen in his room. NECK: Supple. Trachea central. CHEST: Clear. A few crackles at the lung bases. 1st and second sounds present. VASCULAR: The patient had a right IJ catheter, jugular approach, and patient also has a left upper arm AV fistula graft. Femorals are 2+ bilateral. PT and DP are not palpable. EXTREMITIES: Left foot base, there is a large callus, which has raised edges. Negative for drainage. No suture present. Consulted for excision of the callus. MMODL / IJN: [id number] / RICHARD
[2024-06-17 05:59] LABS: Glucose,Whole Blood 174 mg/dL (70-110)
[2024-06-17] MEDS: FAMOTIDINE 20 MG TAB PO SCH (09:11)
[2024-06-17 11:14] LABS: Glucose,Whole Blood 58 mg/dL (70-110)
--- NOTE | 2024-06-17 11:25 | CA ---
Transthoracic Echo Report Name: Julio César Panchal Age: 68 Gender: M : 1955 Exam Date: 06/17/2024 08:04 Exam Location: [facility] Ht (in): 70 Wt (lb): 202 Ordering Physician: Ryan Kulkarni MD ([id number]) Attending/Referring Phys: Salvage [employer] Catherine Hameed RDCS Procedure CPT: Indications: chf exacerbation Cardiac Hx: Technical Quality: Contrast 1: Total Dose (mL): Contrast 2: Total Dose (mL): MEASUREMENTS (Male / Female) Normal Values 2D ECHO LV Diastolic Diameter PLAX 5.8 cm 4.2 - 5.9 / 3.9 - 5.3 cm LV Systolic Diameter PLAX 4.3 cm IVS Diastolic Thickness 1.0 cm 0.6 - 1.0 / 0.6 - 0.9 cm LVPW Diastolic Thickness 1.0 cm 0.6 - 1.0 / 0.6 - 0.9 cm LV Relative Wall Thickness 0.3 RV Internal Dim ED PLAX 4.2 cm LVOT Diameter 1.8 cm Aortic Root Diameter 3.2 cm LA Systolic Diameter LX 4.6 cm 3.0 - 4.0 / 2.7 - 3.8 cm DOPPLER LVOT Peak Velocity 93.1 cm/s LVOT Peak Gradient 3.5 mmHg LVOT Velocity Time Integral 22.4 cm LVOT Stroke Volume 55.7 cm??? LVOT Stroke Volume Index 26.6 ml/m??? MR Peak Velocity 431.2 cm/s MR Peak Gradient 74.4 mmHg Mitral E Point Velocity 93.0 cm/s Mitral A Point Velocity 123.3 cm/s Mitral E to A Ratio 0.8 MV Deceleration Time 358.5 ms MV E' Velocity 3.6 cm/s Mitral E to MV E' Ratio 26.0 TR Peak Velocity 336.8 cm/s TR Peak Gradient 45.4 mmHg FINDINGS Left Ventricle Left ventricular ejection fraction is estimated at 50-55 %. Left ventricular cavity size normal. Left ventricular wall thickness normal. Right Ventricle Mild right ventricular dilatation. Moderate pulmonary hypertension. Right Atrium Normal right atrial size. No right atrial thrombus or mass seen. Left Atrium Mildly increased left atrial diameter. No left atrial thrombus or mass present. Mitral Valve Structurally normal mitral valve. Trace mitral regurgitation. Aortic Valve Trileaflet aortic valve. Thickened aortic valve without stenosis. Tricuspid Valve Structurally normal tricuspid valve. Mild tricuspid regurgitation. Pulmonic Valve Pulmonic valve not well visualized. No pulmonic regurgitation. Pericardium No pericardial effusion. Aorta Normal size aortic root and proximal ascending aorta. CONCLUSIONS Left ventricular ejection fraction is estimated at 50-55 % RVSP 45 Mild right ventricular dilatation. Trace mitral regurgitation. Mild tricuspid regurgitation. No pericardial effusion. Previewed by: Dr. Omid Garcia DO (Electronically Signed) Final Date: 17 June 2024 11:24
[2024-06-17 11:28] LABS: Glucose,Whole Blood 92 mg/dL (70-110)
--- NOTE | 2024-06-17 12:31 | P.PN ---
Progress Note - Text 68-year-old gentleman history of chronic renal failure with dialysis through the right IJ catheter. Patient had a callus on the plantar aspect aspect of the foot we excised the callus noted continue with Medihoney gel this should be changed on daily basis
[2024-06-17] MEDS ORDERED: CALCIUM CARBONATE 500 MG CHEWABLE PO PRN (12:34)
[2024-06-17] MEDS: ONDANSETRON 4 MG/2 ML VIAL IVP PRN (12:37)
--- NOTE | 2024-06-17 14:09 | P.PN ---
Subjective HISTORY OF PRESENT ILLNESS: Patient presented to the hospital because of increased worsening shortness of breath. Clinically he appeared volume overloaded with concerns of acute hypoxic respiratory failure on admission. Apparently patient is hemodialysis dependent and he missed 1 [place] of [place] Patient received hemodialysis and thereafter he is feeling symptomatically better. Cardiology was consulted for CHF management. Admission Labs: Hb 10.7, bicarb 17, BUN 90, creatinine 6.92, troponin elevated at 1.83, repeat 0.216, repeat 0.232 Admission EKG: Sinus rhythm heart rate 81 bpm, CXR shows no significant consolidation or congestion. Minimal interstitial marking, dialysis Kike catheter in right subclavian Prior cardiac testing: Echo from 03/2022 shows an EF of 55%, moderate MR, mild pulmonary hypertension severe LA dilatation 06/17/2024 Patient examined this morning at the bedside. Patient currently denies chest pain or pressure. He denies shortness of breath. Vital signs are stable. 2D echo is currently pending. PHYSICAL EXAM: VITAL SIGNS: Reviewed. GENERAL: Well-developed in no acute distress. NECK: Supple. No JVD or thyromegaly LUNGS: Respirations even and unlabored. Lungs essentially clear to auscultation bilaterally. HEART: Regular rate and rhythm. S1 and S2 heard. EXTREMITIES: Normal range of motion. No clubbing or cyanosis. Peripheral pulses intact. No lower extremity edema ASSESSMENT: # Acute hypoxic respiratory failure due to fluid overload from missed dialysis # Acute on chronic HFpEF exacerbation # Elevated troponin, likely type II NSTEMI from HFpEF exacerbation along with poor renal clearance # ESRD on hemodialysis # Left toe sole diabetic ulcer. Suspect PAD # Type 2 diabetes, hypertension, dyslipidemia, hypothyroidism PLAN: 2D echo ordered. Wait results. Continue current cardiac medications Patient is stable for discharge today pending echo results Consider outpatient stress test Patient to follow-up postdischarge with Dr. Saavedra Nurse practitioner note has been reviewed by physician. Signing provider agrees with the documented findings, assessment, and plan of care documented by PRODUCTION SUPPORT CONSULTANT as a scribe. Objective - Vital Signs Vital signs: Vital Signs Temp 98.2 F 06/17/24 12:00 Pulse 74 06/17/24 12:00 Resp 18 06/17/24 12:00 BP 182/73 06/17/24 12:00 Pulse Ox 100 06/17/24 12:00 FiO2 Intake & Output 01/06/17/24 06/17/24 18:59 06:59 18:59 Intake Total 200 Output Total 0 Balance 0 200 Weight 93.4 kg Intake: Oral 200 Output: Urine 0 Other: Voiding Method Urinal Urinal Urinal # Bowel Movements 1 - Labs CBC & Chem 7: 06/15/24 07:41 06/15/24 07:41 Labs: Abnormal Lab Results - Last 24 Hours (Table) 06/16/24 06/16/24 06/17/24 Range/Units 16:30 20:07 05:56 POC Glucose (mg/dL) 227 H 149 H 174 H (70-110) mg/dL 06/17/24 Range/Units 11:06 POC Glucose (mg/dL) 58 L (70-110) mg/dL Microbiology - Last 24 Hours (Table) 06/16/24 14:45 Gram Stain - Preliminary Foot - Left
--- NOTE | 2024-06-17 15:16 | P.PN ---
Subjective Patient is seen in follow-up for end-stage renal disease. He is maintained on hemodialysis on Monday schedule. Tolerated 3 L ul trafiltration yesterday. Hemodynamically stable. Denies chest pain or shortness of breath. Vital signs are stable. General: No acute distress. HEENT: Head exam is unremarkable. LUNGS: No audible rhonchi or wheezes. HEART: Rate and Rhythm are regular. ABDOMEN: Obese, nontender. EXTREMITITES: No edema. Objective - Vital Signs Vital signs: Vital Signs Temp 98.2 F 06/17/24 12:00 Pulse 74 06/17/24 12:00 Resp 18 06/17/24 12:00 BP 182/73 06/17/24 12:00 Pulse Ox 100 06/17/24 12:00 FiO2 Intake & Output 06/16/24 06/17/24 06/17/24 18:59 06:59 18:59 Intake Total 440 Output Total 0 Balance 0 440 Weight 93.4 kg Intake: Oral 440 Output: Urine 0 Other: Voiding Method Urinal Urinal Urinal # Bowel Movements 1 - Labs CBC & Chem 7: 06/15/24 07:41 06/15/24 07:41 Labs: Abnormal Lab Results - Last 24 Hours (Table) 06/16/24 06/16/24 06/17/24 Range/Units 16:30 20:07 05:56 POC Glucose (mg/dL) 227 H 149 H 174 H (70-110) mg/dL 06/17/24 Range/Units 11:06 POC Glucose (mg/dL) 58 L (70-110) mg/dL Microbiology - Last 24 Hours (Table) 06/16/24 14:45 Gram Stain - Preliminary Foot - Left Assessment and Plan Plan: Assessment: 1. End-stage renal disease maintained on hemodialysis on Monday schedule via permacath. Has a maturing left upper extremity AV fistula. 2. Volume overload. Improved with ultrafiltration. 3. Noncompliance with hemodialysis. 4. Diabetes mellitus. 5. Hypertension with chronic kidney disease. Partially due to volume overload. Improved. 6. Metabolic acidosis secondary to chronic kidney disease and missed dialysis. Expect improvement postdialysis. 7. Chronic kidney disease mineral bone disease. Phosphorus level 6.3. On PhosLo. Plan: Extra short hemodialysis treatment today. Another treatment tomorrow per his outpatient schedule. Stressed multiple times patient to be compliant with hemodialysis treatment and medications outpatient. Potential discharge after dialysis today.
[2024-06-17 16:12] LABS: Glucose,Whole Blood 97 mg/dL (70-110)
[2024-06-17 19:29] VITALS: BP 185/75; PULSE 61; RESP 17; TEMP 98
--- NOTE | 2024-06-17 23:04 | P.DS ---
Providers Date of admission: 06/16/24 12:10 Attending physician: Cullen Santoro MD Consults: 06/15/24 09:56 Consult Physician Urgent Consulting Provider: Brad Cervantes Consult Reason/Comments: Dialysis patient Do you want consulting provider notified?: Yes Consult Physician Urgent Consulting Provider: Ryan Kulkarni Consult Reason/Comments: Elevated trop, fluid overload Do you want consulting provider notified?: Yes 06/16/24 12:09 Consult Physician Routine Consulting Provider: Dillan Walter Consult Reason/Comments: foot ulcer at the sole of the foot Do you want consulting provider notified?: Yes Primary care physician: Haja Stanton [facility] Course: Diagnoses: Acute diastolic CHF Elevated troponin secondary to above End-stage renal disease on hemodialysis Left callus lesion on the left toe sole status post excision of the callosity. No evidence of infection and no need for antibiotic Nonadherence to treatment Diabetes mellitus Hypertension Hyperlipidemia History of osteoarthritis Hypothyroidism Hospital course: This is a pleasant 68 years old male with past medical history of multiple medical problems as below, including end-stage renal disease on hemodialysis Patient presents because of exertional dyspnea for the last 2 to 3 days, patient could not specify but he said he was up [place] for the last week to visit his grandson and he missed his hemodialysis during this. But he was taking his pills as he supposed to be. Also patient has his recently few months ago and he feels little depressed but he denies homicidal or suicidal ideation Patient presents with shortness of breath secondary to diastolic CHF acute exacerbation related to his missed dialysis. Patient evaluated by setter juice packaging machines and ruby engineer and resumed his hemodialysis with improvement of his symptoms on the day of discharge he denies chest pain or dyspnea or any other new complaint He agrees to go home today Patient was cleared for discharge by setter juice packaging machines and ruby engineer Also patient underwent debridement of a callus lesion on the sole of his left big toe. Dressing is in place, vascular surgery will follow on the case. No need for antibiotic as there is no evidence of infection. Patient is able to ambulate. Patient [facility]. Problems and management plan were discussed with the patient and he verbalized understanding and acceptance Patient was found stable and can be discharged home in guarded prognosis however he needs follow-up as an outpatient. Patient was instructed to follow up with PCP Dr. Stanton within one week and patient agrees Patient was instructed to follow-up with Dr. Gottlieb in 1 week, with Dr. Walter in 2 to 3 days, and ruby engineer Dr. Merchant in 1 week and he agrees Physical exam Gen: patient is a AAOx3, no distress CVS: S1-S2, RRR, no murmur Lungs: B/L CTA, no wheezing Abdomen: soft, no distention, no tenderness, positive bowel sounds Extremity: no leg edema or induration Time spent more than 35 minutes Patient Condition at Discharge: Fair Plan - Discharge Summary New Discharge Prescriptions: New Calcium Acetate [PhosLo] 667 mg PO TID-W/MEALS #90 tab Acetaminophen Tab [Tylenol] 650 mg PO Q6HR PRN tab PRN Reason: Mild Pain Or Fever > 100.5 hydrALAZINE HCL [Apresoline] 100 mg PO TID #90 tab cloNIDine HCL [Catapres] 0.1 mg PO BID #60 tab carvediloL [Coreg*] 12.5 mg PO BID-W/MEALS #60 tab Continue Latanoprost/Pf [Latanoprost 0.005% Eye Drop] 1 drop BOTH EYES DAILY Insulin Aspart Prot/Insuln Asp [NovoLOG MIX 70-30 Flexpen] 68 unit SQ BID- W/MEALS Dorzolamide 2% [Trusopt 2%] 1 drop BOTH EYES DAILY Atorvastatin Calcium [Lipitor] 80 mg PO HS Folic Acid/Vit B Complex and C [Marguerite-Ingris Tablet] 0.8 mg PO DAILY Losartan [Cozaar] 25 mg PO DAILY #30 tab Sertraline [Zoloft] 50 mg PO DAILY Discontinued hydrALAZINE HCL [Apresoline] 100 mg PO BID cloNIDine HCL [Catapres] 0.2 mg PO BID Discharge Medication List Latanoprost/Pf [Latanoprost 0.005% Eye Drop] 1 drop BOTH EYES DAILY 05/23/19 [History] Atorvastatin Calcium [Lipitor] 80 mg PO HS 04/15/22 [History] Dorzolamide 2% [Trusopt 2%] 1 drop BOTH EYES DAILY 04/15/22 [History] Insulin Aspart Prot/Insuln Asp [NovoLOG MIX 70-30 Flexpen] 68 unit SQ BID- W/MEALS 04/15/22 [History] Folic Acid/Vit B Complex and C [Marguerite-Ingris Tablet] 0.8 mg PO DAILY 06/15/24 [History] Sertraline [Zoloft] 50 mg PO DAILY 06/15/24 [History] Acetaminophen Tab [Tylenol] 650 mg PO Q6HR PRN tab 06/17/24 [Rx] Calcium Acetate [PhosLo] 667 mg PO TID-W/MEALS #90 tab 06/17/24 [Rx] Losartan [Cozaar] 25 mg PO DAILY #30 tab 06/17/24 [Rx] carvediloL [Coreg*] 12.5 mg PO BID-W/MEALS #60 tab 06/17/24 [Rx] cloNIDine HCL [Catapres] 0.1 mg PO BID #60 tab 06/17/24 [Rx] hydrALAZINE HCL [Apresoline] 100 mg PO TID #90 tab 06/17/24 [Rx] Follow up Appointment(s)/Referral(s): Haja Stanton DO [Primary Care Provider] - 1-2 days (Patient to schedule follow up, as office is closed at time of discharge. Please ensure this is an appointment following a hospital stay.) Brad Cervantes DO [STAFF PHYSICIAN] - 1 Week (Patient to schedule follow up, as office is closed at time of discharge. Please ensure this is an appointment following a hospital stay.) Dillan Walter MD [STAFF PHYSICIAN] - 3 Days (Patient to schedule follow up, as office is closed at time of discharge. Please ensure this is an appointment following a hospital stay.) Wander Saavedra MD [STAFF PHYSICIAN] - 06/24/24 2:45 pm Patient Instructions/Handouts: Chronic Kidney Disease (DC), Hemodialysis (DC) Activity/Diet/Wound Care/Special Instructions: Heart healthy diet Activity is restricted till you see your doctor You need daily dressing changes for your foot infection. Please follow-up with Dr. Walter in the wound center as soon as possible upon discharge within 1 to 3 days Discharge Disposition: HOME WITH HOME HEALTH SERVICES
--- NOTE | 2024-06-19 14:20 | CDI ---
Documentation Clarification Form Date: 06/19/2024 02:13:07 PM From: Poornima Brennan Phone: Admit Date: 06/16/2024 12:10:00 PM Patient Name: Julio César Panchal Visit Number: [id number] Discharge Date: 06/17/2024 07:28:00 PM ATTENTION: The Clinical Documentation Specialists (CDI) and [facility] Coding Staff appreciate your assistance in clarifying documentation. Please respond to the clarification below the line at the bottom and electronically sign. The CDI & [facility] Coding staff will review the response and follow-up if needed. Please note: Queries are made part of the Legal Health Record. If you have any questions, please contact the author of this message via ITS. Doctor/Provider: Brad Cervantes There is documentation of mineral bone disease per Nephrology Progress Notes 06/16 and 06/17. Additional clarification is requested. History/Risk Factors: 68yo M, ESRD w noncompliance, DMII w foot ulcer, NSTEMI II, AHRF, HTN, ACDHF, metabolic acidosis, CKD mineral bone disease, former smoker Clinical Indicators: Phosphorus level 6.3 Treatment: monitored Can you please clarify the type of mineral bone disease, if possible? [ x] Renal Osteodystrophy [ ] Mineral Bone Disease, NOS [ ] Other, please specify [ ] Unable to determine (Template Last Revised: July 2020) MTDD
== END 2024-06-17 19:28 | disposition home health service (06) | DRG 280 ==
LOC: EC 07:03 → UNDOADMOB 09:56 → 3SCARD 09:56 → OBSVTOIN 06-16 12:10 → INTOOBSV 06-16 12:10
PROVIDERS: ADMIT Internal Medicine; ATTEND Internal Medicine
PROC: 0JBQ3ZZ Excision of Right Foot Subcutaneous Tissue and Fascia, Percutaneous Approach (ICD-10-PCS; principal; 2024-06-16)
DX: I13.2 Hypertensive heart and chronic kidney disease with heart failure and with stage 5 chronic kidney disease, or end stage renal disease (principal); I50.33 Acute on chronic diastolic (congestive) heart failure; I21.A1 Myocardial infarction type 2; N18.6 End stage renal disease; J96.01 Acute respiratory failure with hypoxia; E87.20 Acidosis, unspecified; Z99.2 Dependence on renal dialysis; I70.245 Atherosclerosis of native arteries of left leg with ulceration of other part of foot; E11.22 Type 2 diabetes mellitus with diabetic chronic kidney disease; F32.89 Other specified depressive episodes; E03.9 Hypothyroidism, unspecified; I70.244 Atherosclerosis of native arteries of left leg with ulceration of heel and midfoot; Z86.74 Personal history of sudden cardiac arrest; E11.51 Type 2 diabetes mellitus with diabetic peripheral angiopathy without gangrene; Z91.158 Patient's noncompliance with renal dialysis for other reason; E11.621 Type 2 diabetes mellitus with foot ulcer; Z79.4 Long term (current) use of insulin; L97.529 Non-pressure chronic ulcer of other part of left foot with unspecified severity; L84 Corns and callosities; E78.5 Hyperlipidemia, unspecified; M19.90 Unspecified osteoarthritis, unspecified site; N25.0 Renal osteodystrophy; Z96.641 Presence of right artificial hip joint; I25.2 Old myocardial infarction; Z87.891 Personal history of nicotine dependence; Z63.4 Disappearance and death of family member; Z79.899 Other long term (current) drug therapy
CPT/HCPCS: 36415; 71046; 80053; 83605; 83735; 83880; 84100; 84484; 85025; 85610; 85730; 87070; 87205; 87636; 90935; 93005; 93306; 99285

== ENCOUNTER 2024-06-30 11:39 | Inpatient (IN) | payer MEDICARE, OTHER ==
[2024-06-30] MEDS: MORPHINE SULFATE 4 MG/ML SYRINGE IVP STA (13:33)
[2024-06-30 13:48] LABS: Basophils % (A) 0 %; Eosinophils # (A) 0.2 k/uL (0-0.7); Eosinophils % (A) 1 %; HCT 31.1 % (39.0-53.0); HGB 10.1 gm/dL (13.0-17.5); Lymphocytes # (A) 0.6 k/uL (1.0-4.8); Lymphocytes % (A) 3 %; MCH 31.1 pg (25.0-35.0); MCHC 32.4 g/dL (31.0-37.0); MCV 96.1 fL (80.0-100.0); Monocytes # (A) 1.1 k/uL (0-1.0); Monocytes % (A) 5 %; Neutrophils # (A) 18.8 k/uL (1.3-7.7); Neutrophils % (A) 90 %; Platelet Count 285 k/uL (150-450); RBC 3.23 m/uL (4.30-5.90); RDW 12.9 % (11.5-15.5); WBC 20.9 k/uL (3.8-10.6)
[2024-06-30 13:59] LABS: ALT 52 U/L (4-49); AST 29 U/L (17-59); African American GFR (CKD) 9 (>60 ml/min/1.73 sqM); Albumin 3.3 g/dL (3.5-5.0); Alkaline Phosphatase 125 U/L (38-126); Anion Gap 16 mmol/L; Blood Urea Nitrogen 92 mg/dL (9-20); Calcium 7.8 mg/dL (8.4-10.2); Carbon Dioxide 24 mmol/L (22-30); Chloride 90 mmol/L (98-107); Glucose 308 mg/dL (74-99); Non-African American GFR(CKD) 8 (>60 ml/min/1.73 sqM); Potassium 4.7 mmol/L (3.5-5.1); Sodium 130 mmol/L (137-145); Total Bilirubin 0.6 mg/dL (0.2-1.3); Total Protein 6.4 g/dL (6.3-8.2)
--- NOTE | 2024-06-30 14:10 | XR ---
EXAMINATION TYPE: XR foot complete LT DATE OF EXAM: 06/30/2024 2:05 PM INDICATION: Patient age:Male; 68 years old; Reason for study: Pain; PHH. pain COMPARISON: Left foot radiograph 12/25/2023 TECHNIQUE: The left foot was examined in the AP, oblique, and lateral projections. FINDINGS: External forefoot metallic density limits evaluation. No evidence of any acute osseous pathology. No osseous erosions. Mild osteoarthritic changes throughout the joints of the foot with osteophyte forma tion and joint space narrowing. Atherosclerosis of the arterial vasculature. Calcaneal plantar spurri ng is present. IMPRESSION: 1. No evidence of acute fracture. No osseous erosions. 2. Mild osteoarthritic changes. [facility], , 06/30/2024 2:08 PM
[2024-06-30] MEDS ORDERED: VANCOMYCIN IV PER PHARMACY 1 EACH MISC MISCELLANE PRN (14:11)
[2024-06-30 14:12] LABS: C Reactive Protein 25.3 mg/dL (<1.0)
[2024-06-30] MEDS ORDERED: NALOXONE 0.4 MG/ML 1 ML VIAL IV PRN (14:23)
--- NOTE | 2024-06-30 14:23 | ED ---
Extremity Problem HPI - General Chief complaint: Extremity Problem,Nontraumatic Stated complaint: L foot pain Time Seen by Provider: 06/30/24 13:05 Source: patient, RN notes reviewed Mode of arrival: wheelchair Limitations: no limitations - History of Present Illness Initial comments: This is a 68-year-old male who presents to the emergency department for left foot pain. Patient has been dealing with diabetic ulcers for many years. States that he followed up with Dr. Walter yesterday and had some sort of procedure done and since then he has had increasing pain. States that he is unable to ambulate due to the pain. Foot is currently bandaged with some active drainage. Foot is very malodorous. Denies any fevers or chills. Not currently on antibiotics. A couple of his smaller toes appear black. Patient is unsure how long they have been black. - Related Data Home Medications Medication Instructions Recorded Confirmed Latanoprost/Pf [Latanoprost 0.005% 1 drop BOTH EYES DAILY 05/23/19 06/30/24 Eye Drop] Atorvastatin Calcium [Lipitor] 80 mg PO HS 04/15/22 06/30/24 Dorzolamide 2% [Trusopt 2%] 1 drop BOTH EYES DAILY 04/15/22 06/30/24 Insulin Aspart Prot/Insuln Asp 68 unit SQ BID-W/MEALS 04/15/22 06/30/24 [NovoLOG MIX 70-30 Flexpen] Folic Acid/Vit B Complex and C 0.8 mg PO DAILY 06/15/24 06/30/24 [Marguerite-Ingris Tablet] Sertraline [Zoloft] 50 mg PO DAILY 06/15/24 06/30/24 Previous Rx's Medication Instructions Recorded Acetaminophen Tab [Tylenol] 650 mg PO Q6HR PRN tab 06/17/24 Calcium Acetate [PhosLo] 667 mg PO TID-W/MEALS #90 tab 06/17/24 Losartan [Cozaar] 25 mg PO DAILY #30 tab 06/17/24 carvediloL [Coreg*] 12.5 mg PO BID-W/MEALS #60 tab 06/17/24 cloNIDine HCL [Catapres] 0.1 mg PO BID #60 tab 06/17/24 hydrALAZINE HCL [Apresoline] 100 mg PO TID #90 tab 06/17/24 Allergies Allergy/AdvReac Type Severity Reaction Status Date / Time clindamycin Allergy Anaphylaxis Verified 06/30/24 15:32 Review of Systems ROS Statement: Those systems with pertinent positive or pertinent negative responses have been documented in the HPI. ROS Other: All systems not noted in ROS Statement are negative. Past Medical History Past Medical History: COPD, Diabetes Mellitus, Eye Disorder, Hyperlipidemia, Hypertension, Myocardial Infarction (SD), Osteoarthritis (OA), Renal Disease, Sleep Apnea/CPAP/BIPAP Additional Past Medical History / Comment(s): IDDM,Diabetic retinopathy, GLAUCOMA. HEMODIALYSIS ,TH,SA-4 hours-access rt chest port. USES CPAP-machine currently not working calling [facility] Last Myocardial Infarction Date:: 2014 History of Any Multi-Drug Resistant Organisms: None Reported Past Surgical History: Joint Replacement, Tonsillectomy Additional Past Surgical History / Comment(s): rt total hip replacement, lasik eye surgery. FX JAW WIRED IN 1989,failed av fistula left upper arm Past Anesthesia/Blood Transfusion Reactions: Previous Problems w/ Anesthesia Additional Past Anesthesia/Blood Transfusion Reaction / Comment(s): pt states "cardiac arrest during hip replacement surgery with Dr Franklin at [facility] in 2014" Past Psychological History: No Psychological Hx Reported Smoking Status: Current every day smoker Past Alcohol Use History: None Reported Past Drug Use History: None Reported - Past Family History Sister(s) Family Medical History: Cancer Additional Family Medical History / Comment(s): ovarian CA, lung CA Brother(s) Family Medical History: Cancer Additional Family Medical History / Comment(s): prostate CA General Exam Limitations: no limitations General appearance: alert, in no apparent distress Head exam: Present: atraumatic, normocephalic, normal inspection Respiratory exam: Present: normal lung sounds bilaterally. Absent: respiratory distress, wheezes, rales, rhonchi Cardiovascular Exam: Present: regular rate, normal rhythm Extremities exam: Present: other (Left foot is bandaged with multiple ulcerations that have active drainage.) Neurological exam: Present: alert, oriented X3, CN II-XII intact Psychiatric exam: Present: normal affect, normal mood Course Vital Signs 06/30/24 06/30/24 12:00 16:15 Temperature 99.4 F 100.0 F H Pulse Rate 77 78 Respiratory 16 18 Rate Blood Pressure 135/66 152/63 O2 Sat by Pulse 100 100 Oximetry Medical Decision Making - Medical Decision Making This is a 68-year-old male who presents to the emergency department for left foot pain. Was pt. sent in by a medical professional or institution? @ -No Did you speak to anyone other than the patient for history? @ -No Did you review nursing and triage notes? @ -Yes, and I agree, it is accurate with regards to the patient's symptoms. Were old charts reviewed? @ -No Differential Diagnosis? @ -Differential Musculoskeletal Muscular strain, contusion, ligament sprain, fracture, arthritis, septic arthritis, bursitis, cellulitis, muscle spasm, nerve compression, DVT, arterial occlusion, herpes zoster, electrolyte abnormality, tumor.... This is not meant to be in all inclusive list EKG interpreted by me (3pts min.)? @ -Not obtained X-rays interpreted by me (1pt min.)? @ -X-ray of the left foot obtained. My interpretation identifies no evidence of osseous erosion. CT interpreted by me (1pt min.)? @ -Not obtained U/S interpreted by me (1pt. min.)? @ -Not obtained What testing was considered but not performed? (CT, X-rays, U/S, labs)? Why? @ -None What meds were considered but not given? Why? @ -None Did you discuss the management of the patient with other professionals? @ -Yes, Dr. Duval, who accepts the patient for admission. Did you reconcile home meds? @ -Yes Was smoking cessation discussed for >3mins.? @ -No Was critical care preformed (if so, how long)? @ -No Were there social determinants of health that impacted care today? How? (Homelessness, low income, unemployed, alcoholism, drug addiction, transportation, low edu. Level, literacy, decrease access to med. care, long term, rehab)? @ -No Was there de-escalation of care discussed even if they declined? (Discuss DNR or withdrawal of care, Hospice)? @ -No What co-morbidities impacted this encounter? (DM, HTN, Smoking, COPD, CAD, Cancer, CVA, Hep., AIDS, mental health diagnosis, sleep apnea, morbid obesity)? @ -DM, ESRD on dialysis Was patient admitted / discharged? @ -Admitted. Lab work demonstrates leukocytosis with a white blood cell count of 20.9. CRP elevated at 25.3. X-ray of the left foot reveals no evidence of osseous erosion. The foot had several draining ulcerations with necrotic toes and was very malodorous. Given the laboratory findings and patient's comorbidities, he was admitted to medicine for further management with IV antibiotics. Blood culture obtained and he was started on vancomycin and c efepime. Consult placed for vascular surgery and infectious disease. Nephrology consulted as well as patient is maintained on hemodialysis. Case discussed with ED attending Dr. Alvarez. Undiagnosed new problem with uncertain prognosis? @ -None Drug Therapy requiring intensive monitoring for toxicity (Heparin, Nitro, Insulin, Cardizem)? @ -None Were any procedures done? @ -None Diagnosis/symptom? @ -Left foot infection, diabetic ulcers Acute, or Chronic, or Acute on Chronic? @ -Acute Uncomplicated (without systemic symptoms) or Complicated (systemic symptoms)? @ -Uncomplicated Side effects of treatment? @ -None Exacerbation, Progression, or Severe Exacerbation] @ -Not applicable Poses a threat to life or bodily function? @ -Yes, can lead to septic shock and - Lab Data Result diagrams: 06/30/24 13:31 06/30/24 13:31 Lab Results 06/30/24 06/30/24 06/30/24 Range/Units 13:31 13:31 13:31 WBC 20.9 H (3.8-10.6) k/uL RBC 3.23 L (4.30-5.90) m/uL Hgb 10.1 L (13.0-17.5) gm/dL Hct 31.1 L (39.0-53.0) % MCV 96.1 (80.0-100.0) fL MCH 31.1 (25.0-35.0) pg MCHC 32.4 (31.0-37.0) g/dL RDW 12.9 (11.5-15.5) % Plt Count 285 (150-450) k/uL MPV 7.0 Neutrophils % 90 % Lymphocytes % 3 % Monocytes % 5 % Eosinophils % 1 % Basophils % 0 % Neutrophils # 18.8 H (1.3-7.7) k/uL Lymphocytes # 0.6 L (1.0-4.8) k/uL Monocytes # 1.1 H (0-1.0) k/uL Eosinophils # 0.2 (0-0.7) k/uL Basophils # 0.0 (0-0.2) k/uL Sodium 130 L (137-145) mmol/L Potassium 4.7 (3.5-5.1) mmol/L Chloride 90 L (98-107) mmol/L Carbon Dioxide 24 (22-30) mmol/L Anion Gap 16 mmol/L BUN 92 H (9-20) mg/dL Creatinine 6.59 H (0.66-1.25) mg/dL Est GFR (CKD-EPI)AfAm 9 (>60 ml/min/1.73 sqM) Est GFR (CKD-EPI)NonAf 8 (>60 ml/min/1.73 sqM) Glucose 308 H (74-99) mg/dL Plasma Lactic Acid Parminder 0.8 (0.7-2.0) mmol/L Calcium 7.8 L (8.4-10.2) mg/dL Total Bilirubin 0.6 (0.2-1.3) mg/dL AST 29 (17-59) U/L ALT 52 H (4-49) U/L Alkaline Phosphatase 125 (38-126) U/L C-Reactive Protein 25.3 H (<1.0) mg/dL Total Protein 6.4 (6.3-8.2) g/dL Albumin 3.3 L (3.5-5.0) g/dL - Radiology Data Radiology results: report reviewed, image reviewed Disposition Clinical Impression: Left foot infection, Diabetic foot ulcers Disposition: ADMITTED IP TO THIS HOSP
[2024-06-30] MEDS: CEFEPIME 2 GM in SODIUM CHLORIDE 0.9% 100 ML IVPB STA (14:48)
[2024-06-30] MEDS: LIDOCAINE 1% INJ 10MG/ML (20 ML MDV) SQ ONE (15:30)
--- NOTE | 2024-06-30 15:38 | P.GSCN ---
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 I have seen him last week we did the debridement and culture and patient was on antibiotic patient was supposed to follow-up with the wound clinic. Patient came to the ER today with discomfort and pain patient has been walking on his left foot. Medical history history of chronic renal failure on dialysis On examination patient was seen in the emergency room dressing was removed there is a callus on the plantar aspect of the foot with some mild redness noted on the dorsal aspect of the foot patient has a foot fourth toe dry gangrene for the past 2 weeks. White cell count is 20.9 patient has no fever or chills On examination neck is supple chest is clear few crackles the lung bases Abdomen soft nontender Vascular femorals are 1+ bilateral patient has a infected callus on the plantar aspect the left foot with mild redness Plan is debridement and deep culture patient was seen by infectious disease for IV antibiotic we will change the dressing tomorrow Past Medical History Past Medical History: COPD, Diabetes Mellitus, Eye Disorder, Hyperlipidemia, Hypertension, Myocardial Infarction (ID), Osteoarthritis (OA), Renal Disease, Sleep Apnea/CPAP/BIPAP Additional Past Medical History / Comment(s): IDDM,Diabetic retinopathy, GLAUCOMA. HEMODIALYSIS ,-4 hours-access rt chest port. USES CPAP-machine currently not working calling [facility] Last Myocardial Infarction Date:: 2014 History of Any Multi-Drug Resistant Organisms: None Reported Past Surgical History: Joint Replacement, Tonsillectomy Additional Past Surgical History / Comment(s): rt total hip replacement, lasik eye surgery. FX JAW WIRED IN 1989,failed av fistula left upper arm Past Anesthesia/Blood Transfusion Reactions: Previous Problems w/ Anesthesia Additional Past Anesthesia/Blood Transfusion Reaction / Comm: pt states "cardiac arrest during hip replacement surgery with Dr Franklin at [facility] in 2014" Past Psychological History: No Psychological Hx Reported Smoking Status: Current every day smoker Past Alcohol Use History: None Reported Past Drug Use History: None Reported - Past Family History Sister(s) Family Medical History: Cancer Additional Family Medical History / Comment(s): ovarian CA, lung CA Brother(s) Family Medical History: Cancer Additional Family Medical History / Comment(s): prostate CA Medications and Allergies Home Medications Medication Instructions Recorded Confirmed Type Latanoprost/Pf [Latanoprost 0.005% 1 drop BOTH EYES DAILY 05/23/19 06/30/24 History Eye Drop] Atorvastatin Calcium [Lipitor] 80 mg PO HS 04/15/22 06/30/24 History Dorzolamide 2% [Trusopt 2%] 1 drop BOTH EYES DAILY 04/15/22 06/30/24 History Insulin Aspart Prot/Insuln Asp 68 unit SQ BID-W/MEALS 04/15/22 06/30/24 History [NovoLOG MIX 70-30 Flexpen] Folic Acid/Vit B Complex and C 0.8 mg PO DAILY 06/15/24 06/30/24 History [Marguerite-Ingris Tablet] Sertraline [Zoloft] 50 mg PO DAILY 06/15/24 06/30/24 History Acetaminophen Tab [Tylenol] 650 mg PO Q6HR PRN tab 06/17/24 06/30/24 Rx Calcium Acetate [PhosLo] 667 mg PO TID-W/MEALS #90 tab 06/17/24 06/30/24 Rx Losartan [Cozaar] 25 mg PO DAILY #30 tab 06/17/24 06/30/24 Rx carvediloL [Coreg*] 12.5 mg PO BID-W/MEALS #60 tab 06/17/24 06/30/24 Rx cloNIDine HCL [Catapres] 0.1 mg PO BID #60 tab 06/17/24 06/30/24 Rx hydrALAZINE HCL [Apresoline] 100 mg PO TID #90 tab 06/17/24 06/30/24 Rx Allergies Allergy/AdvReac Type Severity Reaction Status Date / Time clindamycin Allergy Anaphylaxis Verified 06/30/24 15:32 Surgical - Exam Vital Signs Temp Pulse Resp BP Pulse Ox 99.4 F 77 16 135/66 100 06/30/24 12:00 06/30/24 12:00 06/30/24 12:00 06/30/24 12:00 06/30/24 12:00 Results - Labs 06/30/24 13:31 06/30/24 13:31 Abnormal Lab Results - Last 24 Hours (Table) 06/30/24 06/30/24 Range/Units 13:31 13:31 WBC 20.9 H (3.8-10.6) k/uL RBC 3.23 L (4.30-5.90) m/uL Hgb 10.1 L (13.0-17.5) gm/dL Hct 31.1 L (39.0-53.0) % Neutrophils # 18.8 H (1.3-7.7) k/uL Lymphocytes # 0.6 L (1.0-4.8) k/uL Monocytes # 1.1 H (0-1.0) k/uL Sodium 130 L (137-145) mmol/L Chloride 90 L (98-107) mmol/L BUN 92 H (9-20) mg/dL Creatinine 6.59 H (0.66-1.25) mg/dL Glucose 308 H (74-99) mg/dL Calcium 7.8 L (8.4-10.2) mg/dL ALT 52 H (4-49) U/L C-Reactive Protein 25.3 H (<1.0) mg/dL Albumin 3.3 L (3.5-5.0) g/dL Diabetes panel 06/30/24 Range/Units 13:31 Sodium 130 L (137-145) mmol/L Potassium 4.7 (3.5-5.1) mmol/L Chloride 90 L (98-107) mmol/L Carbon Dioxide 24 (22-30) mmol/L BUN 92 H (9-20) mg/dL Creatinine 6.59 H (0.66-1.25) mg/dL Glucose 308 H (74-99) mg/dL Calcium 7.8 L (8.4-10.2) mg/dL AST 29 (17-59) U/L ALT 52 H (4-49) U/L Alkaline Phosphatase 125 (38-126) U/L Total Protein 6.4 (6.3-8.2) g/dL Albumin 3.3 L (3.5-5.0) g/dL Calcium panel 06/30/24 Range/Units 13:31 Calcium 7.8 L (8.4-10.2) mg/dL Albumin 3.3 L (3.5-5.0) g/dL Pituitary panel 06/30/24 Range/Units 13:31 Sodium 130 L (137-145) mmol/L Potassium 4.7 (3.5-5.1) mmol/L Chloride 90 L (98-107) mmol/L Carbon Dioxide 24 (22-30) mmol/L BUN 92 H (9-20) mg/dL Creatinine 6.59 H (0.66-1.25) mg/dL Glucose 308 H (74-99) mg/dL Calcium 7.8 L (8.4-10.2) mg/dL Adrenal panel 06/30/24 Range/Units 13:31 Sodium 130 L (137-145) mmol/L Potassium 4.7 (3.5-5.1) mmol/L Chloride 90 L (98-107) mmol/L Carbon Dioxide 24 (22-30) mmol/L BUN 92 H (9-20) mg/dL Creatinine 6.59 H (0.66-1.25) mg/dL Glucose 308 H (74-99) mg/dL Calcium 7.8 L (8.4-10.2) mg/dL Total Bilirubin 0.6 (0.2-1.3) mg/dL AST 29 (17-59) U/L ALT 52 H (4-49) U/L Alkaline Phosphatase 125 (38-126) U/L Total Protein 6.4 (6.3-8.2) g/dL Albumin 3.3 L (3.5-5.0) g/dL
--- NOTE | 2024-06-30 15:41 | P.PCN ---
Description of Procedure: Preop diagnosis is callus plantar aspect the left foot measurement is 2 x 2 cm with mild redness on the dorsum aspect of the foot and involving the big toe Postop is a debridement of the left foot measurement is 2 x 2 x 1 cm postdebridement Left foot was prepped and draped in Prestel manner 1% lidocaine were infiltrated using sharp knife we extended the excision of the necrotic tissue of the left foot plantar aspect all the devitalized tissue was excised we sent for culture the wound was irrigated with saline using extra silver alginate as we packed the wound with silver and pressure dressing applied. Prognosis guarded we will watch very closely patient may need big toe amputation we will change the dressing tomorrow patient is under care of infectious disease for IV antibiotic
[2024-06-30] MEDS: VANCOMYCIN 1,500 MG in SODIUM CHLORIDE 0.9% 500 ML 500 ML IVPB STA (16:09)
[2024-06-30] MEDS: COLLAGENASE 250 UNIT/GM OINTMENT 30 GM TUBE TOPICAL SCH (16:27)
[2024-06-30] MEDS ORDERED: ACETAMINOPHEN TAB 325 MG TAB PO PRN (16:57)
[2024-06-30] MEDS: HYDROmorphone 0.5 MG/0.5 ML SYRINGE IVP PRN (18:28)
[2024-06-30] MEDS: carvediloL 12.5 MG TAB PO SCH (18:28)
[2024-06-30] MEDS: CALCIUM ACETATE 667 MG TAB PO SCH (18:28)
[2024-06-30] MEDS: INSULN ASP PRT/INSULIN ASPART 100 UNIT/ML 10 ML VIAL SQ SCH (18:30)
[2024-06-30 19:52] LABS: Glucose,Whole Blood 343 mg/dL (70-110)
[2024-06-30] MEDS: hydrALAZINE HCL 50 MG TAB PO SCH (21:07)
[2024-06-30] MEDS: cloNIDine HCL 0.1 MG TAB PO SCH (21:07)
[2024-06-30] MEDS: ATORVASTATIN 80 MG TAB PO SCH (21:07)
[2024-06-30] MEDS: metroNIDAZOLE 500 MG TAB PO SCH (21:07)
[2024-07-01] MEDS ORDERED: CEFEPIME 2 GM in SODIUM CHLORIDE 0.9% 100 ML IVPB SCH
--- NOTE | 2024-07-01 01:25 | P.HPIM ---
History of Present Illness H&P Date: 06/30/24 Chief Complaint: Left foot pain/ diabetic ulcer 68-year-old male who presents to the emergency department for left foot pain. Patient has been dealing with diabetic ulcers for many years. States that he followed up with Dr. Walter yesterday and had some sort of procedure done and since then he has had increasing pain. States that he is unable to ambulate due to the pain. Foot is currently bandaged with some active drainage. Foot is very malodorous. Denies any fevers or chills. Not currently on antibiotics. A couple of his smaller toes appear black. Patient is unsure how long they have been black. Blood work completed in ED reveals a WBC of 20.9, hemoglobin of 10.1 and platelet count of 285, sodium 130, potassium 4.7, BUN/creatinine of 92/6.59, blood glucose of 308 X-ray of the foot reveals osteoarthritic changes without any osseous erosions or evidence of osteomyelitis Review of Systems REVIEW OF SYSTEMS: CONSTITUTIONAL: No fever, no malaise, no fatigue. HEENT: No recent visual problems or hearing problems. Denied any sore throat. CARDIOVASCULAR: No chest pain, orthopnea, PND, no palpitations, no syncope. PULMONARY: No shortness of breath, no cough, no hemoptysis. GASTROINTESTINAL: No diarrhea, no nausea, no vomiting, no abdominal pain. NEUROLOGICAL: No headaches, no weakness, no numbness. HEMATOLOGICAL: Denies any bleeding or petechiae. GENITOURINARY: Denies any burning micturition, frequency, or urgency. MUSCULOSKELETAL/RHEUMATOLOGICAL: Denies any joint pain, swelling, or any muscle pain. ENDOCRINE: Denies any polyuria or polydipsia. The rest of the 14-point review of systems is negative. Past Medical History Past Medical History: COPD, Diabetes Mellitus, Eye Disorder, Hyperlipidemia, Hypertension, Myocardial Infarction (CA), Osteoarthritis (OA), Renal Disease, Sleep Apnea/CPAP/BIPAP Additional Past Medical History / Comment(s): IDDM,Diabetic retinopathy, GLAUCOMA. HEMODIALYSIS ,,SA-4 hours-access rt chest port. USES CPAP-machine currently not working calling [facility] Last Myocardial Infarction Date:: 2014 History of Any Multi-Drug Resistant Organisms: None Reported Past Surgical History: Joint Replacement, Tonsillectomy Additional Past Surgical History / Comment(s): rt total hip replacement, lasik eye surgery. FX JAW WIRED IN 1989,failed av fistula left upper arm Past Anesthesia/Blood Transfusion Reactions: Previous Problems w/ Anesthesia Additional Past Anesthesia/Blood Transfusion Reaction / Comment(s): pt states "cardiac arrest during hip replacement surgery with Dr Franklin at [facility] in 2014" Past Psychological History: No Psychological Hx Reported Smoking Status: Current every day smoker Past Alcohol Use History: None Reported Past Drug Use History: None Reported - Past Family History Sister(s) Family Medical History: Cancer Additional Family Medical History / Comment(s): ovarian CA, lung CA Brother(s) Family Medical History: Cancer Additional Family Medical History / Comment(s): prostate CA Medications and Allergies Home Medications Medication Instructions Recorded Confirmed Type Latanoprost/Pf [Latanoprost 0.005% 1 drop BOTH EYES DAILY 05/23/19 06/30/24 History Eye Drop] Atorvastatin Calcium [Lipitor] 80 mg PO HS 04/15/22 06/30/24 History Dorzolamide 2% [Trusopt 2%] 1 drop BOTH EYES DAILY 04/15/22 06/30/24 History Insulin Aspart Prot/Insuln Asp 68 unit SQ BID-W/MEALS 04/15/22 06/30/24 History [NovoLOG MIX 70-30 Flexpen] Folic Acid/Vit B Complex and C 0.8 mg PO DAILY 06/15/24 06/30/24 History [Marguerite-Ingris Tablet] Sertraline [Zoloft] 50 mg PO DAILY 06/15/24 06/30/24 History Acetaminophen Tab [Tylenol] 650 mg PO Q6HR PRN tab 06/17/24 06/30/24 Rx Calcium Acetate [PhosLo] 667 mg PO TID-W/MEALS #90 tab 06/17/24 06/30/24 Rx Losartan [Cozaar] 25 mg PO DAILY #30 tab 06/17/24 06/30/24 Rx carvediloL [Coreg*] 12.5 mg PO BID-W/MEALS #60 tab 06/17/24 06/30/24 Rx cloNIDine HCL [Catapres] 0.1 mg PO BID #60 tab 06/17/24 06/30/24 Rx hydrALAZINE HCL [Apresoline] 100 mg PO TID #90 tab 06/17/24 06/30/24 Rx Allergies Allergy/AdvReac Type Severity Reaction Status Date / Time clindamycin Allergy Anaphylaxis Verified 06/30/24 15:32 Physical Exam Vitals: Vital Signs Temp Pulse Resp BP Pulse Ox 06/30/24 16:15 100.0 F H 78 18 152/63 100 06/30/24 12:00 99.4 F 77 16 135/66 100 Intake and Output 06/30/24 06/30/24 06/30/24 06:59 14:59 22:59 Other: Weight 90.718 kg General appearance: alert, in no apparent distress Head exam: Present: atraumatic, normocephalic, normal inspection Respiratory exam: Present: normal lung sounds bilaterally. Absent: respiratory distress, wheezes, rales, rhonchi Cardiovascular Exam: Present: regular rate, normal rhythm Extremities exam: Present: other (Left foot is bandaged with multiple ulcerations that have active drainage.) Neurological exam: Present: alert, oriented X3, CN II-XII intact Psychiatric exam: Present: normal affect, normal mood Results CBC & Chem 7: 06/30/24 13:31 06/30/24 13:31 Labs: Abnormal Lab Results - Last 24 Hours (Table) 06/30/24 06/30/24 Range/Units 13:31 13:31 WBC 20.9 H (3.8-10.6) k/uL RBC 3.23 L (4.30-5.90) m/uL Hgb 10.1 L (13.0-17.5) gm/dL Hct 31.1 L (39.0-53.0) % Neutrophils # 18.8 H (1.3-7.7) k/uL Lymphocytes # 0.6 L (1.0-4.8) k/uL Monocytes # 1.1 H (0-1.0) k/uL Sodium 130 L (137-145) mmol/L Chloride 90 L (98-107) mmol/L BUN 92 H (9-20) mg/dL Creatinine 6.59 H (0.66-1.25) mg/dL Glucose 308 H (74-99) mg/dL Calcium 7.8 L (8.4-10.2) mg/dL ALT 52 H (4-49) U/L C-Reactive Protein 25.3 H (<1.0) mg/dL Albumin 3.3 L (3.5-5.0) g/dL Assessment and Plan Assessment: 1. Infected diabetic left foot ulcer -- Patient has been placed on IV cefepime and vancomycin; blood cultures and wound cultures are obtained -- Vascular surgery and ID consulted 2. Leukocytosis/sepsis; related to infected foot ulcer; wound cultures and blood cultures are obtained; monitor CBC, CRP and procalcitonin 3. Hyperglycemia without acidosis; diabetes mellitus with long-term insulin use; patient takes insulin 70/30 68 units twice daily; monitor Accu-Cheks before every meal and at bedtime with insulin sliding scale 4. Hypertension; currently on Coreg 12.5 mg twice daily, hydralazine 100 mg 3 times daily, clonidine 0.1 mg twice daily and losartan 25 mg daily 6. Hyperlipidemia; Lipitor 80 mg p.o. nightly 6. COPD, not in exacerbation; continue with home inhaler therapy 7. Depression; Zoloft 50 mg daily 8. End-stage renal disease/HD; patient maintains a schedule of Monday, and Monday; nephrology is consulted DVT prophylaxis; SCDs CODE STATUS full code
[2024-07-01 07:10] LABS: Glucose,Whole Blood 52 mg/dL (70-110)
[2024-07-01 07:38] LABS: Glucose,Whole Blood 95 mg/dL (70-110)
[2024-07-01] MEDS: DORZOLAMIDE HCL 2% DROPS 10 ML BTL BOTH EYES SCH (08:07)
[2024-07-01] MEDS: SERTRALINE 50 MG TAB PO SCH (08:08)
[2024-07-01] MEDS: LATANOPROST 0.005% OPHTH DROPS 2.5 ML BTL BOTH EYES SCH (08:08)
[2024-07-01] MEDS: LOSARTAN 50 MG TAB PO SCH (08:08)
[2024-07-01] MEDS: FOLIC ACID-VIT B COMPLEX-VIT C 1 CAP PO SCH (08:08)
--- NOTE | 2024-07-01 08:43 | P.CONS ---
History of Present Illness - Reason for Consult Consult date: 06/30/24 Left foot infection diabetic foot ulcer Requesting physician: Bianca Galan - Chief Complaint Left foot wound pain and swelling x days - History of Present Illness Patient is a 68-year-old male with a past medical history significant for COPD, Diabetes Mellitus, Eye Disorder, Hyperlipidemia, Hypertension, Myocardial Infarction ([place]), Osteoarthritis (OA), Renal Disease, Sleep Apnea/CPAP/BIPAP, presenting to the hospital for evaluation of left foot pain patient apparently has been dealing with a diabetic foot ulcer for many years and apparently has been evaluated in the outpatient setting by Dr. Walter with the patient did have some debridement of the wound and now has been complaining of increasing pain patient describes a pain to be sharp moderate intensity and he is unable to ambulate because of the pain patient noticed to have a malodorous drainage by the ER physician on presentation the hospital, patient did have a low-grade fever of 100 degrees following hide patient was nontachycardic hypotensive or hypoxic and no need for supplemental oxygen he did have a white count of 20,000 with a left shift creatinine 6.59 and liver isms are normal patient did have x- ray of the foot no evidence for acute fracture no bony erosion mild osteoarthritic changes patient did have bedside appointment of the wound and deep culture he was started on cefepime infectious disease was consulted for further management of antibiotic therapy patient mention he was on antibiotic in the recent past Review of Systems Positive point and negatives has been mentioned in the HPI, complete review of systems was performed and all other systems are negative Past Medical History Past Medical History: COPD, Diabetes Mellitus, Eye Disorder, Hyperlipidemia, Hypertension, Myocardial Infarction ([place]), Osteoarthritis (OA), Renal Disease, Sleep Apnea/CPAP/BIPAP Additional Past Medical History / Comment(s): IDDM,Diabetic retinopathy, GLAUCOMA. HEMODIALYSIS ,,SA-4 hours-access rt chest port. USES CPAP-machine currently not working calling [facility] Last Myocardial Infarction Date:: 2014 History of Any Multi-Drug Resistant Organisms: None Reported Past Surgical History: Joint Replacement, Tonsillectomy Additional Past Surgical History / Comment(s): rt total hip replacement, lasik eye surgery. FX JAW WIRED IN 1989,failed av fistula left upper arm Past Anesthesia/Blood Transfusion Reactions: Previous Problems w/ Anesthesia Additional Past Anesthesia/Blood Transfusion Reaction / Comm: pt states "cardiac arrest during hip replacement surgery with Dr Franklin at [facility] in 2015" Past Psychological History: No Psychological Hx Reported Smoking Status: Current every day smoker Past Alcohol Use History: None Reported Past Drug Use History: None Reported - Past Family History Sister(s) Family Medical History: Cancer Additional Family Medical History / Comment(s): ovarian CA, lung CA Brother(s) Family Medical History: Cancer Additional Family Medical History / Comment(s): prostate CA Medications and Allergies Home Medications Medication Instructions Recorded Confirmed Type Latanoprost/Pf [Latanoprost 0.005% 1 drop BOTH EYES DAILY 05/23/19 06/30/24 History Eye Drop] Atorvastatin Calcium [Lipitor] 80 mg PO HS 04/15/22 06/30/24 History Dorzolamide 2% [Trusopt 2%] 1 drop BOTH EYES DAILY 04/15/22 06/30/24 History Insulin Aspart Prot/Insuln Asp 68 unit SQ BID-W/MEALS 04/15/22 06/30/24 History [NovoLOG MIX 70-30 Flexpen] Folic Acid/Vit B Complex and C 0.8 mg PO DAILY 06/15/24 06/30/24 History [Marguerite-Ingris Tablet] Sertraline [Zoloft] 50 mg PO DAILY 06/15/24 06/30/24 History Acetaminophen Tab [Tylenol] 650 mg PO Q6HR PRN tab 06/17/24 06/30/24 Rx Calcium Acetate [PhosLo] 667 mg PO TID-W/MEALS #90 tab 06/17/24 06/30/24 Rx Losartan [Cozaar] 25 mg PO DAILY #30 tab 06/17/24 06/30/24 Rx carvediloL [Coreg*] 12.5 mg PO BID-W/MEALS #60 tab 06/17/24 06/30/24 Rx cloNIDine HCL [Catapres] 0.1 mg PO BID #60 tab 06/17/24 06/30/24 Rx hydrALAZINE HCL [Apresoline] 100 mg PO TID #90 tab 06/17/24 06/30/24 Rx Allergies Allergy/AdvReac Type Severity Reaction Status Date / Time clindamycin Allergy Anaphylaxis Verified 06/30/24 15:32 Physical Exam Vitals: Vital Signs Temp Pulse Resp BP Pulse Ox 06/30/24 12:00 99.4 F 77 16 135/66 100 Intake and Output 06/29/24 06/30/24 06/30/24 22:59 06:59 14:59 Other: Weight 90.718 kg GENERAL DESCRIPTION: Elderly male lying in bed, no distress. No tachypnea or accessory muscle of respiration use. HEENT: Shows Pallor , no scleral icterus. Oral mucous membrane is dry. NECK: Trachea central, no thyromegaly. LUNGS: Unlabored breathing. Clear to auscultation anteriorly. No wheeze or crackle. HEART: S1, S2, regular rate and rhythm. No loud murmur ABDOMEN: Soft, no tenderness , guarding or rigidity, no organomegaly EXTREMITIES: Left foot with an ulcer at the base of the big toe which has been debrided by the surgeon with significant amount of bloodstained drainage he also have a dry gangrene to the left third toe SKIN: No rash, no masses palpable. NEUROLOGICAL: The patient is awake, alert, oriented x3, mood and affect normal. Results CBC & Chem 7: 06/30/24 13:31 06/30/24 13:31 Labs: Abnormal Lab Results - Last 24 Hours (Table) 06/30/24 06/30/24 Range/Units 13:31 13:31 WBC 20.9 H (3.8-10.6) k/uL RBC 3.23 L (4.30-5.90) m/uL Hgb 10.1 L (13.0-17.5) gm/dL Hct 31.1 L (39.0-53.0) % Neutrophils # 18.8 H (1.3-7.7) k/uL Lymphocytes # 0.6 L (1.0-4.8) k/uL Monocytes # 1.1 H (0-1.0) k/uL Sodium 130 L (137-145) mmol/L Chloride 90 L (98-107) mmol/L BUN 92 H (9-20) mg/dL Creatinine 6.59 H (0.66-1.25) mg/dL Glucose 308 H (74-99) mg/dL Calcium 7.8 L (8.4-10.2) mg/dL ALT 52 H (4-49) U/L C-Reactive Protein 25.3 H (<1.0) mg/dL Albumin 3.3 L (3.5-5.0) g/dL Assessment and Plan (1) Diabetic foot ulcers Current Visit: Yes Status: Acute Code(s): E11.621 - TYPE 2 DIABETES MELLITUS WITH FOOT ULCER; L97.509 - NON-PRESSURE CHRONIC ULCER OTH PRT UNSP FOOT W UNSP SEVERITY SNOMED Code(s): 350506223 (2) Left foot infection Current Visit: Yes Status: Acute Code(s): L08.9 - LOCAL INFECTION OF THE SKIN AND SUBCUTANEOUS TISSUE, UNSP SNOMED Code(s): 770863260 (3) Leukocytosis Current Visit: Yes Status: Acute Code(s): D72.829 - ELEVATED WHITE BLOOD CELL COUNT, UNSPECIFIED SNOMED Code(s): 099291601 Plan: 1patient with extensive diabetic foot ulcer/infection especially at the base of the first metatarsal with associated swelling redness concerning for a deep gravity of infection and possible early osteomyelitis will need to cover for the polymicrobial elena associated with diabetic foot infection. 2patient with left third toe dry gangrene. 3-significant leukocytosis likely due to diabetic foot infection 4clindamycin allergy. 5patient is status post debridement of the wound and deep culture results will be followed. 5patient to continue cefepime will add vancomycin and Flagyl pending culture finalization. We will follow on clinical condition and cultures to further adjust medication if needed Thank you for this consultation we will follow the patient along with you Dictation was produced using [employer]raction dictation software. please excuse any grammatical, word or spelling errors. Time with Patient: Greater than 30
[2024-07-01 08:46] LABS: HCT 28.4 % (39.6-50.0); HGB 9.2 g/dL (13.0-17.0); MCH 31.3 pg (27.0-32.0); MCHC 32.4 g/dL (32.0-37.0); MCV 96.6 FL (80.0-97.0); Mean Platelet Volume 9.6 FL (9.5-12.2); NRBC Per 100 WBC 0 X 10*3/uL (0.00-0.01); Platelet Count 280 X 10*3/uL (140-440); RBC 2.94 X 10*6/uL (4.40-5.60); RDW 12.8 % (11.5-14.5); WBC 19.63 X 10*3/uL (4.50-10.00)
[2024-07-01] MEDS ORDERED: LOSARTAN 25 MG TAB PO SCH (09:00)
[2024-07-01 09:38] LABS: Glucose,Whole Blood 149 mg/dL (70-110)
[2024-07-01 10:19] LABS: Basophils # (A) 0.06 X 10*3/uL (0.00-0.10); Basophils % (A) 0.3 %; Eosinophils # (A) 0.28 X 10*3/uL (0.04-0.35); Eosinophils % (A) 1.4 %; Lymphocytes # (A) 0.62 X 10*3/uL (0.90-5.00); Lymphocytes % (A) 3.2 %; Monocytes # (A) 1.83 X 10*3/uL (0.20-1.00); Monocytes % (A) 9.3 %; Neutrophils # (A) 16.72 X 10*3/uL (1.80-7.70); Neutrophils % (A) 85.2 %
[2024-07-01] MEDS: ONDANSETRON 4 MG/2 ML VIAL IVP PRN (10:33)
[2024-07-01 11:43] LABS: BUN/Creat Ratio 13.53 Ratio (12.00-20.00); Calcium 7.9 mg/dL (8.7-10.3); Carbon Dioxide 22.2 mmol/L (21.6-31.8); Chloride 97 mmol/L (96-109); Glucose 52 mg/dL (70-110); Potassium 4.7 mmol/L (3.5-5.5); Sodium 137 mmol/L (135-145)
[2024-07-01] MEDS: VANCOMYCIN 1,500 MG in SODIUM CHLORIDE 0.9% 500 ML 500 ML IVPB ONE (11:58)
--- NOTE | 2024-07-01 12:03 | P.PN ---
Subjective 68-year-old male who presents to the emergency department for left foot pain. Patient has been dealing with diabetic ulcers for many years. States that he followed up with Dr. Walter yesterday and had some sort of procedure done and since then he has had increasing pain. States that he is unable to ambulate due to the pain. Foot is currently bandaged with some active drainage. Foot is very malodorous. Denies any fevers or chills. Not currently on antibiotics. A couple of his smaller toes appear black. Patient is unsure how long they have been black. Blood work completed in ED reveals a WBC of 20.9, hemoglobin of 10.1 and platelet count of 285, sodium 130, potassium 4.7, BUN/creatinine of 92/6.59, blood glucose of 308 X-ray of the foot reveals osteoarthritic changes without any osseous erosions or evidence of osteomyelitis 2/3 Patient is a pleasant 68 years old male who presents with left foot infection s/p debridement of the callus at the plantar surface of the left foot with cellulitis extending into the big toe. Wound cultures pending, currently covered with cefepime, IV vancomycin and p.o. Flagyl. Pain at the foot is controlled but patient has been complaining from stomach upset, he denies abdominal pain or tenderness, he feels nausea and wants something to help him, currently on Zofran also we will add in TSH Protonix. Patient denies chest pain or dyspnea. No urinary complaints. No other new complaints Review of systems CONSTITUTIONAL: No fever, no malaise, no fatigue. HEENT: No recent visual problems or hearing problems. Denied any sore throat. CARDIOVASCULAR: No orthopnea, PND, no palpitations, no syncope. PULMONARY: No shortness of breath, no cough, no hemoptysis. GASTROINTESTINAL: No diarrhea, no nausea, no vomiting, no abdominal pain. Normoactive bowel sounds. NEUROLOGICAL: No headaches, no weakness, no numbness. Active Medications Generic Name Dose Route Start Last Admin Trade Name Freq PRN Reason Stop Dose Admin Acetaminophen 650 mg 06/30/24 14:23 Acetaminophen Tab 325 Mg Tab PO Q6HR PRN Mild Pain or Fever > 100.5 Atorvastatin Calcium 80 mg 06/30/24 21:00 06/30/24 21:07 Atorvastatin 80 Mg Tab PO 80 mg HS DESHAWN Administration Calcium Acetate 667 mg 06/30/24 17:30 07/01/24 08:07 Calcium Acetate 667 Mg Tab PO 667 mg TID-W/MEALS [facility] Administration Carvedilol 12.5 mg 06/30/24 17:30 07/01/24 08:07 Carvedilol 12.5 Mg Tab PO 12.5 mg BID-W/MEALS DESHAWN Administration Clonidine 0.1 mg 06/30/24 21:00 07/01/24 08:08 Clonidine Hcl 0.1 Mg Tab PO 0.1 mg BID [facility] Administration Collagenase 1 applic 06/30/24 15:15 07/01/24 09:31 Collagenase 250 Unit/Gm Ointment 30 Gm Tube TOPICAL Not Given DAILY [facility] Protocol Dorzolamide HCl 1 drops 07/01/24 09:00 07/01/24 08:07 Dorzolamide Hcl 2% Drops 10 Ml Btl BOTH EYES 1 drops DAILY [facility] Administration Hydralazine HCl 100 mg 06/30/24 22:00 07/01/24 08:08 Hydralazine Hcl 50 Mg Tab PO 100 mg TID [facility] Administration Hydromorphone HCl 1 mg 06/30/24 14:23 Hydromorphone 1 Mg/Ml 1 Ml Syringe IVP Q3HR PRN Severe Pain (Scale 7 to 10) Hydromorphone HCl 0.5 mg 06/30/24 14:23 07/01/24 08:08 Hydromorphone 0.5 Mg/0.5 Ml Syringe IVP 0.5 mg Q3HR PRN Administration Moderate Pain (Scale 4 to 6) Cefepime HCl 1 gm/ Sodium 50 mls @ 100 mls/hr 07/01/24 21:00 Chloride IVPB Q24H DESHAWN Vancomycin HCl 1,500 mg/ 500 mls @ 167 mls/hr 07/01/24 12:00 07/01/24 11:58 Sodium Chloride IVPB 07/01/24 14:59 167 mls/hr ONCE ONE Administration Insulin Aspart 68 unit 06/30/24 17:30 07/01/24 09:39 Insuln Asp Prt/Insulin Aspart 100 Unit/Ml 10 Ml Vial SQ 55 unit BID-W/MEALS [facility] Administration Latanoprost 1 drops 07/01/24 09:00 07/01/24 08:08 Latanoprost 0.005% Ophth Drops 2.5 Ml Btl BOTH EYES 1 drops DAILY DESHAWN Administration Losartan Potassium 50 mg 07/01/24 09:00 07/01/24 08:08 Losartan 50 Mg Tab PO 50 mg DAILY DESHAWN Administration Metronidazole 500 mg 06/30/24 22:00 07/01/24 08:08 Metronidazole 500 Mg Tab PO 500 mg TID DESHAWN Administration Protocol Miscellaneous Information 1 each 06/30/24 14:11 Vancomycin Iv Per Pharmacy 1 Each [facility] MISCELLANE DIRECTED PRN Per Protocol Protocol Multivit/Ca Carb/B Cmplx/FA/Prenat 1 each 07/01/24 09:00 07/01/24 08:08 Folic Acid-Vit B Complex-Vit C 1 Cap PO 1 each DAILY DESHAWN Administration Naloxone HCl 0.2 mg 06/30/24 14:23 Naloxone 0.4 Mg/Ml 1 Ml Vial IV Q2M PRN Opioid Reversal Ondansetron HCl 4 mg 06/30/24 14:23 07/01/24 10:33 Ondansetron 4 Mg/2 Ml Vial IVP 4 mg Q8HR PRN Administration Nausea And Vomiting Pantoprazole Sodium 40 mg 07/01/24 12:00 Pantoprazole 40 Mg/10 Ml Vial IVP BID DESHAWN Sertraline HCl 50 mg 07/01/24 09:00 07/01/24 08:08 Sertraline 50 Mg Tab PO 50 mg DAILY DESHAWN Administration Objective - Vital Signs Vital signs: Vital Signs Temp 98.8 F 07/01/24 07:07 Pulse 79 07/01/24 07:07 Resp 17 07/01/24 07:07 BP 178/80 07/01/24 07:07 Pulse Ox 99 07/01/24 07:07 FiO2 Intake & Output 06/30/24 07/01/24 07/01/24 18:59 06:59 18:59 Intake Total 540 Balance 540 Weight 90.718 kg 75 kg Intake: Oral 540 Other: Voiding Method Urinal Urinal # Voids 3 - Exam GENERAL: The patient is alert and oriented x3, not in any acute distress. Well developed, well nourished. HEENT: Pupils are round and equally reacting to light. EOMI. No scleral icterus. No conjunctival pallor. Normocephalic, atraumatic. No pharyngeal erythema. No thyromegaly. CARDIOVASCULAR: S1 and S2 present. No murmurs, rubs, or gallops. PULMONARY: Chest is clear to auscultation, no wheezing , no crackles. ABDOMEN: Soft, nontender, nondistended, normoactive bowel sounds. No palpable organomegaly. MUSCULOSKELETAL: No joint swelling or deformity. -EXTREMITIES: No cyanosis, clubbing, or pedal edema. Left forefoot wound with dressing in place, NEUROLOGICAL: Gross neurological examination did not reveal any focal deficits. SKIN: No rashes. no petechiae. - Labs CBC & Chem 7: 07/01/24 03:47 07/01/24 03:47 Labs: Abnormal Lab Results - Last 24 Hours (Table) 06/30/24 06/30/24 06/30/24 Range/Units 13:31 13:31 19:50 WBC 20.9 H (3.8-10.6) k/uL RBC 3.23 L (4.30-5.90) m/uL Hgb 10.1 L (13.0-17.5) gm/dL Hct 31.1 L (39.0-53.0) % Immature Gran # (0.00-0.04) X 10*3/uL Neutrophils # 18.8 H (1.3-7.7) k/uL Lymphocytes # 0.6 L (1.0-4.8) k/uL Monocytes # 1.1 H (0-1.0) k/uL Sodium 130 L (137-145) mmol/L Chloride 90 L (98-107) mmol/L Anion Gap (4.00-12.00) mmol/L BUN 92 H (9-20) mg/dL Creatinine 6.59 H (0.66-1.25) mg/dL Est GFR (CKD-EPI) (>=60) Glucose 308 H (74-99) mg/dL POC Glucose (mg/dL) 343 H (70-110) mg/dL Calcium 7.8 L (8.4-10.2) mg/dL ALT 52 H (4-49) U/L C-Reactive Protein 25.3 H (<1.0) mg/dL Albumin 3.3 L (3.5-5.0) g/dL Procalcitonin (0.02-0.50) ng/mL 07/01/24 07/01/24 07/01/24 Range/Units 03:47 03:47 03:47 WBC 19.63 H (3.8-10.6) k/uL RBC 2.94 L (4.30-5.90) m/uL Hgb 9.2 L (13.0-17.5) gm/dL Hct 28.4 L (39.0-53.0) % Immature Gran # 0.12 H (0.00-0.04) X 10*3/uL Neutrophils # 16.72 H (1.3-7.7) k/uL Lymphocytes # 0.62 L (1.0-4.8) k/uL Monocytes # 1.83 H (0-1.0) k/uL Sodium (137-145) mmol/L Chloride (98-107) mmol/L Anion Gap 17.80 H (4.00-12.00) mmol/L BUN 92.0 H (9-20) mg/dL Creatinine 6.8 H (0.66-1.25) mg/dL Est GFR (CKD-EPI) 8 L (>=60) Glucose 52 L (74-99) mg/dL POC Glucose (mg/dL) (70-110) mg/dL Calcium 7.9 L (8.4-10.2) mg/dL ALT (4-49) U/L C-Reactive Protein 24.70 H (<1.0) mg/dL Albumin (3.5-5.0) g/dL Procalcitonin 0.86 H (0.02-0.50) ng/mL 07/01/24 07/01/24 Range/Units 07:06 09:33 WBC (3.8-10.6) k/uL RBC (4.30-5.90) m/uL Hgb (13.0-17.5) gm/dL Hct (39.0-53.0) % Immature Gran # (0.00-0.04) X 10*3/uL Neutrophils # (1.3-7.7) k/uL Lymphocytes # (1.0-4.8) k/uL Monocytes # (0-1.0) k/uL Sodium (137-145) mmol/L Chloride (98-107) mmol/L Anion Gap (4.00-12.00) mmol/L BUN (9-20) mg/dL Creatinine (0.66-1.25) mg/dL Est GFR (CKD-EPI) (>=60) Glucose (74-99) mg/dL POC Glucose (mg/dL) 52 L 149 H (70-110) mg/dL Calcium (8.4-10.2) mg/dL ALT (4-49) U/L C-Reactive Protein (<1.0) mg/dL Albumin (3.5-5.0) g/dL Procalcitonin (0.02-0.50) ng/mL Assessment and Plan Assessment: 1. Infected diabetic left foot ulcer -- Patient has been placed on IV cefepime and vancomycin and p.o. Flagyl; blood cultures and wound cultures are obtained -- Vascular surgery and ID consulted -- Follow-up wound culture 2. Leukocytosis/sepsis; related to infected foot ulcer; wound cultures and blood cultures are obtained; monitor CBC, CRP and procalcitonin 3. Hyperglycemia without acidosis; diabetes mellitus with long-term insulin use; patient takes insulin 70/30 68 units twice daily; monitor Accu-Cheks before every meal and at bedtime with insulin sliding scale 4. Hypertension; currently on Coreg 12.5 mg twice daily, hydralazine 100 mg 3 times daily, clonidine 0.1 mg twice daily and losartan 25 mg daily 6. Hyperlipidemia; Lipitor 80 mg p.o. nightly 6. COPD, not in exacerbation; continue with home inhaler therapy 7. Depression; Zoloft 50 mg daily 8. End-stage renal disease/HD; patient maintains a schedule of Monday, and Monday; nephrology is consulted DVT prophylaxis; SCDs CODE STATUS full code
[2024-07-01 12:22] LABS: Glucose,Whole Blood 124 mg/dL (70-110)
[2024-07-01] MEDS: PANTOPRAZOLE 40 MG/10 ML VIAL IVP SCH (12:28)
[2024-07-01] MEDS: ONDANSETRON 4 MG/2 ML VIAL IVP STA (12:28)
[2024-07-01] MEDS: FUROSEMIDE 10 MG/ML 10 ML VIAL IV SCH (12:37)
--- NOTE | 2024-07-01 12:45 | P.NPCON ---
History of Present Illness - Reason for Consult end stage renal disease - History of Present Illness Patient is a 68-year-old male with end-stage renal disease on hemodialysis on Monday schedule. Patient missed his dialysis treatment on Monday. He is admitted to the hospital with complaints of pain in his left foot. Patient has a chronic wound in his left foot and is being followed by vascular surgery. Patient denies any fever or chills. He states that he has had increased pain and drainage from his foot and he was not able to walk. Patient has been evaluated by vascular surgery and is status post debridement of the left foot Past Medical History Past Medical History: COPD, Diabetes Mellitus, Eye Disorder, Hyperlipidemia, Hypertension, Myocardial Infarction ([place]), Osteoarthritis (OA), Renal Disease, Sleep Apnea/CPAP/BIPAP Additional Past Medical History / Comment(s): IDDM,Diabetic retinopathy, GLAUCOMA. HEMODIALYSIS ,-4 hours-access rt chest port. USES CPAP-machine currently not working calling [facility] Last Myocardial Infarction Date:: 2014 History of Any Multi-Drug Resistant Organisms: None Reported Past Surgical History: Joint Replacement, Tonsillectomy Additional Past Surgical History / Comment(s): rt total hip replacement, lasik eye surgery. FX JAW WIRED IN 1989,failed av fistula left upper arm Past Anesthesia/Blood Transfusion Reactions: Previous Problems w/ Anesthesia Additional Past Anesthesia/Blood Transfusion Reaction / Comment(s): pt states "cardiac arrest during hip replacement surgery with Dr Franklin at [facility] in 2014" Past Psychological History: No Psychological Hx Reported Smoking Status: Current every day smoker Past Alcohol Use History: None Reported Past Drug Use History: None Reported - Past Family History Sister(s) Family Medical History: Cancer Additional Family Medical History / Comment(s): ovarian CA, lung CA Brother(s) Family Medical History: Cancer Additional Family Medical History / Comment(s): prostate CA Medications and Allergies Home Medications Medication Instructions Recorded Confirmed Type Latanoprost/Pf [Latanoprost 0.005% 1 drop BOTH EYES DAILY 05/23/19 06/30/24 History Eye Drop] Atorvastatin Calcium [Lipitor] 80 mg PO HS 04/15/22 06/30/24 History Dorzolamide 2% [Trusopt 2%] 1 drop BOTH EYES DAILY 04/15/22 06/30/24 History Insulin Aspart Prot/Insuln Asp 68 unit SQ BID-W/MEALS 04/15/22 06/30/24 History [NovoLOG MIX 70-30 Flexpen] Folic Acid/Vit B Complex and C 0.8 mg PO DAILY 06/15/24 06/30/24 History [Marguerite-Ingris Tablet] Sertraline [Zoloft] 50 mg PO DAILY 06/15/24 06/30/24 History Acetaminophen Tab [Tylenol] 650 mg PO Q6HR PRN tab 06/17/24 06/30/24 Rx Calcium Acetate [PhosLo] 667 mg PO TID-W/MEALS #90 tab 06/17/24 06/30/24 Rx Losartan [Cozaar] 25 mg PO DAILY #30 tab 06/17/24 06/30/24 Rx carvediloL [Coreg*] 12.5 mg PO BID-W/MEALS #60 tab 06/17/24 06/30/24 Rx cloNIDine HCL [Catapres] 0.1 mg PO BID #60 tab 06/17/24 06/30/24 Rx hydrALAZINE HCL [Apresoline] 100 mg PO TID #90 tab 06/17/24 06/30/24 Rx Tiotropium 2.5 Mcg/Puff [Spiriva 2 puff INHALATION DAILY 07/01/24 07/01/24 History Respimat 2.5 Mcg] Allergies Allergy/AdvReac Type Severity Reaction Status Date / Time clindamycin Allergy Anaphylaxis Verified 06/30/24 15:32 Physical Exam Vitals: Vital Signs Temp Pulse Pulse Resp BP BP Pulse Ox 07/01/24 12:34 97.6 F 70 18 142/67 99 07/01/24 07:07 98.8 F 79 17 178/80 99 07/01/24 01:42 98.6 F 71 14 151/65 99 06/30/24 20:00 98.8 F 65 12 126/58 96 06/30/24 18:12 98 F 80 18 194/74 98 06/30/24 17:02 98.6 F 70 18 156/64 97 06/30/24 16:15 100.0 F H 78 18 152/63 100 Intake and Output 06/30/24 07/01/24 07/01/24 22:59 06:59 14:59 Intake Total 540 Balance 540 Intake: Oral 540 Other: Voiding Method Urinal Urinal # Voids 3 Weight 90.718 kg 75 kg Patient is awake, comfortable, alert oriented x 3 No acute distress Examination of the heart S1 and S2 Examination of the lungs bilateral breath sounds are heard Abdomen is soft nontender Examination of lower extremities shows no significant edema left foot is edematous with wound noted on the plantar aspect of the foot with discoloration of the lateral 3 toes. Results - Lab Results Most recent lab results Calcium 7.9 mg/dL (8.7-10.3) L 07/01/24 03:47 07/01/24 03:47 07/01/24 03:47 Assessment and Plan Assessment: 1. End-stage renal disease on hemodialysis on Monday schedule 2. Left foot infection with chronic wound status post debridement and maintained on antibiotics 3. CKD mineral bone disorder 4. Volume overload Plan: Hemodialysis in a.m. Add IV Lasix as patient has fair urine output Continue with PhosLo with meals.
--- NOTE | 2024-07-01 13:22 | P.PN ---
Progress Note - Text 68-year-old gentleman history of chronic renal failure, diabetes mellitus hypertension sleep apnea patient has chronic ulcer on the plantar foot left foot under care of rd manager in the past patient developed infected callus we did the debridement with deep culture IV antibiotic under care of infectious disease there is some mild redness noted on the dorsal aspect of the big toe and also fourth toe has a dry gangrene today will change the dressing with pack the wound was silver rope dressing should be changed daily basis prognosis guarded discussed with the patient in detail
[2024-07-01 17:14] LABS: Glucose,Whole Blood 134 mg/dL (70-110)
[2024-07-01 20:17] LABS: Glucose,Whole Blood 224 mg/dL (70-110)
[2024-07-01] MEDS: CEFEPIME 1 GM in SODIUM CHLORIDE 0.9% 50 ML IVPB SCH (21:21)
[2024-07-02 00:51] LABS: Glucose,Whole Blood 195 mg/dL (70-110)
[2024-07-02] MEDS: HYDROmorphone 1 MG/ML 1 ML SYRINGE IVP PRN (00:55)
[2024-07-02 02:13] LABS: Glucose,Whole Blood 155 mg/dL (70-110)
[2024-07-02 07:22] LABS: Glucose,Whole Blood 137 mg/dL (70-110)
--- NOTE | 2024-07-02 08:15 | P.PN ---
Subjective Progress Note Date: 07/01/24 Principal diagnosis: Reason for follow-up is left diabetic foot infection concerning for possible osteo- Patient is a 68-year-old male with a past medical history significant for COPD, Diabetes Mellitus, Eye Disorder, Hyperlipidemia, Hypertension, Myocardial Infarction ([place]), Osteoarthritis (OA), Renal Disease, Sleep Apnea/CPAP/BIPAP, presenting to the hospital for evaluation of left foot pain. Patient did have Diabetic foot ulcer status post surgical debridement. On today's evaluation that is 07/01/2024, patient has been afebrile, patient is breathing comfortably and is currently on room air, patient denies having any significant cough no chest pain, patient denies nausea vomiting or diarrhea and no abdominal pain still complaining of pain to the left foot some relief with the pain medication. Cultures currently pending Objective - Vital Signs Vital signs: Vital Signs Temp 98.8 F 07/01/24 07:07 Pulse 79 07/01/24 07:07 Resp 17 07/01/24 07:07 BP 178/80 07/01/24 07:07 Pulse Ox 99 07/01/24 07:07 FiO2 Intake & Output 06/30/24 07/01/24 07/01/24 18:59 06:59 18:59 Intake Total 540 Balance 540 Weight 90.718 kg 75 kg Intake: Oral 540 Other: Voiding Method Urinal Urinal # Voids 3 - Exam GENERAL DESCRIPTION: An elderly male lying in bed in no distress RESPIRATORY SYSTEM: Unlabored breathing , decreased breath sounds at bases HEART: S1 S2 regular rate and rhythm , ABDOMEN: Soft , no tenderness EXTREMITIES: Left foot wound is currently dressed - Labs CBC & Chem 7: 07/01/24 03:47 07/01/24 03:47 Labs: Abnormal Lab Results - Last 24 Hours (Table) 06/30/24 06/30/24 06/30/24 Range/Units 13:31 13:31 19:50 WBC 20.9 H (3.8-10.6) k/uL RBC 3.23 L (4.30-5.90) m/uL Hgb 10.1 L (13.0-17.5) gm/dL Hct 31.1 L (39.0-53.0) % Immature Gran # (0.00-0.04) X 10*3/uL Neutrophils # 18.8 H (1.3-7.7) k/uL Lymphocytes # 0.6 L (1.0-4.8) k/uL Monocytes # 1.1 H (0-1.0) k/uL Sodium 130 L (137-145) mmol/L Chloride 90 L (98-107) mmol/L Anion Gap (4.00-12.00) mmol/L BUN 92 H (9-20) mg/dL Creatinine 6.59 H (0.66-1.25) mg/dL Est GFR (CKD-EPI) (>=60) Glucose 308 H (74-99) mg/dL POC Glucose (mg/dL) 343 H (70-110) mg/dL Calcium 7.8 L (8.4-10.2) mg/dL ALT 52 H (4-49) U/L C-Reactive Protein 25.3 H (<1.0) mg/dL Albumin 3.3 L (3.5-5.0) g/dL Procalcitonin (0.02-0.50) ng/mL 07/01/24 07/01/24 07/01/24 Range/Units 03:47 03:47 03:47 WBC 19.63 H (3.8-10.6) k/uL RBC 2.94 L (4.30-5.90) m/uL Hgb 9.2 L (13.0-17.5) gm/dL Hct 28.4 L (39.0-53.0) % Immature Gran # 0.12 H (0.00-0.04) X 10*3/uL Neutrophils # 16.72 H (1.3-7.7) k/uL Lymphocytes # 0.62 L (1.0-4.8) k/uL Monocytes # 1.83 H (0-1.0) k/uL Sodium (137-145) mmol/L Chloride (98-107) mmol/L Anion Gap 17.80 H (4.00-12.00) mmol/L BUN 92.0 H (9-20) mg/dL Creatinine 6.8 H (0.66-1.25) mg/dL Est GFR (CKD-EPI) 8 L (>=60) Glucose 52 L (74-99) mg/dL POC Glucose (mg/dL) (70-110) mg/dL Calcium 7.9 L (8.4-10.2) mg/dL ALT (4-49) U/L C-Reactive Protein 24.70 H (<1.0) mg/dL Albumin (3.5-5.0) g/dL Procalcitonin 0.86 H (0.02-0.50) ng/mL 07/01/24 07/01/24 07/01/24 Range/Units 07:06 09:33 12:13 WBC (3.8-10.6) k/uL RBC (4.30-5.90) m/uL Hgb (13.0-17.5) gm/dL Hct (39.0-53.0) % Immature Gran # (0.00-0.04) X 10*3/uL Neutrophils # (1.3-7.7) k/uL Lymphocytes # (1.0-4.8) k/uL Monocytes # (0-1.0) k/uL Sodium (137-145) mmol/L Chloride (98-107) mmol/L Anion Gap (4.00-12.00) mmol/L BUN (9-20) mg/dL Creatinine (0.66-1.25) mg/dL Est GFR (CKD-EPI) (>=60) Glucose (74-99) mg/dL POC Glucose (mg/dL) 52 L 149 H 124 H (70-110) mg/dL Calcium (8.4-10.2) mg/dL ALT (4-49) U/L C-Reactive Protein (<1.0) mg/dL Albumin (3.5-5.0) g/dL Procalcitonin (0.02-0.50) ng/mL Assessment and Plan (1) Diabetic foot ulcers Current Visit: Yes Status: Acute Code(s): E11.621 - TYPE 2 DIABETES MELLITUS WITH FOOT ULCER; L97.509 - NON-PRESSURE CHRONIC ULCER OTH PRT UNSP FOOT W UNSP SEVERITY SNOMED Code(s): 387122328 (2) Left foot infection Current Visit: Yes Status: Acute Code(s): L08.9 - LOCAL INFECTION OF THE SKIN AND SUBCUTANEOUS TISSUE, UNSP SNOMED Code(s): 098548474 (3) Leukocytosis Current Visit: Yes Status: Acute Code(s): D72.829 - ELEVATED WHITE BLOOD CELL COUNT, UNSPECIFIED SNOMED Code(s): 531847987 Plan: 1patient with extensive diabetic foot ulcer/infection especially at the base of the first metatarsal with associated swelling redness concerning for a deep gravity of infection and possible early osteomyelitis will need to cover for the polymicrobial elena associated with diabetic foot infection. 2patient with left third toe dry gangrene. 3-significant leukocytosis likely due to diabetic foot infection 4clindamycin allergy. 5patient is status post debridement of the wound and deep culture results are currently pending 5patient is being treated with cefepime, vancomycin and Flagyl pending culture finalization. We will obtain inflammatory markers and check bone scan to make sure no evidence of any osteomyelitis that may need long-term antibiotic therapy Dictation was produced using [employer] [place] dictation software. please excuse any grammatical, word or spelling errors. Time with Patient: Less than 30
[2024-07-02 12:26] LABS: Glucose,Whole Blood 101 mg/dL (70-110)
[2024-07-02 14:10] LABS: Glucose,Whole Blood 49 mg/dL (70-110)
[2024-07-02 14:30] LABS: Glucose,Whole Blood 45 mg/dL (70-110)
[2024-07-02] MEDS: DEXTROSE 50% SYRINGE 50 ML IVP STA (14:32)
[2024-07-02] MEDS: metroNIDAZOLE-NS PMX 500 MG in SALINE 1 100ML.BAG IVPB SCH (14:37)
--- NOTE | 2024-07-02 14:48 | P.PN ---
Subjective Progress Note Date: 07/02/24 Principal diagnosis: Reason for follow-up is left diabetic foot infection concerning for possible osteo- Patient is a 68-year-old male with a past medical history significant for COPD, Diabetes Mellitus, Eye Disorder, Hyperlipidemia, Hypertension, Myocardial Infarction ([place]), Osteoarthritis (OA), Renal Disease, Sleep Apnea/CPAP/BIPAP, presenting to the hospital for evaluation of left foot pain. Patient did have Diabetic foot ulcer status post surgical debridement. On today's evaluation that is 07/02/2024, Patient is afebrile this morning patient denies having any chest pain shortness of breath or cough, the patient is currently on room air, patient denies any abdominal pain no diarrhea no nausea no vomiting pain to the left foot is currently controlled. No new lab has been obtained today culture with Staph aureus Objective - Vital Signs Vital signs: Vital Signs Temp 97.8 F 07/02/24 13:25 Pulse 82 07/02/24 14:31 Resp 18 07/02/24 13:25 BP 214/90 07/02/24 14:31 Pulse Ox 99 07/02/24 14:31 FiO2 Intake & Output 07/01/24 07/02/24 07/02/24 18:59 06:59 18:59 Intake Total 1760 3400 Output Total 608 661 6295 Balance 1360 -150 -3450 Weight 93.9 kg Intake: Intake, IV Titration 500 Amount Vancomycin 1,500 mg In 500 Sodium Chloride 0.9% 500 ml 500 ml @ 167 mls/hr IVPB ONCE ONE Rx#: [id number] Oral 1260 Hemodialysis 3400 Output: Urine 400 150 450 Hemodialysis 400 Hemodialysis Net Amount 3000 Other 3000 Other: Voiding Method Urinal Urinal Urinal # Voids 1 - Exam GENERAL DESCRIPTION: An elderly male lying in bed in no distress RESPIRATORY SYSTEM: Unlabored breathing , decreased breath sounds at bases HEART: S1 S2 regular rate and rhythm , ABDOMEN: Soft , no tenderness EXTREMITIES: Left foot wound is currently dressed - Labs CBC & Chem 7: 07/01/24 03:47 07/01/24 03:47 Labs: Abnormal Lab Results - Last 24 Hours (Table) 07/01/24 07/01/24 07/02/24 Range/Units 17:06 20:14 00:48 POC Glucose (mg/dL) 134 H 224 H 195 H (70-110) mg/dL 07/02/24 07/02/24 07/02/24 Range/Units 02:10 07:12 14:08 POC Glucose (mg/dL) 155 H 137 H 49 L* (70-110) mg/dL 07/02/24 Range/Units 14:25 POC Glucose (mg/dL) 45 L* (70-110) mg/dL Microbiology - Last 24 Hours (Table) 06/30/24 14:00 Blood Culture - Preliminary Blood 06/30/24 15:53 Gram Stain - Preliminary Foot - Left Tissue Culture - Preliminary Presumptive Staph aureus 06/30/24 15:53 Gram Stain - Preliminary Foot - Left Wound Culture - Preliminary Presumptive Staph aureus Assessment and Plan (1) Diabetic foot ulcers Current Visit: Yes Status: Acute Code(s): E11.621 - TYPE 2 DIABETES MELLITUS WITH FOOT ULCER; L97.509 - NON-PRESSURE CHRONIC ULCER OTH PRT UNSP FOOT W UNSP SEVERITY SNOMED Code(s): 618218096 (2) Left foot infection Current Visit: Yes Status: Acute Code(s): L08.9 - LOCAL INFECTION OF THE SKIN AND SUBCUTANEOUS TISSUE, UNSP SNOMED Code(s): 556566153 (3) Leukocytosis Current Visit: Yes Status: Acute Code(s): D72.829 - ELEVATED WHITE BLOOD CELL COUNT, UNSPECIFIED SNOMED Code(s): 073338396 Plan: 1patient with extensive diabetic foot ulcer/infection especially at the base of the first metatarsal with associated swelling redness concerning for a deep gravity of infection and possible early osteomyelitis will need to cover for the polymicrobial elena associated with diabetic foot infection. 2patient with left third toe dry gangrene. 3-significant leukocytosis likely due to diabetic foot infection 4clindamycin allergy. 5patient is status post debridement of the wound and deep culture results are currently growing Staph aureus sensitivities pending 5patient is being treated with cefepime, vancomycin and Flagyl pending culture finalization. Bone scan has been ordered to be done tomorrow as it was conflicting with his dialysis today Dictation was produced using [employer] dictation software. please excuse any grammatical, word or spelling errors. Time with Patient: Less than 30
[2024-07-02 14:56] LABS: Glucose,Whole Blood 156 mg/dL (70-110)
--- NOTE | 2024-07-02 16:04 | P.PN ---
Progress Note - Text 68-year-old gentleman history of chronic renal failure on dialysis through right IJ catheter. Patient also has a left upper arm fistula graft which is has a good thrill present. Patient came with infected callus right foot plantar aspect we excised the callus down to subcu fat and the metatarsal tarsal phalangeal joint we will treating local wound care using silver alginate as patient is under care of infectious disease with IV antibiotic patient still has some mild redness on the big toe. Dressing changes extra silver rope was ap plied dressing will be changed tomorrow
[2024-07-02 17:10] LABS: Glucose,Whole Blood 158 mg/dL (70-110)
--- NOTE | 2024-07-02 18:55 | P.PN ---
Subjective 68-year-old male who presents to the emergency department for left foot pain. Patient has been dealing with diabetic ulcers for many years. States that he followed up with Dr. Walter yesterday and had some sort of procedure done and since then he has had increasing pain. States that he is unable to ambulate due to the pain. Foot is currently bandaged with some active drainage. Foot is very malodorous. Denies any fevers or chills. Not currently on antibiotics. A couple of his smaller toes appear black. Patient is unsure how long they have been black. Blood work completed in ED reveals a WBC of 20.9, hemoglobin of 10.1 and platelet count of 285, sodium 130, potassium 4.7, BUN/creatinine of 92/6.59, blood glucose of 308 X-ray of the foot reveals osteoarthritic changes without any osseous erosions or evidence of osteomyelitis 2/3 Patient is a pleasant 68 years old male who presents with left foot infection s/p debridement of the callus at the plantar surface of the left foot with cellulitis extending into the big toe. Wound cultures pending, currently covered with cefepime, IV vancomycin and p.o. Flagyl. Pain at the foot is controlled but patient has been complaining from stomach upset, he denies abdominal pain or tenderness, he feels nausea and wants something to help him, currently on Zofran also we will add in TSH Protonix. Patient denies chest pain or dyspnea. No urinary complaints. No other new complaints 2/ Patient left foot pain is controlled, dressing in place, culture is growing presumptive staph, patient kept on IV vancomycin and cefepime and Flagyl as per ID team. Bone scan requested for tomorrow Also he was complaining from stomach upset, he denies stomach pain or abdominal pain, he denies chest pain or dyspnea. He states that his upset is because of the pills most likely referring to his Flagyl pills which is switched to IV Zosyn. Because of poor eating today due to stomach upset he became hypoglycemic, he received juice and D50 injection and his sugar improved. Patient is continued on hemodialysis as per nephrology team Review of systems CONSTITUTIONAL: No fever, no malaise, no fatigue. HEENT: No recent visual problems or hearing problems. Denied any sore throat. CARDIOVASCULAR: No orthopnea, PND, no palpitations, no syncope. PULMONARY: No shortness of breath, no cough, no hemoptysis. GASTROINTESTINAL: No diarrhea, no nausea, no vomiting, no abdominal pain. Normoactive bowel sounds. NEUROLOGICAL: No headaches, no weakness, no numbness. Active Medications Generic Name Dose Route Start Last Admin Trade Name Freq PRN Reason Stop Dose Admin Acetaminophen 650 mg 06/30/24 14:23 Acetaminophen Tab 325 Mg Tab PO Q6HR PRN Mild Pain or Fever > 100.5 Atorvastatin Calcium 80 mg 06/30/24 21:00 07/01/24 20:29 Atorvastatin 80 Mg Tab PO 80 mg HS DESHAWN Administration Calcium Acetate 667 mg 06/30/24 17:30 07/02/24 17:52 Calcium Acetate 667 Mg Tab PO 667 mg TID-W/MEALS DESHAWN Administration Carvedilol 12.5 mg 06/30/24 17:30 07/02/24 17:51 Carvedilol 12.5 Mg Tab PO 12.5 mg BID-W/MEALS DESHAWN Administration Clonidine 0.1 mg 06/30/24 21:00 07/02/24 13:25 Clonidine Hcl 0.1 Mg Tab PO 0.1 mg BID DESHAWN Administration Collagenase 1 applic 06/30/24 15:15 07/02/24 09:23 Collagenase 250 Unit/Gm Ointment 30 Gm Tube TOPICAL Not Given DAILY [facility] Protocol Dorzolamide HCl 1 drops 07/01/24 09:00 07/02/24 09:27 Dorzolamide Hcl 2% Drops 10 Ml Btl BOTH EYES 1 drops DAILY DESHAWN Administration Furosemide 80 mg 07/01/24 12:30 07/02/24 09:21 Furosemide 10 Mg/Ml 10 Ml Vial IV 80 mg Q12HR DESHAWN Administration Hydralazine HCl 100 mg 06/30/24 22:00 07/02/24 13:31 Hydralazine Hcl 50 Mg Tab PO Not Given TID DESHAWN Hydromorphone HCl 1 mg 06/30/24 14:23 07/02/24 13:45 Hydromorphone 1 Mg/Ml 1 Ml Syringe IVP 1 mg Q3HR PRN Administration Severe Pain (Scale 7 to 10) Hydromorphone HCl 0.5 mg 06/30/24 14:23 07/01/24 20:13 Hydromorphone 0.5 Mg/0.5 Ml Syringe IVP 0.5 mg Q3HR PRN Administration Moderate Pain (Scale 4 to 6) Cefepime HCl 1 gm/ Sodium 50 mls @ 100 mls/hr 07/01/24 21:00 07/01/24 21:21 Chloride IVPB 100 mls/hr Q24H DESHAWN Administration Vancomycin HCl 1,500 mg/ 500 mls @ 167 mls/hr 07/03/24 09:00 Sodium Chloride IVPB 07/03/24 11:59 ONCE ONE Metronidazole 500 mg/ IV 100 mls @ 100 mls/hr 07/02/24 16:00 07/02/24 14:37 Solution IVPB Not Given Q8HR DESHAWN Protocol Insulin Aspart 68 unit 06/30/24 17:30 07/02/24 17:51 Insuln Asp Prt/Insulin Aspart 100 Unit/Ml 10 Ml Vial SQ 30 unit BID-W/MEALS DESHAWN Administration Latanoprost 1 drops 07/01/24 09:00 07/02/24 09:28 Latanoprost 0.005% Ophth Drops 2.5 Ml Btl BOTH EYES 1 drops DAILY DESHAWN Administration Losartan Potassium 50 mg 07/01/24 09:00 07/02/24 13:30 Losartan 50 Mg Tab PO 50 mg DAILY DESHAWN Administration Miscellaneous Information 1 each 06/30/24 14:11 Vancomycin Iv Per Pharmacy 1 Each Misc MISCELLANE DIRECTED PRN Per Protocol Protocol Multivit/Ca Carb/B Cmplx/FA/Prenat 1 each 07/01/24 09:00 07/02/24 13:25 Folic Acid-Vit B Complex-Vit C 1 Cap PO 1 each DAILY DESHAWN Administration Naloxone HCl 0.2 mg 06/30/24 14:23 Naloxone 0.4 Mg/Ml 1 Ml Vial IV Q2M PRN Opioid Reversal Ondansetron HCl 4 mg 06/30/24 14:23 07/02/24 15:08 Ondansetron 4 Mg/2 Ml Vial IVP 4 mg Q8HR PRN Administration Nausea And Vomiting Pantoprazole Sodium 40 mg 07/01/24 12:00 07/02/24 09:19 Pantoprazole 40 Mg/10 Ml Vial IVP 40 mg BID DESHAWN Administration Sertraline HCl 50 mg 07/01/24 09:00 07/02/24 13:25 Sertraline 50 Mg Tab PO 50 mg DAILY DESHAWN Administration Objective - Vital Signs Vital signs: Vital Signs Temp 97.8 F 07/02/24 13:25 Pulse 100 07/02/24 08:00 Resp 18 07/02/24 13:25 BP 181/76 07/02/24 13:25 Pulse Ox 96 07/02/24 08:00 FiO2 Intake & Output 07/01/24 07/02/24 07/02/24 18:59 06:59 18:59 Intake Total 1760 3400 Output Total 453 588 2788 Balance 1360 -150 -3450 Weight 93.9 kg Intake: Intake, IV Titration 500 Amount Vancomycin 1,500 mg In 500 Sodium Chloride 0.9% 500 ml 500 ml @ 167 mls/hr IVPB ONCE ONE Rx#: [id number] Oral 1260 Hemodialysis 3400 Output: Urine 400 150 450 Hemodialysis 400 Hemodialysis Net Amount 3000 Other 3000 Other: Voiding Method Urinal Urinal Urinal # Voids 1 - Exam GENERAL: The patient is alert and oriented x3, not in any acute distress. Well developed, well nourished. HEENT: Pupils are round and equally reacting to light. EOMI. No scleral icterus. No conjunctival pallor. Normocephalic, atraumatic. No pharyngeal erythema. No thyromegaly. CARDIOVASCULAR: S1 and S2 present. No murmurs, rubs, or gallops. PULMONARY: Chest is clear to auscultation, no wheezing , no crackles. ABDOMEN: Soft, nontender, nondistended, normoactive bowel sounds. No palpable organomegaly. MUSCULOSKELETAL: No joint swelling or deformity. -EXTREMITIES: No cyanosis, clubbing, or pedal edema. Left forefoot wound with dressing in place, NEUROLOGICAL: Gross neurological examination did not reveal any focal deficits. SKIN: No rashes. no petechiae. - Labs CBC & Chem 7: 07/01/24 03:47 07/01/24 03:47 Labs: Abnormal Lab Results - Last 24 Hours (Table) 07/01/24 07/01/24 07/02/24 Range/Units 17:06 20:14 00:48 POC Glucose (mg/dL) 134 H 224 H 195 H (70-110) mg/dL 07/02/24 07/02/24 07/02/24 Range/Units 02:10 07:12 14:08 POC Glucose (mg/dL) 155 H 137 H 49 L* (70-110) mg/dL Microbiology - Last 24 Hours (Table) 06/30/24 14:00 Blood Culture - Preliminary Blood 06/30/24 15:53 Gram Stain - Preliminary Foot - Left Tissue Culture - Preliminary Presumptive Staph aureus 06/30/24 15:53 Gram Stain - Preliminary Foot - Left Wound Culture - Preliminary Presumptive Staph aureus Assessment and Plan Assessment: 1. Infected diabetic left foot ulcer -- Patient has been placed on IV cefepime and vancomycin and iv. Flagyl; blood cultures and wound cultures are obtained -- Vascular surgery and ID consulted -- Follow-up wound culture. Pending results growing staph --Bone scan requested 2. Leukocytosis/sepsis; related to infected foot ulcer; wound cultures and blood cultures are obtained; monitor CBC, CRP and procalcitonin 3. Hyperglycemia without acidosis; diabetes mellitus with long-term insulin use; patient takes insulin 70/30 68 units twice daily; monitor Accu-Cheks before every meal and at bedtime with insulin sliding scale -- Had episode of hypoglycemia on 07/02 because of stomach upset, currently improved 4. Hypertension; currently on Coreg 12.5 mg twice daily, hydralazine 100 mg 3 times daily, clonidine 0.1 mg twice daily and losartan 25 mg daily 6. Hyperlipidemia; Lipitor 80 mg p.o. nightly 6. COPD, not in exacerbation; continue with home inhaler therapy 7. Depression; Zoloft 50 mg daily 8. End-stage renal disease/HD; patient maintains a schedule of Monday, and Monday; nephrology is consulted. IV Lasix 80 mg twice daily. Nephrology team DVT prophylaxis; SCDs CODE STATUS full code
[2024-07-02 20:04] LABS: Glucose,Whole Blood 234 mg/dL (70-110)
--- NOTE | 2024-07-02 20:15 | P.PN ---
Subjective Patient is seen for follow-up for end-stage renal disease. Currently seen on hemodialysis. Tolerating treatment well. No complaints of shortness of breath. Patient has a left arm AV graft which needed clearance from vascular surgery before accessing. Objective - Vital Signs Vital signs: Vital Signs Temp 98.1 F 07/02/24 18:04 Pulse 64 07/02/24 18:04 Resp 18 07/02/24 18:04 BP 160/72 07/02/24 18:04 Pulse Ox 99 07/02/24 18:04 FiO2 Intake & Output 07/02/24 07/02/24 07/03/24 06:59 18:59 06:59 Intake Total 4260 Output Total 150 7150 Balance -150 -2890 Weight 93.9 kg Intake: Oral 860 Hemodialysis 3400 Output: Urine 150 750 Hemodialysis 400 Hemodialysis Net Amount 3000 Other 3000 Other: Voiding Method Urinal Urinal # Voids 1 - Exam Patient is awake, comfortable, no acute distress. Examination of the heart S1 and S2 Examination of the lungs bilateral breath sounds are heard Lower extremities shows no significant edema left foot is wrapped. 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 - Labs CBC & Chem 7: 07/01/24 03:47 07/01/24 03:47 Labs: Abnormal Lab Results - Last 24 Hours (Table) 07/01/24 07/02/24 07/02/24 Range/Units 20:14 00:48 02:10 POC Glucose (mg/dL) 224 H 195 H 155 H (70-110) mg/dL 07/02/24 07/02/24 07/02/24 Range/Units 07:12 14:08 14:25 POC Glucose (mg/dL) 137 H 49 L* 45 L* (70-110) mg/dL 07/02/24 07/02/24 07/02/24 Range/Units 14:53 16:57 19:33 POC Glucose (mg/dL) 156 H 158 H 234 H (70-110) mg/dL Microbiology - Last 24 Hours (Table) 06/30/24 15:53 Gram Stain - Final Foot - Left Tissue Culture - Final Staphylococcus aureus 06/30/24 15:53 Gram Stain - Final Foot - Left Wound Culture - Final Staphylococcus aureus 06/30/24 14:00 Blood Culture - Preliminary Blood Assessment and Plan Assessment: 1. End-stage renal disease on hemodialysis on Monday schedule 2. Left foot infection with chronic wound status post debridement and maintained on antibiotics 3. CKD mineral bone disorder 4. Volume overload Plan: Hemodialysis today. I will ask Dr. Walter to clear the AV graft for use and we can have the permacath removed this admission. Continue with PhosLo with meals.
[2024-07-02 21:07] LABS: Glucose,Whole Blood 164 mg/dL (70-110)
[2024-07-03] MEDS: ACETAMINOPHEN TAB 325 MG TAB PO PRN (00:56)
[2024-07-03 01:38] LABS: Glucose,Whole Blood 111 mg/dL (70-110)
[2024-07-03 07:27] LABS: Glucose,Whole Blood 173 mg/dL (70-110)
[2024-07-03 08:46] LABS: Basophils # (A) 0.07 X 10*3/uL (0.00-0.10); Basophils % (A) 0.5 %; Eosinophils # (A) 0.43 X 10*3/uL (0.04-0.35); HCT 29.1 % (39.6-50.0); HGB 9.3 g/dL (13.0-17.0); Lymphocytes # (A) 0.85 X 10*3/uL (0.90-5.00); MCH 31.1 pg (27.0-32.0); MCV 97.3 FL (80.0-97.0); Monocytes # (A) 1.31 X 10*3/uL (0.20-1.00); Monocytes % (A) 9.2 %; NRBC Per 100 WBC 0 X 10*3/uL (0.00-0.01); Neutrophils % (A) 79.8 %; Platelet Count 253 X 10*3/uL (140-440); RBC 2.99 X 10*6/uL (4.40-5.60); WBC 14.28 X 10*3/uL (4.50-10.00)
[2024-07-03] MEDS ORDERED: HYDROcodone/APAP 5-325MG 1 EACH TAB PO PRN (10:29)
[2024-07-03 10:49] LABS: Erythrocyte Sedimentation Rate 77 mm/Hr (0-20)
[2024-07-03 12:10] LABS: Glucose,Whole Blood 134 mg/dL (70-110)
[2024-07-03] MEDS: MORPHINE SULFATE 2 MG/ML SYRINGE IVP PRN (12:50)
[2024-07-03] MEDS: VANCOMYCIN 1,500 MG in SODIUM CHLORIDE 0.9% 500 ML 500 ML IVPB ONE (12:50)
[2024-07-03] MEDS ORDERED: CALCIUM CARBONATE 500 MG CHEWABLE PO PRN (12:52)
--- NOTE | 2024-07-03 13:51 | NM ---
EXAMINATION TYPE: NM bone 3 phase DATE OF EXAM: 07/03/2024 COMPARISON: 06/30/2024 CLINICAL INDICATION: Male, 68 years old with history of left diabetic foot ulcer cellulitis R/O osteo myel; Triple phase bone scintigraphy was performed following the injection of 24.5 mCi Tc 99m MDP. Immedia te images and 5.25 hours post injection images acquired. FINDINGS: There is increased uptake on flow, blood pool and delayed imaging within the left first digit near th e metatarsophalangeal joint. Additional uptake of the left lower extremity more diffuse on blood pool and delayed. IMPRESSION: Evidence for cellulitis of the left foot with possible osteomyelitis of the first digit near the meta tarsophalangeal joint. [facility], , 07/03/2024 1:48 PM
--- NOTE | 2024-07-03 15:23 | CDI ---
Documentation Clarification Form Date: 07/03/2024 11:20:00 AM From: Adilene Diggs RN CCDS Phone: [phone] Admit Date: 06/30/2024 02:20:00 PM Patient Name: Julio César Panchal Visit Number: [id number] Discharge Date: ATTENTION: The Clinical Documentation Specialists (CDI) and [facility] Coding Staff appreciate your assistance in clarifying documentation. Please respond to the clarification below the line at the bottom and electronically sign. The CDI & [facility] Coding staff will review the response and follow-up if needed. Please note: Queries are made part of the Legal Health Record. If you have any questions, please contact the author of this message via ITS. Doctor: Dillan Harley debridement is documented on . Unfortunately, some required elements have not been documented. Additional clarification regarding the procedure is requested. History/Risk Factors: 68 year old male presents to the ED with left foot pain has had been dealing with diabetic ulcers for many years. Medical History: COPD, DM, HLD, HTN, Sleep Apnea CPAP/ BIPAP and Renal Disease. 06/30/2024 Clinical Indicators: Description of Procedure: 06/30/2024 Preop diagnosis is callus plantar aspect the left foot measurement is 2 x 2 cm with mild redness on the dorsum aspect of the foot and involving the big toe Postop is a debridement of the left foot measurement is 2 x 2 x 1 cm Post debridement Left foot was prepped and draped in Prestel manner 1% lidocaine were infiltrated using sharp knife we extended the excision of the necrotic tissue of the left foot plantar aspect all the devitalized tissue was excised we sent for culture the wound was irrigated with saline using extra silver alginate as we packed the wound with silver and pressure dressing applied. Prognosis guarded we will watch very closely patient may need big toe amputation we will change the dressing tomorrow patient is under care of infectious disease for IV antibiotic Treatment: Left foot Excisional debridement necrotic tissue post debridement 2 x 2 x 1cm, necrotic tissue Please clarify Excisional debridement (the removal of necrotic, devitalized tissue or slough by means of cutting away of tissue): Appearance of the wound necrotic tissue Depth of debridement _down to subcutaneous tissue Five elements required for accurate and compliant documentation of a debridement: -Technique used (e.g., excisional, excised, cutting, brushing, jet lavage etc.) -Instrument(s) used (e.g., scalpel, curette, etc.) -Nature of the tissue removed (e.g., necrotic, devitalized tissues, non-viable tissue, etc.) -Appearance and size of the wound (e.g., down to fresh bleeding tissue, 7cm x 10cm, etc.) -Depth of the debridement* (e.g., skin, subcutaneous tissue, fascia, muscle, bone, etc.) Documented 07/[address] Walter excised the callus down to the subcu fat adn the metatarsal phalangeal joint (Template Last Revised: January 2024) MTDD
--- NOTE | 2024-07-03 16:14 | P.PN ---
Subjective Progress Note Date: 07/03/24 Interval History: 68-year-old male who presents to the emergency department for left foot pain. Patient has been dealing with diabetic ulcers for many years. States that he followed up with Dr. Walter yesterday and had some sort of procedure done and since then he has had increasing pain. States that he is unable to ambulate due to the pain. Foot is currently bandaged with some active drainage. Foot is very malodorous. Denies any fevers or chills. Not currently on antibiotics. A couple of his smaller toes appear black. Patient is unsure how long they have been black. Blood work completed in ED reveals a WBC of 20.9, hemoglobin of 10.1 and platelet count of 285, sodium 130, potassium 4.7, BUN/creatinine of 92/6.59, blood glucose of 308 X-ray of the foot reveals osteoarthritic changes without any osseous erosions or evidence of osteomyelitis 2/3 Patient is a pleasant 68 years old male who presents with left foot infection s/p debridement of the callus at the plantar surface of the left foot with cellulitis extending into the big toe. Wound cultures pending, currently covered with cefepime, IV vancomycin and p.o. Flagyl. Pain at the foot is controlled but patient has been complaining from stomach upset, he denies abdominal pain or tenderness, he feels nausea and wants something to help him, currently on Zofran also we will add in TSH Protonix. Patient denies chest pain or dyspnea. No urinary complaints. No other new complaints 2/ Patient left foot pain is controlled, dressing in place, culture is growing presumptive staph, patient kept on IV vancomycin and cefepime and Flagyl as per ID team. Bone scan requested for tomorrow Also he was complaining from stomach upset, he denies stomach pain or abdominal pain, he denies chest pain or dyspnea. He states that his upset is because of the pills most likely referring to his Flagyl pills which is switched to IV Zosy n. Because of poor eating today due to stomach upset he became hypoglycemic, he received juice and D50 injection and his sugar improved. Patient is continued on hemodialysis as per nephrology team 07/03--patient was seen and examined today. Stable. WBCs 14.2, hemoglobin 9.3, platelets normal. ESR 77, CRP 15.7. Bone scan concerning for possible osteomyelitis of first digit near MTP joint. Infectious disease following, currently on Unasyn per ID. Assessment and plan: 1. Infected diabetic left foot ulcer/osteomyelitis -- Patient has been placed on IV cefepime and vancomycin and iv. Flagyl; blood cultures and wound cultures are obtained -- Vascular surgery and ID consulted ---Status post debridement of wound and deep culturesgrowing Staph aureus -- Follow-up wound culture. Pending results growing staph --Was on vancomycin cefepime and Flagyl switched to Unasyn now.>>> --Bone scan --- cellulitis of left foot with possible osteomyelitis of first digit near the MTP joint. 2. Leukocytosis/sepsis; related to infected foot ulcer; wound cultures and blood cultures are obtained; monitor CBC, CRP and procalcitonin 3. Hyperglycemia without acidosis; diabetes mellitus with long-term insulin use; patient takes insulin 70/30 68 units twice daily; monitor Accu-Cheks before every meal and at bedtime with insulin sliding scale -- Had episode of hypoglycemia on 07/02 because of stomach upset, currently improved 4. Hypertension; currently on Coreg 12.5 mg twice daily, hydralazine 100 mg 3 times daily, clonidine 0.1 mg twice daily and losartan 25 mg daily 6. Hyperlipidemia; Lipitor 80 mg p.o. nightly 6. COPD, not in exacerbation; continue with home inhaler therapy 7. Depression; Zoloft 50 mg daily 8. End-stage renal disease/HD; patient maintains a schedule of Monday, Mon and Monday; nephrology is consulted. IV Lasix 80 mg twice daily. Nephrology team DVT prophylaxis: Monitor vital signs and labs Labs and medication were reviewed. Continue same treatment. Further recommendations as per clinical course of the patient PHYSICAL EXAMINATION: GENERAL: The patient is A&O x3, NAD HEENT: EOMI, Sclerae anicteric, Moist Mucous membranes Neck: Supple, Non tender, No JVD PULMONARY: Equal breath souds B/L, No wheezing, No crackles. CARDIOVASCULAR: S1, S2 present. No murmurs, rubs, or gallops. ABDOMEN: Soft, nontender, nondistended, normoactive bowel sounds. No guarding or rebound tenderness. MUSCULOSKELETAL: No edema, No cyanosis. No clubbing. Normal ROM. Intact peripheral pulses. Left foot dressing intact. NEUROLOGICAL: CN 2-12 grossly intact. No FND Skin: No Rash REVIEW OF SYSTEMS: CONSTITUTIONAL: No fever or chills. CARDIOVASCULAR: No chest pain, palpitations or syncope. PULMONARY: No shortness of breath, no cough, sore throat. GASTROINTESTINAL: No nausea, vomiting, diarrhea, abdominal pain. : No Dysuria, urgency, frequency. Extremities: No edema. NEUROLOGICAL: No headaches, no weakness, or numbness Dictation was produced using [employer] dictation software. please excuse any grammatical, word or spelling errors. Objective - Vital Signs Vital signs: Vital Signs Temp 98.5 F 07/03/24 14:58 Pulse 59 L 07/03/24 14:58 Resp 18 07/03/24 14:58 BP 104/52 07/03/24 14:58 Pulse Ox 98 07/03/24 14:58 FiO2 Intake & Output 07/02/24 07/03/24 07/03/24 18:59 06:59 18:59 Intake Total 4260 Output Total 7150 200 300 Balance -2890 -200 -300 Weight 92.3 kg Intake: Oral 860 Hemodialysis 3400 Output: Urine 750 200 300 Hemodialysis 400 Hemodialysis Net Amount 3000 Other 3000 Other: Voiding Method Urinal Urinal # Voids 1 1 - Labs CBC & Chem 7: 07/03/24 04:48 07/01/24 03:47 Labs: Abnormal Lab Results - Last 24 Hours (Table) 07/02/24 07/02/24 07/02/24 Range/Units 16:57 19:33 21:01 WBC (4.50-10.00) X 10*3/uL RBC (4.40-5.60) X 10*6/uL Hgb (13.0-17.0) g/dL Hct (39.6-50.0) % MCV (80.0-97.0) FL Immature Gran # (0.00-0.04) X 10*3/uL Neutrophils # (1.80-7.70) X 10*3/uL Lymphocytes # (0.90-5.00) X 10*3/uL Monocytes # (0.20-1.00) X 10*3/uL Eosinophils # (0.04-0.35) X 10*3/uL ESR (0-20) mm/Hr POC Glucose (mg/dL) 158 H 234 H 164 H (70-110) mg/dL C-Reactive Protein (0.00-0.80) mg/dL 07/03/24 07/03/24 07/03/24 Range/Units 01:36 04:48 04:48 WBC 14.28 H (4.50-10.00) X 10*3/uL RBC 2.99 L (4.40-5.60) X 10*6/uL Hgb 9.3 L (13.0-17.0) g/dL Hct 29.1 L (39.6-50.0) % MCV 97.3 H (80.0-97.0) FL Immature Gran # 0.22 H (0.00-0.04) X 10*3/uL Neutrophils # 11.40 H (1.80-7.70) X 10*3/uL Lymphocytes # 0.85 L (0.90-5.00) X 10*3/uL Monocytes # 1.31 H (0.20-1.00) X 10*3/uL Eosinophils # 0.43 H (0.04-0.35) X 10*3/uL ESR 77 H (0-20) mm/Hr POC Glucose (mg/dL) 111 H (70-110) mg/dL C-Reactive Protein 15.70 H (0.00-0.80) mg/dL 07/03/24 07/03/24 Range/Units 07:26 12:08 WBC (4.50-10.00) X 10*3/uL RBC (4.40-5.60) X 10*6/uL Hgb (13.0-17.0) g/dL Hct (39.6-50.0) % MCV (80.0-97.0) FL Immature Gran # (0.00-0.04) X 10*3/uL Neutrophils # (1.80-7.70) X 10*3/uL Lymphocytes # (0.90-5.00) X 10*3/uL Monocytes # (0.20-1.00) X 10*3/uL Eosinophils # (0.04-0.35) X 10*3/uL ESR (0-20) mm/Hr POC Glucose (mg/dL) 173 H 134 H (70-110) mg/dL C-Reactive Protein (0.00-0.80) mg/dL Microbiology - Last 24 Hours (Table) 06/30/24 14:00 Blood Culture - Preliminary Blood 06/30/24 15:53 Anaerobic Culture - Final Foot - Left Finegoldia magna 06/30/24 15:53 Gram Stain - Final Foot - Left Tissue Culture - Final Staphylococcus aureus 06/30/24 15:53 Gram Stain - Final Foot - Left Wound Culture - Final Staphylococcus aureus
[2024-07-03] MEDS: AMPICILLIN-SULBACTAM 3 GM in SODIUM CHLORIDE 0.9% 100 ML IVPB SCH (16:23)
[2024-07-03 17:22] LABS: Glucose,Whole Blood 155 mg/dL (70-110)
[2024-07-03 20:19] LABS: Glucose,Whole Blood 179 mg/dL (70-110)
--- NOTE | 2024-07-03 22:29 | P.PN ---
Subjective Patient is seen for follow-up for end-stage renal disease. Maintained on hemodialysis on Saturdays No complaints of shortness of breath. Patient has a left arm AV graft which has been cleared by vascular surgery to be used Objective - Vital Signs Vital signs: Vital Signs Temp 98.3 F 07/03/24 19:55 Pulse 67 07/03/24 19:55 Resp 18 07/03/24 19:55 BP 126/56 07/03/24 19:55 Pulse Ox 97 07/03/24 19:55 FiO2 Intake & Output 07/03/24 07/03/24 07/04/24 06:59 18:59 06:59 Output Total 200 300 Balance -200 -300 Weight 92.3 kg Output: Urine 200 300 Other: Voiding Method Urinal # Voids 1 - Exam Patient is awake, comfortable, no acute distress. Examination of the heart S1 and S2 Examination of the lungs bilateral breath sounds are heard Lower extremities shows no significant edema left foot is wrapped. 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 - Labs CBC & Chem 7: 07/03/24 04:48 07/01/24 03:47 Labs: Abnormal Lab Results - Last 24 Hours (Table) 07/03/24 07/03/24 07/03/24 Range/Units 01:36 04:48 04:48 WBC 14.28 H (4.50-10.00) X 10*3/uL RBC 2.99 L (4.40-5.60) X 10*6/uL Hgb 9.3 L (13.0-17.0) g/dL Hct 29.1 L (39.6-50.0) % MCV 97.3 H (80.0-97.0) FL Immature Gran # 0.22 H (0.00-0.04) X 10*3/uL Neutrophils # 11.40 H (1.80-7.70) X 10*3/uL Lymphocytes # 0.85 L (0.90-5.00) X 10*3/uL Monocytes # 1.31 H (0.20-1.00) X 10*3/uL Eosinophils # 0.43 H (0.04-0.35) X 10*3/uL ESR 77 H (0-20) mm/Hr POC Glucose (mg/dL) 111 H (70-110) mg/dL C-Reactive Protein 15.70 H (0.00-0.80) mg/dL 07/03/24 07/03/24 07/03/24 Range/Units 07:26 12:08 17:21 WBC (4.50-10.00) X 10*3/uL RBC (4.40-5.60) X 10*6/uL Hgb (13.0-17.0) g/dL Hct (39.6-50.0) % MCV (80.0-97.0) FL Immature Gran # (0.00-0.04) X 10*3/uL Neutrophils # (1.80-7.70) X 10*3/uL Lymphocytes # (0.90-5.00) X 10*3/uL Monocytes # (0.20-1.00) X 10*3/uL Eosinophils # (0.04-0.35) X 10*3/uL ESR (0-20) mm/Hr POC Glucose (mg/dL) 173 H 134 H 155 H (70-110) mg/dL C-Reactive Protein (0.00-0.80) mg/dL 07/03/24 Range/Units 20:14 WBC (4.50-10.00) X 10*3/uL RBC (4.40-5.60) X 10*6/uL Hgb (13.0-17.0) g/dL Hct (39.6-50.0) % MCV (80.0-97.0) FL Immature Gran # (0.00-0.04) X 10*3/uL Neutrophils # (1.80-7.70) X 10*3/uL Lymphocytes # (0.90-5.00) X 10*3/uL Monocytes # (0.20-1.00) X 10*3/uL Eosinophils # (0.04-0.35) X 10*3/uL ESR (0-20) mm/Hr POC Glucose (mg/dL) 179 H (70-110) mg/dL C-Reactive Protein (0.00-0.80) mg/dL Microbiology - Last 24 Hours (Table) 06/30/24 14:00 Blood Culture - Preliminary Blood 06/30/24 15:53 Anaerobic Culture - Final Foot - Left Finegoldia magna 06/30/24 15:53 Gram Stain - Final Foot - Left Tissue Culture - Final Staphylococcus aureus 06/30/24 15:53 Gram Stain - Final Foot - Left Wound Culture - Final Staphylococcus aureus Assessment and Plan Assessment: 1. End-stage renal disease on hemodialysis on Monday schedule 2. Left foot infection with chronic wound status post debridement and maintained on antibiotics 3. CKD mineral bone disorder 4. Volume overload Plan: Hemodialysis in a.m. Use AV graft tomorrow and we can discontinue dialysis catheter if there are no issues accessing the graft.
--- NOTE | 2024-07-04 00:10 | PN ---
PROGRESS NOTE The patient has history of chronic renal failure on dialysis. The patient had an infected callus plantar distal aspect of the right foot. We excised the callus down to metatarsophalangeal joint. The patient is on IV antibiotic under the care of Infectious Disease. Today we have changed the dressing. We used Aquacel Silver rope, dressing applied, minor drainage noted. We will change the dressing tomorrow. MMODL / IJN: [id number] /
[2024-07-04 02:00] LABS: Glucose,Whole Blood 67 mg/dL (70-110)
[2024-07-04 02:18] LABS: Glucose,Whole Blood 82 mg/dL (70-110)
[2024-07-04 06:59] LABS: Glucose,Whole Blood 89 mg/dL (70-110)
--- NOTE | 2024-07-04 08:58 | P.PN ---
Subjective Progress Note Date: 07/03/24 Principal diagnosis: Reason for follow-up is left diabetic foot infection concerning for possible osteo- Patient is a 68-year-old male with a past medical history significant for COPD, Diabetes Mellitus, Eye Disorder, Hyperlipidemia, Hypertension, Myocardial Infarction (MO), Osteoarthritis (OA), Renal Disease, Sleep Apnea/CPAP/BIPAP, presenting to the hospital for evaluation of left foot pain. Patient did have Diabetic foot ulcer status post surgical debridement. On today's evaluation that is 07/03/2024,the patient denies any fever or any chills, patient is breathing comfortably on 2 L current oxygen, the patient denies chest pain shortness of breath and no significant cough, patient denies abdominal pain, no nausea vomiting or diarrhea. Pain to the left foot is cur rently controlled. Patient white count is 14.28 CRP 15.70 culture positive for MSSA and Finegoldia magna with the bone scan pending Objective - Vital Signs Vital signs: Vital Signs Temp 97.9 F 07/03/24 08:00 Pulse 68 07/03/24 08:00 Resp 20 07/03/24 08:00 BP 160/58 07/03/24 08:00 Pulse Ox 99 07/03/24 01:43 FiO2 Intake & Output 07/02/24 07/03/24 07/03/24 18:59 06:59 18:59 Intake Total 4260 Output Total 7150 200 100 Balance -2890 -200 -100 Weight 92.3 kg Intake: Oral 860 Hemodialysis 3400 Output: Urine 750 200 100 Hemodialysis 400 Hemodialysis Net Amount 3000 Other 3000 Other: Voiding Method Urinal Urinal # Voids 1 1 - Exam GENERAL DESCRIPTION: An elderly male lying in bed in no distress RESPIRATORY SYSTEM: Unlabored breathing , decreased breath sounds at bases HEART: S1 S2 regular rate and rhythm , ABDOMEN: Soft , no tenderness EXTREMITIES: Left foot wound is currently dressed - Labs CBC & Chem 7: 07/03/24 04:48 07/01/24 03:47 Labs: Abnormal Lab Results - Last 24 Hours (Table) 07/02/24 07/02/24 07/02/24 Range/Units 14:08 14:25 14:53 WBC (4.50-10.00) X 10*3/uL RBC (4.40-5.60) X 10*6/uL Hgb (13.0-17.0) g/dL Hct (39.6-50.0) % MCV (80.0-97.0) FL Immature Gran # (0.00-0.04) X 10*3/uL Neutrophils # (1.80-7.70) X 10*3/uL Lymphocytes # (0.90-5.00) X 10*3/uL Monocytes # (0.20-1.00) X 10*3/uL Eosinophils # (0.04-0.35) X 10*3/uL ESR (0-20) mm/Hr POC Glucose (mg/dL) 49 L* 45 L* 156 H (70-110) mg/dL C-Reactive Protein (0.00-0.80) mg/dL 07/02/24 07/02/24 07/02/24 Range/Units 16:57 19:33 21:01 WBC (4.50-10.00) X 10*3/uL RBC (4.40-5.60) X 10*6/uL Hgb (13.0-17.0) g/dL Hct (39.6-50.0) % MCV (80.0-97.0) FL Immature Gran # (0.00-0.04) X 10*3/uL Neutrophils # (1.80-7.70) X 10*3/uL Lymphocytes # (0.90-5.00) X 10*3/uL Monocytes # (0.20-1.00) X 10*3/uL Eosinophils # (0.04-0.35) X 10*3/uL ESR (0-20) mm/Hr POC Glucose (mg/dL) 158 H 234 H 164 H (70-110) mg/dL C-Reactive Protein (0.00-0.80) mg/dL 07/03/24 07/03/24 07/03/24 Range/Units 01:36 04:48 04:48 WBC 14.28 H (4.50-10.00) X 10*3/uL RBC 2.99 L (4.40-5.60) X 10*6/uL Hgb 9.3 L (13.0-17.0) g/dL Hct 29.1 L (39.6-50.0) % MCV 97.3 H (80.0-97.0) FL Immature Gran # 0.22 H (0.00-0.04) X 10*3/uL Neutrophils # 11.40 H (1.80-7.70) X 10*3/uL Lymphocytes # 0.85 L (0.90-5.00) X 10*3/uL Monocytes # 1.31 H (0.20-1.00) X 10*3/uL Eosinophils # 0.43 H (0.04-0.35) X 10*3/uL ESR 77 H (0-20) mm/Hr POC Glucose (mg/dL) 111 H (70-110) mg/dL C-Reactive Protein 15.70 H (0.00-0.80) mg/dL 07/03/24 07/03/24 Range/Units 07:26 12:08 WBC (4.50-10.00) X 10*3/uL RBC (4.40-5.60) X 10*6/uL Hgb (13.0-17.0) g/dL Hct (39.6-50.0) % MCV (80.0-97.0) FL Immature Gran # (0.00-0.04) X 10*3/uL Neutrophils # (1.80-7.70) X 10*3/uL Lymphocytes # (0.90-5.00) X 10*3/uL Monocytes # (0.20-1.00) X 10*3/uL Eosinophils # (0.04-0.35) X 10*3/uL ESR (0-20) mm/Hr POC Glucose (mg/dL) 173 H 134 H (70-110) mg/dL C-Reactive Protein (0.00-0.80) mg/dL Microbiology - Last 24 Hours (Table) 06/30/24 14:00 Blood Culture - Preliminary Blood 06/30/24 15:53 Anaerobic Culture - Final Foot - Left Finegoldia magna 06/30/24 15:53 Gram Stain - Final Foot - Left Tissue Culture - Final Staphylococcus aureus 06/30/24 15:53 Gram Stain - Final Foot - Left Wound Culture - Final Staphylococcus aureus Assessment and Plan (1) Diabetic foot ulcers Current Visit: Yes Status: Acute Code(s): E11.621 - TYPE 2 DIABETES MELLITUS WITH FOOT ULCER; L97.509 - NON-PRESSURE CHRONIC ULCER OTH PRT UNSP FOOT W UNSP SEVERITY SNOMED Code(s): 020326065 (2) Left foot infection Current Visit: Yes Status: Acute Code(s): L08.9 - LOCAL INFECTION OF THE SKIN AND SUBCUTANEOUS TISSUE, UNSP SNOMED Code(s): 547586907 (3) Leukocytosis Current Visit: Yes Status: Acute Code(s): D72.829 - ELEVATED WHITE BLOOD CELL COUNT, UNSPECIFIED SNOMED Code(s): 427489042 Plan: 1patient with extensive diabetic foot ulcer/infection especially at the base of the first metatarsal with associated swelling redness concerning for a deep gravity of infection and possible early osteomyelitis will need to cover for the polymicrobial elena associated with diabetic foot infection. 2patient with left third toe dry gangrene. 3-significant leukocytosis likely due to diabetic foot infection which is trending down 4patient is status post debridement of the wound and deep culture results are currently growing MSSA and Finegoldia magna bone scan is in progress 5I will discontinue cefepime, vancomycin and Flagyl and start the patient on Unasyn will need IV cefazolin through the dialysis so we can avoid PICC line placement sample case porter to arrange for it Dictation was produced using [employer] dictation software. please excuse any grammatical, word or spelling errors. Time with Patient: Less than 30
[2024-07-04] MEDS ORDERED: DEXTROSE 50% SYRINGE 50 ML IVP PRN ×2 (10:24)
[2024-07-04 11:39] LABS: Blood Urea Nitrogen 66.1 mg/dL (9.0-27.0); Calcium 6.9 mg/dL (8.7-10.3); Carbon Dioxide 24.9 mmol/L (21.6-31.8); Chloride 97 mmol/L (96-109); Glucose 85 mg/dL (70-110); Potassium 5.4 mmol/L (3.5-5.5); Sodium 136 mmol/L (135-145)
[2024-07-04 12:04] LABS: Glucose,Whole Blood 126 mg/dL (70-110)
--- NOTE | 2024-07-04 13:49 | P.PN ---
Subjective Interval History: 68-year-old male who presents to the emergency department for left foot pain. Patient has been dealing with diabetic ulcers for many years. States that he followed up with Dr. Walter yesterday and had some sort of procedure done and since then he has had increasing pain. States that he is unable to ambulate due to the pain. Foot is currently bandaged with some active drainage. Foot is very malodorous. Denies any fevers or chills. Not currently on antibiotics. A couple of his smaller toes appear black. Patient is unsure how long they have been black. Blood work completed in ED reveals a WBC of 20.9, hemoglobin of 10.1 and platelet count of 285, sodium 130, potassium 4.7, BUN/creatinine of 92/6.59, blood glucose of 308 X-ray of the foot reveals osteoarthritic changes without any osseous erosions or evidence of osteomyelitis 07/01 Patient is a pleasant 68 years old male who presents with left foot infection s/p debridement of the callus at the plantar surface of the left foot with cellulitis extending into the big toe. Wound cultures pending, currently covered with cefepime, IV vancomycin and p.o. Flagyl. Pain at the foot is controlled but patient has been complaining from stomach upset, he denies abdominal pain or tenderness, he feels nausea and wants something to help him, currently on Zofran also we will add in TSH Protonix. Patient denies chest pain or dyspnea. No urinary complaints. No other new complaints / Patient left foot pain is controlled, dressing in place, culture is growing pres umptive staph, patient kept on IV vancomycin and cefepime and Flagyl as per ID team. Bone scan requested for tomorrow Also he was complaining from stomach upset, he denies stomach pain or abdominal pain, he denies chest pain or dyspnea. He states that his upset is because of the pills most likely referring to his Flagyl pills which is switched to IV Zosyn. Because of poor eating today due to stomach upset he became hypoglycemic, he received juice and D50 injection and his sugar improved. Patient is continued on hemodialysis as per nephrology team 07/03--patient was seen and examined today. Stable. WBCs 14.2, hemoglobin 9.3, platelets normal. ESR 77, CRP 15.7. Bone scan concerning for possible osteomyelitis of first digit near MTP joint. Infectious disease following, currently on Unasyn per ID. 07/04--patient was seen and examined today. Vital stable, remained afebrile. BMP today showed sodium 136, potassium 5.4, chloride 97, BUN 66, creatinine 5.7. Nephrology following, patient undergoing hemodialysis today. Currently on Unasyn, infectious disease following. Plan for IV cefazolin on discharge. Assessment and plan: 1. Infected diabetic left foot ulcer/osteomyelitis -- Patient has been placed on IV cefepime and vancomycin and iv. Flagyl; blood cultures and wound cultures are obtained -- Vascular surgery and ID consulted ---Status post debridement of wound and deep culturesgrowing MSSA and Finegoldia magna -- Follow-up wound culture. Pending results growing staph --Was on vancomycin cefepime and Flagyl switched to Unasyn now.>>> --Bone scan --- cellulitis of left foot with possible osteomyelitis of first digit near the MTP joint. 2. Leukocytosis/sepsis; related to infected foot ulcer; wound cultures and blood cultures are obtained; monitor CBC, CRP and procalcitonin 3. Hyperglycemia without acidosis; diabetes mellitus with long-term insulin use; patient takes insulin 70/30 68 units twice daily; monitor Accu-Cheks before every meal and at bedtime with insulin sliding scale -- Had episode of hypoglycemia on 07/02 because of stomach upset, currently imp roved 4. Hypertension; currently on Coreg 12.5 mg twice daily, hydralazine 100 mg 3 times daily, clonidine 0.1 mg twice daily and losartan 25 mg daily 6. Hyperlipidemia; Lipitor 80 mg p.o. nightly 6. COPD, not in exacerbation; continue with home inhaler therapy 7. Depression; Zoloft 50 mg daily 8. End-stage renal disease/HD; patient maintains a schedule of Monday, and Monday; nephrology is consulted. IV Lasix 80 mg twice daily. Nephrology team DVT prophylaxis: Monitor vital signs and labs Labs and medication were reviewed. Continue same treatment. Further recommendations as per clinical course of the patient PHYSICAL EXAMINATION: GENERAL: The patient is A&O x3, NAD HEENT: EOMI, Sclerae anicteric, Moist Mucous membranes Neck: Supple, Non tender, No JVD PULMONARY: Equal breath souds B/L, No wheezing, No crackles. CARDIOVASCULAR: S1, S2 present. No murmurs, rubs, or gallops. ABDOMEN: Soft, nontender, nondistended, normoactive bowel sounds. No guarding or rebound tenderness. MUSCULOSKELETAL: No edema, No cyanosis. No clubbing. Normal ROM. Intact periphe ral pulses. Left foot dressing intact. NEUROLOGICAL: CN 2-12 grossly intact. No FND Skin: No Rash REVIEW OF SYSTEMS: CONSTITUTIONAL: No fever or chills. CARDIOVASCULAR: No chest pain, palpitations or syncope. PULMONARY: No shortness of breath, no cough, sore throat. GASTROINTESTINAL: No nausea, vomiting, diarrhea, abdominal pain. : No Dysuria, urgency, frequency. Extremities: No edema. NEUROLOGICAL: No headaches, no weakness, or numbness Dictation was produced using [employer] dictation software. please excuse any grammatical, word or spelling errors. Objective - Vital Signs Vital signs: Vital Signs Temp 98.2 F 07/04/24 11:45 Pulse 56 L 07/04/24 11:45 Resp 16 07/04/24 11:45 BP 127/62 07/04/24 11:45 Pulse Ox 100 07/04/24 11:45 FiO2 Intake & Output 07/03/24 07/04/24 07/04/24 18:59 06:59 18:59 Intake Total 480 Output Total 300 Balance -300 480 Weight 93.4 kg Intake: Oral 480 Output: Urine 300 Other: Voiding Method Urinal # Voids 1 300 - Labs CBC & Chem 7: 07/03/24 04:48 07/04/24 06:50 Labs: Abnormal Lab Results - Last 24 Hours (Table) 07/03/24 07/03/24 07/04/24 Range/Units 17:21 20:14 01:56 Anion Gap (4.00-12.00) mmol/L BUN (9.0-27.0) mg/dL Creatinine (0.6-1.5) mg/dL Est GFR (CKD-EPI) (>=60) BUN/Creatinine Ratio (12.00-20.00) Ratio POC Glucose (mg/dL) 155 H 179 H 67 L (70-110) mg/dL Calcium (8.7-10.3) mg/dL 07/04/24 07/04/24 Range/Units 06:50 12:03 Anion Gap 14.10 H (4.00-12.00) mmol/L BUN 66.1 H (9.0-27.0) mg/dL Creatinine 5.7 H (0.6-1.5) mg/dL Est GFR (CKD-EPI) 10 L (>=60) BUN/Creatinine Ratio 11.60 L (12.00-20.00) Ratio POC Glucose (mg/dL) 126 H (70-110) mg/dL Calcium 6.9 L (8.7-10.3) mg/dL Microbiology - Last 24 Hours (Table) 06/30/24 14:00 Blood Culture - Preliminary Blood
--- NOTE | 2024-07-04 13:52 | P.PN ---
Subjective Patient is seen for follow-up for end-stage renal disease. Maintained on hemodialysis on Saturdays No complaints of shortness of breath. Seen on hemodialysis. Tolerating treatment well. Objective - Vital Signs Vital signs: Vital Signs Temp 98.2 F 07/04/24 11:45 Pulse 56 L 07/04/24 11:45 Resp 16 07/04/24 11:45 BP 127/62 07/04/24 11:45 Pulse Ox 100 07/04/24 11:45 FiO2 Intake & Output 07/03/24 07/04/24 07/04/24 18:59 06:59 18:59 Intake Total 480 Output Total 300 Balance -300 480 Weight 93.4 kg Intake: Oral 480 Output: Urine 300 Other: Voiding Method Urinal # Voids 1 300 - Exam Patient is awake, comfortable, no acute distress. Examination of the heart S1 and S2 Examination of the lungs bilateral breath sounds are heard Lower extremities shows no significant edema left foot is wrapped. [employer] exam grossly intact - Labs CBC & Chem 7: 07/03/24 04:48 07/04/24 06:50 Labs: Abnormal Lab Results - Last 24 Hours (Table) 07/03/24 07/03/24 07/04/24 Range/Units 17:21 20:14 01:56 Anion Gap (4.00-12.00) mmol/L BUN (9.0-27.0) mg/dL Creatinine (0.6-1.5) mg/dL Est GFR (CKD-EPI) (>=60) BUN/Creatinine Ratio (12.00-20.00) Ratio POC Glucose (mg/dL) 155 H 179 H 67 L (70-110) mg/dL Calcium (8.7-10.3) mg/dL 07/04/24 07/04/24 Range/Units 06:50 12:03 Anion Gap 14.10 H (4.00-12.00) mmol/L BUN 66.1 H (9.0-27.0) mg/dL Creatinine 5.7 H (0.6-1.5) mg/dL Est GFR (CKD-EPI) 10 L (>=60) BUN/Creatinine Ratio 11.60 L (12.00-20.00) Ratio POC Glucose (mg/dL) 126 H (70-110) mg/dL Calcium 6.9 L (8.7-10.3) mg/dL Microbiology - Last 24 Hours (Table) 06/30/24 14:00 Blood Culture - Preliminary Blood Assessment and Plan Assessment: 1. End-stage renal disease on hemodialysis on Monday schedule 2. Left foot infection with chronic wound status post debridement and maintained on antibiotics 3. CKD mineral bone disorder 4. Volume overload Plan: Hemodialysis on TTS schedule Remove IJ permacath in a.m.
[2024-07-04 14:48] LABS: HCT 29.8 % (39.6-50.0); HGB 9.1 g/dL (13.0-17.0); MCH 30.6 pg (27.0-32.0); MCHC 30.5 g/dL (32.0-37.0); MCV 100.3 FL (80.0-97.0); Mean Platelet Volume 9.8 FL (9.5-12.2); NRBC Per 100 WBC 0 X 10*3/uL (0.00-0.01); Platelet Count 308 X 10*3/uL (140-440); RBC 2.97 X 10*6/uL (4.40-5.60); RDW 13.2 % (11.5-14.5); WBC 15.38 X 10*3/uL (4.50-10.00)
[2024-07-04 14:49] LABS: Basophils % (A) 0.7 %; Eosinophils # (A) 0.43 X 10*3/uL (0.04-0.35); Eosinophils % (A) 2.8 %; Lymphocytes # (A) 0.87 X 10*3/uL (0.90-5.00); Lymphocytes % (A) 5.7 %; Monocytes # (A) 1.44 X 10*3/uL (0.20-1.00); Monocytes % (A) 9.4 %; Neutrophils # (A) 12.36 X 10*3/uL (1.80-7.70); Neutrophils % (A) 80.2 %
[2024-07-04] MEDS: MIDODRINE 5 MG TAB PO ONE (15:42)
[2024-07-04 17:09] LABS: Glucose,Whole Blood 226 mg/dL (70-110)
[2024-07-04] MEDS: AMPICILLIN-SULBACTAM 3 GM in SODIUM CHLORIDE 0.9% 100 ML IVPB SCH (18:19)
[2024-07-04] MEDS: INSULN ASP PRT/INSULIN ASPART 100 UNIT/ML 10 ML VIAL SQ SCH (18:21)
[2024-07-04 19:16] LABS: Glucose,Whole Blood 237 mg/dL (70-110)
[2024-07-05 02:24] LABS: Glucose,Whole Blood 155 mg/dL (70-110)
[2024-07-05 07:05] LABS: Glucose,Whole Blood 175 mg/dL (70-110)
[2024-07-05 12:21] LABS: Glucose,Whole Blood 210 mg/dL (70-110)
--- NOTE | 2024-07-05 12:47 | P.PN ---
Subjective Progress Note Date: 07/04/24 Principal diagnosis: Reason for follow-up is left diabetic foot infection concerning for possible osteo- Patient is a 68-year-old male with a past medical history significant for COPD, Diabetes Mellitus, Eye Disorder, Hyperlipidemia, Hypertension, Myocardial Infarction ([place]), Osteoarthritis (OA), Renal Disease, Sleep Apnea/CPAP/BIPAP, presenting to the hospital for evaluation of left foot pain. Patient did have Diabetic foot ulcer status post surgical debridement. On today's evaluation that is 07/04/2024,the patient remains to be afebrile, patient is on room air not requiring supplemental oxygen and denies any shortness of breath no chest pain or cough.Patient denies having any nausea or vomiting, no abdominal pain and no diarrhea has been reported and denies any worsening pain to the left foot wound area. Patient white count slightly up to 15.3 today, creatinine is 5.7 cultures with MSSA and Finegoldia Objective - Vital Signs Vital signs: Vital Signs Temp 97.6 F 07/04/24 14:16 Pulse 75 07/04/24 14:16 Resp 20 07/04/24 14:16 BP 150/76 07/04/24 14:16 Pulse Ox 100 07/04/24 13:55 FiO2 Intake & Output 07/03/24 07/04/24 07/04/24 18:59 06:59 18:59 Intake Total 3960 Output Total 300 2800 Balance -300 1160 Weight 93.4 kg Intake: Oral 1560 Hemodialysis 2400 Output: Urine 300 400 Hemodialysis 400 Hemodialysis Net Amount 2000 Other: Voiding Method Urinal Urinal # Voids 1 300 2 - Exam GENERAL DESCRIPTION: An elderly male lying in bed in no distress RESPIRATORY SYSTEM: Unlabored breathing , decreased breath sounds at bases HEART: S1 S2 regular rate and rhythm , ABDOMEN: Soft , no tenderness EXTREMITIES: Left foot wound is currently dressed - Labs CBC & Chem 7: 07/04/24 06:50 07/04/24 06:50 Labs: Abnormal Lab Results - Last 24 Hours (Table) 07/03/24 07/03/24 07/04/24 Range/Units 17:21 20:14 01:56 WBC (4.50-10.00) X 10*3/uL RBC (4.40-5.60) X 10*6/uL Hgb (13.0-17.0) g/dL Hct (39.6-50.0) % MCV (80.0-97.0) FL MCHC (32.0-37.0) g/dL Immature Gran # (0.00-0.04) X 10*3/uL Neutrophils # (1.80-7.70) X 10*3/uL Lymphocytes # (0.90-5.00) X 10*3/uL Monocytes # (0.20-1.00) X 10*3/uL Eosinophils # (0.04-0.35) X 10*3/uL Anion Gap (4.00-12.00) mmol/L BUN (9.0-27.0) mg/dL Creatinine (0.6-1.5) mg/dL Est GFR (CKD-EPI) (>=60) BUN/Creatinine Ratio (12.00-20.00) Ratio POC Glucose (mg/dL) 155 H 179 H 67 L (70-110) mg/dL Calcium (8.7-10.3) mg/dL 07/04/24 07/04/24 07/04/24 Range/Units 06:50 06:50 12:03 WBC 15.38 H (4.50-10.00) X 10*3/uL RBC 2.97 L (4.40-5.60) X 10*6/uL Hgb 9.1 L (13.0-17.0) g/dL Hct 29.8 L (39.6-50.0) % MCV 100.3 H (80.0-97.0) FL MCHC 30.5 L (32.0-37.0) g/dL Immature Gran # 0.18 H (0.00-0.04) X 10*3/uL Neutrophils # 12.36 H (1.80-7.70) X 10*3/uL Lymphocytes # 0.87 L (0.90-5.00) X 10*3/uL Monocytes # 1.44 H (0.20-1.00) X 10*3/uL Eosinophils # 0.43 H (0.04-0.35) X 10*3/uL Anion Gap 14.10 H (4.00-12.00) mmol/L BUN 66.1 H (9.0-27.0) mg/dL Creatinine 5.7 H (0.6-1.5) mg/dL Est GFR (CKD-EPI) 10 L (>=60) BUN/Creatinine Ratio 11.60 L (12.00-20.00) Ratio POC Glucose (mg/dL) 126 H (70-110) mg/dL Calcium 6.9 L (8.7-10.3) mg/dL Microbiology - Last 24 Hours (Table) 06/30/24 14:00 Blood Culture - Preliminary Blood Assessment and Plan (1) Diabetic foot ulcers Current Visit: Yes Status: Acute Code(s): E11.621 - TYPE 2 DIABETES MELLITUS WITH FOOT ULCER; L97.509 - NON-PRESSURE CHRONIC ULCER OTH PRT UNSP FOOT W UNSP SEVERITY SNOMED Code(s): 261004098 (2) Left foot infection Current Visit: Yes Status: Acute Code(s): L08.9 - LOCAL INFECTION OF THE SKIN AND SUBCUTANEOUS TISSUE, UNSP SNOMED Code(s): 467710240 (3) Leukocytosis Current Visit: Yes Status: Acute Code(s): D72.829 - ELEVATED WHITE BLOOD CELL COUNT, UNSPECIFIED SNOMED Code(s): 525837210 Plan: 1patient with extensive diabetic foot ulcer/infection especially at the base of the first metatarsal with associated swelling redness concerning for a deep gravity of infection and possible early osteomyelitis will need to cover for the polymicrobial elena associated with diabetic foot infection. 2patient with left third toe dry gangrene. 3-significant leukocytosis likely due to diabetic foot infection which was trending down as of yesterday slightly up today will be monitored 4patient is status post debridement of the wound and deep culture results are currently growing MSSA and Finegoldia magna bone scan is suggestive of osteomyelitis 5patient is currently being treated with Unasyn however plan is for IV cefazolin through the dialysis so we can avoid PICC line placement manager of case management to arrange for it Dictation was produced using [employer] dictation software. please excuse any gra mmatical, word or spelling errors. Time with Patient: Less than 30
--- NOTE | 2024-07-05 12:48 | P.PN ---
Subjective Progress Note Date: 07/05/24 Principal diagnosis: Reason for follow-up is left diabetic foot infection concerning for possible osteo- Patient is a 68-year-old male with a past medical history significant for COPD, Diabetes Mellitus, Eye Disorder, Hyperlipidemia, Hypertension, Myocardial Infarction ([place]), Osteoarthritis (OA), Renal Disease, Sleep Apnea/CPAP/BIPAP, presenting to the hospital for evaluation of left foot pain. Patient did have Diabetic foot ulcer status post surgical debridement. On today's evaluation that is 07/05/2024, the patient did spike a fever last evening of 102.8 F I was not notified patient is afebrile this morning patient is breathing comfortably no chest pain shortness of breath or cough no nausea no vomiting no abdominal pain or any worsening pain to left foot wound area. Labs are pending from this morning Objective - Vital Signs Vital signs: Vital Signs Temp 98.1 F 07/05/24 08:00 Pulse 78 07/05/24 08:00 Resp 16 07/05/24 08:00 BP 149/65 07/05/24 08:00 Pulse Ox 99 07/05/24 08:00 FiO2 Intake & Output 07/04/24 07/05/24 07/05/24 18:59 06:59 18:59 Intake Total 4440 240 Output Total 2900 450 150 Balance 1540 -450 90 Weight 94.3 kg Intake: Oral 2040 240 Hemodialysis 2400 Output: Urine 500 450 150 Hemodialysis 400 Hemodialysis Net Amount 2000 Other: Voiding Method Urinal # Voids 2 1 - Exam GENERAL DESCRIPTION: An elderly male lying in bed in no distress RESPIRATORY SYSTEM: Unlabored breathing , decreased breath sounds at bases HEART: S1 S2 regular rate and rhythm , ABDOMEN: Soft , no tenderness EXTREMITIES: Left foot wound is currently dressed - Labs CBC & Chem 7: 07/04/24 06:50 07/04/24 06:50 Labs: Abnormal Lab Results - Last 24 Hours (Table) 07/04/24 07/04/24 07/04/24 Range/Units 06:50 17:07 19:14 WBC 15.38 H (4.50-10.00) X 10*3/uL RBC 2.97 L (4.40-5.60) X 10*6/uL Hgb 9.1 L (13.0-17.0) g/dL Hct 29.8 L (39.6-50.0) % MCV 100.3 H (80.0-97.0) FL MCHC 30.5 L (32.0-37.0) g/dL Immature Gran # 0.18 H (0.00-0.04) X 10*3/uL Neutrophils # 12.36 H (1.80-7.70) X 10*3/uL Lymphocytes # 0.87 L (0.90-5.00) X 10*3/uL Monocytes # 1.44 H (0.20-1.00) X 10*3/uL Eosinophils # 0.43 H (0.04-0.35) X 10*3/uL POC Glucose (mg/dL) 226 H 237 H (70-110) mg/dL 07/05/24 07/05/24 07/05/24 Range/Units 02:22 06:58 12:11 WBC (4.50-10.00) X 10*3/uL RBC (4.40-5.60) X 10*6/uL Hgb (13.0-17.0) g/dL Hct (39.6-50.0) % MCV (80.0-97.0) FL MCHC (32.0-37.0) g/dL Immature Gran # (0.00-0.04) X 10*3/uL Neutrophils # (1.80-7.70) X 10*3/uL Lymphocytes # (0.90-5.00) X 10*3/uL Monocytes # (0.20-1.00) X 10*3/uL Eosinophils # (0.04-0.35) X 10*3/uL POC Glucose (mg/dL) 155 H 175 H 210 H (70-110) mg/dL Assessment and Plan (1) Diabetic foot ulcers Current Visit: Yes Status: Acute Code(s): E11.621 - TYPE 2 DIABETES MELLITUS WITH FOOT ULCER; L97.509 - NON-PRESSURE CHRONIC ULCER OTH PRT UNSP FOOT W UNSP SEVERITY SNOMED Code(s): 103390775 (2) Left foot infection Current Visit: Yes Status: Acute Code(s): L08.9 - LOCAL INFECTION OF THE SKIN AND SUBCUTANEOUS TISSUE, UNSP SNOMED Code(s): 133679286 (3) Leukocytosis Current Visit: Yes Status: Acute Code(s): D72.829 - ELEVATED WHITE BLOOD CELL COUNT, UNSPECIFIED SNOMED Code(s): 492169355 Plan: 1patient with extensive diabetic foot ulcer/infection especially at the base of the first metatarsal with associated swelling redness concerning for a deep gravity of infection and possible early osteomyelitis will need to cover for the polymicrobial elena associated with diabetic foot infection. 2patient with left third toe dry gangrene. 3-significant leukocytosis likely due to diabetic foot infection which was trending down as of yesterday slightly up yesterday labs pending from this morning 4patient is status post debridement of the wound and deep culture results are currently growing MSSA and Finegoldia magna bone scan is suggestive of osteomyelitis 5patient is currently being treated with Unasyn did have a fever which is slightly concerning patient need to monitor inpatient to make sure resolution of his fever and white count is trending down before discharge Dictation was produced using [email or web address] dictation software. please excuse any grammatical, word or spelling errors. Time with Patient: Less than 30
--- NOTE | 2024-07-05 13:29 | P.PN ---
Subjective Interval History: 68-year-old male who presents to the emergency department for left foot pain. Patient has been dealing with diabetic ulcers for many years. States that he followed up with Dr. Walter yesterday and had some sort of procedure done and since then he has had increasing pain. States that he is unable to ambulate due to the pain. Foot is currently bandaged with some active drainage. Foot is very malodorous. Denies any fevers or chills. Not currently on antibiotics. A couple of his smaller toes appear black. Patient is unsure how long they have been black. Blood work completed in ED reveals a WBC of 20.9, hemoglobin of 10.1 and platelet count of 285, sodium 130, potassium 4.7, BUN/creatinine of 92/6.59, blood glucose of 308 X-ray of the foot reveals osteoarthritic changes without any osseous erosions or evidence of osteomyelitis 07/01 Patient is a pleasant 68 years old male who presents with left foot infection s/p debridement of the callus at the plantar surface of the left foot with cellulitis extending into the big toe. Wound cultures pending, currently covered with cefepime, IV vancomycin and p.o. Flagyl. Pain at the foot is controlled but patient has been complaining from stomach upset, he denies abdominal pain or tenderness, he feels nausea and wants something to help him, currently on Zofran also we will add in TSH Protonix. Patient denies chest pain or dyspnea. No urinary complaints. No other new complaints / Patient left foot pain is controlled, dressing in place, culture is growing pres umptive staph, patient kept on IV vancomycin and cefepime and Flagyl as per ID team. Bone scan requested for tomorrow Also he was complaining from stomach upset, he denies stomach pain or abdominal pain, he denies chest pain or dyspnea. He states that his upset is because of the pills most likely referring to his Flagyl pills which is switched to IV Zosyn. Because of poor eating today due to stomach upset he became hypoglycemic, he received juice and D50 injection and his sugar improved. Patient is continued on hemodialysis as per nephrology team 07/03--patient was seen and examined today. Stable. WBCs 14.2, hemoglobin 9.3, platelets normal. ESR 77, CRP 15.7. Bone scan concerning for possible osteomyelitis of first digit near MTP joint. Infectious disease following, currently on Unasyn per ID. 07/04--patient was seen and examined today. Vital stable, remained afebrile. BMP today showed sodium 136, potassium 5.4, chloride 97, BUN 66, creatinine 5.7. Nephrology following, patient undergoing hemodialysis today. Currently on Unasyn, infectious disease following. Plan for IV cefazolin on discharge. 07/05--patient was seen and examined today. Patient spiked a fever of 102.8 ov ernight. WBC count was trending up. Discussed with infectious disease, recommended to continue Unasyn and monitor overnight for resolution of fever and make sure WBC count is trending down prior to discharge. Patient was afebrile this morning, heart rate 78, respiratory 16, blood pressure 149/65, saturating 99% on room air. Assessment and plan: 1. Infected diabetic left foot ulcer/osteomyelitis -- Patient has been placed on IV cefepime and vancomycin and iv. Flagyl; blood cultures and wound cultures are obtained -- Vascular surgery and ID consulted ---Status post debridement of wound and deep culturesgrowing MSSA and Finegoldia magna -- Follow-up wound culture. Pending results growing staph --Was on vancomycin cefepime and Flagyl switched to Unasyn now.>>> --Bone scan --- cellulitis of left foot with possible osteomyelitis of first digit near the MTP joint. 2. Leukocytosis/sepsis; related to infected foot ulcer; wound cultures and blood cultures are obtained; monitor CBC, CRP and procalcitonin 3. Hyperglycemia without acidosis; diabetes mellitus with long-term insulin use; patient takes insulin 70/30 68 units twice daily; monitor Accu-Cheks before every meal and at bedtime with insulin sliding scale -- Had episode of hypoglycemia on 07/02 because of stomach upset, currently improved 4. Hypertension; currently on Coreg 12.5 mg twice daily, hydralazine 100 mg 3 times daily, clonidine 0.1 mg twice daily and losartan 25 mg daily 6. Hyperlipidemia; Lipitor 80 mg p.o. nightly 6. COPD, not in exacerbation; continue with home inhaler therapy 7. Depression; Zoloft 50 mg daily 8. End-stage renal disease/HD; patient maintains a schedule of Monday, and Monday; nephrology is consulted. IV Lasix 80 mg twice daily. Nephrology team DVT prophylaxis: Monitor vital signs and labs Labs and medication were reviewed. Continue same treatment. Further recommendations as per clinical course of the patient PHYSICAL EXAMINATION: GENERAL: The patient is A&O x3, NAD HEENT: EOMI, Sclerae anicteric, Moist Mucous membranes Neck: Supple, Non tender, No JVD PULMONARY: Equal breath souds B/L, No wheezing, No crackles. CARDIOVASCULAR: S1, S2 present. No murmurs, rubs, or gallops. ABDOMEN: Soft, nontender, nondistended, normoactive bowel sounds. No guarding or rebound tenderness. MUSCULOSKELETAL: No edema, No cyanosis. No clubbing. Normal ROM. Intact peripheral pulses. Left foot dressing intact. NEUROLOGICAL: CN 2-12 grossly intact. No FND Skin: No Rash REVIEW OF SYSTEMS: CONSTITUTIONAL: No fever or chills. CARDIOVASCULAR: No chest pain, palpitations or syncope. PULMONARY: No shortness of breath, no cough, sore throat. GASTROINTESTINAL: No nausea, vomiting, diarrhea, abdominal pain. : No Dysuria, urgency, frequency. Extremities: No edema. NEUROLOGICAL: No headaches, no weakness, or numbness Dictation was produced using [employer] dictation software. please excuse any grammatical, word or spelling errors. Objective - Vital Signs Vital signs: Vital Signs Temp 98.1 F 07/05/24 08:00 Pulse 78 07/05/24 08:00 Resp 16 07/05/24 08:00 BP 149/65 07/05/24 08:00 Pulse Ox 99 07/05/24 08:00 FiO2 Intake & Output 07/04/24 07/05/24 07/05/24 18:59 06:59 18:59 Intake Total 4440 240 Output Total 2900 450 150 Balance 1540 -450 90 Weight 94.3 kg Intake: Oral 2040 240 Hemodialysis 2400 Output: Urine 500 450 150 Hemodialysis 400 Hemodialysis Net Amount 2000 Other: Voiding Method Urinal # Voids 2 1 - Labs CBC & Chem 7: 07/04/24 06:50 07/04/24 06:50 Labs: Abnormal Lab Results - Last 24 Hours (Table) 07/04/24 07/04/24 07/04/24 Range/Units 06:50 17:07 19:14 WBC 15.38 H (4.50-10.00) X 10*3/uL RBC 2.97 L (4.40-5.60) X 10*6/uL Hgb 9.1 L (13.0-17.0) g/dL Hct 29.8 L (39.6-50.0) % MCV 100.3 H (80.0-97.0) FL MCHC 30.5 L (32.0-37.0) g/dL Immature Gran # 0.18 H (0.00-0.04) X 10*3/uL Neutrophils # 12.36 H (1.80-7.70) X 10*3/uL Lymphocytes # 0.87 L (0.90-5.00) X 10*3/uL Monocytes # 1.44 H (0.20-1.00) X 10*3/uL Eosinophils # 0.43 H (0.04-0.35) X 10*3/uL POC Glucose (mg/dL) 226 H 237 H (70-110) mg/dL 07/05/24 07/05/24 07/05/24 Range/Units 02:22 06:58 12:11 WBC (4.50-10.00) X 10*3/uL RBC (4.40-5.60) X 10*6/uL Hgb (13.0-17.0) g/dL Hct (39.6-50.0) % MCV (80.0-97.0) FL MCHC (32.0-37.0) g/dL Immature Gran # (0.00-0.04) X 10*3/uL Neutrophils # (1.80-7.70) X 10*3/uL Lymphocytes # (0.90-5.00) X 10*3/uL Monocytes # (0.20-1.00) X 10*3/uL Eosinophils # (0.04-0.35) X 10*3/uL POC Glucose (mg/dL) 155 H 175 H 210 H (70-110) mg/dL
[2024-07-05 14:05] VITALS: BMI 29.8
--- NOTE | 2024-07-05 15:27 | P.PN ---
Progress Note - Text 68-year-old diabetic male patient history of chronic renal failure on dialysis. Patient had infected callus on the first metatarsal phalangeal joint on the plantar aspect we excised the callus we will treating with local wound care. Has a third toe with dry gangrene no sign of infection noted we will changing dressing daily Silver rope patient in no fever or chills patient is on IV antibiotic under care of infectious disease patient is having dialysis through the fistula eventually we will remove the right jugular catheter
[2024-07-05 17:24] LABS: Glucose,Whole Blood 154 mg/dL (70-110)
[2024-07-05] MEDS: CALCIUM ACETATE 667 MG TAB PO SCH (17:48)
--- NOTE | 2024-07-05 18:59 | P.PN ---
Subjective Patient is seen for follow-up for end-stage renal disease. Maintained on hemodialysis on Saturdays No complaints of shortness of breath. Scheduled for hemodialysis in a.m. Objective - Vital Signs Vital signs: Vital Signs Temp 97.7 F 07/05/24 13:45 Pulse 79 07/05/24 13:45 Resp 18 07/05/24 13:45 BP 168/63 07/05/24 13:45 Pulse Ox 99 07/05/24 13:45 FiO2 Intake & Output 07/04/24 07/05/24 07/05/24 18:59 06:59 18:59 Intake Total 4440 820 Output Total 2900 450 550 Balance 1540 -450 270 Weight 94.3 kg 94.3 kg Intake: Oral 2040 820 Hemodialysis 2400 Output: Urine 500 450 550 Hemodialysis 400 Hemodialysis Net Amount 2000 Other: Voiding Method Urinal Urinal # Voids 2 1 - Exam Patient is awake, comfortable, no acute distress. Examination of the heart S1 and S2 Examination of the lungs bilateral breath sounds are heard Lower extremities shows no significant edema left foot is wrapped. 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 End-stage renal disease on hemodialysis on Monday schedule 2. Left foot infection with chronic wound status post debridement and maintained on antibiotics 3. CKD mineral bone disorder 4. Volume overload Plan: Hemodialysis in a.m. Use left arm AV graft Remove IJ permacath this admission.
[2024-07-05 20:16] LABS: Glucose,Whole Blood 279 mg/dL (70-110)
[2024-07-06 01:33] LABS: Glucose,Whole Blood 196 mg/dL (70-110)
[2024-07-06 07:20] LABS: Glucose,Whole Blood 175 mg/dL (70-110)
[2024-07-06 07:36] LABS: Basophils # (A) 0.1 k/uL (0-0.2); Basophils % (A) 1 %; Eosinophils # (A) 0.5 k/uL (0-0.7); Eosinophils % (A) 3 %; HCT 30.2 % (39.0-53.0); HGB 9.8 gm/dL (13.0-17.5); Lymphocytes # (A) 0.7 k/uL (1.0-4.8); Lymphocytes % (A) 5 %; MCH 31.7 pg (25.0-35.0); MCHC 32.4 g/dL (31.0-37.0); MCV 97.7 fL (80.0-100.0); Mean Platelet Volume 6.9; Monocytes # (A) 0.7 k/uL (0-1.0); Monocytes % (A) 5 %; Neutrophils # (A) 11.7 k/uL (1.3-7.7); Neutrophils % (A) 85 %; Platelet Count 315 k/uL (150-450); RBC 3.09 m/uL (4.30-5.90); WBC 13.8 k/uL (3.8-10.6)
[2024-07-06 08:10] LABS: Carbon Dioxide 24 mmol/L (22-30); Chloride 94 mmol/L (98-107); Glucose 142 mg/dL (74-99); Potassium 5.4 mmol/L (3.5-5.1); Sodium 132 mmol/L (137-145)
[2024-07-06 08:11] LABS: African American GFR (CKD) 11 (>60 ml/min/1.73 sqM); Anion Gap 14 mmol/L; Blood Urea Nitrogen 56 mg/dL (9-20); Calcium 7.2 mg/dL (8.4-10.2); Non-African American GFR(CKD) 10 (>60 ml/min/1.73 sqM)
--- NOTE | 2024-07-06 08:19 | P.PN ---
Subjective Patient is seen in follow-up for end-stage renal disease. Scheduled for dialysis today. Resting in bed. No active complaints. Vital signs are stable. General: No acute distress. HEENT: Head exam is unremarkable. LUNGS: No audible rhonchi or wheezes. HEART: Rate and Rhythm are regular. ABDOMEN: Nontender. EXTREMITITES: Left foot wrapped. No edema. Objective - Vital Signs Vital signs: Vital Signs Temp 98.1 F 07/06/24 07:16 Pulse 71 07/06/24 07:16 Resp 18 07/06/24 07:16 BP 165/70 07/06/24 07:16 Pulse Ox 98 07/06/24 07:16 FiO2 Intake & Output 07/05/24 07/06/24 07/06/24 18:59 06:59 18:59 Intake Total 820 Output Total 550 500 Balance 270 -500 Weight 94.3 kg 94.8 kg Intake: Oral 820 Output: Urine 550 500 Other: Voiding Method Urinal # Voids 1 - Labs CBC & Chem 7: 07/06/24 07:05 07/06/24 07:05 Labs: Abnormal Lab Results - Last 24 Hours (Table) 07/05/24 07/05/24 07/05/24 Range/Units 12:11 17:17 20:13 WBC (3.8-10.6) k/uL RBC (4.30-5.90) m/uL Hgb (13.0-17.5) gm/dL Hct (39.0-53.0) % Neutrophils # (1.3-7.7) k/uL Lymphocytes # (1.0-4.8) k/uL Sodium (137-145) mmol/L Potassium (3.5-5.1) mmol/L Chloride (98-107) mmol/L BUN (9-20) mg/dL Creatinine (0.66-1.25) mg/dL Glucose (74-99) mg/dL POC Glucose (mg/dL) 210 H 154 H 279 H (70-110) mg/dL Calcium (8.4-10.2) mg/dL 07/06/24 07/06/24 07/06/24 Range/Units 01:23 07:05 07:05 WBC 13.8 H (3.8-10.6) k/uL RBC 3.09 L (4.30-5.90) m/uL Hgb 9.8 L (13.0-17.5) gm/dL Hct 30.2 L (39.0-53.0) % Neutrophils # 11.7 H (1.3-7.7) k/uL Lymphocytes # 0.7 L (1.0-4.8) k/uL Sodium 132 L (137-145) mmol/L Potassium 5.4 H (3.5-5.1) mmol/L Chloride 94 L (98-107) mmol/L BUN 56 H (9-20) mg/dL Creatinine 5.55 H (0.66-1.25) mg/dL Glucose 142 H (74-99) mg/dL POC Glucose (mg/dL) 196 H (70-110) mg/dL Calcium 7.2 L (8.4-10.2) mg/dL 07/06/24 Range/Units 07:18 WBC (3.8-10.6) k/uL RBC (4.30-5.90) m/uL Hgb (13.0-17.5) gm/dL Hct (39.0-53.0) % Neutrophils # (1.3-7.7) k/uL Lymphocytes # (1.0-4.8) k/uL Sodium (137-145) mmol/L Potassium (3.5-5.1) mmol/L Chloride (98-107) mmol/L BUN (9-20) mg/dL Creatinine (0.66-1.25) mg/dL Glucose (74-99) mg/dL POC Glucose (mg/dL) 175 H (70-110) mg/dL Calcium (8.4-10.2) mg/dL Microbiology - Last 24 Hours (Table) 06/30/24 14:00 Blood Culture - Final Blood Assessment and Plan Plan: Assessment: 1. End-stage renal disease maintained on hemodialysis on Monday schedule. 2. Hypertension with chronic kidney disease. 3. Left foot infected callus status post excision. Being followed by infectious disease and vascular surgery. 4. Chronic kidney disease mineral bone disease maintained on PhosLo. 5. Volume overload. Improved with ultrafiltration. Plan: Hemodialysis today. If no issues with dialysis using the AV graft, then permacath will be removed.
--- NOTE | 2024-07-06 09:29 | P.PN ---
Progress Note - Text 68-year-old gentleman history of chronic renal failure patient came with infected callus right foot plantar aspect we excised the callus today with local wound care using silver alginate as patient is an IV antibiotic under care of infectious disease patient has a left foot third toe dry gangrene we will watch and at this point patient has a dialysis catheter placed on the right side having dialysis through the AV fistula left arm we will remove the dialysis catheter on Monday dressing should be changed every 48 hour next dressing will be changed on Monday
[2024-07-06 12:22] LABS: Glucose,Whole Blood 115 mg/dL (70-110)
--- NOTE | 2024-07-06 13:48 | P.PN ---
Subjective Progress Note Date: 07/06/24 68-year-old male who presents to the emergency department for left foot pain. Patient has been dealing with diabetic ulcers for many years. States that he followed up with Dr. Walter yesterday and had some sort of procedure done and since then he has had increasing pain. States that he is unable to ambulate due to the pain. Foot is currently bandaged with some active drainage. Foot is very malodorous. Denies any fevers or chills. Not currently on antibiotics. A couple of his smaller toes appear black. Patient is unsure how long they have been black. Blood work completed in ED reveals a WBC of 20.9, hemoglobin of 10.1 and platelet count of 285, sodium 130, potassium 4.7, BUN/creatinine of 92/6.59, blood glucose of 308 X-ray of the foot reveals osteoarthritic changes without any osseous erosions or evidence of osteomyelitis 2/ Patient is a pleasant 68 years old male who presents with left foot infection s/p debridement of the callus at the plantar surface of the left foot with cell ulitis extending into the big toe. Wound cultures pending, currently covered with cefepime, IV vancomycin and p.o. Flagyl. Pain at the foot is controlled but patient has been complaining from stomach upset, he denies abdominal pain or tenderness, he feels nausea and wants something to help him, currently on Zofran also we will add in TSH Protonix. Patient denies chest pain or dyspnea. No urinary complaints. No other new complaints / Patient left foot pain is controlled, dressing in place, culture is growing presumptive staph, patient kept on IV vancomycin and cefepime and Flagyl as per ID team. Bone scan requested for tomorrow Also he was complaining from stomach upset, he denies stomach pain or abdominal pain, he denies chest pain or dyspnea. He states that his upset is because of the pills most likely referring to his Flagyl pills which is switched to IV Zosyn. Because of poor eating today due to stomach upset he became hypoglycemic, he received juice and D50 injection and his sugar improved. Patient is continued on hemodialysis as per nephrology team 07/03--patient was seen and examined today. Stable. WBCs 14.2, hemoglobin 9.3, platelets normal. ESR 77, CRP 15.7. Bone scan concerning for possible osteomyelitis of first digit near MTP joint. Infectious disease following, currently on Unasyn per ID. 07/04--patient was seen and examined today. Vital stable, remained afebrile. BMP today showed sodium 136, potassium 5.4, chloride 97, BUN 66, creatinine 5.7. Nephrology following, patient undergoing hemodialysis today. Currently on Unasyn, infectious disease following. Plan for IV cefazolin on discharge. 07/05--patient was seen and examined today. Patient spiked a fever of 102.8 overnight. WBC count was trending up. Discussed with infectious disease, re commended to continue Unasyn and monitor overnight for resolution of fever and make sure WBC count is trending down prior to discharge. Patient was afebrile this morning, heart rate 78, respiratory 16, blood pressure 149/65, saturating 99% on room air. 07/06. Patient seen and examined. Still left foot pain has improved. Currently undergoing dialysis. REVIEW OF SYSTEMS: CONSTITUTIONAL: No fever, no malaise,. CARDIOVASCULAR: No chest pain, no palpitations, no syncope. PULMONARY: No shortness of breath, no cough, GASTROINTESTINAL: No diarrhea, no nausea, no vomiting, no abdominal pain. NEUROLOGICAL: No headaches, no weakness, PHYSICAL EXAMINATION: GENERAL: The patient is alert and oriented x3, not in any acute distress. Well developed, well nourished. HEENT: Pupils are round and equally reacting to light. EOMI. No scleral icterus. No conjunctival pallor. Normocephalic, atraumatic. No pharyngeal erythema. No thyromegaly. CARDIOVASCULAR: S1 and S2 present. No murmurs, rubs, or gallops. PULMONARY: Chest is clear to auscultation, no wheezing or crackles. ABDOMEN: Soft, nontender, nondistended, normoactive bowel sounds. No palpable organomegaly. MUSCULOSKELETAL: No joint swelling or deformity. Left foot dressing seen EXTREMITIES: No cyanosis, clubbing, or pedal edema. NEUROLOGICAL: Gross neurological examination did not reveal any focal deficits. SKIN: No rashes. Assessment and plan 1. Infected diabetic left foot ulcer/osteomyelitis -- Vascular surgery and ID consulted ---Status post debridement of wound and deep culturesgrowing MSSA and Finegoldia magna -- Follow-up wound culture. Pending results growing staph --Was on vancomycin cefepime and Flagyl switched to Unasyn now.>>> --Bone scan --- cellulitis of left foot with possible osteomyelitis of first digit near the MTP joint. 2. Leukocytosis/sepsis; related to infected foot ulcer; wound cultures and blood cultures are obtained; monitor CBC, CRP and procalcitonin 3. Hyperglycemia without acidosis; diabetes mellitus with long-term insulin use; patient takes insulin 70/30 68 units twice daily; monitor Accu-Cheks before every meal and at bedtime with insulin sliding scale -- Had episode of hypoglycemia on 07/02 because of stomach upset, currently improved 4. Hypertension; currently on Coreg 12.5 mg twice daily, hydralazine 100 mg 3 times daily, clonidine 0.1 mg twice daily and losartan 25 mg daily 6. Hyperlipidemia; Lipitor 80 mg p.o. nightly 6. COPD, not in exacerbation; continue with home inhaler therapy 7. Depression; Zoloft 50 mg daily 8. End-stage renal disease/HD; patient maintains a schedule of Monday, and Monday; nephrology is consulted. IV Lasix 80 mg twice daily. Continue dialysis per nephrology Labs and medication were reviewed.. Continue same treatment. Continue with symptomatic treatment. Resume home medication. Monitor labs and vitals. DVT and GI prophylaxis. Further recommendations as per clinical course of the patient Dictation was produced using [employer] dictation software. please excuse any grammatical, word or spelling errors. Objective - Vital Signs Vital signs: Vital Signs Temp 98.1 F 07/06/24 07:16 Pulse 71 07/06/24 07:16 Resp 18 07/06/24 07:16 BP 165/70 07/06/24 07:16 Pulse Ox 98 07/06/24 07:16 FiO2 Intake & Output 07/05/24 07/06/24 07/06/24 18:59 06:59 18:59 Intake Total 820 Output Total 550 500 Balance 270 -500 Weight 94.3 kg 94.8 kg Intake: Oral 820 Output: Urine 550 500 Other: Voiding Method Urinal # Voids 1 - Labs CBC & Chem 7: 07/06/24 07:05 07/06/24 07:05 Labs: Abnormal Lab Results - Last 24 Hours (Table) 07/05/24 07/05/24 07/05/24 Range/Units 12:11 17:17 20:13 WBC (3.8-10.6) k/uL RBC (4.30-5.90) m/uL Hgb (13.0-17.5) gm/dL Hct (39.0-53.0) % Neutrophils # (1.3-7.7) k/uL Lymphocytes # (1.0-4.8) k/uL Sodium (137-145) mmol/L Potassium (3.5-5.1) mmol/L Chloride (98-107) mmol/L BUN (9-20) mg/dL Creatinine (0.66-1.25) mg/dL Glucose (74-99) mg/dL POC Glucose (mg/dL) 210 H 154 H 279 H (70-110) mg/dL Calcium (8.4-10.2) mg/dL 07/06/24 07/06/24 07/06/24 Range/Units 01:23 07:05 07:05 WBC 13.8 H (3.8-10.6) k/uL RBC 3.09 L (4.30-5.90) m/uL Hgb 9.8 L (13.0-17.5) gm/dL Hct 30.2 L (39.0-53.0) % Neutrophils # 11.7 H (1.3-7.7) k/uL Lymphocytes # 0.7 L (1.0-4.8) k/uL Sodium 132 L (137-145) mmol/L Potassium 5.4 H (3.5-5.1) mmol/L Chloride 94 L (98-107) mmol/L BUN 56 H (9-20) mg/dL Creatinine 5.55 H (0.66-1.25) mg/dL Glucose 142 H (74-99) mg/dL POC Glucose (mg/dL) 196 H (70-110) mg/dL Calcium 7.2 L (8.4-10.2) mg/dL 07/06/24 Range/Units 07:18 WBC (3.8-10.6) k/uL RBC (4.30-5.90) m/uL Hgb (13.0-17.5) gm/dL Hct (39.0-53.0) % Neutrophils # (1.3-7.7) k/uL Lymphocytes # (1.0-4.8) k/uL Sodium (137-145) mmol/L Potassium (3.5-5.1) mmol/L Chloride (98-107) mmol/L BUN (9-20) mg/dL Creatinine (0.66-1.25) mg/dL Glucose (74-99) mg/dL POC Glucose (mg/dL) 175 H (70-110) mg/dL Calcium (8.4-10.2) mg/dL Microbiology - Last 24 Hours (Table) 06/30/24 14:00 Blood Culture - Final Blood
--- NOTE | 2024-07-06 13:59 | P.PN ---
Subjective Progress Note Date: 07/06/24 Principal diagnosis: Reason for follow-up is left diabetic foot infection concerning for possible osteo- Patient is a 68-year-old male with a past medical history significant for COPD, Diabetes Mellitus, Eye Disorder, Hyperlipidemia, Hypertension, Myocardial Infarction (NH), Osteoarthritis (OA), Renal Disease, Sleep Apnea/CPAP/BIPAP, presenting to the hospital for evaluation of left foot pain. Patient did have Diabetic foot ulcer status post surgical debridement. On today's evaluation that is 07/06/2024, patient did not have any fever and denies any chills, patient is breathing comfortably on room air, patient with no chest pain or cough patient did not have any abdominal pain nausea vomiting or any loose stools. Patient white count is down to 13.8 creatinine is 5.55 blood culture negative Objective - Vital Signs Vital signs: Vital Signs Temp 98.1 F 07/06/24 07:16 Pulse 71 07/06/24 07:16 Resp 18 07/06/24 07:16 BP 165/70 07/06/24 07:16 Pulse Ox 98 07/06/24 07:16 FiO2 Intake & Output 07/05/24 07/06/24 07/06/24 18:59 06:59 18:59 Intake Total 820 480 Output Total 550 500 Balance 270 -500 480 Weight 94.3 kg 94.8 kg Intake: Oral 820 480 Output: Urine 550 500 Other: Voiding Method Urinal # Voids 1 - Exam GENERAL DESCRIPTION: An elderly male lying in bed in no distress RESPIRATORY SYSTEM: Unlabored breathing , decreased breath sounds at bases HEART: S1 S2 regular rate and rhythm , ABDOMEN: Soft , no tenderness EXTREMITIES: Left foot wound is currently dressed - Labs CBC & Chem 7: 07/06/24 07:05 07/06/24 07:05 Labs: Abnormal Lab Results - Last 24 Hours (Table) 07/05/24 07/05/24 07/05/24 Range/Units 12:11 17:17 20:13 WBC (3.8-10.6) k/uL RBC (4.30-5.90) m/uL Hgb (13.0-17.5) gm/dL Hct (39.0-53.0) % Neutrophils # (1.3-7.7) k/uL Lymphocytes # (1.0-4.8) k/uL Sodium (137-145) mmol/L Potassium (3.5-5.1) mmol/L Chloride (98-107) mmol/L BUN (9-20) mg/dL Creatinine (0.66-1.25) mg/dL Glucose (74-99) mg/dL POC Glucose (mg/dL) 210 H 154 H 279 H (70-110) mg/dL Calcium (8.4-10.2) mg/dL 07/06/24 07/06/24 07/06/24 Range/Units 01:23 07:05 07:05 WBC 13.8 H (3.8-10.6) k/uL RBC 3.09 L (4.30-5.90) m/uL Hgb 9.8 L (13.0-17.5) gm/dL Hct 30.2 L (39.0-53.0) % Neutrophils # 11.7 H (1.3-7.7) k/uL Lymphocytes # 0.7 L (1.0-4.8) k/uL Sodium 132 L (137-145) mmol/L Potassium 5.4 H (3.5-5.1) mmol/L Chloride 94 L (98-107) mmol/L BUN 56 H (9-20) mg/dL Creatinine 5.55 H (0.66-1.25) mg/dL Glucose 142 H (74-99) mg/dL POC Glucose (mg/dL) 196 H (70-110) mg/dL Calcium 7.2 L (8.4-10.2) mg/dL 07/06/24 Range/Units 07:18 WBC (3.8-10.6) k/uL RBC (4.30-5.90) m/uL Hgb (13.0-17.5) gm/dL Hct (39.0-53.0) % Neutrophils # (1.3-7.7) k/uL Lymphocytes # (1.0-4.8) k/uL Sodium (137-145) mmol/L Potassium (3.5-5.1) mmol/L Chloride (98-107) mmol/L BUN (9-20) mg/dL Creatinine (0.66-1.25) mg/dL Glucose (74-99) mg/dL POC Glucose (mg/dL) 175 H (70-110) mg/dL Calcium (8.4-10.2) mg/dL Microbiology - Last 24 Hours (Table) 06/30/24 14:00 Blood Culture - Final Blood Assessment and Plan (1) Diabetic foot ulcers Current Visit: Yes Status: Acute Code(s): E11.621 - TYPE 2 DIABETES MELLITUS WITH FOOT ULCER; L97.509 - NON-PRESSURE CHRONIC ULCER OTH PRT UNSP FOOT W UNSP SEVERITY SNOMED Code(s): 054937756 (2) Left foot infection Current Visit: Yes Status: Acute Code(s): L08.9 - LOCAL INFECTION OF THE SKIN AND SUBCUTANEOUS TISSUE, UNSP SNOMED Code(s): 059669917 (3) Leukocytosis Current Visit: Yes Status: Acute Code(s): D72.829 - ELEVATED WHITE BLOOD CELL COUNT, UNSPECIFIED SNOMED Code(s): 298477670 Plan: 1patient with extensive diabetic foot ulcer/infection especially at the base of the first metatarsal with associated swelling redness concerning for a deep gravity of infection and possible early osteomyelitis will need to cover for the polymicrobial elena associated with diabetic foot infection. 2patient with left third toe dry gangrene. 3-significant leukocytosis likely due to diabetic foot infection which was trending down as of yesterday slightly up yesterday labs pending from this morning 4patient is status post debridement of the wound and deep culture results are currently growing MSSA and Finegoldia magna bone scan is suggestive of osteomyelitis 5patient white count is trending down no further fever has been noticed treated with Unasyn with outpatient plan for cefazolin through dialysis and oral Flagyl Dictation was produced using [employer] dictation software. please excuse any grammatical, word or spelling errors. Time with Patient: Less than 30
[2024-07-06 17:21] LABS: Glucose,Whole Blood 184 mg/dL (70-110)
[2024-07-06 20:16] LABS: Glucose,Whole Blood 195 mg/dL (70-110)
[2024-07-07 01:24] LABS: Glucose,Whole Blood 81 mg/dL (70-110)
[2024-07-07 07:32] LABS: Glucose,Whole Blood 161 mg/dL (70-110)
[2024-07-07 08:33] LABS: ALT 46 U/L (4-49); AST 33 U/L (17-59); African American GFR (CKD) 16 (>60 ml/min/1.73 sqM); Albumin 2.8 g/dL (3.5-5.0); Albumin/Globulin Ratio 0.8; Alkaline Phosphatase 94 U/L (38-126); Anion Gap 9 mmol/L; Blood Urea Nitrogen 37 mg/dL (9-20); Calcium 7.4 mg/dL (8.4-10.2); Carbon Dioxide 30 mmol/L (22-30); Chloride 95 mmol/L (98-107); Globulin 3.3 g/dL; Glucose 129 mg/dL (74-99); Non-African American GFR(CKD) 14 (>60 ml/min/1.73 sqM); Potassium 4.7 mmol/L (3.5-5.1); Sodium 134 mmol/L (137-145); Total Bilirubin 0.6 mg/dL (0.2-1.3); Total Protein 6.1 g/dL (6.3-8.2)
[2024-07-07 08:36] LABS: Basophils # (A) 0.1 k/uL (0-0.2); Basophils % (A) 0 %; Eosinophils # (A) 0.3 k/uL (0-0.7); Eosinophils % (A) 3 %; HCT 27.9 % (39.0-53.0); HGB 8.9 gm/dL (13.0-17.5); Lymphocytes # (A) 0.9 k/uL (1.0-4.8); Lymphocytes % (A) 8 %; MCH 30.7 pg (25.0-35.0); MCHC 32.1 g/dL (31.0-37.0); MCV 95.8 fL (80.0-100.0); Mean Platelet Volume 7.9; Monocytes # (A) 0.8 k/uL (0-1.0); Monocytes % (A) 6 %; Neutrophils % (A) 82 %; Platelet Count 364 k/uL (150-450); RBC 2.91 m/uL (4.30-5.90); RDW 13.4 % (11.5-15.5); WBC 12.2 k/uL (3.8-10.6)
--- NOTE | 2024-07-07 10:00 | P.PN ---
Subjective Patient is seen in follow-up for end-stage renal disease. No problems with dialysis yesterday. Resting in bed. No active complaints. Vital signs are stable. General: No acute distress. HEENT: Head exam is unremarkable. LUNGS: No audible rhonchi or wheezes. HEART: Rate and Rhythm are regular. ABDOMEN: Nontender. EXTREMITITES: Left foot wrapped. No edema. Objective - Vital Signs Vital signs: Vital Signs Temp 98.4 F 07/07/24 07:18 Pulse 64 07/07/24 07:18 Resp 17 07/07/24 07:18 BP 166/76 07/07/24 07:18 Pulse Ox 97 07/07/24 07:18 FiO2 Intake & Output 07/06/24 07/07/24 07/07/24 18:59 06:59 18:59 Intake Total 1460 Output Total 4300 400 500 Balance -2840 -400 -500 Weight 95 kg Intake: Oral 960 Hemodialysis 500 Output: Urine 600 400 500 Hemodialysis 2100 Hemodialysis Net Amount 1600 Other: Voiding Method Urinal - Labs CBC & Chem 7: 07/07/24 07:35 07/07/24 07:35 Labs: Abnormal Lab Results - Last 24 Hours (Table) 07/06/24 07/06/24 07/06/24 Range/Units 12:20 17:19 20:13 WBC (3.8-10.6) k/uL RBC (4.30-5.90) m/uL Hgb (13.0-17.5) gm/dL Hct (39.0-53.0) % Neutrophils # (1.3-7.7) k/uL Lymphocytes # (1.0-4.8) k/uL Sodium (137-145) mmol/L Chloride (98-107) mmol/L BUN (9-20) mg/dL Creatinine (0.66-1.25) mg/dL Glucose (74-99) mg/dL POC Glucose (mg/dL) 115 H 184 H 195 H (70-110) mg/dL Calcium (8.4-10.2) mg/dL Total Protein (6.3-8.2) g/dL Albumin (3.5-5.0) g/dL 07/07/24 07/07/24 07/07/24 Range/Units 07:21 07:35 07:35 WBC 12.2 H (3.8-10.6) k/uL RBC 2.91 L (4.30-5.90) m/uL Hgb 8.9 L (13.0-17.5) gm/dL Hct 27.9 L (39.0-53.0) % Neutrophils # 10.0 H (1.3-7.7) k/uL Lymphocytes # 0.9 L (1.0-4.8) k/uL Sodium 134 L (137-145) mmol/L Chloride 95 L (98-107) mmol/L BUN 37 H (9-20) mg/dL Creatinine 4.09 H (0.66-1.25) mg/dL Glucose 129 H (74-99) mg/dL POC Glucose (mg/dL) 161 H (70-110) mg/dL Calcium 7.4 L (8.4-10.2) mg/dL Total Protein 6.1 L (6.3-8.2) g/dL Albumin 2.8 L (3.5-5.0) g/dL Assessment and Plan Plan: Assessment: 1. End-stage renal disease maintained on hemodialysis on Monday schedule. 2. Hypertension with chronic kidney disease. Controlled. 3. Left foot infected callus status post excision. Being followed by infectious disease and vascular surgery. 4. Chronic kidney disease mineral bone disease maintained on PhosLo. 5. Volume overload. Improved with ultrafiltration. Plan: Hemodialysis Monday. No problems with AV graft yesterday. Will DC permacath.
[2024-07-07 12:21] LABS: Glucose,Whole Blood 78 mg/dL (70-110)
[2024-07-07] MEDS ORDERED: DEXTROSE 50% SYRINGE 50 ML IVP PRN ×2 (14:30)
--- NOTE | 2024-07-07 14:31 | P.PN ---
Subjective Progress Note Date: 07/07/24 68-year-old male who presents to the emergency department for left foot pain. Patient has been dealing with diabetic ulcers for many years. States that he followed up with Dr. Walter yesterday and had some sort of procedure done and since then he has had increasing pain. States that he is unable to ambulate due to the pain. Foot is currently bandaged with some active drainage. Foot is very malodorous. Denies any fevers or chills. Not currently on antibiotics. A couple of his smaller toes appear black. Patient is unsure how long they have been black. Blood work completed in ED reveals a WBC of 20.9, hemoglobin of 10.1 and platelet count of 285, sodium 130, potassium 4.7, BUN/creatinine of 92/6.59, blood glucose of 308 X-ray of the foot reveals osteoarthritic changes without any osseous erosions or evidence of osteomyelitis 2/ Patient is a pleasant 68 years old male who presents with left foot infection s/p debridement of the callus at the plantar surface of the left foot with cell ulitis extending into the big toe. Wound cultures pending, currently covered with cefepime, IV vancomycin and p.o. Flagyl. Pain at the foot is controlled but patient has been complaining from stomach upset, he denies abdominal pain or tenderness, he feels nausea and wants something to help him, currently on Zofran also we will add in TSH Protonix. Patient denies chest pain or dyspnea. No urinary complaints. No other new complaints / Patient left foot pain is controlled, dressing in place, culture is growing presumptive staph, patient kept on IV vancomycin and cefepime and Flagyl as per ID team. Bone scan requested for tomorrow Also he was complaining from stomach upset, he denies stomach pain or abdominal pain, he denies chest pain or dyspnea. He states that his upset is because of the pills most likely referring to his Flagyl pills which is switched to IV Zosyn. Because of poor eating today due to stomach upset he became hypoglycemic, he received juice and D50 injection and his sugar improved. Patient is continued on hemodialysis as per nephrology team 07/03--patient was seen and examined today. Stable. WBCs 14.2, hemoglobin 9.3, platelets normal. ESR 77, CRP 15.7. Bone scan concerning for possible osteomyelitis of first digit near MTP joint. Infectious disease following, currently on Unasyn per ID. 07/04--patient was seen and examined today. Vital stable, remained afebrile. BMP today showed sodium 136, potassium 5.4, chloride 97, BUN 66, creatinine 5.7. Nephrology following, patient undergoing hemodialysis today. Currently on Unasyn, infectious disease following. Plan for IV cefazolin on discharge. 07/05--patient was seen and examined today. Patient spiked a fever of 102.8 overnight. WBC count was trending up. Discussed with infectious disease, re commended to continue Unasyn and monitor overnight for resolution of fever and make sure WBC count is trending down prior to discharge. Patient was afebrile this morning, heart rate 78, respiratory 16, blood pressure 149/65, saturating 99% on room air. 07/06. Patient seen and examined. Still left foot pain has improved. Currently undergoing dialysis. 07/07. Patient seen examined. Patient had been having episodes of low blood sugar levels, insulin NovoLog 70/30 decreased to 20 units twice a day. REVIEW OF SYSTEMS: CONSTITUTIONAL: No fever, no malaise,. CARDIOVASCULAR: No chest pain, no palpitations, no syncope. PULMONARY: No shortness of breath, no cough, GASTROINTESTINAL: No diarrhea, no nausea, no vomiting, no abdominal pain. NEUROLOGICAL: No headaches, no weakness, PHYSICAL EXAMINATION: GENERAL: The patient is alert and oriented x3, not in any acute distress. Well developed, well nourished. HEENT: Pupils are round and equally reacting to light. EOMI. No scleral icterus. No conjunctival pallor. Normocephalic, atraumatic. No pharyngeal erythema. No thyromegaly. CARDIOVASCULAR: S1 and S2 present. No murmurs, rubs, or gallops. PULMONARY: Chest is clear to auscultation, no wheezing or crackles. ABDOMEN: Soft, nontender, nondistended, normoactive bowel sounds. No palpable organomegaly. MUSCULOSKELETAL: No joint swelling or deformity. Left foot dressing seen EXTREMITIES: No cyanosis, clubbing, or pedal edema. NEUROLOGICAL: Gross neurological examination did not reveal any focal deficits. SKIN: No rashes. Assessment and plan 1. Infected diabetic left foot ulcer/osteomyelitis -- Vascular surgery and ID consulted ---Status post debridement of wound and deep culturesgrowing MSSA and Finegoldia magna -- Follow-up wound culture. Pending results growing staph --Was on vancomycin cefepime and Flagyl switched to Unasyn now.>>> --Bone scan --- cellulitis of left foot with possible osteomyelitis of first digit near the MTP joint. 2. Leukocytosis/sepsis; related to infected foot ulcer; wound cultures and blood cultures are obtained; monitor CBC, CRP and procalcitonin 3. Hyperglycemia without acidosis; diabetes mellitus with long-term insulin use; Monitor blood sugar levels, decrease insulin 7030 to 25 units twice a day, start sliding scale insulin 4. Hypertension; currently on Coreg 12.5 mg twice daily, hydralazine 100 mg 3 times daily, clonidine 0.1 mg twice daily and losartan 25 mg daily 6. Hyperlipidemia; Lipitor 80 mg p.o. nightly 6. COPD, not in exacerbation; continue with home inhaler therapy 7. Depression; Zoloft 50 mg daily 8. End-stage renal disease/HD; patient maintains a schedule of Monday, and Monday; nephrology is consulted. IV Lasix 80 mg twice daily. Continue dialysis per nephrology Labs and medication were reviewed.. Continue same treatment. Continue with symptomatic treatment. Resume home medication. Monitor labs and vitals. DVT and GI prophylaxis. Further recommendations as per clinical course of the patient Dictation was produced using [employer] dictation software. please excuse any grammatical, word or spelling errors. Objective - Vital Signs Vital signs: Vital Signs Temp 98.5 F 07/07/24 13:15 Pulse 67 07/07/24 13:15 Resp 18 07/07/24 13:15 BP 132/50 07/07/24 13:15 Pulse Ox 98 07/07/24 13:15 FiO2 Intake & Output 07/06/24 07/07/24 07/07/24 18:59 06:59 18:59 Intake Total 1460 Output Total 4300 400 1000 Balance -2840 -400 -1000 Weight 95 kg Intake: Oral 960 Hemodialysis 500 Output: Urine 555 884 6277 Hemodialysis 2100 Hemodialysis Net Amount 1600 Other: Voiding Method Urinal Urinal - Labs CBC & Chem 7: 07/07/24 07:35 07/07/24 07:35 Labs: Abnormal Lab Results - Last 24 Hours (Table) 07/06/24 07/06/24 07/07/24 Range/Units 17:19 20:13 07:21 WBC (3.8-10.6) k/uL RBC (4.30-5.90) m/uL Hgb (13.0-17.5) gm/dL Hct (39.0-53.0) % Neutrophils # (1.3-7.7) k/uL Lymphocytes # (1.0-4.8) k/uL Sodium (137-145) mmol/L Chloride (98-107) mmol/L BUN (9-20) mg/dL Creatinine (0.66-1.25) mg/dL Glucose (74-99) mg/dL POC Glucose (mg/dL) 184 H 195 H 161 H (70-110) mg/dL Calcium (8.4-10.2) mg/dL Total Protein (6.3-8.2) g/dL Albumin (3.5-5.0) g/dL 07/07/24 07/07/24 Range/Units 07:35 07:35 WBC 12.2 H (3.8-10.6) k/uL RBC 2.91 L (4.30-5.90) m/uL Hgb 8.9 L (13.0-17.5) gm/dL Hct 27.9 L (39.0-53.0) % Neutrophils # 10.0 H (1.3-7.7) k/uL Lymphocytes # 0.9 L (1.0-4.8) k/uL Sodium 134 L (137-145) mmol/L Chloride 95 L (98-107) mmol/L BUN 37 H (9-20) mg/dL Creatinine 4.09 H (0.66-1.25) mg/dL Glucose 129 H (74-99) mg/dL POC Glucose (mg/dL) (70-110) mg/dL Calcium 7.4 L (8.4-10.2) mg/dL Total Protein 6.1 L (6.3-8.2) g/dL Albumin 2.8 L (3.5-5.0) g/dL
--- NOTE | 2024-07-07 14:42 | P.PN ---
Subjective Progress Note Date: 07/07/24 Principal diagnosis: Reason for follow-up is left diabetic foot infection concerning for possible osteo- Patient is a 68-year-old male with a past medical history significant for COPD, Diabetes Mellitus, Eye Disorder, Hyperlipidemia, Hypertension, Myocardial Infarction (HI), Osteoarthritis (OA), Renal Disease, Sleep Apnea/CPAP/BIPAP, presenting to the hospital for evaluation of left foot pain. Patient did have Diabetic foot ulcer status post surgical debridement. On today's evaluation that is 07/07/2024, Patient is afebrile patient is currently on room air and denies having any shortness of breath, the patient denies any chest pain or cough, the patient denies any nausea vomiting did not have any abdominal pain and no diarrhea pain to the left foot is currently controlled. Patient white count is down to 12.2, creatinine 4.09 Objective - Vital Signs Vital signs: Vital Signs Temp 98.5 F 07/07/24 13:15 Pulse 67 07/07/24 13:15 Resp 18 07/07/24 13:15 BP 132/50 07/07/24 13:15 Pulse Ox 98 07/07/24 13:15 FiO2 Intake & Output 07/06/24 07/07/24 07/07/24 18:59 06:59 18:59 Intake Total 1460 Output Total 4300 400 1000 Balance -2840 -400 -1000 Weight 95 kg Intake: Oral 960 Hemodialysis 500 Output: Urine 461 755 6820 Hemodialysis 2100 Hemodialysis Net Amount 1600 Other: Voiding Method Urinal Urinal - Exam GENERAL DESCRIPTION: An elderly male lying in bed in no distress RESPIRATORY SYSTEM: Unlabored breathing , decreased breath sounds at bases HEART: S1 S2 regular rate and rhythm , ABDOMEN: Soft , no tenderness EXTREMITIES: Left foot wound is currently dressed - Labs CBC & Chem 7: 07/07/24 07:35 07/07/24 07:35 Labs: Abnormal Lab Results - Last 24 Hours (Table) 07/06/24 07/06/24 07/07/24 Range/Units 17:19 20:13 07:21 WBC (3.8-10.6) k/uL RBC (4.30-5.90) m/uL Hgb (13.0-17.5) gm/dL Hct (39.0-53.0) % Neutrophils # (1.3-7.7) k/uL Lymphocytes # (1.0-4.8) k/uL Sodium (137-145) mmol/L Chloride (98-107) mmol/L BUN (9-20) mg/dL Creatinine (0.66-1.25) mg/dL Glucose (74-99) mg/dL POC Glucose (mg/dL) 184 H 195 H 161 H (70-110) mg/dL Calcium (8.4-10.2) mg/dL Total Protein (6.3-8.2) g/dL Albumin (3.5-5.0) g/dL 07/07/24 07/07/24 Range/Units 07:35 07:35 WBC 12.2 H (3.8-10.6) k/uL RBC 2.91 L (4.30-5.90) m/uL Hgb 8.9 L (13.0-17.5) gm/dL Hct 27.9 L (39.0-53.0) % Neutrophils # 10.0 H (1.3-7.7) k/uL Lymphocytes # 0.9 L (1.0-4.8) k/uL Sodium 134 L (137-145) mmol/L Chloride 95 L (98-107) mmol/L BUN 37 H (9-20) mg/dL Creatinine 4.09 H (0.66-1.25) mg/dL Glucose 129 H (74-99) mg/dL POC Glucose (mg/dL) (70-110) mg/dL Calcium 7.4 L (8.4-10.2) mg/dL Total Protein 6.1 L (6.3-8.2) g/dL Albumin 2.8 L (3.5-5.0) g/dL Assessment and Plan (1) Diabetic foot ulcers Current Visit: Yes Status: Acute Code(s): E11.621 - TYPE 2 DIABETES MELLITUS WITH FOOT ULCER; L97.509 - NON-PRESSURE CHRONIC ULCER OTH PRT UNSP FOOT W UNSP SEVERITY SNOMED Code(s): 580879498 (2) Left foot infection Current Visit: Yes Status: Acute Code(s): L08.9 - LOCAL INFECTION OF THE SKIN AND SUBCUTANEOUS TISSUE, UNSP SNOMED Code(s): 277205211 (3) Leukocytosis Current Visit: Yes Status: Acute Code(s): D72.829 - ELEVATED WHITE BLOOD CELL COUNT, UNSPECIFIED SNOMED Code(s): 645754250 Plan: 1patient with extensive diabetic foot ulcer/infection especially at the base of the first metatarsal with associated swelling redness concerning for a deep gravity of infection and possible early osteomyelitis will need to cover for the polymicrobial elena associated with diabetic foot infection. 2patient with left third toe dry gangrene. 3-significant leukocytosis likely due to diabetic foot infection which was marco antonio nding down 4patient is status post debridement of the wound and deep culture results are currently growing MSSA and Finegoldia magna bone scan is suggestive of osteomyelitis 5patient currently treated with Unasyn with outpatient plan for cefazolin through dialysis and oral Flagyl prescription provided to the ed case manager on Monday Dictation was produced using [employer] dictation software. please excuse any grammatical, word or spelling errors. Time with Patient: Less than 30
[2024-07-07 17:45] LABS: Glucose,Whole Blood 109 mg/dL (70-110)
[2024-07-07] MEDS: INSULIN ASPART (NovoLOG) 100 UNIT/ML VIAL SQ SCH (17:54)
[2024-07-07] MEDS: INSULN ASP PRT/INSULIN ASPART 100 UNIT/ML 10 ML VIAL SQ SCH (18:11)
[2024-07-07 20:33] LABS: Glucose,Whole Blood 148 mg/dL (70-110)
[2024-07-07] MEDS: DOCUSATE 100 MG CAP PO SCH (23:13)
[2024-07-08 01:39] LABS: Glucose,Whole Blood 107 mg/dL (70-110)
[2024-07-08 07:32] LABS: Glucose,Whole Blood 152 mg/dL (70-110)
--- NOTE | 2024-07-08 10:10 | P.PN ---
Subjective Patient is seen in follow-up for end-stage renal disease. Resting in bed. No active complaints. Vital signs are stable. General: No acute distress. HEENT: Head exam is unremarkable. LUNGS: No audible rhonchi or wheezes. HEART: Rate and Rhythm are regular. ABDOMEN: Nontender. EXTREMITITES: Left foot wrapped. No edema. Objective - Vital Signs Vital signs: Vital Signs Temp 98.1 F 07/08/24 07:27 Pulse 60 07/08/24 07:27 Resp 16 07/08/24 07:27 BP 163/69 07/08/24 07:27 Pulse Ox 98 07/08/24 07:27 FiO2 Intake & Output 07/07/24 07/08/24 07/08/24 18:59 06:59 18:59 Intake Total 480 Output Total 1200 400 Balance -720 -400 Weight 96.3 kg Intake: Oral 480 Output: Urine 1200 400 Other: Voiding Method Urinal Urinal - Labs CBC & Chem 7: 07/07/24 07:35 07/07/24 07:35 Labs: Abnormal Lab Results - Last 24 Hours (Table) 07/07/24 07/07/24 07/08/24 Range/Units 07:05 20:31 07:31 POC Glucose (mg/dL) 148 H 152 H (70-110) mg/dL Hemoglobin A1c 7.5 H (<=6.0) % Assessment and Plan Plan: Assessment: 1. End-stage renal disease maintained on hemodialysis on Monday schedule. 2. Hypertension with chronic kidney disease. 3. Left foot infected callus status post excision. Being followed by infectious disease and vascular surgery. 4. Chronic kidney disease mineral bone disease maintained on PhosLo. 5. Volume overload. Improved with ultrafiltration. Plan: Hemodialysis Monday. No problems with AV graft yesterday. Will DC permacath. Vascular surgery notified.
[2024-07-08 12:14] LABS: Glucose,Whole Blood 144 mg/dL (70-110)
--- NOTE | 2024-07-08 13:25 | P.DS ---
Providers Date of admission: 06/30/24 14:20 Expected date of discharge: 07/08/24 Attending physician: Rafi Wayne MD Consults: 06/30/24 14:23 Consult Physician Urgent Consulting Provider: Dillan Walter Consult Reason/Comments: Diabetic ulcers, established patient Do you want consulting provider notified?: Yes Consult Physician Urgent Consulting Provider: Tima Moore Consult Reason/Comments: Left foot infection, diabetic ulcers Do you want consulting provider notified?: Yes 06/30/24 14:24 Consult Physician Urgent Consulting Provider: Gretchen Landrum Consult Reason/Comments: Dialysis patient Do you want consulting provider notified?: Yes Primary care physician: Stated None Hospital Course: Discharge diagnoses; Infected diabetic left foot ulcer/osteomyelitis -- Vascular surgery and ID consulted ---Status post debridement of wound and deep culturesgrowing MSSA and Finegoldia magna -- Follow-up wound culture. Pending results growing staph --Was on vancomycin cefepime and Flagyl switched to Unasyn now.>>> --Bone scan --- cellulitis of left foot with possible osteomyelitis of first digit near the MTP joint. 07/08. Being discharged on IV cefazolin and Flagyl per ID 2. Leukocytosis/sepsis; related to infected foot ulcer; wound cultures and blood cultures are obtained; monitor CBC, CRP and procalcitonin 3. Hyperglycemia without acidosis; diabetes mellitus with long-term insulin use; Monitor blood sugar levels, decrease insulin 7030 to 25 units twice a day, start sliding scale insulin 4. Hypertension; currently on Coreg 12.5 mg twice daily, hydralazine 100 mg 3 times daily, clonidine 0.1 mg twice daily and losartan 25 mg daily 6. Hyperlipidemia; Lipitor 80 mg p.o. nightly 6. COPD, not in exacerbation; continue with home inhaler therapy 7. Depression; Zoloft 50 mg daily 8. End-stage renal disease/HD; patient maintains a schedule of Monday, and Monday; Continue dialysis per nephrology Hospital course; 68-year-old male who presents to the emergency department for left foot pain. Patient has been dealing with diabetic ulcers for many years. States that he followed up with Dr. Walter yesterday and had some sort of procedure done and since then he has had increasing pain. States that he is unable to ambulate due to the pain. Foot is currently bandaged with some active drainage. Foot is very malodorous. Denies any fevers or chills. Not currently on antibiotics. A couple of his smaller toes appear black. Patient is unsure how long they have been black. Blood work completed in ED reveals a WBC of 20.9, hemoglobin of 10.1 and platelet count of 285, sodium 130, potassium 4.7, BUN/creatinine of 92/6.59, blood glucose of 308 X-ray of the foot reveals osteoarthritic changes without any osseous erosions or evidence of osteomyelitis 07/01 Patient is a pleasant 68 years old male who presents with left foot infection s/p debridement of the callus at the plantar surface of the left foot with cellulitis extending into the big toe. Wound cultures pending, currently covered with cefepime, IV vancomycin and p.o. Flagyl. Pain at the foot is controlled but patient has been complaining from stomach upset, he denies abdominal pain or tenderness, he feels nausea and wants something to help him, currently on Zofran also we will add in TSH Protonix. Patient denies chest pain or dyspnea. No urinary complaints. No other new complaints 07/02 Patient left foot pain is controlled, dressing in place, culture is growing presumptive staph, patient kept on IV vancomycin and cefepime and Flagyl as per ID team. Bone scan requested for tomorrow Also he was complaining from stomach upset, he denies stomach pain or abdominal pain, he denies chest pain or dyspnea. He states that his upset is because of the pills most likely referring to his Flagyl pills which is switched to IV Zosyn. Because of poor eating today due to stomach upset he became hypoglycemic, he received juice and D50 injection and his sugar improved. Patient is continued on hemodialysis as per nephrology team 07/03--patient was seen and examined today. Stable. WBCs 14.2, hemoglobin 9.3, platelets normal. ESR 77, CRP 15.7. Bone scan concerning for possible osteomyelitis of first digit near MTP joint. Infectious disease following, currently on Unasyn per ID. 07/04--patient was seen and examined today. Vital stable, remained afebrile. BMP today showed sodium 136, potassium 5.4, chloride 97, BUN 66, creatinine 5.7. Nephrology following, patient undergoing hemodialysis today. Currently on Unasyn, infectious disease following. Plan for IV cefazolin on discharge. 07/05--patient was seen and examined today. Patient spiked a fever of 102.8 overnight. WBC count was trending up. Discussed with infectious disease, recommended to continue Unasyn and monitor overnight for resolution of fever and make sure WBC count is trending down prior to discharge. Patient was afebrile this morning, heart rate 78, respiratory 16, blood pressure 149/65, saturating 99% on room air. 07/06. Patient seen and examined. Still left foot pain has improved. Currently undergoing dialysis. 07/07. Patient seen examined. Patient had been having episodes of low blood sugar levels, insulin NovoLog 70/30 decreased to 20 units twice a day. 07/08. Patient seen and examined. ID cleared the patient for discharge. Being discharged on IV cefazolin on dialysis days and Flagyl. PHYSICAL EXAMINATION: GENERAL: The patient is alert and oriented x3, not in any acute distress. Well developed, well nourished. HEENT: Pupils are round and equally reacting to light. EOMI. No scleral icterus. No conjunctival pallor. Normocephalic, atraumatic. No pharyngeal erythema. No thyromegaly. CARDIOVASCULAR: S1 and S2 present. No murmurs, rubs, or gallops. PULMONARY: Chest is clear to auscultation, no wheezing or crackles. ABDOMEN: Soft, nontender, nondistended, normoactive bowel sounds. No palpable organomegaly. MUSCULOSKELETAL: No joint swelling or deformity. Left foot dressing seen EXTREMITIES: No cyanosis, clubbing, or pedal edema. NEUROLOGICAL: Gross neurological examination did not reveal any focal deficits. SKIN: No rashes. Dictation was produced using [employer] dictation software. please excuse any grammatical, word or spelling errors. Plan - Discharge Summary Discharge Rx Participant: Yes New Discharge Prescriptions: New metroNIDAZOLE [Flagyl] 500 mg PO TID #90 tab HYDROcodone/APAP 5-325MG [[place] 5-325] 1 each PO Q6HR PRN 3 Days #10 tab PRN Reason: Moderate Pain (Scale 4 To 6) Losartan [Cozaar] 50 mg PO DAILY 30 Days #30 tab Continue Latanoprost/Pf [Latanoprost 0.005% Eye Drop] 1 drop BOTH EYES DAILY Dorzolamide 2% [Trusopt 2%] 1 drop BOTH EYES DAILY Atorvastatin Calcium [Lipitor] 80 mg PO HS Folic Acid/Vit B Complex and C [Marguerite-Ingris Tablet] 0.8 mg PO DAILY Calcium Acetate [PhosLo] 667 mg PO TID-W/MEALS #90 tab Acetaminophen Tab [Tylenol] 650 mg PO Q6HR PRN tab PRN Reason: Mild Pain Or Fever > 100.5 Tiotropium 2.5 Mcg/Puff [Spiriva Respimat 2.5 Mcg] 2 puff INHALATION DAILY Sertraline [Zoloft] 50 mg PO DAILY hydrALAZINE HCL [Apresoline] 100 mg PO TID #90 tab cloNIDine HCL [Catapres] 0.1 mg PO BID #60 tab carvediloL [Coreg*] 12.5 mg PO BID-W/MEALS #60 tab Changed Insulin Aspart Prot/Insuln Asp [NovoLOG MIX 70-30 Flexpen] 25 unit SQ BID- W/MEALS #0 Discontinued Losartan [Cozaar] 25 mg PO DAILY #30 tab Discharge Medication List Latanoprost/Pf [Latanoprost 0.005% Eye Drop] 1 drop BOTH EYES DAILY 05/23/19 [History] Atorvastatin Calcium [Lipitor] 80 mg PO HS 04/15/22 [History] Dorzolamide 2% [Trusopt 2%] 1 drop BOTH EYES DAILY 04/15/22 [History] Folic Acid/Vit B Complex and C [Marguerite-Ingris Tablet] 0.8 mg PO DAILY 06/15/24 [History] Sertraline [Zoloft] 50 mg PO DAILY 06/15/24 [History] Acetaminophen Tab [Tylenol] 650 mg PO Q6HR PRN tab 06/17/24 [Rx] Calcium Acetate [PhosLo] 667 mg PO TID-W/MEALS #90 tab 06/17/24 [Rx] cloNIDine HCL [Catapres] 0.1 mg PO BID #60 tab 06/17/24 [Rx] hydrALAZINE HCL [Apresoline] 100 mg PO TID #90 tab 06/17/24 [Rx] Tiotropium 2.5 Mcg/Puff [Spiriva Respimat 2.5 Mcg] 2 puff INHALATION DAILY 07/01/24 [History] HYDROcodone/APAP 5-325MG [[place] 5-325] 1 each PO Q6HR PRN 3 Days #10 tab 07/08/24 [Rx] Insulin Aspart Prot/Insuln Asp [NovoLOG MIX 70-30 Flexpen] 25 unit SQ BID- W/MEALS #0 07/08/24 [Rx] Losartan [Cozaar] 50 mg PO DAILY 30 Days #30 tab 07/08/24 [Rx] carvediloL [Coreg*] 12.5 mg PO BID-W/MEALS #60 tab 07/08/24 [Rx] metroNIDAZOLE [Flagyl] 500 mg PO TID #90 tab 07/08/24 [Rx] Follow up Appointment(s)/Referral(s): None,Stated [Primary Care Provider] - 1-2 days Tima Moore MD [STAFF PHYSICIAN] - 1 Week Ambulatory/Diagnostic Orders: Basic Metabolic Panel [LAB.AMB] Location: None Selected C Reactive Protein [LAB.AMB] Location: None Selected Complete Blood Count w/diff [LAB.AMB] Location: None Selected Erythrocyte Sedimentation Rate [LAB.AMB] Location: None Selected Discharge Disposition: HOME WITH HOME HEALTH SERVICES
[2024-07-08 17:15] LABS: Glucose,Whole Blood 125 mg/dL (70-110)
[2024-07-08] MEDS ORDERED: AMPICILLIN-SULBACTAM 3 GM in SODIUM CHLORIDE 0.9% 100 ML IVPB SCH (18:00)
[2024-07-08 19:58] LABS: Glucose,Whole Blood 155 mg/dL (70-110)
[2024-07-08] MEDS: PANTOPRAZOLE 40 MG TABLET PO SCH (21:32)
--- NOTE | 2024-07-08 21:41 | P.PN ---
Subjective Progress Note Date: 07/08/24 Principal diagnosis: Reason for follow-up is left diabetic foot infection concerning for possible osteo- Patient is a 68-year-old male with a past medical history significant for COPD, Diabetes Mellitus, Eye Disorder, Hyperlipidemia, Hypertension, Myocardial Infarction ([place]), Osteoarthritis (OA), Renal Disease, Sleep Apnea/CPAP/BIPAP, presenting to the hospital for evaluation of left foot pain. Patient did have Diabetic foot ulcer status post surgical debridement. On today's evaluation that is 07/08/2024, patient has been afebrile, patient is breathing comfortably and is currently on room air, patient denies having any significant cough no chest pain, patient denies nausea vomiting or diarrhea and no abdominal pain and no worsening pain to the left foot. Patient did not have lab draw today Objective - Vital Signs Vital signs: Vital Signs Temp 98.3 F 07/08/24 11:33 Pulse 65 07/08/24 11:33 Resp 16 07/08/24 11:33 BP 171/71 07/08/24 11:33 Pulse Ox 99 07/08/24 11:33 FiO2 Intake & Output 07/07/24 07/08/24 07/08/24 18:59 06:59 18:59 Intake Total 480 Output Total 1200 400 300 Balance -720 -400 -300 Weight 96.3 kg Intake: Oral 480 Output: Urine 1200 400 300 Other: Voiding Method Urinal Urinal - Exam GENERAL DESCRIPTION: An elderly male lying in bed in no distress RESPIRATORY SYSTEM: Unlabored breathing , decreased breath sounds at bases HEART: S1 S2 regular rate and rhythm , ABDOMEN: Soft , no tenderness EXTREMITIES: Left foot wound is currently dressed - Labs CBC & Chem 7: 07/07/24 07:35 07/07/24 07:35 Labs: Abnormal Lab Results - Last 24 Hours (Table) 07/07/24 07/07/24 07/08/24 Range/Units 07:05 20:31 07:31 POC Glucose (mg/dL) 148 H 152 H (70-110) mg/dL Hemoglobin A1c 7.5 H (<=6.0) % 07/08/24 Range/Units 12:13 POC Glucose (mg/dL) 144 H (70-110) mg/dL Hemoglobin A1c (<=6.0) % Assessment and Plan (1) Diabetic foot ulcers Current Visit: Yes Status: Acute Code(s): E11.621 - TYPE 2 DIABETES MELLITUS WITH FOOT ULCER; L97.509 - NON-PRESSURE CHRONIC ULCER OTH PRT UNSP FOOT W UNSP SEVERITY SNOMED Code(s): 713283868 (2) Left foot infection Current Visit: Yes Status: Acute Code(s): L08.9 - LOCAL INFECTION OF THE SKIN AND SUBCUTANEOUS TISSUE, UNSP SNOMED Code(s): 640676844 (3) Leukocytosis Current Visit: Yes Status: Acute Code(s): D72.829 - ELEVATED WHITE BLOOD CELL COUNT, UNSPECIFIED SNOMED Code(s): 876074222 Plan: 1patient with extensive diabetic foot ulcer/infection especially at the base of the first metatarsal with associated swelling redness concerning for a deep gravity of infection and possible early osteomyelitis will need to cover for the polymicrobial elena associated with diabetic foot infection. 2patient with left third toe dry gangrene. 3-significant leukocytosis likely due to diabetic foot infection which was trending down 4patient is status post debridement of the wound and deep culture results are currently growing MSSA and Finegoldia magna bone scan is suggestive of osteomyelitis 5patient is getting ready for discharge as reported by the nursing staff we will discontinue Unasyn ,Give a dose of cefazolin as plan is for cefazolin through the dialysis and oral Flagyl on discharge Dictation was produced using [employer] dictation software. please excuse any grammatical, word or spelling errors. Time with Patient: Less than 30
--- NOTE | 2024-07-09 00:16 | OP ---
OPERATIVE REPORT DATE OF SERVICE : PROCEDURE: Removal of dialysis catheter, right jugular approach. DESCRIPTION OF PROCEDURE: The patient was seen in the room. Right side of the neck was prepped and drapes applied in the usual sterile manner. 1% lidocaine infiltrated. Incisions were made at the exit site of the catheter, went circumferentially around the catheter. The catheter was removed. Incision was closed with 3-0 silk. Dressing applied. The patient tolerated the procedure well. MMODL / IJN: [id number] /
[2024-07-09 01:10] LABS: HCT 25.5 % (39.0-53.0); HGB 8.1 gm/dL (13.0-17.5); Hypochromasia Slight; MCH 31.2 pg (25.0-35.0); MCHC 31.9 g/dL (31.0-37.0); MCV 97.7 fL (80.0-100.0); Mean Platelet Volume 7.4; Platelet Count 341 k/uL (150-450); RBC 2.61 m/uL (4.30-5.90); RDW 13.1 % (11.5-15.5); WBC 14.4 k/uL (3.8-10.6)
[2024-07-09 01:19] LABS: Prothrombin Time 11.2 sec (10.0-12.5)
[2024-07-09 02:13] LABS: Glucose,Whole Blood 188 mg/dL (70-110)
--- NOTE | 2024-07-09 05:37 | PN ---
PROGRESS NOTE A 68-year-old gentleman, history of chronic renal failure, diabetes. The patient came with infected callus, right foot. We did excision of the callus with local wound care. The patient on IV antibiotic, under the care of Infectious Disease. Today, we have changed the dressing. We will change to Santyl cream after major arrangement to come to the wound clinic. We will notify him tomorrow for change of dressing. The patient also has a fourth toe dry gangrene and some mild redness noted of the big toe. We will continue Santyl cream and arrange for the wound care visit. MMODL / IJN: [id number] /
[2024-07-09 07:31] LABS: Glucose,Whole Blood 198 mg/dL (70-110)
[2024-07-09 07:49] LABS: Basophils % (A) 0 %; Eosinophils # (A) 0.4 k/uL (0-0.7); Eosinophils % (A) 3 %; HCT 23.5 % (39.0-53.0); HGB 7.3 gm/dL (13.0-17.5); Hypochromasia Slight; Lymphocytes % (A) 8 %; MCH 30.5 pg (25.0-35.0); MCHC 31.1 g/dL (31.0-37.0); MCV 98.2 fL (80.0-100.0); Mean Platelet Volume 7.2; Monocytes # (A) 0.6 k/uL (0-1.0); Monocytes % (A) 4 %; Neutrophils # (A) 11.2 k/uL (1.3-7.7); Neutrophils % (A) 83 %; Platelet Count 331 k/uL (150-450); RDW 13.3 % (11.5-15.5); WBC 13.4 k/uL (3.8-10.6)
--- NOTE | 2024-07-09 11:00 | P.PN ---
Subjective Patient is seen in follow-up for end-stage renal disease. Resting in bed. No active complaints. Tolerating dialysis well. Vital signs are stable. General: No acute distress. HEENT: Head exam is unremarkable. LUNGS: No audible rhonchi or wheezes. HEART: Rate and Rhythm are regular. ABDOMEN: Nontender. EXTREMITITES: Left foot wrapped. No edema. Objective - Vital Signs Vital signs: Vital Signs Temp 98.6 F 07/09/24 07:12 Pulse 62 07/09/24 07:12 Resp 17 07/09/24 07:12 BP 147/66 07/09/24 07:12 Pulse Ox 97 07/09/24 07:12 FiO2 Intake & Output 07/08/24 07/09/24 07/09/24 18:59 06:59 18:59 Intake Total 540 320 Output Total 900 300 150 Balance -900 240 170 Intake: Oral 540 320 Output: Urine 900 300 150 Other: Voiding Method Urinal # Voids 3 - Labs CBC & Chem 7: 07/09/24 07:34 07/07/24 07:35 Labs: Abnormal Lab Results - Last 24 Hours (Table) 07/08/24 07/08/24 07/08/24 Range/Units 12:13 17:10 19:57 WBC (3.8-10.6) k/uL RBC (4.30-5.90) m/uL Hgb (13.0-17.5) gm/dL Hct (39.0-53.0) % Neutrophils # (1.3-7.7) k/uL POC Glucose (mg/dL) 144 H 125 H 155 H (70-110) mg/dL 07/09/24 07/09/24 07/09/24 Range/Units 01:02 02:12 07:29 WBC 14.4 H (3.8-10.6) k/uL RBC 2.61 L (4.30-5.90) m/uL Hgb 8.1 L (13.0-17.5) gm/dL Hct 25.5 L (39.0-53.0) % Neutrophils # (1.3-7.7) k/uL POC Glucose (mg/dL) 188 H 198 H (70-110) mg/dL 07/09/24 Range/Units 07:34 WBC 13.4 H (3.8-10.6) k/uL RBC 2.40 L (4.30-5.90) m/uL Hgb 7.3 L (13.0-17.5) gm/dL Hct 23.5 L (39.0-53.0) % Neutrophils # 11.2 H (1.3-7.7) k/uL POC Glucose (mg/dL) (70-110) mg/dL Assessment and Plan Plan: Assessment: 1. End-stage renal disease maintained on hemodialysis on Monday schedule. 2. Hypertension with chronic kidney disease. Stable. 3. Left foot infected callus status post excision. Being followed by infectious disease and vascular surgery. 4. Chronic kidney disease mineral bone disease maintained on PhosLo. 5. Volume overload. Improved with ultrafiltration. Plan: Currently seen while undergoing hemodialysis. AV graft functioning well. Permacath discontinued.
[2024-07-09 12:31] LABS: Glucose,Whole Blood 185 mg/dL (70-110)
--- NOTE | 2024-07-09 12:36 | P.PN ---
Subjective Progress Note Date: 07/09/24 Principal diagnosis: Reason for follow-up is left diabetic foot infection concerning for possible osteo- Patient is a 68-year-old male with a past medical history significant for COPD, Diabetes Mellitus, Eye Disorder, Hyperlipidemia, Hypertension, Myocardial Infarction ([place]), Osteoarthritis (OA), Renal Disease, Sleep Apnea/CPAP/BIPAP, presenting to the hospital for evaluation of left foot pain. Patient did have Diabetic foot ulcer status post surgical debridement. On today's evaluation that is 07/09/2024, Patient is afebrile this morning patient denies having any chest pain shortness of breath or cough, the patient is currently on room air, patient denies any abdominal pain no diarrhea no nausea no vomiting has been complaining of some pain to the left foot area but no worsening. Patient white count is 13.4 Objective - Vital Signs Vital signs: Vital Signs Temp 98.6 F 07/09/24 07:12 Pulse 62 07/09/24 07:12 Resp 17 07/09/24 07:12 BP 147/66 07/09/24 07:12 Pulse Ox 97 07/09/24 07:12 FiO2 Intake & Output 07/08/24 07/09/24 07/09/24 18:59 06:59 18:59 Intake Total 540 200 Output Total 900 300 150 Balance -900 240 50 Intake: Oral 540 200 Output: Urine 900 300 150 Other: Voiding Method Urinal # Voids 3 - Exam GENERAL DESCRIPTION: An elderly male lying in bed in no distress RESPIRATORY SYSTEM: Unlabored breathing , decreased breath sounds at bases HEART: S1 S2 regular rate and rhythm , ABDOMEN: Soft , no tenderness EXTREMITIES: Left foot wound is currently dressed - Labs CBC & Chem 7: 07/09/24 07:34 07/07/24 07:35 Labs: Abnormal Lab Results - Last 24 Hours (Table) 07/08/24 07/08/24 07/08/24 Range/Units 12:13 17:10 19:57 WBC (3.8-10.6) k/uL RBC (4.30-5.90) m/uL Hgb (13.0-17.5) gm/dL Hct (39.0-53.0) % Neutrophils # (1.3-7.7) k/uL POC Glucose (mg/dL) 144 H 125 H 155 H (70-110) mg/dL 07/09/24 07/09/24 07/09/24 Range/Units 01:02 02:12 07:29 WBC 14.4 H (3.8-10.6) k/uL RBC 2.61 L (4.30-5.90) m/uL Hgb 8.1 L (13.0-17.5) gm/dL Hct 25.5 L (39.0-53.0) % Neutrophils # (1.3-7.7) k/uL POC Glucose (mg/dL) 188 H 198 H (70-110) mg/dL 07/09/24 Range/Units 07:34 WBC 13.4 H (3.8-10.6) k/uL RBC 2.40 L (4.30-5.90) m/uL Hgb 7.3 L (13.0-17.5) gm/dL Hct 23.5 L (39.0-53.0) % Neutrophils # 11.2 H (1.3-7.7) k/uL POC Glucose (mg/dL) (70-110) mg/dL Assessment and Plan (1) Diabetic foot ulcers Current Visit: Yes Status: Acute Code(s): E11.621 - TYPE 2 DIABETES MELLITUS WITH FOOT ULCER; L97.509 - NON-PRESSURE CHRONIC ULCER OTH PRT UNSP FOOT W UNSP SEVERITY SNOMED Code(s): 995319539 (2) Left foot infection Current Visit: Yes Status: Acute Code(s): L08.9 - LOCAL INFECTION OF THE SKIN AND SUBCUTANEOUS TISSUE, UNSP SNOMED Code(s): 842379444 (3) Leukocytosis Current Visit: Yes Status: Acute Code(s): D72.829 - ELEVATED WHITE BLOOD CELL COUNT, UNSPECIFIED SNOMED Code(s): 512599008 Plan: 1patient with extensive diabetic foot ulcer/infection especially at the base of the first metatarsal with associated swelling redness concerning for a deep gravity of infection and possible early osteomyelitis will need to cover for the polymicrobial elena associated with diabetic foot infection. 2patient with left third toe dry gangrene. 3-significant leukocytosis likely due to diabetic foot infection which was trending down 4patient is status post debridement of the wound and deep culture results are currently growing MSSA and Finegoldia magna bone scan is suggestive of osteomyelitis 5patient discharge was put on hold yesterday by vascular surgery he should re ceive a dose of cefazolin postdialysis prescription for outpatient robotic already provided to the welfare case worker yesterday Dictation was produced using [employer] dictation software. please excuse any gram matical, word or spelling errors. Time with Patient: Less than 30
--- NOTE | 2024-07-09 13:03 | P.PN ---
Subjective Progress Note Date: 07/09/24 68-year-old male who presents to the emergency department for left foot pain. Patient has been dealing with diabetic ulcers for many years. States that he followed up with Dr. Walter yesterday and had some sort of procedure done and since then he has had increasing pain. States that he is unable to ambulate due to the pain. Foot is currently bandaged with some active drainage. Foot is very malodorous. Denies any fevers or chills. Not currently on antibiotics. A couple of his smaller toes appear black. Patient is unsure how long they have been black. Blood work completed in ED reveals a WBC of 20.9, hemoglobin of 10.1 and platelet count of 285, sodium 130, potassium 4.7, BUN/creatinine of 92/6.59, blood glucose of 308 X-ray of the foot reveals osteoarthritic changes without any osseous erosions or evidence of osteomyelitis / Patient is a pleasant 68 years old male who presents with left foot infection s/p debridement of the callus at the plantar surface of the left foot with cell ulitis extending into the big toe. Wound cultures pending, currently covered with cefepime, IV vancomycin and p.o. Flagyl. Pain at the foot is controlled but patient has been complaining from stomach upset, he denies abdominal pain or tenderness, he feels nausea and wants something to help him, currently on Zofran also we will add in TSH Protonix. Patient denies chest pain or dyspnea. No urinary complaints. No other new complaints / Patient left foot pain is controlled, dressing in place, culture is growing presumptive staph, patient kept on IV vancomycin and cefepime and Flagyl as per ID team. Bone scan requested for tomorrow Also he was complaining from stomach upset, he denies stomach pain or abdominal pain, he denies chest pain or dyspnea. He states that his upset is because of the pills most likely referring to his Flagyl pills which is switched to IV Zosyn. Because of poor eating today due to stomach upset he became hypoglycemic, he received juice and D50 injection and his sugar improved. Patient is continued on hemodialysis as per nephrology team 07/03--patient was seen and examined today. Stable. WBCs 14.2, hemoglobin 9.3, platelets normal. ESR 77, CRP 15.7. Bone scan concerning for possible osteomyelitis of first digit near MTP joint. Infectious disease following, currently on Unasyn per ID. 07/04--patient was seen and examined today. Vital stable, remained afebrile. BMP today showed sodium 136, potassium 5.4, chloride 97, BUN 66, creatinine 5.7. Nephrology following, patient undergoing hemodialysis today. Currently on Unasyn, infectious disease following. Plan for IV cefazolin on discharge. 07/05--patient was seen and examined today. Patient spiked a fever of 102.8 overnight. WBC count was trending up. Discussed with infectious disease, re commended to continue Unasyn and monitor overnight for resolution of fever and make sure WBC count is trending down prior to discharge. Patient was afebrile this morning, heart rate 78, respiratory 16, blood pressure 149/65, saturating 99% on room air. 07/06. Patient seen and examined. Still left foot pain has improved. Currently undergoing dialysis. 07/07. Patient seen examined. Patient had been having episodes of low blood sugar levels, insulin NovoLog 70/30 decreased to 20 units twice a day. 07/09. Patient seen and examined. Patient was supposed to be discharged yesterday but was postponed till today as patient catheter site was oozing from where dialysis catheter was removed. Hemoglobin remained stable, no more oozing. REVIEW OF SYSTEMS: CONSTITUTIONAL: No fever, no malaise,. CARDIOVASCULAR: No chest pain, no palpitations, no syncope. PULMONARY: No shortness of breath, no cough, GASTROINTESTINAL: No diarrhea, no nausea, no vomiting, no abdominal pain. NEUROLOGICAL: No headaches, no weakness, PHYSICAL EXAMINATION: GENERAL: The patient is alert and oriented x3, not in any acute distress. Well developed, well nourished. HEENT: Pupils are round and equally reacting to light. EOMI. No scleral icterus. No conjunctival pallor. Normocephalic, atraumatic. No pharyngeal erythema. No thyromegaly. CARDIOVASCULAR: S1 and S2 present. No murmurs, rubs, or gallops. PULMONARY: Chest is clear to auscultation, no wheezing or crackles. ABDOMEN: Soft, nontender, nondistended, normoactive bowel sounds. No palpable organomegaly. MUSCULOSKELETAL: No joint swelling or deformity. Left foot dressing seen EXTREMITIES: No cyanosis, clubbing, or pedal edema. NEUROLOGICAL: Gross neurological examination did not reveal any focal deficits. SKIN: No rashes. Assessment and plan 1. Infected diabetic left foot ulcer/osteomyelitis -- Vascular surgery and ID consulted ---Status post debridement of wound and deep culturesgrowing MSSA and Finegoldia magna -- Follow-up wound culture. Pending results growing staph --Was on vancomycin cefepime and Flagyl switched to Unasyn now.>>> --Bone scan --- cellulitis of left foot with possible osteomyelitis of first digit near the MTP joint. 07/09. Patient to be discharged on cefazolin with dialysis and Flagyl 2. Leukocytosis/sepsis; as mentioned above 3. Hyperglycemia without acidosis; diabetes mellitus with long-term insulin use; Monitor blood sugar levels, continue current insulin regimen 4. Hypertension; currently on Coreg 12.5 mg twice daily, hydralazine 100 mg 3 times daily, clonidine 0.1 mg twice daily and losartan 25 mg daily 6. Hyperlipidemia; Lipitor 80 mg p.o. nightly 6. COPD, not in exacerbation; continue with home inhaler therapy 7. Depression; Zoloft 50 mg daily 8. End-stage renal disease/HD; patient maintains a schedule of Monday, and Monday; Continue dialysis per nephrology Labs and medication were reviewed.. Continue same treatment. Continue with symptomatic treatment. Resume home medication. Monitor labs and vitals. DVT and GI prophylaxis. Further recommendations as per clinical course of the patient Dictation was produced using [employer] dictation software. please excuse any grammatical, word or spelling errors. Objective - Vital Signs Vital signs: Vital Signs Temp 98.6 F 07/09/24 07:12 Pulse 62 07/09/24 07:12 Resp 17 07/09/24 07:12 BP 147/66 07/09/24 07:12 Pulse Ox 97 07/09/24 07:12 FiO2 Intake & Output 07/08/24 07/09/24 07/09/24 18:59 06:59 18:59 Intake Total 540 320 Output Total 900 300 150 Balance -900 240 170 Intake: Oral 540 320 Output: Urine 900 300 150 Other: Voiding Method Urinal # Voids 3 - Labs CBC & Chem 7: 07/09/24 07:34 07/07/24 07:35 Labs: Abnormal Lab Results - Last 24 Hours (Table) 07/08/24 07/08/24 07/09/24 Range/Units 17:10 19:57 01:02 WBC 14.4 H (3.8-10.6) k/uL RBC 2.61 L (4.30-5.90) m/uL Hgb 8.1 L (13.0-17.5) gm/dL Hct 25.5 L (39.0-53.0) % Neutrophils # (1.3-7.7) k/uL POC Glucose (mg/dL) 125 H 155 H (70-110) mg/dL 07/09/24 07/09/24 07/09/24 Range/Units 02:12 07:29 07:34 WBC 13.4 H (3.8-10.6) k/uL RBC 2.40 L (4.30-5.90) m/uL Hgb 7.3 L (13.0-17.5) gm/dL Hct 23.5 L (39.0-53.0) % Neutrophils # 11.2 H (1.3-7.7) k/uL POC Glucose (mg/dL) 188 H 198 H (70-110) mg/dL 07/09/24 Range/Units 12:29 WBC (3.8-10.6) k/uL RBC (4.30-5.90) m/uL Hgb (13.0-17.5) gm/dL Hct (39.0-53.0) % Neutrophils # (1.3-7.7) k/uL POC Glucose (mg/dL) 185 H (70-110) mg/dL
[2024-07-09 14:00] VITALS: BP 133/72; PULSE 98; RESP 18; TEMP 97.9
[2024-07-09] MEDS: metroNIDAZOLE 500 MG TAB PO SCH (17:07)
[2024-07-09 17:08] LABS: Glucose,Whole Blood 188 mg/dL (70-110)
--- NOTE | 2024-07-10 20:08 | CDI ---
Documentation Clarification Form Date: 07/10/2024 07:58:30 PM From: Poornima Brennan Phone: Admit Date: 06/30/2024 02:20:00 PM Patient Name: Julio César Panchal Visit Number: [id number] Discharge Date: 07/09/2024 06:07:00 PM ATTENTION: The Clinical Documentation Specialists (CDI) and [facility] Coding Staff appreciate your assistance in clarifying documentation. Please respond to the clarification below the line at the bottom and electronically sign. The CDI & [facility] Coding staff will review the response and follow-up if needed. Please note: Queries are made part of the Legal Health Record. If you have any questions, please contact the author of this message via ITS. Doctor/Provider: Gretchen Landrum There is documentation of mineral bone disease per Nephrology Consult and Progress Notes. Additional clarification is requested. History/Risk Factors: 68yo M, ESRD, DMII w foot infection, gangrene, & cellulitis, HTN, COPD Clinical Indicators: .CKD mineral bone disorder Treatment: Calcium Acetate [PhosLo] 667 mg PO TID-W/MEALS Can you please specify the mineral bone disease, if possible? [x ] Renal osteodystrophy [ ] Mineral bone disease [ ] Other, please specify [ ] Unable to determine (Template Last Revised: July 2020) MTDD
--- NOTE | 2024-07-10 20:22 | CDI ---
Documentation Clarification Form Date: 07/10/2024 08:09:39 PM From: Poornima Brennan Phone: Admit Date: 06/30/2024 02:20:00 PM Patient Name: Julio César Panchal Visit Number: [id number] Discharge Date: 07/09/2024 06:07:00 PM ATTENTION: The Clinical Documentation Specialists (CDI) and [facility] Coding Staff appreciate your assistance in clarifying documentation. Please respond to the clarification below the line at the bottom and electronically sign. The CDI & [facility] Coding staff will review the response and follow-up if needed. Please note: Queries are made part of the Legal Health Record. If you have any questions, please contact the author of this message via ITS. Doctor/Provider: Dillan Walter There is documentation of a wound callusplantar aspect the left footmeasurement. Additional specificity regarding the etiology and severity of the wound is requested. History/Risk Factors: Infecteddiabeticleft foot ulcer/osteomyelitis, sepsisMSSAand Finegoldia magna, sepsis, DM w II hyperglycemia& hypoglycemia, HTN, HLD, COPD, depression, ESRD Clinical Indicators: Callusplantar aspect the left footmeasurementis 2 x 2 cm with mild redness on the dorsum aspect of the foot and involving the big toe Treatment: Postopis adebridementof the left footmeasurementis 2 x 2 x 1 cm post debridement Please clarify the etiology and severity of the wound: Etiology: [ X ] Non-pressure chronic ulcer due to diabetes [ ] Non-pressure chronic ulcer due to arterial insufficiency [ ] Non-pressure chronic ulcer due to venous insufficiency [ ] Other, Please specify [ ] Unable to determine Severity: [ ] Limited to breakdown of skin [ ] With fat layer exposed [ X ] With necrosis of muscle [ ] Other, Please specify [ ] Unable to determine (Template Last Revised: July 2020) MTDD
--- NOTE | 2024-07-10 21:00 | CDI ---
Documentation Clarification Form Date: 07/10/2024 08:44:27 PM From: Poornima Brennan Phone: Admit Date: 06/30/2024 02:20:00 PM Patient Name: Julio César Panchal Visit Number: [id number] Discharge Date: 07/09/2024 06:07:00 PM ATTENTION: The Clinical Documentation Specialists (CDI) and [facility] Coding Staff appreciate your assistance in clarifying documentation. Please respond to the clarification below the line at the bottom and electronically sign. The CDI & [facility] Coding staff will review the response and follow-up if needed. Please note: Queries are made part of the Legal Health Record. If you have any questions, please contact the author of this message via ITS. Doctor/Provider: Dillan Walter Excisional debridement is documented on Procedure Note 2/2. Some required elements have not been documented. Additional clarification regarding the procedure is requested. History/Risk Factors: Infected diabetic left foot ulcer/osteomyelitis, sepsis MSSA and Finegoldia magna, sepsis, DM w II hyperglycemia & hypoglycemia, HTN, HLD, COPD, depression, ESRD Clinical Indicators: Callus plantar aspect the left foot measurement is 2 x 2 cm with mild redness on the dorsum aspect of the foot and involving the big toe Treatment: Postop is a debridement of the left foot measurement is 2 x 2 x 1 cm post debridement Please clarify the procedure performed: [ X ] Excisional debridement Appearance of the wound Depth of debridement [ ] Other; please specify Five elements required for accurate and compliant documentation of a debridement: -Technique used (e.g., excisional, excised, cutting, brushing, jet lavage etc.) -Instrument(s) used (e.g., scalpel, curette, etc.) -Nature of the tissue removed (e.g., necrotic, devitalized tissues, non-viable tissue, etc.) -Appearance and size of the wound (e.g., down to fresh bleeding tissue, 7cm x 10cm, etc.) -Depth of the debridement* (e.g., skin, subcutaneous tissue, fascia, muscle, bone, etc.) (Template Last Revised: January 2024) MTDD
--- NOTE | 2024-07-12 09:54 | CDI ---
Documentation Clarification Form Date: 07/12/2024 09:34:41 AM From: Poornima Brennan Phone: Admit Date: 06/30/2024 02:20:00 PM Patient Name: Julio César Panchal Visit Number: [id number] Discharge Date: 07/09/2024 06:07:00 PM ATTENTION: The Clinical Documentation Specialists (CDI) and [facility] Coding Staff appreciate your assistance in clarifying documentation. Please respond to the clarification below the line at the bottom and electronically sign. The CDI & [facility] Coding staff will review the response and follow-up if needed. Please note: Queries are made part of the Legal Health Record. If you have any questions, please contact the author of this message via ITS. Doctor/Provider: Dillan Walter Thank you for clarifying the type of debridement in the previous query; however, the depth of debridement is not documented in the Op Note. Additional clarification regarding the procedure is requested. History/Risk Factors:68yo M, DMw IIhyperglycemia &hypoglycemia, infecteddiabeticLT foot ulcer/osteomyelitis,sepsis d/t MSSA& Finegoldia magna,sepsis,HTN, HLD,COPD,depression,ESRD Clinical Indicators: Callusplantar aspect the LT footmeasurementis 2 x 2 cm with mild redness on the dorsum aspect of the foot and involving the big toe muscle Treatment: debridementof the LT footmeasurementis 2 x 2 x 1 cm postdebridement Please clarify the depth of Excisional debridement: [ ] Skin [ ] Subcutaneous tissue [ ] Fascia [ ] Muscle [ ] Bone Five elements required for accurate and compliant documentation of a debridement: -Technique used (e.g., excisional, excised, cutting, brushing, jet lavage etc.) -Instrument(s) used (e.g., scalpel, curette, etc.) -Nature of the tissue removed (e.g., necrotic, devitalized tissues, non-viable tissue, etc.) -Appearance and size of the wound (e.g., down to fresh bleeding tissue, 7cm x 10cm, etc.) -Depth of the debridement* (e.g., skin, subcutaneous tissue, fascia, muscle, bone, etc.) (Template Last Revised: January 2024) MTDD
--- NOTE | 2024-07-14 14:18 | CDI ---
Documentation Clarification Form Date: 07/14/2024 02:15:05 PM From: Poornima Brennan Phone: Admit Date: 06/30/2024 02:20:00 PM Patient Name: Julio César Panchal Visit Number: [id number] Discharge Date: 07/09/2024 06:07:00 PM ATTENTION: The Clinical Documentation Specialists (CDI) and [facility] Coding Staff appreciate your assistance in clarifying documentation. Please respond to the clarification below the line at the bottom and electronically sign. The CDI & [facility] Coding staff will review the response and follow-up if needed. Please note: Queries are made part of the Legal Health Record. If you have any questions, please contact the author of this message via ITS. Callusplantar aspect the LT foot is documented as having been debrided; however, the depth ofdebridementis not documented in the Op Note. Clarification regarding the depth ofdebridement procedure is requested. History/Risk Factors:68yo M,DMw IIhyperglycemiahypoglycemia, infecteddiabeticLT foot ulcer/osteomyelitis,sepsis d/t MSSA Finegoldia magna,sepsis,HTN,HLD,COPD,depression,ESRD Clinical Indicators:Callusplantar aspect the LT footmeasurementis 2 x 2 cm with mild redness on the dorsum aspect of the foot and involving the big toe muscle Treatment: debridementof the LT footmeasurementis 2 x 2 x 1 cm postdebridement Please clarify the depth ofExcisional debridement: [ ] Skin [ X ] Subcutaneous tissue [ ] Fascia [ ] Muscle [ ] Bone Five elements required for accurate and compliant documentation of a debridement: -Technique used: excisional Instrument(s) used: scalpel -Nature of the tissueremoved: necrotic, devitalized tissues MTDD
== END 2024-07-09 18:07 | disposition home health service (06) | DRG 853 ==
LOC: EC 11:39 → 5NMEDONC 14:20
PROVIDERS: ADMIT Internal Medicine; ATTEND Internal Medicine
PROC: 0SBM0ZZ Excision of Right Metatarsal-Phalangeal Joint, Open Approach (ICD-10-PCS; 2024-06-30)
PROC: 5A1D70Z Performance of Urinary Filtration, Intermittent, Less than 6 Hours Per Day (ICD-10-PCS; principal; 2024-07-02)
PROC: 02PYX3Z Removal of Infusion Device from Great Vessel, External Approach (ICD-10-PCS; 2024-07-08)
DX: A41.01 Sepsis due to Methicillin susceptible Staphylococcus aureus (principal); N18.6 End stage renal disease; I70.262 Atherosclerosis of native arteries of extremities with gangrene, left leg; I12.0 Hypertensive chronic kidney disease with stage 5 chronic kidney disease or end stage renal disease; L97.523 Non-pressure chronic ulcer of other part of left foot with necrosis of muscle; Z99.2 Dependence on renal dialysis; E11.52 Type 2 diabetes mellitus with diabetic peripheral angiopathy with gangrene; J44.9 Chronic obstructive pulmonary disease, unspecified; F32.A Depression, unspecified; M86.8X7 Other osteomyelitis, ankle and foot; L03.116 Cellulitis of left lower limb; E11.622 Type 2 diabetes mellitus with other skin ulcer; E11.65 Type 2 diabetes mellitus with hyperglycemia; E11.649 Type 2 diabetes mellitus with hypoglycemia without coma; Z79.4 Long term (current) use of insulin; E11.69 Type 2 diabetes mellitus with other specified complication; E11.621 Type 2 diabetes mellitus with foot ulcer; N25.0 Renal osteodystrophy; B96.89 Other specified bacterial agents as the cause of diseases classified elsewhere; E78.5 Hyperlipidemia, unspecified; F17.210 Nicotine dependence, cigarettes, uncomplicated; E87.70 Fluid overload, unspecified; L84 Corns and callosities; Z96.641 Presence of right artificial hip joint; Z86.74 Personal history of sudden cardiac arrest; Z88.1 Allergy status to other antibiotic agents; I25.2 Old myocardial infarction; Z79.899 Other long term (current) drug therapy
CPT/HCPCS: 36415; 78315; 80048; 80053; 80202; 83036; 83605; 84145; 85025; 85027; 85610; 85652; 86140; 87040; 87070; 87075; 87077; 87186; 87205; 90935; 96365; 96367; 96375; 99285

== ENCOUNTER 2024-10-29 10:00 | Inpatient (IN) | payer OTHER ==
--- NOTE | 2024-10-29 10:41 | ED ---
General Adult HPI - General Chief complaint: Recheck/Abnormal Lab/Rx Stated complaint: Plugged Vein Time Seen by Provider: 10/29/24 10:17 Source: patient, RN notes reviewed Mode of arrival: ambulatory Limitations: no limitations - History of Present Illness Initial comments: 69-year-old male presents to the emergency department sent in from dialysis for a blocked fistula. Patient states that he attempted to have dialysis today but they were unable to do so due to having issues with the fistula. He reports Monday, , Monday dialysis. His last dialysis was on Monday. He otherwise feels well at this time. - Related Data Home Medications Medication Instructions Recorded Confirmed Latanoprost/Pf [Latanoprost 0.005% 1 drop BOTH EYES HS 05/23/19 10/29/24 Eye Drop] Atorvastatin Calcium [Lipitor] 80 mg PO HS 04/15/22 10/29/24 Dorzolamide 2% [Trusopt 2%] 1 drop BOTH EYES TID 04/15/22 10/29/24 Sertraline [Zoloft] 50 mg PO DAILY 06/15/24 10/29/24 Tiotropium 2.5 Mcg/Puff [Spiriva 2 puff INHALATION RT-DAILY 07/01/24 10/29/24 Respimat 2.5 Mcg] Docusate Sodium 100 mg PO BID PRN 10/29/24 10/29/24 Insulin Aspart Prot/Insuln Asp See Protocol SQ AC-BID 10/29/24 10/29/24 [NovoLOG MIX 70-30 Flexpen] Losartan [Cozaar] 25 mg PO BID 10/29/24 10/29/24 Ondansetron Odt [Zofran ODT] 4 mg PO Q8H PRN 10/29/24 10/29/24 Previous Rx's Medication Instructions Recorded cloNIDine HCL [Catapres] 0.1 mg PO BID #60 tab 06/17/24 hydrALAZINE HCL [Apresoline] 100 mg PO TID #90 tab 06/17/24 Allergies Allergy/AdvReac Type Severity Reaction Status Date / Time clindamycin Allergy Anaphylaxis Verified 10/29/24 13:00 Review of Systems ROS Statement: Those systems with pertinent positive or pertinent negative responses have been documented in the HPI. ROS Other: All systems not noted in ROS Statement are negative. Past Medical History Past Medical History: COPD, Diabetes Mellitus, Eye Disorder, Hyperlipidemia, Hypertension, Myocardial Infarction (HI), Osteoarthritis (OA), Renal Disease, Sleep Apnea/CPAP/BIPAP Additional Past Medical History / Comment(s): IDDM,Diabetic retinopathy, GLAUCOMA. HEMODIALYSIS ,TH,SA-4 hours-access rt chest port. USES CPAP-machine currently not working calling [facility] Last Myocardial Infarction Date:: 2014 History of Any Multi-Drug Resistant Organisms: None Reported Past Surgical History: Joint Replacement, Tonsillectomy Additional Past Surgical History / Comment(s): rt total hip replacement, lasik eye surgery. FX JAW WIRED IN 1989,failed av fistula left upper arm Past Anesthesia/Blood Transfusion Reactions: Previous Problems w/ Anesthesia Additional Past Anesthesia/Blood Transfusion Reaction / Comment(s): pt states "cardiac arrest during hip replacement surgery with Dr Franklin at [facility] in 2014" Past Psychological History: No Psychological Hx Reported Smoking Status: Current every day smoker Past Alcohol Use History: None Reported Past Drug Use History: None Reported - Past Family History Sister(s) Family Medical History: Cancer Additional Family Medical History / Comment(s): ovarian CA, lung CA Brother(s) Family Medical History: Cancer Additional Family Medical History / Comment(s): prostate CA General Exam Limitations: no limitations General appearance: alert, in no apparent distress Head exam: Present: atraumatic, normocephalic, normal inspection Eye exam: Present: normal appearance, PERRL, EOMI. Absent: scleral icterus, conjunctival injection, periorbital swelling Respiratory exam: Present: normal lung sounds bilaterally. Absent: respiratory distress, wheezes, rales, rhonchi, stridor Cardiovascular Exam: Present: regular rate, normal rhythm, normal heart sounds. Absent: systolic murmur, diastolic murmur, rubs, gallop, clicks Extremities exam: Present: full ROM, normal capillary refill, other (dialysis). Absent: tenderness, pedal edema, joint swelling, calf tenderness Course Vital Signs 10/29/24 10/29/24 10/29/24 10:12 13:36 15:07 Temperature 97.6 F Pulse Rate 80 87 68 Respiratory 18 20 18 Rate Blood Pressure 158/75 218/100 207/78 O2 Sat by Pulse 98 98 98 Oximetry 10/29/24 10/29/24 10/29/24 17:20 19:50 20:36 Temperature 98.3 F Pulse Rate 86 79 81 Respiratory 20 18 18 Rate Blood Pressure 188/84 202/97 191/97 O2 Sat by Pulse 97 96 97 Oximetry 10/29/24 10/29/24 21:00 21:57 Temperature 98.2 F Pulse Rate 92 74 Respiratory 18 18 Rate Blood Pressure 197/90 147/70 O2 Sat by Pulse 97 95 Oximetry Medical Decision Making - Medical Decision Making Was pt. sent in by a medical professional or institution (DEE Lockett, FEED BLENDER, urgent ca re, hospital, or [place] health care facility...) When possible be specific @ -No Did you speak to anyone other than the patient for history (EMS, parent, family, police, friend...)? What history was obtained from this source @ -No Did you review nursing and triage notes (agree or disagree)? Why? @ -I reviewed and agree with nursing and triage notes Were old charts reviewed (outside hosp., previous admission, EMS record, old EKG, old radiological studies, urgent care reports/EKG's, [place] health care facility records)? Report findings @ -No old charts were reviewed Differential Diagnosis (chest pain, altered mental status, abdominal pain women, abdominal pain men, vaginal bleeding, weakness, fever, dyspnea, syncope, headache, dizziness, GI bleed, back pain, seizure, CVA, palpatations, mental health, musculoskeletal)? @ -Clotted fistula, EKG interpreted by me (3pts min.). @ -EKG@1047 shows sinus rhythm rate 84, MN 140, QRS 102, QTQTc 516800 X-rays interpreted by me (1pt min.). @ -None done CT interpreted by me (1pt min.). @ -None done U/S interpreted by me (1pt. min.). @ -None done What testing was considered but not performed or refused? (CT, X-rays, U/S, labs)? Why? @ -None What meds were considered but not given or refused? Why? @ -None Did you discuss the management of the patient with other professionals (professionals i.e. DEE Lockett, FEED BLENDER, lab, RT, psych nurse, social media strategist, flatwork finisher, teacher, soil science technical officer, insurance case manager)? Give summary @ -I discussed the case with Eneida Neetu, FEED BLENDER-C with vascular surgery who recommends that the patient be kept n.p.o. at this time, believes that the patient will require fistulogram she recommended that the patient be admitted Was smoking cessation discussed for >3mins.? @ -No Was critical care preformed (if so, how long)? @ -No Were there social determinants of health that impacted care today? How? (Homelessness, low income, unemployed, alcoholism, drug addiction, transportation, low edu. Level, literacy, decrease access to med. care, alf, rehab)? @ -No Was there de-escalation of care discussed even if they declined (Discuss DNR or withdrawal of care, Hospice)? DNR status @ -No What co-morbidities impacted this encounter? (DM, HTN, Smoking, COPD, CAD, Cancer, CVA, ARF, Chemo, Hep., AIDS, mental health diagnosis, sleep apnea, morbid obesity)? @ -None Was patient admitted / discharged? Hospital course, mention meds given and route, prescriptions, significant lab abnormalities, going to OR and other pertinent info. @ -[Admitted. Patient presented the emergency department for clotted fistula. I discussed the case with Eneida De Anda with vascular surgery recommends that the patient be kept n.p.o. at this time. She believes that the patient needs a fistulogram but does not believe that the patient will be able to have this done today. The patient will be admitted to the hospital for this. Nephrology consulted as well. Patient is understanding and agreeable this plan. Case discussed with admitting team who is accepting of the admission Case discussed with Dr. Lo. Undiagnosed new problem with uncertain prognosis? @ -No Drug Therapy requiring intensive monitoring for toxicity (Heparin, Nitro, Insulin, Cardizem)? @ -No Were any procedures done? @ -No Diagnosis/symptom? @ -clotted fistula Acute, or Chronic, or Acute on Chronic? @ -Acute Uncomplicated (without systemic symptoms) or Complicated (systemic symptoms)? @ -Uncomplicated Side effects of treatment? @ -No Exacerbation, Progression, or Severe Exacerbation? @ -No Poses a threat to life or bodily function? How? (Chest pain, USA, HI, pneumonia, PE, COPD, DKA, ARF, appy, cholecystitis, CVA, Diverticulitis, Homicidal, Suici roshan, threat to staff... and all critical care pts) @ -No - Lab Data Result diagrams: 11/01/24 03:28 10/30/24 09:46 Lab Results 10/29/24 10/29/24 10/29/24 Range/Units 11:21 11:21 11:21 WBC 9.08 (4.50-10.00) 10*3/uL RBC 4.82 (4.40-5.60) 10*6/uL Hgb 13.7 (13.0-17.0) g/dL Hct 42.7 (39.6-50.0) % MCV 88.6 (80.0-97.0) fL MCH 28.4 (27.0-32.0) pg MCHC 32.1 (32.0-37.0) g/dL Plt Count 215 (140-440) 10*3/uL MPV 9.2 L (9.5-12.2) fL Immature Gran % (Auto) 0.4 % Neutrophils % 70.8 % Lymphocytes % 14.4 % Monocytes % 7.9 % Eosinophils % 5.7 % Basophils % 0.8 % Immature Gran # 0.04 (0.00-0.04) 10*3/uL Neutrophils # 6.42 (1.80-7.70) 10*3/uL Lymphocytes # 1.31 (0.90-5.00) 10*3/uL Monocytes # 0.72 (0.20-1.00) 10*3/uL Eosinophils # 0.52 H (0.04-0.35) 10*3/uL Basophils # 0.07 (0.00-0.10) 10*3/uL PT 9.8 L (10.0-12.5) sec INR 0.9 (<1.2) APTT 22.1 (22.0-30.0) sec Sodium 137 (137-145) mmol/L Potassium 5.8 H (3.5-5.1) mmol/L Chloride 97 L (98-107) mmol/L Carbon Dioxide 29 (22-30) mmol/L Anion Gap 11 mmol/L BUN 71 H (9-20) mg/dL Creatinine 7.13 H* (0.66-1.25) mg/dL Est GFR (CKD-EPI)AfAm 8 (>60 ml/min/1.73 sqM) Est GFR (CKD-EPI)NonAf 7 (>60 ml/min/1.73 sqM) Glucose 130 H (74-99) mg/dL Calcium 9.0 (8.4-10.2) mg/dL Magnesium 2.4 H (1.6-2.3) mg/dL Total Bilirubin 0.6 (0.2-1.3) mg/dL AST 26 (17-59) U/L ALT 22 (4-49) U/L Alkaline Phosphatase 91 (38-126) U/L Total Protein 7.2 (6.3-8.2) g/dL Albumin 4.0 (3.5-5.0) g/dL Disposition Clinical Impression: ESRD on dialysis, Clotted dialysis access Disposition: ADMITTED IP TO THIS HOSP Condition: Stable Is patient prescribed a controlled substance at d/c from ED?: No
[2024-10-29 11:37] LABS: Basophils # (A) 0.07 10*3/uL (0.00-0.10); Basophils % (A) 0.8 %; Eosinophils # (A) 0.52 10*3/uL (0.04-0.35); Eosinophils % (A) 5.7 %; HCT 42.7 % (39.6-50.0); HGB 13.7 g/dL (13.0-17.0); Lymphocytes # (A) 1.31 10*3/uL (0.90-5.00); Lymphocytes % (A) 14.4 %; MCH 28.4 pg (27.0-32.0); MCHC 32.1 g/dL (32.0-37.0); MCV 88.6 fL (80.0-97.0); Mean Platelet Volume 9.2 fL (9.5-12.2); Monocytes # (A) 0.72 10*3/uL (0.20-1.00); Monocytes % (A) 7.9 %; Neutrophils # (A) 6.42 10*3/uL (1.80-7.70); Neutrophils % (A) 70.8 %; Platelet Count 215 10*3/uL (140-440); RBC 4.82 10*6/uL (4.40-5.60); RDW 14.5 % (11.5-14.5); WBC 9.08 10*3/uL (4.50-10.00)
[2024-10-29 11:54] LABS: ALT 22 U/L (4-49); African American GFR (CKD) 8 (>60 ml/min/1.73 sqM); Anion Gap 11 mmol/L; Blood Urea Nitrogen 71 mg/dL (9-20); Carbon Dioxide 29 mmol/L (22-30); Chloride 97 mmol/L (98-107); Glucose 130 mg/dL (74-99); Non-African American GFR(CKD) 7 (>60 ml/min/1.73 sqM); Sodium 137 mmol/L (137-145); Total Bilirubin 0.6 mg/dL (0.2-1.3); Total Protein 7.2 g/dL (6.3-8.2)
[2024-10-29 11:55] LABS: AST 26 U/L (17-59); Alkaline Phosphatase 91 U/L (38-126); Magnesium 2.4 mg/dL (1.6-2.3); Potassium 5.8 mmol/L (3.5-5.1)
[2024-10-29 12:02] LABS: INR 0.9 (<1.2); Partial Thromboplastin Time 22.1 sec (22.0-30.0); Prothrombin Time 9.8 sec (10.0-12.5)
[2024-10-29] MEDS ORDERED: NALOXONE 0.4 MG/ML 1 ML VIAL IV PRN (12:39)
--- NOTE | 2024-10-29 13:11 | P.GSCN ---
History of Present Illness Consult date: 10/29/24 Reason for Consult: Blocked fistula Requesting physician: Ernestine Reyna History of present illness: This is a pleasant 69-year-old male with a past medical history of end-stage renal disease requiring hemodialysis. He has been getting dialysis since 2022. He has a left upper extremity AV graft that was not working at dialysis today. He is a scheduled Monday dialysis. Last dialysis went well on Monday. He states he does not realize that he was clotted until he went today. His graft was done in [place] he forgets the name of his surgeon. He had his tunneled catheter removed by Dr. Walter in May of this year. Sodium 137 potassium 5.8 BUN 71 creatinine 7.13 magnesium 2.4. He denies any shortness of breath or chest pain. No lower extremity swelling. No pain in his left arm. Review of Systems A 14 point review systems was completed all pertinent positives and negatives as stated in the HPI. Past Medical History Past Medical History: COPD, Diabetes Mellitus, Eye Disorder, Hyperlipidemia, Hypertension, Myocardial Infarction (SC), Osteoarthritis (OA), Renal Disease, Sleep Apnea/CPAP/BIPAP Additional Past Medical History / Comment(s): IDDM,Diabetic retinopathy, GLAUCOMA. HEMODIALYSIS ,-4 hours-access rt chest port. USES CPAP-machine currently not working calling [facility] Last Myocardial Infarction Date:: 2014 History of Any Multi-Drug Resistant Organisms: None Reported Past Surgical History: Joint Replacement, Tonsillectomy Additional Past Surgical History / Comment(s): rt total hip replacement, lasik eye surgery. FX JAW WIRED IN 1989,failed av fistula left upper arm Past Anesthesia/Blood Transfusion Reactions: Previous Problems w/ Anesthesia Additional Past Anesthesia/Blood Transfusion Reaction / Comm: pt states "cardiac arrest during hip replacement surgery with Dr Franklin at [facility] in 2014" Past Psychological History: No Psychological Hx Reported Smoking Status: Current every day smoker Past Alcohol Use History: None Reported Past Drug Use History: None Reported - Past Family History Sister(s) Family Medical History: Cancer Additional Family Medical History / Comment(s): ovarian CA, lung CA Brother(s) Family Medical History: Cancer Additional Family Medical History / Comment(s): prostate CA Medications and Allergies Home Medications Medication Instructions Recorded Confirmed Type Latanoprost/Pf [Latanoprost 0.005% 1 drop BOTH EYES DAILY 05/23/19 06/30/24 History Eye Drop] Atorvastatin Calcium [Lipitor] 80 mg PO HS 04/15/22 06/30/24 History Dorzolamide 2% [Trusopt 2%] 1 drop BOTH EYES DAILY 04/15/22 06/30/24 History Sertraline [Zoloft] 50 mg PO DAILY 06/15/24 06/30/24 History cloNIDine HCL [Catapres] 0.1 mg PO BID #60 tab 06/17/24 06/30/24 Rx hydrALAZINE HCL [Apresoline] 100 mg PO TID #90 tab 06/17/24 06/30/24 Rx Tiotropium 2.5 Mcg/Puff [Spiriva 2 puff INHALATION DAILY 07/01/24 07/01/24 History Respimat 2.5 Mcg] Docusate Sodium 100 mg PO BID PRN 10/29/24 10/29/24 History Insulin Aspart Prot/Insuln Asp See Protocol SQ AC-BID 10/29/24 10/29/24 History [NovoLOG MIX 70-30 Flexpen] Losartan [Cozaar] 25 mg PO BID 10/29/24 10/29/24 History Ondansetron Odt [Zofran Odt] 4 mg PO Q8H PRN 10/29/24 10/29/24 History Allergies Allergy/AdvReac Type Severity Reaction Status Date / Time clindamycin Allergy Anaphylaxis Verified 10/29/24 13:00 Surgical - Exam Vital Signs Temp Pulse Resp BP Pulse Ox 97.6 F 80 18 158/75 98 10/29/24 10:12 10/29/24 10:12 10/29/24 10:12 10/29/24 10:12 10/29/24 10:12 General appearance: The patient is alert, oriented, appears in no acute distress. HET: Head is normocephalic and atraumatic. Pupils are equal and reactive. Neck: Supple. Heart: Regular. Lungs: Equal expansion, normal respiratory effort. Abdomen: Soft, nontender, nondistended. Extremities: Normal skin color and turgor. Left upper extremity AV graft without palpable thrill and no audible bruit. Palpable radial pulse. No p tenderness with palpation at graft site. Neurological: No focal deficits. Strength and sensation are grossly intact. Results - Labs 10/29/24 11:21 10/29/24 11:21 Abnormal Lab Results - Last 24 Hours (Table) 10/29/24 Range/Units 11:21 MPV 9.2 L (9.5-12.2) fL Eosinophils # 0.52 H (0.04-0.35) 10*3/uL Assessment and Plan Assessment: 1. Thrombosed left upper extremity AV graft 2. End-stage renal disease on hemodialysis Plan: Patient is end-stage renal disease requiring hemodialysis. Has left upper extremity AV graft that is thrombosed. His vascular surgeon is out of some [place] however patient would like to stay here for treatment. 1. Keep n.p.o. for now 2. Possible fistulogram today or tomorrow, or possible tunneled catheter placement 3. Hemodialysis per recommendations from nephrology. Await further recommendations. 4. Rest of medical management per primary medical team Thank you for this consultation, we will continue to follow. The impression and plan of care has been dictated as directed. Dr. Mavis Roldan I performed a history and examination of this patient, discussed the same with the dictator. I agree with the dictator's note ,documented as a scribe. Any additional findings or plans will be noted.
[2024-10-29] MEDS: SODIUM ZIRCONIUM CYCLOSILICATE 10 GM PACKET PO ONE (15:21)
[2024-10-29] MEDS: ATORVASTATIN 80 MG TAB PO SCH (20:37)
[2024-10-29] MEDS: cloNIDine HCL 0.1 MG TAB PO SCH (20:37)
[2024-10-29] MEDS: LOSARTAN 25 MG TAB PO SCH (20:37)
[2024-10-29] MEDS: LATANOPROST 0.005% OPHTH DROPS 2.5 ML BTL BOTH EYES SCH (21:40)
[2024-10-30] MEDS ORDERED: DEXTROSE 50% SYRINGE 50 ML IVP PRN ×2 (07:55)
[2024-10-30] MEDS: SERTRALINE 50 MG TAB PO SCH (08:12)
[2024-10-30] MEDS: TIOTROPIUM 2.5 MCG INHALER INHALATION SCH (08:37)
[2024-10-30] MEDS: HYDROcodone/APAP 5-325MG 1 EACH TAB PO PRN (09:11)
[2024-10-30 10:00] LABS: HCT 39.8 % (39.6-50.0); MCH 29.5 pg (27.0-32.0); MCHC 32.7 g/dL (32.0-37.0); MCV 90.2 fL (80.0-97.0); Mean Platelet Volume 9.6 fL (9.5-12.2); Platelet Count 197 10*3/uL (140-440); RBC 4.41 10*6/uL (4.40-5.60); RDW 14.4 % (11.5-14.5)
[2024-10-30 10:15] LABS: African American GFR (CKD) 7 (>60 ml/min/1.73 sqM); Anion Gap 12 mmol/L; Blood Urea Nitrogen 76 mg/dL (9-20); Calcium 8.3 mg/dL (8.4-10.2); Carbon Dioxide 25 mmol/L (22-30); Chloride 102 mmol/L (98-107); Glucose 166 mg/dL (74-99); Magnesium 2.5 mg/dL (1.6-2.3); Non-African American GFR(CKD) 6 (>60 ml/min/1.73 sqM); Potassium 5.4 mmol/L (3.5-5.1); Sodium 139 mmol/L (137-145)
[2024-10-30] MEDS: hydrALAZINE HCL 50 MG TAB PO SCH (10:51)
[2024-10-30 12:03] LABS: Glucose,Whole Blood 129 mg/dL (70-110)
[2024-10-30] MEDS: INSULIN LISPRO (HumaLOG) 100 UNIT/ML 10 mL VL SQ SCH (12:10)
--- NOTE | 2024-10-30 12:15 | P.HPIM ---
History of Present Illness H&P Date: 10/30/24 Patient is a 69-year-old male with past medical history of insulin-dependent type 2 DM, HTN, HLD, COPD not on home oxygen, depression, ESRD on HD TTS, history of diabetic left foot ulcer and osteomyelitis, who presented to the ER from his dialysis center for a blocked fistula. On arrival patient was afebrile, hypertensive 140s over 70s, satting well on room air. Blood work showed no leukocytosis, normal hemoglobin and platelet count, normal sodium, potassium elevated 5.8, bicarb 29, normal liver enzymes. She was admitted for further evaluation of blocked fistula, nephrology and [facility] ular surgery consulted. Vascular surgery recommends fistulogram or possible tunneled catheter placement. Patient only complains of pain in LLE from chronic wounds. Pertinent positives and negatives as discussed in HPI, a complete review of systems was performed and all other systems are negative. Patient seen and examined at bedside. Vital signs reviewed General: nontoxic, no distress, appears at stated age Derm: warm, dry Head: atraumatic, normocephalic, symmetric Eyes: EOMI, no lid lag, anicteric sclera, pupils equal round reactive to light ENT: Nose and ears atraumatic Neck: No thyromegaly, supple Mouth: no lip lesion, mucus membranes moist Cardiovascular: S1S2 reg, no murmur, no edema Lungs: clear to auscultation bilateral, no rhonchi, no rales, no wheeze, no accessory muscle use Abdominal: soft, nontender to palpation, no guarding, no appreciable organomegaly Ext: no gross muscle atrophy, muscle strength muscle strength 5 out of 5 in all 4 extremities, no contractures left upper extremity fistula, no thrill identified by palpation or auscultation, left foot wrapped Neuro: CN II-XII grossly intact Psych: Alert, oriented, appropriate affect Assessment/Plan: Thrombosed LUE AV graft ESRD on HD TTS Hyperkalemia - Vascular surgery consulted, plan for possible fistulogram versus tunneled catheter placement -Nephrology consulted, appreciate recommendations - N.p.o. for possible procedure\\ Hypertension -Continue home hydralazine 100 3 times daily, clonidine 0.1 mg twice daily, losartan 25 mg twice daily, COPD not in acute exacerbation, not on home oxygen: Continue home Spiriva 2.52 puffs daily Hyperlipidemia: Continue home Lipitor 80 mg nightly Type II DM on insulin: Continue with SSI and Accu-Cheks, hypoglycemia precautions Left lower extremity chronic wounds: Patient requested Aurora and states he takes it at home, no Aurora on home medication list, refused Tylenol, will provide with one-time dose Aurora 5 for pain 4 out of 10. The patient is admitted with an anticipated left than 2 midnight stay as intervention status for evaluation of malfunctioning fistula. CODE STATUS: Full DVT prophylaxis: Heparin Anticipated discharge date: 10/[address]: Home A total of 40 minutes was spent on the care of this complex patient more than 50% of the time was spent in counseling and care coordination. Past Medical History Past Medical History: COPD, Diabetes Mellitus, Eye Disorder, Hyperlipidemia, Hypertension, Myocardial Infarction (PR), Osteoarthritis (OA), Renal Disease, Sleep Apnea/CPAP/BIPAP Additional Past Medical History / Comment(s): IDDM,Diabetic retinopathy, GLAUCOMA. HEMODIALYSIS ,,-4 hours-access rt chest port. USES CPAP-machine currently not working calling [facility] Last Myocardial Infarction Date:: 2014 History of Any Multi-Drug Resistant Organisms: None Reported Past Surgical History: Joint Replacement, Tonsillectomy Additional Past Surgical History / Comment(s): rt total hip replacement, lasik eye surgery. FX JAW WIRED IN 1989,failed av fistula left upper arm Past Anesthesia/Blood Transfusion Reactions: Previous Problems w/ Anesthesia Additional Past Anesthesia/Blood Transfusion Reaction / Comment(s): pt states "cardiac arrest during hip replacement surgery with Dr Franklin at [facility] in 2014" Past Psychological History: No Psychological Hx Reported Smoking Status: Current every day smoker Past Alcohol Use History: None Reported Additional Past Alcohol Use History / Comment(s): quit smoking approx 2009,smoked approx since age 13,<1ppd, started smoking again in april after Past Drug Use History: None Reported - Past Family History Sister(s) Family Medical History: Cancer Additional Family Medical History / Comment(s): ovarian CA, lung CA Brother(s) Family Medical History: Cancer Additional Family Medical History / Comment(s): prostate CA Medications and Allergies Home Medications Medication Instructions Recorded Confirmed Type Latanoprost/Pf [Latanoprost 0.005% 1 drop BOTH EYES HS 05/23/19 10/29/24 History Eye Drop] Atorvastatin Calcium [Lipitor] 80 mg PO HS 04/15/22 10/29/24 History Dorzolamide 2% [Trusopt 2%] 1 drop BOTH EYES TID 04/15/22 10/29/24 History Sertraline [Zoloft] 50 mg PO DAILY 06/15/24 10/29/24 History cloNIDine HCL [Catapres] 0.1 mg PO BID #60 tab 06/17/24 10/29/24 Rx hydrALAZINE HCL [Apresoline] 100 mg PO TID #90 tab 06/17/24 10/29/24 Rx Tiotropium 2.5 Mcg/Puff [Spiriva 2 puff INHALATION RT-DAILY 07/01/24 10/29/24 History Respimat 2.5 Mcg] Docusate Sodium 100 mg PO BID PRN 10/29/24 10/29/24 History Insulin Aspart Prot/Insuln Asp See Protocol SQ AC-BID 10/29/24 10/29/24 History [NovoLOG MIX 70-30 Flexpen] Losartan [Cozaar] 25 mg PO BID 10/29/24 10/29/24 History Ondansetron Odt [Zofran Odt] 4 mg PO Q8H PRN 10/29/24 10/29/24 History Allergies Allergy/AdvReac Type Severity Reaction Status Date / Time clindamycin Allergy Anaphylaxis Verified 10/29/24 13:00 Physical Exam Vitals: Vital Signs Temp Pulse Pulse Resp BP BP Pulse Ox 10/30/24 07:00 98.0 F 69 14 178/76 99 10/30/24 00:57 97.5 F L 67 18 166/67 99 10/29/24 22:04 97.3 F L 78 20 177/80 97 10/29/24 21:57 98.2 F 74 18 147/70 95 10/29/24 21:00 92 18 197/90 97 10/29/24 20:36 98.3 F 81 18 191/97 97 10/29/24 19:50 79 18 202/97 96 10/29/24 17:20 86 20 188/84 97 10/29/24 15:07 68 18 207/78 98 10/29/24 13:36 87 20 218/100 98 10/29/24 10:12 97.6 F 80 18 158/75 98 Intake and Output 10/29/24 10/30/24 10/30/24 22:59 06:59 14:59 Output Total 500 Balance -500 Output: Urine 500 Other: Voiding Method Urinal Urinal Results CBC & Chem 7: 10/30/24 09:46 10/30/24 09:46 Labs: Abnormal Lab Results - Last 24 Hours (Table) 10/29/24 10/29/24 10/29/24 Range/Units 11:21 11:21 11:21 MPV 9.2 L (9.5-12.2) fL Eosinophils # 0.52 H (0.04-0.35) 10*3/uL PT 9.8 L (10.0-12.5) sec Potassium 5.8 H (3.5-5.1) mmol/L Chloride 97 L (98-107) mmol/L BUN 71 H (9-20) mg/dL Creatinine 7.13 H* (0.66-1.25) mg/dL Glucose 130 H (74-99) mg/dL Magnesium 2.4 H (1.6-2.3) mg/dL
--- NOTE | 2024-10-30 13:13 | P.NPCON ---
History of Present Illness - Reason for Consult end stage renal disease - History of Present Illness Patient is a 69-year-old male with end-stage renal disease maintained on hemodialysis on Monday schedule. Patient is admitted to the hospital due to malfunctioning left arm AV graft. Patient has been evaluated by vascular surgery and is scheduled for fistulogram and possible thrombectomy this afternoon. Potassium was elevated at 5.8 and was treated medically. He denies any significant shortness of breath. Patient has chronic left lower extremity wound for which he follows with vas cular surgery and at the wound clinic. Past Medical History Past Medical History: COPD, Diabetes Mellitus, Eye Disorder, Hyperlipidemia, Hypertension, Myocardial Infarction ([place]), Osteoarthritis (OA), Renal Disease, Sleep Apnea/CPAP/BIPAP Additional Past Medical History / Comment(s): IDDM,Diabetic retinopathy, GLAUCOMA. HEMODIALYSIS ,,-4 hours-access rt chest port. USES CPAP-machine currently not working calling [facility] Last Myocardial Infarction Date:: 2014 History of Any Multi-Drug Resistant Organisms: None Reported Past Surgical History: Joint Replacement, Tonsillectomy Additional Past Surgical History / Comment(s): rt total hip replacement, lasik eye surgery. FX JAW WIRED IN 1989,failed av fistula left upper arm Past Anesthesia/Blood Transfusion Reactions: Previous Problems w/ Anesthesia Additional Past Anesthesia/Blood Transfusion Reaction / Comment(s): pt states "cardiac arrest during hip replacement surgery with Dr Franklin at [facility] in 2014" Past Psychological History: No Psychological Hx Reported Smoking Status: Current every day smoker Past Alcohol Use History: None Reported Additional Past Alcohol Use History / Comment(s): quit smoking approx 2009,smoked approx since age 13,<1ppd, started smoking again in april after Past Drug Use History: None Reported - Past Family History Sister(s) Family Medical History: Cancer Additional Family Medical History / Comment(s): ovarian CA, lung CA Brother(s) Family Medical History: Cancer Additional Family Medical History / Comment(s): prostate CA Medications and Allergies Home Medications Medication Instructions Recorded Confirmed Type Latanoprost/Pf [Latanoprost 0.005% 1 drop BOTH EYES HS 05/23/19 10/29/24 History Eye Drop] Atorvastatin Calcium [Lipitor] 80 mg PO HS 04/15/22 10/29/24 History Dorzolamide 2% [Trusopt 2%] 1 drop BOTH EYES TID 04/15/22 10/29/24 History Sertraline [Zoloft] 50 mg PO DAILY 06/15/24 10/29/24 History cloNIDine HCL [Catapres] 0.1 mg PO BID #60 tab 06/17/24 10/29/24 Rx hydrALAZINE HCL [Apresoline] 100 mg PO TID #90 tab 06/17/24 10/29/24 Rx Tiotropium 2.5 Mcg/Puff [Spiriva 2 puff INHALATION RT-DAILY 07/01/24 10/29/24 History Respimat 2.5 Mcg] Docusate Sodium 100 mg PO BID PRN 10/29/24 10/29/24 History Insulin Aspart Prot/Insuln Asp See Protocol SQ AC-BID 10/29/24 10/29/24 History [NovoLOG MIX 70-30 Flexpen] Losartan [Cozaar] 25 mg PO BID 10/29/24 10/29/24 History Ondansetron Odt [Zofran Odt] 4 mg PO Q8H PRN 10/29/24 10/29/24 History Allergies Allergy/AdvReac Type Severity Reaction Status Date / Time clindamycin Allergy Anaphylaxis Verified 10/29/24 13:00 Physical Exam Vitals: Vital Signs Temp Pulse Pulse Resp BP BP Pulse Ox 10/30/24 07:00 98.0 F 69 14 178/76 99 10/30/24 00:57 97.5 F L 67 18 166/67 99 10/29/24 22:04 97.3 F L 78 20 177/80 97 10/29/24 21:57 98.2 F 74 18 147/70 95 10/29/24 21:00 92 18 197/90 97 10/29/24 20:36 98.3 F 81 18 191/97 97 10/29/24 19:50 79 18 202/97 96 10/29/24 17:20 86 20 188/84 97 10/29/24 15:07 68 18 207/78 98 10/29/24 13:36 87 20 218/100 98 Intake and Output 10/29/24 10/30/24 10/30/24 22:59 06:59 14:59 Output Total 500 Balance -500 Output: Urine 500 Other: Voiding Method Urinal Urinal Urinal Patient is awake, comfortable, no acute distress Examination of the heart S1 and S2 Examination of the lungs bilateral breath sounds are heard Examination of lower extremities shows no edema right 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 End-stage renal disease on hemodialysis on Monday schedule 2. Thrombosed left arm AV graft scheduled for fistulogram and thrombectomy today 3. Hyperkalemia associated with end-stage renal disease 4. Right lower extremity wounds being followed at the wound clinic, improving per patient 5. CKD mineral bone disorder Plan: Hemodialysis today and repeat in a.m. after vascular intervention. Continue antihypertensive regimen from home. Check phosphorus as I do not see any phosphate binders noted on his med list. Thank you for the consultation. We will continue to follow the patient with you during his hospitalization
[2024-10-30] MEDS: LIDOCAINE 1% INJ 10MG/ML (30 ML VIAL-PF) SQ ONE (14:50)
[2024-10-30] MEDS: fentaNYL (PF) 50 MCG/1 ML VIAL IVP ONE ×2 (14:59→15:02)
[2024-10-30] MEDS: MIDAZOLAM 2 MG/2 ML VIAL IVP ONE (15:00)
[2024-10-30] MEDS: IOPAMIDOL-300 100ML BTL INJ ONE (15:28)
--- NOTE | 2024-10-30 16:22 | P.OP ---
Date of Procedure: 10/30/24 Preoperative Diagnosis: 1: Chronic renal failurehemodialysis dependent. 2: Thrombosed left upper extremity AV dialysis graft. Postoperative Diagnosis: Same. Procedure(s) Performed: 1: Cannulation left upper extremity AV dialysis graft x 2. 2: Fistulogram. 3: Percutaneous mechanical thrombectomy utilizing AngioJet. 4: Balloon dilation outflow anastomotic line stenosis and inflow anastomotic line. 5: Moderate conscious sedation x 37 minutes. Anesthesia: local (1% Xylocaine with 50 mcg of fentanyl and 2 mg of Versed.) Surgeon: Vu Palm Estimated Blood Loss (ml): 20 IV fluids (ml): 0 Urine output (ml): 0 Pathology: none sent Condition: stable Disposition: no change Indications for Procedure: Patient is a 69-year-old male with a history of hemodialysis dependent renal failure status post placement of a brachial artery to axillary vein AV graft at an outside institution. This has thrombosed and patient is now offered percutaneous revascularization. The procedure, risk and benefits were discussed with the patient. All questions were answered. Consent form was signed. Description of Procedure: Patient is brought to the special procedure suite. The left upper extremity sterilely prepped draped in usual manner. Patient received 50 mcg of fentanyl and 2 mg of Versed intravenously for moderate conscious sedation purposes. The graft was readily palpable and was cannulated both in the antegrade and retrograde direction and placement of the 6 Czech sheath in each direction. Fistulogram was performed. This demonstrated thrombosis of the graft and a high-grade outflow stenosis. Utilizing roadmapping a guidewire was utilized to cross this high-grade stenosis and the area was first balloon dilated with a 5 mm high-pressure balloon. Subsequently a 6 mm x 60 mm drug eluding balloon was utilized to dilate this area. Completion fistulogram was performed which demonstrated the stenosis to be nearly completely resolved. Guidewire was placed in the retrograde flow direction across the arterial anastomotic line. This was subsequently balloon dilated with a 5 mm balloon. Completion fistulogram demonstrated the graft to be patent with some residual thrombus. This was addressed utilizing AngioJet device to remove as much clot as possible. The patient became somewhat anxious and it was decided to stop the procedure at this junction. Shortly thereafter the patient's symptoms resolved. Each sheath was removed and the puncture wound was closed with the 4-0 nylon suture. Appropriate dressings were applied. At the completion of the case excellent pulse and bruit were noted. He was taken to his room in satisfactory and stable condition.
[2024-10-30 17:33] LABS: Glucose,Whole Blood 219 mg/dL (70-110)
--- NOTE | 2024-10-30 19:54 | IR ---
Fluoroscopy INDICATION: Pain FINDINGS: Fluoroscopy time: 5.4 minutes. Total dose area product (DAP) in uGy*m?, mGy*cm? (or similar): 0.762 Images obtained: 198. Images document the procedure. IMPRESSION: 1. Documentation of fluoroscopy. [facility], , 10/30/2024 7:52 PM
[2024-10-30 20:36] LABS: Glucose,Whole Blood 178 mg/dL (70-110)
[2024-10-31 05:59] LABS: Glucose,Whole Blood 133 mg/dL (70-110)
[2024-10-31 12:22] LABS: Glucose,Whole Blood 147 mg/dL (70-110)
--- NOTE | 2024-10-31 13:32 | P.PN ---
Subjective Patient is seen for follow-up for end-stage renal disease. Patient had thrombectomy performed yesterday however he clotted again and was not dialyzed. Patient is scheduled for repeat intervention/possible permacath placement today. He will be dialyzed today after access is obtained. No significant shortness of breath Serum potassium 5.4 on 10/30/2024. Objective - Vital Signs Vital signs: Vital Signs Temp 98.2 F 10/31/24 07:34 Pulse 82 10/31/24 07:34 Resp 18 10/31/24 07:34 BP 187/91 10/31/24 07:34 Pulse Ox 99 10/31/24 07:34 FiO2 Intake & Output 10/30/24 10/31/24 10/31/24 18:59 06:59 18:59 Intake Total 250 Output Total 500 550 Balance -250 -550 Intake: Hemodialysis 250 Output: Urine 250 550 Hemodialysis 130 Hemodialysis Net Amount 120 Other: Voiding Method Urinal Urinal # Voids 0 - Exam Patient is awake, comfortable, no acute distress Examination of the heart S1 and S2 Examination of the lungs bilateral breath sounds are heard Examination of lower extremities shows no edema right lower leg is wrapped including 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 End-stage renal disease on hemodialysis on Monday schedule 2. Thrombosed left arm AV graft status post thrombectomy yesterday but access was thrombosed again. Scheduled for repeat surgery today with possible IJ permacath placement 3. Hyperkalemia associated with end-stage renal disease 4. Right lower extremity wounds being followed at the wound clinic, improving per patient 5. CKD mineral bone disorder Plan: Hemodialysis today Continue antihypertensive regimen from home. Check phosphorus
[2024-10-31] MEDS: fentaNYL (PF) 50 MCG/1 ML VIAL IVP ONE ×5 (13:39→14:46)
[2024-10-31] MEDS: LIDOCAINE 2% (PF) 20 MG/ML 5 ML VIAL SQ ONE (13:39)
[2024-10-31] MEDS: MIDAZOLAM 2 MG/2 ML VIAL IVP ONE ×3 (13:39→14:25)
[2024-10-31] MEDS: HEPARIN SODIUM 1,000 UN/ML (10ML VL) MISCELLANE ONE (13:57)
--- NOTE | 2024-10-31 14:42 | P.PN ---
Subjective Progress Note Date: 10/31/24 Hospital Course: Patient is a 69-year-old male with past medical history of insulin-dependent t ype 2 DM, HTN, HLD, COPD not on home oxygen, depression, ESRD on HD TTS, history of diabetic left foot ulcer and osteomyelitis, who presented to the ER from his dialysis center for a blocked fistula. On arrival patient was afebrile, hypertensive 140s over 70s, satting well on room air. Blood work showed no leukocytosis, normal hemoglobin and platelet count, normal sodium, potassium elevated 5.8, bicarb 29, normal liver enzymes. She was admitted for further evaluation of blocked fistula, nephrology and vascular surgery consulted. Vascular surgery recommends fistulogram or possible tunneled catheter placement. He was taken for the procedure on 10/30, completion fistulogram demonstrated the graft to be patent with some residual thrombus, was attempted to remove as much clot as possible however patient became anxious and procedure was stopped, repeat procedure planned 10/31, plan for hemodialysis after access obtained. 10/31: Patient does not have any particular complaints, he just feels tired Pertinent positives and negatives as discussed above, a complete review of systems was performed and all other systems are negative. Vital signs reviewed General: nontoxic, no distress, appears at stated age Derm: warm, dry Head: atraumatic, normocephalic, symmetric Eyes: EOMI, no lid lag, anicteric sclera, pupils equal round reactive to light ENT: Nose and ears atraumatic Neck: No thyromegaly, supple Mouth: no lip lesion, mucus membranes moist Cardiovascular: S1S2 reg, no murmur, no edema Lungs: clear to auscultation bilateral, no rhonchi, no rales, no wheeze, no accessory muscle use Abdominal: soft, nontender to palpation, no guarding, no appreciable organomegaly Ext: no gross muscle atrophy, muscle strength muscle strength 5 out of 5 in all 4 extremities, no contractures left upper extremity fistula, thrill identified by palpation , left foot wrapped Neuro: CN II-XII grossly intact Psych: Alert, oriented, appropriate affect Assessment and Plan: Thrombosed LUE AV graft ESRD on HD TTS Hyperkalemia - Vascular surgery consulted, plan for repeat procedure 10/31 -Nephrology consulted, appreciate recommendations - N.p.o. for possible procedure\ Hypertension -Continue home hydralazine 100 3 times daily, clonidine 0.1 mg twice daily, losartan 25 mg twice daily, COPD not in acute exacerbation, not on home oxygen: Continue home Spiriva 2.52 puffs daily Hyperlipidemia: Continue home Lipitor 80 mg nightly Type II DM on insulin: Continue with SSI and Accu-Cheks, hypoglycemia p recautions Left lower extremity chronic wounds: Patient requested [place] and states he takes it at home, no [place] on home medication list, refused Tylenol, will provide with one-time dose [place] 5 for pain 4 out of 10. CODE STATUS: Full DVT prophylaxis: Heparin Anticipated discharge date: 10/[address]: Home Objective - Vital Signs Vital signs: Vital Signs Temp 98.2 F 10/31/24 07:34 Pulse 82 10/31/24 07:34 Resp 18 10/31/24 07:34 BP 187/91 10/31/24 07:34 Pulse Ox 99 10/31/24 07:34 FiO2 Intake & Output 10/30/24 10/31/24 10/31/24 18:59 06:59 18:59 Intake Total 250 Output Total 500 550 Balance -250 -550 Intake: Hemodialysis 250 Output: Urine 250 550 Hemodialysis 130 Hemodialysis Net Amount 120 Other: Voiding Method Urinal Urinal # Voids 0 - Labs CBC & Chem 7: 10/30/24 09:46 10/30/24 09:46 Labs: Abnormal Lab Results - Last 24 Hours (Table) 10/30/24 10/30/24 10/31/24 Range/Units 17:22 20:34 05:57 POC Glucose (mg/dL) 219 H 178 H 133 H (70-110) mg/dL 10/31/24 Range/Units 12:20 POC Glucose (mg/dL) 147 H (70-110) mg/dL
[2024-10-31] MEDS: HEPARIN SODIUM,PORCINE 10,000 UNIT in SODIUM CHLORIDE 0.9% 1,000 ML IRRIGATION ONE (14:53)
[2024-10-31] MEDS: SODIUM CHLORIDE 0.9% 1,000 ML IV ONE (14:53)
[2024-10-31] MEDS: IOPAMIDOL-370 100ML BTL INTRATHECA ONE (14:54)
[2024-10-31] MEDS: HEPARIN SODIUM,PORCINE (1 ML) 2,500 UNIT in SODIUM CHLORIDE 0.9% 250 ML IRRIGATION ONE (14:54)
--- NOTE | 2024-10-31 15:56 | P.OP ---
Date of Procedure: 10/31/24 Preoperative Diagnosis: 1: Thrombosed left upper extremity AV dialysis graft. 2: Chronic renal failurehemodialysis dependent. Postoperative Diagnosis: Same. Procedure(s) Performed: 1: Ultrasound and fluoroscopically guided placement of a tunneled hemodialysis catheter via left internal jugular vein approach. 2: Placement of two 6 Italian sheath left upper extremity dialysis graft. 3: Fistulogram. 4: Placement of 8 x 100 mm covered balloon expandable stent in the venous outflow tract. 5: Balloon dilation left upper extremity AV dialysis graft. 6: Central venogram. 7: Moderate conscious sedation. Anesthesia: local (1% Xylocaine for local anesthesia and multiple aliquots of fentanyl and Versed throughout the entirety of the case for moderate conscious sedation purposes.) Surgeon: Vu Palm Estimated Blood Loss (ml): 20 IV fluids (ml): 0 Urine output (ml): 0 Pathology: none sent Condition: stable Disposition: no change Indications for Procedure: Patient is a 69-year-old male with a longstanding history of chronic renal failure which is hemodialysis dependent. He had previously undergone creation of a left brachial artery to axillary vein AV graft. This recently thrombosed. Yesterday he had a thrombectomy and balloon dilation of this graft however the graft rethrombosed. Patient is now offered repeat percutaneous intervention of the dialysis graft as well as placement of a tunneled hemodialysis catheter should the graft rethrombosis. The procedure, risk and benefits were discussed with the patient. All questions were answered to patient's satisfaction. Description of Procedure: Patient was brought to the cardiac catheterization suite. Ultrasound imaging was performed of the internal jugular vein on a bilateral basis. The right internal jugular vein appeared quite small and possibly contained thrombus. The left lateral neck, supraclavicular and left upper extremity areas were sterilely prepped draped in usual manner. Utilizing ultrasound the left internal jugular vein was identified. 1% Xylocaine was utilized for local anesthesia of the tissues overlying this vein. Through this anesthetized area with the aid of ultrasound a micropuncture needle was utilized to cannulate the vein. Once cannulated a guidewire was advanced into the central venous system and its position was confirmed with fluoroscopy. The guidewire was withdrawn as was the dilator and a 0.035 inch Glidewire was advanced in the central venous system. This micropuncture sheath was withdrawn and vessel dilator was advanced and then withdrawn from over the wire. Eventually the dialysis catheter sheath and dilator were advanced over the guidewire. Guidewire and dilator were withdrawn. A palindrome type tunneled hemodialysis catheter measuring 23 cm was selected. 1% Xylocaine was utilized for local anesthesia of the tissues just below the angle of the clavicle. Skin incision was made at this level. Additional Xylocaine was injected into the soft tissues between the neck wound and the chest wound and the catheter was tunneled between these 2 wounds. The catheter was then advanced through the sheath and sheath was peeled away and the catheter was found to be positioned in the central venous system. Blood was easily aspirated through both ports and then both ports were flushed with heparinized saline solution and blocked with heparinized solution. The neck wound was then closed with 4-0 Monocryl placed in the intradermal space and the catheter was secured to the anterior chest wall with nylon suture. Appropriate dressings were applied. Attention was turned to the left upper extremity where a left brachial artery to axillary vein AV graft was identified. 1% Xylocaine was utilized for local anesthesia in 2 different locations overlying the graft. Through these anesthetized areas a micropuncture sheath was inserted into the graft and its position was confirmed with fluoroscopy. The needle was withdrawn and a micropuncture sheath and dilator were advanced over the guidewire. Guidewire and dilator were withdrawn and a 035 guidewire was advanced. A 6 Italian sheath was then advanced over the guidewire. Once sheath was placed in the antegrade and the other in the retrograde direction of flow. Fistulogram was performed. This demonstrated the outflow track to have a long segment stenosis. Guidewire was advanced through the stenotic area and a 8 mm x 100 mm Viabahn stent was selected and deployed in this area after the 6 Italian was exchanged for 7 Italian sheath. Postplacement the stent was dilated with a 7 mm balloon catheter. Fistulogram demonstrated good outflow however inflow yet remained a problem. Guidewire was advanced in the retrograde direction through the arterial anastomotic line. This area was dilated with a 5 mm followed by 6 mm balloon catheter which restored excellent inflow. Fistulogram demonstrated good flow characteristics through the entirety of the graft. Central venogram was also performed which demonstrated no evidence of central venous stenosis and good flow characteristics. Sheaths were removed and the puncture sites were closed with nylon suture. Appropriate dressings were applied. Patient tolerated procedure well and was returned to his room in satisfactory and stable condition. Total fluoroscopy time: 11.6 minutes. Total moderate conscious sedation time: 55 minutes. Total contrast volume utilized: 35 mL of Isovue 270.
--- NOTE | 2024-10-31 16:25 | XR ---
EXAMINATION TYPE: XR chest 1V portable DATE OF EXAM: 10/31/2024 4:00 PM COMPARISON: None. CLINICAL INDICATION: Male, 69 years old with history of hemodialysis catheter insertion. R/o pneumoth orax, TECHNIQUE: XR chest 1V portable view(s) obtained. FINDINGS: The heart size is normal. The pulmonary vasculature is normal. Right lower lobe infiltrate is present. This is silhouetting the diaphragm. Double-lumen catheter is in place with the tips in the distal superior vena cava. No pneumothorax is evident. Note is made of a left axillary vascular stent IMPRESSION: 1. Placement of a double-lumen catheter on the left with the tips in the distal superior vena cava. N o pneumothorax evident. 2. Left lower lobe infiltrate. Correlate for atelectasis or pneumonia. [facility], , 10/31/2024 4:23 PM
[2024-10-31 17:08] LABS: Glucose,Whole Blood 169 mg/dL (70-110)
--- NOTE | 2024-10-31 17:13 | IR ---
Fluoroscopy INDICATION: Pain FINDINGS: Fluoroscopy time: 11.6 minutes Total dose area product (DAP) in uGy*m?, mGy*cm? (or similar): 10.1 Images obtained: 715. Images document the procedure. IMPRESSION: 1. Documentation of fluoroscopy. [facility], , 10/31/2024 5:10 PM
[2024-10-31 21:34] LABS: Glucose,Whole Blood 133 mg/dL (70-110)
[2024-10-31] MEDS: DESMOPRESSIN ACETATE 24 MCG in SODIUM CHLORIDE 0.9% 50 ML IVPB ONE (21:46)
[2024-10-31] MEDS: HYDROcodone/APAP 5-325MG 1 EACH TAB PO PRN (21:47)
[2024-10-31] MEDS: HYDROcodone/APAP 5-325MG 1 EACH TAB PO STA (21:55)
[2024-11-01 06:15] LABS: Glucose,Whole Blood 153 mg/dL (70-110)
[2024-11-01 08:23] LABS: Basophils # (A) 0.04 X 10*3/uL (0.00-0.10); Basophils % (A) 0.4 %; Eosinophils # (A) 0.08 X 10*3/uL (0.04-0.35); Eosinophils % (A) 0.8 %; HCT 34.9 % (39.6-50.0); HGB 11.1 g/dL (13.0-17.0); Lymphocytes # (A) 0.55 X 10*3/uL (0.90-5.00); Lymphocytes % (A) 5.5 %; MCH 28.6 pg (27.0-32.0); MCHC 31.8 g/dL (32.0-37.0); MCV 89.9 FL (80.0-97.0); Monocytes # (A) 0.59 X 10*3/uL (0.20-1.00); Monocytes % (A) 5.9 %; NRBC Per 100 WBC 0 X 10*3/uL (0.00-0.01); Neutrophils # (A) 8.68 X 10*3/uL (1.80-7.70); Platelet Count 124 X 10*3/uL (140-440); RBC 3.88 X 10*6/uL (4.40-5.60); RDW 14.6 % (11.5-14.5); WBC 9.98 X 10*3/uL (4.50-10.00)
[2024-11-01 08:27] VITALS: RESP 16
--- NOTE | 2024-11-01 10:03 | P.PN ---
Subjective Progress Note Date: 11/01/24 Principal diagnosis: Malfunctioning AV graft Patient seen and examined today as a follow-up. Yesterday he underwent repeat fistulogram with balloon expandable stent, balloon dilation and tunneled HD catheter placement of the left IJV. Patient states his arm is sore. They were able to access AV graft for dialysis yesterday without any complications. Chest x-ray confirmed placement of left tunnel catheter, no pneumothorax. Patient states he is scheduled to get hemodialysis again today. Objective - Vital Signs Vital signs: Vital Signs Temp 98.2 F 11/01/24 07:10 Pulse 79 11/01/24 07:10 Resp 16 11/01/24 07:10 BP 160/71 11/01/24 07:10 Pulse Ox 100 11/01/24 07:10 FiO2 Intake & Output 10/31/24 11/01/24 11/01/24 18:59 06:59 18:59 Intake Total 190 400 118 Output Total 3400 Balance 190 -3000 118 Intake: IV 50 Oral 140 118 Hemodialysis 400 Output: Hemodialysis 1900 Hemodialysis Net Amount 1500 Other: # Voids 2 0 - Exam General appearance: The patient is alert, oriented, appears in no acute distress. HET: Head is normocephalic and atraumatic. Pupils are equal and reactive. Neck: Supple. Chest: Left upper chest with tunneled dialysis catheter in place with pressure dressing without any bleeding. Heart: Regular. Lungs: Equal expansion, normal respiratory effort. Abdomen: Soft, nontender, nondistended. Extremities: Normal skin color and turgor. Left upper extremity AV graft with palpable thrill and audible bruit, dressing clean dry and intact. Neurological: Alert and oriented. - Labs CBC & Chem 7: 11/01/24 03:28 10/30/24 09:46 Labs: Abnormal Lab Results - Last 24 Hours (Table) 10/30/24 10/31/24 10/31/24 Range/Units 09:46 12:20 17:03 RBC (4.40-5.60) X 10*6/uL Hgb (13.0-17.0) g/dL Hct (39.6-50.0) % MCHC (32.0-37.0) g/dL RDW (11.5-14.5) % Plt Count (140-440) X 10*3/uL Neutrophils # (1.80-7.70) X 10*3/uL Lymphocytes # (0.90-5.00) X 10*3/uL POC Glucose (mg/dL) 147 H 169 H (70-110) mg/dL Phosphorus 6.0 H (2.4-5.1) mg/dL 10/31/24 11/01/24 11/01/24 Range/Units 21:31 03:28 06:08 RBC 3.88 L (4.40-5.60) X 10*6/uL Hgb 11.1 L (13.0-17.0) g/dL Hct 34.9 L (39.6-50.0) % MCHC 31.8 L (32.0-37.0) g/dL RDW 14.6 H (11.5-14.5) % Plt Count 124 L (140-440) X 10*3/uL Neutrophils # 8.68 H (1.80-7.70) X 10*3/uL Lymphocytes # 0.55 L (0.90-5.00) X 10*3/uL POC Glucose (mg/dL) 133 H 153 H (70-110) mg/dL Phosphorus (2.4-5.1) mg/dL Assessment and Plan Assessment: 1. Thrombosed left upper extremity AV graft status post fistulogram and balloon angioplasty 2. Placement of left IJV tunneled dialysis catheter 3. End-stage renal disease requiring hemodialysis Plan: 1. Hemodialysis per recommendations from nephrology 2. Patient to follow-up with vascular surgery in 2 weeks. If no further problems with AV graft tunnel graft can be removed in the office. Thank you for this consultation. We will sign off at this time. The impression and plan of care has been dictated as directed. Dr. Mavis Roldan I performed a history and examination of this patient, discussed the same with the dictator. I agree with the dictator's note ,documented as a scribe. Any additional findings or plans will be noted.
[2024-11-01] MEDS: CALCIUM CARBONATE 500 MG CHEWABLE PO PRN (11:50)
[2024-11-01 11:59] LABS: Glucose,Whole Blood 150 mg/dL (70-110)
[2024-11-01 14:50] VITALS: BP 134/89; PULSE 83; TEMP 98.6
--- NOTE | 2024-11-01 15:39 | P.DS ---
Providers Date of admission: 10/29/24 13:56 Attending physician: Beatrice Benavidez MD Consults: 10/29/24 11:27 Consult Physician Routine Consulting Provider: Bereket Hugo Consult Reason/Comments: blocked fistula Do you want consulting provider notified?: Already Contacted 10/29/24 12:39 Consult Physician Routine Consulting Provider: Gretchen Landrum Consult Reason/Comments: ESRD Do you want consulting provider notified?: Yes Primary care physician: Dawson Jackson MD Hospital Course: Discharge Diagnosis: Thrombosed left upper extremity AV graft status post fistulogram and balloon angioplasty Placement of left IJV tunneled dialysis catheter ESRD on HD TTS Hyperkalemia Hypertension COPD not in exacerbation Hyperlipidemia Type II DM on insulin Left lower extremity chronic wounds Hospital Course: Patient is a 69-year-old male with past medical history of insulin-dependent type 2 DM, HTN, HLD, COPD not on home oxygen, depression, ESRD on HD TTS, history of diabetic left foot ulcer and osteomyelitis, who presented to the ER from his dialysis center for a blocked fistula. On arrival patient was afebrile, hypertensive 140s over 70s, satting well on room air. Blood work showed no leukocytosis, normal hemoglobin and platelet count, normal sodium, potassium elevated 5.8, bicarb 29, normal liver enzymes. She was admitted for further evaluation of blocked fistula, nephrology and vascu lar surgery consulted. Vascular surgery recommends fistulogram or possible tunneled catheter placement. He was taken for the procedure on 10/30, completion fistulogram demonstrated the graft to be patent with some residual thrombus, was attempted to remove as much clot as possible however patient became anxious and procedure was stopped, repeat procedure performed on 10/31, successful, left IJV did not have dialysis catheter placed. Patient was dialyzed after. 11/01, seen examined at bedside, no active complaints, feels he is ready for discharge. Cleared by vascular surgery, recommend to follow-up in 2 weeks, if no further problems with the AV graft and old graft can be removed in the office. Per nephrology, patient can be dialyzed tomorrow based off his schedule Patient seen and examined at bedside.[] Vital signs reviewed and stable. General: nontoxic, no distress, appears at stated age Derm: warm, dry Head: atraumatic, normocephalic, symmetric Eyes: EOMI, no lid lag, anicteric sclera, pupils equal round reactive to light ENT: Nose and ears atraumatic Neck: No thyromegaly, supple Mouth: no lip lesion, mucus membranes moist Cardiovascular: S1S2 reg, no murmur, no edema Lungs: clear to auscultation bilateral, no rhonchi, no rales, no wheeze, no accessory muscle use Abdominal: soft, nontender to palpation, no guarding, no appreciable organomegaly Ext: no gross muscle atrophy, muscle strength muscle strength 5 out of 5 in all 4 extremities, no contractures left upper extremity fistula, thrill identified by palpation , left foot wrapped Neuro: CN II-XII grossly intact Psych: Alert, oriented, appropriate affect A total of 40inutes of time were spent preparing this complex discharge summary. Patient was discharged on 11/01/2024 Patient Condition at Discharge: Stable Plan - Discharge Summary New Discharge Prescriptions: Continue Latanoprost/Pf [Latanoprost 0.005% Eye Drop] 1 drop BOTH EYES HS Dorzolamide 2% [Trusopt 2%] 1 drop BOTH EYES TID Atorvastatin Calcium [Lipitor] 80 mg PO HS Tiotropium 2.5 Mcg/Puff [Spiriva Respimat 2.5 Mcg] 2 puff INHALATION RT-DAILY Losartan [Cozaar] 25 mg PO BID Sertraline [Zoloft] 50 mg PO DAILY hydrALAZINE HCL [Apresoline] 100 mg PO TID #90 tab cloNIDine HCL [Catapres] 0.1 mg PO BID #60 tab Ondansetron Odt [Zofran ODT] 4 mg PO Q8H PRN PRN Reason: Nausea Docusate Sodium 100 mg PO BID PRN PRN Reason: Constipation Insulin Aspart Prot/Insuln Asp [NovoLOG MIX 70-30 Flexpen] See Protocol SQ AC-BID Discharge Medication List Latanoprost/Pf [Latanoprost 0.005% Eye Drop] 1 drop BOTH EYES HS 05/23/19 [History] Atorvastatin Calcium [Lipitor] 80 mg PO HS 04/15/22 [History] Dorzolamide 2% [Trusopt 2%] 1 drop BOTH EYES TID 04/15/22 [History] Sertraline [Zoloft] 50 mg PO DAILY 06/15/24 [History] cloNIDine HCL [Catapres] 0.1 mg PO BID #60 tab 06/17/24 [Rx] hydrALAZINE HCL [Apresoline] 100 mg PO TID #90 tab 06/17/24 [Rx] Tiotropium 2.5 Mcg/Puff [Spiriva Respimat 2.5 Mcg] 2 puff INHALATION RT-DAILY 07/01/24 [History] Docusate Sodium 100 mg PO BID PRN 10/29/24 [History] Insulin Aspart Prot/Insuln Asp [NovoLOG MIX 70-30 Flexpen] See Protocol SQ AC- BID 10/29/24 [History] Losartan [Cozaar] 25 mg PO BID 10/29/24 [History] Ondansetron Odt [Zofran ODT] 4 mg PO Q8H PRN 10/29/24 [History] Follow up Appointment(s)/Referral(s): [facility]- BAUDILIO,Katerin [NON-STAFF] - As Needed () Vu Palm DO [Doctor of Osteopathic Medicine] - 2 Weeks ProviderMILAGROS [NON-STAFF] - 1 Week Activity/Diet/Wound Care/Special Instructions: Please, follow up with PCP, nephrology, vascular surgery Discharge Disposition: HOME SELF-CARE
--- NOTE | 2024-11-01 17:16 | P.PN ---
Subjective Patient is seen for follow-up for end-stage renal disease. Status post hemodialysis yesterday. Patient's access worked well yesterday with no issues. No significant complaints today. Objective - Vital Signs Vital signs: Vital Signs Temp 98.6 F 11/01/24 14:15 Pulse 83 11/01/24 14:15 Resp 16 11/01/24 14:15 BP 134/89 11/01/24 14:15 Pulse Ox 97 11/01/24 14:15 FiO2 Intake & Output 10/31/24 11/01/24 11/01/24 18:59 06:59 18:59 Intake Total 190 400 118 Output Total 3400 Balance 190 -3000 118 Intake: IV 50 Oral 140 118 Hemodialysis 400 Output: Hemodialysis 1900 Hemodialysis Net Amount 1500 Other: Voiding Method Toilet # Voids 2 0 3 # Bowel Movements 0 - Exam Patient is awake, comfortable, no acute distress Examination of lower extremities shows no edema right lower leg is wrapped including the foot RO[employer] exam grossly intact - Labs CBC & Chem 7: 11/01/24 03:28 10/30/24 09:46 Labs: Abnormal Lab Results - Last 24 Hours (Table) 10/30/24 10/31/24 11/01/24 Range/Units 09:46 21:31 03:28 RBC 3.88 L (4.40-5.60) X 10*6/uL Hgb 11.1 L (13.0-17.0) g/dL Hct 34.9 L (39.6-50.0) % MCHC 31.8 L (32.0-37.0) g/dL RDW 14.6 H (11.5-14.5) % Plt Count 124 L (140-440) X 10*3/uL Neutrophils # 8.68 H (1.80-7.70) X 10*3/uL Lymphocytes # 0.55 L (0.90-5.00) X 10*3/uL POC Glucose (mg/dL) 133 H (70-110) mg/dL Phosphorus 6.0 H (2.4-5.1) mg/dL 11/01/24 11/01/24 Range/Units 06:08 11:58 RBC (4.40-5.60) X 10*6/uL Hgb (13.0-17.0) g/dL Hct (39.6-50.0) % MCHC (32.0-37.0) g/dL RDW (11.5-14.5) % Plt Count (140-440) X 10*3/uL Neutrophils # (1.80-7.70) X 10*3/uL Lymphocytes # (0.90-5.00) X 10*3/uL POC Glucose (mg/dL) 153 H 150 H (70-110) mg/dL Phosphorus (2.4-5.1) mg/dL Assessment and Plan Assessment: 1. End-stage renal disease on hemodialysis on Monday schedule 2. Thrombosed left arm AV graft status post thrombectomy yesterday but access was thrombosed again. Status post repeat thrombectomy on 10/31/2024 3. Hyperkalemia associated with end-stage renal disease 4. Right lower extremity wounds being followed at the wound clinic, improving per patient 5. CKD mineral bone disorder Plan: Hemodialysis again in a.m. We may be able to run a short treatment today based on staffing. No urgent indication for dialysis.
== END 2024-11-01 16:01 | disposition home or self-care (01) | DRG 252 ==
LOC: EC 10:00 → 6NMEDSUR 13:55 → OBSVTOIN 13:56 → 6NMEDSUR 18:08
PROVIDERS: ADMIT Student in an Organized Health Care Education/Training Program; ATTEND Student in an Organized Health Care Education/Training Program
PROC: 03CY3ZZ Extirpation of Matter from Upper Artery, Percutaneous Approach (ICD-10-PCS; 2024-10-30)
PROC: 5A1D70Z Performance of Urinary Filtration, Intermittent, Less than 6 Hours Per Day (ICD-10-PCS; 2024-10-30)
PROC: B51W1ZZ Fluoroscopy of Dialysis Shunt/Fistula using Low Osmolar Contrast (ICD-10-PCS; principal; 2024-10-30 13:30)
PROC: 0JH63XZ Insertion of Tunneled Vascular Access Device into Chest Subcutaneous Tissue and Fascia, Percutaneous Approach (ICD-10-PCS; 2024-10-31)
PROC: B5181ZA Fluoroscopy of Superior Vena Cava using Low Osmolar Contrast, Guidance (ICD-10-PCS; 2024-10-31)
PROC: 037Y3DZ Dilation of Upper Artery with Intraluminal Device, Percutaneous Approach (ICD-10-PCS; 2024-10-31 07:30)
PROC: 02HV33Z Insertion of Infusion Device into Superior Vena Cava, Percutaneous Approach (ICD-10-PCS; 2024-10-31 07:30)
DX: T82.868A Thrombosis due to vascular prosthetic devices, implants and grafts, initial encounter (principal); N18.6 End stage renal disease; I12.0 Hypertensive chronic kidney disease with stage 5 chronic kidney disease or end stage renal disease; Z99.2 Dependence on renal dialysis; J44.9 Chronic obstructive pulmonary disease, unspecified; E11.22 Type 2 diabetes mellitus with diabetic chronic kidney disease; Z79.4 Long term (current) use of insulin; E11.319 Type 2 diabetes mellitus with unspecified diabetic retinopathy without macular edema; M19.90 Unspecified osteoarthritis, unspecified site; M89.8X9 Other specified disorders of bone, unspecified site; I25.2 Old myocardial infarction; E87.5 Hyperkalemia; E78.5 Hyperlipidemia, unspecified; Z86.74 Personal history of sudden cardiac arrest; Y83.2 Surgical operation with anastomosis, bypass or graft as the cause of abnormal reaction of the patient, or of later complication, without mention of misadventure at the time of the procedure; Z79.899 Other long term (current) drug therapy; Z96.641 Presence of right artificial hip joint; Z88.1 Allergy status to other antibiotic agents
CPT/HCPCS: 36415; 36558; 36905; 71045; 76937; 77001; 80048; 80053; 83735; 84100; 85025; 85027; 85610; 85730; 90935; 93005; 94640; 99285

== ENCOUNTER 2024-11-05 08:36 | Emergency (ER) | payer OTHER ==
--- NOTE | 2024-11-05 08:55 | ED ---
General Adult HPI - General Stated complaint: Bleeding in central line Time Seen by Provider: 11/05/24 08:36 Source: patient, RN notes reviewed, old records reviewed - History of Present Illness Initial comments: This is a 69-year-old male who presents to the emergency department stating that he recently had a catheter placed in his internal jugular vein. Patient states he also had his fistula repaired in his left upper extremity. Patient states he went to dialysis today and his catheter was bleeding so much that they did not do dialysis and they sent him to the emergency department. They did place pressure on the site when it was bleeding. Patient denies any pain. Patient denies lightheadedness or dizziness. Patient has any blood thinners. - Related Data Home Medications Medication Instructions Recorded Confirmed Latanoprost/Pf [Latanoprost 0.005% 1 drop BOTH EYES HS 05/23/19 11/05/24 Eye Drop] Atorvastatin Calcium [Lipitor] 80 mg PO HS 04/15/22 11/05/24 Dorzolamide 2% [Trusopt 2%] 1 drop BOTH EYES TID 04/15/22 11/05/24 Sertraline [Zoloft] 50 mg PO DAILY 06/15/24 11/05/24 Tiotropium 2.5 Mcg/Puff [Spiriva 2 puff INHALATION RT-DAILY 07/01/24 11/05/24 Respimat 2.5 Mcg] Docusate Sodium 100 mg PO BID PRN 10/29/24 11/05/24 Insulin Aspart Prot/Insuln Asp See Protocol SQ AC-BID 10/29/24 11/05/24 [NovoLOG MIX 70-30 Flexpen] Losartan [Cozaar] 25 mg PO BID 10/29/24 11/05/24 Ondansetron Odt [Zofran ODT] 4 mg PO Q8H PRN 10/29/24 11/05/24 Previous Rx's Medication Instructions Recorded cloNIDine HCL [Catapres] 0.1 mg PO BID #60 tab 06/17/24 hydrALAZINE HCL [Apresoline] 100 mg PO TID #90 tab 06/17/24 Allergies Allergy/AdvReac Type Severity Reaction Status Date / Time clindamycin Allergy Anaphylaxis Verified 11/05/24 11:41 Review of Systems ROS Statement: Those systems with pertinent positive or pertinent negative responses have been documented in the HPI. ROS Other: All systems not noted in ROS Statement are negative. Past Medical History Past Medical History: COPD, Diabetes Mellitus, Eye Disorder, Hyperlipidemia, Hypertension, Myocardial Infarction ([place]), Osteoarthritis (OA), Renal Disease, Sleep Apnea/CPAP/BIPAP Additional Past Medical History / Comment(s): IDDM,Diabetic retinopathy, GLAUCOMA. HEMODIALYSIS TU,TH,SA-4 hours-access rt chest port. USES CPAP-machine currently not working calling [facility] Last Myocardial Infarction Date:: 2014 History of Any Multi-Drug Resistant Organisms: None Reported Past Surgical History: Joint Replacement, Tonsillectomy Additional Past Surgical History / Comment(s): rt total hip replacement, lasik eye surgery. FX JAW WIRED IN 1989,failed av fistula left upper arm Past Anesthesia/Blood Transfusion Reactions: Previous Problems w/ Anesthesia Additional Past Anesthesia/Blood Transfusion Reaction / Comment(s): pt states "cardiac arrest during hip replacement surgery with Dr Franklin at [facility] in 2014" Past Psychological History: No Psychological Hx Reported Smoking Status: Current every day smoker Past Alcohol Use History: None Reported Past Drug Use History: None Reported - Past Family History Sister(s) Family Medical History: Cancer Additional Family Medical History / Comment(s): ovarian CA, lung CA Brother(s) Family Medical History: Cancer Additional Family Medical History / Comment(s): prostate CA General Exam - General Exam Comments Initial Comments: GENERAL: Patient is well-developed and well-nourished. Patient is nontoxic and well- hydrated and is in no acute distress. ENT: Neck is soft and supple. No significant lymphadenopathy is noted. Oropharynx is clear. Moist mucous membranes. Neck has full range of motion without eliciting any pain. The catheter in the left internal jugular vein is bleeding at a very slow rate. EYES: The sclera were anicteric and conjunctiva were pink and moist. Extraocular movements were intact and pupils were equal round and reactive to light. Eyel ids were unremarkable. PULMONARY: Unlabored respirations. Good breath sounds bilaterally. No audible rales rhonchi or wheezing was noted. CARDIOVASCULAR: There is a regular rate and rhythm without any murmurs gallops or rubs. ABDOMEN: Soft and nontender with normal bowel sounds. SKIN: Skin is clear with no lesions or rashes and otherwise unremarkable. NEUROLOGIC: Patient is alert and oriented x3. Cranial nerves II through XII are grossly intact. Motor and sensory are also intact. Normal speech, volume and content. Symmetrical smile. MUSCULOSKELETAL: Normal extremities with adequate strength and full range of motion. LYMPHATICS: No significant lymphadenopathy is noted PSYCHIATRIC: Normal psychiatric evaluation. Course Vital Signs 11/05/24 11/05/24 11/05/24 08:41 10:04 11:26 Temperature 98.9 F Pulse Rate 90 87 86 Respiratory 16 17 18 Rate Blood Pressure 176/88 176/83 160/79 O2 Sat by Pulse 98 97 97 Oximetry 11/05/24 13:13 Temperature Pulse Rate 94 Respiratory 18 Rate Blood Pressure 173/83 O2 Sat by Pulse 95 Oximetry Medical Decision Making - Medical Decision Making Was pt. sent in by a medical professional or institution (, [facility], [employer], urgent care, hospital, or [facility]...) When possible be specific @ -No Did you speak to anyone other than the patient for history (EMS, parent, family, police, friend...)? What history was obtained from this source @ -No Did you review nursing and triage notes (agree or disagree)? Why? @ -I reviewed and agree with nursing and triage notes Were old charts reviewed (outside hosp., previous admission, EMS record, old EKG, old radiological studies, urgent care reports/EKG's, [facility] records)? Report findings @ -No old charts were reviewed Differential Diagnosis? @ -Coagulopathy, postsurgical bleeding, platelet dysfunction, this is not an all-inclusive list EKG interpreted by me (3pts min.). @ -As above X-rays interpreted by me (1pt min.). @ -None done CT interpreted by me (1pt min.). @ -None done U/S interpreted by me (1pt. min.). @ -None done What testing was considered but not performed or refused? (CT, X-rays, U/S, labs)? Why? @ -None What meds were considered but not given or refused? Why? @ -None Did you discuss the management of the patient with other professionals (professionals i.e. [facility] Lockett, [employer], lab, RT, psych nurse, social media analyst, figure refinisher and repairer, teacher, financial services officer, rn case management)? Give summary @ -I spoke with Dr. Myers and she wanted DDAVP given. I also spoke with Dr. Jalloh and she did not feel at this time any intervention was necessary Was smoking cessation discussed for >3mins.? @ -No Was critical care preformed (if so, how long)? @ -No Were there social determinants of health that impacted care today? How? (Homelessness, low income, unemployed, alcoholism, drug addiction, transportation, low edu. Level, literacy, decrease access to med. care, skilled nursing, rehab)? @ -No Was there de-escalation of care discussed even if they declined (Discuss DNR or withdrawal of care, Hospice)? DNR status @ -No What co-morbidities impacted this encounter? (DM, HTN, Smoking, COPD, CAD, Cancer, CVA, ARF, Chemo, Hep., AIDS, mental health diagnosis, sleep apnea, morbid obesity)? @ -None Was patient admitted / discharged? Hospital course, mention meds given and route, prescriptions, significant lab abnormalities, going to OR and other pertinent info. @ -Patient had DDAVP given and head pressure placed on the catheter and after a period of time the bleeding stopped patient will be set up for outpatient dialysis Undiagnosed new problem with uncertain prognosis? @ -No Drug Therapy requiring intensive monitoring for toxicity (Heparin, Nitro, Insuli n, Cardizem)? @ -No Were any procedures done? @ -No Diagnosis/symptom? @ -Post catheter placement bleeding Acute, or Chronic, or Acute on Chronic? @ -Acute Uncomplicated (without systemic symptoms) or Complicated (systemic symptoms)? @ -Uncomplicated Side effects of treatment? @ -No Exacerbation, Progression, or Severe Exacerbation? @ -No Poses a threat to life or bodily function? How? (Chest pain, [place], [place], pneumonia, PE, COPD, DKA, ARF, appy, cholecystitis, CVA, Diverticulitis, Homicidal, Suicidal, threat to staff... and all critical care pts) @ -No Disposition Clinical Impression: Hemorrhage from dialysis catheter Disposition: HOME SELF-CARE Condition: Good Is patient prescribed a controlled substance at d/c from ED?: No Referrals: Dawson Jackson MD [Primary Care Provider] - 1-2 days Time of Disposition: 14:05
[2024-11-05] MEDS: DESMOPRESSIN ACETATE 25 MCG in SODIUM CHLORIDE 0.9% 50 ML IVPB ONE (12:04)
[2024-11-05 14:48] VITALS: BP 142/78; PULSE 95; RESP 17; TEMP 99.7
== END 2024-11-05 14:55 | disposition home or self-care (01) ==
LOC: EC 08:36
DX: T83.83XA Hemorrhage due to genitourinary prosthetic devices, implants and grafts, initial encounter (principal); F17.200 Nicotine dependence, unspecified, uncomplicated; Z88.1 Allergy status to other antibiotic agents
CPT/HCPCS: 99284; 96365; J2597